=== PATIENT | male | born 1970 | race African-American/Black ===

== ENCOUNTER 2017-10-05 22:05 | Emergency (ER) | payer BC ==
[2017-10-05 22:22] VITALS: BP 115/67; PULSE 60; TEMP 98.6; BMI 24.0
--- NOTE | 2017-10-05 23:03 | PDOC ---
History of Present Illness - General History Source: Patient Exam Limitations: No Limitations - History of Present Illness Initial Comments: 10/05/17 23:23 The patient is a 47 year old male with a significant past medical history of hypertension who presents to the ED with 3 days of diarrhea. The patient reports 3 days of constant diarrhea and states everything he eats runs through him. Patient reports 3 episodes of loose stool today. He also reports generalized abdominal aching associated with diarrhea. Patient works at a [employer] and notes some of his coworkers are sick with a stomach flu. Denies fever or chills. Denies nausea or vomiting. Denies cough or rhinorrhea. Denies chest pain or shortness of breath. Denies any other symptoms. <Asael Rodriguez - Last Filed: 10/05/17 23:23> <Loyda Santoro - Last Filed: 10/06/17 05:04> - General Chief Complaint: Weakness Stated Complaint: FATIGUE Time Seen by Provider: 10/05/17 22:35 Past History <Asael Rodriguez - Last Filed: 10/05/17 23:23> - Past Medical History HTN: Yes (non compliant with medications) - Suicide/Smoking/Psychosocial Hx Smoking History: Never smoked Have you smoked in the past 12 months: No Hx Alcohol Use: No Drug/Substance Use Hx: Yes (weed years ago) <Loyda Santoro - Last Filed: 10/06/17 05:04> - Past Medical History Allergies/Adverse Reactions: Allergies Allergy/AdvReac Type Severity Reaction Status Date / Time shellfish derived Allergy Verified 09/18/16 10:42 Home Medications: Ambulatory Orders Ibuprofen [Motrin -] 800 mg PO TID PRN #30 tablet 11/18/14 Losartan/Hydrochlorothiazide [Hyzaar 100-25 Tablet] 1 each PO DAILY #14 tablet 11/18/14 Metoprolol Succinate [Toprol XL -] 100 mg PO DAILY #14 tab.sr.24h 11/18/14 Carvedilol [Coreg -] 12.5 mg PO BID #28 tablet 09/18/16 Losartan/Hydrochlorothiazide [Hyzaar 50-12.5 Tablet] 1 each PO ONCE #14 tablet 09/18/16 Review of Systems - Review of Systems Able to Perform ROS?: Yes Comments:: 10/05/17 23:24 CONSTITUTIONAL: Absent: fever, chills, diaphoresis, generalized weakness, malaise, loss of appetite HEENT: Absent: rhinorrhea, nasal congestion, throat pain, throat swelling, difficulty swallowing, mouth swelling, ear pain, eye pain, visual Changes CARDIOVASCULAR: Absent: chest pain, syncope, palpitations, irregular heart rate, lightheadedness , peripheral edema RESPIRATORY: Absent: cough, shortness of breath, dyspnea with exertion, orthopnea, wheezing, stridor, hemoptysis GASTROINTESTINAL: + diarrhea, abdominal cramping Absent: abdominal distension, nausea, vomiting, constipation, melena, hematochezia GENITOURINARY: Absent: dysuria, frequency, urgency, hesitancy, hematuria, flank pain, genital pain MUSCULOSKELETAL: Absent: myalgia, arthralgia, joint swelling SKIN: Absent: rash, itching, pallor HEMATOLOGIC/IMMUNOLOGIC: Absent: easy bleeding, easy bruising, lymphadenopathy, frequent infections ENDOCRINE: Absent: unexplained weight gain, unexplained weight loss, heat intolerance, cold intolerance NEUROLOGIC: Absent: headache, focal weakness or paresthesias, dizziness, unsteady gait, seizure, mental status changes, bladder or bowel incontinence PSYCHIATRIC: Absent: anxiety, depression, suicidal or homicidal ideation, hallucinations. All Other Systems: Reviewed and Negative <Asael Rodriguez - Last Filed: 10/05/17 23:23> *Physical Exam - Vital Signs Last Vital Signs Temp Pulse Resp BP Pulse Ox 98.6 F 60 20 115/67 100 10/05/17 22:16 10/05/17 22:16 10/05/17 22:16 10/05/17 22:16 10/05/17 22:16 - Physical Exam Comments: 10/05/17 23:24 GENERAL: + febrile Awake and alert. No acute distress. HEENT: Normocephalic, atraumatic. PERRLA, EOMI. No conjunctival pallor. Sclera are non- icteric. Moist mucous membranes. Oropharynx is clear. NECK: Supple. Full ROM. No JVD. Carotid pulses 2+ and symmetric, without bruits. No thyromegaly. NCo lymphadenopathy. CARDIOVASCULAR: + tachycardic, Regular rhythm. No murmurs, rubs, or gallops. Distal pulses are 2 + and symmetric. PULMONARY: No evidence of respiratory distress. Lungs clear to auscultation bilaterally. No wheezing, rales or rhonchi. ABDOMINAL: Soft. Non-tender. Non-distended. No rebound or guarding. No organomegaly. Normoactive bowel sounds. MUSCULOSKELETAL Normal range of motion at all joints. No bony deformities or tenderness. No CVA tenderness. EXTREMITIES: No cyanosis. No clubbing. No edema. No calf tenderness. SKIN: Warm and dry. Normal capillary refill. No rashes. No jaundice. NEUROLOGICAL: Alert, awake, appropriate. Cranial nerves 2-12 intact. No deficits to light touch and temperature in face, upper extremities and lower extremities. No motor deficits in the in face, upper extremities and lower extremities. Normoreflexic in the upper and lower extremities. Normal speech. Toes are down- going bilaterally. Gait is normal without ataxia. PSYCHIATRIC: Cooperative. Good eye contact. Appropriate mood and affect. <Asael Rodriguez - Last Filed: 10/05/17 23:23> - Vital Signs Last Vital Signs Temp Pulse Resp BP Pulse Ox 98.6 F 60 20 115/67 100 10/05/17 22:16 10/05/17 22:16 10/05/17 22:16 10/05/17 22:16 10/05/17 22:16 <Loyda Santoro - Last Filed: 10/06/17 05:04> ED Treatment Course - LABORATORY CBC & Chemistry Diagram: 10/05/17 23:20 10/05/17 23:20 <Asael Rodriguez - Last Filed: 10/05/17 23:23> - LABORATORY CBC & Chemistry Diagram: 10/05/17 23:20 10/05/17 23:20 <Loyda Santoro - Last Filed: 10/06/17 05:04> Medical Decision Making - Medical Decision Making 10/05/17 23:12 Pt comes with fever and chills and he has diarrhea x 3 days. He has PMHX of HTN ; works at the [employer]. Some ill contacts at work. No history of food poisoning. Pt has chills. HEENT normal. No cough. Pt will have labs and flu culture and he will get 1 L IVF. 10/06/17 00:33 Pt has an elevated WBC count; his BUN/cr elevated; he has low postassium He will receive K+ and Mag+ and he will get a cxr, as his flu culture is negative. 10/06/17 05:04 Flu negative; CXR appears normal. Pt was hydrated with a 2nd liter NSS and sent home. <Loyda Santoro - Last Filed: 10/06/17 05:04> *DC/Admit/Observation/Transfer - Attestations Scribe Attestion: 10/05/17 23:24 Documentation prepared by Asael Rodriguez, acting as certified medical assistant for Loyda Santoro MD <Asael Rodriguez - Last Filed: 10/05/17 23:23> - Discharge Dispostion Admit: No <Loyda Santoro - Last Filed: 10/06/17 05:04> Diagnosis at time of Disposition: Viral gastroenteritis - Discharge Dispostion Disposition: HOME Condition at time of disposition: Stable - Referrals Referrals: Hallie Nice MD [Primary Care Provider] - - Patient Instructions Printed Discharge Instructions: DI for Viral Gastroenteritis -- Adult - Post Discharge Activity Forms/Work/School Notes: Back to Work
[2017-10-05] MEDS ORDERED: SODIUM CHLORIDE 0.9% 500 ML INFUS.BAG IV ONE (23:07)
[2017-10-05] MEDS ORDERED: KETOROLAC TROMETHAMINE 30 MG/1 ML VIAL IVPUSH ONE (23:07)
[2017-10-05 23:31] LABS: HEMOGLOBIN 12.5 GM/dL (11.7-16.9); MCH 27.2 pg (25.7-33.7); MCHC 33.8 g/dl (32.0-35.9); MEAN CELL VOLUME 80.4 fl (80-96); MEAN PLT VOLUME 7.6 fl (7.5-11.1); PLATELET COUNT 271 K/MM3 (134-434); RDW 15.1 % (11.9-15.9); WHITE BLOOD COUNT 14.1 K/mm3 (4.0-10.0)
[2017-10-05] MEDS ORDERED: KETOROLAC TROMETHAMINE 30 MG/1 ML VIAL ONE (23:31)
[2017-10-06 00:03] LABS: ALBUMIN 2.8 g/dl (3.4-5.0); ANION GAP 12 (8-16); BILIRUBIN,TOTAL 1.1 mg/dL (0.2-1.0); BLOOD UREA NITROGEN 12 mg/dL (7-18); CALCIUM 7.7 mg/dL (8.5-10.1); CHLORIDE 98 mmol/L (98-107); CO2 25 mmol/L (21-32); CREATININE 1.4 mg/dL (0.7-1.3); GLUCOSE,RANDOM 91 mg/dL (74-106); POTASSIUM 3.4 mmol/L (3.5-5.1); SGOT/AST 83 U/L (15-37); SGPT/ALT 44 U/L (12-78); SODIUM 135 mmol/L (136-145); TOT PROT 6.1 g/dl (6.4-8.2)
[2017-10-06 00:04] LABS: ALK PHOS 219 U/L (45-117)
[2017-10-06] MEDS ORDERED: POTASSIUM CHLORIDE TABS 20 MEQ TABLET.ER (FP) PO ONE (00:14)
[2017-10-06] MEDS ORDERED: MAGNESIUM SULF 50% (8.12 MEQ/2 ML-1 GM VIAL) IVPB ONE (00:14)
[2017-10-06] MEDS ORDERED: POTASSIUM CHLORIDE TABS 10 MEQ TABLET.ER (FP) ONE (00:19)
[2017-10-06] MEDS ORDERED: MAGNESIUM SULF 50% (8.12 MEQ/2 ML-1 GM VIAL) ONE (00:19)
[2017-10-06] MEDS ORDERED: SODIUM CHLORIDE 0.9% 500 ML INFUS.BAG IV ONE (01:06)
== END 2017-10-06 02:37 | disposition home or self-care (01) ==
LOC: JER 22:05
PROC: 3E033GC Introduction of Other Therapeutic Substance into Peripheral Vein, Percutaneous Approach (ICD-10-PCS; principal; 2017-10-05)
PROC: 3E0333Z Introduction of Anti-inflammatory into Peripheral Vein, Percutaneous Approach (ICD-10-PCS; 2017-10-05)
DX: A08.4 Viral intestinal infection, unspecified (principal); B97.89 Other viral agents as the cause of diseases classified elsewhere; I10 Essential (primary) hypertension; Z91.14 Patient's other noncompliance with medication regimen; E87.6 Hypokalemia
CPT/HCPCS: 36415; 71046-TC; 80053; 85025; 87804; 99282-25

== ENCOUNTER 2017-10-07 20:13 | Inpatient (IN) | payer BC ==
--- NOTE | 2017-10-07 20:29 | PDOC ---
Rapid Medical Evaluation Time Seen by Provider: 10/07/17 20:27 Medical Evaluation: Allergies Allergy/AdvReac Type Severity Reaction Status Date / Time shellfish derived Allergy Verified 09/18/16 10:42 10/07/17 20:27 Pt presents to the ED: diarrhea x 4 days, no fever, poor appetite, Pt on brief exam: vss Pt ordered for: cbc, comp, lipase, lactic, ivf Pt to proceed to the ED Discharge Disposition - Diagnosis Diarrhea - Referrals - Patient Instructions - Post Discharge Activity
[2017-10-07] MEDS ORDERED: SODIUM CHLORIDE 1,000 ML IV STA (20:30)
[2017-10-07 20:32] VITALS: BMI 21.9
[2017-10-07 20:57] LABS: BASO % 0.1 % (0-2.0); EOS % 0.1 % (0-4.5); HEMATOCRIT 36.9 % (35.4-49); HEMOGLOBIN 12.3 GM/dL (11.7-16.9); MCH 26.8 pg (25.7-33.7); MCHC 33.3 g/dl (32.0-35.9); MEAN CELL VOLUME 80.5 fl (80-96); MEAN PLT VOLUME 8.3 fl (7.5-11.1); MONO % 6.3 % (3.8-10.2); NEUT % 89.5 % (42.8-82.8); PLATELET COUNT 259 K/MM3 (134-434); RBC 4.58 M/mm3 (4.00-5.60); RDW 15.4 % (11.9-15.9); WHITE BLOOD COUNT 19.7 K/mm3 (4.0-10.0)
[2017-10-07 21:40] LABS: ALBUMIN 2.6 g/dl (3.4-5.0); ANION GAP 10 (8-16); BLOOD UREA NITROGEN 15 mg/dL (7-18); CALCIUM 7.8 mg/dL (8.5-10.1); CHLORIDE 105 mmol/L (98-107); CO2 21 mmol/L (21-32); GLUCOSE,RANDOM 140 mg/dL (74-106); POTASSIUM 3.3 mmol/L (3.5-5.1); SODIUM 136 mmol/L (136-145)
[2017-10-07 21:44] LABS: ALK PHOS 202 U/L (45-117); BILIRUBIN,TOTAL 1.1 mg/dL (0.2-1.0); LIPASE 85 U/L (73-393); SGOT/AST 21 U/L (15-37); SGPT/ALT 30 U/L (12-78)
--- NOTE | 2017-10-07 21:49 | PDOC ---
Attending Attestation - HPI HPI: 10/07/17 22:49 The patient is a 47year old male, with a sigificant past medical history of HTN , who presents to the ED with 4 days of diarrhea and abdominal "achiness." The patient states that he has had multiple episodes of watery diarrhea for 4 days. He does not recall eating any abnormal foods. He denies recent travels. He reports not having eaten in at least one day because he has the loose bowel movements after eating. He denies any nausea, vomiting.He denies any fever, chills, chest pain, SOB. dizziness. He denies any history of drinking. No surgical History reported. - Physicial Exam PE: 10/07/17 22:53 Constitutional: Awake, alert, oriented. No acute distress. Head: Normocephalic. Atraumatic Eyes: PERRL. EOMI. Conjunctivae are not pale. ENT: Mucous membranes are moist and intact. Posterior pharynx without exudates or erythema. Uvula midline. Neck: Supple. Full ROM. No lymphadenopathy. Cardiovascular: (+) tachycardic rate. Regular rhythm. S1, S2 regular. Distal pulses are 2+ and symmetric. Pulmonary/Chest: No evidence of respiratory distress. Clear to auscultation bilaterally No wheezing, rales or rhonchi. Abdominal: Soft and non-distended. There is no tenderness. No rebound, guarding or rigidity. No organomegaly. No palpable masses. Good bowel sounds. Back: No CVA tenderness. Musculoskeletal: No edema. No cyanosis. No clubbing. Full range of motion in all extremities. Nocalf tenderness. Radial/pedal pulses are intact and 2+ bilaterally Skin: Skin is warm and dry. No petechiae. No purpura. Neurological: Alert and oriented to person, place, and time. Cranial nerves II -XII are grossly intact. Normal speech. Strength is grossly symmetric. No sensory deficits. Psychiatric: Good eye contact. Normal interaction, affect and behavior. __ Documentation prepared by Shara Farias, acting as medical affairs director for Mayelin London DO, <Shara Farias - Last Filed: 10/07/17 22:53> - Resident Resident Name: Sanju Nolasco - ED Attending Attestation I have performed the following: I have examined & evaluated the patient, The case was reviewed & discussed with the resident, I agree w/resident's findings & plan, Exceptions are as noted - Medical Decision Making 10/07/17 21:49 I, Dr. Mayelin London DO, attest that this document has been prepared under my direction and personally reviewed by me in its entirety. I further attest, that it accurately reflects all work, treatment, procedures and medical decision -making performed by me. 10/07/17 22:54 a/p: 47yo male with diarrhea x 3 days -elevated WBC -concern for intraabd infection -no recent abx or travel -nonbloody diarrhea -will obtain ct abd/pelvis -labs -will check cxr -will need obs vs admit pending lab/imaging results 10/08/17 00:02 ct shows colitis with perirectal abscess case discussed with Dr. Stapleton who will take the patient to the OR tomorrow NPO will send blood cultures, PT/PTT, Type and screen now IV abx ordered. call placed to PMD - Dr. Nice 10/08/17 00:34 Dr. Nice being covered by Dr. Oconnell - who is covered by the hospitalist service after 5p discussed with Dr. Aguilar who accepts pt to service <Mayelin Lodnon - Last Filed: 10/08/17 00:34> Discharge Disposition <Shara Farias - Last Filed: 10/07/17 22:53> - Discharge Dispostion Admit: Yes <Mayelin London - Last Filed: 10/08/17 00:34> - Diagnosis Diarrhea, Acute colitis, Perirectal abscess - Discharge Dispostion Condition at time of disposition: Guarded - Referrals Referrals: Hallie Nice MD [Primary Care Provider] - - Patient Instructions - Post Discharge Activity
[2017-10-07] MEDS ORDERED: SODIUM CHLORIDE 0.9% 1000 ML INFUS.BAG IV ONE ×2 (22:28→23:57)
--- NOTE | 2017-10-07 22:35 | PDOC ---
History of Present Illness - General Chief Complaint: Pain, Acute Stated Complaint: NAUSEA/VOMITING Time Seen by Provider: 10/07/17 20:27 History Source: Patient Exam Limitations: No Limitations - History of Present Illness Initial Comments: 10/07/17 22:29 The patient is a 47M with a PMH of HTN who presents to the ED with 4 days of diarrhea and abdominal achiness. The patient states that he has had diffuse, watery diarrhea for 4 days. He does not recall eating any abnormal foods. He denies any nausea, vomiting, but admits to anorexia x 1 day and the inability to hold on to any fluids. He denies any abdominal pain, but describes an achy sensation diffusely in his abdomen. He denies any fever, chills, CP, SOB. He denies any history of drinking. He has not had any prior abdominal surgeries. Past History - Past Medical History Allergies/Adverse Reactions: Allergies Allergy/AdvReac Type Severity Reaction Status Date / Time shellfish derived Allergy Verified 10/07/17 20:27 Home Medications: Ambulatory Orders Ibuprofen [Motrin -] 800 mg PO TID PRN #30 tablet 11/18/14 Losartan/Hydrochlorothiazide [Hyzaar 100-25 Tablet] 1 each PO DAILY #14 tablet 11/18/14 Metoprolol Succinate [Toprol XL -] 100 mg PO DAILY #14 tab.sr.24h 11/18/14 Carvedilol [Coreg -] 12.5 mg PO BID #28 tablet 09/18/16 COPD: No HTN: Yes (non compliant with medications) - Suicide/Smoking/Psychosocial Hx Smoking History: Unknown if ever smoked Have you smoked in the past 12 months: No Hx Alcohol Use: No Drug/Substance Use Hx: Yes (weed years ago) Review of Systems - Review of Systems Able to Perform ROS?: Yes Comments:: 10/07/17 22:45 GENERAL/CONSTITUTIONAL: No fever or chills. No weakness. HEAD, EYES, EARS, NOSE AND THROAT: No change in vision. No ear pain or discharge. No sore throat. GASTROINTESTINAL: Positive for diarrhea and abdominal aches. No nausea, vomiting , constipation, or abdominal pain. GENITOURINARY: No dysuria, frequency, hematuria, or change in urination. CARDIOVASCULAR: No chest pain, palpitations, or lightheadedness. RESPIRATORY: No cough, wheezing, shortness of breath, or hemoptysis. MUSCULOSKELETAL: No joint or muscle swelling or pain. No neck or back pain. SKIN: No rash or lesions. NEUROLOGIC: No headache, numbness, tingling, weakness, loss of consciousness, or change in strength/sensation. ENDOCRINE: No increased thirst. No abnormal weight change. HEMATOLOGIC/LYMPHATIC: No anemia, easy bleeding, or history of blood clots. ALLERGIC/IMMUNOLOGIC: No hives or skin allergy. Is the patient limited Malagasy proficient: No *Physical Exam - Vital Signs Last Vital Signs Temp Pulse Resp BP Pulse Ox 98.6 F 112 H 22 120/81 99 10/07/17 20:29 10/07/17 20:29 10/07/17 20:29 10/07/17 20:29 10/07/17 20:29 - Physical Exam Comments: 10/07/17 22:45 GENERAL: Well developed, well nourished. Awake and alert. No acute distress. HEENT: Normocephalic, atraumatic. Hearing grossly normal. Dry mucous membranes. PERRLA, EOMI. No conjunctival pallor. Sclera are non-icteric. Oropharynx is clear. NECK: Supple. Full ROM. No JVD. CARDIOVASCULAR: Regular rate and rhythm. No murmurs, rubs, or gallops. PULMONARY: No evidence of respiratory distress. Lungs clear to auscultation bilaterally. No wheezing, rales or rhonchi. ABDOMINAL: Soft. Non-tender. Non-distended. No rebound or guarding. GENITOURINARY: No CVA tenderness bilaterally. MUSCULOSKELETAL: Normal range of motion at all joints. No bony deformities or tenderness. EXTREMITIES: No cyanosis. No clubbing. No edema. No calf tenderness. SKIN: Warm and dry. Normal capillary refill. No rashes. No jaundice. NEUROLOGICAL: Alert, awake, appropriate. Cranial nerves 2-12 intact. Normal speech. Gait is normal without ataxia. PSYCHIATRIC: Cooperative. Good eye contact. Appropriate mood and affect. Heart Score/ECG Review #1 ECG reviewed & interpreted by me at: 00:26 General ECG Interpretation: Sinus Rhythm, Normal Rate, Normal Intervals, No acute ischemic changes Compared to previous ECG there are: No significant change ED Treatment Course - LABORATORY CBC & Chemistry Diagram: 10/07/17 20:35 10/07/17 20:35 - ADDITIONAL ORDERS Additional order review: Laboratory Results 10/07/17 10/07/17 20:35 20:35 Sodium 136 Potassium 3.3 L Chloride 105 Carbon Dioxide 21 Anion Gap 10 BUN 15 D Creatinine 1.0 D Creat Clearance w eGFR > 60 Random Glucose 140 H D Lactic Acid 1.4 Calcium 7.8 L Total Bilirubin 1.1 H AST 21 D ALT 30 D Alkaline Phosphatase 202 H Total Protein 6.0 L Albumin 2.6 L Lipase 85 10/07/17 20:35 RBC 4.58 MCV 80.5 MCHC 33.3 RDW 15.4 MPV 8.3 Neutrophils % 89.5 H Lymphocytes % 4.0 L Monocytes % 6.3 Eosinophils % 0.1 Basophils % 0.1 - RADIOLOGY Radiology Studies Ordered: Category Date Time Status ABDOMEN & PELVIS CT WITH CONTR [CT] Stat CT Scan 10/07/17 22:28 Ordered Medical Decision Making - Medical Decision Making 10/07/17 23:01 The patient is a 47M with a PMH of HTN who presents to the ED with complaints of diarrhea x 4 days with no acute abdominal pain. His labs are significant for a white count of 18+. Due to the nonspecific complaints of his abdomen and recurrent presentation, I will CT scan his abdomen. Lactic WNL. Pending imaging. 10/08/17 00:22 CTAP shows perirectal abscess. Surgeon decorator consultant aware and will operate tomorrow. Will admit to hospitalist. *DC/Admit/Observation/Transfer Diagnosis at time of Disposition: Diarrhea, Acute colitis, Perirectal abscess - Discharge Dispostion Condition at time of disposition: Guarded - Referrals - Patient Instructions - Post Discharge Activity
[2017-10-07] MEDS ORDERED: PIPERACILLIN/TAZOB 4.5 GM 4.5 GM in DEXTROSE 5%-WATER - 100 ML IVPB ONE (23:45)
[2017-10-07] MEDS ORDERED: PIPERACILLIN/TAZOB 4.5 GM/100 ML PREMIX BAG IVPB ONE (23:56)
[2017-10-07] MEDS ORDERED: POTASSIUM CHLORIDE 20 MEQ PREMIX IVPB 100 ML IVPB ONE (23:59)
[2017-10-08] MEDS ORDERED: PIPERACILLIN/TAZOB 4.5 GM 4.5 GM/100 ML BAG IVPB ONE (00:38)
--- NOTE | 2017-10-08 00:48 | HP ---
CHIEF COMPLAINT: Perirectal abscess PCP: Dr. Nice HISTORY OF PRESENT ILLNESS: 47 yo man w/ pmh of HTN who presents with four days of persistent non-bloody diarrhea and abdominal discomfort. Pt states he has had watery, nonbloody diarrhea for the past four days and was recently seen and discharged in ED at [facility] on 10/05 for the same symptoms. Pt denies any changes to diet, new medications, recent abx use and has no chronic GI conditions. He denies VERAS/ dizziness, fever, cough, SOB, CP, N/V, dysuria, constipation, new rashes, myalgias or new neuro symptoms. Pt endorses subjective chills two days ago and decreased appetite since onset of diarrhea, as well as no PO intake for last 24 hours. Pt endorses multiple sick coworkers w/ stomach flu. No recent travel. Pt has no history of adverse reactions to anesthesia and has unlimited exercise tolerance. No prior admissions for GI infections. ER course was notable for: (1)WBC 19.7 (2)K 3.3, Cr 1.4 (3)Tachy 112, afebrile Recent Travel: None PAST MEDICAL HISTORY: HTN PAST SURGICAL HISTORY: Shoulder surgery - no complications, adverse reactions to anesthesia Social History: Smoking: No Alcohol: No Drugs: No Family History: Noncontributory Allergies shellfish derived Allergy (Verified 10/07/17 20:27) HOME MEDICATIONS: Home Medications Medication Instructions Recorded Ibuprofen [Motrin -] 800 mg PO TID PRN #30 tablet 11/18/14 Losartan/Hydrochlorothiazide 1 each PO DAILY #14 tablet 11/18/14 [Hyzaar 100-25 Tablet] Metoprolol Succinate [Toprol XL -] 100 mg PO DAILY #14 tab.sr.24h 11/18/14 Carvedilol [Coreg -] 12.5 mg PO BID #28 tablet 09/18/16 REVIEW OF SYSTEMS CONSTITUTIONAL: Absent: fever, chills, diaphoresis, generalized weakness, malaise, loss of appetite, weight change HEENT: Absent: rhinorrhea, nasal congestion, throat pain, throat swelling, difficulty swallowing, mouth swelling, ear pain, eye pain, visual changes CARDIOVASCULAR: Absent: chest pain, syncope, palpitations, irregular heart rate, lightheadedness , peripheral edema RESPIRATORY: Absent: cough, shortness of breath, dyspnea with exertion, orthopnea, wheezing, stridor, hemoptysis GASTROINTESTINAL: diarrhea, abdominal pain, Absent: abdominal distension, nausea, vomiting, constipation, melena, hematochezia GENITOURINARY: Absent: dysuria, frequency, urgency, hesitancy, hematuria, flank pain, genital pain MUSCULOSKELETAL: Absent: myalgia, arthralgia, joint swelling, back pain, neck pain SKIN: Absent: rash, itching, pallor HEMATOLOGIC/IMMUNOLOGIC: Absent: easy bleeding, easy bruising, lymphadenopathy, frequent infections ENDOCRINE: Absent: unexplained weight gain, unexplained weight loss, heat intolerance, cold intolerance NEUROLOGIC: Absent: headache, focal weakness or paresthesias, dizziness, unsteady gait, seizure, mental status changes, bladder or bowel incontinence PSYCHIATRIC: Absent: anxiety, depression, suicidal or homicidal ideation, hallucinations. PHYSICAL EXAMINATION Vital Signs - 24 hr 10/07/17 20:29 Temperature 98.6 F Pulse Rate 112 H Respiratory 22 Rate Blood Pressure 120/81 O2 Sat by Pulse 99 Oximetry (%) GENERAL: Awake, alert, and fully oriented, in no acute distress. HEAD: Normal with no signs of trauma. EYES: Pupils equal, round and reactive to light, extraocular movements intact, sclera anicteric, conjunctiva clear. No lid lag. EARS, NOSE, THROAT: Ears normal, nares patent, oropharynx clear without exudates. Moist mucous membranes. NECK: Normal range of motion, supple without lymphadenopathy, JVD, or masses. LUNGS: Breath sounds equal, clear to auscultation bilaterally. No wheezes, and no crackles. No accessory muscle use. HEART: Tachy, Regular rate and rhythm, normal S1 and S2 without murmur, rub or gallop. ABDOMEN: Soft, nontender, not distended, normoactive bowel sounds, no guarding, no rebound, no masses. No hepatomegaly or splenomegaly. MUSCULOSKELETAL: Normal range of motion at all joints. No bony deformities or tenderness. No CVA tenderness. UPPER EXTREMITIES: 2+ pulses, warm, well-perfused. No cyanosis. No clubbing. No peripheral edema. LOWER EXTREMITIES: 2+ pulses, warm, well-perfused. No calf tenderness. No peripheral edema. NEUROLOGICAL: Cranial nerves II-XII intact. Normal speech. Normal gait. PSYCHIATRIC: Cooperative. Good eye contact. Appropriate mood and affect. SKIN: Warm, dry, normal turgor, no rashes or lesions noted, normal capillary refill. Laboratory Results - last 24 hr CBC, BMP 10/07/17 20:35 10/07/17 20:35 10/07/17 10/07/17 10/07/17 20:35 20:35 20:35 WBC 19.7 H D RBC 4.58 Hgb 12.3 Hct 36.9 MCV 80.5 MCH 26.8 MCHC 33.3 RDW 15.4 Plt Count 259 MPV 8.3 Neutrophils % 89.5 H Lymphocytes % 4.0 L Monocytes % 6.3 Eosinophils % 0.1 Basophils % 0.1 Sodium 136 Potassium 3.3 L Chloride 105 Carbon Dioxide 21 Anion Gap 10 BUN 15 D Creatinine 1.0 D Creat Clearance w eGFR > 60 Random Glucose 140 H D Lactic Acid 1.4 Calcium 7.8 L Total Bilirubin 1.1 H AST 21 D ALT 30 D Alkaline Phosphatase 202 H Total Protein 6.0 L Albumin 2.6 L Lipase 85 No micro EKG - pending CXR - Hyperinflation. No acute pathology. Degenerative changes Abdominal CT - Acute colitis is seen involving the rectosigmoid region. There is also identification of a 6 x 3.5 x 2.3 cm perirectal abscess which principally contains air/gas as discussed above. A small amount of this abscess extends along the left lateral and posterior borders of the mid rectum. There is apparent mild diffuse nonspecific urinary bladder wall thickening. ASSESSMENT/PLAN: 47 yo man w/ pmh of HTN who presents with four days of persistent non-bloody diarrhea and abdominal discomfort. CT abdomen notable for rectosigmoid colitis and perirectal abscess. Pt to be seen by surgical team (Dr. Stapleton) in AM for surgical intervention for abscess. ID consulted. #Sepsis secondary to rectosigmoid colitis/perirectal abscess - CT confirmed RS colitis/perirectal abscess; WBC 19.7; nrml lactate; no fever - ID consulted - Cardenas culture - Stool culture, O+P, c diff ag - Trend fever, WBC - Normal lactate - IVFs - General surgery consulted, Dr. Stapleton to see pt in AM - NPO after midnight - Type and screen, Coags - F/u EKG for pre-op clearance - Zosyn 3.375mg q6h, Flagyl 500mg q8h for abx; will defer to ID for further abx regimen #Elevated Alk Phos - Trend CMP - Consider RUQ if does not resolve #HTN - Cont home HTN meds PPX Heparin SubQ FEN NS 125cc/hr Daily BMPs, monitor hypoK NPO Plan discussed with attending, Dr. Jeff Nelson, PGY1 Visit type - Emergency Visit Emergency Visit: Yes ED Registration Date: 10/08/17 Care time: The patient presented to the Emergency Department on the above date and was hospitalized for further evaluation of their emergent condition. - New Patient This patient is new to me today: Yes Date on this admission: 10/08/17 - Critical Care Critical Care patient: No
[2017-10-08 01:01] LABS: INR 1.17 (0.82-1.09); PROTHROMBIN TIME (PATIENT) 13.2 SEC (9.98-11.88)
[2017-10-08 01:04] LABS: ACTIVATED PTT 36.9 SECONDS (26.9-34.4)
--- NOTE | 2017-10-08 01:20 | PN ---
Teaching Attending Note Name of Resident: Hebert Nelson ATTENDING PHYSICIAN STATEMENT I saw and evaluated the patient. I reviewed the resident's note and discussed the case with the resident. I agree with the resident's findings and plan as documented. SUBJECTIVE: 47 M with pmhx of HTN who presents with 4 day hx. of diarrhea and decreased Po Intake. Notes diarrhea is non-bloody and with decreased appetite. States he is continuing to have diarrhea. No chest pain, pressure, no shortness of breath. OBJECTIVE: Physical: VS: Vital Signs Period Temp Pulse Resp BP Sys/Bal Pulse Ox Last 24 Hr 98.6 F 112 22 120/81 99 GEN: NAD, Resting in bed HEENT: NCAT, PERRL, throat without CARD: RRR S1, S2 RESP: CTAB ABD: BSx4, NTD to palpation EXT:- C/C/E RECTAL: Deferred CBCD WBC 19.7 K/mm3 (4.0-10.0) H D 10/07/17 20:35 RBC 4.58 M/mm3 (4.00-5.60) 10/07/17 20:35 Hgb 12.3 GM/dL (11.7-16.9) 10/07/17 20:35 Hct 36.9 % (35.4-49) 10/07/17 20:35 MCV 80.5 fl (80-96) 10/07/17 20:35 MCHC 33.3 g/dl (32.0-35.9) 10/07/17 20:35 RDW 15.4 % (11.9-15.9) 10/07/17 20:35 Plt Count 259 K/MM3 (134-434) 10/07/17 20:35 MPV 8.3 fl (7.5-11.1) 10/07/17 20:35 CMP Sodium 136 mmol/L (136-145) 10/07/17 20:35 Potassium 3.3 mmol/L (3.5-5.1) L 10/07/17 20:35 Chloride 105 mmol/L (98-107) 10/07/17 20:35 Carbon Dioxide 21 mmol/L (21-32) 10/07/17 20:35 Anion Gap 10 (8-16) 10/07/17 20:35 BUN 15 mg/dL (7-18) D 10/07/17 20:35 Creatinine 1.0 mg/dL (0.7-1.3) D 10/07/17 20:35 Creat Clearance w eGFR > 60 (>60) 10/07/17 20:35 Random Glucose 140 mg/dL (74-106) H D 10/07/17 20:35 Calcium 7.8 mg/dL (8.5-10.1) L 10/07/17 20:35 Total Bilirubin 1.1 mg/dL (0.2-1.0) H 10/07/17 20:35 AST 21 U/L (15-37) D 10/07/17 20:35 ALT 30 U/L (12-78) D 10/07/17 20:35 Alkaline Phosphatase 202 U/L (45-117) H 10/07/17 20:35 Total Protein 6.0 g/dl (6.4-8.2) L 10/07/17 20:35 Albumin 2.6 g/dl (3.4-5.0) L 10/07/17 20:35 CT ABD: Concetric wall edema, involving rectum and mid-lower thirds of sigmoid colon, 6X3.5X2.3 cm collection of air/gas abutting left ventrolateral aspect of rectum suggestive of abscess, acute colitis EKG- PENDING ASSESSMENT AND PLAN: 47 M with pmhx of HTN who presents with 4 day hx. of diarrhea and decreased Po Intake, being admitted for Colitis and Rectal abcess 1.) Diarrhea/Colitis - Stool Studies - C. Diff - Flagyl 2.) Guerda-Rectal Abscess - NPO -Sx consult - Type & Screen - Coags - Zosyn - ID consult - Cx - IVF 3.) UTI - U Cx - Zosyn 4.)) Hypokalemia - Replete 5.) DVT Ppx - SCDS Place in Med-Sx
[2017-10-08] MEDS ORDERED: morphine CARPU-JECT 10 MG/1 ML DISP.SYRIN IVPUSH PRN (01:54)
[2017-10-08] MEDS ORDERED: KCL 10 MEQ IVPB 10 MEQ/100 ML INFUS.BAG IVPB SCH (02:00)
[2017-10-08] MEDS ORDERED: METRONIDAZOLE 500 MG PREMIXED 500 MG/100 ML MG IVPB ONE (03:53)
[2017-10-08] MEDS: METRONIDAZOLE 500 MG PREMIXED 500 MG/100 ML MG IVPB SCH ×3 (04:02→18:28)
[2017-10-08 04:57] LABS: URINE APPEARANCE CLOUDY; URINE BILIRUBIN NEGATIVE (NEGATIVE); URINE BLOOD 1+ (NEGATIVE); URINE COLOR DKYELLOW; URINE GLUCOSE (UA) NEGATIVE (NEGATIVE); URINE KETONE TRACE (NEGATIVE); URINE NITRITE NEGATIVE (NEGATIVE); URINE UROBILINOGEN 4.0 E.U/dl mg/dL (0.2-1.0)
[2017-10-08 05:18] LABS: URINE LEUK ESTERASE 3+ (NEGATIVE); URINE PROTEIN 2+ (NEGATIVE)
[2017-10-08] MEDS: POTASSIUM CHLORIDE 10 MEQ in SODIUM CHLORIDE 100 ML IVPB SCH ×3 (05:32→08:50)
[2017-10-08] MEDS ORDERED: PIPERACILLIN/TAZOB 3.375 GM/50 ML PRE-DOCKED IVPB ONE (06:00)
[2017-10-08] MEDS ORDERED: PIPERACILLIN/TAZOB 3.375 GM 3.375 GM in DEXTROSE 5%-WATER - 100 ML IVPB ONE (06:15)
[2017-10-08] MEDS ORDERED: HEPARIN NA (PORCINE) 5,000 UNITS/ML 1ML VIAL ONE (06:25)
[2017-10-08] MEDS: HEPARIN NA (PORCINE) 5,000 UNITS/ML 1ML VIAL SQ SCH ×3 (06:30→22:05)
[2017-10-08 06:53] LABS: BASO % 0.2 % (0-2.0); EOS % 0.1 % (0-4.5); HEMATOCRIT 30.7 % (35.4-49); HEMOGLOBIN 10.1 GM/dL (11.7-16.9); LYMPH % 4.4 % (8-40); MCH 26.9 pg (25.7-33.7); MCHC 33.1 g/dl (32.0-35.9); MEAN CELL VOLUME 81.2 fl (80-96); MEAN PLT VOLUME 8.5 fl (7.5-11.1); MONO % 7.3 % (3.8-10.2); PLATELET COUNT 225 K/MM3 (134-434); RBC 3.78 M/mm3 (4.00-5.60); RDW 15.6 % (11.9-15.9); WHITE BLOOD COUNT 14.1 K/mm3 (4.0-10.0)
[2017-10-08 07:19] LABS: ANION GAP 11 (8-16); BILIRUBIN,TOTAL 0.8 mg/dL (0.2-1.0); BLOOD UREA NITROGEN 14 mg/dL (7-18); CALCIUM 7.1 mg/dL (8.5-10.1); CHLORIDE 110 mmol/L (98-107); CO2 21 mmol/L (21-32); CREATININE 0.9 mg/dL (0.7-1.3); GLUCOSE,RANDOM 69 mg/dL (74-106); POTASSIUM 3.6 mmol/L (3.5-5.1); SGOT/AST 15 U/L (15-37); SGPT/ALT 21 U/L (12-78); SODIUM 142 mmol/L (136-145)
[2017-10-08 07:20] LABS: ALK PHOS 160 U/L (45-117)
[2017-10-08] MEDS: SODIUM CHLORIDE 1,000 ML IV SCH (07:40)
[2017-10-08 07:53] LABS: INR 1.19 (0.82-1.09); PROTHROMBIN TIME (PATIENT) 13.5 SEC (9.98-11.88)
--- NOTE | 2017-10-08 11:35 | PN ---
Progress Note (short form) - Note Progress Note: ID Consult dictated Rectosigmoid colitis Perirectal abscess Leukocytosis, possible sepsis secondary to colitis Wt loss Await blood c/s, stool studies For OR this am Empiric zosyn/ flagyl HIV test ( pt consents )
[2017-10-08] MEDS ORDERED: PROPOFOL 20 ML ONE ×2 (11:56)
[2017-10-08] MEDS ORDERED: KETOROLAC TROMETHAMINE 30 MG/1 ML VIAL ONE (11:57)
[2017-10-08] MEDS ORDERED: MIDAZOLAM HCL 2 MG/2 ML SINGLE DOSE VIAL ONE (12:00)
--- NOTE | 2017-10-08 12:15 | CONSULT ---
Consult Consult Specialty:: Surgery Referred by:: Anish Bledsoe. - History of Present Illness Chief Complaint: Rectal pain , and diarrhea for 4 days. History of Present Illness: C/O diarrhea for 4 days. Denies h/o colitis, or inflammatory bowel disease. H/O hypertension. 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 Medical History Cardio/Vascular: Yes: HTN - Alcohol/Substance Use Hx Alcohol Use: No - Smoking History Smoking history: Unknown if ever smoked Have you smoked in the past 12 months: No Home Medications - Allergies Allergies/Adverse Reactions: Allergies Allergy/AdvReac Type Severity Reaction Status Date / Time shellfish derived Allergy Verified 10/07/17 20:27 - Home Medications Home Medications: Ambulatory Orders Ibuprofen [Motrin -] 800 mg PO TID PRN #30 tablet 11/18/14 Losartan/Hydrochlorothiazide [Hyzaar 100-25 Tablet] 1 each PO DAILY #14 tablet 11/18/14 Metoprolol Succinate [Toprol XL -] 100 mg PO DAILY #14 tab.sr.24h 11/18/14 Carvedilol [Coreg -] 12.5 mg PO BID #28 tablet 09/18/16 Physical Exam Vital Signs: Vital Signs Temperature 97.9 F 10/08/17 11:00 Pulse Rate 77 10/08/17 11:00 Respiratory Rate 20 10/08/17 11:00 Blood Pressure 126/88 10/08/17 11:00 O2 Sat by Pulse Oximetry (%) 98 10/08/17 07:05 Labs: CBC, BMP 10/08/17 06:34 10/08/17 06:33 Imaging - Results Cat Scan: Report Reviewed, Image Reviewed Problem List - Problems (1) Perirectal abscess Code(s): K61.1 - RECTAL ABSCESS (2) Diarrhea Code(s): R19.7 - DIARRHEA, UNSPECIFIED Qualifiers: Diarrhea type: unspecified type Qualified Code(s): R19.7 - Diarrhea, unspecified (3) Hypertension Code(s): I10 - ESSENTIAL (PRIMARY) HYPERTENSION Assessment/Plan Impression : large perirectal absecc. Will plan , examination under anesthesia, and drainage of abscess,. Consent obtained. Antibiotics given.
--- NOTE | 2017-10-08 12:46 | OP ---
Operative Note - Note: Operative Date: 10/08/17 Pre-Operative Diagnosis: Perirectal abscess., and diarrhea. Operation: Examination under anesthesia, proctosigmoidoscopy with rectal biopsy. 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 Post-Operative Diagnosis: Same as Pre-op (Rectosigmoid mass.) Surgeon: Khloe Stapleton Anesthesia: General Specimens Removed: Rectosigmoid biopsy. Estimated Blood Loss (mls): 10 Operative Report Dictated: Yes
[2017-10-08] MEDS ORDERED: ONDANSETRON 4 MG/2 ML VIAL IVPUSH PRN (12:52)
[2017-10-08] MEDS ORDERED: PROMETHAZINE HCL 25 MG/1 ML VIAL IVPB PRN (12:52)
[2017-10-08] MEDS ORDERED: LACTATED RINGERS SOLUTION 1,000 ML IV SCH (13:00)
--- NOTE | 2017-10-08 13:38 | CONS ---
DATE OF CONSULTATION: 10/08/2017 HISTORY OF PRESENT ILLNESS: The patient is a 47-year-old male with history of hypertension evaluated for perirectal abscess. The patient has not been feeling well for the past 3-4 days. He has had perfuse nonbloody diarrhea associated with anorexia, weight loss, and some crampy abdominal pain. He was seen in the emergency room on October 05 and was treated symptomatically. He returns now with persistent nonbloody diarrhea and continued anorexia. In the emergency room, he was noted to have an elevated white blood cell count. CT scan of the abdomen and pelvis was performed and showed edema of the rectosigmoid wall consistent with rectosigmoid colitis as well as a perirectal abscess. He was seen by Surgery and is scheduled to have an incision and drainage in the OR this morning. The patient denies any blood diarrhea. No associated fever or chills. He reports that one coworker has had similar gastrointestinal symptoms. He lives at home with his significant other and children, who are well without any GI symptoms. He denies any recent antibiotic therapy. No recent travel. No recent consumption of pietro lettuce. He denies risk factors for HIV. He states he tested HIV negative in the recent past. He lives at home with his significant female other. He denies receptive anal intercourse. PAST MEDICAL HISTORY: Positive for hypertension. MEDICATIONS: Include Motrin, Hyzaar, Toprol, Coreg. ALLERGIES: To SHELLFISH. SOCIAL HISTORY: He works in the [employer]. He is a nonsmoker, nondrinker. SYSTEMS REVIEW: General: Positive for weight loss unquantified. Cardiac: Negative for chest pain or palpitations. Respiratory: Negative for cough or sputum production. Gastrointestinal: As per HPI. Genitourinary: Negative for urinary tract infection. LABORATORY DATA: White count on admission 19.7, presently 14.1, 88 neutrophils, 4 lymphocytes, 7 monocytes, hematocrit 30.7, platelet count 225. BUN 14, creatinine 0.9. Liver enzymes total bilirubin 0.8, alkaline phosphatase 160, AST 15, lipase 85. Urinalysis 286 white cells. C. difficult negative. Blood cultures and stool cultures pending as are stool for ova and parasites. Chest x-ray negative for acute infiltrates. PHYSICAL EXAMINATION: General: He is awake and alert. She is in no acute distress. He is thin. Vital signs: Temperature 97.9, blood pressure 126/88, pulse 77 and regular, respirations 20 per minute. HEENT: Sclerae anicteric. Dry mucous membranes. Neck: Supple. No palpable nodes. Heart: Heart sounds S1, S2. Lungs: Clear. Abdomen: Soft. Mild diffuse tenderness to palpation. No perirectal tenderness. Extremities: Negative for edema. IMPRESSION: 1. Rectosigmoid colitis. 2. Perirectal abscess. 3. Leukocytosis, possible sepsis secondary to colitis. 4. Weight loss. Await blood culture, stool for culture and sensitivity, ova and parasite, and C. difficile, for OR this morning for incision and drainage, empiric antibiotic coverage with Zosyn and Flagyl, HIV testing (patient consents). Thank you for the kind referral. JOSE F SEVERINO M.D. [id number]
--- NOTE | 2017-10-08 14:45 | EKG ---
Test Reason : Blood Pressure : / mmHG Vent. Rate : 089 BPM Atrial Rate : 089 BPM P-R Int : 152 ms QRS Dur : 090 ms QT Int : 388 ms P-R-T Axes : 022 031 030 degrees QTc Int : 472 ms NORMAL SINUS RHYTHM NORMAL ECG WHEN COMPARED WITH ECG OF 18-SEP-2016 12:14, T WAVE INVERSION NO LONGER EVIDENT IN LATERAL LEADS Confirmed by Trip Cartagena MD ([id number]) on 10/08/2017 2:45:06 PM Referred By: Confirmed By:Trip Cartagena MD
--- NOTE | 2017-10-08 18:00 | CON.GU ---
Consult Consult Specialty:: Referred by:: medicine Reason for Consultation:: bladder wall thickening - History of Present Illness Chief Complaint: bladder wall thickening History of Present Illness: 47 year old male with a perirectal abscess/process on CT scan. The abscess extends to near the seminal vesicle. He denies any history of urinary complaints including UTIs or pneumaturia. Patient underwent rigig sig today - History Source History Provided By: Patient, Medical Record Limitations to Obtaining History: No Limitations - Past Medical History Cardio/Vascular: Yes: HTN Renal/: No: Renal Failure, Renal Inusuff, BPH, Cancer, Hematuria, Hemodialysis , Neurogenic Bladder, Renal Calculi, UTI, Other - Alcohol/Substance Use Hx Alcohol Use: No - Smoking History Smoking history: Never smoked Have you smoked in the past 12 months: No Home Medications - Allergies Allergies/Adverse Reactions: Allergies Allergy/AdvReac Type Severity Reaction Status Date / Time shellfish derived Allergy Verified 10/07/17 20:27 - Home Medications Home Medications: Ambulatory Orders Ibuprofen [Motrin -] 800 mg PO TID PRN #30 tablet 11/18/14 Losartan/Hydrochlorothiazide [Hyzaar 100-25 Tablet] 1 each PO DAILY #14 tablet 11/18/14 Metoprolol Succinate [Toprol XL -] 100 mg PO DAILY #14 tab.sr.24h 11/18/14 Carvedilol [Coreg -] 12.5 mg PO BID #28 tablet 09/18/16 Review of Systems - Review of Systems Genitourinary: reports: No Symptoms Physical Exam- Vital Signs: Vital Signs Temperature 97.4 F L 10/08/17 15:30 Pulse Rate 70 10/08/17 15:30 Respiratory Rate 18 10/08/17 16:22 Blood Pressure 113/73 10/08/17 15:30 O2 Sat by Pulse Oximetry (%) 100 10/08/17 16:22 Renal/: No: Bladder Distention, CVA Tenderness - Left, CVA Tenderness - Right Labs: CBC, BMP 10/08/17 06:34 10/08/17 06:33 Imaging - Results Cat Scan: Report Reviewed Problem List - Problems (1) Bladder wall thickening Assessment/Plan: this appears to either be chronic or secondary to acute perirectal process. Lack of history of urinary complaints implies that there is no acute process. Code(s): N32.89 - OTHER SPECIFIED DISORDERS OF BLADDER
--- NOTE | 2017-10-08 19:09 | OP ---
DATE OF OPERATION: 10/08/2017 PREOPERATIVE DIAGNOSIS: Possible high perirectal abscess and diarrhea. 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 OPERATIVE PROCEDURE: Examination under anesthesia and proctosigmoidoscopy with rigid sigmoidoscope. SURGEON: Edith Stapleton MD ANESTHESIA: General anesthesia. ANESTHESIOLOGIST: Lj Tamayo MD OPERATIVE DESCRIPTION: This 47-year-old man was admitted last night with history of 5-10 days of diarrhea and liquid bowel movement. He was examined in the emergency room. A CAT scan was performed which suggested perirectal abscess containing air and gas high up in the rectal area. There was significant induration on the posterior aspect, and the left lateral aspect of the rectosigmoid region with a hard palpable mass. There was no sign of any inflammatory reaction and no sign of any free air on rectal examination. It was, therefore, decided to do a proctosigmoidoscopy with a rigid scope. At about 10 cm, there was some narrowing of the rectosigmoid wall, mainly at its posterior and left lateral aspect. It was possible to pass the sigmoidoscope above this indurated area. A punch biopsy was obtained with the rigid sigmoidoscope from this area. There was no bleeding at this site after the biopsy. The scope was then removed. IMPRESSION: Rectosigmoid mass on the posterior and left lateral portion of the wall of the bowel. Patient will need a formal colonoscopy and GI consultation as well as possible evaluation of the bladder and a cystoscopy. John [id number] MTDD
[2017-10-08] MEDS: PIPERACILLIN/TAZOB 3.375 GM 3.375 GM in DEXTROSE 5%-WATER - 100 ML IVPB SCH (21:05)
--- NOTE | 2017-10-08 21:22 | CON.GI ---
Consult Consult Specialty:: Gastroenterology Referred by:: Dr. Cyn Oconnell Reason for Consultation:: Rectal mass - History of Present Illness Chief Complaint: Diarrhea and weight loss History of Present Illness: 47M gives h/o weight loss from 170 to 140 lbs with loss of appetite. For the past 3 weeks he has been having 4-6 loose bowel movements daily. This was preceded by a period of constipation and narrowed stools since 08/16. No rectal bleeding. NO FH of colon cancer but his father had colon polyps removed. His sister of ovarian cancer in her 30s and an uncle had thyroid cancer. CT suggested a perirectal abscess but Dr. 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 He is followed by Dr Hallie Nice. 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: Yes: CVA (with dizziness and LLE paresis about 1 year ago which resolved at [facility]) Cardio/Vascular: Yes: HTN, Hyperlipdemia Gastrointestinal: Yes: Constipation - Past Surgical History Additional Surgical History: Right rotator cuff repair - Alcohol/Substance Use Hx Alcohol Use: No History of Substance Use: reports: None - Smoking History Smoking history: Never smoked Have you smoked in the past 12 months: No - Social History Usual Living Arrangement: With Spouse ADL: Independent 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 Place of : [facility] History of Recent Travel: No Home Medications - Allergies Allergies/Adverse Reactions: Allergies Allergy/AdvReac Type Severity Reaction Status Date / Time shellfish derived Allergy Verified 10/07/17 20:27 - Home Medications Home Medications: Ambulatory Orders Ibuprofen [Motrin -] 800 mg PO TID PRN #30 tablet 11/18/14 Losartan/Hydrochlorothiazide [Hyzaar 100-25 Tablet] 1 each PO DAILY #14 tablet 11/18/14 Metoprolol Succinate [Toprol XL -] 100 mg PO DAILY #14 tab.sr.24h 11/18/14 Carvedilol [Coreg -] 12.5 mg PO BID #28 tablet 09/18/16 Family Disease History - Family Disease History Family Disease History: CA: Sister ( ovarian cancer in her 30s), Other: Father (CVA, HTN, colon polyps ), Mother (HTN, no polyps on colonoscopy) Other Family History: Uncle with thyroid cancer Review of Systems - Review of Systems Constitutional: reports: Loss of Appetite, Unintentional Wgt. Loss, Weakness Eyes: reports: No Symptoms HENT: reports: No Symptoms Neck: reports: No Symptoms Cardiovascular: reports: No Symptoms Respiratory: reports: No Symptoms Gastrointestinal: reports: Abdominal Pain, Constipation, Diarrhea Genitourinary: reports: No Symptoms Musculoskeletal: reports: No Symptoms Integumentary: reports: No Symptoms Neurological: reports: No Symptoms Endocrine: reports: No Symptoms Hematology/Lymphatic: reports: No Symptoms Psychiatric: reports: No Symptoms Physical Exam-GI Vital Signs: Vital Signs Temperature 98.3 F 10/08/17 18:00 Pulse Rate 68 10/08/17 18:00 Respiratory Rate 20 10/08/17 18:00 Blood Pressure 118/69 10/08/17 18:00 O2 Sat by Pulse Oximetry (%) 100 10/08/17 16:22 Laboratory Tests 10/07/17 10/08/17 10/08/17 20:35 06:33 06:34 WBC 14.1 H Hgb 10.1 L D Hct 30.7 L D Plt Count 225 BUN 14 Creatinine 0.9 Total Bilirubin 0.8 D Albumin 2.0 L D Lipase 85 Constitutional: Yes: Anxious Eyes: Yes: Conjunctiva Clear HENT: Yes: Normocephalic Neck: Yes: Supple Cardiovascular: Yes: Regular Rate and Rhythm Respiratory: Yes: CTA Bilaterally ...Auscultate: Yes: Normoactive Bowel Sounds ...Palpate: Yes: Soft, Other (nontender) ...Rectal Exam: Yes: Guaiac Positive, Mass (palpable upper rectal mass), Sphincter Tone Normal Genitourinary: Yes: Other (normal testicles, no hernias) Extremities: Yes: WNL Edema: No Peripheral Pulses WNL: Yes Integumentary: Yes: WNL Neurological: Yes: Alert, Oriented ...Motor Strength: WNL Labs: CBC, BMP 10/08/17 06:34 10/08/17 06:33 INR, PTT INR 1.19 (0.82-1.09) H 10/08/17 06:34 Imaging - Results Cat Scan: Report Reviewed (Jarred Urbina Name: CAROLYNN FRANZ DEPARTMENT OF RADIOLOGY Phys: Raffi Conley DO : 1970 Age: 47 Sex: M [facility] Acct: [id number] Loc: [facility] [address] [facility] Exam Date: 10/07/17 Status: BEATRIZ Calixto Unit Number: [id number] EXAM#: TYPE/EXAM: RESULT: [id number] CT/ABDOMEN PELVIS CT W/O CONTR Abdomen and pelvis CT (without contrast) Clinical information: diarrhea Multiplanar imaging was performed. As requested no intravenous or oral contrast was administered. No prior imaging studies are available at this facility for direct comparison. Concentric wall edema is seen involving the length of the rectum as well as the mid and lower thirds of the sigmoid colon. Perirectal soft tissue edema is noted. An approximately 6 x 3.5 x 2.3 cm collection of air/gas is noted abutting the left ventrolateral aspect of the rectum suggestive of abscess formation. A small amount of fluid is also seen within this collection. A trace amount of air/gas is seen abutting the left lateral and left posterolateral aspects of the rectum which appears to communicate with a small locule of extraluminal air/gas abutting the posterior border of the mid rectum. The remainder of the colon demonstrates diffuse fecal retention which is at least moderate. There is mild diffuse urinary bladder wall thickening which may be on the basis of acute or chronic cystitis, chronic outlet obstruction or possibly being artifactual due to limited distention. Clinical/laboratory correlation is suggested. The previously described 6 x 3.5 x 2.3 cm abscess abuts and mildly deforms the left seminal vesicle. No evidence of pneumoperitoneum, or bowel obstruction. The liver, spleen, pancreas, adrenal glands and kidneys demonstrate no discrete noncontrast pathology. There is no aortic aneurysm. No gross lymphadenopathy is identified. Moderate to marked L5-S1 degenerative disc changes are noted. No gross small bowel pathology is seen. IMPRESSION: Acute colitis is seen involving the rectosigmoid region. There is also identification of a 6 x 3.5 x 2.3 cm perirectal abscess which principally contains air/gas as discussed above. A small amount of this abscess extends along the left lateral and posterior borders of the mid rectum. There is apparent mild diffuse nonspecific urinary bladder wall thickening. Reported By: Hubert Ames MD 10/07/17 2660 [address] Technologist: Wiafe,Richard Transcribed Date/Time: 10/07/17 [id number] Vegetable Buncher: Hubert Ames Printed Date/Time: By: Signed by: Hubert Ames Signed on: 23:51) Problem List - Problems (1) Rectal mass Assessment/Plan: Digital exam confirms the upper rectal mass found by Dr. Stapleton. I have informed Carolynn of the suspicion of cancer and likely need for a combination of chemotherapy and RT and surgery. I have proposed that he undergo a colonoscopy to assess the tumor length, to tattoo and biopsy it and to examine the remainder of the colon to exclude other neoplastic sites. I have informed him of the risk for perforation and hemorrhage. He has granted an informed consent. Will give bowel prep over the next two days to allow for a colonoscopy on 10/11. Will consult oncology in the interim. Code(s): K62.9 - DISEASE OF ANUS AND RECTUM, UNSPECIFIED (2) Weight loss, non-intentional Assessment/Plan: Due to rectal cancer Code(s): R63.4 - ABNORMAL WEIGHT LOSS (3) Narrowing of stools Assessment/Plan: due to obstructing rectal cancer Code(s): R19.5 - OTHER FECAL ABNORMALITIES (4) CVA (cerebral vascular accident) Code(s): I63.9 - CEREBRAL INFARCTION, UNSPECIFIED (5) Large bowel obstruction Code(s): K56.609 - UNSP INTESTNL OBST, UNSP TO PARTIAL VERSUS COMPLETE OBST (6) Anemia due to blood loss, chronic Assessment/Plan: due to obstructing rectal cancer Code(s): D50.0 - IRON DEFICIENCY ANEMIA SECONDARY TO BLOOD LOSS (CHRONIC) Assessment/Plan Golytely 2 liters 10/09 and again on 10/10 Colonoscopy on 10/01 Oncology consultation Await path
[2017-10-09] MEDS: METRONIDAZOLE 500 MG PREMIXED 500 MG/100 ML MG IVPB SCH ×3 (01:00→18:44)
[2017-10-09] MEDS: PIPERACILLIN/TAZOB 3.375 GM 3.375 GM in DEXTROSE 5%-WATER - 100 ML IVPB SCH ×3 (01:18→18:41)
[2017-10-09] MEDS: HEPARIN NA (PORCINE) 5,000 UNITS/ML 1ML VIAL SQ SCH ×3 (06:25→21:52)
[2017-10-09 07:42] LABS: BASO % 0.3 % (0-2.0); EOS % 0.6 % (0-4.5); HEMATOCRIT 33.1 % (35.4-49); HEMOGLOBIN 10.6 GM/dL (11.7-16.9); LYMPH % 10.1 % (8-40); MCH 26.3 pg (25.7-33.7); MCHC 31.9 g/dl (32.0-35.9); MEAN CELL VOLUME 82.3 fl (80-96); MEAN PLT VOLUME 8.1 fl (7.5-11.1); MONO % 6.4 % (3.8-10.2); NEUT % 82.6 % (42.8-82.8); PLATELET COUNT 221 K/MM3 (134-434); RBC 4.01 M/mm3 (4.00-5.60); RDW 16.1 % (11.9-15.9); RETICULOCYTES 0.33 % (0.5-1.5); WHITE BLOOD COUNT 10.3 K/mm3 (4.0-10.0)
[2017-10-09 07:53] LABS: INR 1.17 (0.82-1.09); PROTHROMBIN TIME (PATIENT) 13.2 SEC (9.98-11.88)
[2017-10-09 08:22] LABS: ANION GAP 10 (8-16); BLOOD UREA NITROGEN 12 mg/dL (7-18); CALCIUM 7.5 mg/dL (8.5-10.1); CHLORIDE 110 mmol/L (98-107); CO2 22 mmol/L (21-32); CREATININE 0.9 mg/dL (0.7-1.3); GLUCOSE,RANDOM 76 mg/dL (74-106); POTASSIUM 3.7 mmol/L (3.5-5.1); SODIUM 142 mmol/L (136-145)
[2017-10-09] MEDS: SODIUM CHLORIDE 1,000 ML IV SCH (08:45)
[2017-10-09] MEDS ORDERED: PEG3350/SOD SULF,BICARB,CL/KCL 4,000 ML SOLN.RECON PO ONE (09:00)
--- NOTE | 2017-10-09 09:25 | PN ---
Progress Note (short form) - Note Progress Note: patient seen and examined Comfortable Chart reviewed All consults noted and appreciated I had discussed case with Dr. Stapleton yesterday I also discussed with oncologist today Patient denies pain Vital Signs Temp 98.0 F 10/09/17 06:00 Pulse 60 10/09/17 06:00 Resp 18 10/09/17 06:00 BP 125/83 10/09/17 06:00 Pulse Ox 99 10/08/17 21:00 Intake & Output 10/08/17 10/08/17 10/09/17 11:59 23:59 11:59 Intake Total 1250 2200 2000 Balance 1250 2200 2000 Weight 140 lb Intake: IV 850 1700 1250 Normal Saline - 1,000 ml 850 1250 @ 125 mls/hr IV ASDIR [facility] Rx#:[id number] IVPB 400 300 Oral 500 450 Other: Voiding Method Toilet # Unmeasured Voids Void 3 Bowel Movement Yes # Bowel Movements 6 Height 5 ft 7 in Body Mass Index (BMI) 21.9 Weight Measurement Method Stated by Patient Active Medications Bisacodyl (Dulcolax -) 20 mg PO ONCE ONE Stop: 10/10/17 20:01 Fentanyl (Sublimaze Injection -) 50 mcg IVPUSH [id number] PRN PRN Reason: PAIN Heparin Sodium (Porcine) (Heparin -) 5,000 unit SQ TID AJ Stop: 10/10/17 12:00 Last Admin: 10/09/17 06:25 Dose: 5,000 unit Metronidazole (Flagyl 500mg Premixed Ivpb -) 500 mg in 100 mls @ 100 mls/hr IVPB Q8H-IV AJ Last Admin: 10/09/17 01:00 Dose: 100 mls/hr Sodium Chloride (Normal Saline -) 1,000 mls @ 125 mls/hr IV ASDIR AJ Last Admin: 10/09/17 08:45 Dose: 125 mls/hr Piperacillin Sod/Tazobactam (Sod 3.375 gm/ Dextrose) 100 mls @ 200 mls/hr IVPB Q8H-IV AJ PRN Reason: Protocol Last Admin: 10/09/17 01:18 Dose: 200 mls/hr Morphine Sulfate (Morphine Injection -) 2 mg IVPUSH Q4H PRN PRN Reason: PAIN Last Admin: 10/09/17 08:46 Dose: 2 mg Ondansetron HCl (Zofran Injection) 4 mg IVPUSH Q6H PRN PRN Reason: NAUSEA AND/OR VOMITING Promethazine HCl (Phenergan Injection -) 12.5 mg IVPB Q6H PRN PRN Reason: NAUSEA-FOR RESCUE AFTER 15 MIN CBC, BMP 10/09/17 07:00 10/09/17 07:00 Microbiology 10/08/17 00:24 Blood Culture - Preliminary Blood - Peripheral Venous NO GROWTH OBTAINED AFTER 24 HOURS, INCUBATION TO CONTINUE FOR 4 DAYS. 10/08/17 00:24 Blood Culture - Preliminary Blood - Peripheral Venous NO GROWTH OBTAINED AFTER 24 HOURS, INCUBATION TO CONTINUE FOR 4 DAYS. 10/08/17 07:18 Clostridium difficile Antigen (JOSÉ MIGUEL) - Final Stool Clostridium difficile Toxin Assay - Final Physical Exam Constitutional: Yes: Well Nourished, No Distress, Calm/ Comfortable Eyes: Yes: WNL, Conjunctiva Clear, EOM Intact HENT: Yes: Atraumatic, Normocephalic Neck: Yes: Supple, Trachea Midline/ no lymphadenopathy Cardiovascular: Yes: Regular Rate and Rhythm Respiratory: Yes: clear to auscultation Gastrointestinal: Yes: Soft, Abdomen, Obese Extremities: Yes: WNL Edema: No Neurological: Yes: Alert, Oriented Psychiatric: Yes: Alert, Oriented Assessment/Plan rectal sigmoidal mass Highly suspicious for malignancy. Status post biopsy MRI and CT chest pending colonoscopy has been scheduled for October 11 consult noted and appreciated continue present care for now Will follow. Will discuss this patient's private PMD Dr. Nice also. Problem List - Problems (1) Anemia due to blood loss, chronic Code(s): D50.0 - IRON DEFICIENCY ANEMIA SECONDARY TO BLOOD LOSS (CHRONIC) (2) Bladder wall thickening Code(s): N32.89 - OTHER SPECIFIED DISORDERS OF BLADDER (3) Hypertension Code(s): I10 - ESSENTIAL (PRIMARY) HYPERTENSION (4) Large bowel obstruction Code(s): K56.609 - UNSP INTESTNL OBST, UNSP TO PARTIAL VERSUS COMPLETE OBST (5) Rectal mass Code(s): K62.9 - DISEASE OF ANUS AND RECTUM, UNSPECIFIED (6) Weight loss, non-intentional Code(s): R63.4 - ABNORMAL WEIGHT LOSS
--- NOTE | 2017-10-09 10:02 | CONSULT ---
Consult Consult Specialty:: Oncology Reason for Consultation:: possible rectal ca - History of Present Illness History of Present Illness: is a 47 year old male admitted by for concern for liss-rectal abscess. His ROS is positive for h/o weight loss and loss of appetite. Family Hx reviewed. he is s/p a rigid sigmoidoscopy , which showed an obstructing rectal mass and was biopsied. 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: CVA (with dizziness and LLE paresis about 1 year ago which resolved at [facility]) Cardio/Vascular: Yes: HTN, Hyperlipdemia Gastrointestinal: Yes: Constipation Renal/: No: Renal Failure, Renal Inusuff, BPH, Cancer, Hematuria, Hemodialysis , Neurogenic Bladder, Renal Calculi, UTI, Other - Past Surgical History Additional Surgical History: Right rotator cuff repair - Alcohol/Substance Use Hx Alcohol Use: No History of Substance Use: reports: None - Smoking History Smoking history: Never smoked Have you smoked in the past 12 months: No - Social History Usual Living Arrangement: With Spouse ADL: Independent Occupation: [employer] History of Recent Travel: No Home Medications - Allergies Allergies/Adverse Reactions: Allergies Allergy/AdvReac Type Severity Reaction Status Date / Time shellfish derived Allergy Verified 10/07/17 20:27 - Home Medications Home Medications: Ambulatory Orders Ibuprofen [Motrin -] 800 mg PO TID PRN #30 tablet 11/18/14 Losartan/Hydrochlorothiazide [Hyzaar 100-25 Tablet] 1 each PO DAILY #14 tablet 11/18/14 Metoprolol Succinate [Toprol XL -] 100 mg PO DAILY #14 tab.sr.24h 11/18/14 Carvedilol [Coreg -] 12.5 mg PO BID #28 tablet 09/18/16 Family Disease History - Family Disease History Family Disease History: CA: Sister ( ovarian cancer in her 30s), Other: Father (CVA, HTN, colon polyps ), Mother (HTN, no polyps on colonoscopy) Other Family History: Uncle with thyroid cancer Review of Systems - Review of Systems Constitutional: reports: Loss of Appetite, Night Sweats, Unintentional Wgt. Loss Neck: reports: No Symptoms Cardiovascular: reports: No Symptoms Respiratory: reports: No Symptoms Gastrointestinal: reports: Abdominal Pain, Constipation, Diarrhea, Nausea. denies: Rectal Bleeding, Vomiting Genitourinary: denies: Burning, Frequency Integumentary: reports: No Symptoms Neurological: reports: No Symptoms Hematology/Lymphatic: reports: No Symptoms Physical Exam Vital Signs: Vital Signs Temperature 98.0 F 10/09/17 06:00 Pulse Rate 60 10/09/17 06:00 Respiratory Rate 18 10/09/17 06:00 Blood Pressure 125/83 10/09/17 06:00 O2 Sat by Pulse Oximetry (%) 99 10/08/17 21:00 Constitutional: Yes: Well Nourished, No Distress, Calm Eyes: Yes: WNL, Conjunctiva Clear, EOM Intact HENT: Yes: Atraumatic, Normocephalic Neck: Yes: Supple, Trachea Midline Cardiovascular: Yes: Regular Rate and Rhythm Respiratory: Yes: Regular Gastrointestinal: Yes: Soft, Abdomen, Obese Extremities: Yes: WNL Edema: No Neurological: Yes: Alert, Oriented Psychiatric: Yes: Alert, Oriented Labs: CBC, BMP 10/09/17 07:00 10/09/17 07:00 Problem List - Problems (1) Anemia due to blood loss, chronic Code(s): D50.0 - IRON DEFICIENCY ANEMIA SECONDARY TO BLOOD LOSS (CHRONIC) (2) Rectal mass Code(s): K62.9 - DISEASE OF ANUS AND RECTUM, UNSPECIFIED (3) Perirectal abscess Code(s): K61.1 - RECTAL ABSCESS (4) Large bowel obstruction Code(s): K56.609 - UNSP INTESTNL OBST, UNSP TO PARTIAL VERSUS COMPLETE OBST (5) Weight loss, non-intentional Code(s): R63.4 - ABNORMAL WEIGHT LOSS Assessment/Plan Highly suspicious for locally advanced Rectal Ca. await pathology /CEA await MRI/COlonoscopy/CT chest for accurate TNM staging discussed with pt in general ( if this is proven to be malignancy), the usual logistics involved with concurrent chemo[facility] consult Genetics referral as an OP. Pt has good social support system will d/w Lianna Stapleton and Matthew d/w .
--- NOTE | 2017-10-09 11:19 | PN ---
Progress Note, Physician - Current Medication List Current Medications: Active Medications Bisacodyl (Dulcolax -) 20 mg PO ONCE ONE Stop: 10/10/17 20:01 Fentanyl (Sublimaze Injection -) 50 mcg IVPUSH [id number] PRN PRN Reason: PAIN Heparin Sodium (Porcine) (Heparin -) 5,000 unit SQ TID AJ Stop: 10/10/17 12:00 Last Admin: 10/09/17 06:25 Dose: 5,000 unit Metronidazole (Flagyl 500mg Premixed Ivpb -) 500 mg in 100 mls @ 100 mls/hr IVPB Q8H-IV AJ Last Admin: 10/09/17 09:39 Dose: 100 mls/hr Sodium Chloride (Normal Saline -) 1,000 mls @ 125 mls/hr IV ASDIR AJ Last Admin: 10/09/17 08:45 Dose: 125 mls/hr Piperacillin Sod/Tazobactam (Sod 3.375 gm/ Dextrose) 100 mls @ 200 mls/hr IVPB Q8H-IV AJ PRN Reason: Protocol Last Admin: 10/09/17 10:55 Dose: 200 mls/hr Morphine Sulfate (Morphine Injection -) 2 mg IVPUSH Q4H PRN PRN Reason: PAIN Last Admin: 10/09/17 08:46 Dose: 2 mg Ondansetron HCl (Zofran Injection) 4 mg IVPUSH Q6H PRN PRN Reason: NAUSEA AND/OR VOMITING Promethazine HCl (Phenergan Injection -) 12.5 mg IVPB Q6H PRN PRN Reason: NAUSEA-FOR RESCUE AFTER 15 MIN - Objective Vital Signs: Vital Signs Temperature 98.0 F 10/09/17 06:00 Pulse Rate 60 10/09/17 06:00 Respiratory Rate 18 10/09/17 06:00 Blood Pressure 125/83 10/09/17 06:00 O2 Sat by Pulse Oximetry (%) 99 10/08/17 21:00 Labs: CBC, BMP 10/09/17 07:00 10/09/17 07:00 INR, PTT INR 1.17 (0.82-1.09) H 10/09/17 07:00 Problem List - Problems (1) Perirectal abscess Code(s): K61.1 - RECTAL ABSCESS (2) Diarrhea Code(s): R19.7 - DIARRHEA, UNSPECIFIED Qualifiers: Qualified Code(s): R19.7 - Diarrhea, unspecified (3) Hypertension Code(s): I10 - ESSENTIAL (PRIMARY) HYPERTENSION Assessment/Plan Surgery: Patient is comfortable. He is informed of the sigmoidiscopy findings , and need to plan definitive treatment after establishing the diagnosis and work up. Abdomen is not distended , soft. A did not have prior to the printrabdominal mass is palapted in left lower abdomen. Patient says he has been having regular bowel movement with solid stools, after the sigmoidoscopy, which he did not have prior to the procedure. He denies having any rectal bleeding. He is scheduled to have colonoscopy tioday , and abdominal CT scan with contrast. discussed with DIANE junior, oncology note noted. Patient appears to be a candidate for primary resection, if positive for suspected malignancy.
--- NOTE | 2017-10-09 12:49 | PN ---
Progress Note, Physician History of Present Illness: Events noted Colonic mass found on exam Diarrhea improved 3 loose BMs earlier today No c/o abdominal pain No fever/ chills Stool studies pending - Current Medication List Current Medications: Active Medications Bisacodyl (Dulcolax -) 20 mg PO ONCE ONE Stop: 10/10/17 20:01 Fentanyl (Sublimaze Injection -) 50 mcg IVPUSH [id number] PRN PRN Reason: PAIN Heparin Sodium (Porcine) (Heparin -) 5,000 unit SQ TID AJ Stop: 10/10/17 12:00 Last Admin: 10/09/17 06:25 Dose: 5,000 unit Metronidazole (Flagyl 500mg Premixed Ivpb -) 500 mg in 100 mls @ 100 mls/hr IVPB Q8H-IV AJ Last Admin: 10/09/17 09:39 Dose: 100 mls/hr Sodium Chloride (Normal Saline -) 1,000 mls @ 125 mls/hr IV ASDIR AJ Last Admin: 10/09/17 08:45 Dose: 125 mls/hr Piperacillin Sod/Tazobactam (Sod 3.375 gm/ Dextrose) 100 mls @ 200 mls/hr IVPB Q8H-IV AJ PRN Reason: Protocol Last Admin: 10/09/17 10:55 Dose: 200 mls/hr Morphine Sulfate (Morphine Injection -) 2 mg IVPUSH Q4H PRN PRN Reason: PAIN Last Admin: 10/09/17 08:46 Dose: 2 mg Ondansetron HCl (Zofran Injection) 4 mg IVPUSH Q6H PRN PRN Reason: NAUSEA AND/OR VOMITING Promethazine HCl (Phenergan Injection -) 12.5 mg IVPB Q6H PRN PRN Reason: NAUSEA-FOR RESCUE AFTER 15 MIN - Objective Vital Signs: Vital Signs Temperature 98.1 F 10/09/17 10:00 Pulse Rate 70 10/09/17 10:00 Respiratory Rate 20 10/09/17 10:00 Blood Pressure 150/78 10/09/17 10:00 O2 Sat by Pulse Oximetry (%) 99 10/08/17 21:00 Constitutional: Yes: No Distress, Thin Cardiovascular: Yes: Regular Rate and Rhythm, S1, S2 Respiratory: Yes: CTA Bilaterally Gastrointestinal: Yes: Normal Bowel Sounds, Soft. No: Tenderness Edema: No Labs: CBC, BMP 10/09/17 07:00 10/09/17 07:00 INR, PTT INR 1.17 (0.82-1.09) H 10/09/17 07:00 Assessment/Plan Probable colonic neoplasm Diarrhea Await stool studies Continue empiric zosyn/flagyl
--- NOTE | 2017-10-09 13:07 | PATH ---
Surgical Pathology Report Patient Name: CAROLYNN FRANZ [facility]. Rec. #: [id number] /Age/Gender: 1970 (Age: 47) / M Account: [id number] Location: [address] [place] [address] Taken: 10/08/2017 Received: 10/08/2017 Reported: 10/09/2017 Physicians: Edith Stapleton M.D. Specimen(s) Received RECTAL MASS Clinical History Preoperative diagnosis: Diarrhea, acute colitis, perianal abscess Postoperative diagnosis: Rectal mass Final Diagnosis RECTUM, MASS, BIOPSY: INVASIVE ADENOCARCINOMA, WELL TO MODERATELY DIFFERENTIATED. Comment: Findings discussed with Dr. Stapleton. Additional studies for Mismatched repair proteins (MMR) are pending and will reported separately as an addendum. Electronically Signed Virginie Borja M.D. Addendum Reported: 10/10/2017 Addendum Diagnosis Immunohistochemical stains for MisMatch Repair Protein Analysis performed at [facility] in [place], [place] ([id number]) and interpreted at [facility] show the following: RESULTS: HMLH-1 INTACT NUCLEAR EXPRESSION HMSH-2 INTACT NUCLEAR EXPRESSION HMSH-6 INTACT NUCLEAR EXPRESSION PMS2 INTACT NUCLEAR EXPRESSION INTERPRETATION: No loss of nuclear expression of MMR proteins: low probability of microsatellite instability-high (MSI-H) Virginie Borja M.D. Gross Description Received in formalin labeled "rectal mass biopsy," is a 1.3 x 1.1 x 0.2 cm aggregate of louis pink soft tissue fragments. The formalin is filtered and the specimen is entirely submitted in one cassette. /10/08/201710/08/2017
[2017-10-10] MEDS: SODIUM CHLORIDE 1,000 ML IV SCH (02:33)
[2017-10-10] MEDS: METRONIDAZOLE 500 MG PREMIXED 500 MG/100 ML MG IVPB SCH ×3 (02:33→18:09)
[2017-10-10] MEDS: PIPERACILLIN/TAZOB 3.375 GM 3.375 GM in DEXTROSE 5%-WATER - 100 ML IVPB SCH ×3 (02:34→18:09)
[2017-10-10] MEDS: HEPARIN NA (PORCINE) 5,000 UNITS/ML 1ML VIAL SQ SCH (05:53)
[2017-10-10 06:06] LABS: CARCINOEMBRYONIC ANTIGEN 98.9 ng/mL (0.0-4.7)
[2017-10-10] MEDS ORDERED: PEG3350/SOD SULF,BICARB,CL/KCL 4,000 ML SOLN.RECON PO ONE (09:00)
--- NOTE | 2017-10-10 09:54 | PN ---
Progress Note (short form) - Note Progress Note: Patient seen and examined. all follow-ups noted Schedule for colonoscopy tomorrow I had discussed case with Dr. Stapleton yesterday again--biopsy shows adenocarcinoma Patient tentatively scheduled for surgery on Saturday Discussed with patient patient aware and In agreement Denies pain Denies chest pain or shortness breath or abdominal pain Being prepped for colonoscopy Vital Signs Temp 99.3 F 10/10/17 06:00 Pulse 63 10/10/17 06:00 Resp 18 10/10/17 06:00 BP 137/81 10/10/17 06:00 Pulse Ox 99 10/09/17 21:00 Intake & Output 10/09/17 10/09/17 10/10/17 11:59 23:59 11:59 Intake Total 1999 2600 1650 Balance 1999 2600 1650 Intake: IV 1250 1000 1250 Normal Saline - 1,000 ml 1250 1000 1250 @ 125 mls/hr IV ASDIR [facility] Rx#:[id number] IVPB 300 200 200 Oral 450 1400 200 Other: Voiding Method Toilet # Unmeasured Voids Void 3 2 2 Bowel Movement Yes Yes # Bowel Movements 6 2 Active Medications Bisacodyl (Dulcolax -) 20 mg PO ONCE ONE Stop: 10/10/17 20:01 Fentanyl (Sublimaze Injection -) 50 mcg IVPUSH [id number] PRN PRN Reason: PAIN Heparin Sodium (Porcine) (Heparin -) 5,000 unit SQ TID [facility] Stop: 10/10/17 12:00 Last Admin: 10/10/17 05:53 Dose: 5,000 unit Metronidazole (Flagyl 500mg Premixed Ivpb -) 500 mg in 100 mls @ 100 mls/hr IVPB Q8H-IV [facility] Last Admin: 10/10/17 02:33 Dose: 100 mls/hr Sodium Chloride (Normal Saline -) 1,000 mls @ 125 mls/hr IV ASDIR [facility] Last Admin: 10/10/17 02:33 Dose: 125 mls/hr Piperacillin Sod/Tazobactam (Sod 3.375 gm/ Dextrose) 100 mls @ 200 mls/hr IVPB Q8H-IV AJ PRN Reason: Protocol Last Admin: 10/10/17 02:34 Dose: 200 mls/hr Morphine Sulfate (Morphine Injection -) 2 mg IVPUSH Q4H PRN PRN Reason: PAIN Last Admin: 10/09/17 08:46 Dose: 2 mg Ondansetron HCl (Zofran Injection) 4 mg IVPUSH Q6H PRN PRN Reason: NAUSEA AND/OR VOMITING Promethazine HCl (Phenergan Injection -) 12.5 mg IVPB Q6H PRN PRN Reason: NAUSEA-FOR RESCUE AFTER 15 MIN CBC, BMP 10/09/17 07:00 10/09/17 07:00 CT chest--- metastases ?. Physical Exam Constitutional: Yes: Well Nourished, No Distress, Calm/ Comfortable Eyes: Yes: WNL, Conjunctiva Clear, EOM Intact HENT: Yes: Atraumatic, Normocephalic Neck: Yes: Supple, Trachea Midline/ no lymphadenopathy Cardiovascular: Yes: Regular Rate and Rhythm Respiratory: Yes: clear to auscultation Gastrointestinal: Yes: Soft, Abdomen, Extremities: Yes: WNL Edema: No Neurological: Yes: Alert, Oriented Psychiatric: Yes: Alert, Oriented Assessment/Plan rectal sigmoidal mass--adenocarcinoma metastases to lungs ? colonoscopy has been scheduled for October 11 continue present care Will follow. Problem List - Problems (1) Anemia due to blood loss, chronic Code(s): D50.0 - IRON DEFICIENCY ANEMIA SECONDARY TO BLOOD LOSS (CHRONIC) (2) Bladder wall thickening Code(s): N32.89 - OTHER SPECIFIED DISORDERS OF BLADDER (3) Hypertension Code(s): I10 - ESSENTIAL (PRIMARY) HYPERTENSION (4) Large bowel obstruction Code(s): K56.609 - UNSP INTESTNL OBST, UNSP TO PARTIAL VERSUS COMPLETE OBST (5) Rectal mass Code(s): K62.9 - DISEASE OF ANUS AND RECTUM, UNSPECIFIED (6) Weight loss, non-intentional Code(s): R63.4 - ABNORMAL WEIGHT LOSS
[2017-10-10] MEDS ORDERED: PT OWN MED DRAWER 7, Y5N ONE ×2 (11:56→18:05)
[2017-10-10] MEDS: CARVEDILOL 12.5 MG TABLET (FP) PO SCH ×2 (12:54→22:43)
--- NOTE | 2017-10-10 13:11 | CON.PULM ---
Consult Consult Specialty:: PULMONARY Referred by:: Dr. Iraheta Reason for Consultation:: lung nodules - History of Present Illness Chief Complaint: abdominal pain History of Present Illness: 47yo male with h/o HTN who was admitted with diarrhea and abdominal pain. Initially thought to be a liss-rectal abscess on CT A/P but found to have a rectal mass during sigmoidoscopy s/p biopsy showing preliminary adenoca. During staging work up, found to have a few subcentimeter lung nodules. Scheduled for colonoscopy tomorrow. Denies shortness of breath, reports occasional nonproductive cough. No fevers but with subjective chills and unintentional weight loss with loss of appetite. Sister passed from ovarian cancer. No history of lung cancers. He is a non cigarette smoker. Works in [employer]. 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: CVA (with dizziness and LLE paresis about 1 year ago which resolved at [facility]) Cardio/Vascular: Yes: HTN, Hyperlipdemia Gastrointestinal: Yes: Constipation - Past Surgical History Additional Surgical History: Right rotator cuff repair - Alcohol/Substance Use Hx Alcohol Use: No History of Substance Use: reports: None - Smoking History Smoking history: Never smoked Have you smoked in the past 12 months: No - Social History Usual Living Arrangement: With Spouse ADL: Independent 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 History of Recent Travel: No Home Medications - Allergies Allergies/Adverse Reactions: Allergies Allergy/AdvReac Type Severity Reaction Status Date / Time shellfish derived Allergy Verified 10/07/17 20:27 - Home Medications Home Medications: Ambulatory Orders Ibuprofen [Motrin -] 800 mg PO TID PRN #30 tablet 11/18/14 Losartan/Hydrochlorothiazide [Hyzaar 100-25 Tablet] 1 each PO DAILY #14 tablet 11/18/14 Metoprolol Succinate [Toprol XL -] 100 mg PO DAILY #14 tab.sr.24h 11/18/14 Carvedilol [Coreg -] 12.5 mg PO BID #28 tablet 09/18/16 Family Disease History - Family Disease History Family Disease History: CA: Sister ( ovarian cancer in her 30s), Other: Father (CVA, HTN, colon polyps ), Mother (HTN, no polyps on colonoscopy) Other Family History: Uncle with thyroid cancer Review of Systems - Review of Systems Constitutional: reports: Chills, Unintentional Wgt. Loss. denies: Fever Eyes: denies: Recent Change in Vision HENT: denies: Nasal Congestion, Throat Pain Neck: denies: Stiffness, Tenderness Cardiovascular: denies: Chest Pain, Palpitations, Shortness of Breath Respiratory: reports: Cough. denies: Hemoptysis, SOB on Exertion, Wheezing Gastrointestinal: reports: Abdominal Pain, Diarrhea. denies: Nausea, Vomiting Genitourinary: denies: Dysuria, Hematuria Neurological: denies: Dizziness, Headache Endocrine: reports: Unexplained Weight Loss. denies: Unexplained Weight Gain Physical Exam Vital Sings: Vital Signs Temperature 99.3 F 10/10/17 06:00 Pulse Rate 63 10/10/17 06:00 Respiratory Rate 10/10/17 06:00 Blood Pressure 137/81 10/10/17 06:00 O2 Sat by Pulse Oximetry (%) 99 10/09/17 21:00 Constitutional: Yes: Calm Eyes: Yes: Conjunctiva Clear, EOM Intact HENT: Yes: Atraumatic, Normocephalic Neck: Yes: Supple, Trachea Midline Cardiovascular: Yes: Regular Rate and Rhythm Respiratory: Yes: Regular, CTA Bilaterally ...Clubbing: No Gastrointestinal: Yes: Normal Bowel Sounds, Soft. No: Tenderness Edema: No Neurological: Yes: Alert, Oriented Labs: CBC, BMP 10/09/17 07:00 10/09/17 07:00 Imaging - Results Cat Scan: Report Reviewed, Image Reviewed (multiple lung nodules, largest RUL 8x6mm) Problem List - Problems (1) Rectal mass Code(s): K62.9 - DISEASE OF ANUS AND RECTUM, UNSPECIFIED (2) Hypertension Code(s): I10 - ESSENTIAL (PRIMARY) HYPERTENSION (3) Lung nodules Code(s): R91.8 - OTHER NONSPECIFIC ABNORMAL FINDING OF LUNG FIELD Assessment/Plan Newly Diagnosed Rectal Ca Lung Nodules suspicious for metastatic disease HTN - will need tissue biopsy of lung nodule to determine stage of rectal ca - will discuss with IR if nodule is accessible via needle biopsy - if not attainable via needle biopsy, will need VATS/wedge for tissue diagnosis - for colonoscopy and subsequent surgery - DVT prophylaxis Thank you for this consult Attila Lara MD
--- NOTE | 2017-10-10 13:13 | PN ---
Progress Note (short form) - Note Progress Note: Seen and examined being prepped for colonoscopy. Reviewed the results of CT c/a/p. d/w and Constitutional: Yes: Well Nourished, No Distress, Calm Eyes: Yes: WNL, Conjunctiva Clear, EOM Intact HENT: Yes: Atraumatic, Normocephalic Neck: Yes: Supple, Trachea Midline Cardiovascular: Yes: Regular Rate and Rhythm Respiratory: Yes: Regular Gastrointestinal: Yes: Soft, Abdomen, Obese Extremities: Yes: WNL Edema: No Neurological: Yes: Alert, Oriented Psychiatric: Yes: Alert, Oriented Temp Pulse Resp BP Pulse Ox 99.3 F 63 18 137/81 99 10/10/17 06:00 10/10/17 06:00 10/10/17 06:00 10/10/17 06:00 10/09/17 21:00 CBC, BMP 10/09/17 07:00 10/09/17 07:00 Current Medications Generic Name Dose Route Start Last Admin Trade Name Freq PRN Reason Stop Dose Admin Bisacodyl 20 mg 10/10/17 20:00 Dulcolax - PO 10/10/17 20:01 ONCE ONE Carvedilol 12.5 mg 10/10/17 13:00 10/10/17 12:54 Coreg - PO 12.5 mg BID AJ Administration Fentanyl 50 mcg 10/08/17 12:52 Sublimaze Injection - IVPUSH [id number] PRN PAIN HCTZ/Losartan Potassium 2 tab 10/10/17 13:00 Hyzaar - PO DAILY AJ Metronidazole 500 mg in 100 mls @ 100 mls/hr 10/08/17 02:00 10/10/17 12:16 Flagyl 500mg Premixed Ivpb - IVPB 100 mls/hr Q8H-IV AJ Administration Piperacillin Sod/Tazobactam 100 mls @ 200 mls/hr 10/08/17 18:00 10/10/17 02: 34 Sod 3.375 gm/ Dextrose IVPB 200 mls/hr Q8H-IV AJ Administration Protocol Morphine Sulfate 2 mg 10/08/17 01:54 10/09/17 08:46 Morphine Injection - IVPUSH 2 mg Q4H PRN Administration PAIN Ondansetron HCl 4 mg 10/08/17 12:52 Zofran Injection IVPUSH Q6H PRN NAUSEA AND/OR VOMITING Promethazine HCl 12.5 mg 10/08/17 12:52 Phenergan Injection - IVPB Q6H PRN NAUSEA-FOR RESCUE AFTER 15 MIN Suspicious for metastatic CRC. possible liver/lung appreciate Pulm input, for US liver, most likely will need liver biopsy will d/ w IR too CT noted for obstructive mass Await colonoscopy , 's note appreciated, treatment priority pending scope. Problem List - Problems (1) Anemia due to blood loss, chronic Code(s): D50.0 - IRON DEFICIENCY ANEMIA SECONDARY TO BLOOD LOSS (CHRONIC) (2) Rectal mass Code(s): K62.9 - DISEASE OF ANUS AND RECTUM, UNSPECIFIED (3) Perirectal abscess Code(s): K61.1 - RECTAL ABSCESS (4) Large bowel obstruction Code(s): K56.609 - UNSP INTESTNL OBST, UNSP TO PARTIAL VERSUS COMPLETE OBST (5) Weight loss, non-intentional Code(s): R63.4 - ABNORMAL WEIGHT LOSS
[2017-10-10] MEDS: LOSARTAN 50MG/HCTZ 12.5MG 1 TAB (FP) PO SCH (14:17)
--- NOTE | 2017-10-10 16:12 | PN ---
Progress Note, Physician Chief Complaint: Patient is comfortable. Preperation for colonoscopy in progress. Ct abdomen and chest report noted. Bilateral pulmonary , and bilobar liver lesions noted. Ct also suggests, obstructing lesion in the colon. Patient is made aware. CEA is 98.9. Will plan treatment priority after colonoscopy tomorrow. - Current Medication List Current Medications: Active Medications Bisacodyl (Dulcolax -) 20 mg PO ONCE ONE Stop: 10/10/17 20:01 Carvedilol (Coreg -) 12.5 mg PO BID [facility] Last Admin: 10/10/17 12:54 Dose: 12.5 mg Fentanyl (Sublimaze Injection -) 50 mcg IVPUSH [id number] PRN PRN Reason: PAIN HCTZ/Losartan Potassium (Hyzaar -) 2 tab PO DAILY [facility] Last Admin: 10/10/17 14:17 Dose: 2 tab Metronidazole (Flagyl 500mg Premixed Ivpb -) 500 mg in 100 mls @ 100 mls/hr IVPB Q8H-IV [facility] Last Admin: 10/10/17 12:16 Dose: 100 mls/hr Piperacillin Sod/Tazobactam (Sod 3.375 gm/ Dextrose) 100 mls @ 200 mls/hr IVPB Q8H-IV AJ PRN Reason: Protocol Last Admin: 10/10/17 14:17 Dose: 200 mls/hr Morphine Sulfate (Morphine Injection -) 2 mg IVPUSH Q4H PRN PRN Reason: PAIN Last Admin: 10/09/17 08:46 Dose: 2 mg Ondansetron HCl (Zofran Injection) 4 mg IVPUSH Q6H PRN PRN Reason: NAUSEA AND/OR VOMITING Promethazine HCl (Phenergan Injection -) 12.5 mg IVPB Q6H PRN PRN Reason: NAUSEA-FOR RESCUE AFTER 15 MIN - Objective Vital Signs: Vital Signs Temperature 99.3 F 10/10/17 15:30 Pulse Rate 83 10/10/17 15:30 Respiratory Rate 19 10/10/17 15:30 Blood Pressure 137/103 10/10/17 15:30 O2 Sat by Pulse Oximetry (%) 99 10/09/17 21:00 Labs: CBC, BMP 10/09/17 07:00 10/09/17 07:00 INR, PTT INR 1.17 (0.82-1.09) H 10/09/17 07:00 Problem List - Problems (1) Perirectal abscess Code(s): K61.1 - RECTAL ABSCESS (2) Diarrhea Code(s): R19.7 - DIARRHEA, UNSPECIFIED Qualifiers: Diarrhea type: unspecified type Qualified Code(s): R19.7 - Diarrhea, unspecified (3) Hypertension Code(s): I10 - ESSENTIAL (PRIMARY) HYPERTENSION
[2017-10-10] MEDS ORDERED: BISACODYL 5 MG TABLET.DR (FP) PO ONE ×2 (20:00→22:30)
[2017-10-11] MEDS: PIPERACILLIN/TAZOB 3.375 GM 3.375 GM in DEXTROSE 5%-WATER - 100 ML IVPB SCH ×2 (02:54→09:27)
[2017-10-11] MEDS: METRONIDAZOLE 500 MG PREMIXED 500 MG/100 ML MG IVPB SCH ×2 (02:54→09:27)
[2017-10-11] MEDS ORDERED: PT OWN MED DRAWER 7, Y5N ONE (09:35)
[2017-10-11] MEDS: CARVEDILOL 12.5 MG TABLET (FP) PO SCH (09:39)
[2017-10-11] MEDS: LOSARTAN 50MG/HCTZ 12.5MG 1 TAB (FP) PO SCH (09:39)
--- NOTE | 2017-10-11 10:33 | PN ---
Progress Note (short form) - Note Progress Note: comfortable no complains for colonoscopy today Vital Signs Temp 98.3 F 10/11/17 06:00 Pulse 67 10/11/17 06:00 Resp 18 10/11/17 06:00 BP 134/94 10/11/17 06:00 Pulse Ox 99 10/10/17 21:00 Intake & Output 10/10/17 10/10/17 10/11/17 11:59 23:59 11:59 Intake Total 1650 800 200 Balance 1650 800 200 Intake: IV 1250 Normal Saline - 1,000 ml 1250 @ 125 mls/hr IV ASDIR ON LICENSE OF [facility] Rx#:[id number] IVPB 200 200 Oral 200 800 Other: Voiding Method Toilet Toilet # Unmeasured Voids Void 2 2 3 Active Medications Carvedilol (Coreg -) 12.5 mg PO BID ON [facility] OF [facility] Last Admin: 10/11/17 09:39 Dose: 12.5 mg Fentanyl (Sublimaze Injection -) 50 mcg IVPUSH [id number] PRN PRN Reason: PAIN HCTZ/Losartan Potassium (Hyzaar -) 2 tab PO DAILY [facility] OF [facility] Last Admin: 10/11/17 09:39 Dose: 2 tab Metronidazole (Flagyl 500mg Premixed Ivpb -) 500 mg in 100 mls @ 100 mls/hr IVPB Q8H-IV [facility] OF [facility] Last Admin: 10/11/17 09:27 Dose: 100 mls/hr Piperacillin Sod/Tazobactam (Sod 3.375 gm/ Dextrose) 100 mls @ 200 mls/hr IVPB Q8H-IV ON LICENSE OF [facility] PRN Reason: Protocol Last Admin: 10/11/17 09:27 Dose: 200 mls/hr Ondansetron HCl (Zofran Injection) 4 mg IVPUSH Q6H PRN PRN Reason: NAUSEA AND/OR VOMITING Promethazine HCl (Phenergan Injection -) 12.5 mg IVPB Q6H PRN PRN Reason: NAUSEA-FOR RESCUE AFTER 15 MIN CBC, BMP 10/09/17 07:00 10/09/17 07:00 Physical Exam Constitutional: Yes: Well Nourished, No Distress, Calm/ Comfortable Eyes: Yes: WNL, Conjunctiva Clear, EOM Intact HENT: Yes: Atraumatic, Normocephalic Neck: Yes: Supple, Trachea Midline/ no lymphadenopathy Cardiovascular: Yes: Regular Rate and Rhythm Respiratory: Yes: clear to auscultation Gastrointestinal: Yes: Soft, Abdomen, Extremities: Yes: WNL Edema: No Neurological: Yes: Alert, Oriented Psychiatric: Yes: Alert, Oriented Assessment/Plan 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 liver biopsy ? colonoscopy continue present care discussed with pt monitor bp Will follow. Problem List - Problems (1) Anemia due to blood loss, chronic Code(s): D50.0 - IRON DEFICIENCY ANEMIA SECONDARY TO BLOOD LOSS (CHRONIC) (2) Bladder wall thickening Code(s): N32.89 - OTHER SPECIFIED DISORDERS OF BLADDER (3) Hypertension Code(s): I10 - ESSENTIAL (PRIMARY) HYPERTENSION (4) Large bowel obstruction Code(s): K56.609 - UNSP INTESTNL OBST, UNSP TO PARTIAL VERSUS COMPLETE OBST (5) Rectal mass Code(s): K62.9 - DISEASE OF ANUS AND RECTUM, UNSPECIFIED (6) Weight loss, non-intentional Code(s): R63.4 - ABNORMAL WEIGHT LOSS
--- NOTE | 2017-10-11 11:58 | PN ---
Progress Note (short form) - Note Progress Note: Seen and examined awaiting to go to colonoscopy. Constitutional: Yes: Well Nourished, No Distress, Calm Eyes: Yes: WNL, Conjunctiva Clear, EOM Intact HENT: Yes: Atraumatic, Normocephalic Neck: Yes: Supple, Trachea Midline Cardiovascular: Yes: Regular Rate and Rhythm Respiratory: Yes: Regular Gastrointestinal: Yes: Soft, Abdomen, Obese Extremities: Yes: WNL Edema: No Neurological: Yes: Alert, Oriented Psychiatric: Yes: Alert, Oriented Last Vital Signs Temp Pulse Resp BP Pulse Ox 98.3 F 67 18 134/94 99 10/11/17 06:00 10/11/17 06:00 10/11/17 06:00 10/11/17 06:00 10/10/17 21:00 CBC, BMP 10/09/17 07:00 10/09/17 07:00 Current Medications Generic Name Dose Route Start Last Admin Trade Name Freq PRN Reason Stop Dose Admin Carvedilol 12.5 mg 10/10/17 13:00 10/11/17 09:39 Coreg - PO 12.5 mg BID AJ Administration Fentanyl 50 mcg 10/08/17 12:52 Sublimaze Injection - IVPUSH [id number] PRN PAIN HCTZ/Losartan Potassium 2 tab 10/10/17 13:00 10/11/17 09:39 Hyzaar - PO 2 tab DAILY AJ Administration Metronidazole 500 mg in 100 mls @ 100 mls/hr 10/08/17 02:00 10/11/17 09:27 Flagyl 500mg Premixed Ivpb - IVPB 100 mls/hr Q8H-IV AJ Administration Piperacillin Sod/Tazobactam 100 mls @ 200 mls/hr 10/08/17 18:00 10/11/17 09: 27 Sod 3.375 gm/ Dextrose IVPB 200 mls/hr Q8H-IV AJ Administration Protocol Ondansetron HCl 4 mg 10/08/17 12:52 Zofran Injection IVPUSH Q6H PRN NAUSEA AND/OR VOMITING Promethazine HCl 12.5 mg 10/08/17 12:52 Phenergan Injection - IVPB Q6H PRN NAUSEA-FOR RESCUE AFTER 15 MIN suspicious for mCRC -treatment priority depending on the obstructive nature of the mass. Await colonoscopy -would eventually need Liver biopsy. -d/w pt. Problem List - Problems (1) Anemia due to blood loss, chronic Code(s): D50.0 - IRON DEFICIENCY ANEMIA SECONDARY TO BLOOD LOSS (CHRONIC) (2) Rectal mass Code(s): K62.9 - DISEASE OF ANUS AND RECTUM, UNSPECIFIED (3) Perirectal abscess Code(s): K61.1 - RECTAL ABSCESS (4) Large bowel obstruction Code(s): K56.609 - UNSP INTESTNL OBST, UNSP TO PARTIAL VERSUS COMPLETE OBST (5) Weight loss, non-intentional Code(s): R63.4 - ABNORMAL WEIGHT LOSS
--- NOTE | 2017-10-11 14:20 | PN ---
Progress Note (short form) - Note Progress Note: GI Procedure NOte: Please see scanned colonoscopy report. A 5cm length near totally obstructing rectal cancer was found with stercoral ulcerations proximal to the tumor. The ulcers and the tumor were biopsied. The distal margins of the tumor were tattooed. Two polyps were removed from the cecum and distal right colon. The findings were discussed with [place]. I also informed him that it appears that he has liver metastases which will likely need to be biopsied for confirmation. Problem List - Problems (1) Rectal mass Code(s): K62.9 - DISEASE OF ANUS AND RECTUM, UNSPECIFIED (2) Weight loss, non-intentional Code(s): R63.4 - ABNORMAL WEIGHT LOSS (3) Narrowing of stools Code(s): R19.5 - OTHER FECAL ABNORMALITIES (4) CVA (cerebral vascular accident) Code(s): I63.9 - CEREBRAL INFARCTION, UNSPECIFIED (5) Large bowel obstruction Code(s): K56.609 - UNSP INTESTNL OBST, UNSP TO PARTIAL VERSUS COMPLETE OBST (6) Anemia due to blood loss, chronic Code(s): D50.0 - IRON DEFICIENCY ANEMIA SECONDARY TO BLOOD LOSS (CHRONIC)
--- NOTE | 2017-10-11 14:23 | PN ---
Progress Note, Physician History of Present Illness: Colonoscopy performed today Obstructing colon lesion found No fever/ chills WBC down Stool c/s Pseudomonas (likely colonizer/ contaminant) - Current Medication List Current Medications: Active Medications Carvedilol (Coreg -) 12.5 mg PO BID [facility] Last Admin: 10/11/17 09:39 Dose: 12.5 mg Fentanyl (Sublimaze Injection -) 50 mcg IVPUSH [id number] PRN PRN Reason: PAIN HCTZ/Losartan Potassium (Hyzaar -) 2 tab PO DAILY [facility] Last Admin: 10/11/17 09:39 Dose: 2 tab Metronidazole (Flagyl 500mg Premixed Ivpb -) 500 mg in 100 mls @ 100 mls/hr IVPB Q8H-IV [facility] Last Admin: 10/11/17 09:27 Dose: 100 mls/hr Piperacillin Sod/Tazobactam (Sod 3.375 gm/ Dextrose) 100 mls @ 200 mls/hr IVPB Q8H-IV [facility] PRN Reason: Protocol Last Admin: 10/11/17 09:27 Dose: 200 mls/hr Ondansetron HCl (Zofran Injection) 4 mg IVPUSH Q6H PRN PRN Reason: NAUSEA AND/OR VOMITING Promethazine HCl (Phenergan Injection -) 12.5 mg IVPB Q6H PRN PRN Reason: NAUSEA-FOR RESCUE AFTER 15 MIN - Objective Vital Signs: Vital Signs Temperature 98.1 F 10/11/17 13:31 Pulse Rate 60 10/11/17 14:00 Respiratory Rate 20 10/11/17 14:00 Blood Pressure 141/94 10/11/17 14:00 O2 Sat by Pulse Oximetry (%) 98 10/11/17 14:00 Constitutional: Yes: No Distress Eyes: Yes: Conjunctiva Clear Cardiovascular: Yes: Regular Rate and Rhythm, S1, S2 Respiratory: Yes: CTA Bilaterally Gastrointestinal: Yes: Normal Bowel Sounds, Soft. No: Tenderness Edema: No Labs: CBC, BMP 10/09/17 07:00 10/09/17 07:00 INR, PTT INR 1.17 (0.82-1.09) H 10/09/17 07:00 Assessment/Plan colonic neoplasm S/P diarrheal illness D/C antibiotics,observe off
--- NOTE | 2017-10-11 15:54 | PN ---
Progress Note (short form) - Note Progress Note: PULMONARY APPEARS STABLE OFFERS NO RESPIRATORY COMPLAINTS RECTAL MASS BIOPSIED PATH PENDING LIVER METS MULTIPLE BILATERAL SUBCENTIMETER LUNG NODULES WHICH MAY OR MAY NOT BE METASTATIC IN NATURE DUE TO SMALL SIZE NEEDLE BIOPSY WOULD BE CHALLENGING WILL FOLLOW Adonay SEGUNDO MD
--- NOTE | 2017-10-11 17:50 | PN ---
Progress Note, Physician - Current Medication List Current Medications: Active Medications Carvedilol (Coreg -) 12.5 mg PO BID [facility] Last Admin: 10/11/17 09:39 Dose: 12.5 mg Fentanyl (Sublimaze Injection -) 50 mcg IVPUSH [id number] PRN PRN Reason: PAIN HCTZ/Losartan Potassium (Hyzaar -) 2 tab PO DAILY [facility] Last Admin: 10/11/17 09:39 Dose: 2 tab Ondansetron HCl (Zofran Injection) 4 mg IVPUSH Q6H PRN PRN Reason: NAUSEA AND/OR VOMITING Promethazine HCl (Phenergan Injection -) 12.5 mg IVPB Q6H PRN PRN Reason: NAUSEA-FOR RESCUE AFTER 15 MIN - Objective Vital Signs: Vital Signs Temperature 97.9 F 10/11/17 15:26 Pulse Rate 58 L 10/11/17 14:21 Respiratory Rate 20 10/11/17 14:21 Blood Pressure 151/89 10/11/17 14:21 O2 Sat by Pulse Oximetry (%) 99 10/11/17 14:21 Labs: CBC, BMP 10/09/17 07:00 10/09/17 07:00 INR, PTT INR 1.17 (0.82-1.09) H 10/09/17 07:00 Problem List - Problems (1) Perirectal abscess Code(s): K61.1 - RECTAL ABSCESS (2) Diarrhea Code(s): R19.7 - DIARRHEA, UNSPECIFIED Qualifiers: Diarrhea type: unspecified type Qualified Code(s): R19.7 - Diarrhea, unspecified (3) Hypertension Code(s): I10 - ESSENTIAL (PRIMARY) HYPERTENSION Assessment/Plan Surgery : Patient with obstructing tumor of rectosigmoid colon, wit ? liver metastasis, and ? lung nodules. In view of obstructing lesion will resect the primary and do a low anterior resection of the rectal tumor, with postoperative chemotherapy . Patient will have cystoscopy prior to laparotomy.. Patient and his family have been informed, discussed with Dr. unger.
[2017-10-12] MEDS: CARVEDILOL 12.5 MG TABLET (FP) PO SCH ×3 (00:22→21:56)
[2017-10-12 07:28] LABS: BASO % 0.6 % (0-2.0); EOS % 1.2 % (0-4.5); LYMPH % 15.4 % (8-40); MCH 26.8 pg (25.7-33.7); MCHC 33.3 g/dl (32.0-35.9); MEAN CELL VOLUME 80.5 fl (80-96); MEAN PLT VOLUME 8.3 fl (7.5-11.1); MONO % 7.8 % (3.8-10.2); PLATELET COUNT 339 K/MM3 (134-434); RBC 4.47 M/mm3 (4.00-5.60); RDW 15.7 % (11.9-15.9); WHITE BLOOD COUNT 9.5 K/mm3 (4.0-10.0)
[2017-10-12 07:49] LABS: ALBUMIN 2.1 g/dl (3.4-5.0); ANION GAP 11 (8-16); BLOOD UREA NITROGEN 8 mg/dL (7-18); CALCIUM 7.5 mg/dL (8.5-10.1); CHLORIDE 99 mmol/L (98-107); CO2 25 mmol/L (21-32); GLUCOSE,RANDOM 64 mg/dL (74-106); POTASSIUM 3.5 mmol/L (3.5-5.1); SGPT/ALT 33 U/L (12-78); SODIUM 135 mmol/L (136-145)
[2017-10-12 07:52] LABS: ALK PHOS 170 U/L (45-117); BILIRUBIN,TOTAL 0.8 mg/dL (0.2-1.0); CREATININE 0.7 mg/dL (0.7-1.3); SGOT/AST 41 U/L (15-37); TOT PROT 5.3 g/dl (6.4-8.2)
[2017-10-12] MEDS ORDERED: PT OWN MED DRAWER 7, Y5N ONE (10:39)
[2017-10-12] MEDS: LOSARTAN 50MG/HCTZ 12.5MG 1 TAB (FP) PO SCH (10:46)
--- NOTE | 2017-10-12 13:04 | PN ---
Progress Note (short form) - Note Progress Note: Seen and examined s/p colonoscopy with obstructing lesion Hence surgery before chemotherapy Vital Signs Period Temp Pulse Resp BP Sys/Bal Pulse Ox Last 24 Hr 97.5 F-99.0 F 58-80 16-20 122-151/85-96 98-100 Vital Signs Period Temp Pulse Resp BP Sys/Bal Pulse Ox Last 24 Hr 97.5 F-99.0 F 58-80 16-20 122-151/85-96 98-100 Active Medications Generic Name Dose Route Start Last Admin Trade Name Freq PRN Reason Stop Dose Admin Carvedilol 12.5 mg 10/10/17 13:00 10/12/17 10:46 Coreg - PO 12.5 mg BID AJ Administration Fentanyl 50 mcg 10/08/17 12:52 Sublimaze Injection - IVPUSH [id number] PRN PAIN HCTZ/Losartan Potassium 2 tab 10/10/17 13:00 10/12/17 10:46 Hyzaar - PO 2 tab DAILY AJ Administration Ondansetron HCl 4 mg 10/08/17 12:52 Zofran Injection IVPUSH Q6H PRN NAUSEA AND/OR VOMITING Promethazine HCl 12.5 mg 10/08/17 12:52 Phenergan Injection - IVPB Q6H PRN NAUSEA-FOR RESCUE AFTER 15 MIN CBC, BMP 10/12/17 07:00 10/12/17 07:00 suspicious for mCRC -surgery to releive obstructive lesion -would eventually need Liver biopsy. -d/w pt. Problem List - Problems (1) Anemia due to blood loss, chronic Code(s): D50.0 - IRON DEFICIENCY ANEMIA SECONDARY TO BLOOD LOSS (CHRONIC) (2) Rectal mass Code(s): K62.9 - DISEASE OF ANUS AND RECTUM, UNSPECIFIED (3) Perirectal abscess Code(s): K61.1 - RECTAL ABSCESS (4) Large bowel obstruction Code(s): K56.609 - UNSP INTESTNL OBST, UNSP TO PARTIAL VERSUS COMPLETE OBST (5) Weight loss, non-intentional Code(s): R63.4 - ABNORMAL WEIGHT LOSS
--- NOTE | 2017-10-12 14:35 | PN ---
Progress Note (short form) - Note Progress Note: pt seen/ examined. comfortable at bedside no complains Vital Signs Temp 98.6 F 10/12/17 11:00 Pulse 69 10/12/17 11:00 Resp 18 10/12/17 11:00 BP 130/85 10/12/17 11:00 Pulse Ox 99 10/11/17 14:21 Intake & Output 10/11/17 10/12/17 10/12/17 23:59 11:59 23:59 Intake Total 1000 Balance 1000 Intake: IV 800 IVPB 200 Other: Voiding Method Toilet Toilet # Unmeasured Voids Void 2 1 Active Medications Carvedilol (Coreg -) 12.5 mg PO BID [facility] Last Admin: 10/12/17 10:46 Dose: 12.5 mg Fentanyl (Sublimaze Injection -) 50 mcg IVPUSH [id number] PRN PRN Reason: PAIN HCTZ/Losartan Potassium (Hyzaar -) 2 tab PO DAILY [facility] Last Admin: 10/12/17 10:46 Dose: 2 tab Ondansetron HCl (Zofran Injection) 4 mg IVPUSH Q6H PRN PRN Reason: NAUSEA AND/OR VOMITING Promethazine HCl (Phenergan Injection -) 12.5 mg IVPB Q6H PRN PRN Reason: NAUSEA-FOR RESCUE AFTER 15 MIN CBC, BMP 10/12/17 07:00 10/12/17 07:00 Physical Exam Constitutional: Yes: Well Nourished, No Distress, Calm/ Comfortable Eyes: Yes: WNL, Conjunctiva Clear, EOM Intact HENT: Yes: Atraumatic, Normocephalic Neck: Yes: Supple, Trachea Midline/ no lymphadenopathy Cardiovascular: Yes: Regular Rate and Rhythm Respiratory: Yes: clear to auscultation Gastrointestinal: Yes: Soft, Abdomen, Extremities: Yes: WNL Edema: No Neurological: Yes: Alert, Oriented Psychiatric: Yes: Alert, Oriented Assessment/Plan 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 colonoscopy findings noted discussed with Dr. Stapleton again today for or on moday - cysto/ surgery and possible liver biopsy discussed with pt/ . will follow. Problem List - Problems (1) Anemia due to blood loss, chronic Code(s): D50.0 - IRON DEFICIENCY ANEMIA SECONDARY TO BLOOD LOSS (CHRONIC) (2) Bladder wall thickening Code(s): N32.89 - OTHER SPECIFIED DISORDERS OF BLADDER (3) Hypertension Code(s): I10 - ESSENTIAL (PRIMARY) HYPERTENSION (4) Large bowel obstruction Code(s): K56.609 - UNSP INTESTNL OBST, UNSP TO PARTIAL VERSUS COMPLETE OBST (5) Rectal mass Code(s): K62.9 - DISEASE OF ANUS AND RECTUM, UNSPECIFIED (6) Weight loss, non-intentional Code(s): R63.4 - ABNORMAL WEIGHT LOSS
--- NOTE | 2017-10-12 14:48 | PN ---
Progress Note, Physician - Current Medication List Current Medications: Active Medications Carvedilol (Coreg -) 12.5 mg PO BID [facility] Last Admin: 10/12/17 10:46 Dose: 12.5 mg Fentanyl (Sublimaze Injection -) 50 mcg IVPUSH [id number] PRN PRN Reason: PAIN HCTZ/Losartan Potassium (Hyzaar -) 2 tab PO DAILY [facility] Last Admin: 10/12/17 10:46 Dose: 2 tab Ondansetron HCl (Zofran Injection) 4 mg IVPUSH Q6H PRN PRN Reason: NAUSEA AND/OR VOMITING Promethazine HCl (Phenergan Injection -) 12.5 mg IVPB Q6H PRN PRN Reason: NAUSEA-FOR RESCUE AFTER 15 MIN - Objective Vital Signs: Vital Signs Temperature 98.6 F 10/12/17 11:00 Pulse Rate 69 10/12/17 11:00 Respiratory Rate 18 10/12/17 11:00 Blood Pressure 130/85 10/12/17 11:00 O2 Sat by Pulse Oximetry (%) 99 10/11/17 14:21 Labs: CBC, BMP 10/12/17 07:00 10/12/17 07:00 INR, PTT INR 1.17 (0.82-1.09) H 10/09/17 07:00 Problem List - Problems (1) Perirectal abscess Code(s): K61.1 - RECTAL ABSCESS (2) Diarrhea Code(s): R19.7 - DIARRHEA, UNSPECIFIED Qualifiers: Diarrhea type: unspecified type Qualified Code(s): R19.7 - Diarrhea, unspecified (3) Hypertension Code(s): I10 - ESSENTIAL (PRIMARY) HYPERTENSION Assessment/Plan Surgery: Patient is scheduled for cystoscopy , to assess the urinary bladder, for any invasion , and possible ureteral stenting by Gabe Navas. 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 Surgical plan : Resection of rectosigmoid tumor with low rectal anastamossi. if tumor is extensive and inoperable, will do diverting colostomy. If gross tumor is identified in the liver , will do liver biopsy as well. Patient and his mother were explained , with risks, benefits and complications , including , wound infection , dehiscence of the anastamosis, and bleeding. He is on clear liquids, by mouth. Surgery is planned for 10/14/2017.
--- NOTE | 2017-10-12 15:17 | PN ---
Progress Note (short form) - Note Progress Note: PULMONARY Denies shortness of breath or chest pain. No cough or wheezing. Last Vital Signs Temp Pulse Resp BP Pulse Ox 98.6 F 69 18 130/85 99 10/12/17 11:00 10/12/17 11:00 10/12/17 11:00 10/12/17 11:00 10/11/17 14:21 Gen: NAD at rest Heart: RRR Lung: decreased breath sounds at the bases Abd: soft, nontender Ext: no edema CBC, BMP 10/12/17 07:00 10/12/17 07:00 Active Medications Bisacodyl (Dulcolax -) 10 mg PO BID [facility] Carvedilol (Coreg -) 12.5 mg PO BID [facility] Last Admin: 10/12/17 10:46 Dose: 12.5 mg Fentanyl (Sublimaze Injection -) 50 mcg IVPUSH [id number] PRN PRN Reason: PAIN HCTZ/Losartan Potassium (Hyzaar -) 2 tab PO DAILY [facility] Last Admin: 10/12/17 10:46 Dose: 2 tab Ondansetron HCl (Zofran Injection) 4 mg IVPUSH Q6H PRN PRN Reason: NAUSEA AND/OR VOMITING Promethazine HCl (Phenergan Injection -) 12.5 mg IVPB Q6H PRN PRN Reason: NAUSEA-FOR RESCUE AFTER 15 MIN A/P Newly Diagnosed Rectal Ca Lung Nodules suspicious for metastatic disease HTN - for LAR on 10/14, will get liver biopsy then as well - if liver biopsy nondiagnostic, will need VATS/wedge for tissue diagnosis - DVT prophylaxis Problem List - Problems (1) Rectal mass Code(s): K62.9 - DISEASE OF ANUS AND RECTUM, UNSPECIFIED (2) Hypertension Code(s): I10 - ESSENTIAL (PRIMARY) HYPERTENSION (3) Lung nodules Code(s): R91.8 - OTHER NONSPECIFIC ABNORMAL FINDING OF LUNG FIELD
[2017-10-12] MEDS ORDERED: WITCH HAZEL 50% (TUCKS) 40 PAD/JAR PAD TP PRN (18:00)
[2017-10-13 07:16] LABS: BASO % 0.3 % (0-2.0); EOS % 0.9 % (0-4.5); HEMATOCRIT 35.5 % (35.4-49); HEMOGLOBIN 11.7 GM/dL (11.7-16.9); LYMPH % 17.2 % (8-40); MCH 26.4 pg (25.7-33.7); MCHC 32.9 g/dl (32.0-35.9); MEAN CELL VOLUME 80.2 fl (80-96); MEAN PLT VOLUME 8.1 fl (7.5-11.1); MONO % 10.8 % (3.8-10.2); NEUT % 70.8 % (42.8-82.8); PLATELET COUNT 370 K/MM3 (134-434); RBC 4.42 M/mm3 (4.00-5.60); RDW 15.7 % (11.9-15.9); WHITE BLOOD COUNT 9.6 K/mm3 (4.0-10.0)
[2017-10-13 07:37] LABS: ANION GAP 7 (8-16); BLOOD UREA NITROGEN 8 mg/dL (7-18); CALCIUM 7.9 mg/dL (8.5-10.1); CHLORIDE 100 mmol/L (98-107); CO2 31 mmol/L (21-32); CREATININE 0.9 mg/dL (0.7-1.3); GLUCOSE,RANDOM 80 mg/dL (74-106); POTASSIUM 3.7 mmol/L (3.5-5.1); SODIUM 138 mmol/L (136-145)
[2017-10-13] MEDS: BISACODYL 5 MG TABLET.DR (FP) PO SCH ×3 (08:46→21:10)
[2017-10-13] MEDS ORDERED: PT OWN MED DRAWER 7, Y5N ONE (09:17)
[2017-10-13] MEDS: CARVEDILOL 12.5 MG TABLET (FP) PO SCH ×2 (10:16→21:10)
[2017-10-13] MEDS: LOSARTAN 50MG/HCTZ 12.5MG 1 TAB (FP) PO SCH (10:16)
--- NOTE | 2017-10-13 12:41 | PN ---
Progress Note (short form) - Note Progress Note: Seen and examined s/p colonoscopy with obstructing lesion Scheduled for LAR tomorrow and with ? liver biopsy Vital Signs Period Temp Pulse Resp BP Sys/Bal Pulse Ox Last 24 Hr 98 F-98.5 F 65-81 18-20 108-133/70-98 99 CBC, BMP 10/13/17 06:55 10/13/17 06:55 Active Medications Generic Name Dose Route Start Last Admin Trade Name Zacq PRN Reason Stop Dose Admin Bisacodyl 10 mg 10/13/17 08:00 10/13/17 11:32 Dulcolax - PO 10 mg BID AJ Administration Carvedilol 12.5 mg 10/10/17 13:00 10/13/17 10:16 Coreg - PO 12.5 mg BID AJ Administration Fentanyl 50 mcg 10/08/17 12:52 Sublimaze Injection - IVPUSH [id number] PRN PAIN HCTZ/Losartan Potassium 2 tab 10/10/17 13:00 10/13/17 10:16 Hyzaar - PO 2 tab DAILY AJ Administration Ondansetron HCl 4 mg 10/08/17 12:52 Zofran Injection IVPUSH Q6H PRN NAUSEA AND/OR VOMITING Promethazine HCl 12.5 mg 10/08/17 12:52 Phenergan Injection - IVPB Q6H PRN NAUSEA-FOR RESCUE AFTER 15 MIN Witch Adela/Glycerin 1 pad 10/12/17 18:00 Tucks Pads - TP Q4H PRN suspicious for mCRC -LAR scheduled for tomorrow -can give vitamin K po *1 if needed by surgery -overall coping ok with the diagnosis Problem List - Problems (1) Anemia due to blood loss, chronic Code(s): D50.0 - IRON DEFICIENCY ANEMIA SECONDARY TO BLOOD LOSS (CHRONIC) (2) Rectal mass Code(s): K62.9 - DISEASE OF ANUS AND RECTUM, UNSPECIFIED (3) Perirectal abscess Code(s): K61.1 - RECTAL ABSCESS (4) Large bowel obstruction Code(s): K56.609 - UNSP INTESTNL OBST, UNSP TO PARTIAL VERSUS COMPLETE OBST (5) Weight loss, non-intentional Code(s): R63.4 - ABNORMAL WEIGHT LOSS
--- NOTE | 2017-10-13 13:18 | PN ---
Progress Note (short form) - Note Progress Note: pt seen/ examined. comfortable Daughter at bedside no complains. scheduled for or tomorrow I also discussed with pts private pmd Dr. Nice-- Updated him He also tells me pt has h/o cva on past-- no deficits Discussed with pt-- pt acknowledges - also says - he takes asa - baby sometimes Vital Signs Temp 98 F 10/13/17 10:00 Pulse 68 10/13/17 10:00 Resp 20 10/13/17 10:00 BP 125/80 10/13/17 10:00 Pulse Ox 99 10/12/17 21:00 Intake & Output 10/12/17 10/13/17 10/13/17 23:59 11:59 23:59 Intake Total 900 100 Balance 900 100 Intake: Oral 900 100 Other: Voiding Method Toilet Toilet # Unmeasured Voids Void 2 2 Bowel Movement No Active Medications Bisacodyl (Dulcolax -) 10 mg PO BID [facility] Last Admin: 10/13/17 11:32 Dose: 10 mg Carvedilol (Coreg -) 12.5 mg PO BID [facility] Last Admin: 10/13/17 10:16 Dose: 12.5 mg Fentanyl (Sublimaze Injection -) 50 mcg IVPUSH [id number] PRN PRN Reason: PAIN HCTZ/Losartan Potassium (Hyzaar -) 2 tab PO DAILY [facility] Last Admin: 10/13/17 10:16 Dose: 2 tab Ondansetron HCl (Zofran Injection) 4 mg IVPUSH Q6H PRN PRN Reason: NAUSEA AND/OR VOMITING Promethazine HCl (Phenergan Injection -) 12.5 mg IVPB Q6H PRN PRN Reason: NAUSEA-FOR RESCUE AFTER 15 MIN Witch Adela/Glycerin (Tucks Pads -) 1 pad TP Q4H PRN CBC, BMP 10/12/17 07:00 10/12/17 07:00 Physical Exam Constitutional: Yes: Well Nourished, No Distress, Calm/ Comfortable. Eyes: Yes: WNL, Conjunctiva Clear, EOM Intact HENT: Yes: Atraumatic, Normocephalic Neck: Yes: Supple, Trachea Midline/ no lymphadenopathy.. 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 colonoscopy findings noted for or on moday - cysto/ surgery and possible liver biopsy discussed with pt/ daughter today. bp under control will follow. Problem List - Problems (1) Anemia due to blood loss, chronic Code(s): D50.0 - IRON DEFICIENCY ANEMIA SECONDARY TO BLOOD LOSS (CHRONIC) (2) Bladder wall thickening Code(s): N32.89 - OTHER SPECIFIED DISORDERS OF BLADDER (3) Hypertension Code(s): I10 - ESSENTIAL (PRIMARY) HYPERTENSION (4) Large bowel obstruction Code(s): K56.609 - UNSP INTESTNL OBST, UNSP TO PARTIAL VERSUS COMPLETE OBST (5) Rectal mass Code(s): K62.9 - DISEASE OF ANUS AND RECTUM, UNSPECIFIED (6) Weight loss, non-intentional Code(s): R63.4 - ABNORMAL WEIGHT LOSS (7) Old cerebrovascular accident (CVA) without late effect Code(s): Z86.73 - PRSNL HX OF TIA (TIA), AND CEREB INFRC W/O RESID DEFICITS
--- NOTE | 2017-10-13 14:13 | PN ---
Progress Note (short form) - Note Progress Note: PULMONARY Denies shortness of breath or chest pain. No cough or wheezing. Last Vital Signs Temp Pulse Resp BP Pulse Ox 98 F 68 20 125/80 99 10/13/17 10:00 10/13/17 10:00 10/13/17 10:00 10/13/17 10:00 10/12/17 21:00 Gen: NAD at rest Heart: RRR Lung: decreased breath sounds at the bases Abd: soft, nontender Ext: no edema CBC, BMP 10/13/17 06:55 10/13/17 06:55 Active Medications Bisacodyl (Dulcolax -) 10 mg PO BID [facility] Last Admin: 10/13/17 11:32 Dose: 10 mg Carvedilol (Coreg -) 12.5 mg PO BID [facility] Last Admin: 10/13/17 10:16 Dose: 12.5 mg Fentanyl (Sublimaze Injection -) 50 mcg IVPUSH [id number] PRN PRN Reason: PAIN HCTZ/Losartan Potassium (Hyzaar -) 2 tab PO DAILY [facility] Last Admin: 10/13/17 10:16 Dose: 2 tab Ondansetron HCl (Zofran Injection) 4 mg IVPUSH Q6H PRN PRN Reason: NAUSEA AND/OR VOMITING Promethazine HCl (Phenergan Injection -) 12.5 mg IVPB Q6H PRN PRN Reason: NAUSEA-FOR RESCUE AFTER 15 MIN Witch Adela/Glycerin (Tucks Pads -) 1 pad TP Q4H PRN A/P Newly Diagnosed Rectal Ca Lung Nodules suspicious for metastatic disease HTN - for LAR on 10/14, will get liver biopsy then as well - if liver biopsy nondiagnostic, will need VATS/wedge for tissue diagnosis - DVT prophylaxis Problem List - Problems (1) Rectal mass Code(s): K62.9 - DISEASE OF ANUS AND RECTUM, UNSPECIFIED (2) Hypertension Code(s): I10 - ESSENTIAL (PRIMARY) HYPERTENSION (3) Lung nodules Code(s): R91.8 - OTHER NONSPECIFIC ABNORMAL FINDING OF LUNG FIELD
[2017-10-14] MEDS ORDERED: PROPOFOL 20 ML ONE ×2 (07:59)
[2017-10-14] MEDS ORDERED: fentaNYL CITRATE 250 MCG/5 ML VIAL ONE (07:59)
[2017-10-14] MEDS ORDERED: MIDAZOLAM HCL 2 MG/2 ML SINGLE DOSE VIAL ONE (07:59)
[2017-10-14] MEDS ORDERED: SUCCINYLCHOLINE CHLORIDE 200 MG/10 ML VIAL ONE (07:59)
[2017-10-14] MEDS ORDERED: ROCURONIUM BROMIDE 50 MG/5 ML VIAL ONE ×2 (08:00→08:51)
[2017-10-14] MEDS ORDERED: DEXAMETHASONE SOD PHOSPHATE 4 MG/1 ML VIAL ONE (08:02)
[2017-10-14] MEDS ORDERED: ceFAZolin SODIUM 1 GM VIAL ONE (08:02)
[2017-10-14 08:08] LABS: INR 1.19 (0.82-1.09); PROTHROMBIN TIME (PATIENT) 13.5 SEC (9.98-11.88)
[2017-10-14 08:10] LABS: ACTIVATED PTT 30.2 SECONDS (26.9-34.4)
[2017-10-14] MEDS ORDERED: ERTAPENEM SODIUM 1 GM VIAL ONE (08:20)
[2017-10-14] MEDS ORDERED: MEROPENEM 1 GM VIAL (RESTRICTED TO ID) IVPB ONE ×3 (08:33→08:38)
[2017-10-14] MEDS ORDERED: ePHEDrine SULFATE 50 MG/1 ML AMPULE ONE (08:43)
[2017-10-14] MEDS ORDERED: PHENYLEPHRINE HCL 10 MG/1 ML SINGLE DOSE VIAL ONE (08:45)
[2017-10-14] MEDS ORDERED: ONDANSETRON 4 MG/2 ML VIAL IVPUSH PRN ×3 (09:46→11:18)
[2017-10-14] MEDS ORDERED: DEXAMETHASONE SOD PHOSPHATE 4 MG/1 ML VIAL IVPUSH ONE ×2 (09:46→11:29)
[2017-10-14] MEDS ORDERED: PROMETHAZINE HCL 25 MG/1 ML VIAL IVPB PRN ×3 (09:46→11:18)
[2017-10-14] MEDS ORDERED: HYDROmorphone *PCA* 10MG/50ML DISP.SYRIN PCA SCH (10:00)
[2017-10-14] MEDS ORDERED: GLYCOPYRROLATE 0.2 MG/1 ML VIAL ONE (10:08)
[2017-10-14] MEDS ORDERED: NEOSTIGMINE METHYLSULFATE 0.5 MG/ML - 10 ML MDV ONE (10:08)
--- NOTE | 2017-10-14 10:46 | OP ---
Operative Note - Note: Operative Date: 10/14/17 Pre-Operative Diagnosis: Carcinoma of rectosigmoid colon, with metastasis, to liver and lung. Operation: 1)Exploratory laparotomy,. 2) peritoneal biopsy. 3)wedge biopsy of liver,. 4)Tranverse colostomy. Findings: Large tumor in rectosigmoid , extending to both lateral wall of the pelvis and anteriorly to the bladder and pubis, the tumor involving the pelvic peritoneum , a small segment sent for biopsy. Multiple metastatic nodules in the right lobe of the liver, a wedge biopsy was done . from a nodule on the inferior surface of the right lobe of the liver. A transverse loop colostomy was done in the distal transverse colon , in the left upper quadrant of abdomen. Post-Operative Diagnosis: Other (Localiy advanced rectosgmoid carcinoma, invading the lateral pelvic wall and pelvic peritoneum , and liver.) Surgeon: Khloe Stapleton Machine Filler: Ag Hernández Specimens Removed: 1) Peritoneal implant in the pelvis,. 2) Wedge biopsy of the liver. Estimated Blood Loss (mls): 25 Operative Report Dictated: Yes
[2017-10-14] MEDS ORDERED: HYDROmorphone *PCA* 10MG/50ML DISP.SYRIN PCA ONE (10:59)
[2017-10-14] MEDS ORDERED: WITCH HAZEL 50% (TUCKS) 40 PAD/JAR PAD TP PRN (11:18)
[2017-10-14] MEDS ORDERED: morphine SULFATE/PF 30 MG/30 ML *PCA* DISP.SYRIN PCA SCH (11:18)
[2017-10-14] MEDS: HYDROmorphone HCL CARPU-JECT 2 MG/1 ML DISP.SYRIN IVPUSH PRN ×4 (11:43→12:27)
[2017-10-14] MEDS ORDERED: HYDROmorphone HCL CARPU-JECT 2 MG/1 ML DISP.SYRIN ONE ×2 (11:43→12:17)
--- NOTE | 2017-10-14 13:03 | PN ---
Progress Note (short form) - Note Progress Note: Patient seen and examined Seen in recovery room. Slightly delirious Last Vital Signs Temp Pulse Resp BP Pulse Ox 99 F 72 18 121/86 99 10/14/17 10:46 10/14/17 12:45 10/14/17 12:45 10/14/17 12:45 10/14/17 12:45 Cor: RSR, No murmurs, No gallops Lungs: Clear to P&A Abd: Soft,laparotomy dressing +, ostomy+ Ext:No significant edema Abnormal Lab Results 10/14/17 06:00 PT with INR 13.50 H INR 1.19 H Active Medications Generic Name Dose Route Start Last Admin Trade Name Freq PRN Reason Stop Dose Admin Hydromorphone HCl 10 mg 10/14/17 11:18 Dilaudid Psychiatric Lpn - FITTER ARMAMENT 10/21/17 09:46 FITTER ARMAMENT AJ Protocol Potassium Chloride/Sodium Chloride 20 meq in 1,000 mls @ 100 mls/hr 10/14/17 11:18 1/2ns+20meq Kcl IV ASDIR AJ Ondansetron HCl 4 mg 10/14/17 11:18 Zofran Injection IVPUSH Q6H PRN NAUSEA AND/OR VOMITING Ondansetron HCl 4 mg 10/14/17 11:18 Zofran Injection IVPUSH Q4H PRN NAUSEA AND/OR VOMITING Witch Adela/Glycerin 1 pad 10/14/17 11:18 Tucks Pads - TP Q4H PRN A/P 47 y/o patient with Carcinoma of rectosigmoid colon, with metastasis, to liver and lung. 1)Exploratory laparotomy,. 2) peritoneal biopsy. 3)wedge biopsy of liver,. 4 )Tranverse colostomy. Large tumor in rectosigmoid , extending to both lateral wall of the pelvis and anteriorly to the bladder and pubis, the tumor involving the pelvic peritoneum , a small segment sent for biopsy. Multiple metastatic nodules in the right lobe of the liver, a wedge biopsy was done . from a nodule on the inferior surface of the right lobe of the liver. A transverse loop colostomy was done in the distal transverse colon , in the left upper quadrant of abdomen. Post op. will follow
[2017-10-14] MEDS: SODIUM CHLORIDE 0.45%/POT 20 MEQ/1,000 ML INFUS.BAG IV SCH (17:30)
--- NOTE | 2017-10-14 17:35 | PN ---
Progress Note (short form) - Note Progress Note: pt seen in recovery room. comfortable. drowsy- arousable denies pain. Vital Signs Temp 10/14/17 13:15 Pulse 72 10/14/17 17:15 Resp 18 10/14/17 17:15 BP 119/82 10/14/17 17:15 Pulse Ox 100 10/14/17 17:15 Intake & Output 10/13/17 10/14/17 10/14/17 23:59 11:59 23:59 Intake Total 900 2000 0 Output Total 1660 Balance 900 340 0 Intake: IV 2000 0 IVPB 0 Oral 900 Output: Urine 50 Estimated Blood Loss 10 Other 1600 Other: Voiding Method Toilet Toilet # Unmeasured Voids Void 2 2 Bowel Movement No Active Medications Hydromorphone HCl (Dilaudid Cleat Maker -) 10 mg NEW CLIENT BANKING SERVICES CLERK NEW CLIENT BANKING SERVICES CLERK AJ PRN Reason: Protocol Stop: 10/21/17 09:46 Potassium Chloride/Sodium Chloride (1/2ns+20meq Kcl) 20 meq in 1,000 mls @ 100 mls/hr IV ASDIR AJ Ondansetron HCl (Zofran Injection) 4 mg IVPUSH Q6H PRN PRN Reason: NAUSEA AND/OR VOMITING Ondansetron HCl (Zofran Injection) 4 mg IVPUSH Q4H PRN PRN Reason: NAUSEA AND/OR VOMITING Witch Adela/Glycerin (Tucks Pads -) 1 pad TP Q4H PRN CBC, BMP 10/13/17 06:55 10/13/17 06:55 Physical Exam Constitutional: comfortable Neck: Yes: Supple, Cardiovascular: Yes: Regular Rate and Rhythm Respiratory: Yes: clear to auscultation Gastrointestinal: Yes: Soft Edema: No Neurological: Yes: Drowsy/ Arousable. Assessment/Plan 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 In summary Large tumor in rectosigmoid , extending to both lateral wall of the pelvis and anteriorly to the bladder and pubis, the tumor involving the pelvic peritoneum , a small segment sent for biopsy. Multiple metastatic nodules in the right lobe of the liver, a wedge biopsy was done . from a nodule on the inferior surface of the right lobe of the liver. A transverse loop colostomy was done in the distal transverse colon , in the left upper quadrant of abdomen. Discussed with also. will follow Problem List - Problems (1) Anemia due to blood loss, chronic Code(s): D50.0 - IRON DEFICIENCY ANEMIA SECONDARY TO BLOOD LOSS (CHRONIC) (2) Bladder wall thickening Code(s): N32.89 - OTHER SPECIFIED DISORDERS OF BLADDER (3) Hypertension Code(s): I10 - ESSENTIAL (PRIMARY) HYPERTENSION (4) Large bowel obstruction Code(s): K56.609 - UNSP INTESTNL OBST, UNSP TO PARTIAL VERSUS COMPLETE OBST (5) Rectal mass Code(s): K62.9 - DISEASE OF ANUS AND RECTUM, UNSPECIFIED (6) Weight loss, non-intentional Code(s): R63.4 - ABNORMAL WEIGHT LOSS (7) Old cerebrovascular accident (CVA) without late effect Code(s): Z86.73 - PRSNL HX OF TIA (TIA), AND CEREB INFRC W/O RESID DEFICITS
--- NOTE | 2017-10-14 20:13 | OP ---
DATE OF OPERATION: 10/14/2017 PREOPERATIVE DIAGNOSIS: Colon cancer. POSTOPERATIVE DIAGNOSIS: Colon cancer. PROCEDURE: Cystoscopy, bilateral ureteral stent placement. ANESTHESIA: General. SURGEON: Victoriano Mills MD PREOPERATIVE INDICATIONS: The patient is a 47-year-old male with a large rectal mass. He is set to have either a diversion or resection of the diseased bowel. On CT scan, the tumor appears to be abutting the urinary bladder and the prostate. Stents are placed to aid with the procedure as well as cystoscopy to evaluate the bladder and any evidence of tumor invasion. OPERATION: Patient brought to the OR, placed on the table in the supine position, given general anesthesia and IV antibiotics, and placed in a modified lithotomy position. The groin was prepped and draped sterilely. Cystoscopy was performed. The distal urethra appeared to be normal. The prostate itself was normal as well. The bladder itself: No tumors or stones were seen. No evidence of any perforation or fistula or any invasion of any external mass was seen. Bilateral ureteral stents were placed. Open-ended catheters were placed on both sides. The bladder was emptied. They were then connected to the Mancia catheter for drainage. VICTORIANO MILLS M.D. [id number]
--- NOTE | 2017-10-14 21:50 | OP ---
DATE OF OPERATION: DATE OF DICTATION: 10/14/2017 PREOPERATIVE DIAGNOSIS: Carcinoma of the rectosigmoid colon with metastasis to liver and lung and intestinal obstruction. POSTOPERATIVE DIAGNOSIS: Large tumor in the rectosigmoid extending to both lateral simmons of the pelvis and anteriorly to the urinary bladder, and pubis. The tumor also involves the pelvic peritoneum. There are also multiple metastatic nodules in the right lobe of the liver. OPERATIVE PROCEDURE: 1. Exploratory laparotomy. 2. Peritoneal biopsy. 3. Wedge biopsy of the liver. 4. Transverse colostomy. SURGEON: Edith Stapleton MD HEATER MECHANIC: Ag Hernández MD ANESTHESIA: General anesthesia. OPERATIVE DESCRIPTION: This 47-year-old man was evaluated a week ago for what then appeared to be a pelvic abscess and found to have a rectosigmoid tumor with liver metastasis and possible lung metastasis. He was brought in for possible resection of the tumor or a diverting colostomy. Consent was obtained. Risks, benefits, and complications had been discussed with the patient. Patient was placed in lithotomy position. Prior to the surgery, Dr. Mills did a cystoscopy and bilateral ureteral catheterization. There was no gross evidence of involvement of the lining of the bladder. The abdomen was painted and draped. Timeout was called. The perineum was also painted and draped. The abdomen was then opened through a vertical midline incision from the pubic symphysis to just above the umbilicus. This was deepened through the skin and subcutaneous tissue and the linea alba. The abdominal wall was retracted with retractors. Prior to this, a rectal examination was done, wherein the tumor appeared much lower than what was assessed a week ago. After laparotomy, the tumor was effaced. There was lateral cicatrization in the pelvis in the rectosigmoid area. A hard mass from the rectosigmoid area extending to both lateral pelvic simmons, but predominantly the left side, also involving anteriorly towards the pubice and the bladder. The tumor had broken open into the peritoneum, and there was involvement of the pelvic peritoneum. A small piece was obtained for biopsy. The tumor was then deemed not resectable. It was then decided to do a transverse loop colostomy in the distal transverse colon. The liver was examined. There were multiple nodules in the right lobe of the liver on the anterolateral surface, on the superior surface, as well as the inferior surface of the right lobe of the liver. A wedge biopsy was obtained of the nodule on the inferior surface of the liver using a number-11 blade. After excision, the liver itself was cauterized with electrocautery. Hemostasis was satisfactory. A left transverse colostomy was then performed by making small incision in vertical fashion in the left upper quadrant of the abdomen. The subcutaneous fat was then incised. The anterior rectus sheath was incised vertically. The rectus muscle was divided, and the posterior rectus sheath and peritoneum were incised. A loop of transverse colon in the distal third was then brought out through the abdominal wall with a number 1 Edmore drain. The colostomy was then anchored to the anterior rectus sheath with interrupted 3-0 silk sutures. Colostomy was also anchored to the dermis with interrupted 3-0 silk sutures, going through the seromuscular layer of the colon. The colostomy was adequately brought out through the abdominal wall. The Edmore drain was anchored to the skin with 2-0 silk sutures. The abdominal wall was irrigated with normal saline. The abdomen was closed with No. 1 loop PDS sutures in a continuous fashion. The skin was reapproximated with mishel, again after irrigating the skin and subcutaneous tissue. Estimated blood loss was 25 mL. The colostomy was matured by electrocautery on the antimesenteric side of the loop. This was exteriorized. A colostomy bag was then placed over the stoma, anf adhesed to the abdominal wall. Patient tolerated the procedure well, was extubated, and transferred to the recovery room in satisfactory and stable condition. The Mancia catheter and stent was removed at the completion of the procedure. John [id number] MTDD
[2017-10-15] MEDS: SODIUM CHLORIDE 0.45%/POT 20 MEQ/1,000 ML INFUS.BAG IV SCH ×3 (04:00→23:30)
--- NOTE | 2017-10-15 09:14 | PN ---
Progress Note (short form) - Note Progress Note: comfortable pain under control with brickmason apprentice pump. Vital Signs Temp 98.1 F 10/15/17 06:00 Pulse 57 L 10/15/17 06:00 Resp 18 10/15/17 06:00 BP 109/74 10/15/17 06:00 Pulse Ox 100 10/14/17 21:00 Intake & Output 10/14/17 10/14/17 10/15/17 11:59 23:59 11:59 Intake Total 1999 575 1100 Output Total 1660 500 380 Balance 340 75 720 Intake: IV 2000 550 1100 1/2NS+20MEQ KCL 20 meq In 1100 1,000 ml @ 100 mls/hr IV ASDIR AJ Rx#: [id number] Oral 25 Output: Urine 50 500 380 Void 380 Estimated Blood Loss 10 Other 1600 Other: Voiding Method Toilet Toilet # Unmeasured Voids Void 2 2 Bowel Movement No Active Medications Hydromorphone HCl (Dilaudid Hand Coper -) 10 mg GRIEF COUNSELLOR GRIEF COUNSELLOR AJ PRN Reason: Protocol Stop: 10/21/17 09:46 Potassium Chloride/Sodium Chloride (1/2ns+20meq Kcl) 20 meq in 1,000 mls @ 100 mls/hr IV ASDIR AJ Last Admin: 10/15/17 04:00 Dose: 100 mls/hr Ondansetron HCl (Zofran Injection) 4 mg IVPUSH Q6H PRN PRN Reason: NAUSEA AND/OR VOMITING Ondansetron HCl (Zofran Injection) 4 mg IVPUSH Q4H PRN PRN Reason: NAUSEA AND/OR VOMITING Witch Adela/Glycerin (Tucks Pads -) 1 pad TP Q4H PRN CBC, BMP 10/13/17 06:55 10/13/17 06:55 Physical Exam Constitutional: comfortable Neck: Yes: Supple, Cardiovascular: Yes: Regular Rate and Rhythm Respiratory: Yes: clear to auscultation Gastrointestinal: Yes: Soft. Edema: No Neurological: Yes: Drowsy/ Arousable. Assessment/Plan pod # 1 s/p colostomy metastatic adenocarcinoma htn h/o cva continue present care will follow npo for now. Problem List - Problems (1) Anemia due to blood loss, chronic Code(s): D50.0 - IRON DEFICIENCY ANEMIA SECONDARY TO BLOOD LOSS (CHRONIC) (2) Bladder wall thickening Code(s): N32.89 - OTHER SPECIFIED DISORDERS OF BLADDER (3) Hypertension Code(s): I10 - ESSENTIAL (PRIMARY) HYPERTENSION (4) Large bowel obstruction Code(s): K56.609 - UNSP INTESTNL OBST, UNSP TO PARTIAL VERSUS COMPLETE OBST (5) Rectal mass Code(s): K62.9 - DISEASE OF ANUS AND RECTUM, UNSPECIFIED (6) Weight loss, non-intentional Code(s): R63.4 - ABNORMAL WEIGHT LOSS (7) Old cerebrovascular accident (CVA) without late effect Code(s): Z86.73 - PRSNL HX OF TIA (TIA), AND CEREB INFRC W/O RESID DEFICITS
--- NOTE | 2017-10-15 10:48 | PN ---
Progress Note, Physician - Current Medication List Current Medications: Active Medications Hydromorphone HCl (Dilaudid Passenger Relations Representative -) 10 mg DRAFTER MARINE DRAFTER MARINE AJ PRN Reason: Protocol Stop: 10/21/17 09:46 Potassium Chloride/Sodium Chloride (1/2ns+20meq Kcl) 20 meq in 1,000 mls @ 100 mls/hr IV ASDIR AJ Last Admin: 10/15/17 04:00 Dose: 100 mls/hr Ondansetron HCl (Zofran Injection) 4 mg IVPUSH Q6H PRN PRN Reason: NAUSEA AND/OR VOMITING Ondansetron HCl (Zofran Injection) 4 mg IVPUSH Q4H PRN PRN Reason: NAUSEA AND/OR VOMITING Witch Adela/Glycerin (Tucks Pads -) 1 pad TP Q4H PRN - Objective Vital Signs: Vital Signs Temperature 98.1 F 10/15/17 09:00 Pulse Rate 56 L 10/15/17 09:00 Respiratory Rate 18 10/15/17 09:00 Blood Pressure 114/68 10/15/17 09:00 O2 Sat by Pulse Oximetry (%) 100 10/15/17 09:00 Labs: CBC, BMP 10/13/17 06:55 10/13/17 06:55 INR, PTT INR 1.19 (0.82-1.09) H 10/14/17 06:00 Problem List - Problems (1) Perirectal abscess Code(s): K61.1 - RECTAL ABSCESS (2) Diarrhea Code(s): R19.7 - DIARRHEA, UNSPECIFIED Qualifiers: Diarrhea type: unspecified type Qualified Code(s): R19.7 - Diarrhea, unspecified (3) Hypertension Code(s): I10 - ESSENTIAL (PRIMARY) HYPERTENSION Assessment/Plan Surgery: Patient is alert and oriented. Colostomy is pink. He is informed of the operative findings and procedure performed. Wound is clean, ambulate, DVT prophylaxis. Sips of water and clearv liquids by mouth.
--- NOTE | 2017-10-15 11:23 | PN ---
Progress Note (short form) - Note Progress Note: Anesthesia postop note and pain management follow up 47 y/o M s/p GA for laparotomy, colostomy, cysto/ stent, dilaudid product test engineer for postop pain management. POD#1, vss, aaox3, pain well controlled, no complaints, will continue product test engineer today. NO anesthesia complications.
--- NOTE | 2017-10-15 12:56 | PN ---
Progress Note (short form) - Note Progress Note: Seen and examined s/p surgery, events noted pt says he is recovering well. Started diet Constitutional: Yes: Well Nourished, No Distress, Calm Eyes: Yes: WNL, Conjunctiva Clear, EOM Intact HENT: Yes: Atraumatic, Normocephalic Neck: Yes: Supple, Trachea Midline Cardiovascular: Yes: Regular Rate and Rhythm Respiratory: Yes: Regular Gastrointestinal: Yes: Soft, Abdomen, Obese Extremities: Yes: WNL Edema: No Neurological: Yes: Alert, Oriented Psychiatric: Yes: Alert, Oriented Last Vital Signs Temp Pulse Resp BP Pulse Ox 98.1 F 56 L 18 114/68 100 10/15/17 09:00 10/15/17 09:00 10/15/17 09:00 10/15/17 09:00 10/15/17 09:00 CBC, BMP 10/13/17 06:55 10/13/17 06:55 Current Medications Generic Name Dose Route Start Last Admin Trade Name Freq PRN Reason Stop Dose Admin Heparin Sodium (Porcine) 5,000 unit 10/15/17 11:00 Heparin - SQ BID AJ Hydromorphone HCl 10 mg 10/14/17 11:18 Dilaudid Computer Graphics Illustrator - PARASITOLOGIST 10/21/17 09:46 PARASITOLOGIST AJ Protocol Potassium Chloride/Sodium Chloride 20 meq in 1,000 mls @ 100 mls/hr 10/14/17 11:18 10/15/17 04:00 1/2ns+20meq Kcl IV 100 mls/hr ASDIR AJ Administration Ondansetron HCl 4 mg 10/14/17 11:18 Zofran Injection IVPUSH Q6H PRN NAUSEA AND/OR VOMITING Ondansetron HCl 4 mg 10/14/17 11:18 Zofran Injection IVPUSH Q4H PRN NAUSEA AND/OR VOMITING Witch Adela/Glycerin 1 pad 10/14/17 11:18 Tucks Pads - TP Q4H PRN 47 y/o patient with Carcinoma of rectosigmoid colon, with metastasis, to liver and lung. 1)Exploratory laparotomy,. 2) peritoneal biopsy. 3)wedge biopsy of liver,. 4 )Transverse colostomy. Per Op Note :" Large tumor in rectosigmoid , extending to both lateral wall of the pelvis and anteriorly to the bladder and pubis, the tumor involving the pelvic peritoneum , a small segment sent for biopsy. Multiple metastatic nodules in the right lobe of the liver, a wedge biopsy was done . from a nodule on the inferior surface of the right lobe of the liver. A transverse loop colostomy was done in the distal transverse colon , in the left upper quadrant of abdomen" will f.u on final path, including liver, f/u on MS status. will need systemic chemo therapy post-op ( ideally 2-3weeks pending recovery) . would need P-A-C, d/w , will likely do prior to d/c. DVT ppx post surgery per Surgery d.w pt and pt's mother (with his permission) extensively the plan. Problem List - Problems (1) Anemia due to blood loss, chronic Code(s): D50.0 - IRON DEFICIENCY ANEMIA SECONDARY TO BLOOD LOSS (CHRONIC) (2) Rectal mass Code(s): K62.9 - DISEASE OF ANUS AND RECTUM, UNSPECIFIED (3) Perirectal abscess Code(s): K61.1 - RECTAL ABSCESS (4) Large bowel obstruction Code(s): K56.609 - UNSP INTESTNL OBST, UNSP TO PARTIAL VERSUS COMPLETE OBST (5) Weight loss, non-intentional Code(s): R63.4 - ABNORMAL WEIGHT LOSS
--- NOTE | 2017-10-15 13:31 | PATH ---
Surgical Pathology Report Patient Name: CAROLYNN FRANZ [facility]. Rec. #: [id number] /Age/Gender: 1970 (Age: 47) / M Account: [id number] Location: [address] [place] [address] Taken: 10/11/2017 Received: 10/14/2017 Reported: 10/15/2017 Physicians: John Hernandez M.D. Pushpinder Singh, M.D. Specimen(s) Received A: CECAL POLYP B: RIGHT COLON POLYP C: BX SIGMOID ULCERS AT 20CM. D: BX RECTAL MASS Clinical History Preoperative diagnosis: Rectal mass, diarrhea Postoperative diagnosis: Polyps, sigmoid ulcers, rectal mass Final Diagnosis A. CECUM, POLYP, POLYPECTOMY: HYPERPLASTIC POLYP. B. COLON, RIGHT, POLYP, POLYPECTOMY: HYPERPLASTIC POLYP. C. SIGMOID, ULCER AT 20 CM, BIOPSY: COLONIC MUCOSA WITH REACTIVE CHANGES AND FIBRINOPURULENT EXUDATE CONSISTENT WITH ULCER BASE. D. RECTUM, MASS, BIOPSY: INVASIVE ADENOCARCINOMA, MODERATELY DIFFERENTIATED. Comment: See prior and concurrent material (S15-064 and S14-665). Electronically Signed Virginie Borja M.D. Addendum Reported: 10/15/2017 Addendum Diagnosis Findings discussed with Dr. Castro. Virginie Borja M.D. Gross Description A. Received in formalin, labeled "cecal polyp" is a louis, polypoid portion of soft tissue measuring 0.7 cm. in greatest dimension. The specimen is submitted in toto in one cassette. B. Received in formalin, labeled "right colon polyp" is a louis, polypoid portion of soft tissue measuring 0.6 cm. in greatest dimension. The specimen is submitted in toto in one cassette. C. Received in formalin, labeled "biopsy sigmoid ulcers at 20 cm" are 2 louis, irregular portions of soft tissue averaging 0.3 cm. in greatest dimension. The specimens are submitted in toto in one cassette. D. Received in formalin, labeled "biopsy rectal mass" are 6 louis, irregular portions of soft tissue ranging from 0.1-0.4 cm. in greatest dimension. The specimens are submitted in toto in one cassette. DL/10/14/2017 saudi/10/14/2017
[2017-10-15] MEDS: HEPARIN NA (PORCINE) 5,000 UNITS/ML 1ML VIAL SQ SCH ×2 (13:45→22:33)
--- NOTE | 2017-10-15 16:19 | PATH ---
Surgical Pathology Report Patient Name: CAROLYNN FRANZ [facility]. Rec. #: [id number] /Age/Gender: 1970 (Age: 47) / M Account: [id number] Location: [address] [place] [address] Taken: 10/14/2017 Received: 10/14/2017 Reported: 10/15/2017 Physicians: John Mena M.D. Pushpinder Singh, M.D. Specimen(s) Received A: PERITONEAL IMPLANT PELVIS B: LIVER BIOPSY Clinical History Colon cancer Final Diagnosis A. PERITONEUM, PELVIS, IMPLANT, BIOPSY: ADENOCARCINOMA, SCANT EVIDENCE. SEE COMMENT. B. LIVER, BIOPSY: INVASIVE ADENOCARCINOMA, MODERATELY DIFFERENTIATED. SEE COMMENT. Comment: Immunohistochemical stains performed and interpreted at [facility] show yhe tumor is positive for CK20, while negative for CK7 (part B). The tumor in both parts show morphologic similarities. Overall findings are consistent with patient's known history of rectal adenocarcinoma. See prior and concurrent materials (S18-416 and S15-630). Findings discussed with Drs. Stapleton and Matthew. Electronically Signed Virginie Borja M.D. Gross Description A. Received in formalin labeled "peritoneal implant pelvis," is a 0.5 x 0.4 x 0.2 cm louis soft tissue fragment. The specimen is submitted in toto in one cassette. B. Received in formalin labeled "liver biopsy," is a 0.5 x 0.5 x 0.2 cm pink-louis soft tissue fragment. The specimen is submitted in toto in one cassette. /10/14/2017 saudi10/14/2017
[2017-10-16] MEDS: LOSARTAN 50MG/HCTZ 12.5MG 1 TAB (FP) PO SCH (07:43)
[2017-10-16] MEDS: CARVEDILOL 12.5 MG TABLET (FP) PO SCH ×3 (07:43→21:35)
[2017-10-16] MEDS: BISACODYL 5 MG TABLET.DR (FP) PO SCH (07:43)
--- NOTE | 2017-10-16 10:13 | PN ---
Progress Note, Physician - Current Medication List Current Medications: Active Medications Heparin Sodium (Porcine) (Heparin -) 5,000 unit SQ BID [facility] Last Admin: 10/15/17 22:33 Dose: 5,000 unit Hydromorphone HCl (Dilaudid Program Support Assistant -) 10 mg CHECKING DEPARTMENT SUPERVISOR CHECKING DEPARTMENT SUPERVISOR [facility] PRN Reason: Protocol Stop: 10/21/17 09:46 Potassium Chloride/Sodium Chloride (1/2ns+20meq Kcl) 20 meq in 1,000 mls @ 100 mls/hr IV ASDIR [facility] Last Admin: 10/15/17 23:30 Dose: 100 mls/hr Ondansetron HCl (Zofran Injection) 4 mg IVPUSH Q6H PRN PRN Reason: NAUSEA AND/OR VOMITING Ondansetron HCl (Zofran Injection) 4 mg IVPUSH Q4H PRN PRN Reason: NAUSEA AND/OR VOMITING Witch Adela/Glycerin (Tucks Pads -) 1 pad TP Q4H PRN - Objective Vital Signs: Vital Signs Temperature 98.3 F 10/16/17 06:00 Pulse Rate 85 10/16/17 06:00 Respiratory Rate 18 10/16/17 06:00 Blood Pressure 130/96 10/16/17 06:00 O2 Sat by Pulse Oximetry (%) 96 10/15/17 21:00 Labs: CBC, BMP 10/13/17 06:55 10/13/17 06:55 INR, PTT INR 1.19 (0.82-1.09) H 10/14/17 06:00 Problem List - Problems (1) Perirectal abscess Code(s): K61.1 - RECTAL ABSCESS (2) Diarrhea Code(s): R19.7 - DIARRHEA, UNSPECIFIED Qualifiers: Diarrhea type: unspecified type Qualified Code(s): R19.7 - Diarrhea, unspecified (3) Hypertension Code(s): I10 - ESSENTIAL (PRIMARY) HYPERTENSION Assessment/Plan Surhery: Post operative day 2. Alert and orinted. Colostomy is pinl. Wound is clean, he has tolerated clear liquids. Will progress to diet as tolerated. Pathology: Liver biopsy is positive for adenocarcinoma. Biopsy from the pouch of Eduar , between the bladder and rectum is positive for adenocarcinoma, T4 lesion, Patient to start with chemotherapy. Patient is informed and aware of the extent of hisdisease and tratment modality. Plan to place portacath on Saturday. Patient has been explained of the procedure.
[2017-10-16] MEDS: HEPARIN NA (PORCINE) 5,000 UNITS/ML 1ML VIAL SQ SCH ×2 (10:14→21:35)
--- NOTE | 2017-10-16 10:31 | PN ---
Progress Note (short form) - Note Progress Note: pod #2 comfortable denies pain Vital Signs Temp 98.3 F 10/16/17 06:00 Pulse 85 10/16/17 06:00 Resp 18 10/16/17 06:00 BP 130/96 10/16/17 06:00 Pulse Ox 96 10/15/17 21:00 Intake & Output 10/15/17 10/15/17 10/16/17 11:59 23:59 11:59 Intake Total 1100 1550 1000 Output Total 380 200 Balance 720 1350 1000 Intake: IV 1100 1200 1000 1/2NS+20MEQ KCL 20 meq In 1100 1200 1000 1,000 ml @ 100 mls/hr IV ASDIR [facility] Rx#: [id number] Oral 350 Output: Urine 380 200 Void 380 200 Other: Voiding Method Toilet Urinal # Unmeasured Voids Void 1 Bowel Movement No Active Medications Carvedilol (Coreg -) 12.5 mg PO BID AJ Heparin Sodium (Porcine) (Heparin -) 5,000 unit SQ BID [facility] Last Admin: 10/16/17 10:14 Dose: 5,000 unit Hydromorphone HCl (Dilaudid Digital Tech -) 10 mg DOCUMENT IMAGING SPECIALIST DOCUMENT IMAGING SPECIALIST AJ PRN Reason: Protocol Stop: 10/21/17 09:46 Potassium Chloride/Sodium Chloride (1/2ns+20meq Kcl) 20 meq in 1,000 mls @ 100 mls/hr IV ASDIR [facility] Last Admin: 10/15/17 23:30 Dose: 100 mls/hr Ondansetron HCl (Zofran Injection) 4 mg IVPUSH Q6H PRN PRN Reason: NAUSEA AND/OR VOMITING Ondansetron HCl (Zofran Injection) 4 mg IVPUSH Q4H PRN PRN Reason: NAUSEA AND/OR VOMITING Witch Adela/Glycerin (Tucks Pads -) 1 pad TP Q4H PRN CBC, BMP 10/13/17 06:55 10/13/17 06:55 Physical Exam Constitutional: comfortable Neck: Yes: Supple, Cardiovascular: Yes: Regular Rate and Rhythm Respiratory: Yes: clear to auscultation Gastrointestinal: Yes: Soft. Edema: No Neurological: Yes: Drowsy/ Arousable. Assessment/Plan pod # 2 s/p colostomy metastatic adenocarcinoma- advanced htn h/o cva continue present care will follow pathology noted discussed with also. Problem List - Problems (1) Anemia due to blood loss, chronic Code(s): D50.0 - IRON DEFICIENCY ANEMIA SECONDARY TO BLOOD LOSS (CHRONIC) (2) Bladder wall thickening Code(s): N32.89 - OTHER SPECIFIED DISORDERS OF BLADDER (3) Hypertension Code(s): I10 - ESSENTIAL (PRIMARY) HYPERTENSION (4) Large bowel obstruction Code(s): K56.609 - UNSP INTESTNL OBST, UNSP TO PARTIAL VERSUS COMPLETE OBST (5) Rectal mass Code(s): K62.9 - DISEASE OF ANUS AND RECTUM, UNSPECIFIED (6) Weight loss, non-intentional Code(s): R63.4 - ABNORMAL WEIGHT LOSS (7) Old cerebrovascular accident (CVA) without late effect Code(s): Z86.73 - PRSNL HX OF TIA (TIA), AND CEREB INFRC W/O RESID DEFICITS
--- NOTE | 2017-10-16 14:17 | PN ---
Progress Note (short form) - Note Progress Note: Patient seen. Doing well on POD#2 after laprotomy + colostomy + cysto/stent under GETA. Dilaudid PLASTICS HEAT WELDER helping. Starting clears. Today pt is c/o intermittent pain being succefully rxd PLASTICS HEAT WELDER No sig pruritis/sedation. Plan: cont present managment. Likely d/c electronic warfare technical tomorrow if diet progressing without problems.
[2017-10-16] MEDS: SODIUM CHLORIDE 0.45%/POT 20 MEQ/1,000 ML INFUS.BAG IV SCH (16:35)
--- NOTE | 2017-10-16 17:45 | PN ---
Progress Note (short form) - Note Progress Note: Seen and examined chart reviewed tolerating diet, pain controlled Constitutional: Yes: Well Nourished, No Distress, Calm Eyes: Yes: WNL, Conjunctiva Clear, EOM Intact HENT: Yes: Atraumatic, Normocephalic Neck: Yes: Supple, Trachea Midline Cardiovascular: Yes: Regular Rate and Rhythm Respiratory: Yes: Regular Gastrointestinal: incision+ ostomy bag+ Extremities: Yes: WNL Edema: No Neurological: Yes: Alert, Oriented Psychiatric: Yes: Alert, Oriented Last Vital Signs Temp Pulse Resp BP Pulse Ox 98.2 F 94 H 20 127/84 96 10/16/17 14:17 10/16/17 14:17 10/16/17 14:17 10/16/17 14:17 10/16/17 09:00 CBC, BMP 10/13/17 06:55 10/13/17 06:55 Current Medications Generic Name Dose Route Start Last Admin Trade Name Freq PRN Reason Stop Dose Admin Carvedilol 12.5 mg 10/16/17 11:00 10/16/17 11:43 Coreg - PO 12.5 mg BID AJ Administration Heparin Sodium (Porcine) 5,000 unit 10/15/17 11:00 10/16/17 10:14 Heparin - SQ 5,000 unit BID AJ Administration Hydromorphone HCl 10 mg 10/14/17 11:18 Dilaudid Land Classifier - RN ACLS 10/21/17 09:46 RN ACLS AJ Protocol Potassium Chloride/Sodium Chloride 20 meq in 1,000 mls @ 100 mls/hr 10/14/17 11:18 10/16/17 16:35 1/2ns+20meq Kcl IV Not Given ASDIR AJ Ondansetron HCl 4 mg 10/14/17 11:18 Zofran Injection IVPUSH Q6H PRN NAUSEA AND/OR VOMITING Ondansetron HCl 4 mg 10/14/17 11:18 Zofran Injection IVPUSH Q4H PRN NAUSEA AND/OR VOMITING Witch Adela/Glycerin 1 pad 10/14/17 11:18 Tucks Pads - TP Q4H PRN 47 y/o patient with Carcinoma of rectosigmoid colon, with metastasis, to liver and lung. 1)Exploratory laparotomy,. 2) peritoneal biopsy. 3)wedge biopsy of liver,. 4 )Transverse colostomy. for port on saturday Path noted. Requested further tests pain control, dvt ppx will follow Problem List - Problems (1) Anemia due to blood loss, chronic Code(s): D50.0 - IRON DEFICIENCY ANEMIA SECONDARY TO BLOOD LOSS (CHRONIC) (2) Rectal mass Code(s): K62.9 - DISEASE OF ANUS AND RECTUM, UNSPECIFIED (3) Perirectal abscess Code(s): K61.1 - RECTAL ABSCESS (4) Large bowel obstruction Code(s): K56.609 - UNSP INTESTNL OBST, UNSP TO PARTIAL VERSUS COMPLETE OBST (5) Weight loss, non-intentional Code(s): R63.4 - ABNORMAL WEIGHT LOSS
[2017-10-17] MEDS: HYDROmorphone *PCA* 10MG/50ML DISP.SYRIN PCA SCH ×2 (07:13→16:39)
[2017-10-17] MEDS ORDERED: PT OWN MED DRAWER 7, Y5N ONE (09:27)
--- NOTE | 2017-10-17 09:28 | PN ---
Progress Note (short form) - Note Progress Note: Seen and examined chart reviewed tolerating diet, pain controlled Constitutional: Yes: Well Nourished, No Distress, Calm Eyes: Yes: WNL, Conjunctiva Clear, EOM Intact HENT: Yes: Atraumatic, Normocephalic Neck: Yes: Supple, Trachea Midline Cardiovascular: Yes: Regular Rate and Rhythm Respiratory: Yes: Regular Gastrointestinal: incision+ ostomy bag+ Extremities: Yes: WNL Edema: No Neurological: Yes: Alert, Oriented Psychiatric: Yes: Alert, Oriented Last Vital Signs Temp Pulse Resp BP Pulse Ox 98.0 F 93 H 18 144/70 98 10/17/17 06:00 10/17/17 07:13 10/17/17 07:13 10/17/17 07:13 10/16/17 21:00 CBC, BMP 10/13/17 06:55 10/13/17 06:55 Current Medications Generic Name Dose Route Start Last Admin Trade Name Freq PRN Reason Stop Dose Admin Carvedilol 12.5 mg 10/16/17 11:00 10/16/17 21:35 Coreg - PO 12.5 mg BID AJ Administration Heparin Sodium (Porcine) 5,000 unit 10/15/17 11:00 10/16/17 21:35 Heparin - SQ 5,000 unit BID AJ Administration Hydromorphone HCl 10 mg 10/14/17 11:18 10/17/17 07:13 Dilaudid Billboard Poster - METAL FLOORING INSTALLER 10/21/17 09:46 10 mg METAL FLOORING INSTALLER AJ Administration Protocol Potassium Chloride/Sodium Chloride 20 meq in 1,000 mls @ 100 mls/hr 10/14/17 11:18 10/16/17 16:35 1/2ns+20meq Kcl IV Not Given ASDIR AJ Ondansetron HCl 4 mg 10/14/17 11:18 Zofran Injection IVPUSH Q6H PRN NAUSEA AND/OR VOMITING Ondansetron HCl 4 mg 10/14/17 11:18 Zofran Injection IVPUSH Q4H PRN NAUSEA AND/OR VOMITING Witch Adela/Glycerin 1 pad 10/14/17 11:18 Tucks Pads - TP Q4H PRN 47 y/o patient with Carcinoma of rectosigmoid colon, with metastasis, to liver and lung. 1)Exploratory laparotomy,. 2) peritoneal biopsy. 3)wedge biopsy of liver,. 4 )Transverse colostomy. for port tomorrow Path noted. Requested further tests pain control, dvt ppx will follow Problem List - Problems (1) Anemia due to blood loss, chronic Code(s): D50.0 - IRON DEFICIENCY ANEMIA SECONDARY TO BLOOD LOSS (CHRONIC) (2) Rectal mass Code(s): K62.9 - DISEASE OF ANUS AND RECTUM, UNSPECIFIED (3) Perirectal abscess Code(s): K61.1 - RECTAL ABSCESS (4) Large bowel obstruction Code(s): K56.609 - UNSP INTESTNL OBST, UNSP TO PARTIAL VERSUS COMPLETE OBST (5) Weight loss, non-intentional Code(s): R63.4 - ABNORMAL WEIGHT LOSS
[2017-10-17] MEDS: CARVEDILOL 12.5 MG TABLET (FP) PO SCH ×2 (09:36→21:28)
[2017-10-17] MEDS: HEPARIN NA (PORCINE) 5,000 UNITS/ML 1ML VIAL SQ SCH ×2 (09:36→21:42)
--- NOTE | 2017-10-17 09:52 | PN ---
Progress Note (short form) - Note Progress Note: pod # 3 no complains having fever 101 now denies pain. on certified optician pump Vital Signs Temp 98.0 F 10/17/17 06:00 Pulse 98 H 10/17/17 09:13 Resp 16 10/17/17 09:13 BP 145/100 10/17/17 09:13 Pulse Ox 98 10/16/17 21:00 Intake & Output 10/16/17 10/16/17 10/17/17 11:59 23:59 11:59 Intake Total 3539 718 9495 Output Total 600 Balance 1062 107 6859 Intake: IV 1000 1000 1/2NS+20MEQ KCL 20 meq In 1000 1000 1,000 ml @ 100 mls/hr IV ASDIR [facility] Rx#: [id number] Oral 200 860 300 Output: Urine 600 Void 600 Other: Voiding Method Toilet Urinal Urinal # Unmeasured Voids Void 1 Bowel Movement No No # Bowel Movements 1 Active Medications Carvedilol (Coreg -) 12.5 mg PO BID [facility] Last Admin: 10/17/17 09:36 Dose: 12.5 mg Heparin Sodium (Porcine) (Heparin -) 5,000 unit SQ BID [facility] Last Admin: 10/17/17 09:36 Dose: 5,000 unit Hydromorphone HCl (Dilaudid Reinforced Steel Placing Supervisor -) 10 mg ARNP ARNP [facility] PRN Reason: Protocol Stop: 10/21/17 09:46 Last Admin: 10/17/17 07:13 Dose: 10 mg Potassium Chloride/Sodium Chloride (1/2ns+20meq Kcl) 20 meq in 1,000 mls @ 100 mls/hr IV ASDIR [facility] Last Admin: 10/16/17 16:35 Dose: Not Given Ondansetron HCl (Zofran Injection) 4 mg IVPUSH Q6H PRN PRN Reason: NAUSEA AND/OR VOMITING Ondansetron HCl (Zofran Injection) 4 mg IVPUSH Q4H PRN PRN Reason: NAUSEA AND/OR VOMITING Witch Adela/Glycerin (Tucks Pads -) 1 pad TP Q4H PRN CBC, BMP 10/13/17 06:55 10/13/17 06:55 Physical Exam Constitutional: comfortable/ no distress Neck: Yes: Supple, Cardiovascular: Yes: Regular Rate and Rhythm Respiratory: Yes: clear to auscultation Gastrointestinal: Yes: Soft. Edema: No Neurological: Yes: alert/ awake Assessment/Plan pod # 3 s/p colostomy metastatic adenocarcinoma- advanced htn h/o cva post op fever tumour fever ? star labs/ cultures/cxr ordered i/d consult will follow discussed with Dr. Stapleton- Have to postpone port placement Problem List - Problems (1) Anemia due to blood loss, chronic Code(s): D50.0 - IRON DEFICIENCY ANEMIA SECONDARY TO BLOOD LOSS (CHRONIC) (2) Bladder wall thickening Code(s): N32.89 - OTHER SPECIFIED DISORDERS OF BLADDER (3) Hypertension Code(s): I10 - ESSENTIAL (PRIMARY) HYPERTENSION (4) Large bowel obstruction Code(s): K56.609 - UNSP INTESTNL OBST, UNSP TO PARTIAL VERSUS COMPLETE OBST (5) Rectal mass Code(s): K62.9 - DISEASE OF ANUS AND RECTUM, UNSPECIFIED (6) Weight loss, non-intentional Code(s): R63.4 - ABNORMAL WEIGHT LOSS (7) Old cerebrovascular accident (CVA) without late effect Code(s): Z86.73 - PRSNL HX OF TIA (TIA), AND CEREB INFRC W/O RESID DEFICITS
--- NOTE | 2017-10-17 10:00 | PN ---
Progress Note, Physician - Current Medication List Current Medications: Active Medications Carvedilol (Coreg -) 12.5 mg PO BID [facility] Last Admin: 10/17/17 09:36 Dose: 12.5 mg Heparin Sodium (Porcine) (Heparin -) 5,000 unit SQ BID [facility] Last Admin: 10/17/17 09:36 Dose: 5,000 unit Hydromorphone HCl (Dilaudid Hearing Therapist -) 10 mg CHURN OPERATOR CHURN OPERATOR [facility] PRN Reason: Protocol Stop: 10/21/17 09:46 Last Admin: 10/17/17 07:13 Dose: 10 mg Potassium Chloride/Sodium Chloride (1/2ns+20meq Kcl) 20 meq in 1,000 mls @ 100 mls/hr IV ASDIR [facility] Last Admin: 10/16/17 16:35 Dose: Not Given Ondansetron HCl (Zofran Injection) 4 mg IVPUSH Q6H PRN PRN Reason: NAUSEA AND/OR VOMITING Ondansetron HCl (Zofran Injection) 4 mg IVPUSH Q4H PRN PRN Reason: NAUSEA AND/OR VOMITING Witch Adela/Glycerin (Tucks Pads -) 1 pad TP Q4H PRN - Objective Vital Signs: Vital Signs Temperature 98.0 F 10/17/17 06:00 Pulse Rate 98 H 10/17/17 09:13 Respiratory Rate 16 10/17/17 09:13 Blood Pressure 145/100 10/17/17 09:13 O2 Sat by Pulse Oximetry (%) 98 10/16/17 21:00 Labs: CBC, BMP 10/13/17 06:55 10/13/17 06:55 INR, PTT INR 1.19 (0.82-1.09) H 10/14/17 06:00 Problem List - Problems (1) Perirectal abscess Code(s): K61.1 - RECTAL ABSCESS (2) Diarrhea Code(s): R19.7 - DIARRHEA, UNSPECIFIED Qualifiers: Diarrhea type: unspecified type Qualified Code(s): R19.7 - Diarrhea, unspecified (3) Hypertension Code(s): I10 - ESSENTIAL (PRIMARY) HYPERTENSION Assessment/Plan Abdominal wound is clean, colostomy bad with stools. G.I. with normal function. Progress to regular diet. Plan : To place portacath tomorrow. Patient is aware. Carcinoma of the rectum, circumferential, with involvement of the anterior bladder neck and pelvis, , Eduar pouch , (positive biopsy), and metastasis to liver. Patient to receive chemotherapy. Locally advanced with systemic metastasis, liver and ? lung. Prognosis is poor.
[2017-10-17] MEDS: SODIUM CHLORIDE 0.45%/POT 20 MEQ/1,000 ML INFUS.BAG IV SCH (10:54)
[2017-10-17 11:37] LABS: BASO % 0.2 % (0-2.0); EOS % 0.2 % (0-4.5); HEMATOCRIT 32.9 % (35.4-49); HEMOGLOBIN 10.7 GM/dL (11.7-16.9); LYMPH % 6.2 % (8-40); MCH 26.4 pg (25.7-33.7); MCHC 32.4 g/dl (32.0-35.9); MEAN CELL VOLUME 81.4 fl (80-96); MEAN PLT VOLUME 7.5 fl (7.5-11.1); NEUT % 86.4 % (42.8-82.8); PLATELET COUNT 293 K/MM3 (134-434); RBC 4.04 M/mm3 (4.00-5.60); RDW 15.8 % (11.9-15.9); WHITE BLOOD COUNT 15.9 K/mm3 (4.0-10.0)
[2017-10-17 12:02] LABS: ALBUMIN 2.2 g/dl (3.4-5.0); ANION GAP 7 (8-16); BLOOD UREA NITROGEN 7 mg/dL (7-18); CALCIUM 7.4 mg/dL (8.5-10.1); CHLORIDE 101 mmol/L (98-107); CO2 27 mmol/L (21-32); CREATININE 0.7 mg/dL (0.7-1.3); GLUCOSE,RANDOM 92 mg/dL (74-106); POTASSIUM 4.3 mmol/L (3.5-5.1); SGOT/AST 13 U/L (15-37); SGPT/ALT 18 U/L (12-78); SODIUM 135 mmol/L (136-145)
[2017-10-17 12:04] LABS: ALK PHOS 127 U/L (45-117); BILIRUBIN,TOTAL 1.1 mg/dL (0.2-1.0); TOT PROT 5.5 g/dl (6.4-8.2)
--- NOTE | 2017-10-17 12:27 | PN ---
Progress Note (short form) - Note Progress Note: Denies shortness of breath or chest pain. No cough or wheezing. Intake & Output 10/14/17 10/15/17 10/16/17 10/17/17 23:59 23:59 23:59 23:59 Intake Total 2575 2650 2060 1300 Output Total 2160 580 600 Balance 415 2070 1460 1300 Last Vital Signs Temp Pulse Resp BP Pulse Ox 98.0 F 98 H 16 145/100 98 10/17/17 06:00 10/17/17 09:13 10/17/17 09:13 10/17/17 09:13 10/16/17 21:00 Active Medications Carvedilol (Coreg -) 12.5 mg PO BID [facility] Last Admin: 10/17/17 09:36 Dose: 12.5 mg HCTZ/Losartan Potassium (Hyzaar -) 1 tab PO DAILY [facility] Heparin Sodium (Porcine) (Heparin -) 5,000 unit SQ BID [facility] Last Admin: 10/17/17 09:36 Dose: 5,000 unit Potassium Chloride/Sodium Chloride (1/2ns+20meq Kcl) 20 meq in 1,000 mls @ 100 mls/hr IV ASDIR [facility] Last Admin: 10/17/17 10:54 Dose: 100 mls/hr Ondansetron HCl (Zofran Injection) 4 mg IVPUSH Q6H PRN PRN Reason: NAUSEA AND/OR VOMITING Ondansetron HCl (Zofran Injection) 4 mg IVPUSH Q4H PRN PRN Reason: NAUSEA AND/OR VOMITING Witch Adela/Glycerin (Tucks Pads -) 1 pad TP Q4H PRN Gen: NAD at rest Heart: RRR Lung: decreased breath sounds at the bases Abd: soft, nontender Ext: no edema Laboratory Results - last 24 hr 10/17/17 10/17/17 11:17 11:17 WBC 15.9 H D RBC 4.04 Hgb 10.7 L Hct 32.9 L MCV 81.4 MCH 26.4 MCHC 32.4 RDW 15.8 Plt Count 293 D MPV 7.5 Neutrophils % 86.4 H D Lymphocytes % 6.2 L D Monocytes % 7.0 Eosinophils % 0.2 Basophils % 0.2 Sodium 135 L Potassium 4.3 Chloride 101 Carbon Dioxide 27 Anion Gap 7 L BUN 7 Creatinine 0.7 D Creat Clearance w eGFR > 60 Random Glucose 92 Calcium 7.4 L Total Bilirubin 1.1 H D AST 13 L D ALT 18 D Alkaline Phosphatase 127 H D Total Protein 5.5 L Albumin 2.2 L Problem List - Problems (1) Rectal mass Code(s): K62.9 - DISEASE OF ANUS AND RECTUM, UNSPECIFIED (2) Hypertension Code(s): I10 - ESSENTIAL (PRIMARY) HYPERTENSION (3) Lung nodules Code(s): R91.8 - OTHER NONSPECIFIC ABNORMAL FINDING OF LUNG FIELD IMP: Metastatic Invasive Adenocarcinoma Rectal Cancer Liver metastatis Probable Lung metastatis HTN PLAN: IVF For port placement VTE prophylaxis O2 as needed Dr Whitaker
[2017-10-17] MEDS: LOSARTAN 50MG/HCTZ 12.5MG 1 TAB (FP) PO SCH (12:56)
--- NOTE | 2017-10-17 13:26 | PN ---
Progress Note (short form) - Note Progress Note: Anesthesia DIGITAL COORDINATOR follow up, POD#4 S/P laparotmy with colostomy, for metastatic rectal cancer. Started po diet today, doing fine. VSS. Ambulating. Will D/C DIGITAL COORDINATOR. Should start OP analgetics. Signed off.
--- NOTE | 2017-10-17 16:16 | PN ---
Progress Note, Physician History of Present Illness: POD #4 exploratory laparotomy/ colostomy Temp 101 now 100 No focal complaint No c/o fever/ chills No abdominal pain No chest pain/ dyspnea/ cough No dysuria - Current Medication List Current Medications: Active Medications Carvedilol (Coreg -) 12.5 mg PO BID [facility] Last Admin: 10/17/17 09:36 Dose: 12.5 mg HCTZ/Losartan Potassium (Hyzaar -) 1 tab PO DAILY [facility] Last Admin: 10/17/17 12:56 Dose: 1 tab Heparin Sodium (Porcine) (Heparin -) 5,000 unit SQ BID [facility] Last Admin: 10/17/17 09:36 Dose: 5,000 unit Potassium Chloride/Sodium Chloride (1/2ns+20meq Kcl) 20 meq in 1,000 mls @ 100 mls/hr IV ASDIR [facility] Last Admin: 10/17/17 10:54 Dose: 100 mls/hr Ondansetron HCl (Zofran Injection) 4 mg IVPUSH Q6H PRN PRN Reason: NAUSEA AND/OR VOMITING Ondansetron HCl (Zofran Injection) 4 mg IVPUSH Q4H PRN PRN Reason: NAUSEA AND/OR VOMITING Oxycodone HCl (Roxicodone -) 5 mg PO Q4H PRN Witch Adela/Glycerin (Tucks Pads -) 1 pad TP Q4H PRN - Objective Vital Signs: Vital Signs Temperature 100.0 F H 10/17/17 14:34 Pulse Rate 94 H 10/17/17 14:34 Respiratory Rate 20 10/17/17 14:34 Blood Pressure 129/88 10/17/17 14:34 O2 Sat by Pulse Oximetry (%) 98 10/17/17 09:00 Constitutional: Yes: No Distress Eyes: Yes: Conjunctiva Clear Cardiovascular: Yes: Regular Rate and Rhythm, S1, S2 Respiratory: Yes: Diminished Gastrointestinal: Yes: Normal Bowel Sounds, Soft, Other (mishel in place, abdominal wound No erythema/ drainage). No: Tenderness Extremities: No: Calf Tenderness Labs: CBC, BMP 10/17/17 11:17 10/17/17 11:17 INR, PTT INR 1.19 (0.82-1.09) H 10/14/17 06:00 Assessment/Plan Post op fever ? source Post op day #4 laparotomy, colostomy Await c/s OOB in chair/ incentive spirometry
[2017-10-17] MEDS ORDERED: PIPERACILLIN/TAZOB 3.375 GM 50 ML IVPB SCH (18:00)
[2017-10-17] MEDS: PIPERACILLIN/TAZOB 3.375 GM 3.375 GM in DEXTROSE 5%-WATER - 100 ML IVPB SCH (18:11)
[2017-10-17] MEDS: METRONIDAZOLE PREMIXED IVPB 250 MG/50 ML MG IVPB SCH (18:11)
[2017-10-17] MEDS: ACETAMINOPHEN 325 MG TABLET (FP) PO PRN (19:29)
[2017-10-17] MEDS: oxyCODONE HCL 5 MG TABLET PO PRN (21:27)
[2017-10-18] MEDS: SODIUM CHLORIDE 0.45%/POT 20 MEQ/1,000 ML INFUS.BAG IV SCH (00:49)
[2017-10-18] MEDS: PIPERACILLIN/TAZOB 3.375 GM 3.375 GM in DEXTROSE 5%-WATER - 100 ML IVPB SCH ×3 (02:21→18:00)
[2017-10-18] MEDS: METRONIDAZOLE PREMIXED IVPB 250 MG/50 ML MG IVPB SCH ×3 (02:22→18:01)
[2017-10-18] MEDS: LOSARTAN 50MG/HCTZ 12.5MG 1 TAB (FP) PO SCH (09:07)
[2017-10-18] MEDS ORDERED: PT OWN MED DRAWER 7, Y5N ONE ×2 (09:07→16:29)
[2017-10-18] MEDS: oxyCODONE HCL 5 MG TABLET PO PRN ×2 (09:07→17:47)
[2017-10-18] MEDS: CARVEDILOL 12.5 MG TABLET (FP) PO SCH ×2 (09:07→22:15)
--- NOTE | 2017-10-18 10:19 | PN ---
Progress Note, Physician - Current Medication List Current Medications: Active Medications Acetaminophen (Tylenol -) 650 mg PO Q4H PRN PRN Reason: FEVER Last Admin: 10/17/17 19:29 Dose: 650 mg Carvedilol (Coreg -) 12.5 mg PO BID [facility] Last Admin: 10/18/17 09:07 Dose: 12.5 mg HCTZ/Losartan Potassium (Hyzaar -) 1 tab PO DAILY [facility] Last Admin: 10/18/17 09:07 Dose: 1 tab Heparin Sodium (Porcine) (Heparin -) 5,000 unit SQ BID [facility] Last Admin: 10/17/17 21:42 Dose: Not Given Potassium Chloride/Sodium Chloride (1/2ns+20meq Kcl) 20 meq in 1,000 mls @ 100 mls/hr IV ASDIR [facility] Last Admin: 10/18/17 00:49 Dose: 100 mls/hr Metronidazole (Flagyl 250mg Premixed Ivpb -) 250 mg in 50 mls @ 50 mls/hr IVPB Q8H-IV [facility] Last Admin: 10/18/17 02:22 Dose: 50 mls/hr Piperacillin Sod/Tazobactam (Sod 3.375 gm/ Dextrose) 100 mls @ 200 mls/hr IVPB Q8H-IV [facility] Last Admin: 10/18/17 02:21 Dose: 200 mls/hr Ondansetron HCl (Zofran Injection) 4 mg IVPUSH Q6H PRN PRN Reason: NAUSEA AND/OR VOMITING Ondansetron HCl (Zofran Injection) 4 mg IVPUSH Q4H PRN PRN Reason: NAUSEA AND/OR VOMITING Oxycodone HCl (Roxicodone -) 5 mg PO Q4H PRN Last Admin: 10/18/17 09:07 Dose: 5 mg Witch Adela/Glycerin (Tucks Pads -) 1 pad TP Q4H PRN - Objective Vital Signs: Vital Signs Temperature 98.6 F 10/18/17 09:00 Pulse Rate 91 H 10/18/17 09:00 Respiratory Rate 18 10/18/17 09:00 Blood Pressure 143/95 10/18/17 09:00 O2 Sat by Pulse Oximetry (%) 97 10/17/17 21:00 Labs: CBC, BMP 10/17/17 11:17 10/17/17 11:17 INR, PTT INR 1.19 (0.82-1.09) H 10/14/17 06:00 Problem List - Problems (1) Perirectal abscess Code(s): K61.1 - RECTAL ABSCESS (2) Diarrhea Code(s): R19.7 - DIARRHEA, UNSPECIFIED Qualifiers: Diarrhea type: unspecified type Qualified Code(s): R19.7 - Diarrhea, unspecified (3) Hypertension Code(s): I10 - ESSENTIAL (PRIMARY) HYPERTENSION Assessment/Plan Patient has elevated WBC. Will hold placement of portacath, to rule out infection / sepsis , in the presence of leucocytosis.. Continue oncolgy assessment and treatment. Radiation oncology consult.
--- NOTE | 2017-10-18 10:23 | PN ---
Progress Note (short form) - Note Progress Note: comfortable ID consult is noted and appreciated On broad-spectrum antibiotics Positive culture today Patient denies pain Vital Signs Temp 98.6 F 10/18/17 09:00 Pulse 91 H 10/18/17 09:00 Resp 18 10/18/17 09:00 BP 143/95 10/18/17 09:00 Pulse Ox 97 10/17/17 21:00 Intake & Output 10/17/17 10/17/17 10/18/17 11:59 23:59 11:59 Intake Total 1480 2250 1350 Output Total 1750 Balance 5615 445 4082 Intake: IV 1000 1200 1200 1/2NS+20MEQ KCL 20 meq In 1000 1200 1200 1,000 ml @ 100 mls/hr IV ASDIR [facility] Rx#: [id number] IVPB 150 150 Oral 480 900 Output: Urine 1750 Void 1750 Other: Voiding Method Toilet Urinal Bowel Movement No No No # Bowel Movements 1 Active Medications Acetaminophen (Tylenol -) 650 mg PO Q4H PRN PRN Reason: FEVER Last Admin: 10/17/17 19:29 Dose: 650 mg Carvedilol (Coreg -) 12.5 mg PO BID [facility] Last Admin: 10/18/17 09:07 Dose: 12.5 mg HCTZ/Losartan Potassium (Hyzaar -) 1 tab PO DAILY [facility] Last Admin: 10/18/17 09:07 Dose: 1 tab Heparin Sodium (Porcine) (Heparin -) 5,000 unit SQ BID [facility] Last Admin: 10/17/17 21:42 Dose: Not Given Potassium Chloride/Sodium Chloride (1/2ns+20meq Kcl) 20 meq in 1,000 mls @ 100 mls/hr IV ASDIR [facility] Last Admin: 10/18/17 00:49 Dose: 100 mls/hr Metronidazole (Flagyl 250mg Premixed Ivpb -) 250 mg in 50 mls @ 50 mls/hr IVPB Q8H-IV [facility] Last Admin: 10/18/17 02:22 Dose: 50 mls/hr Piperacillin Sod/Tazobactam (Sod 3.375 gm/ Dextrose) 100 mls @ 200 mls/hr IVPB Q8H-IV [facility] Last Admin: 10/18/17 02:21 Dose: 200 mls/hr Ondansetron HCl (Zofran Injection) 4 mg IVPUSH Q6H PRN PRN Reason: NAUSEA AND/OR VOMITING Ondansetron HCl (Zofran Injection) 4 mg IVPUSH Q4H PRN PRN Reason: NAUSEA AND/OR VOMITING Oxycodone HCl (Roxicodone -) 5 mg PO Q4H PRN Last Admin: 10/18/17 09:07 Dose: 5 mg Witch Adela/Glycerin (Tucks Pads -) 1 pad TP Q4H PRN CBC, BMP 10/17/17 11:17 10/17/17 11:17 Microbiology 10/17/17 11:25 Blood Culture - Preliminary Blood - Peripheral Venous Pending Organism Physical Exam Constitutional: comfortable/ no distress Neck: Yes: Supple, Cardiovascular: Yes: Regular Rate and Rhythm Respiratory: Yes: clear to auscultation Gastrointestinal: Yes: Soft. Edema: No Neurological: Yes: alert/ awake Assessment/Plan pod # 5 s/p colostomy metastatic adenocarcinoma- advanced htn h/o cva post op fever tumour fever ? antibiotics follow-up cultures Monitor blood pressure Continue present care Port placement has been postponed--due to fever Discussed with nursing staff Will follow Problem List - Problems (1) Anemia due to blood loss, chronic Code(s): D50.0 - IRON DEFICIENCY ANEMIA SECONDARY TO BLOOD LOSS (CHRONIC) (2) Bladder wall thickening Code(s): N32.89 - OTHER SPECIFIED DISORDERS OF BLADDER (3) Hypertension Code(s): I10 - ESSENTIAL (PRIMARY) HYPERTENSION (4) Large bowel obstruction Code(s): K56.609 - UNSP INTESTNL OBST, UNSP TO PARTIAL VERSUS COMPLETE OBST (5) Rectal mass Code(s): K62.9 - DISEASE OF ANUS AND RECTUM, UNSPECIFIED (6) Weight loss, non-intentional Code(s): R63.4 - ABNORMAL WEIGHT LOSS (7) Old cerebrovascular accident (CVA) without late effect Code(s): Z86.73 - PRSNL HX OF TIA (TIA), AND CEREB INFRC W/O RESID DEFICITS
[2017-10-18] MEDS: POTASSIUM CHLORIDE 20 MEQ in SODIUM CHLORIDE 0.45% 1,000 ML IVPB SCH ×2 (12:44→22:15)
[2017-10-18 13:09] LABS: ALBUMIN 2.3 g/dl (3.4-5.0); ANION GAP 10 (8-16); BLOOD UREA NITROGEN 11 mg/dL (7-18); CALCIUM 7.7 mg/dL (8.5-10.1); CHLORIDE 100 mmol/L (98-107); CO2 25 mmol/L (21-32); GLUCOSE,RANDOM 118 mg/dL (74-106); POTASSIUM 4.4 mmol/L (3.5-5.1); SGOT/AST 13 U/L (15-37); SGPT/ALT 19 U/L (12-78); SODIUM 135 mmol/L (136-145)
[2017-10-18 13:12] LABS: ALK PHOS 145 U/L (45-117); BILIRUBIN,TOTAL 1.3 mg/dL (0.2-1.0); TOT PROT 5.9 g/dl (6.4-8.2)
--- NOTE | 2017-10-18 17:00 | PN ---
Progress Note, Physician History of Present Illness: Blood c/s [facility]CC x 1 bottle Temps down Afebrile No c/o abdominal pain No c/o fever/chills - Current Medication List Current Medications: Active Medications Acetaminophen (Tylenol -) 650 mg PO Q4H PRN PRN Reason: FEVER Last Admin: 10/17/17 19:29 Dose: 650 mg Carvedilol (Coreg -) 12.5 mg PO BID [facility] Last Admin: 10/18/17 09:07 Dose: 12.5 mg HCTZ/Losartan Potassium (Hyzaar -) 1 tab PO DAILY [facility] Last Admin: 10/18/17 09:07 Dose: 1 tab Heparin Sodium (Porcine) (Heparin -) 5,000 unit SQ BID [facility] Last Admin: 10/17/17 21:42 Dose: Not Given Metronidazole (Flagyl 250mg Premixed Ivpb -) 250 mg in 50 mls @ 50 mls/hr IVPB Q8H-IV [facility] Last Admin: 10/18/17 11:36 Dose: 50 mls/hr Piperacillin Sod/Tazobactam (Sod 3.375 gm/ Dextrose) 100 mls @ 200 mls/hr IVPB Q8H-IV [facility] Last Admin: 10/18/17 11:36 Dose: 200 mls/hr Potassium Chloride 20 meq/ (Sodium Chloride) 1,010 mls @ 100 mls/hr IVPB Q10H [facility] Last Admin: 10/18/17 12:44 Dose: 100 mls/hr Ondansetron HCl (Zofran Injection) 4 mg IVPUSH Q6H PRN PRN Reason: NAUSEA AND/OR VOMITING Ondansetron HCl (Zofran Injection) 4 mg IVPUSH Q4H PRN PRN Reason: NAUSEA AND/OR VOMITING Oxycodone HCl (Roxicodone -) 5 mg PO Q4H PRN Last Admin: 10/18/17 09:07 Dose: 5 mg Witch Adela/Glycerin (Tucks Pads -) 1 pad TP Q4H PRN - Objective Vital Signs: Vital Signs Temperature 98.1 F 10/18/17 14:34 Pulse Rate 88 10/18/17 14:34 Respiratory Rate 18 10/18/17 14:34 Blood Pressure 127/84 10/18/17 14:34 O2 Sat by Pulse Oximetry (%) 98 10/18/17 09:00 Constitutional: Yes: No Distress, Cachectic Eyes: Yes: Conjunctiva Clear Cardiovascular: Yes: Regular Rate and Rhythm, S1, S2 Respiratory: Yes: CTA Bilaterally Gastrointestinal: Yes: Normal Bowel Sounds, Soft, Other (Surgical wound with mishel in place. No wound erythema/ drainage. + ostomy with soft stool). No: Tenderness Edema: No Labs: CBC, BMP 10/17/17 11:17 10/18/17 12:40 INR, PTT INR 1.19 (0.82-1.09) H 10/14/17 06:00 Assessment/Plan Post op fever + BC GPCC ? intrabaominal source Post op day #5 laparotomy, colostomy Await blood c/s Continue empiric zosyn/ flagyl
--- NOTE | 2017-10-18 20:24 | PN ---
Progress Note (short form) - Note Progress Note: Radiation Oncology (full consult to follow) Pt seen, chart and films reviewed. 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 Path confirms liver and peritoneal involvement and CT suggests lung mets. As he has been diverted, agree that he needs systemic tx now. Will reserve RT for palliation of bleeding or pain, or consolidation of residual disease if he has a remarkable response to systemic therapy. Plan for port placement when stable. Discussed with patient.
[2017-10-19] MEDS ORDERED: PT OWN MED DRAWER 7, Y5N ONE ×3 (00:52→18:05)
[2017-10-19] MEDS: PIPERACILLIN/TAZOB 3.375 GM 3.375 GM in DEXTROSE 5%-WATER - 100 ML IVPB SCH ×3 (01:10→18:32)
[2017-10-19] MEDS: METRONIDAZOLE PREMIXED IVPB 250 MG/50 ML MG IVPB SCH ×3 (01:10→18:32)
[2017-10-19] MEDS: POTASSIUM CHLORIDE 20 MEQ in SODIUM CHLORIDE 0.45% 1,000 ML IVPB SCH ×3 (01:11→18:56)
[2017-10-19] MEDS: oxyCODONE HCL 5 MG TABLET PO PRN ×2 (03:50→17:55)
[2017-10-19 08:13] LABS: BASO % 0.7 % (0-2.0); EOS % 0.6 % (0-4.5); HEMATOCRIT 30.4 % (35.4-49); LYMPH % 12.4 % (8-40); MCH 26.5 pg (25.7-33.7); MCHC 32.9 g/dl (32.0-35.9); MEAN CELL VOLUME 80.6 fl (80-96); MEAN PLT VOLUME 7.8 fl (7.5-11.1); MONO % 9.9 % (3.8-10.2); NEUT % 76.4 % (42.8-82.8); PLATELET COUNT 272 K/MM3 (134-434); RBC 3.77 M/mm3 (4.00-5.60); RDW 15.7 % (11.9-15.9); WHITE BLOOD COUNT 9.6 K/mm3 (4.0-10.0)
[2017-10-19] MEDS: SODIUM CHLORIDE 0.45%/POT 20 MEQ/1,000 ML INFUS.BAG IV SCH (08:56)
[2017-10-19] MEDS: CARVEDILOL 12.5 MG TABLET (FP) PO SCH ×2 (10:08→23:09)
[2017-10-19] MEDS: LOSARTAN 50MG/HCTZ 12.5MG 1 TAB (FP) PO SCH (10:09)
[2017-10-19] MEDS: HEPARIN NA (PORCINE) 5,000 UNITS/ML 1ML VIAL SQ SCH ×2 (10:09→23:09)
--- NOTE | 2017-10-19 10:49 | PN ---
Progress Note (short form) - Note Progress Note: comfortable denies pain afebrle wbc decreasing on broad spectrum abx Vital Signs Temp 98.6 F 10/19/17 10:00 Pulse 82 10/19/17 10:00 Resp 18 10/19/17 10:00 BP 114/73 10/19/17 10:00 Pulse Ox 98 10/18/17 21:00 Intake & Output 10/18/17 10/18/17 10/19/17 11:59 23:59 11:59 Intake Total 1350 2040 Output Total 850 1400 Balance 1350 1190 -1400 Intake: IV 1200 1200 1/2NS+20MEQ KCL 20 meq In 1200 1200 1,000 ml @ 100 mls/hr IV ASDIR [facility] Rx#: [id number] IVPB 150 300 Oral 540 Output: Urine 850 1400 Void 850 1400 Other: Voiding Method Urinal Urinal Bowel Movement No Yes: colostomy Yes: colostomy Active Medications Acetaminophen (Tylenol -) 650 mg PO Q4H PRN PRN Reason: FEVER Last Admin: 10/17/17 19:29 Dose: 650 mg Carvedilol (Coreg -) 12.5 mg PO BID [facility] Last Admin: 10/19/17 10:08 Dose: 12.5 mg HCTZ/Losartan Potassium (Hyzaar -) 1 tab PO DAILY [facility] Last Admin: 10/19/17 10:09 Dose: 1 tab Heparin Sodium (Porcine) (Heparin -) 5,000 unit SQ BID [facility] Last Admin: 10/19/17 10:09 Dose: 5,000 unit Metronidazole (Flagyl 250mg Premixed Ivpb -) 250 mg in 50 mls @ 50 mls/hr IVPB Q8H-IV [facility] Last Admin: 10/19/17 10:09 Dose: 50 mls/hr Piperacillin Sod/Tazobactam (Sod 3.375 gm/ Dextrose) 100 mls @ 200 mls/hr IVPB Q8H-IV [facility] Last Admin: 10/19/17 10:09 Dose: 200 mls/hr Potassium Chloride 20 meq/ (Sodium Chloride) 1,010 mls @ 100 mls/hr IVPB Q10H [facility] Last Admin: 10/19/17 01:11 Dose: 100 mls/hr Ondansetron HCl (Zofran Injection) 4 mg IVPUSH Q6H PRN PRN Reason: NAUSEA AND/OR VOMITING Ondansetron HCl (Zofran Injection) 4 mg IVPUSH Q4H PRN PRN Reason: NAUSEA AND/OR VOMITING Oxycodone HCl (Roxicodone -) 5 mg PO Q4H PRN Last Admin: 10/19/17 03:50 Dose: 5 mg Witch Adela/Glycerin (Tucks Pads -) 1 pad TP Q4H PRN CBC, BMP 10/19/17 07:00 10/18/17 12:40 Microbiology 10/17/17 11:25 Blood Culture - Preliminary Blood - Peripheral Venous Beta Hem Streptococcus Group C 10/17/17 11:17 Blood Culture - Preliminary Blood - Peripheral Venous NO GROWTH OBTAINED AFTER 24 HOURS, INCUBATION TO CONTINUE FOR 4 DAYS. Physical Exam Constitutional: comfortable/ no distress Neck: Yes: Supple, Cardiovascular: Yes: Regular Rate and Rhythm Respiratory: Yes: clear to auscultation Gastrointestinal: Yes: Soft. colostomy bag in place Edema: No Neurological: Yes: alert/ awake Assessment/Plan pod # 6 s/p colostomy metastatic adenocarcinoma- advanced htn h/o cva post op fever tumour fever ? antibiotics follow-up cultures--strep Monitor blood pressure Continue present care Port placement has been postponed-- Discussed with nursing staff/ today also Will follow Problem List - Problems (1) Anemia due to blood loss, chronic Code(s): D50.0 - IRON DEFICIENCY ANEMIA SECONDARY TO BLOOD LOSS (CHRONIC) (2) Bladder wall thickening Code(s): N32.89 - OTHER SPECIFIED DISORDERS OF BLADDER (3) Hypertension Code(s): I10 - ESSENTIAL (PRIMARY) HYPERTENSION (4) Large bowel obstruction Code(s): K56.609 - UNSP INTESTNL OBST, UNSP TO PARTIAL VERSUS COMPLETE OBST (5) Rectal mass Code(s): K62.9 - DISEASE OF ANUS AND RECTUM, UNSPECIFIED (6) Weight loss, non-intentional Code(s): R63.4 - ABNORMAL WEIGHT LOSS (7) Old cerebrovascular accident (CVA) without late effect Code(s): Z86.73 - PRSNL HX OF TIA (TIA), AND CEREB INFRC W/O RESID DEFICITS
--- NOTE | 2017-10-19 12:30 | PN ---
Progress Note, Physician - Current Medication List Current Medications: Active Medications Acetaminophen (Tylenol -) 650 mg PO Q4H PRN PRN Reason: FEVER Last Admin: 10/17/17 19:29 Dose: 650 mg Carvedilol (Coreg -) 12.5 mg PO BID [facility] Last Admin: 10/19/17 10:08 Dose: 12.5 mg HCTZ/Losartan Potassium (Hyzaar -) 1 tab PO DAILY [facility] Last Admin: 10/19/17 10:09 Dose: 1 tab Heparin Sodium (Porcine) (Heparin -) 5,000 unit SQ BID [facility] Last Admin: 10/19/17 10:09 Dose: 5,000 unit Metronidazole (Flagyl 250mg Premixed Ivpb -) 250 mg in 50 mls @ 50 mls/hr IVPB Q8H-IV [facility] Last Admin: 10/19/17 10:09 Dose: 50 mls/hr Piperacillin Sod/Tazobactam (Sod 3.375 gm/ Dextrose) 100 mls @ 200 mls/hr IVPB Q8H-IV [facility] Last Admin: 10/19/17 10:09 Dose: 200 mls/hr Potassium Chloride 20 meq/ (Sodium Chloride) 1,010 mls @ 100 mls/hr IVPB Q10H [facility] Last Admin: 10/19/17 11:41 Dose: Not Given Ondansetron HCl (Zofran Injection) 4 mg IVPUSH Q6H PRN PRN Reason: NAUSEA AND/OR VOMITING Ondansetron HCl (Zofran Injection) 4 mg IVPUSH Q4H PRN PRN Reason: NAUSEA AND/OR VOMITING Oxycodone HCl (Roxicodone -) 5 mg PO Q4H PRN Last Admin: 10/19/17 03:50 Dose: 5 mg Witch Adela/Glycerin (Tucks Pads -) 1 pad TP Q4H PRN - Objective Vital Signs: Vital Signs Temperature 98.6 F 10/19/17 10:00 Pulse Rate 82 10/19/17 10:00 Respiratory Rate 18 10/19/17 10:00 Blood Pressure 114/73 10/19/17 10:00 O2 Sat by Pulse Oximetry (%) 98 10/18/17 21:00 Labs: CBC, BMP 10/19/17 07:00 10/18/17 12:40 INR, PTT INR 1.19 (0.82-1.09) H 10/14/17 06:00 Problem List - Problems (1) Perirectal abscess Code(s): K61.1 - RECTAL ABSCESS (2) Diarrhea Code(s): R19.7 - DIARRHEA, UNSPECIFIED Qualifiers: Diarrhea type: unspecified type Qualified Code(s): R19.7 - Diarrhea, unspecified (3) Hypertension Code(s): I10 - ESSENTIAL (PRIMARY) HYPERTENSION Assessment/Plan Surgery: Abdominal wound is clean. Colostomy is functioning, Positive blood culture [facility] b strep. WBC is normal. Continue antibiotics,
--- NOTE | 2017-10-19 13:08 | PN ---
Progress Note (short form) - Note Progress Note: Denies shortness of breath or chest pain. No cough or wheezing. Intake & Output 10/16/17 10/17/17 10/18/17 10/19/17 23:59 23:59 23:59 23:59 Intake Total 2060 3730 3390 215 Output Total 600 2300 850 1400 Balance 1460 1430 2540 -1185 Last Vital Signs Temp Pulse Resp BP Pulse Ox 98.6 F 82 18 114/73 98 10/19/17 10:00 10/19/17 10:00 10/19/17 10:00 10/19/17 10:00 10/18/17 21:00 Active Medications Acetaminophen (Tylenol -) 650 mg PO Q4H PRN PRN Reason: FEVER Last Admin: 10/17/17 19:29 Dose: 650 mg Carvedilol (Coreg -) 12.5 mg PO BID [facility] Last Admin: 10/19/17 10:08 Dose: 12.5 mg HCTZ/Losartan Potassium (Hyzaar -) 1 tab PO DAILY [facility] Last Admin: 10/19/17 10:09 Dose: 1 tab Heparin Sodium (Porcine) (Heparin -) 5,000 unit SQ BID [facility] Last Admin: 10/19/17 10:09 Dose: 5,000 unit Metronidazole (Flagyl 250mg Premixed Ivpb -) 250 mg in 50 mls @ 50 mls/hr IVPB Q8H-IV [facility] Last Admin: 10/19/17 10:09 Dose: 50 mls/hr Piperacillin Sod/Tazobactam (Sod 3.375 gm/ Dextrose) 100 mls @ 200 mls/hr IVPB Q8H-IV [facility] Last Admin: 10/19/17 10:09 Dose: 200 mls/hr Potassium Chloride 20 meq/ (Sodium Chloride) 1,010 mls @ 100 mls/hr IVPB Q10H [facility] Last Admin: 10/19/17 11:41 Dose: Not Given Ondansetron HCl (Zofran Injection) 4 mg IVPUSH Q6H PRN PRN Reason: NAUSEA AND/OR VOMITING Ondansetron HCl (Zofran Injection) 4 mg IVPUSH Q4H PRN PRN Reason: NAUSEA AND/OR VOMITING Oxycodone HCl (Roxicodone -) 5 mg PO Q4H PRN Last Admin: 10/19/17 03:50 Dose: 5 mg Witch Adela/Glycerin (Tucks Pads -) 1 pad TP Q4H PRN Gen: NAD at rest Heart: RRR Lung: decreased breath sounds at the bases Abd: soft, nontender Ext: no edema Laboratory Results - last 24 hr 10/17/17 10/18/17 10/19/17 11:17 12:40 07:00 WBC 9.6 D RBC 3.77 L Hgb 10.0 L Hct 30.4 L MCV 80.6 MCH 26.5 MCHC 32.9 RDW 15.7 Plt Count 272 MPV 7.8 Neutrophils % 76.4 Lymphocytes % 12.4 D Monocytes % 9.9 Eosinophils % 0.6 D Basophils % 0.7 D Sodium 135 L Potassium 4.4 Chloride 100 Carbon Dioxide 25 Anion Gap 10 BUN 11 D Creatinine 1.0 D Creat Clearance w eGFR > 60 Random Glucose 118 H D Calcium 7.7 L Total Bilirubin 1.3 H AST 13 L ALT 19 Alkaline Phosphatase 145 H Total Protein 5.9 L Albumin 2.3 L VZV IgG Antibody 326 Problem List - Problems (1) Rectal mass Code(s): K62.9 - DISEASE OF ANUS AND RECTUM, UNSPECIFIED (2) Hypertension Code(s): I10 - ESSENTIAL (PRIMARY) HYPERTENSION (3) Lung nodules Code(s): R91.8 - OTHER NONSPECIFIC ABNORMAL FINDING OF LUNG FIELD IMP: Metastatic Invasive Adenocarcinoma Rectal Cancer Liver metastatis Probable Lung metastatis HTN PLAN: ABX Per ID Local wound care VTE prophylaxis O2 as needed Dr Whitaker
--- NOTE | 2017-10-19 18:36 | PN ---
Progress Note (short form) - Note Progress Note: POD #6 ambulating eating no complaints Vital Signs Period Temp Pulse Resp BP Sys/Bal Pulse Ox Last 24 Hr 98.3 F-99.1 F 67-82 18-20 114-133/73-93 98 cor-rrr lungs decreased bs at basesa abd soft, mishel intact, ostomy functioning ext no edema CBC, BMP 10/19/17 07:00 10/18/17 12:40 Microbiology 10/17/17 15:20 Urine - Urine Clean Catch Urine Culture - Preliminary Lactose Fermenting Neg Bacilli 10/17/17 11:17 Blood - Peripheral Venous Blood Culture - Preliminary NO GROWTH OBTAINED AFTER 48 HOURS, INCUBATION TO CONTINUE FOR 3 DAYS. 10/17/17 11:25 Blood - Peripheral Venous Blood Culture - Preliminary Beta Hem Streptococcus Group C 10/08/17 00:24 Blood - Peripheral Venous Blood Culture - Final NO GROWTH AFTER 5 DAYS INCUBATION 10/08/17 00:24 Blood - Peripheral Venous Blood Culture - Final NO GROWTH AFTER 5 DAYS INCUBATION 10/08/17 10:21 Stool Salmonella/Shigella Culture - Final Pseudomonas Species 10/08/17 10:21 Stool Campylobacter Culture - Final NO GROWTH OF CAMPYLOBACTER SPECIES OBTAINED 10/08/17 10:21 Stool Yersinia Culture - Final NO GROWTH OF YERSINIA SPECIES OBTAINED 10/08/17 10:21 Stool Vibrio Culture - Final NO GROWTH OF VIBRIO SPECIES OBTAINED 10/08/17 10:21 Stool Escherichia coli 0157 Culture - Final NO GROWTH OF E COLI 0157 OBTAINED 10/08/17 10:30 Urine - Urine Clean Catch Urine Culture - Final NO GROWTH OBTAINED 10/08/17 07:18 Stool Clostridium difficile Antigen (JOSÉ MIGUEL) - Final 10/08/17 07:18 Stool Clostridium difficile Toxin Assay - Final Current Medications Acetaminophen (Tylenol -) 650 mg PO Q4H PRN PRN Reason: FEVER Last Admin: 10/17/17 19:29 Dose: 650 mg Carvedilol (Coreg -) 12.5 mg PO BID [facility] Last Admin: 10/19/17 10:08 Dose: 12.5 mg HCTZ/Losartan Potassium (Hyzaar -) 1 tab PO DAILY [facility] Last Admin: 10/19/17 10:09 Dose: 1 tab Heparin Sodium (Porcine) (Heparin -) 5,000 unit SQ BID [facility] Last Admin: 10/19/17 10:09 Dose: 5,000 unit Metronidazole (Flagyl 250mg Premixed Ivpb -) 250 mg in 50 mls @ 50 mls/hr IVPB Q8H-IV [facility] Last Admin: 10/19/17 18:32 Dose: 50 mls/hr Piperacillin Sod/Tazobactam (Sod 3.375 gm/ Dextrose) 100 mls @ 200 mls/hr IVPB Q8H-IV [facility] Last Admin: 10/19/17 18:32 Dose: 200 mls/hr Potassium Chloride 20 meq/ (Sodium Chloride) 1,010 mls @ 100 mls/hr IVPB Q10H [facility] Last Admin: 10/19/17 11:41 Dose: Not Given Ondansetron HCl (Zofran Injection) 4 mg IVPUSH Q6H PRN PRN Reason: NAUSEA AND/OR VOMITING Ondansetron HCl (Zofran Injection) 4 mg IVPUSH Q4H PRN PRN Reason: NAUSEA AND/OR VOMITING Oxycodone HCl (Roxicodone -) 5 mg PO Q4H PRN Last Admin: 10/19/17 17:55 Dose: 5 mg Witch Adela/Glycerin (Tucks Pads -) 1 pad TP Q4H PRN a/p strep bacteremia uti repeat blood cultutes consider ct scan abd pelvis continue zosyn/flagyl repeat blood cultures
--- NOTE | 2017-10-19 19:50 | PN ---
Progress Note (short form) - Note Progress Note: Patient seen and examined Doing well. Denies any complaints Last Vital Signs Temp Pulse Resp BP Pulse Ox 98.5 F 80 20 124/91 98 10/19/17 18:31 10/19/17 18:31 10/19/17 18:31 10/19/17 18:31 10/19/17 09:00 Cor: RSR, No murmurs, No gallops Lungs: Clear to P&A Abd: Soft,laparotomy dressing +, ostomy+ Ext:No significant edema Abnormal Lab Results 10/19/17 07:00 RBC 3.77 L Hgb 10.0 L Hct 30.4 L Active Medications Generic Name Dose Route Start Last Admin Trade Name Freq PRN Reason Stop Dose Admin Acetaminophen 650 mg 10/17/17 19:14 10/17/17 19:29 Tylenol - PO 650 mg Q4H PRN Administration FEVER Carvedilol 12.5 mg 10/16/17 11:00 10/19/17 10:08 Coreg - PO 12.5 mg BID [facility] Administration HCTZ/Losartan Potassium 1 tab 10/17/17 10:15 10/19/17 10:09 Hyzaar - PO 1 tab DAILY [facility] Administration Heparin Sodium (Porcine) 5,000 unit 10/15/17 11:00 10/19/17 10:09 Heparin - SQ 5,000 unit BID [facility] Administration Metronidazole 250 mg in 50 mls @ 50 mls/hr 10/17/17 18:00 10/19/17 18:32 Flagyl 250mg Premixed Ivpb - IVPB 50 mls/hr Q8H-IV [facility] Administration Piperacillin Sod/Tazobactam 100 mls @ 200 mls/hr 10/17/17 18:00 10/19/17 18: 32 Sod 3.375 gm/ Dextrose IVPB 200 mls/hr Q8H-IV [facility] Administration Potassium Chloride 20 meq/ 1,010 mls @ 100 mls/hr 10/18/17 11:45 10/19/17 18: 56 Sodium Chloride IVPB Not Given Q10H [facility] Ondansetron HCl 4 mg 10/14/17 11:18 Zofran Injection IVPUSH Q6H PRN NAUSEA AND/OR VOMITING Ondansetron HCl 4 mg 10/14/17 11:18 Zofran Injection IVPUSH Q4H PRN NAUSEA AND/OR VOMITING Oxycodone HCl 5 mg 10/17/17 15:36 10/19/17 17:55 Roxicodone - PO 5 mg Q4H PRN Administration Witch Adela/Glycerin 1 pad 10/14/17 11:18 Tucks Pads - TP Q4H PRN A/P 47 y/o patient with Carcinoma of rectosigmoid colon, with metastasis, to liver and lung. 1)Exploratory laparotomy,. 2) peritoneal biopsy. 3)wedge biopsy of liver,. 4 )Tranverse colostomy. Large tumor in rectosigmoid , extending to both lateral wall of the pelvis and anteriorly to the bladder and pubis, the tumor involving the pelvic peritoneum , a small segment sent for biopsy. Multiple metastatic nodules in the right lobe of the liver, a wedge biopsy was done . from a nodule on the inferior surface of the right lobe of the liver. A transverse loop colostomy was done in the distal transverse colon , in the left upper quadrant of abdomen. healing well post operatively for FOLFOX
[2017-10-20] MEDS: oxyCODONE HCL 5 MG TABLET PO PRN ×3 (00:06→19:31)
[2017-10-20 00:09] LABS: VARICELLA-ZOSTER IGM < 0.91 index (0.00-0.90)
[2017-10-20] MEDS: METRONIDAZOLE PREMIXED IVPB 250 MG/50 ML MG IVPB SCH ×3 (01:47→18:33)
[2017-10-20] MEDS: PIPERACILLIN/TAZOB 3.375 GM 3.375 GM in DEXTROSE 5%-WATER - 100 ML IVPB SCH ×3 (01:47→19:28)
[2017-10-20] MEDS: POTASSIUM CHLORIDE 20 MEQ in SODIUM CHLORIDE 0.45% 1,000 ML IVPB SCH ×3 (06:24→19:28)
[2017-10-20] MEDS ORDERED: PT OWN MED DRAWER 7, Y5N ONE ×2 (09:43→18:28)
[2017-10-20] MEDS: HEPARIN NA (PORCINE) 5,000 UNITS/ML 1ML VIAL SQ SCH ×2 (11:30→21:25)
[2017-10-20] MEDS: LOSARTAN 50MG/HCTZ 12.5MG 1 TAB (FP) PO SCH (11:30)
[2017-10-20] MEDS: CARVEDILOL 12.5 MG TABLET (FP) PO SCH ×2 (11:30→21:25)
--- NOTE | 2017-10-20 12:16 | PN ---
Progress Note (short form) - Note Progress Note: Denies shortness of breath or chest pain. No cough or wheezing. Intake & Output 10/17/17 10/18/17 10/19/17 10/20/17 23:59 23:59 23:59 23:59 Intake Total 3730 3390 2425 1550 Output Total 2300 850 2750 900 Balance 1430 2540 -325 650 Last Vital Signs Temp Pulse Resp BP Pulse Ox 98.3 F 75 18 123/86 98 10/20/17 06:00 10/20/17 06:00 10/20/17 06:00 10/20/17 06:00 10/19/17 21:00 Active Medications Acetaminophen (Tylenol -) 650 mg PO Q4H PRN PRN Reason: FEVER Last Admin: 10/17/17 19:29 Dose: 650 mg Carvedilol (Coreg -) 12.5 mg PO BID [facility] Last Admin: 10/20/17 11:30 Dose: 12.5 mg HCTZ/Losartan Potassium (Hyzaar -) 1 tab PO DAILY [facility] Last Admin: 10/20/17 11:30 Dose: 1 tab Heparin Sodium (Porcine) (Heparin -) 5,000 unit SQ BID [facility] Last Admin: 10/20/17 11:30 Dose: 5,000 unit Metronidazole (Flagyl 250mg Premixed Ivpb -) 250 mg in 50 mls @ 50 mls/hr IVPB Q8H-IV [facility] Last Admin: 10/20/17 11:30 Dose: 50 mls/hr Piperacillin Sod/Tazobactam (Sod 3.375 gm/ Dextrose) 100 mls @ 200 mls/hr IVPB Q8H-IV [facility] Last Admin: 10/20/17 11:30 Dose: 200 mls/hr Potassium Chloride 20 meq/ (Sodium Chloride) 1,010 mls @ 100 mls/hr IVPB Q10H [facility] Last Admin: 10/20/17 06:24 Dose: 100 mls/hr Ondansetron HCl (Zofran Injection) 4 mg IVPUSH Q6H PRN PRN Reason: NAUSEA AND/OR VOMITING Ondansetron HCl (Zofran Injection) 4 mg IVPUSH Q4H PRN PRN Reason: NAUSEA AND/OR VOMITING Oxycodone HCl (Roxicodone -) 5 mg PO Q4H PRN Last Admin: 10/20/17 00:06 Dose: 5 mg Witch Adela/Glycerin (Tucks Pads -) 1 pad TP Q4H PRN Gen: NAD at rest Heart: RRR Lung: decreased breath sounds at the bases Abd: soft, nontender Ext: no edema Laboratory Results - last 24 hr 10/17/17 11:17 VZV IgM Antibody < 0.91 Problem List - Problems (1) Rectal mass Code(s): K62.9 - DISEASE OF ANUS AND RECTUM, UNSPECIFIED (2) Hypertension Code(s): I10 - ESSENTIAL (PRIMARY) HYPERTENSION (3) Lung nodules Code(s): R91.8 - OTHER NONSPECIFIC ABNORMAL FINDING OF LUNG FIELD IMP: Metastatic Invasive Adenocarcinoma Rectal Cancer Liver metastatis Probable Lung metastatis HTN PLAN: ABX Per ID Local wound care VTE prophylaxis O2 as needed Dr Whitaker
--- NOTE | 2017-10-20 12:58 | PN ---
Progress Note (short form) - Note Progress Note: comfortable feels ok denies pain. mood is stable tolerating orally + stool in colostomy bag. Vital Signs Temp 98.3 F 10/20/17 06:00 Pulse 75 10/20/17 06:00 Resp 18 10/20/17 06:00 BP 123/86 10/20/17 06:00 Pulse Ox 98 10/19/17 21:00 Intake & Output 10/19/17 10/20/17 10/20/17 23:59 11:59 23:59 Intake Total 860 1550 Output Total 1350 900 Balance -490 650 Intake: IVPB 1250 Oral 860 300 Output: Urine 1350 900 Void 1350 900 Other: Voiding Method Urinal Toilet Bowel Movement Yes: colostomy Yes: colostomy # Bowel Movements 1 Active Medications Acetaminophen (Tylenol -) 650 mg PO Q4H PRN PRN Reason: FEVER Last Admin: 10/17/17 19:29 Dose: 650 mg Carvedilol (Coreg -) 12.5 mg PO BID [facility] Last Admin: 10/20/17 11:30 Dose: 12.5 mg HCTZ/Losartan Potassium (Hyzaar -) 1 tab PO DAILY [facility] Last Admin: 10/20/17 11:30 Dose: 1 tab Heparin Sodium (Porcine) (Heparin -) 5,000 unit SQ BID [facility] Last Admin: 10/20/17 11:30 Dose: 5,000 unit Metronidazole (Flagyl 250mg Premixed Ivpb -) 250 mg in 50 mls @ 50 mls/hr IVPB Q8H-IV [facility] Last Admin: 10/20/17 11:30 Dose: 50 mls/hr Piperacillin Sod/Tazobactam (Sod 3.375 gm/ Dextrose) 100 mls @ 200 mls/hr IVPB Q8H-IV [facility] Last Admin: 10/20/17 11:30 Dose: 200 mls/hr Potassium Chloride 20 meq/ (Sodium Chloride) 1,010 mls @ 100 mls/hr IVPB Q10H [facility] Last Admin: 10/20/17 06:24 Dose: 100 mls/hr Ondansetron HCl (Zofran Injection) 4 mg IVPUSH Q6H PRN PRN Reason: NAUSEA AND/OR VOMITING Ondansetron HCl (Zofran Injection) 4 mg IVPUSH Q4H PRN PRN Reason: NAUSEA AND/OR VOMITING Oxycodone HCl (Roxicodone -) 5 mg PO Q4H PRN Last Admin: 10/20/17 00:06 Dose: 5 mg Witch Adela/Glycerin (Tucks Pads -) 1 pad TP Q4H PRN CBC, BMP 10/19/17 07:00 10/18/17 12:40 Microbiology 10/17/17 11:25 Blood Culture - Preliminary Blood - Peripheral Venous Beta Hem Streptococcus Group C 10/17/17 15:20 Urine Culture - Final Urine - Urine Clean Catch Escherichia Coli 10/17/17 11:17 Blood Culture - Preliminary Blood - Peripheral Venous NO GROWTH OBTAINED AFTER 72 HOURS, INCUBATION TO CONTINUE FOR 2 DAYS. Physical Constitutional: Yes: No Distress,comfortable. Eyes: Yes: Conjunctiva Clear Neck: Yes: Supple Cardiovascular: Yes: Regular Rate and Rhythm Respiratory: Yes: CTA Bilaterally Gastrointestinal: Yes: Soft, colostomy bag + Edema: No Neurological: Yes: Alert Psychiatric: Yes: Alert Assessment/Plan pod #6 pain ok bp ok pt ambulating in room antibiotics per i/d continue present care will follow Problem List - Problems (1) Anemia due to blood loss, chronic Code(s): D50.0 - IRON DEFICIENCY ANEMIA SECONDARY TO BLOOD LOSS (CHRONIC) (2) Bladder wall thickening Code(s): N32.89 - OTHER SPECIFIED DISORDERS OF BLADDER (3) Hypertension Code(s): I10 - ESSENTIAL (PRIMARY) HYPERTENSION (4) Large bowel obstruction Code(s): K56.609 - UNSP INTESTNL OBST, UNSP TO PARTIAL VERSUS COMPLETE OBST (5) Rectal mass Code(s): K62.9 - DISEASE OF ANUS AND RECTUM, UNSPECIFIED (6) Weight loss, non-intentional Code(s): R63.4 - ABNORMAL WEIGHT LOSS (7) Old cerebrovascular accident (CVA) without late effect Code(s): Z86.73 - PRSNL HX OF TIA (TIA), AND CEREB INFRC W/O RESID DEFICITS
[2017-10-20] MEDS ORDERED: PIPERACILLIN/TAZOB 3.375 GM/50 ML PRE-DOCKED IVPB SCH (18:15)
[2017-10-20] MEDS ORDERED: oxyCODONE HCL 5 MG TABLET ONE (19:31)
[2017-10-21] MEDS ORDERED: PT OWN MED DRAWER 7, Y5N ONE ×2 (01:30→09:33)
[2017-10-21] MEDS: METRONIDAZOLE PREMIXED IVPB 250 MG/50 ML MG IVPB SCH ×3 (02:22→18:03)
[2017-10-21] MEDS: PIPERACILLIN/TAZOB 3.375 GM 3.375 GM in DEXTROSE 5%-WATER - 100 ML IVPB SCH ×2 (02:22→09:40)
[2017-10-21] MEDS: POTASSIUM CHLORIDE 20 MEQ in SODIUM CHLORIDE 0.45% 1,000 ML IVPB SCH ×4 (02:26→23:27)
[2017-10-21] MEDS: ACETAMINOPHEN 325 MG TABLET (FP) PO PRN ×2 (06:36→21:00)
[2017-10-21] MEDS: CARVEDILOL 12.5 MG TABLET (FP) PO SCH ×2 (09:38→21:00)
[2017-10-21] MEDS: LOSARTAN 50MG/HCTZ 12.5MG 1 TAB (FP) PO SCH (09:39)
[2017-10-21] MEDS: HEPARIN NA (PORCINE) 5,000 UNITS/ML 1ML VIAL SQ SCH ×2 (09:39→21:00)
--- NOTE | 2017-10-21 09:44 | PN ---
Progress Note (short form) - Note Progress Note: patient seen and examined. Comfortable Afebrile Denies pain Colostomy site clean--stoma viable Vital Signs Temp 98.7 F 10/21/17 06:00 Pulse 70 10/21/17 06:00 Resp 18 10/21/17 06:00 BP 118/83 10/21/17 06:00 Pulse Ox 98 10/20/17 21:00 Intake & Output 10/20/17 10/20/17 10/21/17 11:59 23:59 11:59 Intake Total 1550 460 100 Output Total 283 799 6604 Balance 650 -240 -1100 Intake: IVPB 1250 200 100 Oral 300 260 0 Output: Urine 550 727 4252 Void 016 129 3305 Other: Voiding Method Toilet Toilet Bowel Movement Yes: colostomy Yes No # Bowel Movements 1 Active Medications Acetaminophen (Tylenol -) 650 mg PO Q4H PRN PRN Reason: FEVER Last Admin: 10/21/17 06:36 Dose: 650 mg Carvedilol (Coreg -) 12.5 mg PO BID [facility] Last Admin: 10/20/17 21:25 Dose: 12.5 mg HCTZ/Losartan Potassium (Hyzaar -) 1 tab PO DAILY [facility] Last Admin: 10/20/17 11:30 Dose: 1 tab Heparin Sodium (Porcine) (Heparin -) 5,000 unit SQ BID [facility] Last Admin: 10/20/17 21:25 Dose: 5,000 unit Metronidazole (Flagyl 250mg Premixed Ivpb -) 250 mg in 50 mls @ 50 mls/hr IVPB Q8H-IV [facility] Last Admin: 10/21/17 02:22 Dose: 50 mls/hr Potassium Chloride 20 meq/ (Sodium Chloride) 1,010 mls @ 100 mls/hr IVPB Q10H [facility] [place] Last Admin: 10/21/17 02:26 Dose: Not Given Piperacillin Sod/Tazobactam (Sod 3.375 gm/ Dextrose) 100 mls @ 200 mls/hr IVPB Q8H-IV [facility] [place] Last Admin: 10/21/17 02:22 Dose: 200 mls/hr Ondansetron HCl (Zofran Injection) 4 mg IVPUSH Q6H PRN PRN Reason: NAUSEA AND/OR VOMITING Ondansetron HCl (Zofran Injection) 4 mg IVPUSH Q4H PRN PRN Reason: NAUSEA AND/OR VOMITING Witch Adela/Glycerin (Tucks Pads -) 1 pad TP Q4H PRN CBC, BMP 10/19/17 07:00 10/18/17 12:40 Microbiology 10/17/17 11:25 Blood Culture - Final Blood - Peripheral Venous Beta Hem Streptococcus Group C 10/17/17 11:17 Blood Culture - Preliminary Blood - Peripheral Venous NO GROWTH OBTAINED AFTER 96 HOURS, INCUBATION TO CONTINUE FOR 1 DAYS. Physical Constitutional: Yes: No Distress,comfortable. Eyes: Yes: Conjunctiva Clear Neck: Yes: Supple Cardiovascular: Yes: Regular Rate and Rhythm Respiratory: Yes: CTA Bilaterally Gastrointestinal: Yes: Soft, colostomy bag + Edema: No Neurological: Yes: Alert Psychiatric: Yes: Alert Assessment/Plan pod #7 pain ok bp ok pt ambulating in room strep bacteremia Continue antibiotics Follow-up blood cultures sent continue present care will follow port to be placed once infection is cleared Problem List - Problems (1) Anemia due to blood loss, chronic Code(s): D50.0 - IRON DEFICIENCY ANEMIA SECONDARY TO BLOOD LOSS (CHRONIC) (2) Bladder wall thickening Code(s): N32.89 - OTHER SPECIFIED DISORDERS OF BLADDER (3) Hypertension Code(s): I10 - ESSENTIAL (PRIMARY) HYPERTENSION (4) Large bowel obstruction Code(s): K56.609 - UNSP INTESTNL OBST, UNSP TO PARTIAL VERSUS COMPLETE OBST (5) Rectal mass Code(s): K62.9 - DISEASE OF ANUS AND RECTUM, UNSPECIFIED (6) Weight loss, non-intentional Code(s): R63.4 - ABNORMAL WEIGHT LOSS (7) Old cerebrovascular accident (CVA) without late effect Code(s): Z86.73 - PRSNL HX OF TIA (TIA), AND CEREB INFRC W/O RESID DEFICITS
--- NOTE | 2017-10-21 10:40 | CONS ---
DATE OF CONSULTATION: 10/18/2017 REFERRING PHYSICIAN: Edith Stapleton MD REASON FOR CONSULTATION: Rectal cancer with metastases to the lung and liver. HISTORY OF PRESENT ILLNESS: The patient is a 47-year-old gentleman who presented with acute onset of diarrhea and abdominal pain associated with 30-pound weight loss over 6 months and diminished appetite. CT of the abdomen and pelvis showed what appeared to be a rectal abscess. A proctosigmoidoscopy revealed a large rectal mass at 10 cm from the anal verge with near obstruction. Biopsy of this mass demonstrated an invasive adenocarcinoma, MSI low. Staging workup with CT of the chest, abdomen, and pelvis demonstrated multiple bilateral sub centimeter pulmonary nodules, multiple hepatic metastases up to 2 cm. On October 14, 2017, he underwent an exploratory laparotomy, diverting transverse colostomy, cystoscopy, and bilateral ureteral stent placement. The operative findings reported a large rectal mass extending through the peritoneum to the lateral pelvic wall and anteriorly to the bladder and pubis. There were metastatic nodules on the right lobe of the liver , which were biopsied and confirmed adenocarcinoma. The peritoneal biopsy also showed adenocarcinoma. He is now recovering from recent surgery with minimal incisional pain, nausea, vomiting, abdominal pain. Tolerating liquid diet. His colostomy is functioning. He denies shortness of breath, cough, or difficulty urinating. He has no history of radiation therapy, inflammatory bowel disease, or connective tissue disease. PAST MEDICAL HISTORY: CVA one year ago, hypertension, hyperlipidemia, right rotator cuff repair. PAST SURGICAL HISTORY: As noted above. ALLERGIES: No known drug allergies. CURRENT MEDICATIONS: Hyzaar, Flagyl, heparin subcutaneous, carvedilol, Unasyn, oxycodone p.r.n., Tylenol p.r.n. SOCIAL HISTORY: He lives with his . He has 5 children and 1 grandchild. 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 He never smoked and consumes alcohol on social occasions. FAMILY HISTORY: His sister had a [employer] malignancy. His father may have had colon cancer. REVIEW OF SYSTEMS: As noted above. PHYSICAL EXAMINATION: General: A well-appearing male appearing his stated age in no acute distress lying in the hospital bed. Vital Signs: Stable. Afebrile. HEENT: Normocephalic and atraumatic. Moist mucous membranes. Anicteric sclerae. Clear oral cavity without lesions. Neck: No thyromegaly or cervical/supraclavicular adenopathy. Chest: Clear bilaterally. Cardiovascular: Regular. Abdomen: Surgical mishel are in place. Midline incision is healing without drainage, bleeding, or sign of infection. The abdomen is soft without tenderness. The colostomy is functioning. Extremities: No peripheral edema. Musculoskeletal: No spine or CVA tenderness. Neurologic: Nonfocal. PATHOLOGIC DATA: See HPI. LABORATORY DATA: WBC 15.9, hemoglobin 10.7, platelets 293,000. Electrolytes within normal limits. BUN 7, creatinine 0.7, calcium 7.4, alkaline phosphatase 127, albumin 2.2. RADIOLOGIC DATA: See HPI. IMPRESSION: A 47-year-old gentleman with stage IV rectal adenocarcinoma with obstruction status post diverting colostomy with biopsy-confirmed liver and peritoneal involvement and probable lung metastases. Since he has been diverted for the obstruction, I agree that systemic therapy is indicated at this time. We will reserve radiation therapy for palliation of progressive bleeding, pain, or obstruction and could consider consolidation radiation therapy of any residual disease should he have a remarkable response to systemic therapy. Agree with proceeding with port placement for chemotherapy when he is stable. The plan was discussed with the patient. PLAN: Proceed with systemic therapy. Palliative RT on standby. Thank you for asking me to see this dianna patient. RADHA LEE M.D. [id number] MTDD
--- NOTE | 2017-10-21 14:14 | PN ---
Progress Note, Physician History of Present Illness: No c/o abdominal pain No c/o fever/chills Tolerating diet Afebrile WBC improved 9.6 - Current Medication List Current Medications: Active Medications Acetaminophen (Tylenol -) 650 mg PO Q4H PRN PRN Reason: FEVER Last Admin: 10/21/17 06:36 Dose: 650 mg Carvedilol (Coreg -) 12.5 mg PO BID [facility] Last Admin: 10/21/17 09:38 Dose: 12.5 mg HCTZ/Losartan Potassium (Hyzaar -) 1 tab PO DAILY [facility] Last Admin: 10/21/17 09:39 Dose: 1 tab Heparin Sodium (Porcine) (Heparin -) 5,000 unit SQ BID [facility] Last Admin: 10/21/17 09:39 Dose: 5,000 unit Metronidazole (Flagyl 250mg Premixed Ivpb -) 250 mg in 50 mls @ 50 mls/hr IVPB Q8H-IV [facility] Last Admin: 10/21/17 09:39 Dose: 50 mls/hr Potassium Chloride 20 meq/ (Sodium Chloride) 1,010 mls @ 100 mls/hr IVPB Q10H [facility] Last Admin: 10/21/17 09:36 Dose: 100 mls/hr Piperacillin Sod/Tazobactam (Sod 3.375 gm/ Dextrose) 100 mls @ 200 mls/hr IVPB Q8H-IV [facility] Last Admin: 10/21/17 09:40 Dose: 200 mls/hr Ondansetron HCl (Zofran Injection) 4 mg IVPUSH Q6H PRN PRN Reason: NAUSEA AND/OR VOMITING Ondansetron HCl (Zofran Injection) 4 mg IVPUSH Q4H PRN PRN Reason: NAUSEA AND/OR VOMITING Witch Adela/Glycerin (Tucks Pads -) 1 pad TP Q4H PRN - Objective Vital Signs: Vital Signs Temperature 97.8 F 10/21/17 09:00 Pulse Rate 61 10/21/17 09:00 Respiratory Rate 18 10/21/17 09:00 Blood Pressure 110/76 10/21/17 09:00 O2 Sat by Pulse Oximetry (%) 98 10/20/17 21:00 Constitutional: Yes: No Distress Eyes: Yes: Conjunctiva Clear Cardiovascular: Yes: Regular Rate and Rhythm, S1, S2 Respiratory: Yes: CTA Bilaterally Gastrointestinal: Yes: Normal Bowel Sounds, Soft, Other (+ surgical wound with mishel in place. +ostomy). No: Tenderness Edema: No Labs: CBC, BMP 10/19/17 07:00 10/18/17 12:40 INR, PTT INR 1.19 (0.82-1.09) H 10/14/17 06:00 Assessment/Plan Group C strep bacteremia Day # 5 antibiotics Post op day #8 laparotomy, colostomy Repeat BC pending Substitute ceftriaxone for zosyn Continue flagyl
[2017-10-21] MEDS: CEFTRIAXONE IN IS-OSM DEXTROSE 2 GM/50 ML BAG IVPB SCH (15:21)
[2017-10-21] MEDS ORDERED: PIPERACILLIN/TAZOB 3.375 GM 3.375 GM in DEXTROSE 5%-WATER - 100 ML IVPB SCH (18:45)
[2017-10-22] MEDS ORDERED: PT OWN MED DRAWER 7, Y5N ONE ×2 (00:49→11:14)
[2017-10-22] MEDS: METRONIDAZOLE PREMIXED IVPB 250 MG/50 ML MG IVPB SCH ×3 (02:05→18:00)
[2017-10-22] MEDS: ACETAMINOPHEN 325 MG TABLET (FP) PO PRN ×2 (03:26→19:03)
[2017-10-22] MEDS: POTASSIUM CHLORIDE 20 MEQ in SODIUM CHLORIDE 0.45% 1,000 ML IVPB SCH ×2 (05:49→18:00)
[2017-10-22 08:05] LABS: BASO % 1.9 % (0-2.0); EOS % 0.9 % (0-4.5); HEMATOCRIT 31.8 % (35.4-49); HEMOGLOBIN 10.5 GM/dL (11.7-16.9); LYMPH % 20.8 % (8-40); MCH 26.6 pg (25.7-33.7); MCHC 32.9 g/dl (32.0-35.9); MEAN PLT VOLUME 7.8 fl (7.5-11.1); MONO % 13.7 % (3.8-10.2); NEUT % 62.7 % (42.8-82.8); PLATELET COUNT 325 K/MM3 (134-434); RBC 3.93 M/mm3 (4.00-5.60); RDW 15.4 % (11.9-15.9); WHITE BLOOD COUNT 6.1 K/mm3 (4.0-10.0)
[2017-10-22 08:23] LABS: CHLORIDE 104 mmol/L (98-107); POTASSIUM 4.5 mmol/L (3.5-5.1); SODIUM 137 mmol/L (136-145)
[2017-10-22 08:40] LABS: ALBUMIN 2.3 g/dl (3.4-5.0); ALK PHOS 130 U/L (45-117); ANION GAP 6 (8-16); BILIRUBIN,TOTAL 0.5 mg/dL (0.2-1.0); BLOOD UREA NITROGEN 7 mg/dL (7-18); CALCIUM 8.5 mg/dL (8.5-10.1); CO2 27 mmol/L (21-32); CREATININE 0.8 mg/dL (0.7-1.3); GLUCOSE,RANDOM 81 mg/dL (74-106); SGOT/AST 13 U/L (15-37); SGPT/ALT 14 U/L (12-78)
--- NOTE | 2017-10-22 09:43 | PN ---
Progress Note (short form) - Note Progress Note: patient seen and examined. Comfortable No complaints offered Denies chest pain or shortness of breath or abdominal pain afebrile Vital Signs Temp 98.1 F 10/22/17 09:35 Pulse 62 10/22/17 09:35 Resp 18 10/22/17 09:35 BP 125/93 10/22/17 09:35 Pulse Ox 97 10/21/17 21:00 Intake & Output 10/21/17 10/21/17 10/22/17 11:59 23:59 11:59 Intake Total 560 720 Output Total 2600 950 800 Balance -2040 -230 -800 Weight 134 lb 11.2 oz Intake: IVPB 100 300 Oral 460 420 Output: Urine 2600 950 800 Void 2600 950 800 Other: Voiding Method Urinal Urinal Bowel Movement Yes Yes Weight Measurement Method Standing Scale Active Medications Acetaminophen (Tylenol -) 650 mg PO Q4H PRN PRN Reason: FEVER Last Admin: 10/22/17 03:26 Dose: 650 mg Carvedilol (Coreg -) 12.5 mg PO BID [facility] Last Admin: 10/21/17 21:00 Dose: 12.5 mg HCTZ/Losartan Potassium (Hyzaar -) 1 tab PO DAILY [facility] Last Admin: 10/21/17 09:39 Dose: 1 tab Heparin Sodium (Porcine) (Heparin -) 5,000 unit SQ BID [facility] Last Admin: 10/21/17 21:00 Dose: 5,000 unit Metronidazole (Flagyl 250mg Premixed Ivpb -) 250 mg in 50 mls @ 50 mls/hr IVPB Q8H-IV [facility] Last Admin: 10/22/17 02:05 Dose: 50 mls/hr Potassium Chloride 20 meq/ (Sodium Chloride) 1,010 mls @ 100 mls/hr IVPB Q10H [facility] Last Admin: 10/22/17 05:49 Dose: Not Given CEFTRIAXONE IN IS-OSM DEXTROSE (Ceftriaxone 2 Gm-D5w Bag) 2 gm in 50 mls @ 100 mls/hr IVPB DAILY [facility] Last Admin: 10/21/17 15:21 Dose: 100 mls/hr Ondansetron HCl (Zofran Injection) 4 mg IVPUSH Q6H PRN PRN Reason: NAUSEA AND/OR VOMITING Ondansetron HCl (Zofran Injection) 4 mg IVPUSH Q4H PRN PRN Reason: NAUSEA AND/OR VOMITING Witch Adela/Glycerin (Tucks Pads -) 1 pad TP Q4H PRN CBC, BMP 10/22/17 06:40 10/22/17 06:40 Microbiology 10/20/17 18:50 Blood Culture - Preliminary Blood - Peripheral Venous NO GROWTH OBTAINED AFTER 24 HOURS, INCUBATION TO CONTINUE FOR 4 DAYS. 10/20/17 18:50 Blood Culture - Preliminary Blood - Peripheral Venous NO GROWTH OBTAINED AFTER 24 HOURS, INCUBATION TO CONTINUE FOR 4 DAYS. 10/17/17 11:25 Blood Culture - Final Blood - Peripheral Venous Beta Hem Streptococcus Group C 10/17/17 11:17 Blood Culture - Preliminary Blood - Peripheral Venous NO GROWTH OBTAINED AFTER 96 HOURS, INCUBATION TO CONTINUE FOR 1 DAYS. Physical Constitutional: Yes: No Distress,comfortable. Eyes: Yes: Conjunctiva Clear Neck: Yes: Supple Cardiovascular: Yes: Regular Rate and Rhythm Respiratory: Yes: CTA Bilaterally Gastrointestinal: Yes: Soft, colostomy bag + Edema: No Neurological: Yes: Alert Psychiatric: Yes: Alert Assessment/Plan pod #8 pain ok bp ok pt ambulating in room strep bacteremia Continue antibiotics Follow-up blood cultures sent-- negative so far continue present care will follow port to be placed once infection is cleared Problem List - Problems (1) Anemia due to blood loss, chronic Code(s): D50.0 - IRON DEFICIENCY ANEMIA SECONDARY TO BLOOD LOSS (CHRONIC) (2) Bladder wall thickening Code(s): N32.89 - OTHER SPECIFIED DISORDERS OF BLADDER (3) Hypertension Code(s): I10 - ESSENTIAL (PRIMARY) HYPERTENSION (4) Large bowel obstruction Code(s): K56.609 - UNSP INTESTNL OBST, UNSP TO PARTIAL VERSUS COMPLETE OBST (5) Rectal mass Code(s): K62.9 - DISEASE OF ANUS AND RECTUM, UNSPECIFIED (6) Weight loss, non-intentional Code(s): R63.4 - ABNORMAL WEIGHT LOSS (7) Old cerebrovascular accident (CVA) without late effect Code(s): Z86.73 - PRSNL HX OF TIA (TIA), AND CEREB INFRC W/O RESID DEFICITS
[2017-10-22] MEDS: LOSARTAN 50MG/HCTZ 12.5MG 1 TAB (FP) PO SCH (11:17)
[2017-10-22] MEDS: CEFTRIAXONE IN IS-OSM DEXTROSE 2 GM/50 ML BAG IVPB SCH (11:17)
[2017-10-22] MEDS: HEPARIN NA (PORCINE) 5,000 UNITS/ML 1ML VIAL SQ SCH ×2 (11:17→21:16)
[2017-10-22] MEDS: CARVEDILOL 12.5 MG TABLET (FP) PO SCH ×2 (11:17→21:16)
--- NOTE | 2017-10-22 13:38 | PN ---
Progress Note (short form) - Note Progress Note: Seen and examined chart reviewed tolerating diet, pain controlled events noted Constitutional: Yes: Well Nourished, No Distress, Calm Eyes: Yes: WNL, Conjunctiva Clear, EOM Intact HENT: Yes: Atraumatic, Normocephalic Neck: Yes: Supple, Trachea Midline Cardiovascular: Yes: Regular Rate and Rhythm Respiratory: Yes: Regular Gastrointestinal: incision+ ostomy bag+ Extremities: Yes: WNL Edema: No Neurological: Yes: Alert, Oriented Psychiatric: Yes: Alert, Oriented Last Vital Signs Temp Pulse Resp BP Pulse Ox 98.1 F 62 18 125/93 97 10/22/17 09:35 10/22/17 09:35 10/22/17 09:35 10/22/17 09:35 10/21/17 21:00 CBC, BMP 10/22/17 06:40 10/22/17 06:40 Current Medications Generic Name Dose Route Start Last Admin Trade Name Freq PRN Reason Stop Dose Admin Acetaminophen 650 mg 10/17/17 19:14 10/22/17 03:26 Tylenol - PO 650 mg Q4H PRN Administration FEVER Carvedilol 12.5 mg 10/16/17 11:00 10/22/17 11:17 Coreg - PO 12.5 mg BID AJ Administration HCTZ/Losartan Potassium 1 tab 10/17/17 10:15 10/22/17 11:17 Hyzaar - PO 1 tab DAILY AJ Administration Heparin Sodium (Porcine) 5,000 unit 10/15/17 11:00 10/22/17 11:17 Heparin - SQ 5,000 unit BID AJ Administration Metronidazole 250 mg in 50 mls @ 50 mls/hr 10/17/17 18:00 10/22/17 11:17 Flagyl 250mg Premixed Ivpb - IVPB 50 mls/hr Q8H-IV AJ Administration Potassium Chloride 20 meq/ 1,010 mls @ 100 mls/hr 10/18/17 11:45 10/22/17 05: 49 Sodium Chloride IVPB Not Given Q10H AJ CEFTRIAXONE IN IS-OSM DEXTROSE 2 gm in 50 mls @ 100 mls/hr 10/21/17 14:15 11:17 Ceftriaxone 2 Gm-D5w Bag IVPB 100 mls/hr DAILY [facility] Administration Ondansetron HCl 4 mg 10/14/17 11:18 Zofran Injection IVPUSH Q6H PRN NAUSEA AND/OR VOMITING Ondansetron HCl 4 mg 10/14/17 11:18 Zofran Injection IVPUSH Q4H PRN NAUSEA AND/OR VOMITING Witch Adela/Glycerin 1 pad 10/14/17 11:18 Tucks Pads - TP Q4H PRN 47 y/o patient with Carcinoma of rectosigmoid colon, with metastasis, to liver and lung. 1)Exploratory laparotomy,. 2) peritoneal biopsy. 3)wedge biopsy of liver,. 4 )Transverse colostomy. MISAEL now bactermic port once infection resolves for OP FOLFOX Problem List - Problems (1) Anemia due to blood loss, chronic Code(s): D50.0 - IRON DEFICIENCY ANEMIA SECONDARY TO BLOOD LOSS (CHRONIC) (2) Rectal mass Code(s): K62.9 - DISEASE OF ANUS AND RECTUM, UNSPECIFIED (3) Perirectal abscess Code(s): K61.1 - RECTAL ABSCESS (4) Large bowel obstruction Code(s): K56.609 - UNSP INTESTNL OBST, UNSP TO PARTIAL VERSUS COMPLETE OBST (5) Weight loss, non-intentional Code(s): R63.4 - ABNORMAL WEIGHT LOSS
--- NOTE | 2017-10-22 18:04 | PN ---
GI Progress Note Subjective: GI NOte: Surgical efforts appreciated. Colostomy functioning and tolerating solids. Observing colostomy management. Discussed the need for chemotherapy once his current infection resolves and his surgical wounds heal. I had discussed the case with Dr. Iraheta earlier - Objective Vital Signs: Vital Signs Temperature 98.4 F 10/22/17 13:50 Pulse Rate 70 10/22/17 13:50 Respiratory Rate 18 10/22/17 13:50 Blood Pressure 120/82 10/22/17 13:50 O2 Sat by Pulse Oximetry (%) 97 10/21/17 21:00 Constitutional: No Distress Gastrointestinal Inspection: Yes: Other (functional colostomy) ...Auscultate: Yes: Normoactive Bowel Sounds Labs: CBC, BMP 10/22/17 06:40 10/22/17 06:40 INR, PTT INR 1.19 (0.82-1.09) H 10/14/17 06:00 Problem List - Problems (1) Rectal mass Assessment/Plan: Malignant obstructing rectal carcinoma with distant metastases and in need for chemotherapy when appropriate Code(s): K62.9 - DISEASE OF ANUS AND RECTUM, UNSPECIFIED (2) Weight loss, non-intentional Code(s): R63.4 - ABNORMAL WEIGHT LOSS (3) Narrowing of stools Code(s): R19.5 - OTHER FECAL ABNORMALITIES (4) CVA (cerebral vascular accident) Code(s): I63.9 - CEREBRAL INFARCTION, UNSPECIFIED (5) Large bowel obstruction Assessment/Plan: Relieved by colostomy Code(s): K56.609 - UNSP INTESTNL OBST, UNSP TO PARTIAL VERSUS COMPLETE OBST (6) Anemia due to blood loss, chronic Code(s): D50.0 - IRON DEFICIENCY ANEMIA SECONDARY TO BLOOD LOSS (CHRONIC)
[2017-10-23] MEDS: POTASSIUM CHLORIDE 20 MEQ in SODIUM CHLORIDE 0.45% 1,000 ML IVPB SCH ×2 (01:30→13:53)
[2017-10-23] MEDS: METRONIDAZOLE PREMIXED IVPB 250 MG/50 ML MG IVPB SCH ×3 (01:31→18:35)
[2017-10-23 08:36] LABS: BASO % 2.3 % (0-2.0); EOS % 1.1 % (0-4.5); HEMATOCRIT 34.4 % (35.4-49); HEMOGLOBIN 11.2 GM/dL (11.7-16.9); MCH 26.6 pg (25.7-33.7); MCHC 32.5 g/dl (32.0-35.9); MEAN CELL VOLUME 81.9 fl (80-96); MONO % 12.4 % (3.8-10.2); NEUT % 60.2 % (42.8-82.8); PLATELET COUNT 342 K/MM3 (134-434); RDW 15.3 % (11.9-15.9); WHITE BLOOD COUNT 5.6 K/mm3 (4.0-10.0)
--- NOTE | 2017-10-23 09:39 | PN ---
Progress Note, Physician History of Present Illness: comfortable no new issues denies pain afebrile repeat cultures -ve so far colostomy functioning. walks in room with walker. - Current Medication List Current Medications: Active Medications Acetaminophen (Tylenol -) 650 mg PO Q4H PRN PRN Reason: FEVER Last Admin: 10/22/17 19:03 Dose: 650 mg Carvedilol (Coreg -) 12.5 mg PO BID [facility] Last Admin: 10/22/17 21:16 Dose: 12.5 mg HCTZ/Losartan Potassium (Hyzaar -) 1 tab PO DAILY [facility] Last Admin: 10/22/17 11:17 Dose: 1 tab Heparin Sodium (Porcine) (Heparin -) 5,000 unit SQ BID [facility] Last Admin: 10/22/17 21:16 Dose: 5,000 unit Metronidazole (Flagyl 250mg Premixed Ivpb -) 250 mg in 50 mls @ 50 mls/hr IVPB Q8H-IV [facility] Last Admin: 10/23/17 01:31 Dose: 50 mls/hr Potassium Chloride 20 meq/ (Sodium Chloride) 1,010 mls @ 100 mls/hr IVPB Q10H [facility] Last Admin: 10/23/17 01:30 Dose: Not Given CEFTRIAXONE IN IS-OSM DEXTROSE (Ceftriaxone 2 Gm-D5w Bag) 2 gm in 50 mls @ 100 mls/hr IVPB DAILY [facility] Last Admin: 10/22/17 11:17 Dose: 100 mls/hr Ondansetron HCl (Zofran Injection) 4 mg IVPUSH Q6H PRN PRN Reason: NAUSEA AND/OR VOMITING Ondansetron HCl (Zofran Injection) 4 mg IVPUSH Q4H PRN PRN Reason: NAUSEA AND/OR VOMITING Witch Adela/Glycerin (Tucks Pads -) 1 pad TP Q4H PRN - Objective Vital Signs: Vital Signs Temperature 98.1 F 10/23/17 06:00 Pulse Rate 72 10/23/17 06:00 Respiratory Rate 18 10/23/17 06:00 Blood Pressure 122/86 10/23/17 06:00 O2 Sat by Pulse Oximetry (%) 97 10/21/17 21:00 Constitutional: Yes: No Distress, Calm Eyes: Yes: Conjunctiva Clear Neck: Yes: Supple Cardiovascular: Yes: Regular Rate and Rhythm Respiratory: Yes: CTA Bilaterally Gastrointestinal: Yes: Soft, Other (colostomy bag in place) Edema: No Neurological: Yes: Alert Labs: CBC, BMP 10/23/17 07:30 10/22/17 06:40 INR, PTT INR 1.19 (0.82-1.09) H 10/14/17 06:00 Problem List - Problems (1) Anemia due to blood loss, chronic Code(s): D50.0 - IRON DEFICIENCY ANEMIA SECONDARY TO BLOOD LOSS (CHRONIC) (2) Bladder wall thickening Code(s): N32.89 - OTHER SPECIFIED DISORDERS OF BLADDER (3) Hypertension Code(s): I10 - ESSENTIAL (PRIMARY) HYPERTENSION (4) Large bowel obstruction Code(s): K56.609 - UNSP INTESTNL OBST, UNSP TO PARTIAL VERSUS COMPLETE OBST (5) Rectal mass Code(s): K62.9 - DISEASE OF ANUS AND RECTUM, UNSPECIFIED (6) Weight loss, non-intentional Code(s): R63.4 - ABNORMAL WEIGHT LOSS (7) Old cerebrovascular accident (CVA) without late effect Code(s): Z86.73 - PRSNL HX OF TIA (TIA), AND CEREB INFRC W/O RESID DEFICITS Assessment/Plan stable pod #9 pain ok bp ok pt ambulating in room strep bacteremia Continue antibiotics Follow-up blood cultures sent-- negative so far continue present care will follow port to be placed once infection is cleared.
[2017-10-23] MEDS ORDERED: PT OWN MED DRAWER 7, Y5N ONE ×2 (09:49→17:18)
[2017-10-23] MEDS: CARVEDILOL 12.5 MG TABLET (FP) PO SCH ×2 (10:11→23:12)
[2017-10-23] MEDS: LOSARTAN 50MG/HCTZ 12.5MG 1 TAB (FP) PO SCH (10:12)
[2017-10-23] MEDS: CEFTRIAXONE IN IS-OSM DEXTROSE 2 GM/50 ML BAG IVPB SCH (10:13)
[2017-10-23] MEDS: HEPARIN NA (PORCINE) 5,000 UNITS/ML 1ML VIAL SQ SCH ×2 (10:16→23:12)
--- NOTE | 2017-10-23 11:19 | PN ---
Progress Note, Physician - Current Medication List Current Medications: Active Medications Acetaminophen (Tylenol -) 650 mg PO Q4H PRN PRN Reason: FEVER Last Admin: 10/22/17 19:03 Dose: 650 mg Carvedilol (Coreg -) 12.5 mg PO BID [facility] Last Admin: 10/23/17 10:11 Dose: 12.5 mg HCTZ/Losartan Potassium (Hyzaar -) 1 tab PO DAILY [facility] Last Admin: 10/23/17 10:12 Dose: 1 tab Heparin Sodium (Porcine) (Heparin -) 5,000 unit SQ BID [facility] Last Admin: 10/23/17 10:16 Dose: 5,000 unit Metronidazole (Flagyl 250mg Premixed Ivpb -) 250 mg in 50 mls @ 50 mls/hr IVPB Q8H-IV [facility] Last Admin: 10/23/17 10:12 Dose: 50 mls/hr Potassium Chloride 20 meq/ (Sodium Chloride) 1,010 mls @ 100 mls/hr IVPB Q10H [facility] Last Admin: 10/23/17 01:30 Dose: Not Given CEFTRIAXONE IN IS-OSM DEXTROSE (Ceftriaxone 2 Gm-D5w Bag) 2 gm in 50 mls @ 100 mls/hr IVPB DAILY [facility] Last Admin: 10/23/17 10:13 Dose: 100 mls/hr Ondansetron HCl (Zofran Injection) 4 mg IVPUSH Q6H PRN PRN Reason: NAUSEA AND/OR VOMITING Ondansetron HCl (Zofran Injection) 4 mg IVPUSH Q4H PRN PRN Reason: NAUSEA AND/OR VOMITING Witch Adela/Glycerin (Tucks Pads -) 1 pad TP Q4H PRN - Objective Vital Signs: Vital Signs Temperature 98.1 F 10/23/17 06:00 Pulse Rate 72 10/23/17 06:00 Respiratory Rate 18 10/23/17 06:00 Blood Pressure 122/86 10/23/17 06:00 O2 Sat by Pulse Oximetry (%) 97 10/21/17 21:00 Labs: CBC, BMP 10/23/17 07:30 10/22/17 06:40 INR, PTT INR 1.19 (0.82-1.09) H 10/14/17 06:00 Problem List - Problems (1) Perirectal abscess Code(s): K61.1 - RECTAL ABSCESS (2) Diarrhea Code(s): R19.7 - DIARRHEA, UNSPECIFIED Qualifiers: Diarrhea type: unspecified type Qualified Code(s): R19.7 - Diarrhea, unspecified (3) Hypertension Code(s): I10 - ESSENTIAL (PRIMARY) HYPERTENSION Assessment/Plan Surgery: Colostomy is functioning well. Skin mishel are removed. Wound is healing well. Colostomy nis functioning, Discharge planning. He is to receive chemotherapy.
--- NOTE | 2017-10-23 17:34 | PN ---
Progress Note, Physician History of Present Illness: No c/o abdominal pain No c/o fever/chills Tolerating diet Afebrile Continues on IV antibiotics for streptococcal bacteremia - Current Medication List Current Medications: Active Medications Acetaminophen (Tylenol -) 650 mg PO Q4H PRN PRN Reason: FEVER Last Admin: 10/22/17 19:03 Dose: 650 mg Carvedilol (Coreg -) 12.5 mg PO BID [facility] Last Admin: 10/23/17 10:11 Dose: 12.5 mg HCTZ/Losartan Potassium (Hyzaar -) 1 tab PO DAILY [facility] Last Admin: 10/23/17 10:12 Dose: 1 tab Heparin Sodium (Porcine) (Heparin -) 5,000 unit SQ BID [facility] Last Admin: 10/23/17 10:16 Dose: 5,000 unit Metronidazole (Flagyl 250mg Premixed Ivpb -) 250 mg in 50 mls @ 50 mls/hr IVPB Q8H-IV [facility] Last Admin: 10/23/17 10:12 Dose: 50 mls/hr Potassium Chloride 20 meq/ (Sodium Chloride) 1,010 mls @ 100 mls/hr IVPB Q10H [facility] Last Admin: 10/23/17 13:53 Dose: Not Given CEFTRIAXONE IN IS-OSM DEXTROSE (Ceftriaxone 2 Gm-D5w Bag) 2 gm in 50 mls @ 100 mls/hr IVPB DAILY [facility] Last Admin: 10/23/17 10:13 Dose: 100 mls/hr Ondansetron HCl (Zofran Injection) 4 mg IVPUSH Q6H PRN PRN Reason: NAUSEA AND/OR VOMITING Ondansetron HCl (Zofran Injection) 4 mg IVPUSH Q4H PRN PRN Reason: NAUSEA AND/OR VOMITING Witch Adela/Glycerin (Tucks Pads -) 1 pad TP Q4H PRN - Objective Vital Signs: Vital Signs Temperature 97.8 F 10/23/17 14:44 Pulse Rate 85 10/23/17 14:44 Respiratory Rate 18 10/23/17 14:44 Blood Pressure 125/73 10/23/17 14:44 O2 Sat by Pulse Oximetry (%) 100 10/23/17 09:00 Constitutional: Yes: No Distress, Cachectic Cardiovascular: Yes: Regular Rate and Rhythm, S1, S2 Respiratory: Yes: CTA Bilaterally Gastrointestinal: Yes: Normal Bowel Sounds, Soft, Other (+ surgical wound, ostomy) Edema: No Labs: CBC, BMP 10/23/17 07:30 10/22/17 06:40 INR, PTT INR 1.19 (0.82-1.09) H 10/14/17 06:00 Assessment/Plan Group C strep bacteremia Post op laparotomy, colostomy Metastatic carcinoma Repeat BC no growth Continue ceftriaxone / flagyl Echocardiogram R/O vegetations
[2017-10-23] MEDS: ACETAMINOPHEN 325 MG TABLET (FP) PO PRN (17:49)
[2017-10-24] MEDS ORDERED: PT OWN MED DRAWER 7, Y5N ONE ×3 (01:44→16:33)
[2017-10-24] MEDS: POTASSIUM CHLORIDE 20 MEQ in SODIUM CHLORIDE 0.45% 1,000 ML IVPB SCH ×4 (01:45→17:55)
[2017-10-24] MEDS: METRONIDAZOLE PREMIXED IVPB 250 MG/50 ML MG IVPB SCH ×3 (01:46→17:24)
[2017-10-24 06:06] LABS: SERUM IRON SATURATION 34 % (15-55); TOTAL IRON BINDING CAPACITY 137 ug/dL (250-450); UIBC 91 ug/dL (111-343)
--- NOTE | 2017-10-24 09:18 | PN ---
Progress Note, Physician History of Present Illness: comfortable no new issues denies pain afebrile repeat cultures -ve so far colostomy functioning. walks in room with walker. all f/u noted - Current Medication List Current Medications: Active Medications Acetaminophen (Tylenol -) 650 mg PO Q4H PRN PRN Reason: FEVER Last Admin: 10/23/17 17:49 Dose: 650 mg Carvedilol (Coreg -) 12.5 mg PO BID [facility] Last Admin: 10/23/17 23:12 Dose: 12.5 mg HCTZ/Losartan Potassium (Hyzaar -) 1 tab PO DAILY [facility] Last Admin: 10/23/17 10:12 Dose: 1 tab Heparin Sodium (Porcine) (Heparin -) 5,000 unit SQ BID [facility] Last Admin: 10/23/17 23:12 Dose: 5,000 unit Metronidazole (Flagyl 250mg Premixed Ivpb -) 250 mg in 50 mls @ 50 mls/hr IVPB Q8H-IV [facility] Last Admin: 10/24/17 01:46 Dose: 50 mls/hr Potassium Chloride 20 meq/ (Sodium Chloride) 1,010 mls @ 100 mls/hr IVPB Q10H [facility] Last Admin: 10/24/17 08:00 Dose: Not Given CEFTRIAXONE IN IS-OSM DEXTROSE (Ceftriaxone 2 Gm-D5w Bag) 2 gm in 50 mls @ 100 mls/hr IVPB DAILY [facility] Last Admin: 10/23/17 10:13 Dose: 100 mls/hr Ondansetron HCl (Zofran Injection) 4 mg IVPUSH Q6H PRN PRN Reason: NAUSEA AND/OR VOMITING Ondansetron HCl (Zofran Injection) 4 mg IVPUSH Q4H PRN PRN Reason: NAUSEA AND/OR VOMITING Witch Adela/Glycerin (Tucks Pads -) 1 pad TP Q4H PRN - Objective Vital Signs: Vital Signs Temperature 98.2 F 10/24/17 06:00 Pulse Rate 70 10/24/17 06:00 Respiratory Rate 18 10/24/17 06:00 Blood Pressure 135/92 10/24/17 06:00 O2 Sat by Pulse Oximetry (%) 100 10/23/17 21:00 Constitutional: Yes: No Distress, Calm Eyes: Yes: Conjunctiva Clear Neck: Yes: Supple Cardiovascular: Yes: Regular Rate and Rhythm Respiratory: Yes: CTA Bilaterally Gastrointestinal: Yes: Soft, Other (colostomy +) Edema: No Neurological: Yes: Alert Labs: CBC, BMP 10/23/17 07:30 10/22/17 06:40 INR, PTT INR 1.19 (0.82-1.09) H 10/14/17 06:00 - ....Imaging Other: Other (echo - no evidence of vegetations) Problem List - Problems (1) Anemia due to blood loss, chronic Code(s): D50.0 - IRON DEFICIENCY ANEMIA SECONDARY TO BLOOD LOSS (CHRONIC) (2) Bladder wall thickening Code(s): N32.89 - OTHER SPECIFIED DISORDERS OF BLADDER (3) Hypertension Code(s): I10 - ESSENTIAL (PRIMARY) HYPERTENSION (4) Large bowel obstruction Code(s): K56.609 - UNSP INTESTNL OBST, UNSP TO PARTIAL VERSUS COMPLETE OBST (5) Rectal mass Code(s): K62.9 - DISEASE OF ANUS AND RECTUM, UNSPECIFIED (6) Weight loss, non-intentional Code(s): R63.4 - ABNORMAL WEIGHT LOSS (7) Old cerebrovascular accident (CVA) without late effect Code(s): Z86.73 - PRSNL HX OF TIA (TIA), AND CEREB INFRC W/O RESID DEFICITS Assessment/Plan stable pod #10 pain ok bp ok pt ambulating in room strep bacteremia Continue antibiotics Follow-up blood cultures sent-- negative so far. echo - -ve for vegetations continue present care will follow port to be placed once infection is cleared./ cleared by i/d .
[2017-10-24] MEDS: CEFTRIAXONE IN IS-OSM DEXTROSE 2 GM/50 ML BAG IVPB SCH (09:46)
[2017-10-24] MEDS: CARVEDILOL 12.5 MG TABLET (FP) PO SCH ×2 (09:47→22:15)
[2017-10-24] MEDS: HEPARIN NA (PORCINE) 5,000 UNITS/ML 1ML VIAL SQ SCH ×2 (09:47→22:15)
[2017-10-24] MEDS: LOSARTAN 50MG/HCTZ 12.5MG 1 TAB (FP) PO SCH (09:47)
--- NOTE | 2017-10-24 16:40 | PN ---
Progress Note (short form) - Note Progress Note: Seen and examined chart reviewed events noted Constitutional: Yes: Well Nourished, No Distress, Calm Eyes: Yes: WNL, Conjunctiva Clear, EOM Intact HENT: Yes: Atraumatic, Normocephalic Neck: Yes: Supple, Trachea Midline Cardiovascular: Yes: Regular Rate and Rhythm Respiratory: Yes: Regular Gastrointestinal: incision+ ostomy bag+ Extremities: Yes: WNL Edema: No Neurological: Yes: Alert, Oriented Psychiatric: Yes: Alert, Oriented Last Vital Signs Temp Pulse Resp BP Pulse Ox 98.1 F 62 18 125/93 97 10/22/17 09:35 10/22/17 09:35 10/22/17 09:35 10/22/17 09:35 10/21/17 21:00 CBC, BMP 10/22/17 06:40 10/22/17 06:40 Current Medications Generic Name Dose Route Start Last Admin Trade Name Freq PRN Reason Stop Dose Admin Acetaminophen 650 mg 10/17/17 19:14 10/22/17 03:26 Tylenol - PO 650 mg Q4H PRN Administration FEVER Carvedilol 12.5 mg 10/16/17 11:00 10/22/17 11:17 Coreg - PO 12.5 mg BID AJ Administration HCTZ/Losartan Potassium 1 tab 10/17/17 10:15 10/22/17 11:17 Hyzaar - PO 1 tab DAILY AJ Administration Heparin Sodium (Porcine) 5,000 unit 10/15/17 11:00 10/22/17 11:17 Heparin - SQ 5,000 unit BID AJ Administration Metronidazole 250 mg in 50 mls @ 50 mls/hr 10/17/17 18:00 10/22/17 11:17 Flagyl 250mg Premixed Ivpb - IVPB 50 mls/hr Q8H-IV AJ Administration Potassium Chloride 20 meq/ 1,010 mls @ 100 mls/hr 10/18/17 11:45 10/22/17 05: 49 Sodium Chloride IVPB Not Given Q10H AJ CEFTRIAXONE IN IS-OSM DEXTROSE 2 gm in 50 mls @ 100 mls/hr 10/21/17 14:15 11:17 Ceftriaxone 2 Gm-D5w Bag IVPB 100 mls/hr DAILY [facility] Administration Ondansetron HCl 4 mg 10/14/17 11:18 Zofran Injection IVPUSH Q6H PRN NAUSEA AND/OR VOMITING Ondansetron HCl 4 mg 10/14/17 11:18 Zofran Injection IVPUSH Q4H PRN NAUSEA AND/OR VOMITING Witch Adela/Glycerin 1 pad 10/14/17 11:18 Tucks Pads - TP Q4H PRN 47 y/o patient with Carcinoma of rectosigmoid colon, with metastasis, to liver and lung. 1)Exploratory laparotomy,. 2) peritoneal biopsy. 3)wedge biopsy of liver,. 4 )Transverse colostomy. port as an out patient abx per ID for chemo once port is placed. pt aware. Problem List - Problems (1) Anemia due to blood loss, chronic Code(s): D50.0 - IRON DEFICIENCY ANEMIA SECONDARY TO BLOOD LOSS (CHRONIC) (2) Rectal mass Code(s): K62.9 - DISEASE OF ANUS AND RECTUM, UNSPECIFIED (3) Perirectal abscess Code(s): K61.1 - RECTAL ABSCESS (4) Large bowel obstruction Code(s): K56.609 - UNSP INTESTNL OBST, UNSP TO PARTIAL VERSUS COMPLETE OBST (5) Weight loss, non-intentional Code(s): R63.4 - ABNORMAL WEIGHT LOSS
[2017-10-24] MEDS: ACETAMINOPHEN 325 MG TABLET (FP) PO PRN (21:30)
[2017-10-25] MEDS ORDERED: PT OWN MED DRAWER 7, Y5N ONE ×2 (01:24→09:50)
[2017-10-25] MEDS: METRONIDAZOLE PREMIXED IVPB 250 MG/50 ML MG IVPB SCH ×3 (02:54→18:28)
[2017-10-25] MEDS: POTASSIUM CHLORIDE 20 MEQ in SODIUM CHLORIDE 0.45% 1,000 ML IVPB SCH (03:00)
[2017-10-25] MEDS: LOSARTAN 50MG/HCTZ 12.5MG 1 TAB (FP) PO SCH (09:57)
[2017-10-25] MEDS: CARVEDILOL 12.5 MG TABLET (FP) PO SCH ×2 (09:57→23:04)
[2017-10-25] MEDS: CEFTRIAXONE IN IS-OSM DEXTROSE 2 GM/50 ML BAG IVPB SCH (09:58)
[2017-10-25] MEDS: HEPARIN NA (PORCINE) 5,000 UNITS/ML 1ML VIAL SQ SCH ×2 (09:59→23:05)
--- NOTE | 2017-10-25 10:03 | PN ---
Progress Note (short form) - Note Progress Note: patient seen and examined No complaints Doing well Afebrile Vital Signs Temp 98.2 F 10/25/17 06:00 Pulse 64 10/25/17 06:00 Resp 18 10/25/17 06:00 BP 130/92 10/25/17 06:00 Pulse Ox 99 10/24/17 21:00 Intake & Output 10/24/17 10/24/17 10/25/17 11:59 23:59 11:59 Intake Total 1250 1150 1150 Balance 1250 1150 1150 Intake: IV 1100 1100 1100 1/2NS+20MEQ KCL 20 meq In 1100 1100 1,000 ml @ 100 mls/hr IV ASDIR AJ Rx#: [id number] SAILINE LOCK 1100 IVPB 150 50 50 Other: Voiding Method Toilet Toilet # Unmeasured Voids Void 3 3 2 Bowel Movement Yes: EARLY A.M. COLSOTOMY FUNCTIONED Active Medications Acetaminophen (Tylenol -) 650 mg PO Q4H PRN PRN Reason: FEVER Last Admin: 10/24/17 21:30 Dose: 650 mg Carvedilol (Coreg -) 12.5 mg PO BID [facility] Last Admin: 10/25/17 09:57 Dose: 12.5 mg HCTZ/Losartan Potassium (Hyzaar -) 1 tab PO DAILY [facility] Last Admin: 10/25/17 09:57 Dose: 1 tab Heparin Sodium (Porcine) (Heparin -) 5,000 unit SQ BID [facility] Last Admin: 10/25/17 09:59 Dose: 5,000 unit Metronidazole (Flagyl 250mg Premixed Ivpb -) 250 mg in 50 mls @ 50 mls/hr IVPB Q8H-IV [facility] Last Admin: 10/25/17 09:58 Dose: 50 mls/hr Potassium Chloride 20 meq/ (Sodium Chloride) 1,010 mls @ 100 mls/hr IVPB Q10H [facility] Last Admin: 10/25/17 03:00 Dose: 100 mls/hr CEFTRIAXONE IN IS-OSM DEXTROSE (Ceftriaxone 2 Gm-D5w Bag) 2 gm in 50 mls @ 100 mls/hr IVPB DAILY [facility] Last Admin: 10/25/17 09:58 Dose: 100 mls/hr Ondansetron HCl (Zofran Injection) 4 mg IVPUSH Q6H PRN PRN Reason: NAUSEA AND/OR VOMITING Ondansetron HCl (Zofran Injection) 4 mg IVPUSH Q4H PRN PRN Reason: NAUSEA AND/OR VOMITING Witch Adela/Glycerin (Tucks Pads -) 1 pad TP Q4H PRN CBC, BMP 10/23/17 07:30 10/22/17 06:40 Microbiology 10/20/17 18:50 Blood Culture - Preliminary Blood - Peripheral Venous NO GROWTH OBTAINED AFTER 96 HOURS, INCUBATION TO CONTINUE FOR 1 DAYS. 10/20/17 18:50 Blood Culture - Preliminary Blood - Peripheral Venous NO GROWTH OBTAINED AFTER 96 HOURS, INCUBATION TO CONTINUE FOR 1 DAYS. Physical Constitutional: Yes: No Distress,comfortable. Eyes: Yes: Conjunctiva Clear Neck: Yes: Supple Cardiovascular: Yes: Regular Rate and Rhythm Respiratory: Yes: CTA Bilaterally Gastrointestinal: Yes: Soft, colostomy bag + Edema: No Neurological: Yes: Alert Psychiatric: Yes: Alert Assessment/Plan pod #11 pain ok bp ok pt ambulating in room strep bacteremia Continue antibiotics Discussed with ID today--- Dr. Guerrero--- need at least 2 more days of antibiotics. Follow-up blood cultures sent-- negative so far continue present care will follow port to be placed once infection is cleared Dr Stapleton is away-- we will consult Dr. Scarlett Nice--- likely port on Saturday. Problem List - Problems (1) Anemia due to blood loss, chronic Code(s): D50.0 - IRON DEFICIENCY ANEMIA SECONDARY TO BLOOD LOSS (CHRONIC) (2) Bladder wall thickening Code(s): N32.89 - OTHER SPECIFIED DISORDERS OF BLADDER (3) Hypertension Code(s): I10 - ESSENTIAL (PRIMARY) HYPERTENSION (4) Large bowel obstruction Code(s): K56.609 - UNSP INTESTNL OBST, UNSP TO PARTIAL VERSUS COMPLETE OBST (5) Rectal mass Code(s): K62.9 - DISEASE OF ANUS AND RECTUM, UNSPECIFIED (6) Weight loss, non-intentional Code(s): R63.4 - ABNORMAL WEIGHT LOSS (7) Old cerebrovascular accident (CVA) without late effect Code(s): Z86.73 - PRSNL HX OF TIA (TIA), AND CEREB INFRC W/O RESID DEFICITS
--- NOTE | 2017-10-25 12:40 | PN ---
Progress Note (short form) - Note Progress Note: Seen and examined chart reviewed events noted Constitutional: Yes: Well Nourished, No Distress, Calm Eyes: Yes: WNL, Conjunctiva Clear, EOM Intact HENT: Yes: Atraumatic, Normocephalic Neck: Yes: Supple, Trachea Midline Cardiovascular: Yes: Regular Rate and Rhythm Respiratory: Yes: Regular Gastrointestinal: incision+ ostomy bag+ Extremities: Yes: WNL Edema: No Neurological: Yes: Alert, Oriented Psychiatric: Yes: Alert, Oriented Last Vital Signs Temp Pulse Resp BP Pulse Ox 98.1 F 62 18 125/93 97 10/22/17 09:35 10/22/17 09:35 10/22/17 09:35 10/22/17 09:35 10/21/17 21:00 CBC, BMP 10/22/17 06:40 10/22/17 06:40 Current Medications Generic Name Dose Route Start Last Admin Trade Name Freq PRN Reason Stop Dose Admin Acetaminophen 650 mg 10/17/17 19:14 10/22/17 03:26 Tylenol - PO 650 mg Q4H PRN Administration FEVER Carvedilol 12.5 mg 10/16/17 11:00 10/22/17 11:17 Coreg - PO 12.5 mg BID AJ Administration HCTZ/Losartan Potassium 1 tab 10/17/17 10:15 10/22/17 11:17 Hyzaar - PO 1 tab DAILY AJ Administration Heparin Sodium (Porcine) 5,000 unit 10/15/17 11:00 10/22/17 11:17 Heparin - SQ 5,000 unit BID AJ Administration Metronidazole 250 mg in 50 mls @ 50 mls/hr 10/17/17 18:00 10/22/17 11:17 Flagyl 250mg Premixed Ivpb - IVPB 50 mls/hr Q8H-IV AJ Administration Potassium Chloride 20 meq/ 1,010 mls @ 100 mls/hr 10/18/17 11:45 10/22/17 05: 49 Sodium Chloride IVPB Not Given Q10H AJ CEFTRIAXONE IN IS-OSM DEXTROSE 2 gm in 50 mls @ 100 mls/hr 10/21/17 14:15 11:17 Ceftriaxone 2 Gm-D5w Bag IVPB 100 mls/hr DAILY [facility] Administration Ondansetron HCl 4 mg 10/14/17 11:18 Zofran Injection IVPUSH Q6H PRN NAUSEA AND/OR VOMITING Ondansetron HCl 4 mg 10/14/17 11:18 Zofran Injection IVPUSH Q4H PRN NAUSEA AND/OR VOMITING Witch Adela/Glycerin 1 pad 10/14/17 11:18 Tucks Pads - TP Q4H PRN 47 y/o patient with Carcinoma of rectosigmoid colon, with metastasis, to liver and lung. 1)Exploratory laparotomy,. 2) peritoneal biopsy. 3)wedge biopsy of liver,. 4 )Transverse colostomy. for FOLOFX once finishes abx. as an OP. Aiming for early oct. Problem List - Problems (1) Anemia due to blood loss, chronic Code(s): D50.0 - IRON DEFICIENCY ANEMIA SECONDARY TO BLOOD LOSS (CHRONIC) (2) Rectal mass Code(s): K62.9 - DISEASE OF ANUS AND RECTUM, UNSPECIFIED (3) Perirectal abscess Code(s): K61.1 - RECTAL ABSCESS (4) Large bowel obstruction Code(s): K56.609 - UNSP INTESTNL OBST, UNSP TO PARTIAL VERSUS COMPLETE OBST (5) Weight loss, non-intentional Code(s): R63.4 - ABNORMAL WEIGHT LOSS
--- NOTE | 2017-10-25 16:14 | PN ---
Progress Note (short form) - Note Progress Note: VAscular Surgery Adenoca of rectosigmoid colon. Will be on stand by for port placement. Once cleared from ID standpoint, cory proceed. Maynor Nice DO
--- NOTE | 2017-10-25 16:14 | PN ---
Progress Note, Physician History of Present Illness: No c/o abdominal pain No c/o fever/chills Tolerating diet Afebrile Continues on IV antibiotics for streptococcal bacteremia, day#8 - Current Medication List Current Medications: Active Medications Acetaminophen (Tylenol -) 650 mg PO Q4H PRN PRN Reason: FEVER Last Admin: 10/24/17 21:30 Dose: 650 mg Carvedilol (Coreg -) 12.5 mg PO BID [facility] Last Admin: 10/25/17 09:57 Dose: 12.5 mg HCTZ/Losartan Potassium (Hyzaar -) 1 tab PO DAILY [facility] Last Admin: 10/25/17 09:57 Dose: 1 tab Heparin Sodium (Porcine) (Heparin -) 5,000 unit SQ BID [facility] Last Admin: 10/25/17 09:59 Dose: 5,000 unit Metronidazole (Flagyl 250mg Premixed Ivpb -) 250 mg in 50 mls @ 50 mls/hr IVPB Q8H-IV [facility] Last Admin: 10/25/17 09:58 Dose: 50 mls/hr CEFTRIAXONE IN IS-OSM DEXTROSE (Ceftriaxone 2 Gm-D5w Bag) 2 gm in 50 mls @ 100 mls/hr IVPB DAILY [facility] Last Admin: 10/25/17 09:58 Dose: 100 mls/hr Ondansetron HCl (Zofran Injection) 4 mg IVPUSH Q6H PRN PRN Reason: NAUSEA AND/OR VOMITING Ondansetron HCl (Zofran Injection) 4 mg IVPUSH Q4H PRN PRN Reason: NAUSEA AND/OR VOMITING Witch Adela/Glycerin (Tucks Pads -) 1 pad TP Q4H PRN - Objective Vital Signs: Vital Signs Temperature 98.6 F 10/25/17 14:54 Pulse Rate 82 10/25/17 14:54 Respiratory Rate 18 10/25/17 14:54 Blood Pressure 122/84 10/25/17 14:54 O2 Sat by Pulse Oximetry (%) 99 10/24/17 21:00 Constitutional: Yes: No Distress Eyes: Yes: Conjunctiva Clear Cardiovascular: Yes: Regular Rate and Rhythm, S1, S2 Respiratory: Yes: CTA Bilaterally Gastrointestinal: Yes: Normal Bowel Sounds, Soft, Other (+ surgical wound, ostomy). No: Tenderness Edema: No Labs: CBC, BMP 10/23/17 07:30 10/22/17 06:40 INR, PTT INR 1.19 (0.82-1.09) H 10/14/17 06:00 Assessment/Plan Group C strep bacteremia Post op laparotomy, colostomy Metastatic carcinoma Repeat BC no growth Continue ceftriaxone / flagyl additional 48hr
[2017-10-25] MEDS: ACETAMINOPHEN 325 MG TABLET (FP) PO PRN (23:04)
[2017-10-26] MEDS: METRONIDAZOLE PREMIXED IVPB 250 MG/50 ML MG IVPB SCH ×3 (02:52→17:40)
[2017-10-26] MEDS: CARVEDILOL 12.5 MG TABLET (FP) PO SCH ×2 (10:24→22:23)
[2017-10-26] MEDS: CEFTRIAXONE IN IS-OSM DEXTROSE 2 GM/50 ML BAG IVPB SCH (10:25)
[2017-10-26] MEDS: LOSARTAN 50MG/HCTZ 12.5MG 1 TAB (FP) PO SCH (10:25)
--- NOTE | 2017-10-26 14:35 | PN ---
Progress Note, Physician History of Present Illness: comfortable no new issues denies pain afebrile repeat cultures -ve so far colostomy functioning. walks in room . - Current Medication List Current Medications: Active Medications Acetaminophen (Tylenol -) 650 mg PO Q4H PRN PRN Reason: FEVER Last Admin: 10/25/17 23:04 Dose: 650 mg Carvedilol (Coreg -) 12.5 mg PO BID [facility] Last Admin: 10/26/17 10:24 Dose: 12.5 mg HCTZ/Losartan Potassium (Hyzaar -) 1 tab PO DAILY [facility] Last Admin: 10/26/17 10:25 Dose: 1 tab Metronidazole (Flagyl 250mg Premixed Ivpb -) 250 mg in 50 mls @ 50 mls/hr IVPB Q8H-IV [facility] Last Admin: 10/26/17 10:25 Dose: 50 mls/hr CEFTRIAXONE IN IS-OSM DEXTROSE (Ceftriaxone 2 Gm-D5w Bag) 2 gm in 50 mls @ 100 mls/hr IVPB DAILY [facility] Last Admin: 10/26/17 10:25 Dose: 100 mls/hr Ondansetron HCl (Zofran Injection) 4 mg IVPUSH Q6H PRN PRN Reason: NAUSEA AND/OR VOMITING Ondansetron HCl (Zofran Injection) 4 mg IVPUSH Q4H PRN PRN Reason: NAUSEA AND/OR VOMITING Witch Adela/Glycerin (Tucks Pads -) 1 pad TP Q4H PRN - Objective Vital Signs: Vital Signs Temperature 98.2 F 10/26/17 09:00 Pulse Rate 73 10/26/17 09:00 Respiratory Rate 18 10/26/17 09:00 Blood Pressure 133/83 10/26/17 09:00 O2 Sat by Pulse Oximetry (%) 100 10/25/17 21:00 Constitutional: Yes: No Distress Eyes: Yes: Conjunctiva Clear Neck: Yes: Supple Cardiovascular: Yes: Regular Rate and Rhythm Respiratory: Yes: CTA Bilaterally Gastrointestinal: Yes: Normal Bowel Sounds, Soft, Other (colostomy bag +) Edema: No Neurological: Yes: Alert Labs: CBC, BMP 10/23/17 07:30 10/22/17 06:40 INR, PTT INR 1.19 (0.82-1.09) H 10/14/17 06:00 Problem List - Problems (1) Anemia due to blood loss, chronic Code(s): D50.0 - IRON DEFICIENCY ANEMIA SECONDARY TO BLOOD LOSS (CHRONIC) (2) Bladder wall thickening Code(s): N32.89 - OTHER SPECIFIED DISORDERS OF BLADDER (3) Hypertension Code(s): I10 - ESSENTIAL (PRIMARY) HYPERTENSION (4) Large bowel obstruction Code(s): K56.609 - UNSP INTESTNL OBST, UNSP TO PARTIAL VERSUS COMPLETE OBST (5) Rectal mass Code(s): K62.9 - DISEASE OF ANUS AND RECTUM, UNSPECIFIED (6) Weight loss, non-intentional Code(s): R63.4 - ABNORMAL WEIGHT LOSS (7) Old cerebrovascular accident (CVA) without late effect Code(s): Z86.73 - PRSNL HX OF TIA (TIA), AND CEREB INFRC W/O RESID DEFICITS Assessment/Plan stable pod #11 pain ok bp ok pt ambulating in room strep bacteremia Continue antibiotics-x 24 hours Follow-up blood cultures sent-- negative echo - -ve for vegetations continue present care port likely on saturday Discussed with Dr. Iraheta yesterday Discussed with Dr. Cassie scott also today.
[2017-10-27] MEDS: METRONIDAZOLE PREMIXED IVPB 250 MG/50 ML MG IVPB SCH ×3 (02:52→17:04)
[2017-10-27] MEDS ORDERED: PT OWN MED DRAWER 7, Y5N ONE (09:32)
[2017-10-27] MEDS: LOSARTAN 50MG/HCTZ 12.5MG 1 TAB (FP) PO SCH (09:33)
[2017-10-27] MEDS: CARVEDILOL 12.5 MG TABLET (FP) PO SCH ×2 (09:33→22:11)
[2017-10-27] MEDS: CEFTRIAXONE IN IS-OSM DEXTROSE 2 GM/50 ML BAG IVPB SCH (09:34)
--- NOTE | 2017-10-27 12:06 | PN ---
Progress Note, Physician History of Present Illness: comfortable no new issues denies pain afebrile repeat cultures -ve colostomy functioning. - Current Medication List Current Medications: Active Medications Acetaminophen (Tylenol -) 650 mg PO Q4H PRN PRN Reason: FEVER Last Admin: 10/25/17 23:04 Dose: 650 mg Carvedilol (Coreg -) 12.5 mg PO BID [facility] Last Admin: 10/27/17 09:33 Dose: 12.5 mg HCTZ/Losartan Potassium (Hyzaar -) 1 tab PO DAILY [facility] Last Admin: 10/27/17 09:33 Dose: 1 tab Metronidazole (Flagyl 250mg Premixed Ivpb -) 250 mg in 50 mls @ 50 mls/hr IVPB Q8H-IV [facility] Last Admin: 10/27/17 09:33 Dose: 50 mls/hr CEFTRIAXONE IN IS-OSM DEXTROSE (Ceftriaxone 2 Gm-D5w Bag) 2 gm in 50 mls @ 100 mls/hr IVPB DAILY [facility] Last Admin: 10/27/17 09:34 Dose: 100 mls/hr Ondansetron HCl (Zofran Injection) 4 mg IVPUSH Q6H PRN PRN Reason: NAUSEA AND/OR VOMITING Ondansetron HCl (Zofran Injection) 4 mg IVPUSH Q4H PRN PRN Reason: NAUSEA AND/OR VOMITING Witch Adela/Glycerin (Tucks Pads -) 1 pad TP Q4H PRN - Objective Vital Signs: Vital Signs Temperature 97.3 F L 10/27/17 06:20 Pulse Rate 68 10/27/17 06:20 Respiratory Rate 18 10/27/17 06:20 Blood Pressure 117/91 10/27/17 06:20 O2 Sat by Pulse Oximetry (%) 100 10/26/17 21:00 Constitutional: Yes: No Distress, Calm Cardiovascular: Yes: Regular Rate and Rhythm Respiratory: Yes: CTA Bilaterally Gastrointestinal: Yes: Normal Bowel Sounds, Soft, Other (colostomy +) Edema: No Neurological: Yes: Alert Labs: CBC, BMP 10/23/17 07:30 10/22/17 06:40 INR, PTT INR 1.19 (0.82-1.09) H 10/14/17 06:00 Problem List - Problems (1) Anemia due to blood loss, chronic Code(s): D50.0 - IRON DEFICIENCY ANEMIA SECONDARY TO BLOOD LOSS (CHRONIC) (2) Bladder wall thickening Code(s): N32.89 - OTHER SPECIFIED DISORDERS OF BLADDER (3) Hypertension Code(s): I10 - ESSENTIAL (PRIMARY) HYPERTENSION (4) Large bowel obstruction Code(s): K56.609 - UNSP INTESTNL OBST, UNSP TO PARTIAL VERSUS COMPLETE OBST (5) Rectal mass Code(s): K62.9 - DISEASE OF ANUS AND RECTUM, UNSPECIFIED (6) Weight loss, non-intentional Code(s): R63.4 - ABNORMAL WEIGHT LOSS (7) Old cerebrovascular accident (CVA) without late effect Code(s): Z86.73 - PRSNL HX OF TIA (TIA), AND CEREB INFRC W/O RESID DEFICITS Assessment/Plan stable pod #11 pain ok bp ok pt ambulating in room strep bacteremia Continue antibiotics-today Follow-up blood cultures sent-- negative echo - -ve for vegetations continue present care port tomorrow. Had discussed with Dr. Guerrero also Pt in agreement will follow npo after midnight
[2017-10-27 13:00] LABS: BASO % 2.6 % (0-2.0); HEMATOCRIT 34.6 % (35.4-49); HEMOGLOBIN 11.3 GM/dL (11.7-16.9); LYMPH % 27.5 % (8-40); MCH 26.6 pg (25.7-33.7); MCHC 32.6 g/dl (32.0-35.9); MEAN CELL VOLUME 81.7 fl (80-96); MEAN PLT VOLUME 7.5 fl (7.5-11.1); MONO % 11.5 % (3.8-10.2); NEUT % 56.4 % (42.8-82.8); PLATELET COUNT 388 K/MM3 (134-434); RBC 4.23 M/mm3 (4.00-5.60); RDW 16.4 % (11.9-15.9); WHITE BLOOD COUNT 6.1 K/mm3 (4.0-10.0)
[2017-10-27 13:15] LABS: ALBUMIN 2.6 g/dl (3.4-5.0); ALK PHOS 155 U/L (45-117); ANION GAP 8 (8-16); BILIRUBIN,TOTAL 0.3 mg/dL (0.2-1.0); BLOOD UREA NITROGEN 11 mg/dL (7-18); CALCIUM 7.9 mg/dL (8.5-10.1); CHLORIDE 104 mmol/L (98-107); CO2 27 mmol/L (21-32); CREATININE 0.9 mg/dL (0.7-1.3); GLUCOSE,RANDOM 122 mg/dL (74-106); POTASSIUM 3.9 mmol/L (3.5-5.1); SGOT/AST 13 U/L (15-37); SGPT/ALT 18 U/L (12-78); SODIUM 139 mmol/L (136-145); TOT PROT 6.2 g/dl (6.4-8.2)
[2017-10-27] MEDS: ACETAMINOPHEN 325 MG TABLET (FP) PO PRN (20:19)
[2017-10-28] MEDS: METRONIDAZOLE PREMIXED IVPB 250 MG/50 ML MG IVPB SCH ×3 (01:48→18:05)
[2017-10-28] MEDS ORDERED: PT OWN MED DRAWER 7, Y5N ONE ×2 (08:50→15:40)
--- NOTE | 2017-10-28 09:18 | PN ---
Progress Note, Physician History of Present Illness: comfortable no complains denies pain afebrile repeat cultures -ve colostomy functioning. for port today. - Current Medication List Current Medications: Active Medications Acetaminophen (Tylenol -) 650 mg PO Q4H PRN PRN Reason: FEVER Last Admin: 10/27/17 20:19 Dose: 650 mg Carvedilol (Coreg -) 12.5 mg PO BID [facility] Last Admin: 10/27/17 22:11 Dose: 12.5 mg HCTZ/Losartan Potassium (Hyzaar -) 1 tab PO DAILY [facility] Last Admin: 10/27/17 09:33 Dose: 1 tab Metronidazole (Flagyl 250mg Premixed Ivpb -) 250 mg in 50 mls @ 50 mls/hr IVPB Q8H-IV [facility] Last Admin: 10/28/17 01:48 Dose: 50 mls/hr CEFTRIAXONE IN IS-OSM DEXTROSE (Ceftriaxone 2 Gm-D5w Bag) 2 gm in 50 mls @ 100 mls/hr IVPB DAILY [facility] Last Admin: 10/27/17 09:34 Dose: 100 mls/hr Ondansetron HCl (Zofran Injection) 4 mg IVPUSH Q6H PRN PRN Reason: NAUSEA AND/OR VOMITING Ondansetron HCl (Zofran Injection) 4 mg IVPUSH Q4H PRN PRN Reason: NAUSEA AND/OR VOMITING Witch Adela/Glycerin (Tucks Pads -) 1 pad TP Q4H PRN - Objective Vital Signs: Vital Signs Temperature 98.4 F 10/28/17 06:00 Pulse Rate 70 10/28/17 06:00 Respiratory Rate 18 10/28/17 06:00 Blood Pressure 117/84 10/28/17 06:00 O2 Sat by Pulse Oximetry (%) 100 10/27/17 21:00 Constitutional: Yes: No Distress, Calm Neck: Yes: Supple Cardiovascular: Yes: Regular Rate and Rhythm Respiratory: Yes: CTA Bilaterally Gastrointestinal: Yes: Soft, Other (s/p colostomy) ...Rectal Exam: No: Other Edema: No Neurological: Yes: Alert Labs: CBC, BMP 10/27/17 12:45 10/27/17 12:45 INR, PTT INR 1.19 (0.82-1.09) H 10/14/17 06:00 Problem List - Problems (1) Anemia due to blood loss, chronic Code(s): D50.0 - IRON DEFICIENCY ANEMIA SECONDARY TO BLOOD LOSS (CHRONIC) (2) Bladder wall thickening Code(s): N32.89 - OTHER SPECIFIED DISORDERS OF BLADDER (3) Hypertension Code(s): I10 - ESSENTIAL (PRIMARY) HYPERTENSION (4) Large bowel obstruction Code(s): K56.609 - UNSP INTESTNL OBST, UNSP TO PARTIAL VERSUS COMPLETE OBST (5) Rectal mass Code(s): K62.9 - DISEASE OF ANUS AND RECTUM, UNSPECIFIED (6) Weight loss, non-intentional Code(s): R63.4 - ABNORMAL WEIGHT LOSS (7) Old cerebrovascular accident (CVA) without late effect Code(s): Z86.73 - PRSNL HX OF TIA (TIA), AND CEREB INFRC W/O RESID DEFICITS Assessment/Plan stable continue present care for port today will follow
[2017-10-28] MEDS ORDERED: SUCCINYLCHOLINE CHLORIDE 200 MG/10 ML VIAL ONE (09:21)
[2017-10-28] MEDS ORDERED: PROPOFOL 20 ML ONE ×4 (09:21→09:22)
[2017-10-28] MEDS ORDERED: ePHEDrine SULFATE 50 MG/1 ML AMPULE ONE (09:21)
[2017-10-28] MEDS ORDERED: MIDAZOLAM HCL 2 MG/2 ML SINGLE DOSE VIAL ONE (09:21)
[2017-10-28] MEDS: LOSARTAN 50MG/HCTZ 12.5MG 1 TAB (FP) PO SCH (09:24)
[2017-10-28] MEDS: CEFTRIAXONE IN IS-OSM DEXTROSE 2 GM/50 ML BAG IVPB SCH (09:24)
[2017-10-28] MEDS: CARVEDILOL 12.5 MG TABLET (FP) PO SCH ×2 (09:24→22:16)
[2017-10-28] MEDS ORDERED: LIDOCAINE HCL 1%, 10 MG/ML (20ML VIAL) ONE (09:30)
[2017-10-28] MEDS ORDERED: LACTATED RINGERS SOLUTION 1,000 ML IV SCH (10:00)
--- NOTE | 2017-10-28 11:00 | OP ---
Operative Note - Note: Operative Date: 10/28/17 Pre-Operative Diagnosis: colon cancer Operation: insertion of port Post-Operative Diagnosis: Same as Pre-op Surgeon: Maynor Nice Anesthesia: Fractional Estimated Blood Loss (mls): 10 Operative Report Dictated: Yes
[2017-10-28] MEDS ORDERED: ACETAMINOPHEN 325 MG TABLET (FP) PO PRN (12:46)
[2017-10-28] MEDS ORDERED: WITCH HAZEL 50% (TUCKS) 40 PAD/JAR PAD TP PRN (12:46)
[2017-10-28] MEDS ORDERED: ONDANSETRON 4 MG/2 ML VIAL IVPUSH PRN ×2 (12:46)
[2017-10-28] MEDS: LACTATED RINGERS SOLUTION 1,000 ML IV SCH (15:41)
--- NOTE | 2017-10-28 16:19 | PN ---
Progress Note, Physician History of Present Illness: S/P port placement No c/o pain No fever/ chills - Current Medication List Current Medications: Active Medications Acetaminophen (Tylenol -) 650 mg PO Q4H PRN PRN Reason: FEVER Carvedilol (Coreg -) 12.5 mg PO BID AJ Fentanyl (Sublimaze Injection -) 50 mcg IVPUSH [id number] PRN PRN Reason: PAIN-PACU ORDER X 4 DOSES ONLY HCTZ/Losartan Potassium (Hyzaar -) 1 tab PO DAILY [facility] CEFTRIAXONE IN IS-OSM DEXTROSE (Ceftriaxone 2 Gm-D5w Bag) 2 gm in 50 mls @ 100 mls/hr IVPB DAILY AJ Metronidazole (Flagyl 250mg Premixed Ivpb -) 250 mg in 50 mls @ 50 mls/hr IVPB Q8H-IV [facility] Lactated Ringer's (Lactated Ringers Solution) 1,000 mls @ 75 mls/hr IV ASDIR AJ Last Admin: 10/28/17 15:41 Dose: 75 mls/hr Ondansetron HCl (Zofran Injection) 4 mg IVPUSH Q6H PRN PRN Reason: NAUSEA AND/OR VOMITING Ondansetron HCl (Zofran Injection) 4 mg IVPUSH Q4H PRN PRN Reason: NAUSEA AND/OR VOMITING Witch Adela/Glycerin (Tucks Pads -) 1 pad TP Q4H PRN - Objective Vital Signs: Vital Signs Temperature 97.7 F 10/28/17 12:15 Pulse Rate 62 10/28/17 12:15 Respiratory Rate 16 10/28/17 12:15 Blood Pressure 120/80 10/28/17 12:15 O2 Sat by Pulse Oximetry (%) 99 10/28/17 12:00 Constitutional: Yes: No Distress, Cachectic Cardiovascular: Yes: Regular Rate and Rhythm, S1, S2 Respiratory: Yes: CTA Bilaterally Gastrointestinal: Yes: Normal Bowel Sounds, Soft. No: Tenderness Edema: No Labs: CBC, BMP 10/27/17 12:45 10/27/17 12:45 INR, PTT INR 1.19 (0.82-1.09) H 10/14/17 06:00 Assessment/Plan Group C strep bacteremia Post op laparotomy, colostomy Metastatic carcinoma S/P port placement Continue ceftriaxone / flagyl additional 24hr
[2017-10-29] MEDS: LACTATED RINGERS SOLUTION 1,000 ML IV SCH (01:32)
[2017-10-29] MEDS: METRONIDAZOLE PREMIXED IVPB 250 MG/50 ML MG IVPB SCH ×2 (01:33→10:26)
--- NOTE | 2017-10-29 08:06 | PN ---
Progress Note (short form) - Note Progress Note: POD #1 Alert. Doing well. Resting comfortably without complaint. AVSS. Afebrile. Gen: nad Chest: dressing c/d/i. No hematoma Problem List - Problems (1) Adenocarcinoma Assessment/Plan: POD #1 s/p Portocath insertion No further surgical intervention Cont medical management Re-consult prn On behalf of Dr. Nice, thank you for the opportunity to participate in your patient's care. Code(s): C80.1 - MALIGNANT (PRIMARY) NEOPLASM, UNSPECIFIED
--- NOTE | 2017-10-29 08:58 | PN ---
Progress Note, Physician History of Present Illness: pod # 1- port placement comfortable no complains denies pain afebrile wants to go home colostomy functioning. - Current Medication List Current Medications: Active Medications Acetaminophen (Tylenol -) 650 mg PO Q4H PRN PRN Reason: FEVER Carvedilol (Coreg -) 12.5 mg PO BID [facility] Last Admin: 10/28/17 22:16 Dose: 12.5 mg Fentanyl (Sublimaze Injection -) 50 mcg IVPUSH [id number] PRN PRN Reason: PAIN-PACU ORDER X 4 DOSES ONLY HCTZ/Losartan Potassium (Hyzaar -) 1 tab PO DAILY [facility] CEFTRIAXONE IN IS-OSM DEXTROSE (Ceftriaxone 2 Gm-D5w Bag) 2 gm in 50 mls @ 100 mls/hr IVPB DAILY AJ Metronidazole (Flagyl 250mg Premixed Ivpb -) 250 mg in 50 mls @ 50 mls/hr IVPB Q8H-IV [facility] Last Admin: 10/29/17 01:33 Dose: 50 mls/hr Lactated Ringer's (Lactated Ringers Solution) 1,000 mls @ 75 mls/hr IV ASDIR [facility] Last Admin: 10/29/17 01:32 Dose: 75 mls/hr Ondansetron HCl (Zofran Injection) 4 mg IVPUSH Q6H PRN PRN Reason: NAUSEA AND/OR VOMITING Ondansetron HCl (Zofran Injection) 4 mg IVPUSH Q4H PRN PRN Reason: NAUSEA AND/OR VOMITING Witch Adela/Glycerin (Tucks Pads -) 1 pad TP Q4H PRN - Objective Vital Signs: Vital Signs Temperature 98.6 F 10/29/17 06:00 Pulse Rate 74 10/29/17 06:00 Respiratory Rate 18 10/29/17 06:00 Blood Pressure 132/91 10/29/17 06:00 O2 Sat by Pulse Oximetry (%) 99 10/28/17 21:00 Constitutional: Yes: No Distress, Anxious (wants to go home) Eyes: Yes: Conjunctiva Clear Neck: Yes: Supple Cardiovascular: Yes: Regular Rate and Rhythm Respiratory: Yes: CTA Bilaterally Gastrointestinal: Yes: Soft Edema: No Neurological: Yes: Alert Labs: CBC, BMP 10/27/17 12:45 10/27/17 12:45 INR, PTT INR 1.19 (0.82-1.09) H 10/14/17 06:00 Problem List - Problems (1) Anemia due to blood loss, chronic Code(s): D50.0 - IRON DEFICIENCY ANEMIA SECONDARY TO BLOOD LOSS (CHRONIC) (2) Bladder wall thickening Code(s): N32.89 - OTHER SPECIFIED DISORDERS OF BLADDER (3) Hypertension Code(s): I10 - ESSENTIAL (PRIMARY) HYPERTENSION (4) Large bowel obstruction Code(s): K56.609 - UNSP INTESTNL OBST, UNSP TO PARTIAL VERSUS COMPLETE OBST (5) Rectal mass Code(s): K62.9 - DISEASE OF ANUS AND RECTUM, UNSPECIFIED (6) Weight loss, non-intentional Code(s): R63.4 - ABNORMAL WEIGHT LOSS (7) Old cerebrovascular accident (CVA) without late effect Code(s): Z86.73 - PRSNL HX OF TIA (TIA), AND CEREB INFRC W/O RESID DEFICITS Assessment/Plan stable s/p port placement i/d f/u noted abx today dc planning anticipate d/c later today or tomorrow. will discuss with i/d continue present care teaching for colostomy care. will follow
--- NOTE | 2017-10-29 09:09 | DS ---
Physical Examination Vital Signs: Vital Signs Temperature 98.6 F 10/29/17 06:00 Pulse Rate 74 10/29/17 06:00 Respiratory Rate 18 10/29/17 06:00 Blood Pressure 132/91 10/29/17 06:00 O2 Sat by Pulse Oximetry (%) 99 10/28/17 21:00 Findings/Remarks: see today's progress note. Labs: CBC, BMP 10/27/17 12:45 10/27/17 12:45 Discharge Summary Reason For Visit: DIARRHEA ACUTE COLITIS PERIRECTAL ABSCESS Current Active Problems Acute colitis (Acute) Adenocarcinoma (Acute) Anemia due to blood loss, chronic (Acute) Bladder wall thickening (Acute) CVA (cerebral vascular accident) (Acute) Diarrhea (Acute) Hypertension (Acute) Large bowel obstruction (Acute) Lung nodules (Acute) Narrowing of stools (Acute) Old cerebrovascular accident (CVA) without late effect (Acute) Perirectal abscess (Acute) Rectal mass (Acute) Weight loss, non-intentional (Acute) Hospital Course: patient admitted for diarrhea Workup showed metastatic adenocarcinoma in summary 47 y/o patient with Carcinoma of rectosigmoid colon, with metastasis, to liver and lung. patient underwent 1)Exploratory laparotomy,. 2) peritoneal biopsy. 3)wedge biopsy of liver,. 4 )Transverse colostomy. 5--port placement Patient also Developed fever during the stay Found to have strep bacteremia Treated with antibiotics Echo was done--- and no evidence of vegetation Infectious disease also followed Finishing antibiotics today Discharge home today--and cleared by ID Patient to follow with his PMD as well as oncology team--anticipated to start on chemotherapy first week of October All above discussed by me in detail with patient. Patient is in agreement Medications reconciled. Discussed with nursing staff also. Discharge time--35 minute--in documenting examining as well as coordinating care. Condition: Stable - Instructions Referrals: Hallie Nice MD [Primary Care Provider] - Disposition: HOME - Home Medications Comprehensive Discharge Medication List: Ambulatory Orders Losartan/Hydrochlorothiazide [Hyzaar 100-25 Tablet] 1 each PO DAILY #14 tablet 11/18/14 Carvedilol [Coreg -] 12.5 mg PO BID #28 tablet 09/18/16 Acetaminophen [Tylenol .Regular Strength -] 650 mg PO Q4H PRN tablet 10/29/17
--- NOTE | 2017-10-29 09:37 | PN ---
Progress Note, Physician Chief Complaint: Pt. doing well, has no anesthesia complaints. - Current Medication List Current Medications: Active Medications Acetaminophen (Tylenol -) 650 mg PO Q4H PRN PRN Reason: FEVER Carvedilol (Coreg -) 12.5 mg PO BID [facility] Last Admin: 10/28/17 22:16 Dose: 12.5 mg Fentanyl (Sublimaze Injection -) 50 mcg IVPUSH [id number] PRN PRN Reason: PAIN-PACU ORDER X 4 DOSES ONLY HCTZ/Losartan Potassium (Hyzaar -) 1 tab PO DAILY [facility] CEFTRIAXONE IN IS-OSM DEXTROSE (Ceftriaxone 2 Gm-D5w Bag) 2 gm in 50 mls @ 100 mls/hr IVPB DAILY [facility] Metronidazole (Flagyl 250mg Premixed Ivpb -) 250 mg in 50 mls @ 50 mls/hr IVPB Q8H-IV [facility] Last Admin: 10/29/17 01:33 Dose: 50 mls/hr Lactated Ringer's (Lactated Ringers Solution) 1,000 mls @ 75 mls/hr IV ASDIR [facility] Last Admin: 10/29/17 01:32 Dose: 75 mls/hr Ondansetron HCl (Zofran Injection) 4 mg IVPUSH Q6H PRN PRN Reason: NAUSEA AND/OR VOMITING Ondansetron HCl (Zofran Injection) 4 mg IVPUSH Q4H PRN PRN Reason: NAUSEA AND/OR VOMITING Witch Adela/Glycerin (Tucks Pads -) 1 pad TP Q4H PRN - Objective Vital Signs: Vital Signs Temperature 98.6 F 10/29/17 06:00 Pulse Rate 74 10/29/17 06:00 Respiratory Rate 18 10/29/17 06:00 Blood Pressure 132/91 10/29/17 06:00 O2 Sat by Pulse Oximetry (%) 99 10/28/17 21:00 Constitutional: Yes: Well Nourished, No Distress, Calm Musculoskeletal: Yes: WNL Neurological: Yes: WNL, Alert, Oriented Labs: CBC, BMP 10/27/17 12:45 10/27/17 12:45 INR, PTT INR 1.19 (0.82-1.09) H 10/14/17 06:00 Assessment/Plan POD#1 s/p port-a-cath placement under MAC, doing well. D/C from anesthesia care.
[2017-10-29] MEDS ORDERED: LOSARTAN 50MG/HCTZ 12.5MG 1 TAB (FP) PO SCH (10:00)
[2017-10-29] MEDS ORDERED: CEFTRIAXONE IN IS-OSM DEXTROSE 2 GM/50 ML BAG IVPB SCH (10:00)
[2017-10-29] MEDS: CARVEDILOL 12.5 MG TABLET (FP) PO SCH (10:25)
[2017-10-29 15:33] VITALS: BP 128/86; PULSE 77; TEMP 98.4
--- NOTE | 2017-10-29 15:48 | PN ---
Progress Note (short form) - Note Progress Note: Seen and examined chart reviewed events noted s/o port Constitutional: Yes: Well Nourished, No Distress, Calm Eyes: Yes: WNL, Conjunctiva Clear, EOM Intact HENT: Yes: Atraumatic, Normocephalic Neck: Yes: Supple, Trachea Midline Cardiovascular: Yes: Regular Rate and Rhythm Respiratory: Yes: Regular Gastrointestinal: incision+ ostomy bag+ Extremities: Yes: WNL Edema: No Neurological: Yes: Alert, Oriented Psychiatric: Yes: Alert, Oriented Last Vital Signs Temp Pulse Resp BP Pulse Ox 98.4 F 77 18 128/86 99 10/29/17 15:31 10/29/17 15:31 10/29/17 15:31 10/29/17 15:31 10/29/17 09:00 CBC, BMP 10/27/17 12:45 10/27/17 12:45 Current Medications Generic Name Dose Route Start Last Admin Trade Name Freq PRN Reason Stop Dose Admin Acetaminophen 650 mg 10/28/17 12:46 Tylenol - PO Q4H PRN FEVER Carvedilol 12.5 mg 10/28/17 22:00 10/29/17 10:25 Coreg - PO 12.5 mg BID AJ Administration Fentanyl 50 mcg 10/28/17 12:46 Sublimaze Injection - IVPUSH [id number] PRN PAIN-PACU ORDER X 4 DOSES ONLY HCTZ/Losartan Potassium 1 tab 10/29/17 10:00 10/29/17 10:24 Hyzaar - PO 1 tab DAILY AJ Administration CEFTRIAXONE IN IS-OSM DEXTROSE 2 gm in 50 mls @ 100 mls/hr 10/29/17 10:00 10:25 Ceftriaxone 2 Gm-D5w Bag IVPB 100 mls/hr DAILY AJ Administration Metronidazole 250 mg in 50 mls @ 50 mls/hr 10/28/17 18:00 10/29/17 10:26 Flagyl 250mg Premixed Ivpb - IVPB 50 mls/hr Q8H-IV AJ Administration Lactated Ringer's 1,000 mls @ 75 mls/hr 10/28/17 12:46 10/29/17 01:32 Lactated Ringers Solution IV 75 mls/hr ASDIR AJ Administration Ondansetron HCl 4 mg 10/28/17 12:46 Zofran Injection IVPUSH Q6H PRN NAUSEA AND/OR VOMITING Ondansetron HCl 4 mg 10/28/17 12:46 Zofran Injection IVPUSH Q4H PRN NAUSEA AND/OR VOMITING Witch Adela/Glycerin 1 pad 10/28/17 12:46 Tucks Pads - TP Q4H PRN 47 y/o patient with Carcinoma of rectosigmoid colon, with metastasis, to liver and lung. 1)Exploratory laparotomy,. 2) peritoneal biopsy. 3)wedge biopsy of liver,. 4 )Transverse colostomy. for FOLOFX in the OP setting d/w pt Problem List - Problems (1) Anemia due to blood loss, chronic Code(s): D50.0 - IRON DEFICIENCY ANEMIA SECONDARY TO BLOOD LOSS (CHRONIC) (2) Rectal mass Code(s): K62.9 - DISEASE OF ANUS AND RECTUM, UNSPECIFIED (3) Perirectal abscess Code(s): K61.1 - RECTAL ABSCESS (4) Large bowel obstruction Code(s): K56.609 - UNSP INTESTNL OBST, UNSP TO PARTIAL VERSUS COMPLETE OBST (5) Weight loss, non-intentional Code(s): R63.4 - ABNORMAL WEIGHT LOSS
--- NOTE | 2017-10-31 07:47 | OP ---
DATE OF OPERATION: 10/28/2017 PREOPERATIVE DIAGNOSIS: Colon cancer with metastasis. POSTOPERATIVE DIAGNOSIS: Colon cancer with metastasis. PROCEDURE: Insertion of Port-A-Cath. SURGEON: Maynor Encinas DO ANESTHESIA: Fractional. BLOOD LOSS: 10 mL. INDICATION FOR PROCEDURE: The patient is a 47-year-old male who has recently had abdominal surgery for rectosigmoid cancer with metastasis to the liver and lung. He now needs a Port-A-Cath insertion for chemotherapy infusion. Patient was consented for the procedure, understanding all risks, benefits, and alternatives, then taken to the operating room. DESCRIPTION OF PROCEDURE: Once in the operating room, he was laid on the operating table in supine manner. The area of the right neck and chest was prepped and draped in a sterile surgical manner. We then under ultrasound guidance visualized the right internal jugular vein and 10 mL of lidocaine 1% was injected there. We then took our Micropuncture needle and punctured the right internal jugular vein, and a Micropuncture wire was inserted. Micropuncture sheath was inserted, and a 0.035 floppy guidewire was inserted under fluoroscopy. We then went below the clavicle and onto the chest wall, and 10 mL of lidocaine 1% was injected there. We then made a 5-cm incision using a 15-blade. Bovie electrocautery was used to control hemostasis, and using a vein retractor we were able to create a pocket for our Port-A-Cath. We then went ahead and took an 11-blade and made a 1-cm incision at the puncture site. We then went ahead and tunneled the Port-A-Cath up to the puncture site, and the port fit nicely in our pocket. We then cut the catheter to size. We then placed our breakaway sheath over the guidewire into the vein under fluoroscopy and the cannula and guidewire were removed. Catheter was placed inside the sheath. Sheath was broken away as the catheter was placed inside the vein. outside the right atrium. We then took a Gonzalez needle and dawna back on the port, and there was good flow. Heparinized saline was injected and units of IV heparin was injected to the port. We then took 3-0 silk, and 2 simple stitches were used to anchor our port to subcutaneous tissue. Vicryl 3-0 was used and the subcutaneous tissue was approximated in an interrupted manner, and the skin was closed with 4-0 Biosyn in a subcuticular running fashion. Biosyn 4-0 in 2 simple stitches was placed at the puncture site. Steri-Strips were placed at the puncture site. Steri-Strips were placed on our incision, 4 x 4's, Tegaderms were placed. The patient tolerated the procedure with no complications. Patient transferred to PACU in stable condition where chest x-ray will be ordered. MAYNOR ENCINAS DO [id number]
--- NOTE | 2017-10-31 10:01 | OP ---
DATE OF OPERATION: 10/28/2017 PREOPERATIVE DIAGNOSIS: Colon cancer with metastases to liver and lung. POSTOPERATIVE DIAGNOSIS: Colon cancer with metastases to liver and lung. PROCEDURE: Insertion of Port-A-Cath. SURGEON: Maynor Encinas D.O. ANESTHESIA: Fractional. BLOOD LOSS: 20 mL. INDICATION: The patient is a 47-year-old male with adenocarcinoma of the colon with metastases to the lung and to the liver. It is felt that he needed initiation of chemotherapy. Vascular surgery was consulted for port placement. Patient was consented for procedure understanding all risks, benefits, and alternatives and then taken to the operating room. DESCRIPTION OF PROCEDURE: Once in the operating room, patient was laid on the operating table in a supine manner, and the area of the right neck and chest prepped and draped in a sterile surgical manner. Then under ultrasound guidance, we visualized the right internal jugular vein and 10 mL of lidocaine 1% was injected the area. We then took our Micropuncture needle and punctured the right internal jugular vein. A Micropuncture wire was inserted. Then a micropuncture sheath was inserted. We then went below the clavicle and 10 mL of lidocaine 1% was injected below the clavicle. We then went ahead and made a 5-cm incision using a 15 blade. Bovie electrocautery was used to control hemostasis. retractor and created a pocket for our Port-A-Cath. We then took an 11 blade and made a 1-cm incision at the puncture site. We then tunneled our Port-A-Cath catheter up to the puncture site and placed the port inside our pocket. We then cut our catheter to size under fluoroscopy. We then went ahead and placed our break-away sheath over the guidewire into the vein. Inner cannula and guidewire were removed. Catheter was placed inside the sheath. The sheath was broken away as the catheter was placed inside the vein. Neck of the catheter was atrium. We then took a Gonzalez needle and dawna back on the Port-A-Cath and there was good flow. Heparinized saline was injected and 2000 units of IV heparin were injected into the port. A 3-0 silk was used, and then catheter was anchored to the subcutaneous tissue. We then took 3-0 Vicryl and subcutaneous tissue was closed in an interrupted manner. Skin was then closed in a subcuticular running fashion using 4-0 Biosyn. We then closed the puncture site with 4-0 Biosyn with 2 simple stitches. We then placed Steri-Strips there and Steri-Strips on the incision, 4x4s, Tegaderm were placed. Patient tolerated the procedure without complications. Patient was transferred to PACU in stable condition where chest x-ray will be obtained. MAYNOR ENCINAS DO [id number]
== END 2017-10-29 16:47 | disposition home or self-care (01) | DRG 329 ==
LOC: JER 20:13 → JERBED 10-08 00:34 → UNDOADMIN 10-08 01:24 → JERBED 10-08 01:24 → J5S 10-08 14:55
PROVIDERS: ADMIT Internal Medicine; ATTEND Internal Medicine
PROC: 0DBN8ZX Excision of Sigmoid Colon, Via Natural or Artificial Opening Endoscopic, Diagnostic (ICD-10-PCS; principal; 2017-10-08 11:00)
PROC: 0DBH8ZX Excision of Cecum, Via Natural or Artificial Opening Endoscopic, Diagnostic (ICD-10-PCS; 2017-10-11)
PROC: 0DBF8ZX Excision of Right Large Intestine, Via Natural or Artificial Opening Endoscopic, Diagnostic (ICD-10-PCS; 2017-10-11)
PROC: 0W3P8ZZ Control Bleeding in Gastrointestinal Tract, Via Natural or Artificial Opening Endoscopic (ICD-10-PCS; 2017-10-11)
PROC: 0DBN8ZX Excision of Sigmoid Colon, Via Natural or Artificial Opening Endoscopic, Diagnostic (ICD-10-PCS; 2017-10-11)
PROC: 0DBP8ZX Excision of Rectum, Via Natural or Artificial Opening Endoscopic, Diagnostic (ICD-10-PCS; 2017-10-11)
PROC: 0FB10ZX Excision of Right Lobe Liver, Open Approach, Diagnostic (ICD-10-PCS; 2017-10-14)
PROC: 0T788DZ Dilation of Bilateral Ureters with Intraluminal Device, Via Natural or Artificial Opening Endoscopic (ICD-10-PCS; 2017-10-14)
PROC: 0D1L0Z4 Bypass Transverse Colon to Cutaneous, Open Approach (ICD-10-PCS; 2017-10-14 08:00)
PROC: 0DBW0ZX Excision of Peritoneum, Open Approach, Diagnostic (ICD-10-PCS; 2017-10-14 08:00)
PROC: 02HV33Z Insertion of Infusion Device into Superior Vena Cava, Percutaneous Approach (ICD-10-PCS; 2017-10-28)
PROC: B518ZZA Fluoroscopy of Superior Vena Cava, Guidance (ICD-10-PCS; 2017-10-28)
DX: C19 Malignant neoplasm of rectosigmoid junction (principal); A40.8 Other streptococcal sepsis; K61.1 Rectal abscess; N39.0 Urinary tract infection, site not specified; A04.72 Enterocolitis due to Clostridium difficile, not specified as recurrent; C78.7 Secondary malignant neoplasm of liver and intrahepatic bile duct; C78.00 Secondary malignant neoplasm of unspecified lung; C78.6 Secondary malignant neoplasm of retroperitoneum and peritoneum; R19.7 Diarrhea, unspecified; I10 Essential (primary) hypertension; B96.20 Unspecified Escherichia coli [E. coli] as the cause of diseases classified elsewhere; E87.6 Hypokalemia; N32.89 Other specified disorders of bladder; E78.5 Hyperlipidemia, unspecified; Z86.73 Personal history of transient ischemic attack (TIA), and cerebral infarction without residual deficits; R91.8 Other nonspecific abnormal finding of lung field; D50.0 Iron deficiency anemia secondary to blood loss (chronic)
CPT/HCPCS: 36415; 71045-TC; 71046-TC; 71250-TC; 74176-TC; 74178-TC; 76705-TC; 80048; 80053; 81003; 81015; 82378; 82728; 83540; 83550; 83605; 83615; 83690; 83735; 85025; 85044; 85610; 85730; 86140; 86787; 86850; 86900; 86901; 87040; 87045; 87046; 87086; 87177; 87186; 87209; 87324; 87389; 87449; 88300-TC; 88305-TC; 88341-TC; 93005; 93010; 93306-TC; 94760; 99284-25; J1644; J3480

== ENCOUNTER 2017-11-05 07:37 | Day surgery (SDC) | payer BC ==
[2017-11-05] MEDS ORDERED: PALONOSETRON HCL 0.25 MG/5 ML VIAL IVPUSH ONE (08:00)
[2017-11-05] MEDS ORDERED: DEXAMETHASONE SOD PHOSPHATE 10 MG/1 ML VIAL IVPUSH ONE (08:00)
[2017-11-05] MEDS ORDERED: WATER IVPB ONE (08:30)
[2017-11-05] MEDS ORDERED: OXALIPLATIN 100 MG, OXALIPLATIN 45 MG in DEXTROSE 5%-WATER - 500 ML IV ONE (08:30)
[2017-11-05] MEDS ORDERED: DEXTROSE 5% IVPB ONE (08:30)
[2017-11-05] MEDS ORDERED: LEUCOVORIN IVPB ONE (08:30)
[2017-11-05 10:13] VITALS: TEMP 98.3
[2017-11-05] MEDS ORDERED: FLUOROURACIL 4,075 MG in SODIUM CHLORIDE 10.5 ML CP ONE (10:30)
[2017-11-05 10:34] LABS: BASO % 2.4 % (0-2.0); EOS % 3.1 % (0-4.5); HEMATOCRIT 35.5 % (35.4-49); HEMOGLOBIN 11.7 GM/dL (11.7-16.9); LYMPH % 21.5 % (8-40); MCHC 32.9 g/dl (32.0-35.9); MEAN CELL VOLUME 82.2 fl (80-96); MEAN PLT VOLUME 7.3 fl (7.5-11.1); MONO % 8.8 % (3.8-10.2); NEUT % 64.2 % (42.8-82.8); PLATELET COUNT 331 K/MM3 (134-434); RBC 4.32 M/mm3 (4.00-5.60); RDW 17.4 % (11.9-15.9); WHITE BLOOD COUNT 6.3 K/mm3 (4.0-10.0)
[2017-11-05 10:56] LABS: ALBUMIN 3.2 g/dl (3.4-5.0); ANION GAP 10 (8-16); BILIRUBIN,DIRECT 0.2 mg/dL (0.0-0.2); BLOOD UREA NITROGEN 14 mg/dL (7-18); CALCIUM 8.7 mg/dL (8.5-10.1); CHLORIDE 105 mmol/L (98-107); CO2 26 mmol/L (21-32); GLUCOSE,RANDOM 89 mg/dL (74-106); MAGNESIUM 1.8 mg/dL (1.8-2.4); POTASSIUM 3.5 mmol/L (3.5-5.1); SGOT/AST 17 U/L (15-37); SODIUM 141 mmol/L (136-145)
[2017-11-05 10:58] LABS: ALK PHOS 182 U/L (45-117); BILIRUBIN,TOTAL 0.9 mg/dL (0.2-1.0); CREATININE 0.9 mg/dL (0.7-1.3); SGPT/ALT 34 U/L (12-78); TOT PROT 6.8 g/dl (6.4-8.2)
[2017-11-05] MEDS ORDERED: PORTA CATH FLUSH 10 ML IVPUSH ONE (14:10)
[2017-11-05 17:10] VITALS: BP 104/74; PULSE 76
== END 2017-11-05 16:10 | disposition home or self-care (01) ==
LOC: JONCCHEMO 07:37 → J7W 12:14 → JONCCHEMO 16:10
PROVIDERS: ATTEND Internal Medicine Hematology & Oncology
DX: Z51.11 Encounter for antineoplastic chemotherapy (principal); C20 Malignant neoplasm of rectum; C78.7 Secondary malignant neoplasm of liver and intrahepatic bile duct; C78.00 Secondary malignant neoplasm of unspecified lung
CPT/HCPCS: 36415; 80053; 80076; 83735; 85025; 96366; 96367; 96375; 96413; 96415; 96417; G0498; J1100; J2469; J9263

== ENCOUNTER 2017-11-07 07:25 | Day surgery (SDC) | payer BC ==
[2017-11-07 14:53] VITALS: BP 104/73; PULSE 81; TEMP 98
[2017-11-07] MEDS ORDERED: PORTA CATH FLUSH 10 ML IVPUSH ONE (15:04)
== END 2017-11-07 13:00 | disposition home or self-care (01) ==
LOC: JONCCHEMO 07:25 → J7W 12:25 → JONCCHEMO 13:00
PROVIDERS: ATTEND Internal Medicine Hematology & Oncology
PROC: 0JPVXVZ Removal of Infusion Pump from Upper Extremity Subcutaneous Tissue and Fascia, External Approach (ICD-10-PCS; principal; 2017-11-07)
DX: Z53.8 Procedure and treatment not carried out for other reasons (principal)

== ENCOUNTER 2017-11-19 07:28 | Day surgery (SDC) | payer BC ==
[2017-11-19] MEDS ORDERED: BEVACIZUMAB IV ONE (10:00)
[2017-11-19] MEDS ORDERED: PALONOSETRON HCL 0.25 MG/5 ML VIAL IVPUSH ONE (10:00)
[2017-11-19] MEDS ORDERED: SODIUM CHLORIDE IV ONE (10:00)
[2017-11-19] MEDS ORDERED: DEXAMETHASONE SOD PHOSPHATE 10 MG/1 ML VIAL IVPUSH ONE (10:00)
[2017-11-19] MEDS ORDERED: OXALIPLATIN 145 MG in DEXTROSE 5%-WATER - 500 ML IV ONE (10:30)
[2017-11-19] MEDS ORDERED: WATER IVPB ONE (10:30)
[2017-11-19] MEDS ORDERED: LEUCOVORIN IVPB ONE (10:30)
[2017-11-19] MEDS ORDERED: DEXTROSE 5% IVPB ONE (10:30)
[2017-11-19 11:26] LABS: BASO % 1.1 % (0-2.0); EOS % 1.2 % (0-4.5); HEMATOCRIT 31.8 % (35.4-49); HEMOGLOBIN 10.5 GM/dL (11.7-16.9); LYMPH % 23.1 % (8-40); MEAN CELL VOLUME 81.8 fl (80-96); MEAN PLT VOLUME 7.4 fl (7.5-11.1); NEUT % 61.6 % (42.8-82.8); PLATELET COUNT 250 K/MM3 (134-434); RBC 3.89 M/mm3 (4.00-5.60); RDW 16.6 % (11.9-15.9)
[2017-11-19 11:50] LABS: ALK PHOS 148 U/L (45-117); ANION GAP 8 (8-16); BILIRUBIN,DIRECT < 0.2 mg/dL (0.0-0.2); BILIRUBIN,TOTAL 0.5 mg/dL (0.2-1.0); BLOOD UREA NITROGEN 10 mg/dL (7-18); CHLORIDE 103 mmol/L (98-107); CO2 26 mmol/L (21-32); GLUCOSE,RANDOM 76 mg/dL (74-106); MAGNESIUM 1.9 mg/dL (1.8-2.4); SGOT/AST 12 U/L (15-37); SGPT/ALT 19 U/L (12-78); SODIUM 137 mmol/L (136-145); TOT PROT 6.4 g/dl (6.4-8.2)
[2017-11-19] MEDS ORDERED: FLUOROURACIL 4,075 MG in SODIUM CHLORIDE 10.5 ML CP ONE (12:30)
[2017-11-19] MEDS ORDERED: PORTA CATH FLUSH 10 ML IVPUSH ONE ×2 (16:30→18:22)
[2017-11-19 18:22] VITALS: BP 104/67; PULSE 75; TEMP 98.6
== END 2017-11-19 16:40 | disposition home or self-care (01) ==
LOC: JONCCHEMO 07:28 → J7W 11:53 → JONCCHEMO 16:40
PROVIDERS: ATTEND Internal Medicine Hematology & Oncology
DX: Z51.11 Encounter for antineoplastic chemotherapy (principal); C20 Malignant neoplasm of rectum; C78.7 Secondary malignant neoplasm of liver and intrahepatic bile duct; C78.00 Secondary malignant neoplasm of unspecified lung
CPT/HCPCS: 36415; 80053; 80076; 82378; 83735; 85025; 96367; 96375; 96413; 96415; 96417; G0498; J1100; J2469; J9035; J9263

== ENCOUNTER 2017-11-21 07:37 | Day surgery (SDC) | payer BC ==
[2017-11-21 15:12] VITALS: BP 101/71; PULSE 83; TEMP 97.1
== END 2017-11-21 14:45 | disposition home or self-care (01) ==
LOC: JONCCHEMO 07:37 → J7W 12:43 → JONCCHEMO 14:45
PROVIDERS: ATTEND Internal Medicine Hematology & Oncology
PROC: 0JPVXVZ Removal of Infusion Pump from Upper Extremity Subcutaneous Tissue and Fascia, External Approach (ICD-10-PCS; principal; 2017-11-21)
DX: Z53.8 Procedure and treatment not carried out for other reasons (principal)

== ENCOUNTER 2017-12-03 07:25 | Day surgery (SDC) | payer BC ==
[2017-12-03] MEDS ORDERED: DEXAMETHASONE SOD PHOSPHATE 10 MG/1 ML VIAL IVPUSH ONE (10:00)
[2017-12-03] MEDS ORDERED: PALONOSETRON HCL 0.25 MG/5 ML VIAL IVPUSH ONE (10:00)
[2017-12-03 10:28] LABS: BASO % 1.4 % (0-2.0); EOS % 1.6 % (0-4.5); HEMATOCRIT 31.5 % (35.4-49); HEMOGLOBIN 10.7 GM/dL (11.7-16.9); LYMPH % 24.5 % (8-40); MCH 28.2 pg (25.7-33.7); MEAN CELL VOLUME 82.9 fl (80-96); MEAN PLT VOLUME 7.2 fl (7.5-11.1); MONO % 11.1 % (3.8-10.2); NEUT % 61.4 % (42.8-82.8); PLATELET COUNT 245 K/MM3 (134-434); RBC 3.81 M/mm3 (4.00-5.60); RDW 18.3 % (11.9-15.9); WHITE BLOOD COUNT 5.6 K/mm3 (4.0-10.0)
[2017-12-03 10:52] LABS: CHLORIDE 104 mmol/L (98-107); POTASSIUM 3.9 mmol/L (3.5-5.1); SODIUM 139 mmol/L (136-145)
[2017-12-03] MEDS ORDERED: LEUCOVORIN INJECTION - 676 MG in DEXTROSE 5%-WATER - 250 ML IVPB ONE (11:00)
[2017-12-03] MEDS ORDERED: OXALIPLATIN 145 MG in DEXTROSE 5%-WATER - 500 ML IV ONE (11:00)
[2017-12-03 11:11] LABS: ALBUMIN 3.3 g/dl (3.4-5.0); ALK PHOS 109 U/L (45-117); ANION GAP 9 (8-16); BILIRUBIN,TOTAL 0.9 mg/dL (0.2-1.0); BLOOD UREA NITROGEN 17 mg/dL (7-18); CALCIUM 8.3 mg/dL (8.5-10.1); CO2 26 mmol/L (21-32); CREATININE 0.8 mg/dL (0.7-1.3); GLUCOSE,RANDOM 77 mg/dL (74-106); MAGNESIUM 2.1 mg/dL (1.8-2.4); SGOT/AST 14 U/L (15-37); SGPT/ALT 24 U/L (12-78); TOT PROT 6.5 g/dl (6.4-8.2)
[2017-12-03] MEDS: SODIUM CHLORIDE IV ONE ×2 (11:16→13:00)
[2017-12-03] MEDS: BEVACIZUMAB IV ONE ×2 (11:16→13:00)
[2017-12-03] MEDS ORDERED: LOSARTAN 50MG/HCTZ 12.5MG 1 TAB (FP) PO ONE (12:15)
[2017-12-03] MEDS ORDERED: FLUOROURACIL 4,050 MG in SODIUM CHLORIDE 11 ML CP ONE (13:00)
[2017-12-03 17:32] VITALS: BP 123/91; PULSE 68; TEMP 98.6
[2017-12-03] MEDS ORDERED: PORTA CATH FLUSH 10 ML IVPUSH ONE (17:32)
== END 2017-12-03 22:51 | disposition home or self-care (01) ==
LOC: JONCCHEMO 07:25 → J7W 10:59 → JONCCHEMO 22:51
PROVIDERS: ATTEND Internal Medicine Hematology & Oncology
DX: Z51.11 Encounter for antineoplastic chemotherapy (principal); C20 Malignant neoplasm of rectum; C78.7 Secondary malignant neoplasm of liver and intrahepatic bile duct; C78.00 Secondary malignant neoplasm of unspecified lung
CPT/HCPCS: 36415; 80053; 82378; 83735; 85025; 96367; 96375; 96413; 96415; 96417; G0498; J1100; J2469; J9035; J9263

== ENCOUNTER 2017-12-05 07:04 | Day surgery (SDC) | payer BC ==
[2017-12-05 14:07] VITALS: BP 106/76; PULSE 95; TEMP 97.8
== END 2017-12-05 13:30 | disposition home or self-care (01) ==
LOC: JONCNONCHE 07:04 → J7W 13:25 → JONCNONCHE 13:30
PROVIDERS: ATTEND Internal Medicine Hematology & Oncology

== ENCOUNTER 2017-12-17 07:27 | Day surgery (SDC) | payer BC ==
[2017-12-17] MEDS ORDERED: PALONOSETRON HCL 0.25 MG/5 ML VIAL IVPUSH ONE (08:00)
[2017-12-17] MEDS ORDERED: DEXAMETHASONE SOD PHOSPHATE 10 MG/1 ML VIAL IVPUSH ONE (08:00)
[2017-12-17] MEDS ORDERED: BEVACIZUMAB IV ONE (08:30)
[2017-12-17] MEDS ORDERED: SODIUM CHLORIDE IV ONE (08:30)
[2017-12-17] MEDS ORDERED: LEUCOVORIN INJECTION - 676 MG in DEXTROSE 5%-WATER - 250 ML IVPB ONE (09:00)
[2017-12-17] MEDS ORDERED: OXALIPLATIN 145 MG in DEXTROSE 5%-WATER - 500 ML IV ONE (09:00)
[2017-12-17 10:48] LABS: BASO % 0.9 % (0-2.0); HEMATOCRIT 33.3 % (35.4-49); HEMOGLOBIN 11.2 GM/dL (11.7-16.9); LYMPH % 18.6 % (8-40); MCH 28.6 pg (25.7-33.7); MCHC 33.8 g/dl (32.0-35.9); MEAN CELL VOLUME 84.7 fl (80-96); MEAN PLT VOLUME 7.3 fl (7.5-11.1); MONO % 11.1 % (3.8-10.2); NEUT % 68.4 % (42.8-82.8); PLATELET COUNT 208 K/MM3 (134-434); RBC 3.93 M/mm3 (4.00-5.60); WHITE BLOOD COUNT 5.8 K/mm3 (4.0-10.0)
[2017-12-17] MEDS ORDERED: FLUOROURACIL 4,050 MG in SODIUM CHLORIDE 11 ML CP ONE (11:00)
[2017-12-17 11:01] LABS: ALBUMIN 3.6 g/dl (3.4-5.0); BILIRUBIN,DIRECT 0.2 mg/dL (0.0-0.2)
[2017-12-17 11:02] LABS: ALBUMIN 3.6 g/dl (3.4-5.0); ANION GAP 7 (8-16); BLOOD UREA NITROGEN 11 mg/dL (7-18); CALCIUM 8.3 mg/dL (8.5-10.1); CHLORIDE 106 mmol/L (98-107); CO2 27 mmol/L (21-32); CREATININE 0.8 mg/dL (0.7-1.3); GLUCOSE,RANDOM 85 mg/dL (74-106); POTASSIUM 3.5 mmol/L (3.5-5.1); SGOT/AST 12 U/L (15-37); SGPT/ALT 21 U/L (12-78); SODIUM 140 mmol/L (136-145)
[2017-12-17 11:03] LABS: BILIRUBIN,TOTAL 0.8 mg/dL (0.2-1.0); TOT PROT 6.8 g/dl (6.4-8.2)
[2017-12-17 11:04] LABS: ALK PHOS 115 U/L (45-117); BILIRUBIN,TOTAL 0.7 mg/dL (0.2-1.0); TOT PROT 6.7 g/dl (6.4-8.2)
[2017-12-17 17:56] VITALS: BP 120/89; PULSE 75
[2017-12-17 18:00] VITALS: TEMP 98.6
== END 2017-12-17 15:15 | disposition home or self-care (01) ==
LOC: JONCCHEMO 07:27 → J7W 11:11 → JONCCHEMO 15:15
PROVIDERS: ATTEND Internal Medicine Hematology & Oncology
DX: Z51.11 Encounter for antineoplastic chemotherapy (principal); C20 Malignant neoplasm of rectum; C78.7 Secondary malignant neoplasm of liver and intrahepatic bile duct; C78.00 Secondary malignant neoplasm of unspecified lung
CPT/HCPCS: 36415; 80053; 80076; 82378; 83735; 85025; 96366; 96367; 96375; 96413; 96415; 96417; G0498; J1100; J2469; J9035; J9263

== ENCOUNTER 2018-01-01 07:37 | Day surgery (SDC) | payer BC ==
[2018-01-01] MEDS ORDERED: PALONOSETRON HCL 0.25 MG/5 ML VIAL IVPUSH ONE (08:00)
[2018-01-01] MEDS ORDERED: DEXAMETHASONE SOD PHOSPHATE 10 MG/1 ML VIAL IVPUSH ONE (08:00)
[2018-01-01] MEDS ORDERED: BEVACIZUMAB IV ONE (08:30)
[2018-01-01] MEDS ORDERED: SODIUM CHLORIDE IV ONE (08:30)
[2018-01-01] MEDS ORDERED: OXALIPLATIN 100 MG, OXALIPLATIN 45 MG in DEXTROSE 5%-WATER - 500 ML IV ONE (09:00)
[2018-01-01] MEDS ORDERED: LEUCOVORIN INJECTION - 676 MG in DEXTROSE 5%-WATER - 250 ML IVPB ONE (09:00)
[2018-01-01 09:19] LABS: EOS % 1.4 % (0-4.5); HEMATOCRIT 35.2 % (35.4-49); HEMOGLOBIN 11.9 GM/dL (11.7-16.9); MCHC 33.9 g/dl (32.0-35.9); MEAN CELL VOLUME 85.6 fl (80-96); MEAN PLT VOLUME 7.2 fl (7.5-11.1); MONO % 10.7 % (3.8-10.2); NEUT % 67.9 % (42.8-82.8); PLATELET COUNT 205 K/MM3 (134-434); RBC 4.11 M/mm3 (4.00-5.60); RDW 18.7 % (11.9-15.9)
[2018-01-01 09:49] LABS: ALBUMIN 3.6 g/dl (3.4-5.0); ANION GAP 6 (8-16); BILIRUBIN,TOTAL 0.9 mg/dL (0.2-1.0); BLOOD UREA NITROGEN 17 mg/dL (7-18); CALCIUM 8.6 mg/dL (8.5-10.1); CHLORIDE 105 mmol/L (98-107); CO2 28 mmol/L (21-32); CREATININE 1.2 mg/dL (0.7-1.3); GLUCOSE,RANDOM 98 mg/dL (74-106); POTASSIUM 4.2 mmol/L (3.5-5.1); SGOT/AST 19 U/L (15-37); SGPT/ALT 24 U/L (12-78); SODIUM 139 mmol/L (136-145); TOT PROT 6.7 g/dl (6.4-8.2)
[2018-01-01 09:50] LABS: ALK PHOS 93 U/L (45-117)
[2018-01-01 09:54] LABS: BILIRUBIN,DIRECT 0.2 mg/dL (0.0-0.2)
[2018-01-01] MEDS ORDERED: FLUOROURACIL 4,050 MG in SODIUM CHLORIDE 11 ML IV ONE (11:00)
[2018-01-01 14:00] VITALS: TEMP 98
[2018-01-01 14:04] LABS: URINE APPEARANCE CLEAR; URINE BILIRUBIN NEGATIVE (<2.0 mg/dL); URINE BLOOD NEGATIVE (NEGATIVE); URINE COLOR STRAW; URINE GLUCOSE (UA) NEGATIVE (NEGATIVE); URINE KETONE NEGATIVE (NEGATIVE); URINE LEUK ESTERASE NEGATIVE (NEGATIVE); URINE NITRITE NEGATIVE (NEGATIVE); URINE UROBILINOGEN NEGATIVE mg/dL (0.2-1.0)
[2018-01-01 14:05] LABS: URINE PROTEIN 1+ (NEGATIVE)
[2018-01-01 14:26] VITALS: BP 116/80; PULSE 75
== END 2018-01-01 14:32 | disposition home or self-care (01) ==
LOC: JONCCHEMO 07:37 → J7W 09:41 → JONCCHEMO 14:32
PROVIDERS: ATTEND Internal Medicine Hematology & Oncology
DX: Z51.11 Encounter for antineoplastic chemotherapy (principal); C20 Malignant neoplasm of rectum; C78.7 Secondary malignant neoplasm of liver and intrahepatic bile duct; C78.00 Secondary malignant neoplasm of unspecified lung
CPT/HCPCS: 36415; 80053; 80076; 81003; 81015; 83735; 85025; 96413; 96415; G0498; J1100; J2469; J9035; J9263

== ENCOUNTER 2018-01-14 07:18 | Day surgery (SDC) | payer BC ==
[2018-01-14] MEDS ORDERED: PALONOSETRON HCL 0.25 MG/5 ML VIAL IVPUSH ONE (10:00)
[2018-01-14] MEDS ORDERED: DEXAMETHASONE SOD PHOSPHATE 10 MG/1 ML VIAL IVPUSH ONE (10:00)
[2018-01-14] MEDS ORDERED: SODIUM CHLORIDE IV ONE (10:30)
[2018-01-14] MEDS ORDERED: BEVACIZUMAB IV ONE (10:30)
[2018-01-14] MEDS ORDERED: LEUCOVORIN INJECTION - 676 MG in DEXTROSE 5%-WATER - 250 ML IVPB ONE (11:00)
[2018-01-14] MEDS ORDERED: OXALIPLATIN 145 MG in DEXTROSE 5%-WATER - 500 ML IV ONE (11:00)
[2018-01-14 11:05] LABS: BASO % 0.9 % (0-2.0); EOS % 2.2 % (0-4.5); HEMATOCRIT 36.9 % (35.4-49); HEMOGLOBIN 12.4 GM/dL (11.7-16.9); LYMPH % 21.7 % (8-40); MCH 29.1 pg (25.7-33.7); MCHC 33.6 g/dl (32.0-35.9); MEAN CELL VOLUME 86.7 fl (80-96); MEAN PLT VOLUME 7.4 fl (7.5-11.1); MONO % 11.1 % (3.8-10.2); NEUT % 64.1 % (42.8-82.8); PLATELET COUNT 223 K/MM3 (134-434); RBC 4.25 M/mm3 (4.00-5.60); RDW 18.1 % (11.9-15.9); WHITE BLOOD COUNT 6.4 K/mm3 (4.0-10.0)
[2018-01-14 11:28] LABS: ALBUMIN 3.9 g/dl (3.4-5.0); ANION GAP 10 (8-16); BLOOD UREA NITROGEN 14 mg/dL (7-18); CALCIUM 9.1 mg/dL (8.5-10.1); CHLORIDE 103 mmol/L (98-107); CO2 28 mmol/L (21-32); GLUCOSE,RANDOM 62 mg/dL (74-106); POTASSIUM 4.2 mmol/L (3.5-5.1); SGOT/AST 28 U/L (15-37); SGPT/ALT 36 U/L (12-78); SODIUM 141 mmol/L (136-145)
[2018-01-14 11:30] LABS: ALK PHOS 90 U/L (45-117); CREATININE 1.3 mg/dL (0.7-1.3); TOT PROT 7.3 g/dl (6.4-8.2)
[2018-01-14 11:38] LABS: BILIRUBIN,DIRECT 0.3 mg/dL (0.0-0.2); MAGNESIUM 2.3 mg/dL (1.8-2.4)
[2018-01-14 11:44] VITALS: TEMP 97.6
[2018-01-14] MEDS ORDERED: PORTA CATH FLUSH 10 ML IVPUSH ONE ×2 (11:44→12:31)
[2018-01-14] MEDS ORDERED: FLUOROURACIL 4,050 MG in SODIUM CHLORIDE 11 ML CP ONE (13:00)
[2018-01-14 14:14] LABS: URINE APPEARANCE CLEAR; URINE BILIRUBIN NEGATIVE (<2.0 mg/dL); URINE BLOOD NEGATIVE (NEGATIVE); URINE COLOR LTYELLOW; URINE GLUCOSE (UA) NEGATIVE (NEGATIVE); URINE KETONE NEGATIVE (NEGATIVE); URINE LEUK ESTERASE NEGATIVE (NEGATIVE); URINE NITRITE NEGATIVE (NEGATIVE); URINE UROBILINOGEN NEGATIVE mg/dL (0.2-1.0)
[2018-01-14 14:19] LABS: URINE PROTEIN 1+ (NEGATIVE)
[2018-01-14 15:38] VITALS: BP 124/87; PULSE 73
== END 2018-01-14 15:45 | disposition home or self-care (01) ==
LOC: JONCCHEMO 07:18 → J7W 11:32 → JONCCHEMO 15:45
PROVIDERS: ATTEND Internal Medicine Hematology & Oncology
DX: Z51.11 Encounter for antineoplastic chemotherapy (principal); C20 Malignant neoplasm of rectum; C78.7 Secondary malignant neoplasm of liver and intrahepatic bile duct; C78.00 Secondary malignant neoplasm of unspecified lung
CPT/HCPCS: 36415; 80053; 80076; 81003; 81015; 82378; 83735; 85025; 96367; 96375; 96413; 96415; 96417; G0498; J1100; J2469; J9035; J9263

== ENCOUNTER 2018-01-16 07:30 | Day surgery (SDC) | payer BC ==
[2018-01-16 16:01] VITALS: BP 112/77; PULSE 68; TEMP 98.1
== END 2018-01-16 13:45 | disposition home or self-care (01) ==
LOC: JONCNONCHE 07:30 → J7W 13:25 → JONCNONCHE 13:45
PROVIDERS: ATTEND Internal Medicine Hematology & Oncology
PROC: 0JPVXVZ Removal of Infusion Pump from Upper Extremity Subcutaneous Tissue and Fascia, External Approach (ICD-10-PCS; principal; 2018-01-16)
DX: Z53.8 Procedure and treatment not carried out for other reasons (principal)

== ENCOUNTER 2018-01-28 07:21 | Day surgery (SDC) | payer BC ==
[2018-01-28] MEDS ORDERED: PALONOSETRON HCL 0.25 MG/5 ML VIAL IVPUSH ONE (10:00)
[2018-01-28] MEDS ORDERED: DEXAMETHASONE INJECTION 10 MG in SODIUM CHLORIDE 50 ML IVPB ONE (10:00)
[2018-01-28] MEDS ORDERED: SODIUM CHLORIDE IV ONE (10:30)
[2018-01-28] MEDS ORDERED: BEVACIZUMAB IV ONE (10:30)
[2018-01-28 10:31] VITALS: TEMP 97.8
[2018-01-28 10:47] LABS: BASO % 0.6 % (0-2.0); EOS % 1.5 % (0-4.5); HEMATOCRIT 35.7 % (35.4-49); HEMOGLOBIN 12.3 GM/dL (11.7-16.9); LYMPH % 22.1 % (8-40); MCH 29.7 pg (25.7-33.7); MCHC 34.4 g/dl (32.0-35.9); MEAN CELL VOLUME 86.3 fl (80-96); MEAN PLT VOLUME 7.3 fl (7.5-11.1); MONO % 10.3 % (3.8-10.2); NEUT % 65.5 % (42.8-82.8); PLATELET COUNT 178 K/MM3 (134-434); RBC 4.14 M/mm3 (4.00-5.60); RDW 17.3 % (11.9-15.9); WHITE BLOOD COUNT 6.6 K/mm3 (4.0-10.0)
[2018-01-28] MEDS ORDERED: DEXTROSE 5% IVPB ONE (11:00)
[2018-01-28] MEDS ORDERED: WATER IVPB ONE (11:00)
[2018-01-28] MEDS ORDERED: OXALIPLATIN IV ONE (11:00)
[2018-01-28] MEDS ORDERED: WATER IV ONE (11:00)
[2018-01-28] MEDS ORDERED: LEUCOVORIN IVPB ONE (11:00)
[2018-01-28] MEDS ORDERED: DEXTROSE 5% IV ONE (11:00)
[2018-01-28 11:24] LABS: ALBUMIN 3.8 g/dl (3.4-5.0); ANION GAP 4 (8-16); BLOOD UREA NITROGEN 13 mg/dL (7-18); CALCIUM 8.4 mg/dL (8.5-10.1); CHLORIDE 104 mmol/L (98-107); CO2 31 mmol/L (21-32); CREATININE 1.1 mg/dL (0.7-1.3); GLUCOSE,RANDOM 83 mg/dL (74-106); POTASSIUM 3.5 mmol/L (3.5-5.1); SGOT/AST 21 U/L (15-37); SGPT/ALT 23 U/L (12-78); SODIUM 139 mmol/L (136-145)
[2018-01-28 11:25] LABS: ALK PHOS 90 U/L (45-117)
[2018-01-28] MEDS ORDERED: LOSARTAN 50MG/HCTZ 12.5MG 1 TAB (FP) PO ONE (11:37)
[2018-01-28 12:09] LABS: ALBUMIN 3.9 g/dl (3.4-5.0); BILIRUBIN,DIRECT 0.2 mg/dL (0.0-0.2); MAGNESIUM 2.1 mg/dL (1.8-2.4)
[2018-01-28 12:11] LABS: TOT PROT 7.2 g/dl (6.4-8.2)
[2018-01-28 12:59] LABS: URINE APPEARANCE CLEAR; URINE BILIRUBIN NEGATIVE (<2.0 mg/dL); URINE COLOR STRAW; URINE GLUCOSE (UA) NEGATIVE (NEGATIVE); URINE KETONE NEGATIVE (NEGATIVE); URINE LEUK ESTERASE NEGATIVE (NEGATIVE); URINE NITRITE NEGATIVE (NEGATIVE); URINE PROTEIN 1+ (NEGATIVE); URINE UROBILINOGEN NEGATIVE mg/dL (0.2-1.0)
[2018-01-28] MEDS ORDERED: FLUOROURACIL 4,350 MG in SODIUM CHLORIDE 5 ML CP ONE (13:00)
[2018-01-28 16:13] VITALS: BP 142/104; PULSE 92
[2018-01-28] MEDS ORDERED: PORTA CATH FLUSH 10 ML IVPUSH ONE (16:15)
[2018-01-28] MEDS ORDERED: metoPROLOL SUCCINATE 25 MG TAB.SR.24H (FP) PO ONE (16:45)
== END 2018-01-28 20:37 | disposition home or self-care (01) ==
LOC: JONCCHEMO 07:21 → J7W 11:10 → JONCCHEMO 20:37
PROVIDERS: ATTEND Internal Medicine Hematology & Oncology
PROC: 3E04305 Introduction of Other Antineoplastic into Central Vein, Percutaneous Approach (ICD-10-PCS; principal; 2018-01-28)
PROC: 3E04305 Introduction of Other Antineoplastic into Central Vein, Percutaneous Approach (ICD-10-PCS; 2018-01-28)
PROC: 3E033GC Introduction of Other Therapeutic Substance into Peripheral Vein, Percutaneous Approach (ICD-10-PCS; 2018-01-28)
DX: Z51.11 Encounter for antineoplastic chemotherapy (principal); C18.9 Malignant neoplasm of colon, unspecified; C78.7 Secondary malignant neoplasm of liver and intrahepatic bile duct; I10 Essential (primary) hypertension
CPT/HCPCS: 36415; 80053; 80076; 81003; 81015; 83735; 85025; 96366; 96367; 96375; 96413; 96415; 96417; G0498; J1100; J2469; J9263

== ENCOUNTER 2018-01-30 07:42 | Day surgery (SDC) | payer BC ==
[2018-01-30 18:54] VITALS: BP 130/99; PULSE 68; TEMP 97.7
[2018-01-30] MEDS ORDERED: PORTA CATH FLUSH 10 ML IVPUSH ONE (18:54)
== END 2018-01-30 15:00 | disposition home or self-care (01) ==
LOC: JONCNONCHE 07:42 → J7W 14:08 → JONCNONCHE 15:00
PROVIDERS: ATTEND Internal Medicine Hematology & Oncology
PROC: 0JPVXVZ Removal of Infusion Pump from Upper Extremity Subcutaneous Tissue and Fascia, External Approach (ICD-10-PCS; principal; 2018-01-30)
DX: Z53.8 Procedure and treatment not carried out for other reasons (principal)

== ENCOUNTER 2018-02-11 07:32 | Day surgery (SDC) | payer BC ==
[2018-02-11] MEDS ORDERED: PALONOSETRON HCL 0.25 MG/5 ML VIAL IVPUSH ONE (08:00)
[2018-02-11] MEDS ORDERED: DEXAMETHASONE INJECTION 10 MG in SODIUM CHLORIDE 50 ML IVPB ONE (08:00)
[2018-02-11] MEDS ORDERED: SODIUM CHLORIDE IV ONE (08:30)
[2018-02-11] MEDS ORDERED: BEVACIZUMAB IV ONE (08:30)
[2018-02-11] MEDS ORDERED: LEUCOVORIN IVPB ONE (09:00)
[2018-02-11] MEDS ORDERED: DEXTROSE 5% IVPB ONE (09:00)
[2018-02-11] MEDS ORDERED: DEXTROSE 5% IV ONE (09:00)
[2018-02-11] MEDS ORDERED: WATER IVPB ONE (09:00)
[2018-02-11] MEDS ORDERED: OXALIPLATIN IV ONE (09:00)
[2018-02-11] MEDS ORDERED: WATER IV ONE (09:00)
[2018-02-11 09:33] LABS: BASO % 0.7 % (0-2.0); HEMATOCRIT 36.1 % (35.4-49); LYMPH % 19.5 % (8-40); MCHC 33.1 g/dl (32.0-35.9); MEAN CELL VOLUME 87.5 fl (80-96); MEAN PLT VOLUME 7.4 fl (7.5-11.1); NEUT % 68.8 % (42.8-82.8); PLATELET COUNT 179 K/MM3 (134-434); RBC 4.12 M/mm3 (4.00-5.60); RDW 17.1 % (11.9-15.9); WHITE BLOOD COUNT 6.1 K/mm3 (4.0-10.0)
[2018-02-11 10:04] LABS: ALBUMIN 3.5 g/dl (3.4-5.0); ALK PHOS 97 U/L (45-117); ANION GAP 8 (8-16); BILIRUBIN,DIRECT 0.2 mg/dL (0.0-0.2); BILIRUBIN,TOTAL 0.6 mg/dL (0.2-1.0); BLOOD UREA NITROGEN 16 mg/dL (7-18); CALCIUM 8.3 mg/dL (8.5-10.1); CHLORIDE 107 mmol/L (98-107); CO2 28 mmol/L (21-32); CREATININE 1.5 mg/dL (0.7-1.3); GLUCOSE,RANDOM 103 mg/dL (74-106); MAGNESIUM 2.1 mg/dL (1.8-2.4); SGOT/AST 14 U/L (15-37); SGPT/ALT 23 U/L (12-78); SODIUM 143 mmol/L (136-145); TOT PROT 6.9 g/dl (6.4-8.2)
[2018-02-11 10:13] VITALS: PULSE 90; TEMP 98.3
[2018-02-11 10:15] VITALS: BP 121/90
[2018-02-11 10:55] LABS: URINE APPEARANCE CLEAR; URINE BILIRUBIN NEGATIVE (<2.0 mg/dL); URINE COLOR LTYELLOW; URINE GLUCOSE (UA) NEGATIVE (NEGATIVE); URINE KETONE NEGATIVE (NEGATIVE); URINE LEUK ESTERASE NEGATIVE (NEGATIVE); URINE NITRITE NEGATIVE (NEGATIVE); URINE UROBILINOGEN NEGATIVE mg/dL (0.2-1.0)
[2018-02-11 10:59] LABS: URINE PROTEIN 1+ (NEGATIVE)
[2018-02-11] MEDS ORDERED: SODIUM CHLORIDE 1,000 ML IV STA (10:59)
[2018-02-11] MEDS ORDERED: FLUOROURACIL 4,350 MG in SODIUM CHLORIDE 5 ML CP ONE (11:00)
[2018-02-11 12:12] LABS: URINE MUCUS RARE
== END 2018-02-11 14:48 | disposition home or self-care (01) ==
LOC: JONCCHEMO 07:32 → J7W 09:53 → JONCCHEMO 14:48
PROVIDERS: ATTEND Internal Medicine Hematology & Oncology
DX: Z51.11 Encounter for antineoplastic chemotherapy (principal); C18.9 Malignant neoplasm of colon, unspecified; C78.7 Secondary malignant neoplasm of liver and intrahepatic bile duct; I10 Essential (primary) hypertension
CPT/HCPCS: 36415; 80053; 80076; 81003; 81015; 82378; 83735; 85025; 96361; 96366; 96367; 96375; 96413; 96415; 96417; G0498; J1100; J2469; J7030; J9035; J9263

== ENCOUNTER 2018-02-13 07:28 | Day surgery (SDC) | payer BC ==
[2018-02-13] MEDS ORDERED: SODIUM CHLORIDE 1,000 ML IV STA (13:46)
[2018-02-13 14:54] LABS: ANION GAP 9 (8-16); BLOOD UREA NITROGEN 18 mg/dL (7-18); CHLORIDE 104 mmol/L (98-107); CO2 29 mmol/L (21-32); CREATININE 1.4 mg/dL (0.7-1.3); GLUCOSE,RANDOM 91 mg/dL (74-106); POTASSIUM 3.6 mmol/L (3.5-5.1); SODIUM 142 mmol/L (136-145)
[2018-02-13 17:17] VITALS: TEMP 98.2
[2018-02-13 17:19] VITALS: BP 138/86; PULSE 84
[2018-02-13] MEDS ORDERED: PORTA CATH FLUSH 10 ML IVPUSH ONE (17:30)
== END 2018-02-13 15:00 | disposition home or self-care (01) ==
LOC: JONCNONCHE 07:28 → J7W 13:26 → JONCNONCHE 15:00
PROVIDERS: ATTEND Internal Medicine Hematology & Oncology
PROC: 3E0437Z Introduction of Electrolytic and Water Balance Substance into Central Vein, Percutaneous Approach (ICD-10-PCS; principal; 2018-02-13)
DX: C18.9 Malignant neoplasm of colon, unspecified (principal); Z53.8 Procedure and treatment not carried out for other reasons; C78.7 Secondary malignant neoplasm of liver and intrahepatic bile duct
CPT/HCPCS: 36415; 80048; 96360; 96361; 96374; J7030

== ENCOUNTER 2018-02-21 07:32 | Day surgery (SDC) | payer BC ==
[2018-02-21] MEDS ORDERED: SODIUM CHLORIDE 2,000 ML IV ONE (10:00)
[2018-02-21 16:52] VITALS: BP 135/76; PULSE 73; TEMP 98.2
[2018-02-21] MEDS ORDERED: PORTA CATH FLUSH 10 ML IVPUSH ONE (16:52)
== END 2018-02-21 14:15 | disposition home or self-care (01) ==
LOC: JONCNONCHE 07:32 → J7W 09:33 → JONCNONCHE 14:15
PROVIDERS: ATTEND Internal Medicine Hematology & Oncology
PROC: 3E0437Z Introduction of Electrolytic and Water Balance Substance into Central Vein, Percutaneous Approach (ICD-10-PCS; principal; 2018-02-21)
DX: C18.9 Malignant neoplasm of colon, unspecified (principal); C78.7 Secondary malignant neoplasm of liver and intrahepatic bile duct
CPT/HCPCS: 96360; 96361; J7030

== ENCOUNTER 2018-02-25 07:52 | Day surgery (SDC) | payer BC ==
[2018-02-25] MEDS ORDERED: DEXAMETHASONE INJECTION 10 MG in SODIUM CHLORIDE 100 ML IVPB ONE (08:00)
[2018-02-25] MEDS ORDERED: PALONOSETRON HCL 0.25 MG/5 ML VIAL IVPUSH ONE (08:00)
[2018-02-25] MEDS ORDERED: SODIUM CHLORIDE IV ONE (08:30)
[2018-02-25] MEDS ORDERED: BEVACIZUMAB IV ONE (08:30)
[2018-02-25] MEDS ORDERED: DEXTROSE 5% IV ONE (09:00)
[2018-02-25] MEDS ORDERED: OXALIPLATIN IV ONE (09:00)
[2018-02-25] MEDS ORDERED: WATER IV ONE (09:00)
[2018-02-25] MEDS ORDERED: DEXTROSE 5% IVPB ONE (09:00)
[2018-02-25] MEDS ORDERED: LEUCOVORIN IVPB ONE (09:00)
[2018-02-25] MEDS ORDERED: WATER IVPB ONE (09:00)
[2018-02-25] MEDS ORDERED: FLUOROURACIL 4,350 MG in SODIUM CHLORIDE 5 ML CP ONE (11:00)
[2018-02-25 11:39] LABS: BASO % 0.6 % (0-2.0); EOS % 0.9 % (0-4.5); HEMATOCRIT 37.4 % (35.4-49); HEMOGLOBIN 12.7 GM/dL (11.7-16.9); LYMPH % 20.7 % (8-40); MCH 29.2 pg (25.7-33.7); MEAN PLT VOLUME 7.4 fl (7.5-11.1); MONO % 9.8 % (3.8-10.2); PLATELET COUNT 147 K/MM3 (134-434); RBC 4.35 M/mm3 (4.00-5.60); RDW 16.5 % (11.9-15.9); WHITE BLOOD COUNT 6.2 K/mm3 (4.0-10.0)
[2018-02-25 12:15] LABS: ALBUMIN 3.8 g/dl (3.4-5.0); ALK PHOS 96 U/L (45-117); ANION GAP 7 (8-16); BILIRUBIN,DIRECT 0.2 mg/dL (0.0-0.2); BILIRUBIN,TOTAL 0.8 mg/dL (0.2-1.0); BLOOD UREA NITROGEN 24 mg/dL (7-18); CALCIUM 8.7 mg/dL (8.5-10.1); CHLORIDE 104 mmol/L (98-107); CO2 27 mmol/L (21-32); CREATININE 1.4 mg/dL (0.7-1.3); GLUCOSE,RANDOM 68 mg/dL (74-106); MAGNESIUM 2.2 mg/dL (1.8-2.4); SGOT/AST 17 U/L (15-37); SGPT/ALT 22 U/L (12-78); SODIUM 138 mmol/L (136-145); TOT PROT 7.3 g/dl (6.4-8.2)
[2018-02-25 17:47] LABS: URINE APPEARANCE CLEAR; URINE BILIRUBIN NEGATIVE (<2.0 mg/dL); URINE COLOR STRAW; URINE GLUCOSE (UA) NEGATIVE (NEGATIVE); URINE KETONE NEGATIVE (NEGATIVE); URINE LEUK ESTERASE NEGATIVE (NEGATIVE); URINE NITRITE NEGATIVE (NEGATIVE); URINE PROTEIN NEGATIVE (NEGATIVE); URINE UROBILINOGEN NEGATIVE mg/dL (0.2-1.0)
[2018-02-25 18:40] VITALS: TEMP 98.1
[2018-02-25] MEDS ORDERED: PORTA CATH FLUSH 10 ML IVPUSH ONE (18:40)
[2018-02-25 18:43] VITALS: BP 123/93; PULSE 69
== END 2018-02-25 16:40 | disposition home or self-care (01) ==
LOC: JONCCHEMO 07:52 → J7W 12:09 → JONCCHEMO 16:40
PROVIDERS: ATTEND Internal Medicine Hematology & Oncology
DX: Z51.11 Encounter for antineoplastic chemotherapy (principal); C18.9 Malignant neoplasm of colon, unspecified; C78.7 Secondary malignant neoplasm of liver and intrahepatic bile duct
CPT/HCPCS: 36415; 80053; 80076; 81003; 82378; 83735; 85025; 96366; 96367; 96375; 96413; 96415; 96417; G0498; J1100; J2469; J9035; J9263

== ENCOUNTER 2018-02-27 07:20 | Day surgery (SDC) | payer BC ==
[2018-02-27 12:08] VITALS: BP 115/75; PULSE 86; TEMP 97.8
== END 2018-02-27 14:00 | disposition home or self-care (01) ==
LOC: JONCCHEMO 07:20 → J7W 11:47 → JONCCHEMO 14:00
PROVIDERS: ATTEND Internal Medicine Hematology & Oncology
PROC: 0JPVXVZ Removal of Infusion Pump from Upper Extremity Subcutaneous Tissue and Fascia, External Approach (ICD-10-PCS; principal; 2018-02-27)
DX: Z53.8 Procedure and treatment not carried out for other reasons (principal)

== ENCOUNTER 2018-03-11 07:34 | Day surgery (SDC) | payer BC ==
[2018-03-11] MEDS ORDERED: PALONOSETRON HCL 0.25 MG/5 ML VIAL IVPUSH ONE (10:00)
[2018-03-11] MEDS ORDERED: DEXAMETHASONE INJECTION 10 MG in SODIUM CHLORIDE 50 ML IVPB ONE (10:00)
[2018-03-11 10:07] LABS: BASO % 0.6 % (0-2.0); EOS % 1.2 % (0-4.5); HEMOGLOBIN 12.3 GM/dL (11.7-16.9); LYMPH % 22.6 % (8-40); MCH 29.2 pg (25.7-33.7); MCHC 34.1 g/dl (32.0-35.9); MEAN CELL VOLUME 85.7 fl (80-96); MEAN PLT VOLUME 7.4 fl (7.5-11.1); MONO % 13.4 % (3.8-10.2); NEUT % 62.2 % (42.8-82.8); PLATELET COUNT 152 K/MM3 (134-434); RDW 16.3 % (11.9-15.9); WHITE BLOOD COUNT 5.3 K/mm3 (4.0-10.0)
[2018-03-11] MEDS ORDERED: SODIUM CHLORIDE IV ONE (10:30)
[2018-03-11] MEDS ORDERED: BEVACIZUMAB IV ONE (10:30)
[2018-03-11] MEDS ORDERED: OXALIPLATIN IV ONE (11:00)
[2018-03-11] MEDS ORDERED: LEUCOVORIN IVPB ONE (11:00)
[2018-03-11] MEDS ORDERED: DEXTROSE 5% IVPB ONE (11:00)
[2018-03-11] MEDS ORDERED: WATER IV ONE (11:00)
[2018-03-11] MEDS ORDERED: WATER IVPB ONE (11:00)
[2018-03-11] MEDS ORDERED: DEXTROSE 5% IV ONE (11:00)
[2018-03-11 11:46] VITALS: TEMP 98.2
[2018-03-11 12:41] LABS: ALBUMIN 3.8 g/dl (3.4-5.0); ANION GAP 11 (8-16); BLOOD UREA NITROGEN 15 mg/dL (7-18); CALCIUM 8.8 mg/dL (8.5-10.1); CHLORIDE 104 mmol/L (98-107); CO2 25 mmol/L (21-32); GLUCOSE,RANDOM 87 mg/dL (74-106); POTASSIUM 3.5 mmol/L (3.5-5.1); SODIUM 140 mmol/L (136-145)
[2018-03-11] MEDS ORDERED: FLUOROURACIL 4,350 MG in SODIUM CHLORIDE 5 ML CP ONE (13:00)
[2018-03-11 13:13] LABS: ALK PHOS 89 U/L (45-117); BILIRUBIN,DIRECT 0.3 mg/dL (0.0-0.2); BILIRUBIN,TOTAL 1.2 mg/dL (0.2-1.0); CREATININE 1.2 mg/dL (0.7-1.3); SGOT/AST 20 U/L (15-37); SGPT/ALT 28 U/L (12-78); TOT PROT 7.2 g/dl (6.4-8.2)
[2018-03-11 17:01] VITALS: BP 117/89; PULSE 76
--- NOTE | 2018-03-11 17:01 | PN ---
Progress Note (short form) - Note Progress Note: chem reviewed likely non-specific rise in bili will repeat on 6.14
== END 2018-03-11 15:15 | disposition home or self-care (01) ==
LOC: JONCCHEMO 07:34 → J7W 11:11 → JONCCHEMO 15:15
PROVIDERS: ATTEND Internal Medicine Hematology & Oncology
DX: Z51.11 Encounter for antineoplastic chemotherapy (principal); C18.9 Malignant neoplasm of colon, unspecified; C78.7 Secondary malignant neoplasm of liver and intrahepatic bile duct
CPT/HCPCS: 36415; 80048; 80076; 83735; 85025; 96366; 96367; 96375; 96413; 96415; 96417; G0498; J1100; J2469; J9035; J9263

== ENCOUNTER 2018-03-13 09:32 | Day surgery (SDC) | payer BC ==
[2018-03-13] MEDS ORDERED: SODIUM CHLORIDE 1,000 ML IV SCH (14:15)
[2018-03-13 16:09] LABS: ALBUMIN 3.8 g/dl (3.4-5.0); ANION GAP 7 (8-16); BILIRUBIN,TOTAL 1.3 mg/dL (0.2-1.0); BLOOD UREA NITROGEN 24 mg/dL (7-18); CALCIUM 8.6 mg/dL (8.5-10.1); CHLORIDE 105 mmol/L (98-107); CO2 29 mmol/L (21-32); GLUCOSE,RANDOM 78 mg/dL (74-106); POTASSIUM 3.7 mmol/L (3.5-5.1); SGOT/AST 21 U/L (15-37); SGPT/ALT 29 U/L (12-78); SODIUM 141 mmol/L (136-145); TOT PROT 7.3 g/dl (6.4-8.2)
[2018-03-13 16:10] LABS: ALK PHOS 87 U/L (45-117); CREATININE 1.3 mg/dL (0.7-1.3)
[2018-03-13 18:05] VITALS: TEMP 98.4
[2018-03-13 18:09] VITALS: BP 117/86; PULSE 67
[2018-03-13] MEDS ORDERED: PORTA CATH FLUSH 10 ML IVPUSH ONE (18:09)
--- NOTE | 2018-03-14 09:49 | PN ---
Progress Note (short form) - Note Progress Note: received 1L of fluids on 03/13 will assess bili with next blood draw the rest of the LFTs remains stable
== END 2018-03-13 15:45 | disposition home or self-care (01) ==
LOC: JONCCHEMO 09:32 → J7W 14:13 → JONCCHEMO 15:45
PROVIDERS: ATTEND Internal Medicine Hematology & Oncology
PROC: 3E0437Z Introduction of Electrolytic and Water Balance Substance into Central Vein, Percutaneous Approach (ICD-10-PCS; principal; 2018-03-13)
DX: C18.9 Malignant neoplasm of colon, unspecified (principal); C78.7 Secondary malignant neoplasm of liver and intrahepatic bile duct; Z76.89 Persons encountering health services in other specified circumstances
CPT/HCPCS: 36415; 80053; 96361; J7030

== ENCOUNTER 2018-03-27 07:17 | Day surgery (SDC) | payer BC ==
[2018-03-27] MEDS ORDERED: SODIUM CHLORIDE 1,000 ML IV SCH (10:00)
[2018-03-27] MEDS ORDERED: SODIUM CHLORIDE 1,000 ML IV STA (10:00)
[2018-03-27 11:29] LABS: ALBUMIN 3.9 g/dl (3.4-5.0); ANION GAP 8 (8-16); BILIRUBIN,TOTAL 1.3 mg/dL (0.2-1.0); BLOOD UREA NITROGEN 22 mg/dL (7-18); CALCIUM 8.8 mg/dL (8.5-10.1); CHLORIDE 110 mmol/L (98-107); CO2 27 mmol/L (21-32); CREATININE 1.5 mg/dL (0.7-1.3); GLUCOSE,RANDOM 107 mg/dL (74-106); POTASSIUM 3.4 mmol/L (3.5-5.1); SGOT/AST 26 U/L (15-37); SGPT/ALT 34 U/L (12-78); SODIUM 145 mmol/L (136-145); TOT PROT 7.5 g/dl (6.4-8.2)
[2018-03-27 11:30] LABS: ALK PHOS 83 U/L (45-117)
[2018-03-27 17:06] VITALS: BP 101/76; PULSE 95; TEMP 98.9
== END 2018-03-27 13:30 | disposition home or self-care (01) ==
LOC: JONCNONCHE 07:17 → J7W 09:56 → JONCNONCHE 13:30
PROVIDERS: ATTEND Internal Medicine Hematology & Oncology
PROC: 3E043GC Introduction of Other Therapeutic Substance into Central Vein, Percutaneous Approach (ICD-10-PCS; principal; 2018-03-27)
DX: C18.9 Malignant neoplasm of colon, unspecified (principal); C78.7 Secondary malignant neoplasm of liver and intrahepatic bile duct; Z76.89 Persons encountering health services in other specified circumstances
CPT/HCPCS: 36415; 80053; 96361; J7030

== ENCOUNTER 2018-04-08 07:33 | Day surgery (SDC) | payer BC ==
[2018-04-08] MEDS ORDERED: PALONOSETRON HCL 0.25 MG/5 ML VIAL IVPUSH ONE (08:00)
[2018-04-08] MEDS ORDERED: DEXAMETHASONE INJECTION 10 MG in SODIUM CHLORIDE 50 ML IVPB ONE (08:00)
[2018-04-08] MEDS ORDERED: SODIUM CHLORIDE IV ONE (08:30)
[2018-04-08] MEDS ORDERED: BEVACIZUMAB IV ONE (08:30)
[2018-04-08] MEDS ORDERED: WATER IVPB ONE (09:00)
[2018-04-08] MEDS ORDERED: DEXTROSE 5% IV ONE (09:00)
[2018-04-08] MEDS ORDERED: LEUCOVORIN IVPB ONE (09:00)
[2018-04-08] MEDS ORDERED: DEXTROSE 5% IVPB ONE (09:00)
[2018-04-08] MEDS ORDERED: WATER IV ONE (09:00)
[2018-04-08] MEDS ORDERED: OXALIPLATIN IV ONE (09:00)
[2018-04-08 10:38] LABS: EOS % 1.4 % (0-4.5); HEMATOCRIT 34.6 % (35.4-49); HEMOGLOBIN 11.6 GM/dL (11.7-16.9); MCH 29.3 pg (25.7-33.7); MCHC 33.5 g/dl (32.0-35.9); MEAN CELL VOLUME 87.3 fl (80-96); MEAN PLT VOLUME 7.5 fl (7.5-11.1); MONO % 14.3 % (3.8-10.2); NEUT % 57.3 % (42.8-82.8); PLATELET COUNT 142 K/MM3 (134-434); RBC 3.97 M/mm3 (4.00-5.60); RDW 16.6 % (11.9-15.9); WHITE BLOOD COUNT 4.6 K/mm3 (4.0-10.0)
[2018-04-08] MEDS ORDERED: FLUOROURACIL 4,350 MG in SODIUM CHLORIDE 5 ML CP ONE (11:00)
[2018-04-08 11:03] LABS: ALBUMIN 3.5 g/dl (3.4-5.0); ANION GAP 7 (8-16); BILIRUBIN,TOTAL 0.8 mg/dL (0.2-1.0); BLOOD UREA NITROGEN 19 mg/dL (7-18); CALCIUM 8.4 mg/dL (8.5-10.1); CHLORIDE 109 mmol/L (98-107); CO2 26 mmol/L (21-32); CREATININE 1.2 mg/dL (0.7-1.3); GLUCOSE,RANDOM 85 mg/dL (74-106); POTASSIUM 4.1 mmol/L (3.5-5.1); SGOT/AST 21 U/L (15-37); SGPT/ALT 30 U/L (12-78); SODIUM 142 mmol/L (136-145); TOT PROT 6.8 g/dl (6.4-8.2)
[2018-04-08 11:04] LABS: ALK PHOS 77 U/L (45-117)
[2018-04-08 11:23] LABS: URINE APPEARANCE CLEAR; URINE BILIRUBIN NEGATIVE (<2.0 mg/dL); URINE COLOR COLORLESS; URINE GLUCOSE (UA) NEGATIVE (NEGATIVE); URINE KETONE NEGATIVE (NEGATIVE); URINE LEUK ESTERASE NEGATIVE (NEGATIVE); URINE NITRITE NEGATIVE (NEGATIVE); URINE PROTEIN NEGATIVE (NEGATIVE); URINE UROBILINOGEN NEGATIVE mg/dL (0.2-1.0)
[2018-04-08 11:23] LABS: BILIRUBIN,DIRECT < 0.2 mg/dL (0.0-0.2); MAGNESIUM 1.9 mg/dL (1.8-2.4)
[2018-04-08 11:51] VITALS: TEMP 97.8
[2018-04-08 16:20] VITALS: BP 135/96; PULSE 69
[2018-04-08 22:15] LABS: ALBUMIN 3.7 g/dl (3.4-5.0); BILIRUBIN,DIRECT 0.2 mg/dL (0.0-0.2); BILIRUBIN,TOTAL 0.7 mg/dL (0.2-1.0); MAGNESIUM 1.8 mg/dL (1.8-2.4); TOT PROT 6.7 g/dl (6.4-8.2)
== END 2018-04-08 14:40 | disposition home or self-care (01) ==
LOC: JONCCHEMO 07:33 → J7W 11:17 → JONCCHEMO 14:40
PROVIDERS: ATTEND Internal Medicine Hematology & Oncology
DX: Z51.11 Encounter for antineoplastic chemotherapy (principal); C18.9 Malignant neoplasm of colon, unspecified; C78.7 Secondary malignant neoplasm of liver and intrahepatic bile duct
CPT/HCPCS: 36415; 80053; 80076; 81003; 82570; 83735; 84156; 85025; 96366; 96367; 96375; 96413; 96415; 96417; G0498; J1100; J2469; J9035; J9263

== ENCOUNTER 2018-05-27 07:43 | Day surgery (SDC) | payer BC ==
[2018-05-27] MEDS ORDERED: PALONOSETRON HCL 0.25 MG/5 ML VIAL IVPUSH ONE (10:00)
[2018-05-27] MEDS ORDERED: DEXAMETHASONE INJECTION 10 MG in SODIUM CHLORIDE 50 ML IVPB ONE (10:00)
[2018-05-27 10:23] LABS: EOS % 1.6 % (0-4.5); HEMOGLOBIN 12.7 GM/dL (11.7-16.9); MCH 30.5 pg (25.7-33.7); MCHC 34.3 g/dl (32.0-35.9); MEAN CELL VOLUME 88.8 fl (80-96); MEAN PLT VOLUME 7.9 fl (7.5-11.1); MONO % 11.1 % (3.8-10.2); NEUT % 58.3 % (42.8-82.8); PLATELET COUNT 162 K/MM3 (134-434); RBC 4.16 M/mm3 (4.00-5.60); WHITE BLOOD COUNT 4.8 K/mm3 (4.0-10.0)
[2018-05-27] MEDS ORDERED: SODIUM CHLORIDE IV ONE (10:30)
[2018-05-27] MEDS ORDERED: BEVACIZUMAB IV ONE (10:30)
[2018-05-27 10:50] LABS: ALBUMIN 3.8 g/dl (3.4-5.0); ALK PHOS 95 U/L (45-117); ANION GAP 8 MMOL/L (8-16); BILIRUBIN,TOTAL 0.7 mg/dL (0.2-1.0); BLOOD UREA NITROGEN 22 mg/dL (7-18); CALCIUM 8.6 mg/dL (8.5-10.1); CHLORIDE 106 mmol/L (98-107); CO2 26 mmol/L (21-32); CREATININE 1.4 mg/dL (0.7-1.3); GLUCOSE,RANDOM 114 mg/dL (74-106); POTASSIUM 3.8 mmol/L (3.5-5.1); SGOT/AST 18 U/L (15-37); SGPT/ALT 24 U/L (12-78); SODIUM 140 mmol/L (136-145); TOT PROT 7.2 g/dl (6.4-8.2)
[2018-05-27 10:51] LABS: ALBUMIN 3.8 g/dl (3.4-5.0); BILIRUBIN,DIRECT 0.2 mg/dL (0.0-0.2); MAGNESIUM 2.2 mg/dL (1.8-2.4)
[2018-05-27 10:52] LABS: BILIRUBIN,TOTAL 0.8 mg/dL (0.2-1.0); TOT PROT 7.2 g/dl (6.4-8.2)
[2018-05-27] MEDS ORDERED: LEUCOVORIN IVPB ONE (11:00)
[2018-05-27] MEDS ORDERED: WATER IV ONE ×2 (11:00→12:00)
[2018-05-27] MEDS ORDERED: WATER IVPB ONE (11:00)
[2018-05-27] MEDS ORDERED: OXALIPLATIN IV ONE ×2 (11:00→12:00)
[2018-05-27] MEDS ORDERED: DEXTROSE 5% IV ONE ×2 (11:00→12:00)
[2018-05-27] MEDS ORDERED: DEXTROSE 5% IVPB ONE (11:00)
[2018-05-27] MEDS ORDERED: FLUOROURACIL 4,350 MG in SODIUM CHLORIDE 5 ML CP ONE (13:00)
[2018-05-27 14:43] VITALS: TEMP 97.7
[2018-05-27 16:09] VITALS: BP 141/81; PULSE 63
== END 2018-05-27 16:10 | disposition home or self-care (01) ==
LOC: JONCCHEMO 07:43 → J7W 11:42 → JONCCHEMO 16:10
PROVIDERS: ATTEND Internal Medicine Hematology & Oncology
DX: Z51.11 Encounter for antineoplastic chemotherapy (principal); C18.9 Malignant neoplasm of colon, unspecified; C78.7 Secondary malignant neoplasm of liver and intrahepatic bile duct
CPT/HCPCS: 36415; 80053; 80076; 83735; 85025; 96375; 96413; 96415; 96417; J1100; J2469; J9035; J9263

== ENCOUNTER 2018-06-11 07:39 | Day surgery (SDC) | payer BC ==
[2018-06-11] MEDS ORDERED: DEXAMETHASONE INJECTION 10 MG in SODIUM CHLORIDE 50 ML IVPB ONE (08:00)
[2018-06-11] MEDS ORDERED: PALONOSETRON HCL 0.25 MG/5 ML VIAL IVPUSH ONE (08:00)
[2018-06-11] MEDS ORDERED: BEVACIZUMAB IV ONE (08:30)
[2018-06-11] MEDS ORDERED: SODIUM CHLORIDE IV ONE (08:30)
[2018-06-11] MEDS ORDERED: WATER IV ONE (09:00)
[2018-06-11] MEDS ORDERED: LEUCOVORIN IVPB ONE (09:00)
[2018-06-11] MEDS ORDERED: DEXTROSE 5% IV ONE (09:00)
[2018-06-11] MEDS ORDERED: OXALIPLATIN IV ONE (09:00)
[2018-06-11] MEDS ORDERED: DEXTROSE 5% IVPB ONE (09:00)
[2018-06-11] MEDS ORDERED: WATER IVPB ONE (09:00)
[2018-06-11 10:33] LABS: BASO % 0.9 % (0-2.0); EOS % 1.2 % (0-4.5); HEMATOCRIT 39.4 % (35.4-49); HEMOGLOBIN 13.3 GM/dL (11.7-16.9); LYMPH % 21.8 % (8-40); MCH 29.8 pg (25.7-33.7); MCHC 33.7 g/dl (32.0-35.9); MEAN CELL VOLUME 88.4 fl (80-96); MEAN PLT VOLUME 8.1 fl (7.5-11.1); MONO % 12.1 % (3.8-10.2); PLATELET COUNT 144 K/MM3 (134-434); RBC 4.46 M/mm3 (4.00-5.60); RDW 15.8 % (11.9-15.9); WHITE BLOOD COUNT 5.5 K/mm3 (4.0-10.0)
[2018-06-11] MEDS ORDERED: SODIUM CHLORIDE CP ONE (11:00)
[2018-06-11] MEDS ORDERED: FLUOROURACIL CP ONE (11:00)
[2018-06-11 11:07] LABS: ALBUMIN 3.8 g/dl (3.4-5.0); ANION GAP 10 MMOL/L (8-16); BILIRUBIN,DIRECT 0.2 mg/dL (0.0-0.2); BLOOD UREA NITROGEN 15 mg/dL (7-18); CALCIUM 8.6 mg/dL (8.5-10.1); CHLORIDE 105 mmol/L (98-107); CO2 25 mmol/L (21-32); CREATININE 1.2 mg/dL (0.7-1.3); GLUCOSE,RANDOM 96 mg/dL (74-106); MAGNESIUM 2.5 mg/dL (1.8-2.4); SGOT/AST 21 U/L (15-37); SGPT/ALT 22 U/L (12-78); SODIUM 140 mmol/L (136-145)
[2018-06-11 11:08] LABS: ALK PHOS 92 U/L (45-117); TOT PROT 7.4 g/dl (6.4-8.2)
[2018-06-11 11:10] LABS: TOT PROT 7.4 g/dl (6.4-8.2)
[2018-06-11 17:31] VITALS: TEMP 97.9
[2018-06-11 17:42] VITALS: BP 137/97; PULSE 65
== END 2018-06-11 16:25 | disposition home or self-care (01) ==
LOC: JONCCHEMO 07:39 → J7W 12:40 → JONCCHEMO 16:25
PROVIDERS: ATTEND Internal Medicine Hematology & Oncology
DX: Z51.11 Encounter for antineoplastic chemotherapy (principal); C18.9 Malignant neoplasm of colon, unspecified; C78.7 Secondary malignant neoplasm of liver and intrahepatic bile duct
CPT/HCPCS: 36415; 80053; 80076; 83735; 85025; 96366; 96367; 96375; 96413; 96415; 96417; G0498; J1100; J2469; J9035

== ENCOUNTER 2018-06-25 07:43 | Day surgery (SDC) | payer BC ==
[2018-06-25] MEDS ORDERED: DEXAMETHASONE INJECTION 10 MG in SODIUM CHLORIDE 50 ML IVPB ONE (08:00)
[2018-06-25] MEDS ORDERED: PALONOSETRON HCL 0.25 MG/5 ML VIAL IVPUSH ONE (08:00)
[2018-06-25] MEDS ORDERED: BEVACIZUMAB IV ONE (08:30)
[2018-06-25] MEDS ORDERED: SODIUM CHLORIDE IV ONE (08:30)
[2018-06-25] MEDS ORDERED: WATER IVPB ONE (09:00)
[2018-06-25] MEDS ORDERED: LEUCOVORIN IVPB ONE (09:00)
[2018-06-25] MEDS ORDERED: DEXTROSE 5% IVPB ONE (09:00)
[2018-06-25 10:57] LABS: BASO % 0.9 % (0-2.0); HEMATOCRIT 39.9 % (35.4-49); HEMOGLOBIN 13.2 GM/dL (11.7-16.9); LYMPH % 28.5 % (8-40); MCH 29.4 pg (25.7-33.7); MCHC 33.1 g/dl (32.0-35.9); MEAN CELL VOLUME 88.7 fl (80-96); MEAN PLT VOLUME 7.7 fl (7.5-11.1); MONO % 9.3 % (3.8-10.2); NEUT % 60.3 % (42.8-82.8); PLATELET COUNT 196 K/MM3 (134-434); RDW 15.4 % (11.9-15.9); WHITE BLOOD COUNT 5.5 K/mm3 (4.0-10.0)
[2018-06-25] MEDS ORDERED: SODIUM CHLORIDE CP ONE (11:00)
[2018-06-25] MEDS ORDERED: FLUOROURACIL CP ONE (11:00)
[2018-06-25 11:31] LABS: ALBUMIN 3.8 g/dl (3.4-5.0); BILIRUBIN,DIRECT 0.2 mg/dL (0.0-0.2); BILIRUBIN,TOTAL 0.7 mg/dL (0.2-1); MAGNESIUM 2.1 mg/dL (1.8-2.4); TOT PROT 7.5 g/dl (6.4-8.2)
[2018-06-25 11:57] LABS: ALBUMIN 3.8 g/dl (3.4-5.0); ALK PHOS 98 U/L (45-117); ANION GAP 9 MMOL/L (8-16); BILIRUBIN,TOTAL 0.7 mg/dL (0.2-1); BLOOD UREA NITROGEN 16 mg/dL (7-18); CHLORIDE 107 mmol/L (98-107); CO2 26 mmol/L (21-32); CREATININE 1.2 mg/dL (0.55-1.3); GLUCOSE,RANDOM 77 mg/dL (74-106); POTASSIUM 3.9 mmol/L (3.5-5.1); SGOT/AST 18 U/L (15-37); SGPT/ALT 19 U/L (13-61); SODIUM 141 mmol/L (136-145); TOT PROT 7.4 g/dl (6.4-8.2)
[2018-06-25 14:35] LABS: URINE APPEARANCE CLEAR; URINE BILIRUBIN NEGATIVE (<2.0 mg/dL); URINE COLOR LTYELLOW; URINE GLUCOSE (UA) NEGATIVE (NEGATIVE); URINE KETONE NEGATIVE (NEGATIVE); URINE LEUK ESTERASE NEGATIVE (NEGATIVE); URINE NITRITE NEGATIVE (NEGATIVE); URINE PROTEIN NEGATIVE (NEGATIVE)
[2018-06-25 15:52] VITALS: TEMP 97.7
[2018-06-25 16:35] VITALS: BP 157/94; PULSE 77
== END 2018-06-25 15:30 | disposition home or self-care (01) ==
LOC: JONCCHEMO 07:43 → J7W 11:33 → JONCCHEMO 15:30
PROVIDERS: ATTEND Internal Medicine Hematology & Oncology
DX: Z51.11 Encounter for antineoplastic chemotherapy (principal); C18.9 Malignant neoplasm of colon, unspecified; C78.7 Secondary malignant neoplasm of liver and intrahepatic bile duct
CPT/HCPCS: 36415; 80053; 80076; 81003; 82378; 82607; 83735; 84439; 84443; 85025; 96366; 96367; 96375; 96413; 96415; 96417; G0498; J1100; J2469; J9035

== ENCOUNTER 2018-06-27 07:38 | Day surgery (SDC) | payer BC ==
[2018-06-27 17:55] VITALS: BP 130/88; PULSE 74; TEMP 98.5
[2018-06-27] MEDS ORDERED: PORTA CATH FLUSH 10 ML IVPUSH ONE (17:59)
== END 2018-06-27 14:30 | disposition home or self-care (01) ==
LOC: JONCCHEMO 07:38 → J7W 14:30
PROVIDERS: ATTEND Internal Medicine Hematology & Oncology
PROC: 0JPVXVZ Removal of Infusion Pump from Upper Extremity Subcutaneous Tissue and Fascia, External Approach (ICD-10-PCS; principal; 2018-06-27)
DX: Z53.8 Procedure and treatment not carried out for other reasons (principal)

== ENCOUNTER 2018-07-09 07:37 | Day surgery (SDC) | payer BC ==
[2018-07-09] MEDS ORDERED: PALONOSETRON HCL 0.25 MG/5 ML VIAL IVPUSH ONE (10:00)
[2018-07-09] MEDS ORDERED: DEXAMETHASONE INJECTION 10 MG in SODIUM CHLORIDE 50 ML IVPB ONE (10:00)
[2018-07-09] MEDS ORDERED: BEVACIZUMAB IV ONE (10:30)
[2018-07-09] MEDS ORDERED: SODIUM CHLORIDE IV ONE (10:30)
[2018-07-09 10:53] LABS: BASO % 0.6 % (0-2.0); EOS % 0.4 % (0-4.5); HEMATOCRIT 39.5 % (35.4-49); HEMOGLOBIN 13.1 GM/dL (11.7-16.9); MCH 28.8 pg (25.7-33.7); MEAN CELL VOLUME 87.3 fl (80-96); MEAN PLT VOLUME 7.5 fl (7.5-11.1); MONO % 13.4 % (3.8-10.2); NEUT % 65.6 % (42.8-82.8); PLATELET COUNT 176 K/MM3 (134-434); RBC 4.53 M/mm3 (4.00-5.60); RDW 15.5 % (11.9-15.9); WHITE BLOOD COUNT 7.6 K/mm3 (4.0-10.0)
[2018-07-09] MEDS ORDERED: LEUCOVORIN IVPB ONE (11:00)
[2018-07-09] MEDS ORDERED: WATER IVPB ONE (11:00)
[2018-07-09] MEDS ORDERED: DEXTROSE 5% IVPB ONE (11:00)
[2018-07-09 11:33] LABS: ALBUMIN 3.7 g/dl (3.4-5.0); BILIRUBIN,DIRECT 0.4 mg/dL (0.0-0.2); BILIRUBIN,TOTAL 2.4 mg/dL (0.2-1); MAGNESIUM 2.2 mg/dL (1.8-2.4); TOT PROT 7.3 g/dl (6.4-8.2)
[2018-07-09 11:36] LABS: ALBUMIN 3.7 g/dl (3.4-5.0); ALK PHOS 111 U/L (45-117); ANION GAP 8 MMOL/L (8-16); BILIRUBIN,TOTAL 2.3 mg/dL (0.2-1); BLOOD UREA NITROGEN 15 mg/dL (7-18); CALCIUM 9.1 mg/dL (8.5-10.1); CHLORIDE 103 mmol/L (98-107); CO2 27 mmol/L (21-32); CREATININE 1.2 mg/dL (0.55-1.3); GLUCOSE,RANDOM 72 mg/dL (74-106); POTASSIUM 3.9 mmol/L (3.5-5.1); SGOT/AST 20 U/L (15-37); SGPT/ALT 25 U/L (13-61); SODIUM 139 mmol/L (136-145); TOT PROT 7.4 g/dl (6.4-8.2)
[2018-07-09] MEDS ORDERED: SODIUM CHLORIDE 500 ML IV STA (11:43)
[2018-07-09] MEDS ORDERED: SODIUM CHLORIDE CP ONE (13:00)
[2018-07-09] MEDS ORDERED: FLUOROURACIL CP ONE (13:00)
[2018-07-09 17:20] VITALS: TEMP 97.4
[2018-07-09 17:32] VITALS: BP 122/76; PULSE 85
[2018-07-09] MEDS ORDERED: PORTA CATH FLUSH 10 ML IVPUSH ONE (17:32)
== END 2018-07-09 15:10 | disposition home or self-care (01) ==
LOC: JONCCHEMO 07:37 → J7W 12:17 → JONCCHEMO 15:10
PROVIDERS: ATTEND Internal Medicine Hematology & Oncology
DX: Z51.11 Encounter for antineoplastic chemotherapy (principal); C18.9 Malignant neoplasm of colon, unspecified; C78.7 Secondary malignant neoplasm of liver and intrahepatic bile duct
CPT/HCPCS: 36415; 80053; 80076; 83735; 85025; 96361; 96375; 96413; J1100; J9035

== ENCOUNTER 2018-07-30 13:01 | Day surgery (SDC) | payer BC ==
[2018-07-30] MEDS ORDERED: SODIUM CHLORIDE 500 ML IV ONE (14:30)
[2018-07-30] MEDS ORDERED: DIPHENHYDRAMINE 25 MG in SODIUM CHLORIDE 50 ML IVPB ONE (14:30)
[2018-07-30] MEDS ORDERED: ACETAMINOPHEN 325 MG TABLET (FP) PO ONE (14:30)
[2018-07-30] MEDS ORDERED: SODIUM CHLORIDE IV ONE (15:00)
[2018-07-30] MEDS ORDERED: BEVACIZUMAB IV ONE (15:00)
[2018-07-30 15:12] LABS: MCH 27.8 pg (25.7-33.7); MCHC 32.4 g/dl (32.0-35.9); MEAN CELL VOLUME 85.8 fl (80-96); PLATELET COUNT 321 K/MM3 (134-434); RBC 4.31 M/mm3 (4.00-5.60); RDW 15.9 % (11.9-15.9); WHITE BLOOD COUNT 11.4 K/mm3 (4.0-10.0)
[2018-07-30 15:48] LABS: ALBUMIN 3.4 g/dl (3.4-5.0); ALK PHOS 366 U/L (45-117); ANION GAP 11 MMOL/L (8-16); BLOOD UREA NITROGEN 19 mg/dL (7-18); CALCIUM 8.9 mg/dL (8.5-10.1); CHLORIDE 97 mmol/L (98-107); CO2 27 mmol/L (21-32); CREATININE 1.2 mg/dL (0.55-1.3); GLUCOSE,RANDOM 75 mg/dL (74-106); POTASSIUM 3.7 mmol/L (3.5-5.1); SGOT/AST 39 U/L (15-37); SGPT/ALT 45 U/L (13-61); SODIUM 134 mmol/L (136-145); TOT PROT 7.9 g/dl (6.4-8.2)
[2018-07-30 16:32] VITALS: TEMP 97.9
[2018-07-30] MEDS ORDERED: PORTA CATH FLUSH 10 ML IVPUSH ONE ×2 (16:32→16:36)
[2018-07-30 16:36] VITALS: BP 137/71; PULSE 76
== END 2018-07-30 16:49 | disposition home or self-care (01) ==
LOC: JONCCHEMO 13:01 → J7W 13:26 → JONCCHEMO 16:49
PROVIDERS: ATTEND Internal Medicine Hematology & Oncology
DX: Z51.11 Encounter for antineoplastic chemotherapy (principal); C18.9 Malignant neoplasm of colon, unspecified; C78.7 Secondary malignant neoplasm of liver and intrahepatic bile duct
CPT/HCPCS: 36415; 80053; 85027; 96361; 96375; 96413; J9035

== ENCOUNTER 2018-08-16 04:58 | Inpatient (IN) | payer BC ==
--- NOTE | 2018-08-16 05:05 | PDOC ---
History of Present Illness - General Chief Complaint: Back Pain Stated Complaint: L FLANK PAIN Time Seen by Provider: 08/16/18 05:04 - History of Present Illness Initial Comments: 08/16/18 07:17 Pt comes with back pain and body aches and decreased appetite; 15th round of chemo. Dr. Buckner is his oncologist. Past History - Travel Traveled outside of the country in the last 30 days: No Close contact w/someone who was outside of country & ill: No - Past Medical History Allergies/Adverse Reactions: Allergies Allergy/AdvReac Type Severity Reaction Status Date / Time shellfish derived Allergy Verified 08/16/18 05:16 Home Medications: Ambulatory Orders Losartan/Hydrochlorothiazide [Hyzaar 100-25 Tablet] 1 each PO DAILY #14 tablet 11/18/14 Carvedilol [Coreg -] 12.5 mg PO BID #28 tablet 09/18/16 Acetaminophen [Tylenol .Regular Strength -] 650 mg PO Q4H PRN tablet 10/29/17 Anemia: No Asthma: No Cancer: No Cardiac Disorders: No CVA: No COPD: No CHF: No Dementia: No Diabetes: No GI Disorders: No Disorders: No HTN: Yes Hypercholesterolemia: No Liver Disease: No Seizures: No Thyroid Disease: No - Surgical History Abdominal Surgery: No Appendectomy: No Cardiac Surgery: No Cholecystectomy: No Lung Surgery: No Neurologic Surgery: No Orthopedic Surgery: Yes (rotater cuff 2016) - Suicide/Smoking/Psychosocial Hx Smoking History: Never smoked Have you smoked in the past 12 months: No Hx Alcohol Use: No Drug/Substance Use Hx: Yes (Stopped smoking marijuanna about a year ago) Substance Use Type: Marijuana Hx Substance Use Treatment: No Review of Systems - Review of Systems Able to Perform ROS?: Yes Is the patient limited Lao proficient: No Constitutional: Yes: Loss of Appetite, Malaise, Weakness, Unintentional Wgt. Loss. No: Symptoms Reported, See HPI, Chills, Diaphoresis, Fever, Night Sweats , Weight Stable, Unexplained wgt Loss, Other HEENTM: No: Symptoms Reported, See HPI, Eye Pain, Blurred Vision, Tearing, Recent change in vision, Double Vision, Cataracts, Ear Pain, Ocular Prothesis, Ear Discharge, Nose Pain, Nose Congestion, Tinnitus, Nose Bleeding, Hearing Loss , Throat Pain, Throat Swelling, Mouth Pain, Dental Problems, Difficulty Swallowing, Mouth Swelling, Other Respiratory: No: Symptoms reported, See HPI, Cough, Orthopnea, Shortness of Breath, SOB with Exertion, SOB at Rest, Stridor, Wheezing, Productive cough, Hemoptysis, Other Cardiac (ROS): Yes: Lightheadedness. No: Symptoms Reported, See HPI, Chest Pain , Edema, Irregular Heart Rate, Palpitations, Syncope, Chest Tightness, Other ABD/GI: Yes: Poor Appetite, Poor Fluid Intake. No: Symptoms Reported, See HPI, Abdominal Distended, Abd. Pain w/ defecation, Blood Streaked Bowels, Constipated , Diarrhea, Difficulty Swallowing, Nausea, Rectal Bleeding, Vomiting, Indigestion, Abdominal cramping, Tarry Stools, Other : No: Symptoms Reported, See HPI, Burning, Dysuria, Discharge, Frequency, Flank Pain, Hematuria, Incontinence, Pain, Urgency, Testicular Mass, Testicular Swelling, Lesions, Testicular Pain, Other Musculoskeletal: Yes: Back Pain, Muscle Weakness, Joint Stiffness. No: Symptoms Reported, See HPI, Gout, Joint Pain, Joint Swelling, Muscle Pain, Neck Pain, Other Integumentary: No: Symptoms Reported, See HPI, Bruising, Change in Color, Change in Hair/Nails, Dryness, Erythema, Flushing, Lesions, Lumps, Pallor, Pruritus, Rash, Sweating, Other Neurological: No: Symptoms reported, See HPI, Headache, Numbness, Paresthesia, Pre-Existing Deficit, Seizure, Tingling, Tremors, Weakness, Unsteady Gait, Ataxia, Dizziness, Other Psychiatric: No: Anxiety, Depression, Frequent Crying, Stressors, Sleep Pattern Change, Emotional Problems, Mood Swings, Change in Appetite, Other Endocrine: No: Symptoms Reported, See HPI, Excessive Sweating, Flushing, Intolerance to Cold, Intolerance to Heat, Increased Hunger, Increased Thirst, Increased Urine, Unexplained Weight Gain, Unexplained Weight Loss, Change in Weight, Other Hematologic/Lymphatic: No: Symptoms Reported, See HPI, Anemia, Blood Clots, Easy Bleeding, Easy Bruising, Bleeding Diathesis, Lymph Node Abnormalities, Swollen Glands, Other *Physical Exam - Physical Exam General Appearance: Yes: Nourished, Appropriately Dressed, Mild Distress HEENT: positive: EOMI, FAVIO, Normal ENT Inspection, Normal Voice, TMs Normal Neck: positive: Trachea midline, Supple Respiratory/Chest: positive: Lungs Clear, Normal Breath Sounds Cardiovascular: positive: Regular Rhythm, Regular Rate, S1, S2 Gastrointestinal/Abdominal: positive: Normal Bowel Sounds, Flat, Soft Musculoskeletal: positive: Normal Inspection, CVA Tenderness Extremity: positive: Normal Capillary Refill, Normal Inspection, Normal Range of Motion Integumentary: positive: Normal Color, Dry, Warm Neurologic: positive: faucet polisher II-XII NML intact, Fully Oriented, Alert, Normal Mood/ Affect, Normal Response, Motor Strength 02/01 ED Treatment Course - LABORATORY CBC & Chemistry Diagram: 08/16/18 05:52 08/16/18 05:52 Medical Decision Making - Medical Decision Making 08/16/18 07:18 Pt signed out to the AM ER doc. *DC/Admit/Observation/Transfer Diagnosis at time of Disposition: Musculoskeletal pain - Discharge Dispostion Condition at time of disposition: Improved Decision to Admit order: No - Referrals - Patient Instructions Printed Discharge Instructions: Vegan Diet (Alternative Therapy) - Post Discharge Activity
[2018-08-16] MEDS ORDERED: morphine CARPU-JECT 2 MG/1 ML DISP.SYRIN IVPUSH ONE ×2 (05:41→08:58)
[2018-08-16] MEDS ORDERED: SODIUM CHLORIDE 0.9% 500 ML INFUS.BAG IV ONE (05:41)
[2018-08-16] MEDS ORDERED: MORPHINE SULFATE 2 MG/ML VIAL ONE ×2 (05:55→09:41)
[2018-08-16 06:10] LABS: BASO % 0.1 % (0-2.0); EOS % 0.1 % (0-4.5); HEMATOCRIT 32.6 % (35.4-49); HEMOGLOBIN 10.5 GM/dL (11.7-16.9); MCH 26.7 pg (25.7-33.7); MCHC 32.2 g/dl (32.0-35.9); MEAN CELL VOLUME 82.8 fl (80-96); MEAN PLT VOLUME 8.3 fl (7.5-11.1); NEUT % 90.8 % (42.8-82.8); PLATELET COUNT 229 K/MM3 (134-434); RBC 3.94 M/mm3 (4.00-5.60); RDW 17.6 % (11.9-15.9)
[2018-08-16] MEDS ORDERED: HEMOQUE TEST 1 EACH EACH ONE (06:22)
[2018-08-16 06:24] LABS: ALK PHOS 396 U/L (45-117); ANION GAP 13 MMOL/L (8-16); BILIRUBIN,TOTAL 1.9 mg/dL (0.2-1); BLOOD UREA NITROGEN 45 mg/dL (7-18); CALCIUM 7.7 mg/dL (8.5-10.1); CHLORIDE 99 mmol/L (98-107); CO2 22 mmol/L (21-32); CREATININE 1.5 mg/dL (0.55-1.3); GLUCOSE,RANDOM 88 mg/dL (74-106); POTASSIUM 3.6 mmol/L (3.5-5.1); SGOT/AST 222 U/L (15-37); SGPT/ALT 84 U/L (13-61); SODIUM 134 mmol/L (136-145); TOT PROT 6.1 g/dl (6.4-8.2)
--- NOTE | 2018-08-16 07:30 | PDOC ---
*Physical Exam - Vital Signs Last Vital Signs Temp Pulse Resp BP Pulse Ox 97.8 F 88 18 110/70 96 08/16/18 05:00 08/16/18 07:20 08/16/18 07:20 08/16/18 07:20 08/16/18 07:20 - Physical Exam Comments: GENERAL: Awake, alert, and fully oriented, in no acute distress HEAD: No signs of trauma EYES: PERRLA, EOMI, sclera anicteric, conjunctiva clear ENT: Auricles normal inspection, hearing grossly normal, nares patent, oropharynx clear without exudates. Moist mucosa NECK: Normal ROM, supple, no lymphadenopathy, JVD, or masses LUNGS: Breath sounds equal, clear to auscultation bilaterally. No wheezes, and no crackles HEART: Regular rate and rhythm, normal S1 and S2, no murmurs, rubs or gallops ABDOMEN: Soft, nontender, normoactive bowel sounds. No guarding, no rebound. No masses EXTREMITIES: Normal range of motion, no edema. No clubbing or cyanosis. No cords, erythema, or tenderness NEUROLOGICAL: Cranial nerves II through XII grossly intact. Normal speech. Motor and sensation intact. SKIN: Warm, Dry, normal turgor, no rashes or lesions noted. SPINE: +Midline tenderness L4-L5 region. No stepoffs. L SLR positive (patient barely able to raise leg off the bed, elicits pain immediately). ED Treatment Course - LABORATORY CBC & Chemistry Diagram: 08/16/18 05:52 08/16/18 05:52 - ADDITIONAL ORDERS Additional order review: Laboratory Results 08/16/18 05:52 Sodium 134 L Potassium 3.6 Chloride 99 Carbon Dioxide 22 Anion Gap 13 BUN 45 H Creatinine 1.5 H Creat Clearance w eGFR 49.74 Random Glucose 88 Calcium 7.7 L Total Bilirubin 1.9 H AST 222 H ALT 84 H Alkaline Phosphatase 396 H Total Protein 6.1 L Albumin 2.0 L 08/16/18 05:52 RBC 3.94 L MCV 82.8 MCHC 32.2 RDW 17.6 H MPV 8.3 Neutrophils % 90.8 H Lymphocytes % 4.0 L D Monocytes % 5.0 Eosinophils % 0.1 D Basophils % 0.1 - Medications Given in the ED: ED Medications Discontinued Medications Generic Name Dose Route Start Last Admin Trade Name Freq PRN Reason Stop Dose Admin Morphine Sulfate 2 mg 08/16/18 05:41 08/16/18 06:04 Morphine Injection - IVPUSH 08/16/18 05:42 2 mg ONCE ONE Administration Sodium Chloride 1,000 ml 08/16/18 05:41 08/16/18 06:05 Normal Saline - IV 08/16/18 05:42 1,000 ml ONCE ONE Administration Medical Decision Making - Medical Decision Making 08/16/18 08:52 Assumed care at 7am shift change. Patient c/o back pain, history of colon CA on chemo with Dr. Presley. He reports improvement in symptoms with morphine given prior to my arrival. Noted to have positive SLR on L with midline back tenderness. Will obtain CT to r/o a spinal lesion vs vertebral compression fracture causing sciatica. 08/16/18 13:37 CT results d/w patient. He is reporting improvement with pain medication, however, if he moves his leg or attempts to stand, he has severe sharp pain. He is unable to walk and high risk for falls. Lives alone. D/w Dr. Harris, recommended admission and MRI. *DC/Admit/Observation/Transfer Diagnosis at time of Disposition: Sciatica of left side - Discharge Dispostion Condition at time of disposition: Stable Decision to Admit order: Yes - Referrals - Patient Instructions - Post Discharge Activity
[2018-08-16 12:22] LABS: ANISOCYTOSIS 1+; MACROCYTOSIS 0; PLATELET ESTIMATE NORMAL
[2018-08-16] MEDS: oxyCODONE HCL 5 MG TABLET PO PRN (16:49)
[2018-08-16] MEDS: ACETAMINOPHEN 325 MG TABLET (FP) PO PRN (16:50)
[2018-08-16] MEDS ORDERED: oxyCODONE HCL 5 MG TABLET ONE (16:52)
[2018-08-16] MEDS: CARVEDILOL 12.5 MG TABLET (FP) PO SCH (21:13)
[2018-08-16] MEDS: DOCUSATE SODIUM 100 MG CAPSULE (FP) PO SCH (21:13)
[2018-08-16] MEDS: GABAPENTIN 300 MG CAPSULE (FP) PO SCH (21:14)
--- NOTE | 2018-08-16 22:58 | CONSULT ---
Consult Consult Specialty:: Hematology/Oncology Referred by:: Dr. Cecile Solo Reason for Consultation:: colon cancer - History of Present Illness Chief Complaint: left leg pain History of Present Illness: 48 year old man with metastatic colon cancer on 5FU/avastin (oxaliplatin on hold due to neuropathy) admitted with severe left leg pain. Pt was seen by Dr. Elias on 07/30 and had complained of left leg weakness for more than a month. Was planned for MRI L/S spine. About 2 days ago, pt was getting out of a shower and felt severe pain in the area of left buttock and shooting down the entire leg. He has had the same pain since, exacerbated by walking and almost any movement. States that this is completely different from symptoms he reported on 07/30. Denies back pain, loss of bowel function or urinary incontinence/hesitancy. 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 History of Recent Travel: No Home Medications - Allergies Allergies/Adverse Reactions: Allergies Allergy/AdvReac Type Severity Reaction Status Date / Time shellfish derived Allergy Verified 08/16/18 05:16 - Home Medications Home Medications: Ambulatory Orders Losartan/Hydrochlorothiazide [Hyzaar 100-25 Tablet] 1 each PO DAILY #14 tablet 11/18/14 Carvedilol [Coreg -] 12.5 mg PO BID #28 tablet 09/18/16 Acetaminophen [Tylenol .Regular Strength -] 650 mg PO Q4H PRN tablet 10/29/17 Family Disease History - Family Disease History Family Disease History: CA: Sister ( ovarian cancer in her 30s), Other: Father (CVA, HTN, colon polyps ), Mother (HTN, no polyps on colonoscopy) Review of Systems - Review of Systems Constitutional: reports: No Symptoms Neck: reports: No Symptoms Cardiovascular: reports: No Symptoms Respiratory: reports: No Symptoms Gastrointestinal: reports: No Symptoms Physical Exam Vital Signs: Vital Signs Temperature 97.5 F L 08/16/18 17:23 Pulse Rate 107 H 08/16/18 17:23 Respiratory Rate 18 08/16/18 17:23 Blood Pressure 99/56 L 08/16/18 17:23 O2 Sat by Pulse Oximetry (%) 98 08/16/18 17:23 Constitutional: Yes: Calm, Mild Distress Eyes: Yes: WNL Cardiovascular: Yes: Regular Rate and Rhythm Respiratory: Yes: Regular, CTA Bilaterally Gastrointestinal: Yes: WNL, Soft Extremities: Yes: WNL Edema: No Neurological: Yes: Alert, Oriented, Other (Full strenth in RLE, exam of LLE limited by pain, pt declined to sit up for spine palpation due to leg pain, no saddle anesthesia) Labs: CBC, BMP 08/16/18 05:52 08/16/18 05:52 Imaging - Results Cat Scan: Report Reviewed Problem List - Problems (1) Sciatica of left side Assessment/Plan: CT without contrast of L spine with degenerative changes, no lesions. Cannot fully evaluate for neurologic deficits on exam as patient is in significant pain. Appears to have sciatica but please obtain MRI of T/L/S spine to rule out mass lesion given metastatic colon cancer Optimize pain control. Will follow. Code(s): M54.32 - SCIATICA, LEFT SIDE
[2018-08-17] MEDS: DEXAMETHASONE SOD PHOSPHATE 4 MG/1 ML VIAL IVPB SCH ×2 (03:35→08:17)
[2018-08-17] MEDS: GABAPENTIN 300 MG CAPSULE (FP) PO SCH ×3 (05:43→15:47)
[2018-08-17] MEDS: DOCUSATE SODIUM 100 MG CAPSULE (FP) PO SCH ×4 (05:44→22:05)
[2018-08-17] MEDS: ACETAMINOPHEN 325 MG TABLET (FP) PO PRN (08:17)
[2018-08-17] MEDS: oxyCODONE HCL 5 MG TABLET PO PRN ×2 (08:18→17:27)
[2018-08-17] MEDS ORDERED: LORazepam 2 MG/ML SDV VIAL IVPUSH ONE (08:47)
[2018-08-17] MEDS ORDERED: LORazepam 2 MG/ML SDV VIAL ONE (08:47)
--- NOTE | 2018-08-17 08:48 | HP ---
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 History of Recent Travel: No Home Medications - Allergies Allergies/Adverse Reactions: Allergies Allergy/AdvReac Type Severity Reaction Status Date / Time shellfish derived Allergy Verified 08/16/18 05:16 - Home Medications Home Medications: Ambulatory Orders Losartan/Hydrochlorothiazide [Hyzaar 100-25 Tablet] 1 each PO DAILY #14 tablet 11/18/14 Carvedilol [Coreg -] 12.5 mg PO BID #28 tablet 09/18/16 Acetaminophen [Tylenol .Regular Strength -] 650 mg PO Q4H PRN tablet 10/29/17 Family Disease History - Family Disease History Family Disease History: CA: Sister ( ovarian cancer in her 30s), Other: Father (CVA, HTN, colon polyps ), Mother (HTN, no polyps on colonoscopy) Review of Systems - Review of Systems Constitutional: reports: Unintentional Wgt. Loss, Weakness. denies: Chills Musculoskeletal: reports: Back Pain, Decreased ROM, Extremity Pain, Muscle Weakness Physical Examination Vital Signs: Vital Signs Temperature 99.2 F 08/17/18 06:00 Pulse Rate 99 H 08/17/18 06:00 Respiratory Rate 18 08/17/18 06:00 Blood Pressure 85/61 L 08/17/18 06:00 O2 Sat by Pulse Oximetry (%) 98 08/16/18 17:23 Constitutional: Yes: No Distress, Anxious Cardiovascular: Yes: Regular Rate and Rhythm Respiratory: Yes: CTA Bilaterally Gastrointestinal: Yes: Normal Bowel Sounds, Soft, Other (colostomy). No: Tenderness Extremities: Yes: Other (positive SLR left) Edema: No Neurological: Yes: Alert, Oriented Labs: CBC, BMP 08/16/18 05:52 08/16/18 05:52 Imaging - Results Cat Scan: Report Reviewed (lumbar spine CT) Problem List - Problems (1) Intractable back pain Code(s): M54.9 - DORSALGIA, UNSPECIFIED (2) Metastatic colon cancer to liver Code(s): C18.9 - MALIGNANT NEOPLASM OF COLON, UNSPECIFIED; C78.7 - SECONDARY MALIG NEOPLASM OF LIVER AND INTRAHEPATIC BILE DUCT (3) Neuropathy Code(s): G62.9 - POLYNEUROPATHY, UNSPECIFIED (4) Sciatica of left side Code(s): M54.32 - SCIATICA, LEFT SIDE (5) Hypertension Code(s): I10 - ESSENTIAL (PRIMARY) HYPERTENSION Assessment/Plan PLAN High risk of fall as pt unable to move due to pain check MRI T/LS spine Oncology eval pain meds physical therapy Neurology consulted ?need for steroids
[2018-08-17] MEDS: SODIUM CHLORIDE 1,000 ML IV SCH (11:00)
[2018-08-17] MEDS: CARVEDILOL 12.5 MG TABLET (FP) PO SCH ×2 (15:43→22:05)
[2018-08-17] MEDS: LOSARTAN 50MG/HCTZ 12.5MG 1 TAB (FP) PO SCH (15:43)
[2018-08-17] MEDS: PANTOPRAZOLE 40 MG TABLET (FP) PO SCH (15:47)
--- NOTE | 2018-08-17 15:59 | CON.NEURO ---
Consult Consult Specialty:: [facility] Neurology Referred by:: Dr Presley - History of Present Illness History of Present Illness: this is a 48-year-old very nice -Nepalese man with history of unfortunately advanced adenocarcinoma of the colon status post resection currently on chemotherapy patient of mine from the office well known to me with chief complaint of difficulty with his legs and numbness and tingling came into the hospital with severe unrelenting leg weakness and pain. Patient was admitted with questionable spinal cord compression MRI of the thoracic spine and lumbosacral spine were obtained. According to the patient this pain started 3 days ago no history of trauma patient with chronic low back soreness no symptoms on the right leg no symptoms on the left arm. I reviewed the images of the thoracic and the lumbar sacral MRI patient was initially on steroids for questionable spinal cord compression. Patient was on severe unrelenting pain that he received Ativan and oxycodone on route to the MRI machine this morning. Patient's family was at the bedside he was not noticing them. Patient claims no difficulty with urinary incontinence. No recent travel no rash. Patient unfortunately still on the colostomy tube. Patient had a nerve conduction testing electromyography in my office which confirmed the presence of neuropathy patient was supposed to go for an MRI of the lumbosacral spine as an outpatient. Patient describes the pain as sharp mostly from the left knee down difficulty standing for prolonged period of time difficulty walking difficulty with neck turning patient denies any hyperesthes ia. 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 History of Recent Travel: No Home Medications - Allergies Allergies/Adverse Reactions: Allergies Allergy/AdvReac Type Severity Reaction Status Date / Time shellfish derived Allergy Verified 08/16/18 05:16 - Home Medications Home Medications: Ambulatory Orders Losartan/Hydrochlorothiazide [Hyzaar 100-25 Tablet] 1 each PO DAILY #14 tablet 11/18/14 Carvedilol [Coreg -] 12.5 mg PO BID #28 tablet 09/18/16 Acetaminophen [Tylenol .Regular Strength -] 650 mg PO Q4H PRN tablet 10/29/17 Family Disease History - Family Disease History Family Disease History: CA: Sister ( ovarian cancer in her 30s), Other: Father (CVA, HTN, colon polyps ), Mother (HTN, no polyps on colonoscopy) Review of Systems - Review of Systems Constitutional: reports: No Symptoms Eyes: reports: No Symptoms Musculoskeletal: reports: Joint Pain, Joint Swelling Neurological: reports: Incoordination, Numbness, Parasthesia Physical Exam-Neuro Vital Signs: Vital Signs Temperature 98.1 F 08/17/18 10:05 Pulse Rate 96 H 08/17/18 10:05 Respiratory Rate 18 08/17/18 10:05 Blood Pressure 104/69 08/17/18 10:05 O2 Sat by Pulse Oximetry (%) 98 08/16/18 17:23 Constitutional: Yes: Well Nourished Neck: Yes: WNL Labs: CBC, BMP 08/16/18 05:52 08/16/18 05:52 - Neuro Exam Level Of Consciousness: Yes: Oriented to Person, Oriented to Place, Oriented to Time Eyes: Yes: PERRLA Speech: WNL Dominant Hand: Right Cranial Nerves II-XII Intact: Yes Gag: Present DTR's: 1+ Left Bicep, 1+ Right Bicep, 1+ Left Achilles, 1+ Right Achilles Response to light touch: Abnormal Response to pain prick: Abnormal Response to temperature: Abnormal Motor Strength: 1/5: Left Leg (fadumo sign is positive most of the pain is in the left gastrocnemius muscle), 3/5: Left Arm, Right Arm, Right Leg Imaging - Results MRI: Image Reviewed Problem List - Problems (1) Neuropathy Assessment/Plan: Neurological differential diagnoses #1 Rule out DVT. #2 Neuropathy most probably associated with chemotherapy reversible. #3 lumbar radiculopathy L5 left more than right. plan 1. No need for steroids. 2. Physical therapy. 3. DVT prophylaxis, heparin subcutaneous unless contraindicated. 4. Venous Doppler left leg to rule out DVT today. 5. Tramadol when necessary pain. 6. Neurontin 400 mg twice daily. 7. Fall precautions. 8. Blood work for the neuropathy. 9. We'll review the images again with the neuroradiologist regarding the questionable L5 compression Code(s): G62.9 - POLYNEUROPATHY, UNSPECIFIED
[2018-08-17] MEDS ORDERED: traMADol HCL 50 MG TABLET PO PRN (16:06)
--- NOTE | 2018-08-17 18:01 | PN ---
Progress Note, Physician Chief Complaint: Sciatica History of Present Illness: Feels a little better today. Was able to tolerate MRI - Current Medication List Current Medications: Active Medications Acetaminophen (Tylenol -) 650 mg PO Q4H PRN PRN Reason: FEVER Last Admin: 08/17/18 08:17 Dose: 650 mg Carvedilol (Coreg -) 12.5 mg PO BID [facility] Last Admin: 08/17/18 15:43 Dose: Not Given Docusate Sodium (Colace -) 100 mg PO TID [facility] Last Admin: 08/17/18 15:47 Dose: 100 mg Gabapentin (Neurontin -) 300 mg PO BID [facility] HCTZ/Losartan Potassium (Hyzaar -) 2 tab PO DAILY [facility] Last Admin: 08/17/18 15:43 Dose: Not Given Sodium Chloride (Normal Saline -) 1,000 mls @ 75 mls/hr IV ASDIR [facility] Last Admin: 08/17/18 11:00 Dose: 75 mls/hr Oxycodone HCl (Roxicodone -) 10 mg PO Q4H PRN PRN Reason: PAIN LEVEL 6-10 Last Admin: 08/17/18 17:27 Dose: 10 mg Pantoprazole Sodium (Protonix -) 40 mg PO DAILY [facility] Last Admin: 08/17/18 15:47 Dose: 40 mg Tramadol HCl (Ultram -) 50 mg PO Q8H PRN PRN Reason: PAIN 1-5 - Objective Vital Signs: Vital Signs Temperature 97.8 F 08/17/18 16:30 Pulse Rate 90 08/17/18 16:30 Respiratory Rate 18 08/17/18 16:30 Blood Pressure 103/67 08/17/18 16:30 O2 Sat by Pulse Oximetry (%) 98 08/17/18 10:00 Constitutional: Yes: Well Nourished, Calm Eyes: No: Sclera Icterus Cardiovascular: Yes: Regular Rate and Rhythm Respiratory: Yes: Regular, CTA Bilaterally Gastrointestinal: Yes: WNL, Soft Extremities: Yes: Other (still with significant pain in LLE with any movement limiting exam) Labs: CBC, BMP 08/16/18 05:52 08/16/18 05:52 Problem List - Problems (1) Sciatica of left side Assessment/Plan: MRI T/L spine without evidence of metastatic disease in the spine. Shows evidence of degenerative changes with foraminal stenosis. Also with fluid collection within presacral fat that appears to extend to left sciatic foramen. ?cause of pain. Neurology plans to discuss with radiology. Appreciate input Code(s): M54.32 - SCIATICA, LEFT SIDE
[2018-08-17] MEDS: GABAPENTIN 100 MG CAPSULE (FP) PO SCH (22:06)
[2018-08-18] MEDS: SODIUM CHLORIDE 1,000 ML IV SCH ×3 (06:33→20:53)
[2018-08-18] MEDS: DOCUSATE SODIUM 100 MG CAPSULE (FP) PO SCH ×3 (06:33→22:35)
[2018-08-18 07:47] LABS: BASO % 0.2 % (0-2.0); HEMATOCRIT 28.9 % (35.4-49); HEMOGLOBIN 9.2 GM/dL (11.7-16.9); LYMPH % 9.8 % (8-40); MCH 26.4 pg (25.7-33.7); MCHC 31.7 g/dl (32.0-35.9); MEAN CELL VOLUME 83.2 fl (80-96); MEAN PLT VOLUME 8.4 fl (7.5-11.1); MONO % 5.5 % (3.8-10.2); NEUT % 84.5 % (42.8-82.8); PLATELET COUNT 202 K/MM3 (134-434); RBC 3.48 M/mm3 (4.00-5.60); RDW 17.8 % (11.9-15.9); WHITE BLOOD COUNT 13.8 K/mm3 (4.0-10.0)
[2018-08-18] MEDS: oxyCODONE HCL 5 MG TABLET PO PRN ×3 (07:49→19:45)
[2018-08-18] MEDS: ACETAMINOPHEN 325 MG TABLET (FP) PO PRN ×3 (07:50→19:44)
[2018-08-18 09:01] LABS: ALBUMIN 1.5 g/dl (3.4-5.0); ALK PHOS 311 U/L (45-117); ANION GAP 10 MMOL/L (8-16); BILIRUBIN,TOTAL 1.8 mg/dL (0.2-1); BLOOD UREA NITROGEN 62 mg/dL (7-18); CALCIUM 8.1 mg/dL (8.5-10.1); CHLORIDE 107 mmol/L (98-107); CO2 23 mmol/L (21-32); CREATININE 1.3 mg/dL (0.55-1.3); GLUCOSE,RANDOM 133 mg/dL (74-106); POTASSIUM 4.2 mmol/L (3.5-5.1); SGOT/AST 63 U/L (15-37); SGPT/ALT 54 U/L (13-61); SODIUM 139 mmol/L (136-145); TOT PROT 5.4 g/dl (6.4-8.2)
[2018-08-18] MEDS: CARVEDILOL 12.5 MG TABLET (FP) PO SCH ×2 (09:27→22:35)
[2018-08-18] MEDS: GABAPENTIN 100 MG CAPSULE (FP) PO SCH (09:27)
[2018-08-18] MEDS: LOSARTAN 50MG/HCTZ 12.5MG 1 TAB (FP) PO SCH (09:27)
[2018-08-18] MEDS: PANTOPRAZOLE 40 MG TABLET (FP) PO SCH (09:28)
--- NOTE | 2018-08-18 10:43 | PN ---
Progress Note, Physician History of Present Illness: pt seen/ examined chart reviewed awake. complains of pain-- left leg. - Current Medication List Current Medications: Active Medications Acetaminophen (Tylenol -) 650 mg PO Q4H PRN PRN Reason: FEVER Last Admin: 08/18/18 07:50 Dose: 650 mg Carvedilol (Coreg -) 12.5 mg PO BID [facility] Last Admin: 08/18/18 09:27 Dose: Not Given Docusate Sodium (Colace -) 100 mg PO TID [facility] Last Admin: 08/18/18 06:33 Dose: 100 mg Gabapentin (Neurontin -) 300 mg PO BID [facility] Last Admin: 08/18/18 09:27 Dose: 300 mg HCTZ/Losartan Potassium (Hyzaar -) 2 tab PO DAILY [facility] Last Admin: 08/18/18 09:27 Dose: Not Given Sodium Chloride (Normal Saline -) 1,000 mls @ 75 mls/hr IV ASDIR [facility] Last Admin: 08/18/18 06:33 Dose: 75 mls/hr Oxycodone HCl (Roxicodone -) 10 mg PO Q4H PRN PRN Reason: PAIN LEVEL 6-10 Last Admin: 08/18/18 07:49 Dose: 10 mg Pantoprazole Sodium (Protonix -) 40 mg PO DAILY [facility] Last Admin: 08/18/18 09:28 Dose: 40 mg Tramadol HCl (Ultram -) 50 mg PO Q8H PRN PRN Reason: PAIN 1-5 - Objective Vital Signs: Vital Signs Temperature 98.5 F 08/18/18 02:33 Pulse Rate 92 H 08/18/18 02:33 Respiratory Rate 20 08/18/18 02:33 Blood Pressure 106/68 08/18/18 02:33 O2 Sat by Pulse Oximetry (%) 98 08/17/18 10:00 Constitutional: Yes: Anxious Eyes: Yes: Conjunctiva Clear Neck: Yes: Supple Cardiovascular: Yes: Regular Rate and Rhythm Respiratory: Yes: Diminished Gastrointestinal: Yes: Soft Edema: No Neurological: Yes: Alert, Other (left leg weakness-- See neurology detailed note.) Psychiatric: Yes: Alert Labs: CBC, BMP 08/18/18 06:30 08/18/18 06:30 Problem List - Problems (1) Neuropathy Code(s): G62.9 - POLYNEUROPATHY, UNSPECIFIED (2) Sciatica of left side Code(s): M54.32 - SCIATICA, LEFT SIDE (3) Adenocarcinoma Code(s): C80.1 - MALIGNANT (PRIMARY) NEOPLASM, UNSPECIFIED (4) Hypertension Code(s): I10 - ESSENTIAL (PRIMARY) HYPERTENSION (5) Old cerebrovascular accident (CVA) without late effect Code(s): Z86.73 - PRSNL HX OF TIA (TIA), AND CEREB INFRC W/O RESID DEFICITS Assessment/Plan Pain control Physical therapy dvt ruled out dvt prophylaxis will follow.
--- NOTE | 2018-08-18 14:50 | PN ---
Progress Note (short form) - Note Progress Note: Radiation Oncology Pt seen and evaluated, chart/films reviewed, consult dictated. 48 yo with hx of stage IV colon cancer s/p colostomy and FOLFOX/Avastin (Oxali on hold recently 2/2 neuropathy) with acute LLE radiculopathy from presacral mass encroaching the sacral foramen. MRI T/L spine neg for mets, has severe discogenic disease. Prior CT CAP shows progressive lung mets, liver mets, a large (6-cm) poorly defined perirectal mass extending through sciatic notch and into piriformis muscle as well as thickened rectum. Proceed with chemotx. He is a candidate for palliative RT to relieve/reduce further neurologic impingement. Would recommend MRI pelvis to evaluate full extent of pelvic disease so that RT field can be limited to reduce toxicity. Cont pain mgt. Discussed with Dr. Presley.
--- NOTE | 2018-08-18 16:41 | CONS ---
DATE OF CONSULTATION: 08/18/2018 REFERRING PHYSICIAN: Sakina Elias MD REASON FOR CONSULTATION: Left leg pain in the setting of metastatic colon cancer. HISTORY OF PRESENT ILLNESS: The patient is a 48-year-old gentleman with a history of stage IV colon cancer with metastases to the liver and lung. He is a poor historian and relates that he had initially discussed radiation therapy when he was diagnosed 2 years ago, although he is not sure of the exact date of his diagnosis. The workup at that time eventually disclosed advanced disease and he proceeded with chemotherapy. He had colostomy as well. He is followed with Dr. Elias for FOLFOX with the oxaliplatin on hold recently secondary to neuropathy. He has been evaluated by Neurology. He has had a history of chronic low back pain but presented with new onset of pain and numbness in the left thigh radiating to the left calf region. He denies shortness of breath, chest pain or leg swelling. The pain was so severe that he was unable to ambulate and needed a cane to get out of the shower. He denies bowel or bladder changes, including incontinence. He has no weakness or numbness in the upper extremities or right leg. CT and MRI scans of the thoracic and lumbar spine disclosed severe discogenic disease with impingement but no metastatic disease. Lower extremity duplex ultrasound ruled out DVT. Of note, a prior CT of the chest, abdomen and pelvis earlier this month disclosed progressive lung nodules consistent with metastatic disease and multiple hypodense liver masses consistent with metastatic disease with the largest mass measuring 4 x 4 cm. There is a poorly defined soft tissue mass in the left perirectal space posterolateral to the rectum extending through the sciatic notch involving the left piriformis muscle consistent with recurrent malignancy. The rectum is somewhat thickened. There are no definite pelvic or retroperitoneal lymphadenopathy. We are asked to evaluate for radiation therapy. PAST MEDICAL HISTORY: The patient denies a history of radiation therapy as his disease was found to be metastatic. He had a TIA/CVA in the past. He also has a history of hypertension and hyperlipidemia. He had a colostomy as mentioned. ALLERGIES: No known drug allergies. CURRENT MEDICATIONS: Hyzaar, Neurontin, Colace, Ultram p.r.n. and oxycodone p.r.n., Protonix. FAMILY HISTORY: His sister had ovarian cancer and in her 30s. SOCIAL HISTORY: He his . He has 5 children. 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 He denies tobacco or alcohol use. REVIEW OF SYSTEMS: No headaches, dizziness, blurry vision, fevers, chills, weight loss or change in appetite. PHYSICAL EXAMINATION: General: Well-appearing male appearing his chronological age in no acute distress, lying in the hospital bed. Vital Signs: Temperature 98.1, blood pressure 96/68, pulse 90, respiratory rate 20, SaO2 is 98% on room air. HEENT: Normocephalic, atraumatic. Moist mucous membranes. Clear oral cavity without thrush or mucositis. Neck: No cervical adenopathy. Chest: Lungs are clear bilaterally without wheezes, rales or rhonchi. No axillary adenopathy. Right chest wall Mediport in place. Cardiovascular: Regular.Abdomen: Well-healed surgical incision. Functioning colostomy with brown liquid fecal matter in the bag. Nontender, nondistended. No palpable abdominal or pelvic mass. Extremities: No peripheral edema. Mild tenderness elicited on palpation of the left calf. No cords appreciated. Musculoskeletal: No spine or paraspinal tenderness or mass. Neurologic: Alert and oriented x3. Cranial nerves 2-12 are grossly intact. Sensation to light touch is mildly decreased in the left thigh and calf region. Intact in the right lower extremity. Toes are mute bilaterally. Motor exam shows no pronator drift, 4/5 in the upper extremities bilaterally and right lower extremity, 1/5 in the left hip flexion and extension and 3-4/5 dorsiflexion and plantarflexion. RADIOLOGIC DATA: CT of the lumbar spine, MRI of the thoracolumbar spine, CT of the chest, abdomen and pelvis: See HPI. LABORATORY DATA: WBC 13.8, hemoglobin 9.2, platelet count 202,000. Electrolytes within normal limits. BUN 62, creatinine 1.3. Calcium 8.1. AST 63, normal ALT 64, elevated alkaline phosphatase 311. Albumin 1.5. PATHOLOGIC DATA: October 14, 2017: Peritoneum pelvic implant biopsy positive for adenocarcinoma. Liver biopsy positive for moderately differentiated invasive adenocarcinoma. IMPRESSION: Stage IV rectal adenocarcinoma with biopsy-proven liver metastases and lung metastases as well as pelvic recurrence that is causing left lower extremity radiculopathy associated with impingement of the sacral plexus by a large perirectal mass. I reviewed the radiologic studies. There is a large (approximately 6 cm) poorly defined perirectal mass extending through the sciatic notch and involving the piriformis muscle. He is a candidate for palliative radiation therapy to relieve and reduce further neurologic impingement by the mass. I would recommend an MRI of the pelvis to fully evaluate the extent of disease so that the radiation field can be limited to reduce toxicity. He will proceed with chemotherapy as per Dr. Elias, with whom I discussed the plan for radiation to follow his 1st dose. He will need continued pain management until he can be safely discharged. We will proceed with hospital approval for transportation. PLAN: I will plan at least 3000 cGy due to the size of the mass, but we shall use conformal techniques to limit exposure and toxicity of the bowel and normal tissues. Thank you for asking me to participate in the care of this patient. RADHA LEE M.D. [id number] MTDD
--- NOTE | 2018-08-18 19:48 | PN ---
Progress Note (short form) - Note Progress Note: PAtient seen and examined Left leg severe pain AFVSS Cor: RSR, No murmurs, No gallops Lungs: Clear to P&A Abd: Soft, Normal bowel sounds, No organomegaly Ext:No significant edema LAbs/Meds reviewed A/P 48 y/o with metastatic rectal cancer BRAF mutated/KRAS wild type with liver/ lung mets, s/p surgery, ON FOLFOX/avastin, recent oxaliplatin neuropathy and had been on 5-FU/leucovorin/avastin, recent scans on 08/07 showing progressive disease, comes in with left leg severe pain of 1 week duration. MRI T/L spine show no cord compression Recurrent 6 cm pelvic mass encroaching sciatic foramen Discussed with rad-onc will plan on switching to irinotecan based regimen will consider palliative RT to presacral mass check cultures d/c neurontin discussed in detail with patient and his mother, neurology and rad-onc teams
[2018-08-18] MEDS ORDERED: oxyCODONE HCL 5 MG TABLET PO PRN (19:51)
[2018-08-18] MEDS: PORTA CATH FLUSH 10 ML IVPUSH PRN (22:48)
[2018-08-19 06:00] LABS: URINE APPEARANCE CLEAR; URINE BILIRUBIN NEGATIVE (<2.0 mg/dL); URINE COLOR DKYELLOW; URINE GLUCOSE (UA) NEGATIVE (NEGATIVE); URINE KETONE NEGATIVE (NEGATIVE); URINE LEUK ESTERASE NEGATIVE (NEGATIVE); URINE NITRITE NEGATIVE (NEGATIVE); URINE PROTEIN 1+ (NEGATIVE); URINE UROBILINOGEN 4.0 E.U/dl mg/dL (0.2-1.0)
[2018-08-19] MEDS: DOCUSATE SODIUM 100 MG CAPSULE (FP) PO SCH ×3 (06:17→21:56)
[2018-08-19] MEDS: PORTA CATH FLUSH 10 ML IVPUSH PRN (06:18)
[2018-08-19 07:06] LABS: BASO % 0.1 % (0-2.0); EOS % 0.1 % (0-4.5); HEMATOCRIT 27.9 % (35.4-49); HEMOGLOBIN 8.8 GM/dL (11.7-16.9); MCH 26.5 pg (25.7-33.7); MCHC 31.6 g/dl (32.0-35.9); MEAN PLT VOLUME 8.2 fl (7.5-11.1); MONO % 5.4 % (3.8-10.2); NEUT % 82.4 % (42.8-82.8); PLATELET COUNT 180 K/MM3 (134-434); RBC 3.33 M/mm3 (4.00-5.60); RDW 18.3 % (11.9-15.9); WHITE BLOOD COUNT 13.4 K/mm3 (4.0-10.0)
[2018-08-19 07:27] LABS: ALBUMIN 1.4 g/dl (3.4-5.0); ALK PHOS 317 U/L (45-117); ANION GAP 12 MMOL/L (8-16); BILIRUBIN,TOTAL 1.8 mg/dL (0.2-1); BLOOD UREA NITROGEN 52 mg/dL (7-18); CALCIUM 7.9 mg/dL (8.5-10.1); CHLORIDE 112 mmol/L (98-107); CO2 23 mmol/L (21-32); CREATININE 1.4 mg/dL (0.55-1.3); GLUCOSE,RANDOM 95 mg/dL (74-106); POTASSIUM 4.2 mmol/L (3.5-5.1); SGOT/AST 57 U/L (15-37); SGPT/ALT 51 U/L (13-61); SODIUM 147 mmol/L (136-145); TOT PROT 5.1 g/dl (6.4-8.2)
[2018-08-19] MEDS: MORPHINE SULFATE 2 MG/ML VIAL IVPUSH PRN ×3 (08:22→19:50)
[2018-08-19] MEDS: PANTOPRAZOLE 40 MG TABLET (FP) PO SCH (09:08)
[2018-08-19] MEDS: HEPARIN NA (PORCINE) 5,000 UNITS/ML 1ML VIAL SQ SCH ×2 (09:08→21:56)
[2018-08-19] MEDS: CARVEDILOL 12.5 MG TABLET (FP) PO SCH ×2 (09:08→21:56)
[2018-08-19] MEDS: LOSARTAN 50MG/HCTZ 12.5MG 1 TAB (FP) PO SCH (09:10)
[2018-08-19] MEDS ORDERED: PT OWN MED DRAWER 7, Y5N ONE (09:10)
[2018-08-19] MEDS: POLYETHYLENE GLYCOL 3350 119 GM BTL PO SCH (09:12)
[2018-08-19] MEDS ORDERED: ACETAMINOPHEN 1000 MG/100 ML VIAL (NON FORMULARY) IVPB ONE (12:30)
[2018-08-19] MEDS ORDERED: VANCOMYCIN 1 GRAM (PRE-DOCKED) 1,000 MG/250 ML BAG IVPB ONE ×2 (12:30→23:46)
[2018-08-19] MEDS: SODIUM CHLORIDE 1,000 ML IV SCH ×2 (12:32→15:41)
--- NOTE | 2018-08-19 12:44 | PN ---
Progress Note (short form) - Note Progress Note: confused today has high temp chills+ shivering No sob at bedside she tells me that pt did not tell the family about his disease, he goes to outpt chemo alone- she does not know the extent of the disease Vital Signs - 24 hr 08/18/18 08/18/18 08/18/18 14:22 17:14 19:41 Temperature 98.4 F 98.8 F 99.7 F H Pulse Rate 83 93 H 96 H Respiratory 18 20 20 Rate Blood Pressure 106/65 111/82 112/74 O2 Sat by Pulse Oximetry (%) 08/18/18 08/18/18 08/19/18 21:00 22:00 01:18 Temperature 98.5 F 98.8 F Pulse Rate 97 H 95 H Respiratory 18 18 Rate Blood Pressure 107/65 102/66 O2 Sat by Pulse 93 L Oximetry (%) 08/19/18 08/19/18 08/19/18 06:06 09:00 09:31 Temperature 98.2 F 98 F Pulse Rate 95 H 105 H Respiratory 18 18 18 Rate Blood Pressure 109/73 124/80 O2 Sat by Pulse 93 L Oximetry (%) 08/19/18 12:15 Temperature 102.8 F H Pulse Rate 102 H Respiratory 18 Rate Blood Pressure 121/86 O2 Sat by Pulse Oximetry (%) Current Medications Generic Name Dose Route Start Last Admin Trade Name Freq PRN Reason Stop Dose Admin Acetaminophen 650 mg 08/16/18 15:27 08/18/18 19:44 Tylenol - PO 650 mg Q4H PRN Administration FEVER Carvedilol 12.5 mg 08/16/18 22:00 08/19/18 09:08 Coreg - PO 12.5 mg BID AJ Administration Docusate Sodium 100 mg 08/16/18 22:00 08/19/18 06:17 Colace - PO 100 mg TID AJ Administration HCTZ/Losartan Potassium 2 tab 08/17/18 10:00 08/19/18 09:10 Hyzaar - PO 2 tab DAILY AJ Administration Heparin Sodium (Porcine) 5,000 unit 08/19/18 10:00 08/19/18 09:08 Heparin - SQ 5,000 unit BID AJ Administration IV Flush 10 ml 08/18/18 22:39 08/19/18 06:18 Vu-Cath Flush IVPUSH 10 ml PRN PRN Administration protocol, patency maintenance Sodium Chloride 1,000 mls @ 75 mls/hr 08/17/18 10:15 08/19/18 12:32 Normal Saline - IV 75 mls/hr ASDIR AJ Administration Vancomycin HCl 1,000 mg in 250 mls @ 166.667 mls/hr 08/19/18 12:30 Vancomycin (Pre-Docked) IVPB 08/19/18 13:59 ONCE ONE Protocol Morphine Sulfate 2 mg 08/19/18 08:09 08/19/18 08:22 Morphine Sulfate IVPUSH 2 mg Q4H PRN Administration PAIN LEVEL 6-10 Pantoprazole Sodium 40 mg 08/17/18 10:00 08/19/18 09:08 Protonix - PO 40 mg DAILY AJ Administration Polyethylene Glycol 17 gm 08/19/18 10:00 08/19/18 09:12 Miralax (For Daily Use) - PO 17 grams DAILY AJ Administration Laboratory Results - last 24 hr 08/19/18 08/19/18 08/19/18 05:00 06:22 06:22 WBC 13.4 H RBC 3.33 L Hgb 8.8 L Hct 27.9 L MCV 84.0 MCH 26.5 MCHC 31.6 L RDW 18.3 H Plt Count 180 MPV 8.2 Absolute Neuts (auto) 11.0 H Neutrophils % 82.4 Lymphocytes % 12.0 D Monocytes % 5.4 Eosinophils % 0.1 D Basophils % 0.1 Nucleated RBC % 0 Sodium 147 H Potassium 4.2 Chloride 112 H Carbon Dioxide 23 Anion Gap 12 BUN 52 H Creatinine 1.4 H Creat Clearance w eGFR 53.86 Random Glucose 95 Calcium 7.9 L Total Bilirubin 1.8 H AST 57 H ALT 51 Alkaline Phosphatase 317 H Total Protein 5.1 L Albumin 1.4 L Urine Color Dkyellow Urine Appearance Clear Urine pH 5.0 Ur Specific [place] 1.012 Urine Protein 1+ H Urine Glucose (UA) Negative Urine Ketones Negative Urine Blood 1+ H Urine Nitrite Negative Urine Bilirubin Negative Urine Urobilinogen 4.0 e.u/dl Ur Leukocyte Esterase Negative Urine WBC (Auto) 1 Urine RBC (Auto) 1 S1 S2 RRR Anorexic Lungs decreased Abd - soft, NT, Colostomy functioning Ext- no edema PLAN Sepsis vs tumor fever check blood cultures urine cultures Give one dose of vanco ID eval iv fluids pain control ct head ordered pelvic MRI pending Problem List - Problems (1) Adenocarcinoma Code(s): C80.1 - MALIGNANT (PRIMARY) NEOPLASM, UNSPECIFIED (2) Anemia due to blood loss, chronic Code(s): D50.0 - IRON DEFICIENCY ANEMIA SECONDARY TO BLOOD LOSS (CHRONIC) (3) Metastatic colon cancer to liver Code(s): C18.9 - MALIGNANT NEOPLASM OF COLON, UNSPECIFIED; C78.7 - SECONDARY MALIG NEOPLASM OF LIVER AND INTRAHEPATIC BILE DUCT (4) Fever Code(s): R50.9 - FEVER, UNSPECIFIED Qualifiers: Encounter type: initial encounter
[2018-08-19 12:45] LABS: ACANTHOCYTES 0; ANISOCYTOSIS 0; HELMET CELLS 0; HOWELL-JOLLY BODIES 0; MACROCYTOSIS 0; OVALOCYTE 0; PLATELET ESTIMATE NORMAL; ROULEAU 0; SICKELED CELLS 0; TARGET CELLS 0; TEAR DROP CELLS 0; TOXIC GRANULATION 0
[2018-08-19 15:36] LABS: URINE APPEARANCE CLEAR; URINE BILIRUBIN NEGATIVE (<2.0 mg/dL); URINE COLOR DKYELLOW; URINE GLUCOSE (UA) NEGATIVE (NEGATIVE); URINE KETONE NEGATIVE (NEGATIVE); URINE LEUK ESTERASE NEGATIVE (NEGATIVE); URINE NITRITE NEGATIVE (NEGATIVE); URINE PROTEIN 2+ (NEGATIVE); URINE UROBILINOGEN 4.0 E.U/dl mg/dL (0.2-1.0)
[2018-08-19 15:44] LABS: URINE MUCUS RARE
--- NOTE | 2018-08-19 16:15 | PN ---
Progress Note (short form) - Note Progress Note: Patient seen and examined by me at bedside. Patient with fever and chills in the last 24 hours. More confused, as per staff. Pelvic MRI pending. Vital Signs Temperature 102.8 F H 08/19/18 12:15 Pulse Rate 102 H 08/19/18 12:15 Respiratory Rate 18 08/19/18 12:15 Blood Pressure 121/86 08/19/18 12:15 O2 Sat by Pulse Oximetry (%) 93 L 08/19/18 09:00 GENERAL: Awake, confused and drowsy, Anorexic, no acute distress MOUTH: Dry mucous membranes LUNGS: Diminished breath sounds bilaterally CARDIO: RRR, Normal S1 and S2 ABDOMEN: Soft, Nontender, nondistended, colostomy bag in place EXTREMITIES: Peripheral pitting edema bilaterally CBC, BMP 08/19/18 06:22 08/19/18 06:22 Laboratory Tests 08/19/18 06:22 Calcium 7.9 L Total Bilirubin 1.8 H AST 57 H ALT 51 Alkaline Phosphatase 317 H Total Protein 5.1 L Albumin 1.4 L Patient is a 48 year old male with metastatic rectal cancer with mets to the liver and lungs on 5-FU/Leucovorin who presented with severe left leg pain for > 1 weeks. Patient found to have sepsis and admitted for further monitoring and management. Problem List: Metastatic Rectal Cancer with perirectal mass extending through sciatic notch and into piriformis muscle. HTN PLAN: -MRI of T/L revealed no cord compression -Plans to twitch to irinotecan based regimen -Seen by radiation oncology and is a candidate for palliative radiation therapy to relieve and reduce further neurological impingement. -Continue Chemo therapy treatment with 5-FU/Leucovorin -Pelvic MRI pending to evaluate extent of pelvic disease for RT -Continue main management -Cultures pending
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
--- NOTE | 2018-08-19 18:00 | PN ---
Progress Note (short form) - Note Progress Note: ID Consult dictated Fever/ chills R/O sepsis Metastatic rectal ca Await c/s Empiric zosyn
[2018-08-19] MEDS ORDERED: DEXTROSE 5%-WATER - 50 ML IVPB ONE (19:33)
[2018-08-19] MEDS ORDERED: PIPERACILLIN/TAZOBACTAM 3.375 GM VIAL IVPB ONE (19:33)
[2018-08-19] MEDS: PIPERACILLIN/TAZOB 3.375 GM 3.375 GM in DEXTROSE 5%-WATER - 50 ML IVPB SCH (19:35)
--- NOTE | 2018-08-19 19:52 | PN ---
Progress Note (short form) - Note Progress Note: Patient seen and examined Confused , agitated, febrile Seen by neurology To follow recommendations - d/c neurontin Last Vital Signs Temp Pulse Resp BP Pulse Ox 99.8 F H 99 H 18 108/70 93 L 08/19/18 18:00 08/19/18 18:00 08/19/18 18:00 08/19/18 18:00 08/19/18 09:00 HEENT: EZEQUIEL, EOM Intact Oropharynx: No thrush, No mucositis Cor: RSR, No murmurs, No gallops Lungs: Clear to P&A Abd: Soft, Normal bowel sounds, No organomegaly, colostomy Ext:No significant edema Skin: No rashes, Integument intact CBC, BMP 08/19/18 06:22 08/19/18 06:22 Abnormal Lab Results 08/19/18 08/19/18 08/19/18 05:00 06:22 06:22 WBC 13.4 H RBC 3.33 L Hgb 8.8 L Hct 27.9 L MCHC 31.6 L RDW 18.3 H Absolute Neuts (auto) 11.0 H Sodium 147 H Chloride 112 H BUN 52 H Creatinine 1.4 H Calcium 7.9 L Total Bilirubin 1.8 H AST 57 H Alkaline Phosphatase 317 H Total Protein 5.1 L Albumin 1.4 L Urine Protein 1+ H Urine Blood 1+ H 08/19/18 15:00 WBC RBC Hgb Hct MCHC RDW Absolute Neuts (auto) Sodium Chloride BUN Creatinine Calcium Total Bilirubin AST Alkaline Phosphatase Total Protein Albumin Urine Protein 2+ H Urine Blood 1+ H Current Medications Generic Name Dose Route Start Last Admin Trade Name Freq PRN Reason Stop Dose Admin Acetaminophen 650 mg 08/16/18 15:27 08/18/18 19:44 Tylenol - PO 650 mg Q4H PRN Administration FEVER Atropine Sulfate 0.25 mg 08/20/18 10:00 Atropine Injection - IVPUSH 08/20/18 10:01 ONCE ONE Carvedilol 12.5 mg 08/16/18 22:00 08/19/18 09:08 Coreg - PO 12.5 mg BID AJ Administration Docusate Sodium 100 mg 08/16/18 22:00 08/19/18 15:41 Colace - PO Not Given TID AJ HCTZ/Losartan Potassium 2 tab 08/17/18 10:00 08/19/18 09:10 Hyzaar - PO 2 tab DAILY AJ Administration Heparin Sodium (Porcine) 5,000 unit 08/19/18 10:00 08/19/18 09:08 Heparin - SQ 5,000 unit BID AJ Administration IV Flush 10 ml 08/18/18 22:39 08/19/18 06:18 Vu-Cath Flush IVPUSH 10 ml PRN PRN Administration protocol, patency maintenance Sodium Chloride 1,000 mls @ 100 mls/hr 08/19/18 12:50 08/19/18 15:41 Normal Saline - IV Not Given ASDIR AJ Dexamethasone Sodium Phosphate 105.2 mls @ 210.4 mls/hr 08/20/18 10:00 12 mg/ Ondansetron HCl 8 mg/ IVPB 08/20/18 10:29 Sodium Chloride ONCE ONE Irinotecan HCl 218 mg/ 510.9 mls @ 340.6 mls/hr 08/20/18 10:30 Dextrose IVPB 08/20/18 11:59 ONCE ONE Piperacillin Sod/Tazobactam 50 mls @ 100 mls/hr 08/19/18 18:00 08/19/18 19:35 Sod 3.375 gm/ Dextrose IVPB 100 mls/hr Q8H-IV AJ Administration Protocol Morphine Sulfate 2 mg 08/19/18 08:09 08/19/18 14:44 Morphine Sulfate IVPUSH 2 mg Q4H PRN Administration PAIN LEVEL 6-10 Pantoprazole Sodium 40 mg 08/17/18 10:00 08/19/18 09:08 Protonix - PO 40 mg DAILY AJ Administration Polyethylene Glycol 17 gm 08/19/18 10:00 08/19/18 09:12 Miralax (For Daily Use) - PO 17 grams DAILY AJ Administration Impression: Metastatic rectal ca - progressive in nature To change to irinotecan Pelvic Mass- for RT Confusion, agitation Pain control- morphine 2 mg q 4 h prn Plan : holding on chemotherapy for tomorrow.
[2018-08-19] MEDS: ACETAMINOPHEN 325 MG TABLET (FP) PO PRN (21:56)
[2018-08-20] MEDS: MORPHINE SULFATE 2 MG/ML VIAL IVPUSH PRN ×5 (00:35→22:32)
[2018-08-20] MEDS ORDERED: DEXTROSE 5%-WATER - 50 ML IVPB ONE ×3 (03:00→17:43)
[2018-08-20] MEDS ORDERED: PIPERACILLIN/TAZOBACTAM 3.375 GM VIAL IVPB ONE ×3 (03:00→17:42)
[2018-08-20] MEDS: SODIUM CHLORIDE 1,000 ML IV SCH ×2 (03:01→15:38)
[2018-08-20] MEDS: PIPERACILLIN/TAZOB 3.375 GM 3.375 GM in DEXTROSE 5%-WATER - 50 ML IVPB SCH ×3 (03:01→17:49)
[2018-08-20] MEDS: DOCUSATE SODIUM 100 MG CAPSULE (FP) PO SCH ×3 (06:38→22:31)
[2018-08-20] MEDS: PANTOPRAZOLE 40 MG TABLET (FP) PO SCH (09:23)
[2018-08-20] MEDS: CARVEDILOL 12.5 MG TABLET (FP) PO SCH ×2 (09:23→22:31)
[2018-08-20] MEDS: HEPARIN NA (PORCINE) 5,000 UNITS/ML 1ML VIAL SQ SCH ×2 (09:24→22:31)
[2018-08-20] MEDS ORDERED: PT OWN MED DRAWER 7, Y5N ONE (09:25)
[2018-08-20] MEDS: LOSARTAN 50MG/HCTZ 12.5MG 1 TAB (FP) PO SCH (09:26)
[2018-08-20] MEDS: POLYETHYLENE GLYCOL 3350 119 GM BTL PO SCH (09:26)
[2018-08-20] MEDS ORDERED: ATROPINE SO4 0.4 MG/1 ML VIAL IVPUSH ONE (10:00)
[2018-08-20] MEDS ORDERED: DEXAMETHASONE INJECTION 12 MG, ONDANSETRON INJECTION 8 MG in SODIUM CHLORIDE 100 ML IVPB ONE (10:00)
[2018-08-20] MEDS ORDERED: DEXTROSE 5% IVPB ONE (10:30)
[2018-08-20] MEDS ORDERED: WATER IVPB ONE (10:30)
[2018-08-20] MEDS ORDERED: IRINOTECAN HCL IVPB ONE (10:30)
[2018-08-20 11:24] LABS: BASO % 0.1 % (0-2.0); HEMATOCRIT 29.2 % (35.4-49); HEMOGLOBIN 9.3 GM/dL (11.7-16.9); LYMPH % 14.2 % (8-40); MCH 26.2 pg (25.7-33.7); MCHC 31.9 g/dl (32.0-35.9); MEAN CELL VOLUME 82.3 fl (80-96); MEAN PLT VOLUME 7.9 fl (7.5-11.1); MONO % 3.4 % (3.8-10.2); NEUT % 82.3 % (42.8-82.8); PLATELET COUNT 148 K/MM3 (134-434); RBC 3.55 M/mm3 (4.00-5.60); RDW 18.7 % (11.9-15.9); WHITE BLOOD COUNT 13.1 K/mm3 (4.0-10.0)
[2018-08-20] MEDS ORDERED: FENTANYL PATCH WASTE TD PRN (12:08)
[2018-08-20] MEDS ORDERED: fentaNYL 12mcg/hr PATCH.TD72 TD SCH (12:15)
[2018-08-20 12:28] LABS: ALBUMIN 1.2 g/dl (3.4-5.0); ALK PHOS 273 U/L (45-117); ANION GAP 11 MMOL/L (8-16); BILIRUBIN,TOTAL 2.4 mg/dL (0.2-1); BLOOD UREA NITROGEN 45 mg/dL (7-18); CALCIUM 7.5 mg/dL (8.5-10.1); CHLORIDE 112 mmol/L (98-107); CO2 21 mmol/L (21-32); CREATININE 1.4 mg/dL (0.55-1.3); GLUCOSE,RANDOM 160 mg/dL (74-106); POTASSIUM 3.9 mmol/L (3.5-5.1); SGOT/AST 37 U/L (15-37); SGPT/ALT 37 U/L (13-61); SODIUM 144 mmol/L (136-145); TOT PROT 4.7 g/dl (6.4-8.2)
[2018-08-20] MEDS ORDERED: MORPHINE SULFATE 2 MG/ML VIAL IVPUSH ONE (13:57)
--- NOTE | 2018-08-20 16:05 | PN ---
Progress Note (short form) - Note Progress Note: confused low grade temp Vital Signs - 24 hr 08/19/18 08/19/18 08/19/18 18:00 21:00 22:00 Temperature 99.8 F H 100 F H Pulse Rate 99 H 111 H Respiratory 18 18 20 Rate Blood Pressure 108/70 130/76 O2 Sat by Pulse 95 Oximetry (%) 08/20/18 08/20/18 08/20/18 02:08 06:03 10:00 Temperature 97.3 F L 98.1 F 98.3 F Pulse Rate 101 H 99 H 108 H Respiratory 18 18 18 Rate Blood Pressure 100/71 123/76 118/86 O2 Sat by Pulse Oximetry (%) Current Medications Generic Name Dose Route Start Last Admin Trade Name Freq PRN Reason Stop Dose Admin Acetaminophen 650 mg 08/16/18 15:27 08/19/18 21:56 Tylenol - PO 650 mg Q4H PRN Administration FEVER Carvedilol 12.5 mg 08/16/18 22:00 08/20/18 09:23 Coreg - PO 12.5 mg BID AJ Administration Docusate Sodium 100 mg 08/16/18 22:00 08/20/18 13:58 Colace - PO Not Given TID AJ Fentanyl 1 patch 08/20/18 12:15 08/20/18 13:35 Duragesic 12mcg Patch - TD 08/27/18 12:09 1 patch Q72H AJ Administration HCTZ/Losartan Potassium 2 tab 08/17/18 10:00 08/20/18 09:26 Hyzaar - PO 2 tab DAILY AJ Administration Heparin Sodium (Porcine) 5,000 unit 08/19/18 10:00 08/20/18 09:24 Heparin - SQ 5,000 unit BID AJ Administration IV Flush 10 ml 08/18/18 22:39 08/19/18 06:18 Vu-Cath Flush IVPUSH 10 ml PRN PRN Administration protocol, patency maintenance Sodium Chloride 1,000 mls @ 100 mls/hr 08/19/18 12:50 08/20/18 15:38 Normal Saline - IV 100 mls/hr ASDIR AJ Administration Piperacillin Sod/Tazobactam 50 mls @ 100 mls/hr 08/19/18 18:00 08/20/18 09:23 Sod 3.375 gm/ Dextrose IVPB 100 mls/hr Q8H-IV AJ Administration Protocol Miscellaneous 1 each 08/20/18 12:08 Duragesic Patch Waste TD PRN PRN PAIN Morphine Sulfate 2 mg 08/19/18 08:09 08/20/18 11:43 Morphine Sulfate IVPUSH 2 mg Q4H PRN Administration PAIN LEVEL 6-10 Pantoprazole Sodium 40 mg 08/17/18 10:00 08/20/18 09:23 Protonix - PO 40 mg DAILY AJ Administration Polyethylene Glycol 17 gm 08/19/18 10:00 08/20/18 09:26 Miralax (For Daily Use) - PO 17 grams DAILY AJ Administration Laboratory Results - last 24 hr 08/20/18 08/20/18 08/20/18 10:53 10:53 11:50 WBC 13.1 H RBC 3.55 L Hgb 9.3 L Hct 29.2 L MCV 82.3 MCH 26.2 MCHC 31.9 L RDW 18.7 H Plt Count 148 MPV 7.9 Absolute Neuts (auto) 10.7 H Total Counted 100 Neutrophils % 82.3 Neutrophils % (Manual) 74.0 Band Neutrophils % 20.0 Lymphocytes % 14.2 Lymphocytes % (Manual) 5.0 L D Monocytes % 3.4 L Monocytes % (Manual) 1 L D Eosinophils % 0.0 D Basophils % 0.1 Nucleated RBC % 0 Sodium 144 Potassium 3.9 Chloride 112 H Carbon Dioxide 21 Anion Gap 11 BUN 45 H Creatinine 1.4 H Creat Clearance w eGFR 53.86 Random Glucose 160 H Calcium 7.5 L Total Bilirubin 2.4 H AST 37 ALT 37 Alkaline Phosphatase 273 H Ammonia < 10.00 L Total Protein 4.7 L Albumin 1.2 L S1 S2 RRR Anorexic Lungs decreased Abd - soft, NT, Colostomy functioning Ext- no edema PLAN Sepsis vs tumor fever- blood cultures negative iv antibiotics empiric ID eval noted Ammonia level low iv fluids pain control possibly tumor related undergoing RT Problem List - Problems (1) Intractable back pain Code(s): M54.9 - DORSALGIA, UNSPECIFIED (2) Metastatic colon cancer to liver Code(s): C18.9 - MALIGNANT NEOPLASM OF COLON, UNSPECIFIED; C78.7 - SECONDARY MALIG NEOPLASM OF LIVER AND INTRAHEPATIC BILE DUCT (3) Neuropathy Code(s): G62.9 - POLYNEUROPATHY, UNSPECIFIED (4) Sciatica of left side Code(s): M54.32 - SCIATICA, LEFT SIDE (5) Hypertension Code(s): I10 - ESSENTIAL (PRIMARY) HYPERTENSION
--- NOTE | 2018-08-20 16:39 | PN ---
Progress Note (short form) - Note Progress Note: Radiation Oncology Pt was CT simulated for RT - planning in progress. Currently confused, sepsis work up ongoing. Cont pain mgt and neurologic monitoring. Will plan to proceed with palliative RT possibly next week pending medical status.
--- NOTE | 2018-08-20 17:01 | PN ---
Progress Note (short form) - Note Progress Note: Patient seen and examined Complains of pain Last Vital Signs Temp Pulse Resp BP Pulse Ox 98.3 F 108 H 18 118/86 96 08/20/18 10:00 08/20/18 10:00 08/20/18 10:00 08/20/18 10:00 08/20/18 09:00 Remains somewhat confused and lethargic Cor: RSR, No murmurs, No gallops Lungs: diminished breath sounds bilaterally Abd: Soft, Normal bowel sounds, No organomegaly Ext:No significant edema Skin: No rashes, Integument intact CBC, BMP 08/20/18 10:53 08/20/18 10:53 Current Medications Generic Name Dose Route Start Last Admin Trade Name Freq PRN Reason Stop Dose Admin Acetaminophen 650 mg 08/16/18 15:27 08/19/18 21:56 Tylenol - PO 650 mg Q4H PRN Administration FEVER Carvedilol 12.5 mg 08/16/18 22:00 08/20/18 09:23 Coreg - PO 12.5 mg BID AJ Administration Docusate Sodium 100 mg 08/16/18 22:00 08/20/18 13:58 Colace - PO Not Given TID AJ Fentanyl 1 patch 08/20/18 12:15 08/20/18 13:35 Duragesic 12mcg Patch - TD 08/27/18 12:09 1 patch Q72H AJ Administration HCTZ/Losartan Potassium 2 tab 08/17/18 10:00 08/20/18 09:26 Hyzaar - PO 2 tab DAILY AJ Administration Heparin Sodium (Porcine) 5,000 unit 08/19/18 10:00 08/20/18 09:24 Heparin - SQ 5,000 unit BID AJ Administration IV Flush 10 ml 08/18/18 22:39 08/19/18 06:18 Vu-Cath Flush IVPUSH 10 ml PRN PRN Administration protocol, patency maintenance Sodium Chloride 1,000 mls @ 100 mls/hr 08/19/18 12:50 08/20/18 15:38 Normal Saline - IV 100 mls/hr ASDIR AJ Administration Piperacillin Sod/Tazobactam 50 mls @ 100 mls/hr 08/19/18 18:00 08/20/18 09:23 Sod 3.375 gm/ Dextrose IVPB 100 mls/hr Q8H-IV AJ Administration Protocol Miscellaneous 1 each 08/20/18 12:08 Duragesic Patch Waste TD PRN PRN PAIN Morphine Sulfate 2 mg 08/19/18 08:09 08/20/18 11:43 Morphine Sulfate IVPUSH 2 mg Q4H PRN Administration PAIN LEVEL 6-10 Impression: Recurrent colon Impression: I Pantoprazole Sodium 40 mg 08/17/18 10:00 08/20/18 09:23 Protonix - PO 40 mg DAILY AJ Administration Polyethylene Glycol 17 gm 08/19/18 10:00 08/20/18 09:26 Miralax (For Daily Use) - PO 17 grams DAILY AJ Administration Impression Colon ca - liver mets/sacral mass Pain management Sepsis Patient not a candidate for chemotherapy . Will continue antibiotics Increase morphine to q3h RT hopefully next week Continue antibiotic therapy
[2018-08-21] MEDS ORDERED: DEXTROSE 5%-WATER - 50 ML IVPB ONE ×3 (01:04→17:33)
[2018-08-21] MEDS ORDERED: PIPERACILLIN/TAZOBACTAM 3.375 GM VIAL IVPB ONE ×3 (01:04→17:33)
[2018-08-21] MEDS: PIPERACILLIN/TAZOB 3.375 GM 3.375 GM in DEXTROSE 5%-WATER - 50 ML IVPB SCH ×3 (01:11→17:47)
[2018-08-21] MEDS: SODIUM CHLORIDE 1,000 ML IV SCH ×2 (01:14→14:00)
[2018-08-21] MEDS: DOCUSATE SODIUM 100 MG CAPSULE (FP) PO SCH ×3 (05:36→22:18)
[2018-08-21] MEDS: MORPHINE SULFATE 2 MG/ML VIAL IVPUSH PRN ×4 (05:36→22:16)
[2018-08-21 06:47] LABS: BASO % 0.1 % (0-2.0); EOS % 0.3 % (0-4.5); HEMATOCRIT 25.1 % (35.4-49); LYMPH % 3.8 % (8-40); MCH 26.5 pg (25.7-33.7); MCHC 31.9 g/dl (32.0-35.9); MEAN CELL VOLUME 83.1 fl (80-96); MEAN PLT VOLUME 8.3 fl (7.5-11.1); MONO % 6.9 % (3.8-10.2); NEUT % 88.9 % (42.8-82.8); PLATELET COUNT 133 K/MM3 (134-434); RBC 3.02 M/mm3 (4.00-5.60); RDW 18.1 % (11.9-15.9); WHITE BLOOD COUNT 13.7 K/mm3 (4.0-10.0)
[2018-08-21 07:14] LABS: ALK PHOS 250 U/L (45-117); ANION GAP 9 MMOL/L (8-16); BILIRUBIN,TOTAL 1.5 mg/dL (0.2-1); BLOOD UREA NITROGEN 52 mg/dL (7-18); CHLORIDE 110 mmol/L (98-107); CO2 22 mmol/L (21-32); CREATININE 1.8 mg/dL (0.55-1.3); GLUCOSE,RANDOM 88 mg/dL (74-106); MAGNESIUM 2.8 mg/dL (1.8-2.4); POTASSIUM 3.7 mmol/L (3.5-5.1); SGOT/AST 33 U/L (15-37); SGPT/ALT 29 U/L (13-61); SODIUM 142 mmol/L (136-145); TOT PROT 4.3 g/dl (6.4-8.2)
[2018-08-21] MEDS: CARVEDILOL 12.5 MG TABLET (FP) PO SCH ×2 (09:27→22:18)
[2018-08-21] MEDS: PANTOPRAZOLE 40 MG TABLET (FP) PO SCH (09:27)
[2018-08-21] MEDS: HEPARIN NA (PORCINE) 5,000 UNITS/ML 1ML VIAL SQ SCH ×2 (09:28→22:05)
[2018-08-21] MEDS: POLYETHYLENE GLYCOL 3350 119 GM BTL PO SCH (09:36)
[2018-08-21] MEDS: LOSARTAN 50MG/HCTZ 12.5MG 1 TAB (FP) PO SCH (09:36)
--- NOTE | 2018-08-21 10:36 | PN ---
Progress Note, Physician History of Present Illness: C/O generalized pain No c/o fever/ chills Temps down afebrile Lab reports one BC bottle+ GPCCL Repeat BC pending - Current Medication List Current Medications: Active Medications Acetaminophen (Tylenol -) 650 mg PO Q4H PRN PRN Reason: FEVER Last Admin: 08/19/18 21:56 Dose: 650 mg Carvedilol (Coreg -) 12.5 mg PO BID [facility] Last Admin: 08/21/18 09:27 Dose: 12.5 mg Docusate Sodium (Colace -) 100 mg PO TID [facility] Last Admin: 08/21/18 05:36 Dose: 100 mg Fentanyl (Duragesic 12mcg Patch -) 1 patch TD Q72H [facility] Stop: 08/27/18 12:09 Last Admin: 08/20/18 13:35 Dose: 1 patch HCTZ/Losartan Potassium (Hyzaar -) 2 tab PO DAILY [facility] Last Admin: 08/21/18 09:36 Dose: 2 tab Heparin Sodium (Porcine) (Heparin -) 5,000 unit SQ BID [facility] Last Admin: 08/21/18 09:28 Dose: 5,000 unit IV Flush (Vu-Cath Flush) 10 ml IVPUSH PRN PRN PRN Reason: protocol, patency maintenance Last Admin: 08/19/18 06:18 Dose: 10 ml Sodium Chloride (Normal Saline -) 1,000 mls @ 100 mls/hr IV ASDIR [facility] Last Admin: 08/21/18 01:14 Dose: 100 mls/hr Piperacillin Sod/Tazobactam (Sod 3.375 gm/ Dextrose) 50 mls @ 100 mls/hr IVPB Q8H-IV AJ; Protocol Last Admin: 08/21/18 09:37 Dose: 100 mls/hr Miscellaneous (Duragesic Patch Waste) 1 each TD PRN PRN PRN Reason: PAIN Morphine Sulfate (Morphine Sulfate) 2 mg IVPUSH Q3H PRN PRN Reason: PAIN LEVEL 6-10 Last Admin: 08/21/18 09:27 Dose: 2 mg Pantoprazole Sodium (Protonix -) 40 mg PO DAILY [facility] Last Admin: 08/21/18 09:27 Dose: 40 mg Polyethylene Glycol (Miralax (For Daily Use) -) 17 gm PO DAILY [facility] Last Admin: 08/21/18 09:36 Dose: 17 grams - Objective Vital Signs: Vital Signs Temperature 97.7 F 08/21/18 06:02 Pulse Rate 82 08/21/18 06:02 Respiratory Rate 18 08/21/18 06:02 Blood Pressure 112/76 08/21/18 06:02 O2 Sat by Pulse Oximetry (%) 96 08/20/18 21:00 Constitutional: Yes: No Distress, Thin Cardiovascular: Yes: Regular Rate and Rhythm, S1, S2 Respiratory: Yes: Diminished Gastrointestinal: Yes: Normal Bowel Sounds, Soft. No: Tenderness Edema: LLE: 1+, RLE: 1+ Integumentary: Yes: Other (port site no erythema) Labs: CBC, BMP 08/21/18 05:31 08/21/18 05:31 Assessment/Plan Fever +BC GPCCL x 1 bottle unclear significance Metastatic ca Azotemia Await c/s Vancomycin x 1 dose Continue zosyn
--- NOTE | 2018-08-21 11:51 | PN ---
Progress Note (short form) - Note Progress Note: Patient seen and examined by me at bedside. Still complains of Pain, especially of the left leg Patient remains Afebrile for about 48 hours Vital Signs Temperature 97.7 F 08/21/18 06:02 Pulse Rate 82 08/21/18 06:02 Respiratory Rate 18 08/21/18 06:02 Blood Pressure 112/76 08/21/18 06:02 O2 Sat by Pulse Oximetry (%) 96 08/20/18 21:00 PHYSICAL EXAM: GENERAL: Awake, CONFUSED Anorexic, no acute distress MOUTH: Dry mucous membranes LUNGS: Diminished breath sounds bilaterally CARDIO: RRR, Normal S1 and S2 ABDOMEN: Soft, Nontender, nondistended, colostomy bag in place EXTREMITIES: Peripheral pitting edema bilaterally Laboratory Tests 08/21/18 05:31 08/21/18 05:31 08/20/18 08/21/18 11:50 05:31 Calcium 7.0 L Magnesium 2.8 H Total Bilirubin 1.5 H Alkaline Phosphatase 250 H Ammonia < 10.00 L Total Protein 4.3 L Albumin 1.0 L Patient is a 48 year old male with metastatic rectal cancer with mets to the liver and lungs on 5-FU/Leucovorin who presented with severe left leg pain for > 1 weeks. Patient found to have sepsis and admitted for further monitoring and management. Problem List: Metastatic Rectal Cancer with perirectal mass extending through sciatic notch and into piriformis muscle. HTN ISMAEL PLAN: Pt was CT simulated for RT - planning in progress. -Seen by radiation oncology and had CT stimulation for RT with plans for possible next week -Pelvic MRI pending to evaluate extent of pelvic disease for RT. However, GFR < 45. Will increase the fluids from 100cc/hr to 125cc/hr -Continue main management with Morphine 2mg Q3H but without adequate control. Will increase his pain management and if no improvement, will need pain management to reassess. -Cultures NGTD -IV Abx, as per ID
--- NOTE | 2018-08-21 12:17 | PN ---
Teaching Attending Note Name of Resident: Mary Mendoza ATTENDING PHYSICIAN STATEMENT I saw and evaluated the patient. I reviewed the resident's note and discussed the case with the resident. I agree with the resident's findings and plan as documented. SUBJECTIVE: Patient seen and examined Discussed with nursing To increase fentanyl Have decrease MS interval to q 3h. Getting it almost round the clock. Would like to do MRI with contrast- to increase hydration. Last Vital Signs Temp Pulse Resp BP Pulse Ox 97.7 F 82 18 112/76 96 08/21/18 06:02 08/21/18 06:02 08/21/18 06:02 08/21/18 06:02 08/20/18 21:00 Cor: RSR, No murmurs, No gallops Lungs: Clear to P&A Abd: Soft, Normal bowel sounds, No organomegaly Ext:No significant edema Skin: No rashes, Integument intact CBC, BMP 08/21/18 05:31 08/21/18 05:31 Current Medications Generic Name Dose Route Start Last Admin Trade Name Freq PRN Reason Stop Dose Admin Acetaminophen 650 mg 08/16/18 15:27 08/19/18 21:56 Tylenol - PO 650 mg Q4H PRN Administration FEVER Carvedilol 12.5 mg 08/16/18 22:00 08/21/18 09:27 Coreg - PO 12.5 mg BID AJ Administration Docusate Sodium 100 mg 08/16/18 22:00 08/21/18 05:36 Colace - PO 100 mg TID AJ Administration Fentanyl 1 patch 08/20/18 12:15 08/20/18 13:35 Duragesic 12mcg Patch - TD 08/27/18 12:09 1 patch Q72H AJ Administration HCTZ/Losartan Potassium 2 tab 08/17/18 10:00 08/21/18 09:36 Hyzaar - PO 2 tab DAILY AJ Administration Heparin Sodium (Porcine) 5,000 unit 08/19/18 10:00 08/21/18 09:28 Heparin - SQ 5,000 unit BID AJ Administration IV Flush 10 ml 08/18/18 22:39 08/19/18 06:18 Vu-Cath Flush IVPUSH 10 ml PRN PRN Administration protocol, patency maintenance Piperacillin Sod/Tazobactam 50 mls @ 100 mls/hr 08/19/18 18:00 08/21/18 09:37 Sod 3.375 gm/ Dextrose IVPB 100 mls/hr Q8H-IV AJ Administration Protocol Sodium Chloride 1,000 mls @ 125 mls/hr 08/21/18 12:09 Normal Saline - IV ASDIR AJ Miscellaneous 1 each 08/20/18 12:08 Duragesic Patch Waste TD PRN PRN PAIN Morphine Sulfate 2 mg 08/20/18 17:02 08/21/18 09:27 Morphine Sulfate IVPUSH 2 mg Q3H PRN Administration PAIN LEVEL 6-10 Pantoprazole Sodium 40 mg 08/17/18 10:00 08/21/18 09:27 Protonix - PO 40 mg DAILY AJ Administration Polyethylene Glycol 17 gm 08/19/18 10:00 08/21/18 09:36 Miralax (For Daily Use) - PO 17 grams DAILY AJ Administration Impression: Metastatic colon ca Sacral mass -for RT and MRI with maddy. Anemia-to monitor. Pain management - to increase fentanyl OBJECTIVE: ASSESSMENT AND PLAN:
[2018-08-21] MEDS: fentaNYL 25mcg/hr PATCH.TD72 TD SCH (14:43)
[2018-08-21] MEDS: FENTANYL PATCH WASTE MC PRN (14:44)
[2018-08-22] MEDS ORDERED: DEXTROSE 5%-WATER - 50 ML IVPB ONE ×3 (02:12→17:30)
[2018-08-22] MEDS ORDERED: PIPERACILLIN/TAZOBACTAM 3.375 GM VIAL IVPB ONE ×4 (02:12→20:42)
[2018-08-22] MEDS: PIPERACILLIN/TAZOB 3.375 GM 3.375 GM in DEXTROSE 5%-WATER - 50 ML IVPB SCH ×3 (02:50→17:52)
[2018-08-22] MEDS: DOCUSATE SODIUM 100 MG CAPSULE (FP) PO SCH ×3 (05:29→21:43)
[2018-08-22] MEDS: MORPHINE SULFATE 2 MG/ML VIAL IVPUSH PRN ×2 (06:30→18:19)
--- NOTE | 2018-08-22 09:53 | PN ---
Progress Note (short form) - Note Progress Note: Patient seen and examined More alert , communicative Pain better controlled on morphine and increased fentanyl patch Last Vital Signs Temp Pulse Resp BP Pulse Ox 98.2 F 91 H 20 116/82 96 08/22/18 06:00 08/22/18 06:00 08/22/18 06:00 08/22/18 06:00 08/21/18 21:00 HEENT: EZEQUIEL, EOM Intact Cor: RSR, No murmurs, No gallops Lungs: diminished breath sounds bilaterally Abd: Soft, Normal bowel sounds, No organomegaly, mild distension colostomy filled with air Ext:No significant edema Skin: No rashes, Integument intact CBC, BMP 08/21/18 05:31 08/21/18 05:31 Current Medications Generic Name Dose Route Start Last Admin Trade Name Freq PRN Reason Stop Dose Admin Acetaminophen 650 mg 08/16/18 15:27 08/19/18 21:56 Tylenol - PO 650 mg Q4H PRN Administration FEVER Carvedilol 12.5 mg 08/16/18 22:00 08/21/18 22:18 Coreg - PO 12.5 mg BID AJ Administration Docusate Sodium 100 mg 08/16/18 22:00 08/22/18 05:29 Colace - PO 100 mg TID AJ Administration Fentanyl 1 patch 08/21/18 13:00 08/21/18 14:43 Duragesic 25mcg Patch - TD 08/28/18 12:50 1 patch Q72H AJ Administration HCTZ/Losartan Potassium 2 tab 08/17/18 10:00 08/21/18 09:36 Hyzaar - PO 2 tab DAILY AJ Administration Heparin Sodium (Porcine) 5,000 unit 08/19/18 10:00 08/21/18 22:05 Heparin - SQ 5,000 unit BID AJ Administration IV Flush 10 ml 08/18/18 22:39 08/19/18 06:18 Vu-Cath Flush IVPUSH 10 ml PRN PRN Administration protocol, patency maintenance Piperacillin Sod/Tazobactam 50 mls @ 100 mls/hr 08/19/18 18:00 08/22/18 02:50 Sod 3.375 gm/ Dextrose IVPB 100 mls/hr Q8H-IV AJ Administration Protocol Sodium Chloride 1,000 mls @ 125 mls/hr 08/21/18 12:09 08/21/18 14:00 Normal Saline - IV 125 mls/hr ASDIR AJ Administration Miscellaneous 1 each 08/21/18 12:50 08/21/18 14:44 Duragesic Patch Waste MC 1 each PRN PRN Administration PAIN Morphine Sulfate 2 mg 08/20/18 17:02 08/22/18 06:30 Morphine Sulfate IVPUSH 2 mg Q3H PRN Administration PAIN LEVEL 6-10 Pantoprazole Sodium 40 mg 08/17/18 10:00 08/21/18 09:27 Protonix - PO 40 mg DAILY AJ Administration Polyethylene Glycol 17 gm 08/19/18 10:00 08/21/18 09:36 Miralax (For Daily Use) - PO 17 grams DAILY AJ Administration Impression: Metastatic colon ca Liver mets Sacral mass Sepsis Anemia Pain management ISMAEL Plan: Check and monitor labs- to order LE duplex MRI with Zay pending kidney function Current pain management RT-- 08/25
[2018-08-22] MEDS: PANTOPRAZOLE 40 MG TABLET (FP) PO SCH (10:55)
[2018-08-22] MEDS: CARVEDILOL 12.5 MG TABLET (FP) PO SCH ×2 (10:55→21:43)
[2018-08-22] MEDS: HEPARIN NA (PORCINE) 5,000 UNITS/ML 1ML VIAL SQ SCH ×2 (10:56→21:43)
[2018-08-22] MEDS: SODIUM CHLORIDE 1,000 ML IV SCH ×2 (10:56→15:11)
[2018-08-22] MEDS: LOSARTAN 50MG/HCTZ 12.5MG 1 TAB (FP) PO SCH (10:59)
[2018-08-22] MEDS: POLYETHYLENE GLYCOL 3350 119 GM BTL PO SCH (10:59)
--- NOTE | 2018-08-22 11:01 | PN ---
Progress Note, Physician History of Present Illness: events noted Chart reviewed Seen on the floor Less confused In severe pain mostly in the left leg Patient also on a combination of morphine sulfate and Duragesic patch low dosage Normal attention span Unfortunately loss the movement in the left leg proximal muscles - Current Medication List Current Medications: Active Medications Acetaminophen (Tylenol -) 650 mg PO Q4H PRN PRN Reason: FEVER Last Admin: 08/19/18 21:56 Dose: 650 mg Carvedilol (Coreg -) 12.5 mg PO BID [facility] Last Admin: 08/22/18 10:55 Dose: 12.5 mg Docusate Sodium (Colace -) 100 mg PO TID [facility] Last Admin: 08/22/18 05:29 Dose: 100 mg Fentanyl (Duragesic 25mcg Patch -) 1 patch TD Q72H [facility] Stop: 08/28/18 12:50 Last Admin: 08/21/18 14:43 Dose: 1 patch HCTZ/Losartan Potassium (Hyzaar -) 2 tab PO DAILY [facility] Last Admin: 08/22/18 10:59 Dose: 2 tab Heparin Sodium (Porcine) (Heparin -) 5,000 unit SQ BID [facility] Last Admin: 08/22/18 10:56 Dose: 5,000 unit IV Flush (Vu-Cath Flush) 10 ml IVPUSH PRN PRN PRN Reason: protocol, patency maintenance Last Admin: 08/19/18 06:18 Dose: 10 ml Piperacillin Sod/Tazobactam (Sod 3.375 gm/ Dextrose) 50 mls @ 100 mls/hr IVPB Q8H-IV AJ; Protocol Last Admin: 08/22/18 10:55 Dose: 100 mls/hr Sodium Chloride (Normal Saline -) 1,000 mls @ 125 mls/hr IV ASDIR [facility] Last Admin: 08/22/18 10:56 Dose: 125 mls/hr Miscellaneous (Duragesic Patch Waste) 1 each MC PRN PRN PRN Reason: PAIN Last Admin: 08/21/18 14:44 Dose: 1 each Morphine Sulfate (Morphine Sulfate) 2 mg IVPUSH Q3H PRN PRN Reason: PAIN LEVEL 6-10 Last Admin: 08/22/18 06:30 Dose: 2 mg Pantoprazole Sodium (Protonix -) 40 mg PO DAILY [facility] Last Admin: 08/22/18 10:55 Dose: 40 mg Polyethylene Glycol (Miralax (For Daily Use) -) 17 gm PO DAILY AJ Last Admin: 08/22/18 10:59 Dose: 17 grams - Objective Vital Signs: Vital Signs Temperature 98.2 F 08/22/18 06:00 Pulse Rate 91 H 08/22/18 06:00 Respiratory Rate 20 08/22/18 06:00 Blood Pressure 116/82 08/22/18 06:00 O2 Sat by Pulse Oximetry (%) 96 08/21/18 21:00 Constitutional: Yes: Well Nourished Eyes: Yes: WNL Neurological: Yes: Alert, Oriented, Babinski negative ...Motor Strength: LLE (2/5 distal) Problem List - Problems (1) Neuropathy Assessment/Plan: 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 Neuro checks 2. Bedside physical therapy 3. Continue combination of the Duragesic patch and morphine 4. Nerve relaxant 5. Follow-up the blood work for sepsis Prognosis is poor for good recovery Code(s): G62.9 - POLYNEUROPATHY, UNSPECIFIED
[2018-08-22 11:02] LABS: BASO % 0.1 % (0-2.0); EOS % 0.2 % (0-4.5); HEMATOCRIT 22.8 % (35.4-49); LYMPH % 4.6 % (8-40); MCH 28.3 pg (25.7-33.7); MCHC 34.9 g/dl (32.0-35.9); MEAN CELL VOLUME 80.9 fl (80-96); MEAN PLT VOLUME 8.2 fl (7.5-11.1); MONO % 3.6 % (3.8-10.2); NEUT % 91.5 % (42.8-82.8); PLATELET COUNT 139 K/MM3 (134-434); RBC 2.82 M/mm3 (4.00-5.60); RDW 18.6 % (11.9-15.9); WHITE BLOOD COUNT 14.7 K/mm3 (4.0-10.0)
[2018-08-22 11:47] LABS: ALK PHOS 284 U/L (45-117); ANION GAP 12 MMOL/L (8-16); BLOOD UREA NITROGEN 60 mg/dL (7-18); CHLORIDE 109 mmol/L (98-107); CO2 19 mmol/L (21-32); CREATININE 2.1 mg/dL (0.55-1.3); GLUCOSE,RANDOM 100 mg/dL (74-106); MAGNESIUM 2.7 mg/dL (1.8-2.4); POTASSIUM 3.8 mmol/L (3.5-5.1); SGOT/AST 39 U/L (15-37); SGPT/ALT 25 U/L (13-61); SODIUM 140 mmol/L (136-145); TOT PROT 4.3 g/dl (6.4-8.2)
--- NOTE | 2018-08-22 12:53 | PN ---
Progress Note (short form) - Note Progress Note: was seen by me yesterday and today-- spoke to RN confused c/io pain in leg Vital Signs - 24 hr 08/21/18 08/21/18 08/21/18 14:14 18:00 21:00 Temperature 98.6 F 98.4 F Pulse Rate 93 H 103 H Respiratory 18 18 18 Rate Blood Pressure 120/77 114/77 O2 Sat by Pulse 96 Oximetry (%) 08/21/18 08/22/18 08/22/18 22:00 06:00 10:00 Temperature 98.2 F 98.2 F 98.7 F Pulse Rate 102 H 91 H 95 H Respiratory 20 20 18 Rate Blood Pressure 115/78 116/82 116/75 O2 Sat by Pulse Oximetry (%) Current Medications Generic Name Dose Route Start Last Admin Trade Name Freq PRN Reason Stop Dose Admin Acetaminophen 650 mg 08/16/18 15:27 08/19/18 21:56 Tylenol - PO 650 mg Q4H PRN Administration FEVER Carvedilol 12.5 mg 08/16/18 22:00 08/22/18 10:55 Coreg - PO 12.5 mg BID AJ Administration Docusate Sodium 100 mg 08/16/18 22:00 08/22/18 05:29 Colace - PO 100 mg TID AJ Administration Fentanyl 1 patch 08/21/18 13:00 08/21/18 14:43 Duragesic 25mcg Patch - TD 08/28/18 12:50 1 patch Q72H AJ Administration HCTZ/Losartan Potassium 2 tab 08/17/18 10:00 08/22/18 10:59 Hyzaar - PO 2 tab DAILY AJ Administration Heparin Sodium (Porcine) 5,000 unit 08/19/18 10:00 08/22/18 10:56 Heparin - SQ 5,000 unit BID AJ Administration IV Flush 10 ml 08/18/18 22:39 08/19/18 06:18 Vu-Cath Flush IVPUSH 10 ml PRN PRN Administration protocol, patency maintenance Piperacillin Sod/Tazobactam 50 mls @ 100 mls/hr 08/19/18 18:00 08/22/18 10:55 Sod 3.375 gm/ Dextrose IVPB 100 mls/hr Q8H-IV AJ Administration Protocol Sodium Chloride 1,000 mls @ 125 mls/hr 08/21/18 12:09 08/22/18 10:56 Normal Saline - IV 125 mls/hr ASDIR AJ Administration Miscellaneous 1 each 08/21/18 12:50 08/21/18 14:44 Duragesic Patch Waste MC 1 each PRN PRN Administration PAIN Morphine Sulfate 2 mg 08/20/18 17:02 08/22/18 06:30 Morphine Sulfate IVPUSH 2 mg Q3H PRN Administration PAIN LEVEL 6-10 Pantoprazole Sodium 40 mg 08/17/18 10:00 08/22/18 10:55 Protonix - PO 40 mg DAILY AJ Administration Polyethylene Glycol 17 gm 08/19/18 10:00 08/22/18 10:59 Miralax (For Daily Use) - PO 17 grams DAILY AJ Administration Pregabalin 50 mg 08/22/18 22:00 Lyrica - PO BID AJ Laboratory Results - last 24 hr 08/21/18 08/22/18 08/22/18 05:31 10:45 10:45 WBC 14.7 H RBC 2.82 L Hgb 8.0 L Hct 22.8 L MCV 80.9 MCH 28.3 MCHC 34.9 RDW 18.6 H Plt Count 139 MPV 8.2 Absolute Neuts (auto) 13.4 H Total Counted 100 Neutrophils % 91.5 H Neutrophils % (Manual) 92.0 H* Band Neutrophils % 5.0 Lymphocytes % 4.6 L D Monocytes % 3.6 L Monocytes % (Manual) 3 L Eosinophils % 0.2 Basophils % 0.1 Nucleated RBC % 0 Sodium 140 Potassium 3.8 Chloride 109 H Carbon Dioxide 19 L Anion Gap 12 BUN 60 H Creatinine 2.1 H Creat Clearance w eGFR 33.74 Random Glucose 100 Calcium 7.0 L Magnesium 2.7 H Total Bilirubin 2.0 H AST 39 H ALT 25 Alkaline Phosphatase 284 H Total Protein 4.3 L Albumin 1.0 L S1 S2 RRR Anorexic Lungs decreased Abd - soft, NT, Colostomy functioning Ext- no edema PLAN Sepsis vs tumor fever- blood cultures - one positive renal function worsening iv fluids iv antibiotics Renal evaluation iv fluids pain control possibly tumor related undergoing RT pending pelvic MRI Problem List - Problems (1) Intractable back pain Code(s): M54.9 - DORSALGIA, UNSPECIFIED (2) Metastatic colon cancer to liver Code(s): C18.9 - MALIGNANT NEOPLASM OF COLON, UNSPECIFIED; C78.7 - SECONDARY MALIG NEOPLASM OF LIVER AND INTRAHEPATIC BILE DUCT (3) Neuropathy Code(s): G62.9 - POLYNEUROPATHY, UNSPECIFIED (4) Sciatica of left side Code(s): M54.32 - SCIATICA, LEFT SIDE (5) Hypertension Code(s): I10 - ESSENTIAL (PRIMARY) HYPERTENSION
[2018-08-22 12:56] VITALS: BMI 26.1
[2018-08-22] MEDS ORDERED: PORTA CATH FLUSH 10 ML IVPUSH PRN (13:46)
[2018-08-22] MEDS ORDERED: LORazepam 2 MG/ML SDV VIAL IVPUSH ONE (14:05)
--- NOTE | 2018-08-22 14:05 | PN ---
Progress Note, Physician History of Present Illness: No focal complaint at present No c/o fever/ chills Temps down afebrile one BC bottle+ GPCCL growing anaerobically Repeat BC no growth - Current Medication List Current Medications: Active Medications Acetaminophen (Tylenol -) 650 mg PO Q4H PRN PRN Reason: FEVER Last Admin: 08/19/18 21:56 Dose: 650 mg Carvedilol (Coreg -) 12.5 mg PO BID [facility] Last Admin: 08/22/18 10:55 Dose: 12.5 mg Docusate Sodium (Colace -) 100 mg PO TID [facility] Last Admin: 08/22/18 05:29 Dose: 100 mg Fentanyl (Duragesic 25mcg Patch -) 1 patch TD Q72H [facility] Stop: 08/28/18 12:50 Last Admin: 08/21/18 14:43 Dose: 1 patch HCTZ/Losartan Potassium (Hyzaar -) 2 tab PO DAILY [facility] Last Admin: 08/22/18 10:59 Dose: 2 tab Heparin Sodium (Porcine) (Heparin -) 5,000 unit SQ BID [facility] Last Admin: 08/22/18 10:56 Dose: 5,000 unit IV Flush (Vu-Cath Flush) 10 ml IVPUSH PRN PRN PRN Reason: protocol, patency maintenance Last Admin: 08/19/18 06:18 Dose: 10 ml IV Flush (Vu-Cath Flush) 10 ml IVPUSH PRN PRN PRN Reason: FLUSH Piperacillin Sod/Tazobactam (Sod 3.375 gm/ Dextrose) 50 mls @ 100 mls/hr IVPB Q8H-IV AJ; Protocol Last Admin: 08/22/18 10:55 Dose: 100 mls/hr Sodium Chloride (Normal Saline -) 1,000 mls @ 125 mls/hr IV ASDIR AJ Last Admin: 08/22/18 10:56 Dose: 125 mls/hr Miscellaneous (Duragesic Patch Waste) 1 each MC PRN PRN PRN Reason: PAIN Last Admin: 08/21/18 14:44 Dose: 1 each Morphine Sulfate (Morphine Sulfate) 2 mg IVPUSH Q3H PRN PRN Reason: PAIN LEVEL 6-10 Last Admin: 08/22/18 06:30 Dose: 2 mg Pantoprazole Sodium (Protonix -) 40 mg PO DAILY [facility] Last Admin: 08/22/18 10:55 Dose: 40 mg Polyethylene Glycol (Miralax (For Daily Use) -) 17 gm PO DAILY [facility] Last Admin: 08/22/18 10:59 Dose: 17 grams Pregabalin (Lyrica -) 50 mg PO BID [facility] - Objective Vital Signs: Vital Signs Temperature 98.6 F 08/22/18 13:46 Pulse Rate 104 H 08/22/18 13:46 Respiratory Rate 18 08/22/18 13:46 Blood Pressure 128/86 08/22/18 13:46 O2 Sat by Pulse Oximetry (%) 96 08/21/18 21:00 Constitutional: Yes: No Distress Eyes: Yes: Conjunctiva Clear Cardiovascular: Yes: Regular Rate and Rhythm, S1, S2 Respiratory: Yes: CTA Bilaterally Gastrointestinal: Yes: Normal Bowel Sounds, Soft, Other (+ ostomy) Integumentary: Yes: Other (port site no erythema) Labs: CBC, BMP 08/22/18 10:45 08/22/18 10:45 Assessment/Plan Fever resolved +BC GPCCL x 1 bottle unclear significance ? anaerobe secondary to GI source Metastatic ca Azotemia Await c/s Continue zosyn
--- NOTE | 2018-08-22 15:14 | CONSULT ---
Consult Consult Specialty:: Nephrology ( Abdulaziz/ Ashok) Referred by:: Cecile Harris MD Reason for Consultation:: Worsening Renal failure - History of Present Illness Chief Complaint: Severe back and LE pain. History of Present Illness: 48 yrs old male - colon ca- mets to liver and lungs-s/p colostomy- now on chemotherapy- H/o Hypertension, Wt loss. 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: CVA (with dizziness and LLE paresis about 1 year ago which resolved at [facility]) Cardio/Vascular: Yes: HTN, Hyperlipdemia Gastrointestinal: Yes: Cancer, Constipation Heme/Onc: Yes: Current Chemotherapy, Current Radiation Therapy - Alcohol/Substance Use Hx Alcohol Use: No History of Substance Use: reports: None - Smoking History Smoking history: Never smoked Have you smoked in the past 12 months: No - Social History Usual Living Arrangement: With Spouse ADL: Independent Occupation: [employer] History of Recent Travel: No Home Medications - Allergies Allergies/Adverse Reactions: Allergies Allergy/AdvReac Type Severity Reaction Status Date / Time shellfish derived Allergy Verified 08/16/18 05:16 - Home Medications Home Medications: Ambulatory Orders Losartan/Hydrochlorothiazide [Hyzaar 100-25 Tablet] 1 each PO DAILY #14 tablet 11/18/14 Carvedilol [Coreg -] 12.5 mg PO BID #28 tablet 09/18/16 Acetaminophen [Tylenol .Regular Strength -] 650 mg PO Q4H PRN tablet 10/29/17 Family Disease History - Family Disease History Family Disease History: CA: Sister ( ovarian cancer in her 30s), Other: Father (CVA, HTN, colon polyps ), Mother (HTN, no polyps on colonoscopy) Review of Systems - Review of Systems Constitutional: reports: Malaise, Unintentional Wgt. Loss, Weakness, Other ( Severe pain) Eyes: denies: Blind Spots, Blurred Vision HENT: denies: Difficult Swallowing Neck: denies: Decreased ROM Cardiovascular: denies: Chest Pain Respiratory: reports: No Symptoms Genitourinary: reports: No Symptoms Musculoskeletal: reports: Back Pain, Decreased ROM, Extremity Pain, Joint Pain, Muscle Pain Neurological: reports: No Symptoms, Parasthesia Physical Exam Vital Signs: Vital Signs Temperature 98.6 F 08/22/18 13:46 Pulse Rate 104 H 08/22/18 13:46 Respiratory Rate 18 08/22/18 13:46 Blood Pressure 128/86 08/22/18 13:46 O2 Sat by Pulse Oximetry (%) 96 08/21/18 21:00 Constitutional: Yes: Moderate Distress HENT: Yes: Atraumatic Neck: Yes: Trachea Midline Cardiovascular: Yes: Regular Rate and Rhythm, S1, S2 Respiratory: Yes: CTA Bilaterally Gastrointestinal: Yes: Soft Musculoskeletal: Yes: Back Pain, Joint Stiffness, Muscle Pain Edema: No Neurological: Yes: Alert, Oriented, Weakness Labs: CBC, BMP 08/22/18 10:45 08/22/18 10:45 Assessment/Plan 48 yrs old male with h/o Ca colon with mets to liver and lungs-s/p colostomy- now on chemotherapy- admitted with intractable back pain radiating to left lower extremity for a couple of days The patient in severe pain. Good urine output reported. ISMAEL...most likely due to reduced Renal perfusion. The Renal functions are progressively worsening. The BP tends to be running low. Will D/C Hyzaar. Detailed w/u only if the azotemia worsens. Thank you. Will follow with you. Arlene Cintron MD
[2018-08-22 16:24] LABS: ANISOCYTOSIS 1+; MACROCYTOSIS 1+; PLATELET ESTIMATE DECREASED
[2018-08-22] MEDS: PREGABALIN 50 MG CAPSULE PO SCH (21:43)
[2018-08-23] MEDS: PIPERACILLIN/TAZOB 3.375 GM 3.375 GM in DEXTROSE 5%-WATER - 50 ML IVPB SCH ×3 (01:28→17:39)
[2018-08-23] MEDS: DOCUSATE SODIUM 100 MG CAPSULE (FP) PO SCH ×3 (05:49→21:48)
[2018-08-23] MEDS ORDERED: LORazepam 2 MG/ML SDV VIAL IVPUSH ONE (07:30)
[2018-08-23 07:35] LABS: BASO % 0.1 % (0-2.0); EOS % 0.2 % (0-4.5); HEMATOCRIT 21.9 % (35.4-49); LYMPH % 8.7 % (8-40); MCH 26.1 pg (25.7-33.7); MCHC 31.8 g/dl (32.0-35.9); MEAN PLT VOLUME 8.6 fl (7.5-11.1); MONO % 4.2 % (3.8-10.2); NEUT % 86.8 % (42.8-82.8); PLATELET COUNT 122 K/MM3 (134-434); RBC 2.68 M/mm3 (4.00-5.60); RDW 18.5 % (11.9-15.9); WHITE BLOOD COUNT 15.3 K/mm3 (4.0-10.0)
[2018-08-23] MEDS: MORPHINE SULFATE 2 MG/ML VIAL IVPUSH PRN (08:06)
--- NOTE | 2018-08-23 08:24 | PN ---
Progress Note (short form) - Note Progress Note: Renal follow up for ISMAEL Pt seen and examined at the bedside awake and alert no acute complaints denies sensation of full bladder no abd pain, sob, cp s/p MRI of pelvis this am Vital Signs Temperature 97.8 F 08/23/18 05:25 Pulse Rate 91 H 08/23/18 05:25 Respiratory Rate 20 08/23/18 05:25 Blood Pressure 117/75 08/23/18 05:25 O2 Sat by Pulse Oximetry (%) 96 08/22/18 21:00 Intake & Output 08/20/18 08/21/18 08/22/18 08/23/18 23:59 23:59 23:59 23:59 Intake Total 2049 1950 2190 1050 Output Total 1850 Balance 2049 3140 957 5657 NAD RRR CTA mild abd distension, ostomy in place trace LE swelling CBC, BMP 08/23/18 06:30 Laboratory Tests 08/19/18 08/22/18 08/23/18 15:00 10:45 06:30 MCV 82.0 Calcium 7.0 L Magnesium 2.7 H Albumin 1.0 L Urine Protein 2+ H Urine Blood 1+ H Urine WBC (Auto) <1 Urine RBC (Auto) <1 Current Medications Acetaminophen (Tylenol -) 650 mg PO Q4H PRN PRN Reason: FEVER Last Admin: 08/19/18 21:56 Dose: 650 mg Carvedilol (Coreg -) 12.5 mg PO BID [facility] Last Admin: 08/22/18 21:43 Dose: 12.5 mg Docusate Sodium (Colace -) 100 mg PO TID [facility] Last Admin: 08/23/18 05:49 Dose: 100 mg Fentanyl (Duragesic 25mcg Patch -) 1 patch TD Q72H [facility] Stop: 08/28/18 12:50 Last Admin: 08/21/18 14:43 Dose: 1 patch Heparin Sodium (Porcine) (Heparin -) 5,000 unit SQ BID [facility] Last Admin: 08/22/18 21:43 Dose: 5,000 unit IV Flush (Vu-Cath Flush) 10 ml IVPUSH PRN PRN PRN Reason: protocol, patency maintenance Last Admin: 08/19/18 06:18 Dose: 10 ml IV Flush (Vu-Cath Flush) 10 ml IVPUSH PRN PRN PRN Reason: FLUSH Piperacillin Sod/Tazobactam (Sod 3.375 gm/ Dextrose) 50 mls @ 100 mls/hr IVPB Q8H-IV AJ; Protocol Last Admin: 08/23/18 01:28 Dose: 100 mls/hr Sodium Chloride (Normal Saline -) 1,000 mls @ 125 mls/hr IV ASDIR AJ Last Admin: 08/22/18 15:11 Dose: Not Given Miscellaneous (Duragesic Patch Waste) 1 each MC PRN PRN PRN Reason: PAIN Last Admin: 08/21/18 14:44 Dose: 1 each Morphine Sulfate (Morphine Sulfate) 2 mg IVPUSH Q3H PRN PRN Reason: PAIN LEVEL 6-10 Last Admin: 08/23/18 08:06 Dose: 2 mg Pantoprazole Sodium (Protonix -) 40 mg PO DAILY [facility] Last Admin: 08/22/18 10:55 Dose: 40 mg Polyethylene Glycol (Miralax (For Daily Use) -) 17 gm PO DAILY [facility] Last Admin: 08/22/18 10:59 Dose: 17 grams Pregabalin (Lyrica -) 50 mg PO BID [facility] Last Admin: 08/22/18 21:43 Dose: 50 mg 48 year old gentleman with hx of Colon Ca on Chemo, Hypertension, CVA who presented with severe back pain and noted to develop ISMAEL during the hospital course. #ISMAEL likely secondary to renal hypoprofuisonin setting of ARB/HCTZ +/- urinary retention Renal function unchanged in the last 24 hours, lost dose of hyzaar was given yesterday imaging studies show no hydro but did not bladder distension requested bladder scan and gilmore placement if PVR > 400cc continue supportive care trend real function and electrolytes avoid nsaids for pain control Sami Pulido DO
[2018-08-23 08:50] LABS: ALBUMIN 0.9 g/dl (3.4-5.0); ALK PHOS 316 U/L (45-117); ANION GAP 12 MMOL/L (8-16); BLOOD UREA NITROGEN 65 mg/dL (7-18); CHLORIDE 112 mmol/L (98-107); CO2 19 mmol/L (21-32); CREATININE 2.1 mg/dL (0.55-1.3); GLUCOSE,RANDOM 78 mg/dL (74-106); POTASSIUM 3.6 mmol/L (3.5-5.1); SGOT/AST 45 U/L (15-37); SGPT/ALT 27 U/L (13-61); SODIUM 142 mmol/L (136-145); TOT PROT 4.1 g/dl (6.4-8.2)
[2018-08-23 09:20] LABS: CALCIUM 6.8 mg/dL (8.5-10.1)
[2018-08-23 10:24] LABS: ANISOCYTOSIS 1+; MACROCYTOSIS 0; PLATELET ESTIMATE DECREASED
[2018-08-23] MEDS ORDERED: PIPERACILLIN/TAZOBACTAM 3.375 GM VIAL IVPB ONE ×2 (11:43→17:22)
[2018-08-23] MEDS ORDERED: DEXTROSE 5%-WATER - 50 ML IVPB ONE ×2 (11:43→17:22)
[2018-08-23] MEDS: HEPARIN NA (PORCINE) 5,000 UNITS/ML 1ML VIAL SQ SCH ×2 (11:50→21:49)
[2018-08-23] MEDS: PREGABALIN 50 MG CAPSULE PO SCH (11:50)
[2018-08-23] MEDS: PANTOPRAZOLE 40 MG TABLET (FP) PO SCH (11:50)
[2018-08-23] MEDS: CARVEDILOL 12.5 MG TABLET (FP) PO SCH ×2 (11:50→21:48)
[2018-08-23] MEDS: SODIUM CHLORIDE 1,000 ML IV SCH (12:28)
--- NOTE | 2018-08-23 12:28 | PN ---
Progress Note, Physician History of Present Illness: Lab now reports GNR in BC from 08/18/18 No focal complaint at present No c/o fever/ chills Temps down afebrile one BC bottle+ GPCCL , GNR growing anaerobically Repeat BC no growth - Current Medication List Current Medications: Active Medications Acetaminophen (Tylenol -) 650 mg PO Q4H PRN PRN Reason: FEVER Last Admin: 08/19/18 21:56 Dose: 650 mg Carvedilol (Coreg -) 12.5 mg PO BID [facility] Last Admin: 08/23/18 11:50 Dose: 12.5 mg Docusate Sodium (Colace -) 100 mg PO TID [facility] Last Admin: 08/23/18 05:49 Dose: 100 mg Fentanyl (Duragesic 25mcg Patch -) 1 patch TD Q72H [facility] Stop: 08/28/18 12:50 Last Admin: 08/21/18 14:43 Dose: 1 patch Heparin Sodium (Porcine) (Heparin -) 5,000 unit SQ BID [facility] Last Admin: 08/23/18 11:50 Dose: 5,000 unit IV Flush (Vu-Cath Flush) 10 ml IVPUSH PRN PRN PRN Reason: protocol, patency maintenance Last Admin: 08/19/18 06:18 Dose: 10 ml IV Flush (Vu-Cath Flush) 10 ml IVPUSH PRN PRN PRN Reason: FLUSH Piperacillin Sod/Tazobactam (Sod 3.375 gm/ Dextrose) 50 mls @ 100 mls/hr IVPB Q8H-IV AJ; Protocol Last Admin: 08/23/18 11:49 Dose: 100 mls/hr Sodium Chloride (Normal Saline -) 1,000 mls @ 125 mls/hr IV ASDIR AJ Last Admin: 08/22/18 15:11 Dose: Not Given Miscellaneous (Duragesic Patch Waste) 1 each MC PRN PRN PRN Reason: PAIN Last Admin: 08/21/18 14:44 Dose: 1 each Morphine Sulfate (Morphine Sulfate) 2 mg IVPUSH Q3H PRN PRN Reason: PAIN LEVEL 6-10 Last Admin: 08/23/18 08:06 Dose: 2 mg Pantoprazole Sodium (Protonix -) 40 mg PO DAILY [facility] Last Admin: 08/23/18 11:50 Dose: 40 mg Polyethylene Glycol (Miralax (For Daily Use) -) 17 gm PO DAILY [facility] Last Admin: 08/22/18 10:59 Dose: 17 grams Pregabalin (Lyrica -) 50 mg PO BID [facility] Last Admin: 08/23/18 11:50 Dose: 50 mg - Objective Vital Signs: Vital Signs Temperature 97.8 F 08/23/18 05:25 Pulse Rate 91 H 08/23/18 05:25 Respiratory Rate 20 08/23/18 05:25 Blood Pressure 117/75 08/23/18 05:25 O2 Sat by Pulse Oximetry (%) 96 08/22/18 21:00 Constitutional: Yes: No Distress Cardiovascular: Yes: Regular Rate and Rhythm, S1, S2 Respiratory: Yes: CTA Bilaterally Gastrointestinal: Yes: Normal Bowel Sounds, Soft, Other (+ ostomy) Edema: Yes Edema: LLE: 2+, RLE: 1+ Labs: CBC, BMP 08/23/18 06:30 08/23/18 06:30 Assessment/Plan Fever resolved +BC GPCCL /GNR Lkely anaerobes secondary to GI source Metastatic ca Azotemia Await c/s Continue zosyn
[2018-08-23] MEDS: POLYETHYLENE GLYCOL 3350 119 GM BTL PO SCH (12:29)
--- NOTE | 2018-08-23 12:41 | PN ---
Progress Note (short form) - Note Progress Note: more alert today pain in leg sleepy -possibly due to pain meds Vital Signs - 24 hr 08/22/18 08/22/18 08/22/18 13:46 19:58 21:00 Temperature 98.6 F 98.7 F Pulse Rate 104 H 103 H Respiratory 18 18 18 Rate Blood Pressure 128/86 129/76 O2 Sat by Pulse 96 Oximetry (%) 08/22/18 08/23/18 22:00 05:25 Temperature 99.2 F 97.8 F Pulse Rate 99 H 91 H Respiratory 20 20 Rate Blood Pressure 121/77 117/75 O2 Sat by Pulse Oximetry (%) Current Medications Generic Name Dose Route Start Last Admin Trade Name Freq PRN Reason Stop Dose Admin Acetaminophen 650 mg 08/16/18 15:27 08/19/18 21:56 Tylenol - PO 650 mg Q4H PRN Administration FEVER Carvedilol 12.5 mg 08/16/18 22:00 08/23/18 11:50 Coreg - PO 12.5 mg BID AJ Administration Docusate Sodium 100 mg 08/16/18 22:00 08/23/18 05:49 Colace - PO 100 mg TID AJ Administration Fentanyl 1 patch 08/21/18 13:00 08/21/18 14:43 Duragesic 25mcg Patch - TD 08/28/18 12:50 1 patch Q72H AJ Administration Heparin Sodium (Porcine) 5,000 unit 08/19/18 10:00 08/23/18 11:50 Heparin - SQ 5,000 unit BID AJ Administration IV Flush 10 ml 08/18/18 22:39 08/19/18 06:18 Vu-Cath Flush IVPUSH 10 ml PRN PRN Administration protocol, patency maintenance IV Flush 10 ml 08/22/18 13:46 Vu-Cath Flush IVPUSH PRN PRN FLUSH Piperacillin Sod/Tazobactam 50 mls @ 100 mls/hr 08/19/18 18:00 08/23/18 11:49 Sod 3.375 gm/ Dextrose IVPB 100 mls/hr Q8H-IV AJ Administration Protocol Sodium Chloride 1,000 mls @ 125 mls/hr 08/21/18 12:09 08/23/18 12:28 Normal Saline - IV 125 mls/hr ASDIR AJ Administration Miscellaneous 1 each 08/21/18 12:50 08/21/18 14:44 Duragesic Patch Waste MC 1 each PRN PRN Administration PAIN Morphine Sulfate 2 mg 08/20/18 17:02 08/23/18 08:06 Morphine Sulfate IVPUSH 2 mg Q3H PRN Administration PAIN LEVEL 6-10 Pantoprazole Sodium 40 mg 08/17/18 10:00 08/23/18 11:50 Protonix - PO 40 mg DAILY AJ Administration Polyethylene Glycol 17 gm 08/19/18 10:00 08/23/18 12:29 Miralax (For Daily Use) - PO 17 grams DAILY AJ Administration Pregabalin 50 mg 08/22/18 22:00 08/23/18 11:50 Lyrica - PO 50 mg BID AJ Administration Laboratory Results - last 24 hr 08/22/18 08/23/18 08/23/18 10:45 06:30 06:30 WBC 15.3 H RBC 2.68 L Hgb 7.0 L Hct 21.9 L MCV 82.0 MCH 26.1 MCHC 31.8 L RDW 18.5 H Plt Count 122 L MPV 8.6 Absolute Neuts (auto) 13.2 H Neutrophils % 86.8 H Neutrophils % (Manual) 88.9 H D 87.9 H Band Neutrophils % 1.0 4.0 Lymphocytes % 8.7 D Lymphocytes % (Manual) 6.1 L D 3.0 L D Monocytes % 4.2 Monocytes % (Manual) 3 L D 4 Eosinophils % 0.2 Eosinophils % (Manual) 1.0 D 0.0 D Basophils % 0.1 Basophils % (Manual) 0.0 0.0 Myelocytes % (Man) 0 D 1 D Promyelocytes % (Man) 0 0 Blast Cells % (Manual) 0 0 Nucleated RBC % 0 0 Metamyelocytes 0 0 Hypochromia 0 0 Platelet Estimate Decreased Decreased Polychromasia 1+ 1+ Poikilocytosis 0 0 Anisocytosis 1+ 1+ Microcytosis 1+ 1+ Macrocytosis 1+ 0 Sodium 142 Potassium 3.6 Chloride 112 H Carbon Dioxide 19 L Anion Gap 12 BUN 65 H Creatinine 2.1 H Creat Clearance w eGFR 33.74 Random Glucose 78 Calcium 6.8 L* Total Bilirubin 2.0 H AST 45 H ALT 27 Alkaline Phosphatase 316 H Total Protein 4.1 L Albumin 0.9 L S1 S2 RRR Anorexic Lungs decreased Abd - soft, NT, Colostomy functioning Ext- no edema PLAN blood cultures - one positive renal function same iv fluids iv antibiotics Renal evaluation appreciated transfuse 1 unit PRBC today dc Lyrica- maybe contributing to confusion on fentanyl patch and Morphine IV PRN undergoing RT pelvic MRI done Problem List - Problems (1) Intractable back pain Code(s): M54.9 - DORSALGIA, UNSPECIFIED (2) Metastatic colon cancer to liver Code(s): C18.9 - MALIGNANT NEOPLASM OF COLON, UNSPECIFIED; C78.7 - SECONDARY MALIG NEOPLASM OF LIVER AND INTRAHEPATIC BILE DUCT (3) Neuropathy Code(s): G62.9 - POLYNEUROPATHY, UNSPECIFIED (4) Sciatica of left side Code(s): M54.32 - SCIATICA, LEFT SIDE (5) Hypertension Code(s): I10 - ESSENTIAL (PRIMARY) HYPERTENSION
[2018-08-23 13:51] LABS: URINE CREATININE 65.8 mg/dL (2-36)
--- NOTE | 2018-08-23 14:33 | PN ---
Progress Note (short form) - Note Progress Note: PAtient seen and examined c/o left lower extremity pain Last Vital Signs Temp Pulse Resp BP Pulse Ox 97.8 F 91 H 20 117/75 96 08/23/18 05:25 08/23/18 05:25 08/23/18 05:25 08/23/18 05:25 08/22/18 21:00 Cor: RSR, No murmurs, No gallops Lungs: Clear to P&A Abd: Soft, Normal bowel sounds, No organomegaly Ext:No significant edema Abnormal Lab Results 08/22/18 08/23/18 08/23/18 10:45 06:30 06:30 WBC 15.3 H RBC 2.68 L Hgb 7.0 L Hct 21.9 L MCHC 31.8 L RDW 18.5 H Plt Count 122 L Absolute Neuts (auto) 13.2 H Neutrophils % 86.8 H Neutrophils % (Manual) 88.9 H D 87.9 H Lymphocytes % (Manual) 6.1 L D 3.0 L D Monocytes % (Manual) 3 L D Chloride 112 H Carbon Dioxide 19 L BUN 65 H Creatinine 2.1 H Calcium 6.8 L* Total Bilirubin 2.0 H AST 45 H Alkaline Phosphatase 316 H Total Protein 4.1 L Albumin 0.9 L Ur Random Sodium Urine Creatinine Crossmatch 08/23/18 08/23/18 08/23/18 12:00 12:00 13:35 WBC RBC Hgb Hct MCHC RDW Plt Count Absolute Neuts (auto) Neutrophils % Neutrophils % (Manual) Lymphocytes % (Manual) Monocytes % (Manual) Chloride Carbon Dioxide BUN Creatinine Calcium Total Bilirubin AST Alkaline Phosphatase Total Protein Albumin Ur Random Sodium < 18 L Urine Creatinine 65.8 H 65.8 H Crossmatch See Detail Active Medications Generic Name Dose Route Start Last Admin Trade Name Freq PRN Reason Stop Dose Admin Acetaminophen 650 mg 08/23/18 14:35 Tylenol - PO Q6H PRN FEVER Carvedilol 12.5 mg 08/16/18 22:00 08/23/18 11:50 Coreg - PO 12.5 mg BID AJ Administration Docusate Sodium 100 mg 08/16/18 22:00 08/23/18 13:24 Colace - PO 100 mg TID AJ Administration Fentanyl 1 patch 08/21/18 13:00 08/21/18 14:43 Duragesic 25mcg Patch - TD 08/28/18 12:50 1 patch Q72H AJ Administration Heparin Sodium (Porcine) 5,000 unit 08/19/18 10:00 08/23/18 11:50 Heparin - SQ 5,000 unit BID AJ Administration IV Flush 10 ml 08/18/18 22:39 08/19/18 06:18 Vu-Cath Flush IVPUSH 10 ml PRN PRN Administration protocol, patency maintenance IV Flush 10 ml 08/22/18 13:46 Vu-Cath Flush IVPUSH PRN PRN FLUSH Piperacillin Sod/Tazobactam 50 mls @ 100 mls/hr 08/19/18 18:00 08/23/18 11:49 Sod 3.375 gm/ Dextrose IVPB 100 mls/hr Q8H-IV AJ Administration Protocol Sodium Chloride 1,000 mls @ 75 mls/hr 08/23/18 14:38 Normal Saline - IV ASDIR AJ Miscellaneous 1 each 08/21/18 12:50 08/21/18 14:44 Duragesic Patch Waste MC 1 each PRN PRN Administration PAIN Morphine Sulfate 2 mg 08/20/18 17:02 08/23/18 08:06 Morphine Sulfate IVPUSH 2 mg Q3H PRN Administration PAIN LEVEL 6-10 Pantoprazole Sodium 40 mg 08/17/18 10:00 08/23/18 11:50 Protonix - PO 40 mg DAILY AJ Administration Polyethylene Glycol 17 gm 08/19/18 10:00 08/23/18 12:29 Miralax (For Daily Use) - PO 17 grams DAILY AJ Administration A/P 48 y/o with metastatic rectal cancer BRAF mutated/KRAS wild type with liver/ lung mets, s/p surgery, ON FOLFOX/avastin, recent oxaliplatin neuropathy and had been on 5-FU/leucovorin/avastin, recent scans on 08/07 showing progressive disease, comes in with left leg severe pain of 1 week duration. MRI T/L spine show no cord compression Recurrent 6 cm pelvic mass encroaching sciatic foramen MRI pelvis reviewed Recurrent sacral mass with sciatic foraminal encroachment For palliative RT Fever/polymicrobial bacteremia --on zosyn renal insufficiency ---stabilized check renal u/s pain control
[2018-08-23] MEDS ORDERED: SODIUM CHLORIDE 1,000 ML IV SCH (14:38)
--- NOTE | 2018-08-23 15:33 | PN ---
Progress Note (short form) - Note Progress Note: Radiation Oncology Pt was CT simulated for RT - planning in progress. Less confused but still in a lot of pain. MRI pelvis reviewed: presacral mass involving sacral foramina and encasing nerve roots S1-4, with possible muscle invasion. BCx+ anaerobic GNR - on Abx Will begin palliative RT on Mon or Tue if medically stable. Cont pain mgt. Chemo per med onc.
[2018-08-23] MEDS: ACETAMINOPHEN 325 MG TABLET (FP) PO PRN (15:53)
[2018-08-24] MEDS ORDERED: PIPERACILLIN/TAZOBACTAM 3.375 GM VIAL IVPB ONE ×3 (01:01→16:40)
[2018-08-24] MEDS ORDERED: DEXTROSE 5%-WATER - 50 ML IVPB ONE ×3 (01:01→16:40)
[2018-08-24] MEDS: PIPERACILLIN/TAZOB 3.375 GM 3.375 GM in DEXTROSE 5%-WATER - 50 ML IVPB SCH ×3 (02:35→17:17)
[2018-08-24] MEDS: DOCUSATE SODIUM 100 MG CAPSULE (FP) PO SCH ×3 (05:29→21:48)
[2018-08-24] MEDS: MORPHINE SULFATE 2 MG/ML VIAL IVPUSH PRN (05:32)
[2018-08-24 07:50] LABS: BASO % 0.1 % (0-2.0); EOS % 0.2 % (0-4.5); HEMATOCRIT 24.3 % (35.4-49); HEMOGLOBIN 8.4 GM/dL (11.7-16.9); LYMPH % 4.4 % (8-40); MCH 28.5 pg (25.7-33.7); MCHC 34.4 g/dl (32.0-35.9); MEAN CELL VOLUME 82.7 fl (80-96); MEAN PLT VOLUME 9.1 fl (7.5-11.1); MONO % 4.8 % (3.8-10.2); NEUT % 90.5 % (42.8-82.8); PLATELET COUNT 169 K/MM3 (134-434); RBC 2.93 M/mm3 (4.00-5.60); RDW 18.6 % (11.9-15.9); WHITE BLOOD COUNT 16.4 K/mm3 (4.0-10.0)
[2018-08-24 07:52] LABS: ALBUMIN 0.9 g/dl (3.4-5.0); ALK PHOS 323 U/L (45-117); ANION GAP 13 MMOL/L (8-16); BILIRUBIN,TOTAL 1.8 mg/dL (0.2-1); BLOOD UREA NITROGEN 68 mg/dL (7-18); CHLORIDE 111 mmol/L (98-107); CO2 18 mmol/L (21-32); CREATININE 2.3 mg/dL (0.55-1.3); GLUCOSE,RANDOM 80 mg/dL (74-106); MAGNESIUM 2.7 mg/dL (1.8-2.4); PHOSPHOROUS 3.7 mg/dL (2.5-4.9); SGOT/AST 39 U/L (15-37); SGPT/ALT 23 U/L (13-61); SODIUM 142 mmol/L (136-145); TOT PROT 4.1 g/dl (6.4-8.2)
[2018-08-24 08:53] LABS: CALCIUM 6.8 mg/dL (8.5-10.1)
--- NOTE | 2018-08-24 08:57 | PN ---
Progress Note (short form) - Note Progress Note: Renal follow up for ISMAEL Pt seen and examined at the bedside no acute complaints denies any sob, cp, abd pain, N/V/D making urine as per pt Vital Signs Temperature 97.8 F 08/24/18 05:59 Pulse Rate 89 08/24/18 05:59 Respiratory Rate 20 08/24/18 05:59 Blood Pressure 116/69 08/24/18 05:59 O2 Sat by Pulse Oximetry (%) 96 08/23/18 21:00 Intake & Output 08/21/18 08/22/18 08/23/18 08/24/18 23:59 23:59 23:59 23:59 Intake Total 1950 2190 1450 1030 Output Total 1850 401 Balance 3745 827 3077 1030 NAD RRR CTA soft, NT/ND left leg edema, no right leg edema CBC, BMP 08/24/18 06:00 08/24/18 06:00 Laboratory Tests 08/24/18 06:00 Calcium 6.8 L* Phosphorus 3.7 Magnesium 2.7 H Albumin 0.9 L Current Medications Acetaminophen (Tylenol -) 650 mg PO Q6H PRN PRN Reason: FEVER Last Admin: 08/23/18 15:53 Dose: 650 mg Carvedilol (Coreg -) 12.5 mg PO BID [facility] Last Admin: 08/23/18 21:48 Dose: 12.5 mg Docusate Sodium (Colace -) 100 mg PO TID [facility] Last Admin: 08/24/18 05:29 Dose: 100 mg Fentanyl (Duragesic 25mcg Patch -) 1 patch TD Q72H [facility] Stop: 08/28/18 12:50 Last Admin: 08/21/18 14:43 Dose: 1 patch Heparin Sodium (Porcine) (Heparin -) 5,000 unit SQ BID [facility] Last Admin: 08/23/18 21:49 Dose: 5,000 unit IV Flush (Vu-Cath Flush) 10 ml IVPUSH PRN PRN PRN Reason: protocol, patency maintenance Last Admin: 08/19/18 06:18 Dose: 10 ml IV Flush (Vu-Cath Flush) 10 ml IVPUSH PRN PRN PRN Reason: FLUSH Piperacillin Sod/Tazobactam (Sod 3.375 gm/ Dextrose) 50 mls @ 100 mls/hr IVPB Q8H-IV AJ; Protocol Last Admin: 08/24/18 02:35 Dose: 100 mls/hr Sodium Chloride (Normal Saline -) 1,000 mls @ 75 mls/hr IV ASDIR JA Last Admin: 08/23/18 15:29 Dose: 75 mls/hr Miscellaneous (Duragesic Patch Waste) 1 each MC PRN PRN PRN Reason: PAIN Last Admin: 08/21/18 14:44 Dose: 1 each Morphine Sulfate (Morphine Sulfate) 2 mg IVPUSH Q3H PRN PRN Reason: PAIN LEVEL 6-10 Last Admin: 08/24/18 05:32 Dose: 2 mg Pantoprazole Sodium (Protonix -) 40 mg PO DAILY AJ Last Admin: 08/23/18 11:50 Dose: 40 mg Polyethylene Glycol (Miralax (For Daily Use) -) 17 gm PO DAILY AJ Last Admin: 08/23/18 12:29 Dose: 17 grams 48 year old gentleman with hx of Colon Ca on Chemo, Hypertension, CVA who presented with severe back pain and noted to develop ISMAEL during the hospital course. #ISMAEL likely secondary to renal hypoprofuisonin setting of ARB/HCTZ +/- urinary retention (urine Na very low indicating preserved tubular function, bladder scan PVR ~200cc, no hydronephrosis seen on US) #Anion gap metabolic acidosis Renal function w/o improvement thus far given low FeNa will intensify fluid resuscitation will insert Mancia for suspected retention and for accurate I and O Trend renal function and electrolytes daily no indication for [employer] check LA in the AM Sami Pulido DO
--- NOTE | 2018-08-24 09:17 | PN ---
Progress Note (short form) - Note Progress Note: more alert today pain in leg left Vital Signs - 24 hr 08/23/18 08/23/18 08/24/18 21:00 21:47 05:59 Temperature 99 F 97.8 F Pulse Rate 90 89 Respiratory 20 20 20 Rate Blood Pressure 113/70 116/69 O2 Sat by Pulse 96 Oximetry (%) 08/24/18 08/24/18 08/24/18 09:00 10:00 13:38 Temperature 97.9 F 99.1 F Pulse Rate 93 H 97 H Respiratory 20 20 20 Rate Blood Pressure 115/74 117/60 O2 Sat by Pulse 96 Oximetry (%) 08/24/18 18:53 Temperature 98.5 F Pulse Rate 51 L Respiratory 18 Rate Blood Pressure 145/83 O2 Sat by Pulse Oximetry (%) Current Medications Generic Name Dose Route Start Last Admin Trade Name Freq PRN Reason Stop Dose Admin Acetaminophen 650 mg 08/23/18 14:35 08/23/18 15:53 Tylenol - PO 650 mg Q6H PRN Administration FEVER Carvedilol 12.5 mg 08/16/18 22:00 08/24/18 09:33 Coreg - PO 12.5 mg BID AJ Administration Docusate Sodium 100 mg 08/16/18 22:00 08/24/18 14:36 Colace - PO Not Given TID AJ Fentanyl 1 patch 08/21/18 13:00 08/24/18 14:36 Duragesic 25mcg Patch - TD 08/28/18 12:50 1 patch Q72H AJ Administration Heparin Sodium (Porcine) 5,000 unit 08/19/18 10:00 08/24/18 09:33 Heparin - SQ 5,000 unit BID AJ Administration IV Flush 10 ml 08/18/18 22:39 08/19/18 06:18 Vu-Cath Flush IVPUSH 10 ml PRN PRN Administration protocol, patency maintenance IV Flush 10 ml 08/22/18 13:46 Vu-Cath Flush IVPUSH PRN PRN FLUSH Piperacillin Sod/Tazobactam 50 mls @ 100 mls/hr 08/19/18 18:00 08/24/18 17:17 Sod 3.375 gm/ Dextrose IVPB 100 mls/hr Q8H-IV AJ Administration Protocol Miscellaneous 1 each 08/21/18 12:50 08/24/18 17:21 Duragesic Patch Waste MC 1 each PRN PRN Administration PAIN Morphine Sulfate 2 mg 08/20/18 17:02 08/24/18 05:32 Morphine Sulfate IVPUSH 2 mg Q3H PRN Administration PAIN LEVEL 6-10 Morphine Sulfate 4 mg 08/25/18 09:30 Morphine Sulfate IVPUSH DAILY@0930 AJ Pantoprazole Sodium 40 mg 08/17/18 10:00 08/24/18 09:33 Protonix - PO 40 mg DAILY AJ Administration Polyethylene Glycol 17 gm 08/19/18 10:00 08/24/18 09:34 Miralax (For Daily Use) - PO 17 grams DAILY AJ Administration Laboratory Results - last 24 hr 08/23/18 08/24/18 08/24/18 13:35 06:00 06:00 WBC 16.4 H RBC 2.93 L Hgb 8.4 L Hct 24.3 L MCV 82.7 MCH 28.5 MCHC 34.4 RDW 18.6 H Plt Count 169 D MPV 9.1 Absolute Neuts (auto) 14.9 H Neutrophils % 90.5 H Lymphocytes % 4.4 L D Monocytes % 4.8 Eosinophils % 0.2 Basophils % 0.1 Nucleated RBC % 0 Sodium 142 Potassium 4.0 Chloride 111 H Carbon Dioxide 18 L Anion Gap 13 BUN 68 H Creatinine 2.3 H Creat Clearance w eGFR 30.37 Random Glucose 80 Calcium 6.8 L* Phosphorus 3.7 Magnesium 2.7 H Total Bilirubin 1.8 H AST 39 H ALT 23 Alkaline Phosphatase 323 H Total Protein 4.1 L Albumin 0.9 L Blood Type O POSITIVE Antibody Screen Negative Crossmatch See Detail S1 S2 RRR Anorexic Lungs decreased Abd - soft, NT, Colostomy functioning Ext- left leg edema PLAN Sono legs negative for DVT Pelvic MRI noted-- increased size of sacral mass For RT tomorrow renal function worsening s/p PRBC- improved HCT iv fluids iv antibiotics on fentanyl patch and Morphine IV PRN palliative care evaluation Problem List - Problems (1) Intractable back pain Code(s): M54.9 - DORSALGIA, UNSPECIFIED (2) Metastatic colon cancer to liver Code(s): C18.9 - MALIGNANT NEOPLASM OF COLON, UNSPECIFIED; C78.7 - SECONDARY MALIG NEOPLASM OF LIVER AND INTRAHEPATIC BILE DUCT (3) Neuropathy Code(s): G62.9 - POLYNEUROPATHY, UNSPECIFIED (4) Sciatica of left side Code(s): M54.32 - SCIATICA, LEFT SIDE (5) Hypertension Code(s): I10 - ESSENTIAL (PRIMARY) HYPERTENSION
[2018-08-24] MEDS: HEPARIN NA (PORCINE) 5,000 UNITS/ML 1ML VIAL SQ SCH ×2 (09:33→21:48)
[2018-08-24] MEDS: CARVEDILOL 12.5 MG TABLET (FP) PO SCH ×2 (09:33→21:48)
[2018-08-24] MEDS: PANTOPRAZOLE 40 MG TABLET (FP) PO SCH (09:33)
[2018-08-24] MEDS: POLYETHYLENE GLYCOL 3350 119 GM BTL PO SCH (09:34)
[2018-08-24] MEDS ORDERED: SODIUM CHLORIDE 1,000 ML IV SCH (11:16)
[2018-08-24] MEDS: fentaNYL 25mcg/hr PATCH.TD72 TD SCH (14:36)
--- NOTE | 2018-08-24 16:49 | PN ---
Progress Note (short form) - Note Progress Note: PAtient seen and examined Left leg severe pain Last Vital Signs Temp Pulse Resp BP Pulse Ox 99.1 F 97 H 20 117/60 96 08/24/18 13:38 08/24/18 13:38 08/24/18 13:38 08/24/18 13:38 08/24/18 09:00 Cor: RSR, No murmurs, No gallops Lungs: Clear to P&A Abd: Soft, Normal bowel sounds, No organomegaly Ext:LLE edema Abnormal Lab Results 08/23/18 08/24/18 08/24/18 13:35 06:00 06:00 WBC 16.4 H RBC 2.93 L Hgb 8.4 L Hct 24.3 L RDW 18.6 H Absolute Neuts (auto) 14.9 H Neutrophils % 90.5 H Lymphocytes % 4.4 L D Chloride 111 H Carbon Dioxide 18 L BUN 68 H Creatinine 2.3 H Calcium 6.8 L* Magnesium 2.7 H Total Bilirubin 1.8 H AST 39 H Alkaline Phosphatase 323 H Total Protein 4.1 L Albumin 0.9 L Crossmatch See Detail Active Medications Generic Name Dose Route Start Last Admin Trade Name Freq PRN Reason Stop Dose Admin Acetaminophen 650 mg 08/23/18 14:35 08/23/18 15:53 Tylenol - PO 650 mg Q6H PRN Administration FEVER Carvedilol 12.5 mg 08/16/18 22:00 08/24/18 09:33 Coreg - PO 12.5 mg BID AJ Administration Docusate Sodium 100 mg 08/16/18 22:00 08/24/18 14:36 Colace - PO Not Given TID AJ Fentanyl 1 patch 08/21/18 13:00 08/24/18 14:36 Duragesic 25mcg Patch - TD 08/28/18 12:50 1 patch Q72H AJ Administration Heparin Sodium (Porcine) 5,000 unit 08/19/18 10:00 08/24/18 09:33 Heparin - SQ 5,000 unit BID AJ Administration IV Flush 10 ml 08/18/18 22:39 08/19/18 06:18 Vu-Cath Flush IVPUSH 10 ml PRN PRN Administration protocol, patency maintenance IV Flush 10 ml 08/22/18 13:46 Vu-Cath Flush IVPUSH PRN PRN FLUSH Piperacillin Sod/Tazobactam 50 mls @ 100 mls/hr 08/19/18 18:00 08/24/18 09:33 Sod 3.375 gm/ Dextrose IVPB 100 mls/hr Q8H-IV AJ Administration Protocol Miscellaneous 1 each 08/21/18 12:50 08/21/18 14:44 Duragesic Patch Waste MC 1 each PRN PRN Administration PAIN Morphine Sulfate 2 mg 08/20/18 17:02 08/24/18 05:32 Morphine Sulfate IVPUSH 2 mg Q3H PRN Administration PAIN LEVEL 6-10 Morphine Sulfate 4 mg 08/25/18 09:30 Morphine Sulfate IVPUSH DAILY@0930 AJ Pantoprazole Sodium 40 mg 08/17/18 10:00 08/24/18 09:33 Protonix - PO 40 mg DAILY AJ Administration Polyethylene Glycol 17 gm 08/19/18 10:00 08/24/18 09:34 Miralax (For Daily Use) - PO 17 grams DAILY AJ Administration A/P 48 y/o with metastatic rectal cancer BRAF mutated/KRAS wild type with liver/ lung mets, s/p surgery, ON FOLFOX/avastin, recent oxaliplatin neuropathy and had been on 5-FU/leucovorin/avastin, recent scans on 08/07 showing progressive disease, comes in with left leg severe pain of 1 week duration. MRI T/L spine show no cord compression Recurrent 6 cm pelvic mass encroaching sciatic foramen Discussed with rad-onc will plan on switching to irinotecan based regimen will consider palliative RT to presacral mass
[2018-08-24] MEDS: FENTANYL PATCH WASTE MC PRN (17:21)
[2018-08-24] MEDS: ACETAMINOPHEN 325 MG TABLET (FP) PO PRN (21:49)
[2018-08-25] MEDS ORDERED: PIPERACILLIN/TAZOBACTAM 3.375 GM VIAL IVPB ONE ×3 (00:51→17:20)
[2018-08-25] MEDS ORDERED: DEXTROSE 5%-WATER - 50 ML IVPB ONE ×3 (00:51→17:20)
[2018-08-25] MEDS: PIPERACILLIN/TAZOB 3.375 GM 3.375 GM in DEXTROSE 5%-WATER - 50 ML IVPB SCH ×3 (01:18→18:28)
[2018-08-25] MEDS: DOCUSATE SODIUM 100 MG CAPSULE (FP) PO SCH ×3 (05:46→22:59)
[2018-08-25 06:41] LABS: BASO % 0.2 % (0-2.0); EOS % 0.2 % (0-4.5); HEMATOCRIT 23.5 % (35.4-49); HEMOGLOBIN 8.1 GM/dL (11.7-16.9); LYMPH % 3.5 % (8-40); MCH 28.3 pg (25.7-33.7); MCHC 34.5 g/dl (32.0-35.9); MONO % 3.9 % (3.8-10.2); NEUT % 92.2 % (42.8-82.8); PLATELET COUNT 194 K/MM3 (134-434); RBC 2.86 M/mm3 (4.00-5.60); RDW 18.3 % (11.9-15.9); WHITE BLOOD COUNT 20.8 K/mm3 (4.0-10.0)
[2018-08-25 07:34] LABS: ALBUMIN 0.9 g/dl (3.4-5.0); ALK PHOS 316 U/L (45-117); ANION GAP 9 MMOL/L (8-16); BILIRUBIN,TOTAL 2.1 mg/dL (0.2-1); BLOOD UREA NITROGEN 68 mg/dL (7-18); CHLORIDE 108 mmol/L (98-107); CO2 20 mmol/L (21-32); CREATININE 2.3 mg/dL (0.55-1.3); GLUCOSE,RANDOM 70 mg/dL (74-106); MAGNESIUM 2.8 mg/dL (1.8-2.4); PHOSPHOROUS 3.7 mg/dL (2.5-4.9); POTASSIUM 4.1 mmol/L (3.5-5.1); SGOT/AST 54 U/L (15-37); SGPT/ALT 23 U/L (13-61); SODIUM 137 mmol/L (136-145); TOT PROT 4.2 g/dl (6.4-8.2)
[2018-08-25 07:38] LABS: CALCIUM 6.8 mg/dL (8.5-10.1)
[2018-08-25] MEDS: PANTOPRAZOLE 40 MG TABLET (FP) PO SCH (10:01)
[2018-08-25] MEDS: CARVEDILOL 12.5 MG TABLET (FP) PO SCH ×2 (10:01→23:03)
[2018-08-25] MEDS: HEPARIN NA (PORCINE) 5,000 UNITS/ML 1ML VIAL SQ SCH ×2 (10:01→23:03)
[2018-08-25] MEDS: morphine SULFATE 4 MG/ML VIAL IVPUSH SCH (10:02)
[2018-08-25] MEDS: POLYETHYLENE GLYCOL 3350 119 GM BTL PO SCH (10:02)
--- NOTE | 2018-08-25 10:10 | PN ---
Progress Note (short form) - Note Progress Note: Radiation Oncology Pain exacerbated with movement. Less confused but perseverates. MRI pelvis reviewed: presacral mass involving sacral foramina and encasing nerve roots S1-4, with possible muscle invasion. BCx+ anaerobic GNR - on Abx. Plan to begin palliative RT today. Will need analgesic premedication utilization review coordinator to RT. Cont pain mgt. Chemo per med onc.
[2018-08-25] MEDS: ACETAMINOPHEN 325 MG TABLET (FP) PO PRN (10:31)
--- NOTE | 2018-08-25 11:09 | PN ---
Progress Note (short form) - Note Progress Note: pt seen/ examined chart reviewed for palliative rt today continue to have pain afebrile Vital Signs Temp 101.2 F H 08/25/18 10:00 Pulse 105 H 08/25/18 10:00 Resp 20 08/25/18 10:00 BP 107/93 08/25/18 10:00 Pulse Ox 96 08/24/18 21:00 Intake & Output 08/24/18 08/24/18 08/25/18 11:59 23:59 11:59 Intake Total 1180 1400 1050 Output Total 1000 Balance 0758 989 5553 Intake: IV 530 950 900 Normal Saline - 1,000 ml 530 @ 75 mls/hr IV ASDIR [facility] Rx#:[id number] saline lock 950 900 IVPB 50 100 50 Oral 250 350 100 Packed Cells 350 Output: Urine 1000 Mancia 1000 Other: Voiding Method Urinal Indwelling Catheter Indwelling Catheter Bowel Movement Yes Active Medications Acetaminophen (Tylenol -) 650 mg PO Q6H PRN PRN Reason: FEVER Last Admin: 08/25/18 10:31 Dose: 650 mg Carvedilol (Coreg -) 12.5 mg PO BID [facility] Last Admin: 08/25/18 10:01 Dose: 12.5 mg Docusate Sodium (Colace -) 100 mg PO TID [facility] Last Admin: 08/25/18 05:46 Dose: 100 mg Fentanyl (Duragesic 25mcg Patch -) 1 patch TD Q72H [facility] Stop: 08/28/18 12:50 Last Admin: 08/24/18 14:36 Dose: 1 patch Heparin Sodium (Porcine) (Heparin -) 5,000 unit SQ BID [facility] Last Admin: 08/25/18 10:01 Dose: 5,000 unit IV Flush (Vu-Cath Flush) 10 ml IVPUSH PRN PRN PRN Reason: protocol, patency maintenance Last Admin: 08/19/18 06:18 Dose: 10 ml IV Flush (Vu-Cath Flush) 10 ml IVPUSH PRN PRN PRN Reason: FLUSH Piperacillin Sod/Tazobactam (Sod 3.375 gm/ Dextrose) 50 mls @ 100 mls/hr IVPB Q8H-IV AJ; Protocol Last Admin: 08/25/18 10:01 Dose: 100 mls/hr Miscellaneous (Duragesic Patch Waste) 1 each MC PRN PRN PRN Reason: PAIN Last Admin: 08/24/18 17:21 Dose: 1 each Morphine Sulfate (Morphine Sulfate) 2 mg IVPUSH Q3H PRN PRN Reason: PAIN LEVEL 6-10 Last Admin: 08/24/18 05:32 Dose: 2 mg Morphine Sulfate (Morphine Sulfate) 4 mg IVPUSH DAILY@0930 [facility] Last Admin: 08/25/18 10:02 Dose: 4 mg Pantoprazole Sodium (Protonix -) 40 mg PO DAILY [facility] Last Admin: 08/25/18 10:01 Dose: 40 mg Polyethylene Glycol (Miralax (For Daily Use) -) 17 gm PO DAILY [facility] Last Admin: 08/25/18 10:02 Dose: 17 grams CBC, BMP 08/25/18 06:00 08/25/18 06:00 Microbiology 08/18/18 21:00 Blood Culture - Preliminary Blood - Vu Cath Anaerobic Gram Neg Bacilli 08/18/18 21:00 Blood Culture - Preliminary Blood - Vu Cath Anaerobic Cocci Anaerobic Gram Neg Bacilli 08/19/18 13:30 Blood Culture - Final Blood - Central Line NO GROWTH AFTER 5 DAYS INCUBATION 08/19/18 12:41 Blood Culture - Final Blood - Peripheral Venous NO GROWTH AFTER 5 DAYS INCUBATION Physical Exam. awake/ no distress. Anorexic Lungs decreased at bases cvs- s1, s2 rrr Abd - soft, NT, Colostomy + Ext- left leg edema. PLAN Pain control Sono legs negative for DVT Pelvic MRI noted-- increased size of sacral mass For RT today iv fluids iv antibiotics on fentanyl patch and Morphine IV PRN monitor labs palliative care evaluation . will follow discussed with nursing staff also Problem List - Problems (1) Intractable back pain Code(s): M54.9 - DORSALGIA, UNSPECIFIED (2) Metastatic colon cancer to liver Code(s): C18.9 - MALIGNANT NEOPLASM OF COLON, UNSPECIFIED; C78.7 - SECONDARY MALIG NEOPLASM OF LIVER AND INTRAHEPATIC BILE DUCT (3) Neuropathy Code(s): G62.9 - POLYNEUROPATHY, UNSPECIFIED (4) Sciatica of left side Code(s): M54.32 - SCIATICA, LEFT SIDE (5) Hypertension Code(s): I10 - ESSENTIAL (PRIMARY) HYPERTENSION Problem List - Problems (1) Neuropathy Code(s): G62.9 - POLYNEUROPATHY, UNSPECIFIED (2) Sciatica of left side Code(s): M54.32 - SCIATICA, LEFT SIDE (3) Adenocarcinoma Code(s): C80.1 - MALIGNANT (PRIMARY) NEOPLASM, UNSPECIFIED (4) Hypertension Code(s): I10 - ESSENTIAL (PRIMARY) HYPERTENSION (5) Old cerebrovascular accident (CVA) without late effect Code(s): Z86.73 - PRSNL HX OF TIA (TIA), AND CEREB INFRC W/O RESID DEFICITS
--- NOTE | 2018-08-25 11:16 | PN ---
Progress Note, Physician History of Present Illness: Awake, alert No focal complaint at present Fever 101 this am No c/o chills WBC increased 20K BC polymicrobial MRI pelvis shows increased perirectal ST mass + fluid collection ? abscesses Repeat BC no growth - Current Medication List Current Medications: Active Medications Acetaminophen (Tylenol -) 650 mg PO Q6H PRN PRN Reason: FEVER Last Admin: 08/25/18 10:31 Dose: 650 mg Carvedilol (Coreg -) 12.5 mg PO BID [facility]CLUDES [facility] Last Admin: 08/25/18 10:01 Dose: 12.5 mg Docusate Sodium (Colace -) 100 mg PO TID [facility]CLUDES [facility] Last Admin: 08/25/18 05:46 Dose: 100 mg Fentanyl (Duragesic 25mcg Patch -) 1 patch TD Q72H [facility]CLUD[facility] Stop: 08/28/18 12:50 Last Admin: 08/24/18 14:36 Dose: 1 patch Heparin Sodium (Porcine) (Heparin -) 5,000 unit SQ BID [facility] Last Admin: 08/25/18 10:01 Dose: 5,000 unit IV Flush (Vu-Cath Flush) 10 ml IVPUSH PRN PRN PRN Reason: protocol, patency maintenance Last Admin: 08/19/18 06:18 Dose: 10 ml IV Flush (Vu-Cath Flush) 10 ml IVPUSH PRN PRN PRN Reason: FLUSH Piperacillin Sod/Tazobactam (Sod 3.375 gm/ Dextrose) 50 mls @ 100 mls/hr IVPB Q8H-IV AJ; Protocol Last Admin: 08/25/18 10:01 Dose: 100 mls/hr Miscellaneous (Duragesic Patch Waste) 1 each MC PRN PRN PRN Reason: PAIN Last Admin: 08/24/18 17:21 Dose: 1 each Morphine Sulfate (Morphine Sulfate) 2 mg IVPUSH Q3H PRN PRN Reason: PAIN LEVEL 6-10 Last Admin: 08/24/18 05:32 Dose: 2 mg Morphine Sulfate (Morphine Sulfate) 4 mg IVPUSH DAILY@0930 [facility] Last Admin: 08/25/18 10:02 Dose: 4 mg Pantoprazole Sodium (Protonix -) 40 mg PO DAILY [facility]CLUD[facility] Last Admin: 08/25/18 10:01 Dose: 40 mg Polyethylene Glycol (Miralax (For Daily Use) -) 17 gm PO DAILY AJ Last Admin: 08/25/18 10:02 Dose: 17 grams - Objective Vital Signs: Vital Signs Temperature 101.2 F H 08/25/18 10:00 Pulse Rate 105 H 08/25/18 10:00 Respiratory Rate 20 08/25/18 10:00 Blood Pressure 107/93 08/25/18 10:00 O2 Sat by Pulse Oximetry (%) 96 08/24/18 21:00 Constitutional: Yes: No Distress Eyes: Yes: Conjunctiva Clear Cardiovascular: Yes: Regular Rate and Rhythm, S1, S2 Respiratory: Yes: CTA Bilaterally Gastrointestinal: Yes: Normal Bowel Sounds, Soft, Other (+ostomy). No: Tenderness Edema: Yes Labs: CBC, BMP 08/25/18 06:00 08/25/18 06:00 Assessment/Plan Polymicrobial bactermia, likely GI source ? pelvic abscesses Metastatic ca Azotemia Continue zosyn Will review MRI with radiologist
[2018-08-25 11:25] LABS: ACANTHOCYTES 1+; ANISOCYTOSIS 2+; MACROCYTOSIS 0; OVALOCYTE 1+; PLATELET ESTIMATE NORMAL; TEAR DROP CELLS 1+
--- NOTE | 2018-08-25 14:12 | PN ---
Progress Note, Physician Chief Complaint: The patient seen and examined in his room. On bed. Denies any chest pains. Somewhat lethargic. Oral food intake poor. Says he wants only the soup. History of Present Illness: 48 yrs old male - colon ca- mets to liver and lungs-s/p colostomy- now on chemotherapy- H/o Hypertension, Wt loss. Admitted with intractable back pain radiating to left lower extremity.Unable to move, sit up or stand due to pain Denies injuries - Current Medication List Current Medications: Active Medications Acetaminophen (Tylenol -) 650 mg PO Q6H PRN PRN Reason: FEVER Last Admin: 08/25/18 10:31 Dose: 650 mg Carvedilol (Coreg -) 12.5 mg PO BID [facility] Last Admin: 08/25/18 10:01 Dose: 12.5 mg Docusate Sodium (Colace -) 100 mg PO TID [facility] Last Admin: 08/25/18 05:46 Dose: 100 mg Fentanyl (Duragesic 25mcg Patch -) 1 patch TD Q72H [facility] Stop: 08/28/18 12:50 Last Admin: 08/24/18 14:36 Dose: 1 patch Heparin Sodium (Porcine) (Heparin -) 5,000 unit SQ BID [facility] Last Admin: 08/25/18 10:01 Dose: 5,000 unit IV Flush (Vu-Cath Flush) 10 ml IVPUSH PRN PRN PRN Reason: protocol, patency maintenance Last Admin: 08/19/18 06:18 Dose: 10 ml IV Flush (Vu-Cath Flush) 10 ml IVPUSH PRN PRN PRN Reason: FLUSH Piperacillin Sod/Tazobactam (Sod 3.375 gm/ Dextrose) 50 mls @ 100 mls/hr IVPB Q8H-IV AJ; Protocol Last Admin: 08/25/18 10:01 Dose: 100 mls/hr Miscellaneous (Duragesic Patch Waste) 1 each MC PRN PRN PRN Reason: PAIN Last Admin: 08/24/18 17:21 Dose: 1 each Morphine Sulfate (Morphine Sulfate) 2 mg IVPUSH Q3H PRN PRN Reason: PAIN LEVEL 6-10 Last Admin: 08/24/18 05:32 Dose: 2 mg Morphine Sulfate (Morphine Sulfate) 4 mg IVPUSH DAILY@0930 [facility] Last Admin: 08/25/18 10:02 Dose: 4 mg Pantoprazole Sodium (Protonix -) 40 mg PO DAILY [facility] Last Admin: 08/25/18 10:01 Dose: 40 mg Polyethylene Glycol (Miralax (For Daily Use) -) 17 gm PO DAILY [facility] Last Admin: 08/25/18 10:02 Dose: 17 grams - Objective Vital Signs: Vital Signs Temperature 101.2 F H 08/25/18 10:00 Pulse Rate 105 H 08/25/18 10:00 Respiratory Rate 20 08/25/18 10:00 Blood Pressure 107/93 08/25/18 10:00 O2 Sat by Pulse Oximetry (%) 100 08/25/18 09:00 Constitutional: Yes: Anxious, Moderate Distress HENT: Yes: Atraumatic Neck: Yes: Trachea Midline Cardiovascular: Yes: Regular Rate and Rhythm Respiratory: Yes: CTA Bilaterally, Diminished Gastrointestinal: Yes: Normal Bowel Sounds, Soft Genitourinary: No: Bladder Distention, CVA Tenderness - Left, CVA Tenderness - Right Musculoskeletal: Yes: Back Pain, Joint Stiffness, Joint Swelling Labs: CBC, BMP 08/25/18 06:00 08/25/18 06:00 Assessment/Plan 48 yrs old male with h/o Ca colon with mets to liver and lungs-s/p colostomy- now on chemotherapy- admitted with intractable back pain radiating to left lower extremity for a couple of days The patient in severe pain. Good urine output reported. ISMAEL...most likely due to reduced Renal perfusion. The Renal functions are progressively worsening. The BP tends to be running low. Off ARB. Renal functions tending to stabilize. But no definite improvement seen yet. Thank you. Will follow with you. Arlene Cintron MD
[2018-08-25] MEDS ORDERED: SODIUM CHLORIDE 0.9% 1000 ML INFUS.BAG IV SCH (14:30)
[2018-08-25] MEDS: SODIUM CHLORIDE 1,000 ML IV SCH (15:43)
--- NOTE | 2018-08-25 16:20 | PN ---
Progress Note (short form) - Note Progress Note: PROGRESS NOTE FOR HEMATOLOGY/ONCOLOGY Patient seen and examined by me at bedside. Patient s/p RT today Reports left leg pain but better after the RT today but is still experiencing some pain Otherwise, denies any fever, chills, nausea, vomiting, abdominal pain, chest pain, palpitations, shortness of breath Vital Signs Temperature 97.9 F 08/25/18 15:22 Pulse Rate 106 H 08/25/18 15:22 Respiratory Rate 20 08/25/18 15:22 Blood Pressure 121/82 08/25/18 15:22 O2 Sat by Pulse Oximetry (%) 100 08/25/18 09:00 PHYSICAL EXAMINATION GENERAL: Awake and more alert today. No acute distress EYES: conjunctiva clear. ENT: Moist mucous membranes LUNGS: Diminished breath sounds bilaterally with no crackles or wheezes HEART: RRR, normal S1 and S2 ABDOMEN: Soft, nontender, not distended, normoactive bowel sounds. Colostomy bag in place EXTREMITIES: 1+ pitting edema bilaterally Laboratory Tests 08/25/18 06:00 08/25/18 06:00 08/25/18 06:00 Calcium 6.8 L* Phosphorus 3.7 Magnesium 2.8 H Total Bilirubin 2.1 H AST 54 H ALT 23 Alkaline Phosphatase 316 H Total Protein 4.2 L Albumin 0.9 L ASSESSMENT AND PLAN: Patient is a 48 year old male with metastatic rectal cancer with mets to the liver and lungs on 5-FU/Leucovorin who presented with severe left leg pain for > 1 weeks. Patient found to have sepsis and admitted for further monitoring and management. Problem List: Metastatic Rectal Cancer with perirectal mass extending through sciatic notch and into piriformis muscle. HTN ISMAEL PLAN: -Patient had RT today with improvement of leg pain -Continue current pain management -IV Abx, as per ID
--- NOTE | 2018-08-25 18:42 | CONSULT ---
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: CVA (with dizziness and LLE paresis about 1 year ago which resolved at [facility] [place] Cardio/Vascular: Yes: HTN, Hyperlipdemia Gastrointestinal: Yes: Cancer, Constipation - Past Surgical History Past Surgical History: Yes: Colostomy - Alcohol/Substance Use Hx Alcohol Use: No History of Substance Use: reports: None - Smoking History Smoking history: Never smoked Have you smoked in the past 12 months: No - Social History Usual Living Arrangement: With Spouse ADL: Independent 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 History of Recent Travel: No Home Medications - Allergies Allergies/Adverse Reactions: Allergies Allergy/AdvReac Type Severity Reaction Status Date / Time shellfish derived Allergy Verified 08/16/18 05:16 - Home Medications Home Medications: Ambulatory Orders Losartan/Hydrochlorothiazide [Hyzaar 100-25 Tablet] 1 each PO DAILY #14 tablet 11/18/14 Carvedilol [Coreg -] 12.5 mg PO BID #28 tablet 09/18/16 Acetaminophen [Tylenol .Regular Strength -] 650 mg PO Q4H PRN tablet 10/29/17 Family Disease History - Family Disease History Family Disease History: CA: Sister ( ovarian cancer in her 30s), Other: Father (CVA, HTN, colon polyps ), Mother (HTN, no polyps on colonoscopy) Review of Systems - Review of Systems Constitutional: reports: Weakness Eyes: reports: No Symptoms HENT: reports: No Symptoms Neck: reports: Pain on Movement Gastrointestinal: reports: Other (colostomy) Genitourinary: reports: Other (Catheter) Musculoskeletal: reports: Extremity Pain (Left leg swelling), Muscle Pain, Other Neurological: reports: No Symptoms Psychiatric: reports: No Symptoms Pain Intensity: 10 Physical Exam Vital Signs: Vital Signs Temperature 97.9 F 08/25/18 15:22 Pulse Rate 106 H 08/25/18 15:22 Respiratory Rate 20 08/25/18 15:22 Blood Pressure 121/82 08/25/18 15:22 O2 Sat by Pulse Oximetry (%) 100 08/25/18 09:00 Constitutional: Yes: Anxious Eyes: Yes: WNL HENT: Yes: WNL Neck: Yes: WNL Gastrointestinal: Yes: Other (colonostomy bag) Edema: Yes Neurological: Yes: WNL Labs: CBC, BMP 08/25/18 06:00 08/25/18 06:00 Current Medications Acetaminophen (Tylenol -) 650 mg PO Q6H PRN PRN Reason: FEVER Last Admin: 08/25/18 10:31 Dose: 650 mg Carvedilol (Coreg -) 12.5 mg PO BID [facility] Last Admin: 08/25/18 10:01 Dose: 12.5 mg Docusate Sodium (Colace -) 100 mg PO TID [facility] Last Admin: 08/25/18 14:27 Dose: Not Given Fentanyl (Duragesic 25mcg Patch -) 1 patch TD Q72H [facility] Stop: 08/28/18 12:50 Last Admin: 08/24/18 14:36 Dose: 1 patch Heparin Sodium (Porcine) (Heparin -) 5,000 unit SQ BID [facility] Last Admin: 08/25/18 10:01 Dose: 5,000 unit IV Flush (Vu-Cath Flush) 10 ml IVPUSH PRN PRN PRN Reason: protocol, patency maintenance Last Admin: 08/19/18 06:18 Dose: 10 ml IV Flush (Vu-Cath Flush) 10 ml IVPUSH PRN PRN PRN Reason: FLUSH Piperacillin Sod/Tazobactam (Sod 3.375 gm/ Dextrose) 50 mls @ 100 mls/hr IVPB Q8H-IV AJ; Protocol Last Admin: 08/25/18 18:28 Dose: 100 mls/hr Sodium Chloride (Normal Saline -) 1,000 mls @ 125 mls/hr IV ASDIR [facility] Last Admin: 08/25/18 15:43 Dose: 125 mls/hr Miscellaneous (Duragesic Patch Waste) 1 each MC PRN PRN PRN Reason: PAIN Last Admin: 08/24/18 17:21 Dose: 1 each Morphine Sulfate (Morphine Sulfate) 2 mg IVPUSH Q3H PRN PRN Reason: PAIN LEVEL 6-10 Last Admin: 08/24/18 05:32 Dose: 2 mg Morphine Sulfate (Morphine Sulfate) 4 mg IVPUSH DAILY@0930 [facility] Last Admin: 08/25/18 10:02 Dose: 4 mg Pantoprazole Sodium (Protonix -) 40 mg PO DAILY [facility] Last Admin: 08/25/18 10:01 Dose: 40 mg Polyethylene Glycol (Miralax (For Daily Use) -) 17 gm PO DAILY [facility] Last Admin: 08/25/18 10:02 Dose: 17 grams Problem List - Problems (1) Neoplasm related pain Code(s): G89.3 - NEOPLASM RELATED PAIN (ACUTE) (CHRONIC) Assessment/Plan Discuss in detail and answered all his questions . 1. Continue current care 2. Lyrica 25 mg PO TID 3. Bed Mobility frequently to avoid bedsore. 4. Please call me if pain is not controlled. Thanks for alloing me to participate in his care .
--- NOTE | 2018-08-25 18:59 | PN ---
Progress Note (short form) - Note Progress Note: PAtient seen and examined Left leg pain AFVSS Cor: RSR, No murmurs, No gallops Lungs: Clear to P&A Abd: Soft, Normal bowel sounds, No organomegaly Ext:LLE edema Labs/Meds reviewed A/P 48 y/o with metastatic rectal cancer BRAF mutated/KRAS wild type with liver/ lung mets, s/p surgery, ON FOLFOX/avastin, recent oxaliplatin neuropathy and had been on 5-FU/leucovorin/avastin, recent scans on 08/07 showing progressive disease, comes in with left leg severe pain of 1 week duration. MRI T/L spine show no cord compression Recurrent 6 cm pelvic mass encroaching sciatic foramen satrted RT Pain medication prior to RT Acute renal failure- f/u renal recommendations
[2018-08-25] MEDS ORDERED: PREGABALIN 25 MG CAPSULE PO SCH (22:00)
[2018-08-26] MEDS ORDERED: DEXTROSE 5%-WATER - 50 ML IVPB ONE ×3 (01:04→17:52)
[2018-08-26] MEDS ORDERED: PIPERACILLIN/TAZOBACTAM 3.375 GM VIAL IVPB ONE ×3 (01:04→17:52)
[2018-08-26] MEDS: PIPERACILLIN/TAZOB 3.375 GM 3.375 GM in DEXTROSE 5%-WATER - 50 ML IVPB SCH ×3 (02:01→17:55)
[2018-08-26] MEDS: DOCUSATE SODIUM 100 MG CAPSULE (FP) PO SCH ×3 (05:11→22:37)
[2018-08-26 07:10] LABS: BASO % 0.2 % (0-2.0); EOS % 0.1 % (0-4.5); HEMATOCRIT 22.4 % (35.4-49); HEMOGLOBIN 7.2 GM/dL (11.7-16.9); LYMPH % 2.2 % (8-40); MCH 26.8 pg (25.7-33.7); MCHC 32.3 g/dl (32.0-35.9); MEAN PLT VOLUME 8.5 fl (7.5-11.1); MONO % 2.5 % (3.8-10.2); PLATELET COUNT 219 K/MM3 (134-434); WHITE BLOOD COUNT 22.9 K/mm3 (4.0-10.0)
[2018-08-26 07:32] LABS: ALBUMIN 0.8 g/dl (3.4-5.0); ALK PHOS 274 U/L (45-117); ANION GAP 11 MMOL/L (8-16); BLOOD UREA NITROGEN 79 mg/dL (7-18); CHLORIDE 108 mmol/L (98-107); CO2 18 mmol/L (21-32); CREATININE 2.9 mg/dL (0.55-1.3); GLUCOSE,RANDOM 82 mg/dL (74-106); POTASSIUM 4.4 mmol/L (3.5-5.1); SGOT/AST 46 U/L (15-37); SGPT/ALT 22 U/L (13-61); SODIUM 137 mmol/L (136-145); TOT PROT 4.1 g/dl (6.4-8.2)
[2018-08-26 07:39] LABS: CALCIUM 6.8 mg/dL (8.5-10.1)
[2018-08-26] MEDS: PANTOPRAZOLE 40 MG TABLET (FP) PO SCH (09:07)
[2018-08-26] MEDS: CARVEDILOL 12.5 MG TABLET (FP) PO SCH ×2 (09:07→22:38)
[2018-08-26] MEDS: morphine SULFATE 4 MG/ML VIAL IVPUSH SCH (10:09)
[2018-08-26] MEDS: POLYETHYLENE GLYCOL 3350 119 GM BTL PO SCH (10:10)
[2018-08-26 10:30] LABS: ACANTHOCYTES 0; ANISOCYTOSIS 0; HELMET CELLS 0; HOWELL-JOLLY BODIES 0; MACROCYTOSIS 0; OVALOCYTE 0; PLATELET ESTIMATE NORMAL; ROULEAU 0; SICKELED CELLS 0; TARGET CELLS 0; TEAR DROP CELLS 0; TOXIC GRANULATION 0
--- NOTE | 2018-08-26 11:02 | PN ---
Progress Note (short form) - Note Progress Note: Renal follow up for ISMAEL Pt seen and examined at the bedside awake and alert no acute complaints no sob, cp, abd pain, N/V/D making urine via gilmore Vital Signs Temperature 98.5 F 08/26/18 06:00 Pulse Rate 100 H 08/26/18 06:00 Respiratory Rate 18 08/26/18 06:00 Blood Pressure 129/75 08/26/18 06:00 O2 Sat by Pulse Oximetry (%) 99 08/25/18 21:00 Intake & Output 08/23/18 08/24/18 08/25/18 08/26/18 23:59 23:59 23:59 23:59 Intake Total 1450 2580 3650 1025 Output Total 401 1000 2401 600 Balance 1049 1580 1249 425 NAD awake and alert CTA soft NT.ND gilmore in place CBC, BMP 08/26/18 06:00 08/26/18 06:00 Laboratory Tests 08/26/18 06:00 Calcium 6.8 L* Albumin 0.8 L Current Medications Acetaminophen (Tylenol -) 650 mg PO Q6H PRN PRN Reason: FEVER Last Admin: 08/25/18 10:31 Dose: 650 mg Carvedilol (Coreg -) 12.5 mg PO BID [facility] Last Admin: 08/26/18 09:07 Dose: 12.5 mg Docusate Sodium (Colace -) 100 mg PO TID [facility] Last Admin: 08/26/18 05:11 Dose: Not Given Fentanyl (Duragesic 25mcg Patch -) 1 patch TD Q72H [facility] Stop: 08/28/18 12:50 Last Admin: 08/24/18 14:36 Dose: 1 patch IV Flush (Vu-Cath Flush) 10 ml IVPUSH PRN PRN PRN Reason: protocol, patency maintenance Last Admin: 08/19/18 06:18 Dose: 10 ml IV Flush (Vu-Cath Flush) 10 ml IVPUSH PRN PRN PRN Reason: FLUSH Piperacillin Sod/Tazobactam (Sod 3.375 gm/ Dextrose) 50 mls @ 100 mls/hr IVPB Q8H-IV AJ; Protocol Last Admin: 08/26/18 09:07 Dose: 100 mls/hr Sodium Chloride (Normal Saline -) 1,000 mls @ 125 mls/hr IV ASDIR [facility] Last Admin: 08/25/18 15:43 Dose: 125 mls/hr Miscellaneous (Duragesic Patch Waste) 1 each MC PRN PRN PRN Reason: PAIN Last Admin: 08/24/18 17:21 Dose: 1 each Morphine Sulfate (Morphine Sulfate) 2 mg IVPUSH Q3H PRN PRN Reason: PAIN LEVEL 6-10 Last Admin: 08/24/18 05:32 Dose: 2 mg Morphine Sulfate (Morphine Sulfate) 4 mg IVPUSH DAILY@0930 [facility] Last Admin: 08/26/18 10:09 Dose: 4 mg Pantoprazole Sodium (Protonix -) 40 mg PO DAILY [facility] Last Admin: 08/26/18 09:07 Dose: 40 mg Polyethylene Glycol (Miralax (For Daily Use) -) 17 gm PO DAILY [facility] Last Admin: 08/26/18 10:10 Dose: 17 grams 48 year old gentleman with hx of Colon Ca on Chemo, Hypertension, CVA who presented with severe back pain and noted to develop ISMAEL during the hospital course. #ISMAEL likely secondary to renal hypoprofuisonin setting of ARB/HCTZ +/- urinary retention (urine Na very low indicating preserved tubular function, bladder scan PVR ~200cc, no hydronephrosis seen on US) #Anion gap metabolic acidosis Renal function with progressive worsening however pt is non-oliguric and electrolytes are WNL repeat urine studies still show bland UA and low urine na indicating preserved tubular function continue isotonic saline PRBC transfusion as per Heme Trend renal function and electrolytes maintain gilmore for now no indication for NIGHT SHIFT Sami Pulido DO
--- NOTE | 2018-08-26 12:04 | PN ---
Progress Note (short form) - Note Progress Note: more alert today pain in leg left Vital Signs - 24 hr 08/25/18 08/25/18 08/25/18 15:22 18:00 21:00 Temperature 97.9 F 98.4 F Temperature [ Prior to transport] Temperature [ Return from therapy] Pulse Rate 106 H 98 H Pulse Rate [ Prior to transport] Pulse Rate [ Return from therapy] Respiratory 20 18 Rate Respiratory Rate [Prior to transport] Respiratory Rate [Return from therapy] Blood Pressure 121/82 118/82 Blood Pressure [Prior to transport] Blood Pressure [Return from therapy] O2 Sat by Pulse 99 Oximetry (%) 08/25/18 08/26/18 08/26/18 22:00 06:00 09:00 Temperature 98.0 F 98.5 F Temperature [ Prior to transport] Temperature [ Return from therapy] Pulse Rate 96 H 100 H Pulse Rate [ Prior to transport] Pulse Rate [ Return from therapy] Respiratory 18 18 18 Rate Respiratory Rate [Prior to transport] Respiratory Rate [Return from therapy] Blood Pressure 120/85 129/75 Blood Pressure [Prior to transport] Blood Pressure [Return from therapy] O2 Sat by Pulse 98 Oximetry (%) 08/26/18 10:00 Temperature Temperature [ 98.5 F Prior to transport] Temperature [ 98.2 F Return from therapy] Pulse Rate 93 H Pulse Rate [ 91 H Prior to transport] Pulse Rate [ 93 H Return from therapy] Respiratory 18 Rate Respiratory 20 Rate [Prior to transport] Respiratory 20 Rate [Return from therapy] Blood Pressure 113/68 Blood Pressure 100/72 [Prior to transport] Blood Pressure 113/68 [Return from therapy] O2 Sat by Pulse Oximetry (%) Current Medications Generic Name Dose Route Start Last Admin Trade Name Freq PRN Reason Stop Dose Admin Acetaminophen 650 mg 08/23/18 14:35 08/25/18 10:31 Tylenol - PO 650 mg Q6H PRN Administration FEVER Carvedilol 12.5 mg 08/16/18 22:00 08/26/18 09:07 Coreg - PO 12.5 mg BID AJ Administration Docusate Sodium 100 mg 08/16/18 22:00 08/26/18 05:11 Colace - PO Not Given TID AJ Fentanyl 1 patch 08/21/18 13:00 08/24/18 14:36 Duragesic 25mcg Patch - TD 08/28/18 12:50 1 patch Q72H AJ Administration IV Flush 10 ml 08/18/18 22:39 08/19/18 06:18 Vu-Cath Flush IVPUSH 10 ml PRN PRN Administration protocol, patency maintenance IV Flush 10 ml 08/22/18 13:46 Vu-Cath Flush IVPUSH PRN PRN FLUSH Piperacillin Sod/Tazobactam 50 mls @ 100 mls/hr 08/19/18 18:00 08/26/18 09:07 Sod 3.375 gm/ Dextrose IVPB 100 mls/hr Q8H-IV AJ Administration Protocol Sodium Chloride 1,000 mls @ 125 mls/hr 08/25/18 14:45 08/25/18 15:43 Normal Saline - IV 125 mls/hr ASDIR AJ Administration Miscellaneous 1 each 08/21/18 12:50 08/24/18 17:21 Duragesic Patch Waste MC 1 each PRN PRN Administration PAIN Morphine Sulfate 2 mg 08/20/18 17:02 08/24/18 05:32 Morphine Sulfate IVPUSH 2 mg Q3H PRN Administration PAIN LEVEL 6-10 Morphine Sulfate 4 mg 08/25/18 09:30 08/26/18 10:09 Morphine Sulfate IVPUSH 4 mg DAILY@0930 AJ Administration Pantoprazole Sodium 40 mg 08/17/18 10:00 08/26/18 09:07 Protonix - PO 40 mg DAILY AJ Administration Polyethylene Glycol 17 gm 08/19/18 10:00 08/26/18 10:10 Miralax (For Daily Use) - PO 17 grams DAILY AJ Administration Laboratory Results - last 24 hr 08/23/18 08/25/18 08/26/18 13:35 06:00 06:00 WBC 22.9 H RBC 2.70 L Hgb 7.2 L Hct 22.4 L MCV 83.0 MCH 26.8 MCHC 32.3 RDW 19.0 H Plt Count 219 MPV 8.5 Absolute Neuts (auto) 21.8 H Neutrophils % 95.0 H Neutrophils % (Manual) 77.3 94.0 H D Band Neutrophils % 14.5 3.0 Lymphocytes % 2.2 L D Lymphocytes % (Manual) 3.1 L 1.0 L D Monocytes % 2.5 L Monocytes % (Manual) 1 L 2 L D Eosinophils % 0.1 Eosinophils % (Manual) 0.0 0.0 Basophils % 0.2 Basophils % (Manual) 0.0 0.0 Myelocytes % (Man) 1 0 D Promyelocytes % (Man) 0 0 Blast Cells % (Manual) 0 0 Nucleated RBC % 0 Metamyelocytes 2 D 0 D Hypochromia 0 0 Toxic Granulation 0 Dohle Bodies 0 Platelet Estimate Normal Normal Platelet Comment Present Polychromasia 1+ 0 Poikilocytosis 0 0 Basophilic Stippling 0 Anisocytosis 2+ 0 Microcytosis 2+ 0 Macrocytosis 0 0 Spherocytes 1+ 0 Sickle Cells 0 Target Cells 0 Tear Drop Cells 1+ 0 Ovalocytes 1+ 0 Stomatocytes 0 Helmet Cells 0 [place] Bodies 0 Essie Rings 0 [place] Cells 1+ 0 Acanthocytes (Spur) 1+ 0 Rouleaux 0 Fragmented RBCs 0 Schistocytes 0 Sodium Potassium Chloride Carbon Dioxide Anion Gap BUN Creatinine Creat Clearance w eGFR Random Glucose Calcium Total Bilirubin AST ALT Alkaline Phosphatase Total Protein Albumin Crossmatch See Detail 08/26/18 06:00 WBC RBC Hgb Hct MCV MCH MCHC RDW Plt Count MPV Absolute Neuts (auto) Neutrophils % Neutrophils % (Manual) Band Neutrophils % Lymphocytes % Lymphocytes % (Manual) Monocytes % Monocytes % (Manual) Eosinophils % Eosinophils % (Manual) Basophils % Basophils % (Manual) Myelocytes % (Man) Promyelocytes % (Man) Blast Cells % (Manual) Nucleated RBC % Metamyelocytes Hypochromia Toxic Granulation Dohle Bodies Platelet Estimate Platelet Comment Polychromasia Poikilocytosis Basophilic Stippling Anisocytosis Microcytosis Macrocytosis Spherocytes Sickle Cells Target Cells Tear Drop Cells Ovalocytes Stomatocytes Helmet Cells [place] Bodies Essie Rings Antonio Cells Acanthocytes (Spur) Rouleaux Fragmented RBCs Schistocytes Sodium 137 Potassium 4.4 Chloride 108 H Carbon Dioxide 18 L Anion Gap 11 BUN 79 H Creatinine 2.9 H Creat Clearance w eGFR 23.24 Random Glucose 82 Calcium 6.8 L* Total Bilirubin 2.0 H AST 46 H ALT 22 Alkaline Phosphatase 274 H Total Protein 4.1 L Albumin 0.8 L Crossmatch S1 S2 RRR Anorexic Lungs decreased Abd - soft, NT, Colostomy functioning Ext- left leg edema PLAN Sono legs negative for DVT Pelvic MRI noted-- increased size of sacral mass For RT renal function worsening transfuse PRBC iv fluids iv antibiotics on fentanyl patch and Morphine IV PRN palliative care evaluation Problem List - Problems (1) Intractable back pain Code(s): M54.9 - DORSALGIA, UNSPECIFIED (2) Metastatic colon cancer to liver Code(s): C18.9 - MALIGNANT NEOPLASM OF COLON, UNSPECIFIED; C78.7 - SECONDARY MALIG NEOPLASM OF LIVER AND INTRAHEPATIC BILE DUCT (3) Neuropathy Code(s): G62.9 - POLYNEUROPATHY, UNSPECIFIED (4) Sciatica of left side Code(s): M54.32 - SCIATICA, LEFT SIDE (5) Hypertension Code(s): I10 - ESSENTIAL (PRIMARY) HYPERTENSION
[2018-08-26 13:43] LABS: URINE APPEARANCE CLOUDY; URINE BILIRUBIN NEGATIVE (<2.0 mg/dL); URINE COLOR AMBER; URINE GLUCOSE (UA) NEGATIVE (NEGATIVE); URINE KETONE NEGATIVE (NEGATIVE); URINE LEUK ESTERASE NEGATIVE (NEGATIVE); URINE NITRITE NEGATIVE (NEGATIVE); URINE PROTEIN 2+ (NEGATIVE); URINE UROBILINOGEN 4.0 E.U/dl mg/dL (0.2-1.0)
[2018-08-26] MEDS ORDERED: PORTA CATH FLUSH 10 ML IVPUSH ONE (13:45)
[2018-08-26 13:56] LABS: EPI CELLS RARE /HPF (FEW); URINE BACTERIA RARE /hpf (NONE SEEN); URINE MUCUS RARE; YEAST FEW
[2018-08-26] MEDS: SODIUM CHLORIDE 1,000 ML IV SCH (16:07)
[2018-08-26] MEDS: FENTANYL PATCH WASTE MC PRN (18:41)
--- NOTE | 2018-08-26 18:50 | PN ---
Progress Note (short form) - Note Progress Note: Patient seen and examined Somewhat dysarthric and with word finding difficulties. ?? meds ?? Narcotics, ?? [employer] mets. Last Vital Signs Temp Pulse Resp BP Pulse Ox 99.5 F 96 H 18 113/70 98 08/26/18 16:58 08/26/18 16:58 08/26/18 16:58 08/26/18 16:58 08/26/18 09:00 HEENT: EZEQUIEL, EOM Intact Oropharynx: No thrush, No mucositis Cor: RSR, No murmurs, No gallops Lungs: Clear to P&A anteriorly Abd: Soft, Normal bowel sounds, No organomegaly, colostomy Ext:LE edema Skin: No rashes, Integument intact CBC, BMP 08/26/18 06:00 08/26/18 06:00 Current Medications Generic Name Dose Route Start Last Admin Trade Name Freq PRN Reason Stop Dose Admin Acetaminophen 650 mg 08/23/18 14:35 08/25/18 10:31 Tylenol - PO 650 mg Q6H PRN Administration FEVER Carvedilol 12.5 mg 08/16/18 22:00 08/26/18 09:07 Coreg - PO 12.5 mg BID AJ Administration Docusate Sodium 100 mg 08/16/18 22:00 08/26/18 13:25 Colace - PO 100 mg TID AJ Administration Fentanyl 1 patch 08/21/18 13:00 08/24/18 14:36 Duragesic 25mcg Patch - TD 08/28/18 12:50 1 patch Q72H JA Administration IV Flush 10 ml 08/18/18 22:39 08/19/18 06:18 Vu-Cath Flush IVPUSH 10 ml PRN PRN Administration protocol, patency maintenance IV Flush 10 ml 08/22/18 13:46 Vu-Cath Flush IVPUSH PRN PRN FLUSH Piperacillin Sod/Tazobactam 50 mls @ 100 mls/hr 08/19/18 18:00 08/26/18 17:55 Sod 3.375 gm/ Dextrose IVPB 100 mls/hr Q8H-IV AJ Administration Protocol Sodium Chloride 1,000 mls @ 125 mls/hr 08/25/18 14:45 08/26/18 16:07 Normal Saline - IV 125 mls/hr ASDIR AJ Administration Miscellaneous 1 each 08/21/18 12:50 08/26/18 18:41 Duragesic Patch Waste MC 1 each PRN PRN Administration PAIN Morphine Sulfate 4 mg 08/25/18 09:30 08/26/18 10:09 Morphine Sulfate IVPUSH 4 mg DAILY@0930 AJ Administration Pantoprazole Sodium 40 mg 08/17/18 10:00 08/26/18 09:07 Protonix - PO 40 mg DAILY AJ Administration Polyethylene Glycol 17 gm 08/19/18 10:00 08/26/18 10:10 Miralax (For Daily Use) - PO 17 grams DAILY AJ Administration Impression: metastatic colon ca Sacral mass Pain Anemia ISMAEL Plan : Decrease fentanyl Continue with RT Transfuse one unit of packed cells.
[2018-08-26] MEDS ORDERED: FENTANYL PATCH WASTE TD PRN (18:51)
[2018-08-26] MEDS ORDERED: fentaNYL 12mcg/hr PATCH.TD72 TD SCH (19:00)
[2018-08-27] MEDS ORDERED: PIPERACILLIN/TAZOBACTAM 3.375 GM VIAL IVPB ONE ×2 (00:55→08:20)
[2018-08-27] MEDS ORDERED: DEXTROSE 5%-WATER - 50 ML IVPB ONE ×2 (00:55→08:20)
[2018-08-27] MEDS: PIPERACILLIN/TAZOB 3.375 GM 3.375 GM in DEXTROSE 5%-WATER - 50 ML IVPB SCH ×2 (01:11→09:40)
[2018-08-27] MEDS: DOCUSATE SODIUM 100 MG CAPSULE (FP) PO SCH ×3 (05:03→22:59)
[2018-08-27 07:19] LABS: BASO % 0.3 % (0-2.0); EOS % 0.3 % (0-4.5); HEMATOCRIT 23.6 % (35.4-49); HEMOGLOBIN 7.7 GM/dL (11.7-16.9); LYMPH % 2.9 % (8-40); MCH 27.3 pg (25.7-33.7); MCHC 32.7 g/dl (32.0-35.9); MEAN CELL VOLUME 83.5 fl (80-96); MEAN PLT VOLUME 8.7 fl (7.5-11.1); NEUT % 93.5 % (42.8-82.8); PLATELET COUNT 236 K/MM3 (134-434); RBC 2.83 M/mm3 (4.00-5.60); WHITE BLOOD COUNT 19.2 K/mm3 (4.0-10.0)
[2018-08-27 08:35] LABS: ANION GAP 9 MMOL/L (8-16); BLOOD UREA NITROGEN 90 mg/dL (7-18); CHLORIDE 106 mmol/L (98-107); CO2 19 mmol/L (21-32); CREATININE 3.3 mg/dL (0.55-1.3); GLUCOSE,RANDOM 78 mg/dL (74-106); MAGNESIUM 2.6 mg/dL (1.8-2.4); PHOSPHOROUS 4.8 mg/dL (2.5-4.9); POTASSIUM 4.8 mmol/L (3.5-5.1); SODIUM 135 mmol/L (136-145)
[2018-08-27] MEDS: PANTOPRAZOLE 40 MG TABLET (FP) PO SCH (09:39)
[2018-08-27] MEDS: morphine SULFATE 4 MG/ML VIAL IVPUSH SCH (09:39)
[2018-08-27] MEDS: CARVEDILOL 12.5 MG TABLET (FP) PO SCH ×2 (09:39→22:59)
[2018-08-27] MEDS: POLYETHYLENE GLYCOL 3350 119 GM BTL PO SCH (09:39)
[2018-08-27] MEDS ORDERED: PORTA CATH FLUSH 10 ML IVPUSH ONE (10:22)
[2018-08-27] MEDS ORDERED: HYDROmorphone HCl 2 MG/ML VIAL IVPB PRN (10:53)
--- NOTE | 2018-08-27 11:01 | PN ---
Progress Note (short form) - Note Progress Note: refusing to go to Radiation therapy c/o pain in leg Genitalia swollen refusing meds refused pain meds last night Vital Signs - 24 hr 08/26/18 08/26/18 08/26/18 13:10 14:42 16:58 Temperature 98.3 F 99.5 F Temperature [ 98.5 F Prior to transport] Temperature [ 98.3 F Return from therapy] Pulse Rate 96 H Pulse Rate [ 91 H Prior to transport] Pulse Rate [ 93 H Return from therapy] Respiratory 18 Rate Respiratory 20 Rate [Prior to transport] Respiratory 20 Rate [Return from therapy] Blood Pressure 113/70 Blood Pressure 100/72 [Prior to transport] Blood Pressure 111/71 [Return from therapy] O2 Sat by Pulse Oximetry (%) 08/26/18 08/26/18 08/27/18 21:00 22:00 06:28 Temperature 98.7 F 98.0 F Temperature [ Prior to transport] Temperature [ Return from therapy] Pulse Rate 95 H 92 H Pulse Rate [ Prior to transport] Pulse Rate [ Return from therapy] Respiratory 18 18 Rate Respiratory Rate [Prior to transport] Respiratory Rate [Return from therapy] Blood Pressure 125/79 106/64 Blood Pressure [Prior to transport] Blood Pressure [Return from therapy] O2 Sat by Pulse 99 Oximetry (%) 08/27/18 08/27/18 09:00 10:00 Temperature 97.8 F Temperature [ Prior to transport] Temperature [ Return from therapy] Pulse Rate 92 H Pulse Rate [ Prior to transport] Pulse Rate [ Return from therapy] Respiratory 18 18 Rate Respiratory Rate [Prior to transport] Respiratory Rate [Return from therapy] Blood Pressure 109/74 Blood Pressure [Prior to transport] Blood Pressure [Return from therapy] O2 Sat by Pulse 98 Oximetry (%) Current Medications Generic Name Dose Route Start Last Admin Trade Name Freq PRN Reason Stop Dose Admin Acetaminophen 650 mg 08/23/18 14:35 08/25/18 10:31 Tylenol - PO 650 mg Q6H PRN Administration FEVER Carvedilol 12.5 mg 08/16/18 22:00 08/27/18 09:39 Coreg - PO 12.5 mg BID AJ Administration Docusate Sodium 100 mg 08/16/18 22:00 08/27/18 05:03 Colace - PO Not Given TID AJ Fentanyl 1 patch 08/26/18 19:00 08/26/18 19:54 Duragesic 12mcg Patch - TD 09/02/18 18:51 1 patch Q72H AJ Administration Heparin Sodium (Porcine) 5,000 unit 08/27/18 22:00 Heparin - SQ BID AJ Hydromorphone HCl 2 mg 08/27/18 10:53 Dilaudid Injection - IVPUSH Q4H PRN PAIN LEVEL 7 - 10 IV Flush 10 ml 08/18/18 22:39 08/19/18 06:18 Vu-Cath Flush IVPUSH 10 ml PRN PRN Administration protocol, patency maintenance IV Flush 10 ml 08/22/18 13:46 Vu-Cath Flush IVPUSH PRN PRN FLUSH Piperacillin Sod/Tazobactam 50 mls @ 100 mls/hr 08/19/18 18:00 08/27/18 09:40 Sod 3.375 gm/ Dextrose IVPB 100 mls/hr Q8H-IV AJ Administration Protocol Sodium Chloride 1,000 mls @ 125 mls/hr 08/25/18 14:45 08/26/18 16:07 Normal Saline - IV 125 mls/hr ASDIR AJ Administration Miscellaneous 1 each 08/26/18 18:51 Duragesic Patch Waste TD PRN PRN PAIN Morphine Sulfate 4 mg 08/25/18 09:30 08/27/18 09:39 Morphine Sulfate IVPUSH 4 mg DAILY@0930 AJ Administration Pantoprazole Sodium 40 mg 08/17/18 10:00 08/27/18 09:39 Protonix - PO 40 mg DAILY AJ Administration Polyethylene Glycol 17 gm 08/19/18 10:00 08/27/18 09:39 Miralax (For Daily Use) - PO 17 grams DAILY AJ Administration Laboratory Results - last 24 hr 08/23/18 08/26/18 08/26/18 13:35 06:00 12:36 WBC RBC Hgb Hct MCV MCH MCHC RDW Plt Count MPV Absolute Neuts (auto) Neutrophils % Neutrophils % (Manual) 94.0 H D Band Neutrophils % 3.0 Lymphocytes % Lymphocytes % (Manual) 1.0 L D Monocytes % Monocytes % (Manual) 2 L D Eosinophils % Eosinophils % (Manual) 0.0 Basophils % Basophils % (Manual) 0.0 Myelocytes % (Man) 0 D Promyelocytes % (Man) 0 Blast Cells % (Manual) 0 Nucleated RBC % Metamyelocytes 0 D Hypochromia 0 Toxic Granulation 0 Dohle Bodies 0 Platelet Estimate Normal Polychromasia 0 Poikilocytosis 0 Basophilic Stippling 0 Anisocytosis 0 Microcytosis 0 Macrocytosis 0 Spherocytes 0 Sickle Cells 0 Target Cells 0 Tear Drop Cells 0 Ovalocytes 0 Stomatocytes 0 Helmet Cells 0 [place] Bodies 0 [place] Rings 0 [place] Cells 0 Acanthocytes (Spur) 0 Rouleaux 0 Fragmented RBCs 0 Schistocytes 0 Sodium Potassium Chloride Carbon Dioxide Anion Gap BUN Creatinine Creat Clearance w eGFR Random Glucose Calcium Phosphorus Magnesium Urine Color Urine Appearance Urine pH Ur Specific [place] Urine Protein Urine Glucose (UA) Urine Ketones Urine Blood Urine Nitrite Urine Bilirubin Urine Urobilinogen Ur Leukocyte Esterase Urine WBC (Auto) Urine RBC (Auto) Ur Epithelial Cells Urine Bacteria Urine Mucus Urine Yeast U Random Total Protein Ur Random Sodium < 18 L Urine Creatinine Blood Type O POSITIVE Antibody Screen Negative Crossmatch See Detail 08/26/18 08/26/18 08/26/18 12:36 12:36 12:36 WBC RBC Hgb Hct MCV MCH MCHC RDW Plt Count MPV Absolute Neuts (auto) Neutrophils % Neutrophils % (Manual) Band Neutrophils % Lymphocytes % Lymphocytes % (Manual) Monocytes % Monocytes % (Manual) Eosinophils % Eosinophils % (Manual) Basophils % Basophils % (Manual) Myelocytes % (Man) Promyelocytes % (Man) Blast Cells % (Manual) Nucleated RBC % Metamyelocytes Hypochromia Toxic Granulation Dohle Bodies Platelet Estimate Polychromasia Poikilocytosis Basophilic Stippling Anisocytosis Microcytosis Macrocytosis Spherocytes Sickle Cells Target Cells Tear Drop Cells Ovalocytes Stomatocytes Helmet Cells [place] Bodies [place] Rings Antonio Cells Acanthocytes (Spur) Rouleaux Fragmented RBCs Schistocytes Sodium Potassium Chloride Carbon Dioxide Anion Gap BUN Creatinine Creat Clearance w eGFR Random Glucose Calcium Phosphorus Magnesium Urine Color [place] Urine Appearance Cloudy Urine pH 5.0 Ur Specific [place] 1.016 Urine Protein 2+ H Urine Glucose (UA) Negative Urine Ketones Negative Urine Blood Negative Urine Nitrite Negative Urine Bilirubin Negative Urine Urobilinogen 4.0 e.u/dl Ur Leukocyte Esterase Negative Urine WBC (Auto) 5 Urine RBC (Auto) 2 Ur Epithelial Cells Rare Urine Bacteria Rare Urine Mucus Rare Urine Yeast Few U Random Total Protein 257 H Ur Random Sodium Urine Creatinine 109.0 H Blood Type Antibody Screen Crossmatch 08/27/18 08/27/18 08/27/18 06:10 06:10 09:12 WBC 19.2 H RBC 2.83 L Hgb 7.7 L Hct 23.6 L MCV 83.5 MCH 27.3 MCHC 32.7 RDW 18.0 H Plt Count 236 MPV 8.7 Absolute Neuts (auto) 17.9 H Neutrophils % 93.5 H Neutrophils % (Manual) Band Neutrophils % Lymphocytes % 2.9 L D Lymphocytes % (Manual) Monocytes % 3.0 L Monocytes % (Manual) Eosinophils % 0.3 D Eosinophils % (Manual) Basophils % 0.3 Basophils % (Manual) Myelocytes % (Man) Promyelocytes % (Man) Blast Cells % (Manual) Nucleated RBC % 0 Metamyelocytes Hypochromia Toxic Granulation Dohle Bodies Platelet Estimate Polychromasia Poikilocytosis Basophilic Stippling Anisocytosis Microcytosis Macrocytosis Spherocytes Sickle Cells Target Cells Tear Drop Cells Ovalocytes Stomatocytes Helmet Cells [place] Bodies [place] Rings [place] Cells Acanthocytes (Spur) Rouleaux Fragmented RBCs Schistocytes Sodium 135 L Potassium 4.8 Chloride 106 Carbon Dioxide 19 L Anion Gap 9 BUN 90 H Creatinine 3.3 H Creat Clearance w eGFR 20.03 Random Glucose 78 Calcium 6.8 L* Phosphorus 4.8 Magnesium 2.6 H Urine Color Urine Appearance Urine pH Ur Specific [place] Urine Protein Urine Glucose (UA) Urine Ketones Urine Blood Urine Nitrite Urine Bilirubin Urine Urobilinogen Ur Leukocyte Esterase Urine WBC (Auto) Urine RBC (Auto) Ur Epithelial Cells Urine Bacteria Urine Mucus Urine Yeast U Random Total Protein Ur Random Sodium Urine Creatinine Blood Type Antibody Screen Crossmatch See Detail S1 S2 RRR Anorexic Lungs decreased Abd - soft, NT, Colostomy functioning Ext- left leg edema PLAN Sono legs negative for DVT Pelvic MRI noted-- increased size of sacral mass For RT renal function worsening s/p PRBC iv fluids iv antibiotics on fentanyl patch and add dilaudid prn palliative care evaluation Problem List - Problems (1) Intractable back pain Code(s): M54.9 - DORSALGIA, UNSPECIFIED (2) Metastatic colon cancer to liver Code(s): C18.9 - MALIGNANT NEOPLASM OF COLON, UNSPECIFIED; C78.7 - SECONDARY MALIG NEOPLASM OF LIVER AND INTRAHEPATIC BILE DUCT (3) Neuropathy Code(s): G62.9 - POLYNEUROPATHY, UNSPECIFIED (4) Sciatica of left side Code(s): M54.32 - SCIATICA, LEFT SIDE (5) Hypertension Code(s): I10 - ESSENTIAL (PRIMARY) HYPERTENSION
--- NOTE | 2018-08-27 11:06 | PN ---
Progress Note (short form) - Note Progress Note: PROGRESS NOTE FOR HEMATOLOGY/ONCOLOGY Patient seen and examined by me at bedside. Patient reports pain is not controlled today, despite RT. Fentanyl was decreased yesterday Otherwise, denies any fever, chills, nausea, vomiting, abdominal pain, chest pain, palpitations, shortness of breath Vital Signs Temperature 97.8 F 08/27/18 10:00 Pulse Rate 92 H 08/27/18 10:00 Respiratory Rate 18 08/27/18 10:00 Blood Pressure 109/74 08/27/18 10:00 O2 Sat by Pulse Oximetry (%) 98 08/27/18 09:00 PHYSICAL EXAMINATION GENERAL: Awake, alert, oriented to person and place. No acute distress EYES: conjunctiva clear. ENT: Moist mucous membranes LUNGS: Diminished breath sounds bilaterally with no crackles or wheezes HEART: RRR, normal S1 and S2 GENITAL: Enlarged, edematous penis with no erythema ABDOMEN: Soft, nontender, not distended, normoactive bowel sounds. Colostomy bag in place EXTREMITIES: 1+ pitting edema bilaterally Laboratory Tests 08/27/18 06:10 08/27/18 06:10 08/27/18 06:10 Calcium 6.8 L* Phosphorus 4.8 Magnesium 2.6 H ASSESSMENT AND PLAN: Patient is a 48 year old male with metastatic rectal cancer with mets to the liver and lungs on 5-FU/Leucovorin who presented with severe left leg pain for > 1 weeks. Patient found to have sepsis and admitted for further monitoring and management. Problem List: Metastatic Rectal Cancer with perirectal mass extending through sciatic notch and into piriformis muscle. HTN ISMAEL Anemia of chronic disease PLAN: -Pain continues to improve with RT. Will continue RT with daily RT for a total of 10 days. However, patient reports pain is more intense than yesterday, likely due to decrease in Fentanyl. Will increase Morphine dose for pain control. -S/P 1 PRBC yesterday. Continue to monitor Hgb -Renal function progressively worsening, despite being on fluids. Patient currently on Zosyn and may be the cause of worsening renal function. Will need to speak to Hand Etcher.
--- NOTE | 2018-08-27 11:38 | PN ---
Progress Note (short form) - Note Progress Note: Renal follow up for ISMAEL Pt seen and examined at the bedside awake and alert no acute complaints making urine Vital Signs Temperature 97.8 F 08/27/18 10:00 Pulse Rate 92 H 08/27/18 10:00 Respiratory Rate 18 08/27/18 10:00 Blood Pressure 109/74 08/27/18 10:00 O2 Sat by Pulse Oximetry (%) 98 08/27/18 09:00 Intake & Output 08/24/18 08/25/18 08/26/18 08/27/18 23:59 23:59 23:59 23:59 Intake Total 2580 3650 2575 1025 Output Total 1000 2401 1000 Balance 1580 1249 1575 1025 NAD awake and alert neck supple, no JVD Dec BS +++ edema in LE CBC, BMP 08/27/18 06:10 08/27/18 06:10 Current Medications Acetaminophen (Tylenol -) 650 mg PO Q6H PRN PRN Reason: FEVER Last Admin: 08/25/18 10:31 Dose: 650 mg Carvedilol (Coreg -) 12.5 mg PO BID [facility] Last Admin: 08/27/18 09:39 Dose: 12.5 mg Docusate Sodium (Colace -) 100 mg PO TID [facility] Last Admin: 08/27/18 05:03 Dose: Not Given Fentanyl (Duragesic 12mcg Patch -) 1 patch TD Q72H [facility] Stop: 09/02/18 18:51 Last Admin: 08/26/18 19:54 Dose: 1 patch Heparin Sodium (Porcine) (Heparin -) 5,000 unit SQ BID [facility] Hydromorphone HCl (Dilaudid Vial -) 2 mg IVPB Q4H PRN PRN Reason: PAIN LEVEL 7 - 10 IV Flush (Vu-Cath Flush) 10 ml IVPUSH PRN PRN PRN Reason: protocol, patency maintenance Last Admin: 08/19/18 06:18 Dose: 10 ml IV Flush (Vu-Cath Flush) 10 ml IVPUSH PRN PRN PRN Reason: FLUSH Piperacillin Sod/Tazobactam (Sod 3.375 gm/ Dextrose) 50 mls @ 100 mls/hr IVPB Q8H-IV AJ; Protocol Last Admin: 08/27/18 09:40 Dose: 100 mls/hr Sodium Chloride (Normal Saline -) 1,000 mls @ 125 mls/hr IV ASDIR [facility] Last Admin: 08/26/18 16:07 Dose: 125 mls/hr Miscellaneous (Duragesic Patch Waste) 1 each TD PRN PRN PRN Reason: PAIN Morphine Sulfate (Morphine Sulfate) 4 mg IVPUSH DAILY@0930 [facility] Last Admin: 08/27/18 09:39 Dose: 4 mg Pantoprazole Sodium (Protonix -) 40 mg PO DAILY [facility] Last Admin: 08/27/18 09:39 Dose: 40 mg Polyethylene Glycol (Miralax (For Daily Use) -) 17 gm PO DAILY [facility] Last Admin: 08/27/18 09:39 Dose: 17 grams 48 year old gentleman with hx of Colon Ca on Chemo, Hypertension, CVA who presented with severe back pain and noted to develop ISMAEL during the hospital course. #ISMAEL likely secondary to renal hypoprofuisonin setting of ARB/HCTZ +/- urinary retention vs. AIN (urine Na very low indicating preserved tubular function, bladder scan PVR ~200cc, no hydronephrosis seen on US) #Anion gap metabolic acidosis Renal function continues to worsen pt now with worsening edema, will discontinue saline check urien eos, consider changing Zosyn Continue gilmore pt with penile swelling, check scrotal penile doppler will check serologic work up for progressive renal failure Sami Pulido DO
[2018-08-27] MEDS ORDERED: morphine SULFATE 4 MG/ML VIAL IVPUSH PRN (12:15)
[2018-08-27 12:58] LABS: ACANTHOCYTES 1+; ANISOCYTOSIS 2+; MACROCYTOSIS 0; OVALOCYTE 1+; PLATELET ESTIMATE NORMAL; TEAR DROP CELLS 1+
[2018-08-27] MEDS ORDERED: HEPARIN NA (PORCINE) 5,000 UNITS/ML 1ML VIAL SQ ONE (13:00)
[2018-08-27 13:23] LABS: CALCIUM 6.8 mg/dL (8.5-10.1)
--- NOTE | 2018-08-27 13:23 | PN ---
Progress Note, Physician History of Present Illness: Awake, alert No focal complaint at present Afebrile BC polymicrobial MRI pelvis shows increased perirectal ST mass + fluid collection ? abscesses Repeat BC no growth - Current Medication List Current Medications: Active Medications Acetaminophen (Tylenol -) 650 mg PO Q6H PRN PRN Reason: FEVER Last Admin: 08/25/18 10:31 Dose: 650 mg Carvedilol (Coreg -) 12.5 mg PO BID [facility] Last Admin: 08/27/18 09:39 Dose: 12.5 mg Docusate Sodium (Colace -) 100 mg PO TID [facility] Last Admin: 08/27/18 05:03 Dose: Not Given Fentanyl (Duragesic 12mcg Patch -) 1 patch TD Q72H [facility] Stop: 09/02/18 18:51 Last Admin: 08/26/18 19:54 Dose: 1 patch Heparin Sodium (Porcine) (Heparin -) 5,000 unit SQ BID [facility] IV Flush (Vu-Cath Flush) 10 ml IVPUSH PRN PRN PRN Reason: protocol, patency maintenance Last Admin: 08/19/18 06:18 Dose: 10 ml IV Flush (Vu-Cath Flush) 10 ml IVPUSH PRN PRN PRN Reason: FLUSH Sodium Chloride (Normal Saline -) 1,000 mls @ 125 mls/hr IV ASDIR [facility] Last Admin: 08/26/18 16:07 Dose: 125 mls/hr Piperacillin Sod/Tazobactam (Sod 2.25 gm/ Dextrose) 50 mls @ 100 mls/hr IVPB Q8H-IV JA; Protocol Miscellaneous (Duragesic Patch Waste) 1 each TD PRN PRN PRN Reason: PAIN Morphine Sulfate (Morphine Sulfate) 4 mg IVPUSH Q3H PRN PRN Reason: PAIN LEVEL 6-10 Pantoprazole Sodium (Protonix -) 40 mg PO DAILY [facility] Last Admin: 08/27/18 09:39 Dose: 40 mg Polyethylene Glycol (Miralax (For Daily Use) -) 17 gm PO DAILY [facility] Last Admin: 08/27/18 09:39 Dose: 17 grams - Objective Vital Signs: Vital Signs Temperature 97.8 F 08/27/18 10:00 Pulse Rate 92 H 08/27/18 10:00 Respiratory Rate 18 08/27/18 10:00 Blood Pressure 109/74 08/27/18 10:00 O2 Sat by Pulse Oximetry (%) 98 08/27/18 09:00 Constitutional: Yes: No Distress Cardiovascular: Yes: Regular Rate and Rhythm, S1, S2 Respiratory: Yes: CTA Bilaterally Gastrointestinal: Yes: Normal Bowel Sounds, Soft. No: Tenderness Edema: Yes Edema: LLE: 2+, RLE: 2+ Labs: CBC, BMP 08/27/18 06:10 08/27/18 06:10 Assessment/Plan Polymicrobial bactermia, likely GI source ? pelvic abscesses Metastatic ca Azotemia Continue zosyn
[2018-08-27] MEDS: ACETAMINOPHEN 325 MG TABLET (FP) PO PRN (13:45)
--- NOTE | 2018-08-27 16:53 | PN ---
Progress Note (short form) - Note Progress Note: PAtient seen and examined Left leg pain confused Last Vital Signs Temp Pulse Resp BP Pulse Ox 100.7 F H 93 H 18 110/73 98 08/27/18 15:07 08/27/18 14:00 08/27/18 14:00 08/27/18 14:00 08/27/18 09:00 Cor: RSR, No murmurs, No gallops Lungs: Clear to P&A Abd: Soft, Normal bowel sounds, No organomegaly Ext:LLE edema scrotal edema Abnormal Lab Results 08/23/18 08/27/18 08/27/18 13:35 06:10 06:10 WBC 19.2 H RBC 2.83 L Hgb 7.7 L Hct 23.6 L RDW 18.0 H Absolute Neuts (auto) 17.9 H Neutrophils % 93.5 H Neutrophils % (Manual) 84.0 H Lymphocytes % 2.9 L D Lymphocytes % (Manual) 2.0 L D Monocytes % 3.0 L Monocytes % (Manual) 1 L Sodium 135 L Carbon Dioxide 19 L BUN 90 H Creatinine 3.3 H Lactic Acid Calcium 6.8 L* Magnesium 2.6 H Crossmatch See Detail 08/27/18 08/27/18 09:12 14:10 WBC RBC Hgb Hct RDW Absolute Neuts (auto) Neutrophils % Neutrophils % (Manual) Lymphocytes % Lymphocytes % (Manual) Monocytes % Monocytes % (Manual) Sodium Carbon Dioxide BUN Creatinine Lactic Acid 2.2 H* Calcium Magnesium Crossmatch See Detail Active Medications Generic Name Dose Route Start Last Admin Trade Name Freq PRN Reason Stop Dose Admin Acetaminophen 650 mg 08/23/18 14:35 08/27/18 13:45 Tylenol - PO 650 mg Q6H PRN Administration FEVER Carvedilol 12.5 mg 08/16/18 22:00 08/27/18 09:39 Coreg - PO 12.5 mg BID AJ Administration Docusate Sodium 100 mg 08/16/18 22:00 08/27/18 13:21 Colace - PO 100 mg TID AJ Administration Fentanyl 1 patch 08/26/18 19:00 08/26/18 19:54 Duragesic 12mcg Patch - TD 09/02/18 18:51 1 patch Q72H AJ Administration Heparin Sodium (Porcine) 5,000 unit 08/27/18 22:00 Heparin - SQ BID AJ IV Flush 10 ml 08/18/18 22:39 08/19/18 06:18 Vu-Cath Flush IVPUSH 10 ml PRN PRN Administration protocol, patency maintenance IV Flush 10 ml 08/22/18 13:46 Vu-Cath Flush IVPUSH PRN PRN FLUSH Sodium Chloride 1,000 mls @ 125 mls/hr 08/25/18 14:45 08/26/18 16:07 Normal Saline - IV 125 mls/hr ASDIR AJ Administration Piperacillin Sod/Tazobactam 50 mls @ 100 mls/hr 08/27/18 18:00 Sod 2.25 gm/ Dextrose IVPB Q8H-IV AJ Protocol Miscellaneous 1 each 08/26/18 18:51 Duragesic Patch Waste TD PRN PRN PAIN Morphine Sulfate 4 mg 08/27/18 12:15 08/27/18 13:21 Morphine Sulfate IVPUSH 4 mg Q3H PRN Administration PAIN LEVEL 6-10 Pantoprazole Sodium 40 mg 08/17/18 10:00 08/27/18 09:39 Protonix - PO 40 mg DAILY AJ Administration Polyethylene Glycol 17 gm 08/19/18 10:00 08/27/18 09:39 Miralax (For Daily Use) - PO 17 grams DAILY AJ Administration A/P 48 y/o with metastatic rectal cancer BRAF mutated/KRAS wild type/ MSI low, with liver/lung mets, s/p surgery, ON FOLFOX/avastin, recent oxaliplatin neuropathy and had been on 5-FU/leucovorin/avastin, recent scans on 08/07 showing progressive disease, comes in with left leg severe pain of 1 week duration. MRI T/L spine show no cord compression Recurrent 6 cm pelvic mass encroaching sciatic foramen satrted RT . did not go today Pain medication prior to RT Acute renal failure- worsening renal function. discussed with renal team decrease iv fluids altered mental status -- ? pain meds ? infection discussed with --will stop fentanyl/add ms contin as needed morphine 4mg q4hrs. prn fevers--discussed with ID will switch to meropenem and flagyl
[2018-08-27] MEDS ORDERED: PIPERACILLIN/TAZOB 2.25 GM 2.25 GM in DEXTROSE 5%-WATER - 50 ML IVPB SCH (18:00)
[2018-08-27] MEDS: SODIUM CHLORIDE 1,000 ML IV SCH (18:27)
[2018-08-27] MEDS: MEROPENEM 500 MG in DEXTROSE 5%-WATER 100 ML IVPB SCH ×2 (18:28→23:01)
[2018-08-27] MEDS ORDERED: PT OWN MED DRAWER 7, Y5N ONE (18:47)
--- NOTE | 2018-08-27 21:13 | PN ---
Progress Note (short form) - Note Progress Note: Radiation Oncology On palliative RT to pelvic mass. Refused RT today. More confused and complaining of pain. MRI pelvis reviewed: presacral mass involving sacral foramina and encasing nerve roots S1-4, with possible muscle invasion. BCx+ anaerobic GNR - on Abx. Completed 2/10 fractions of RT to date. Continue as tolerated. Will need analgesic premedication vision mixer to RT. Will need to optimize pain control with analgesics. Discussed with med onc.
[2018-08-27] MEDS: HEPARIN NA (PORCINE) 5,000 UNITS/ML 1ML VIAL SQ SCH (23:00)
[2018-08-28] MEDS: DOCUSATE SODIUM 100 MG CAPSULE (FP) PO SCH ×3 (06:10→22:40)
[2018-08-28] MEDS: morphine SULFATE 4 MG/ML VIAL IVPUSH PRN ×3 (06:12→16:14)
[2018-08-28 06:33] LABS: URINE APPEARANCE SLCLOUDY; URINE BILIRUBIN NEGATIVE (<2.0 mg/dL); URINE GLUCOSE (UA) NEGATIVE (NEGATIVE); URINE KETONE NEGATIVE (NEGATIVE); URINE LEUK ESTERASE NEGATIVE (NEGATIVE); URINE NITRITE NEGATIVE (NEGATIVE); URINE PROTEIN 2+ (NEGATIVE); URINE UROBILINOGEN 4.0 E.U/dl mg/dL (0.2-1.0)
[2018-08-28 06:36] LABS: URINE COLOR YELLOW
[2018-08-28 06:37] LABS: URINE MUCUS RARE
[2018-08-28] MEDS: SODIUM CHLORIDE 1,000 ML IV SCH (06:49)
[2018-08-28 07:14] LABS: BASO % 0.4 % (0-2.0); EOS % 0.4 % (0-4.5); HEMATOCRIT 22.4 % (35.4-49); HEMOGLOBIN 7.3 GM/dL (11.7-16.9); LYMPH % 5.1 % (8-40); MCH 27.4 pg (25.7-33.7); MCHC 32.5 g/dl (32.0-35.9); MEAN CELL VOLUME 84.4 fl (80-96); MEAN PLT VOLUME 8.5 fl (7.5-11.1); NEUT % 90.1 % (42.8-82.8); PLATELET COUNT 277 K/MM3 (134-434); RBC 2.65 M/mm3 (4.00-5.60); RDW 18.6 % (11.9-15.9); WHITE BLOOD COUNT 13.3 K/mm3 (4.0-10.0)
[2018-08-28 07:48] LABS: ALBUMIN 0.8 g/dl (3.4-5.0); ALK PHOS 297 U/L (45-117); ANION GAP 11 MMOL/L (8-16); BILIRUBIN,TOTAL 1.4 mg/dL (0.2-1); BLOOD UREA NITROGEN 100 mg/dL (7-18); CHLORIDE 106 mmol/L (98-107); CO2 17 mmol/L (21-32); CREATININE 3.8 mg/dL (0.55-1.3); GLUCOSE,RANDOM 96 mg/dL (74-106); POTASSIUM 5.1 mmol/L (3.5-5.1); SGOT/AST 40 U/L (15-37); SGPT/ALT 20 U/L (13-61); SODIUM 134 mmol/L (136-145); TOT PROT 4.1 g/dl (6.4-8.2)
[2018-08-28] MEDS: HEPARIN NA (PORCINE) 5,000 UNITS/ML 1ML VIAL SQ SCH ×2 (09:59→23:07)
[2018-08-28] MEDS: PANTOPRAZOLE 40 MG TABLET (FP) PO SCH (09:59)
[2018-08-28] MEDS: CARVEDILOL 12.5 MG TABLET (FP) PO SCH ×2 (09:59→22:41)
[2018-08-28] MEDS: MEROPENEM 500 MG in DEXTROSE 5%-WATER 100 ML IVPB SCH ×2 (10:00→22:41)
[2018-08-28] MEDS: ACETAMINOPHEN 325 MG TABLET (FP) PO PRN ×2 (11:04→17:52)
--- NOTE | 2018-08-28 11:14 | PN ---
Progress Note (short form) - Note Progress Note: Renal follow up for ISMAEL Pt seen and examined at the bedside says legs feel tight no sob, cp, abd pain making urine via gilmore Vital Signs Temperature 99.6 F 08/28/18 06:00 Pulse Rate 96 H 08/28/18 06:00 Respiratory Rate 18 08/28/18 06:00 Blood Pressure 122/58 L 08/28/18 06:00 O2 Sat by Pulse Oximetry (%) 98 08/27/18 21:00 Intake & Output 08/25/18 08/26/18 08/27/18 08/28/18 23:59 23:59 23:59 23:59 Intake Total 3650 2575 1825 1100 Output Total 2401 1000 200 200 Balance 1249 1575 1625 900 NAD Soft NT/ND Abd, Ostomy in place +++ edema in LE and mild edema in UE CBC, BMP 08/28/18 06:15 08/28/18 06:15 Current Medications Acetaminophen (Tylenol -) 650 mg PO Q6H PRN PRN Reason: FEVER Last Admin: 08/28/18 11:04 Dose: 650 mg Carvedilol (Coreg -) 12.5 mg PO BID [facility] Last Admin: 08/28/18 09:59 Dose: 12.5 mg Docusate Sodium (Colace -) 100 mg PO TID [facility] Last Admin: 08/28/18 06:10 Dose: Not Given Heparin Sodium (Porcine) (Heparin -) 5,000 unit SQ BID [facility] Last Admin: 08/28/18 09:59 Dose: 5,000 unit IV Flush (Vu-Cath Flush) 10 ml IVPUSH PRN PRN PRN Reason: protocol, patency maintenance Last Admin: 08/19/18 06:18 Dose: 10 ml IV Flush (Vu-Cath Flush) 10 ml IVPUSH PRN PRN PRN Reason: FLUSH Meropenem 500 mg/ Dextrose 100 mls @ 200 mls/hr IVPB BID [facility] Last Admin: 08/28/18 10:00 Dose: 200 mls/hr Metronidazole (Flagyl 500mg Premixed Ivpb -) 500 mg in 100 mls @ 100 mls/hr IVPB Q8H-IV AJ Last Admin: 08/28/18 01:29 Dose: 100 mls/hr Sodium Chloride (Normal Saline -) 1,000 mls @ 75 mls/hr IV ASDIR [facility] Last Admin: 08/28/18 06:49 Dose: 75 mls/hr Miscellaneous (Duragesic Patch Waste) 1 each TD PRN PRN PRN Reason: PAIN Morphine Sulfate (Morphine Sulfate) 4 mg IVPUSH Q4H PRN PRN Reason: PAIN LEVEL 6-10 Last Admin: 08/28/18 09:59 Dose: 4 mg Pantoprazole Sodium (Protonix -) 40 mg PO DAILY [facility] Last Admin: 08/28/18 09:59 Dose: 40 mg Polyethylene Glycol (Miralax (For Daily Use) -) 17 gm PO DAILY [facility] Last Admin: 08/27/18 09:39 Dose: 17 grams 48 year old gentleman with hx of Colon Ca on Chemo, Hypertension, CVA who presented with severe back pain and noted to develop ISMAEL during the hospital course. #Progressive worsening of renal function with decreasing urine output(urine Na very low indicating preserved tubular function, Urine Eos pending, no hydronephrosis seen on US) #Anion gap metabolic acidosis Underlying etiology of ISMAEL unclear but differential includes obstruction from pelvic lymphadenopathy vs. AIN vs. 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
[2018-08-28] MEDS: POLYETHYLENE GLYCOL 3350 119 GM BTL PO SCH (11:59)
[2018-08-28] MEDS ORDERED: ALPRAZolam 0.25 MG TABLET PO PRN (12:15)
--- NOTE | 2018-08-28 12:38 | PN ---
Progress Note (short form) - Note Progress Note: Radiation Oncology Pain better controlled today, rec'd 3rd fraction RT. MRI pelvis reviewed: presacral mass involving sacral foramina and encasing nerve roots S1-4, with possible muscle invasion. BCx+ anaerobic GNR - on Abx. Completed 3/10 fractions of RT to date. Continue as tolerated. 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 Will need to optimize pain control with analgesics. Discussed with med onc.
--- NOTE | 2018-08-28 13:07 | PN ---
Progress Note (short form) - Note Progress Note: just came back from Radiation therapy c/o pain in leg Genitalia swollen-- penis- no scrotal edema he is anxious not making much sense currently Vital Signs - 24 hr 08/27/18 08/27/18 08/27/18 14:00 15:07 16:58 Temperature 101.4 F H 100.7 F H 102.9 F H Temperature [ Prior to transport] Temperature [ Return from therapy] Pulse Rate 93 H 99 H Pulse Rate [ Prior to transport] Pulse Rate [ Return from therapy] Respiratory 18 18 Rate Respiratory Rate [Prior to transport] Respiratory Rate [Return from therapy] Blood Pressure 110/73 116/63 Blood Pressure [Prior to transport] Blood Pressure [Return from therapy] O2 Sat by Pulse Oximetry (%) 08/27/18 08/27/18 08/27/18 18:23 21:00 22:00 Temperature 99.8 F H 99.4 F Temperature [ Prior to transport] Temperature [ Return from therapy] Pulse Rate 89 Pulse Rate [ Prior to transport] Pulse Rate [ Return from therapy] Respiratory 18 20 Rate Respiratory Rate [Prior to transport] Respiratory Rate [Return from therapy] Blood Pressure 96/64 Blood Pressure [Prior to transport] Blood Pressure [Return from therapy] O2 Sat by Pulse 98 Oximetry (%) 08/28/18 08/28/18 08/28/18 01:15 06:00 10:00 Temperature 99.2 F 99.6 F 99.6 F Temperature [ 100.1 F H Prior to transport] Temperature [ 98.5 F Return from therapy] Pulse Rate 75 96 H 101 H Pulse Rate [ 102 H Prior to transport] Pulse Rate [ 100 H Return from therapy] Respiratory 18 18 18 Rate Respiratory 20 Rate [Prior to transport] Respiratory 20 Rate [Return from therapy] Blood Pressure 150/69 122/58 L 116/74 Blood Pressure 111/71 [Prior to transport] Blood Pressure 133/81 [Return from therapy] O2 Sat by Pulse Oximetry (%) Current Medications Generic Name Dose Route Start Last Admin Trade Name Freq PRN Reason Stop Dose Admin Acetaminophen 650 mg 08/23/18 14:35 08/28/18 11:04 Tylenol - PO 650 mg Q6H PRN Administration FEVER Alprazolam 0.5 mg 08/28/18 12:15 Xanax - PO Q8H PRN ANXIETY Carvedilol 12.5 mg 08/16/18 22:00 08/28/18 09:59 Coreg - PO 12.5 mg BID AJ Administration Docusate Sodium 100 mg 08/16/18 22:00 08/28/18 06:10 Colace - PO Not Given TID AJ Heparin Sodium (Porcine) 5,000 unit 08/27/18 22:00 08/28/18 09:59 Heparin - SQ 5,000 unit BID AJ Administration IV Flush 10 ml 08/18/18 22:39 08/19/18 06:18 Vu-Cath Flush IVPUSH 10 ml PRN PRN Administration protocol, patency maintenance IV Flush 10 ml 08/22/18 13:46 Vu-Cath Flush IVPUSH PRN PRN FLUSH Meropenem 500 mg/ Dextrose 100 mls @ 200 mls/hr 08/27/18 17:15 08/28/18 10:00 IVPB 200 mls/hr BID AJ Administration Metronidazole 500 mg in 100 mls @ 100 mls/hr 08/27/18 18:00 08/28/18 11:58 Flagyl 500mg Premixed Ivpb - IVPB 100 mls/hr Q8H-IV AJ Administration Sodium Chloride 1,000 mls @ 75 mls/hr 08/28/18 00:07 08/28/18 06:49 Normal Saline - IV 75 mls/hr ASDIR AJ Administration Miscellaneous 1 each 08/26/18 18:51 Duragesic Patch Waste TD PRN PRN PAIN Morphine Sulfate 4 mg 08/27/18 20:35 08/28/18 09:59 Morphine Sulfate IVPUSH 4 mg Q4H PRN Administration PAIN LEVEL 6-10 Pantoprazole Sodium 40 mg 08/17/18 10:00 08/28/18 09:59 Protonix - PO 40 mg DAILY AJ Administration Polyethylene Glycol 17 gm 08/19/18 10:00 08/28/18 11:59 Miralax (For Daily Use) - PO Not Given DAILY AJ Laboratory Results - last 24 hr 08/27/18 08/27/18 08/27/18 06:10 06:10 14:10 WBC RBC Hgb Hct MCV MCH MCHC RDW Plt Count MPV Absolute Neuts (auto) Neutrophils % Neutrophils % (Manual) 84.0 H Band Neutrophils % 13.0 Lymphocytes % Lymphocytes % (Manual) 2.0 L D Monocytes % Monocytes % (Manual) 1 L Eosinophils % Eosinophils % (Manual) 0.0 Basophils % Basophils % (Manual) 0.0 Myelocytes % (Man) 0 Promyelocytes % (Man) 0 Blast Cells % (Manual) 0 Nucleated RBC % Metamyelocytes 0 Hypochromia 0 Platelet Estimate Normal Platelet Comment Present Polychromasia 1+ Poikilocytosis 0 Anisocytosis 2+ Microcytosis 2+ Macrocytosis 0 Spherocytes 1+ Tear Drop Cells 1+ Ovalocytes 1+ [place] Cells 1+ Acanthocytes (Spur) 1+ Sodium Potassium Chloride Carbon Dioxide Anion Gap BUN Creatinine Creat Clearance w eGFR Random Glucose Lactic Acid Calcium 6.8 L* Total Bilirubin AST ALT Alkaline Phosphatase Total Protein Albumin Urine Color Urine Appearance Urine pH Ur Specific [place] Urine Protein Urine Glucose (UA) Urine Ketones Urine Blood Urine Nitrite Urine Bilirubin Urine Urobilinogen Ur Leukocyte Esterase Urine WBC (Auto) Urine RBC (Auto) Urine Mucus RPR Titer Nonreactive 08/27/18 08/28/18 08/28/18 14:10 06:15 06:15 WBC 13.3 H RBC 2.65 L Hgb 7.3 L Hct 22.4 L MCV 84.4 MCH 27.4 MCHC 32.5 RDW 18.6 H Plt Count 277 MPV 8.5 Absolute Neuts (auto) 12.0 H Neutrophils % 90.1 H Neutrophils % (Manual) Band Neutrophils % Lymphocytes % 5.1 L D Lymphocytes % (Manual) Monocytes % 4.0 Monocytes % (Manual) Eosinophils % 0.4 Eosinophils % (Manual) Basophils % 0.4 Basophils % (Manual) Myelocytes % (Man) Promyelocytes % (Man) Blast Cells % (Manual) Nucleated RBC % 0 Metamyelocytes Hypochromia Platelet Estimate Platelet Comment Polychromasia Poikilocytosis Anisocytosis Microcytosis Macrocytosis Spherocytes Tear Drop Cells Ovalocytes [place] Cells Acanthocytes (Spur) Sodium 134 L Potassium 5.1 Chloride 106 Carbon Dioxide 17 L Anion Gap 11 BUN 100 H Creatinine 3.8 H Creat Clearance w eGFR 17.02 Random Glucose 96 Lactic Acid 2.2 H* Calcium 7.0 L Total Bilirubin 1.4 H AST 40 H ALT 20 Alkaline Phosphatase 297 H Total Protein 4.1 L Albumin 0.8 L Urine Color Urine Appearance Urine pH Ur Specific [place] Urine Protein Urine Glucose (UA) Urine Ketones Urine Blood Urine Nitrite Urine Bilirubin Urine Urobilinogen Ur Leukocyte Esterase Urine WBC (Auto) Urine RBC (Auto) Urine Mucus RPR Titer 08/28/18 06:15 WBC RBC Hgb Hct MCV MCH MCHC RDW Plt Count MPV Absolute Neuts (auto) Neutrophils % Neutrophils % (Manual) Band Neutrophils % Lymphocytes % Lymphocytes % (Manual) Monocytes % Monocytes % (Manual) Eosinophils % Eosinophils % (Manual) Basophils % Basophils % (Manual) Myelocytes % (Man) Promyelocytes % (Man) Blast Cells % (Manual) Nucleated RBC % Metamyelocytes Hypochromia Platelet Estimate Platelet Comment Polychromasia Poikilocytosis Anisocytosis Microcytosis Macrocytosis Spherocytes Tear Drop Cells Ovalocytes [place] Cells Acanthocytes (Spur) Sodium Potassium Chloride Carbon Dioxide Anion Gap BUN Creatinine Creat Clearance w eGFR Random Glucose Lactic Acid Calcium Total Bilirubin AST ALT Alkaline Phosphatase Total Protein Albumin Urine Color Yellow Urine Appearance Slcloudy Urine pH 5.0 Ur Specific [place] 1.015 Urine Protein 2+ H Urine Glucose (UA) Negative Urine Ketones Negative Urine Blood Negative Urine Nitrite Negative Urine Bilirubin Negative Urine Urobilinogen 4.0 e.u/dl Ur Leukocyte Esterase Negative Urine WBC (Auto) 2 Urine RBC (Auto) 1 Urine Mucus Rare RPR Titer S1 S2 RRR Anorexic Lungs decreased Abd - soft, NT, Colostomy functioning Ext- B/L leg edema, left arm edema, penile edema PLAN Sono legs negative for DVT Pelvic MRI noted-- increased size of sacral mass For RT check ct abd/pelvis- no contrast worsening renal function s/p PRBC iv fluids iv antibiotics on fentanyl patch palliative care evaluation Problem List - Problems (1) Intractable back pain Code(s): M54.9 - DORSALGIA, UNSPECIFIED (2) Metastatic colon cancer to liver Code(s): C18.9 - MALIGNANT NEOPLASM OF COLON, UNSPECIFIED; C78.7 - SECONDARY MALIG NEOPLASM OF LIVER AND INTRAHEPATIC BILE DUCT (3) Neuropathy Code(s): G62.9 - POLYNEUROPATHY, UNSPECIFIED (4) Sciatica of left side Code(s): M54.32 - SCIATICA, LEFT SIDE (5) Hypertension Code(s): I10 - ESSENTIAL (PRIMARY) HYPERTENSION
--- NOTE | 2018-08-28 13:27 | PN ---
Progress Note (short form) - Note Progress Note: PROGRESS NOTE FOR HEMATOLOGY/ONCOLOGY Patient seen and examined by me at bedside. Patient is more confused and drowsy today but does report his pain is adequately controlled Otherwise, denies any fever, chills, nausea, vomiting, abdominal pain, chest pain, palpitations, shortness of breath Vital Signs Temperature 97.8 F 08/27/18 10:00 Pulse Rate 92 H 08/27/18 10:00 Respiratory Rate 18 08/27/18 10:00 Blood Pressure 109/74 08/27/18 10:00 O2 Sat by Pulse Oximetry (%) 98 08/27/18 09:00 PHYSICAL EXAMINATION GENERAL: Drowsy, oriented to person and place. No acute distress EYES: conjunctiva clear. ENT: Moist mucous membranes LUNGS: Diminished breath sounds bilaterally with no crackles or wheezes HEART: RRR, normal S1 and S2 GENITAL: Enlarged, edematous penis with no erythema ABDOMEN: Soft, nontender, not distended, normoactive bowel sounds. Colostomy bag in place EXTREMITIES: 1+ pitting edema bilaterally with erythema and warmth on lateral aspect of left leg. Laboratory Tests 08/28/18 06:15 08/28/18 06:15 ASSESSMENT AND PLAN: Patient is a 48 year old male with metastatic rectal cancer with mets to the liver and lungs on 5-FU/Leucovorin who presented with severe left leg pain for > 1 weeks. Patient found to have sepsis and admitted for further monitoring and management. Problem List: Metastatic Rectal Cancer with perirectal mass extending through sciatic notch and into piriformis muscle. HTN ISMAEL Anemia of chronic disease PLAN: -Pain continues to improve with RT. Will continue RT with daily RT for a total of 10 days. -Hgb continues to down trend and has low threshold for blood transfusion. Will transfuse if Hgb <7 -Renal function progressively worsening, despite being on fluids. Zosyn discontinued and now patient on Meropenem. Serology work up sent by Nephrology as well as Abdomen/Pelvic CT sent
--- NOTE | 2018-08-28 15:56 | PN ---
Progress Note, Physician History of Present Illness: Awake, alert No focal complaint at present High grade temp past 24h, lactic acidosis Repeat BC obtained, antibiotic coverage broadened Worsening renal function - Current Medication List Current Medications: Active Medications Acetaminophen (Tylenol -) 650 mg PO Q6H PRN PRN Reason: FEVER Last Admin: 08/28/18 11:04 Dose: 650 mg Alprazolam (Xanax -) 0.5 mg PO Q8H PRN PRN Reason: ANXIETY Carvedilol (Coreg -) 12.5 mg PO BID [facility] Last Admin: 08/28/18 09:59 Dose: 12.5 mg Docusate Sodium (Colace -) 100 mg PO TID [facility] Last Admin: 08/28/18 15:32 Dose: 100 mg Heparin Sodium (Porcine) (Heparin -) 5,000 unit SQ BID [facility] Last Admin: 08/28/18 09:59 Dose: 5,000 unit IV Flush (Vu-Cath Flush) 10 ml IVPUSH PRN PRN PRN Reason: protocol, patency maintenance Last Admin: 08/19/18 06:18 Dose: 10 ml IV Flush (Vu-Cath Flush) 10 ml IVPUSH PRN PRN PRN Reason: FLUSH Meropenem 500 mg/ Dextrose 100 mls @ 200 mls/hr IVPB BID [facility] Last Admin: 08/28/18 10:00 Dose: 200 mls/hr Metronidazole (Flagyl 500mg Premixed Ivpb -) 500 mg in 100 mls @ 100 mls/hr IVPB Q8H-IV [facility] Last Admin: 08/28/18 11:58 Dose: 100 mls/hr Sodium Chloride (Normal Saline -) 1,000 mls @ 75 mls/hr IV ASDIR [facility] Last Admin: 08/28/18 06:49 Dose: 75 mls/hr Miscellaneous (Duragesic Patch Waste) 1 each TD PRN PRN PRN Reason: PAIN Morphine Sulfate (Morphine Sulfate) 4 mg IVPUSH Q4H PRN PRN Reason: PAIN LEVEL 6-10 Last Admin: 08/28/18 09:59 Dose: 4 mg Pantoprazole Sodium (Protonix -) 40 mg PO DAILY [facility] Last Admin: 08/28/18 09:59 Dose: 40 mg Polyethylene Glycol (Miralax (For Daily Use) -) 17 gm PO DAILY [facility] Last Admin: 11/29/18 11:59 Dose: Not Given - Objective Vital Signs: Vital Signs Temperature 99.8 F H 08/28/18 14:51 Pulse Rate 108 H 08/28/18 14:51 Respiratory Rate 18 08/28/18 14:51 Blood Pressure 151/72 08/28/18 14:51 O2 Sat by Pulse Oximetry (%) 98 08/28/18 09:00 Constitutional: Yes: No Distress Cardiovascular: Yes: Regular Rate and Rhythm, S1, S2 Respiratory: Yes: CTA Bilaterally Gastrointestinal: Yes: Normal Bowel Sounds, Soft, Other (+ ostomy). No: Tenderness Edema: Yes Labs: CBC, BMP 08/28/18 06:15 08/28/18 06:15 Assessment/Plan Polymicrobial bactermia, likely GI source Recurrent fever Metastatic ca Azotemia Repeat BC obtained Continue empiric meropenem/ flagyl
[2018-08-28] MEDS ORDERED: PT OWN MED DRAWER 7, Y5N ONE ×2 (21:39→22:35)
--- NOTE | 2018-08-29 00:09 | PN ---
Progress Note (short form) - Note Progress Note: PAtient seen and examined Left leg pain confused anasarca Last Vital Signs Temp Pulse Resp BP Pulse Ox 101.1 F H 103 H 18 108/70 98 08/28/18 17:53 08/28/18 17:53 08/28/18 17:53 08/28/18 17:53 08/28/18 09:00 Cor: RSR, No murmurs, No gallops Lungs: Clear to P&A Abd: Soft, Normal bowel sounds, No organomegaly Ext:LLE edema scrotal edema Labs/meds reviewed A/P 48 y/o with metastatic rectal cancer BRAF mutated/KRAS wild type/ MSI low, with liver/lung mets, s/p surgery, ON FOLFOX/avastin, recent oxaliplatin neuropathy and had been on 5-FU/leucovorin/avastin, recent scans on 08/07 showing progressive disease, comes in with left leg severe pain of 1 week duration. MRI T/L spine show no cord compression Recurrent 6 cm pelvic mass encroaching sciatic foramen satrted RT . 12/07 today Pain medication prior to RT Acute renal failure- worsening renal function. discussed with renal team decrease iv fluids altered mental status -- ? pain meds ? infection discussed with --will stop fentanyl/add ms contin as needed morphine 4mg q4hrs. prn fevers--discussed with ID will switch to meropenem and flagyl
[2018-08-29] MEDS: ALBUMIN HUMAN 25% 12.5 GM/50 ML VIAL IVPB SCH ×4 (00:29→18:37)
[2018-08-29] MEDS: SODIUM CHLORIDE 1,000 ML IV SCH (00:40)
[2018-08-29] MEDS: DOCUSATE SODIUM 100 MG CAPSULE (FP) PO SCH ×3 (05:41→22:18)
[2018-08-29 06:07] LABS: HEP.C VIRUS AB <0.1 s/co ratio (0.0-0.9)
--- NOTE | 2018-08-29 08:52 | PN ---
Progress Note (short form) - Note Progress Note: Patient seen and examined ( note patient seen by Dr. Presley on 08/28- note written -08/29) Very confused Stated he went with his mother today to the doctors office Knows he is in [facility], not year Last Vital Signs Temp Pulse Resp BP Pulse Ox 98.3 F 92 H 18 115/68 98 08/29/18 06:15 08/29/18 06:15 08/29/18 06:15 08/29/18 06:15 08/28/18 21:00 Anasarca HEENT: EZEQUIEL, EOM Intact Oropharynx: No thrush, No mucositis Neck: Supple Cor: RSR, No murmurs, No gallops Lungs: diminished breath sounds - anteriorly Abd: Soft, Normal bowel sounds, No organomegaly, functioning colostomy. Ext: edema-4+; Skin: No rashes, Integument intact Mancia catheter , scrotal edema CBC, BMP 08/28/18 06:15 08/28/18 06:15 Current Medications Generic Name Dose Route Start Last Admin Trade Name Freq PRN Reason Stop Dose Admin Acetaminophen 650 mg 08/23/18 14:35 08/28/18 17:52 Tylenol - PO 650 mg Q6H PRN Administration FEVER Albumin Human 25 gm 08/29/18 00:15 08/29/18 05:42 Albumin Human 25% IVPB 08/29/18 18:16 25 gm Q6H AJ Administration Alprazolam 0.5 mg 08/28/18 12:15 Xanax - PO Q8H PRN ANXIETY Carvedilol 12.5 mg 08/16/18 22:00 08/28/18 22:41 Coreg - PO 12.5 mg BID AJ Administration Docusate Sodium 100 mg 08/16/18 22:00 08/29/18 05:41 Colace - PO 100 mg TID AJ Administration Heparin Sodium (Porcine) 5,000 unit 08/27/18 22:00 08/28/18 23:07 Heparin - SQ 5,000 unit BID [facility] Administration IV Flush 10 ml 08/18/18 22:39 08/19/18 06:18 Vu-Cath Flush IVPUSH 10 ml PRN PRN Administration protocol, patency maintenance IV Flush 10 ml 08/22/18 13:46 Vu-Cath Flush IVPUSH PRN PRN FLUSH Meropenem 500 mg/ Dextrose 100 mls @ 200 mls/hr 08/27/18 17:15 08/28/18 22:41 IVPB 200 mls/hr BID [facility] Administration Metronidazole 500 mg in 100 mls @ 100 mls/hr 08/27/18 18:00 08/29/18 02:29 Flagyl 500mg Premixed Ivpb - IVPB 100 mls/hr Q8H-IV [facility] Administration Sodium Chloride 1,000 mls @ 75 mls/hr 08/28/18 00:07 08/29/18 00:40 Normal Saline - IV 75 mls/hr ASDIR AJ Administration Miscellaneous 1 each 08/26/18 18:51 Duragesic Patch Waste TD PRN PRN PAIN Morphine Sulfate 4 mg 08/27/18 20:35 08/28/18 16:14 Morphine Sulfate IVPUSH 4 mg Q4H PRN Administration PAIN LEVEL 6-10 Pantoprazole Sodium 40 mg 08/17/18 10:00 08/28/18 09:59 Protonix - PO 40 mg DAILY AJ Administration Polyethylene Glycol 17 gm 08/19/18 10:00 08/28/18 11:59 Miralax (For Daily Use) - PO Not Given DAILY [facility] Impression: Metastatic colon ca Liver mets Confusion Fevers, lactic acidosis ISMAEL Pain management Anasarca Continue with antibiotics per ID Transfuse packed cells Check NH3 level Morphine prn pain management Non contrast head CT PRN morphine for pain Transfuse packed cells
[2018-08-29] MEDS: MEROPENEM 500 MG in DEXTROSE 5%-WATER 100 ML IVPB SCH ×2 (10:00→22:18)
[2018-08-29] MEDS: POLYETHYLENE GLYCOL 3350 119 GM BTL PO SCH (10:00)
[2018-08-29] MEDS: PANTOPRAZOLE 40 MG TABLET (FP) PO SCH (10:10)
[2018-08-29] MEDS: CARVEDILOL 12.5 MG TABLET (FP) PO SCH ×2 (10:10→22:18)
[2018-08-29] MEDS: morphine SULFATE 4 MG/ML VIAL IVPUSH PRN (10:10)
[2018-08-29] MEDS: HEPARIN NA (PORCINE) 5,000 UNITS/ML 1ML VIAL SQ SCH ×2 (10:11→22:18)
[2018-08-29 10:36] LABS: BASO % 0.2 % (0-2.0); EOS % 0.3 % (0-4.5); HEMATOCRIT 21.8 % (35.4-49); HEMOGLOBIN 7.5 GM/dL (11.7-16.9); LYMPH % 2.4 % (8-40); MCH 28.2 pg (25.7-33.7); MCHC 34.3 g/dl (32.0-35.9); MEAN CELL VOLUME 82.4 fl (80-96); NEUT % 93.1 % (42.8-82.8); PLATELET COUNT 349 K/MM3 (134-434); RBC 2.64 M/mm3 (4.00-5.60); WHITE BLOOD COUNT 11.6 K/mm3 (4.0-10.0)
--- NOTE | 2018-08-29 10:50 | PN ---
Progress Note (short form) - Note Progress Note: pt seen/ examined chart reviewed awake/ confused. Vital Signs Temp 98.3 F 08/29/18 06:15 Pulse 92 H 08/29/18 06:15 Resp 18 08/29/18 06:15 BP 115/68 08/29/18 06:15 Pulse Ox 98 08/28/18 21:00 Intake & Output 08/28/18 08/28/18 08/29/18 11:59 23:59 11:59 Intake Total 1100 825 990 Output Total 200 500 Balance 900 325 990 Intake: IV 900 525 600 saline lock 900 525 600 IVPB 200 300 150 Oral 240 Output: Urine 200 500 Mancia 200 500 Other: Voiding Method Indwelling Catheter Indwelling Catheter Indwelling Catheter Bowel Movement No Body Mass Index (BMI) 26.1 Active Medications Acetaminophen (Tylenol -) 650 mg PO Q6H PRN PRN Reason: FEVER Last Admin: 08/28/18 17:52 Dose: 650 mg Albumin Human (Albumin Human 25%) 25 gm IVPB Q6H [facility] Stop: 08/29/18 18:16 Last Admin: 08/29/18 05:42 Dose: 25 gm Alprazolam (Xanax -) 0.5 mg PO Q8H PRN PRN Reason: ANXIETY Last Admin: 08/29/18 10:10 Dose: 0.5 mg Carvedilol (Coreg -) 12.5 mg PO BID [facility] Last Admin: 08/29/18 10:10 Dose: 12.5 mg Docusate Sodium (Colace -) 100 mg PO TID [facility] Last Admin: 08/29/18 05:41 Dose: 100 mg Heparin Sodium (Porcine) (Heparin -) 5,000 unit SQ BID [facility] Last Admin: 08/29/18 10:11 Dose: 5,000 unit IV Flush (Vu-Cath Flush) 10 ml IVPUSH PRN PRN PRN Reason: protocol, patency maintenance Last Admin: 08/19/18 06:18 Dose: 10 ml IV Flush (Vu-Cath Flush) 10 ml IVPUSH PRN PRN PRN Reason: FLUSH Meropenem 500 mg/ Dextrose 100 mls @ 200 mls/hr IVPB BID [facility] Last Admin: 08/28/18 22:41 Dose: 200 mls/hr Metronidazole (Flagyl 500mg Premixed Ivpb -) 500 mg in 100 mls @ 100 mls/hr IVPB Q8H-IV [facility] Last Admin: 08/29/18 10:10 Dose: 100 mls/hr Sodium Chloride (Normal Saline -) 1,000 mls @ 75 mls/hr IV ASDIR [facility] Last Admin: 08/29/18 00:40 Dose: 75 mls/hr Miscellaneous (Duragesic Patch Waste) 1 each TD PRN PRN PRN Reason: PAIN Morphine Sulfate (Morphine Sulfate) 4 mg IVPUSH Q4H PRN PRN Reason: PAIN LEVEL 6-10 Last Admin: 08/29/18 10:10 Dose: 4 mg Pantoprazole Sodium (Protonix -) 40 mg PO DAILY [facility] Last Admin: 08/29/18 10:10 Dose: 40 mg Polyethylene Glycol (Miralax (For Daily Use) -) 17 gm PO DAILY [facility] Last Admin: 08/28/18 11:59 Dose: Not Given todays - labs including ammonia level - pending ct - head - ordered Physical Exam Awake/ confused S1 S2 RRR Anorexic Lungs decreased at bases Abd - soft, NT, Colostomy functioning Ext- B/L leg edema, left arm edema, penile edema PLAN continue present care ammonia level/ ct head ordered palliative care evaluation will follow Problem List - Problems (1) Intractable back pain Code(s): M54.9 - DORSALGIA, UNSPECIFIED (2) Metastatic colon cancer to liver Code(s): C18.9 - MALIGNANT NEOPLASM OF COLON, UNSPECIFIED; C78.7 - SECONDARY MALIG NEOPLASM OF LIVER AND INTRAHEPATIC BILE DUCT (3) Neuropathy Code(s): G62.9 - POLYNEUROPATHY, UNSPECIFIED (4) Sciatica of left side Code(s): M54.32 - SCIATICA, LEFT SIDE (5) Hypertension Code(s): I10 - ESSENTIAL (PRIMARY) HYPERTENSION Problem List - Problems (1) Neuropathy Code(s): G62.9 - POLYNEUROPATHY, UNSPECIFIED (2) Sciatica of left side Code(s): M54.32 - SCIATICA, LEFT SIDE (3) Adenocarcinoma Code(s): C80.1 - MALIGNANT (PRIMARY) NEOPLASM, UNSPECIFIED (4) Hypertension Code(s): I10 - ESSENTIAL (PRIMARY) HYPERTENSION (5) Old cerebrovascular accident (CVA) without late effect Code(s): Z86.73 - PRSNL HX OF TIA (TIA), AND CEREB INFRC W/O RESID DEFICITS
[2018-08-29 12:20] LABS: ALK PHOS 295 U/L (45-117); ANION GAP 11 MMOL/L (8-16); BILIRUBIN,TOTAL 1.1 mg/dL (0.2-1); CALCIUM 7.2 mg/dL (8.5-10.1); CHLORIDE 108 mmol/L (98-107); CO2 17 mmol/L (21-32); GLUCOSE,RANDOM 101 mg/dL (74-106); POTASSIUM 5.4 mmol/L (3.5-5.1); SGOT/AST 36 U/L (15-37); SGPT/ALT 16 U/L (13-61); SODIUM 136 mmol/L (136-145); TOT PROT 4.2 g/dl (6.4-8.2)
[2018-08-29 12:24] LABS: BLOOD UREA NITROGEN 108 mg/dL (7-18)
[2018-08-29] MEDS ORDERED: PT OWN MED DRAWER 7, Y5N ONE ×4 (13:35→21:48)
[2018-08-29] MEDS: SODIUM BICARBONATE 650 MG TABLET PO SCH ×2 (13:36→22:18)
[2018-08-29] MEDS: MIDODRINE HCL 5 MG TABLET PO SCH ×2 (14:00→18:37)
[2018-08-29] MEDS: ACETAMINOPHEN 325 MG TABLET (FP) PO PRN (14:29)
[2018-08-29] MEDS ORDERED: SODIUM CHLORIDE 250 ML IV PRN ×2 (14:40→20:10)
--- NOTE | 2018-08-29 14:40 | PN ---
Progress Note (short form) - Note Progress Note: Renal follow up for ISMAEL Pt seen and examined at the bedside no acute complaints Vital Signs Temperature 99.6 F 08/28/18 06:00 Pulse Rate 96 H 08/28/18 06:00 Respiratory Rate 18 08/28/18 06:00 Blood Pressure 122/58 L 08/28/18 06:00 O2 Sat by Pulse Oximetry (%) 98 08/27/18 21:00 Intake & Output 08/25/18 08/26/18 08/27/18 08/28/18 23:59 23:59 23:59 23:59 Intake Total 3650 2575 1825 1100 Output Total 2401 1000 200 200 Balance 1249 1575 1625 900 NAD Soft NT/ND Abd, Ostomy in place +++ edema in LE and mild edema in UE CBC, BMP 08/28/18 06:15 08/28/18 06:15 Current Medications Acetaminophen (Tylenol -) 650 mg PO Q6H PRN PRN Reason: FEVER Last Admin: 08/28/18 11:04 Dose: 650 mg Carvedilol (Coreg -) 12.5 mg PO BID [facility] Last Admin: 08/28/18 09:59 Dose: 12.5 mg Docusate Sodium (Colace -) 100 mg PO TID [facility] Last Admin: 08/28/18 06:10 Dose: Not Given Heparin Sodium (Porcine) (Heparin -) 5,000 unit SQ BID [facility] Last Admin: 08/28/18 09:59 Dose: 5,000 unit IV Flush (Vu-Cath Flush) 10 ml IVPUSH PRN PRN PRN Reason: protocol, patency maintenance Last Admin: 08/19/18 06:18 Dose: 10 ml IV Flush (Vu-Cath Flush) 10 ml IVPUSH PRN PRN PRN Reason: FLUSH Meropenem 500 mg/ Dextrose 100 mls @ 200 mls/hr IVPB BID [facility] Last Admin: 08/28/18 10:00 Dose: 200 mls/hr Metronidazole (Flagyl 500mg Premixed Ivpb -) 500 mg in 100 mls @ 100 mls/hr IVPB Q8H-IV [facility] Last Admin: 08/28/18 01:29 Dose: 100 mls/hr Sodium Chloride (Normal Saline -) 1,000 mls @ 75 mls/hr IV ASDIR [facility] Last Admin: 08/28/18 06:49 Dose: 75 mls/hr Miscellaneous (Duragesic Patch Waste) 1 each TD PRN PRN PRN Reason: PAIN Morphine Sulfate (Morphine Sulfate) 4 mg IVPUSH Q4H PRN PRN Reason: PAIN LEVEL 6-10 Last Admin: 08/28/18 09:59 Dose: 4 mg Pantoprazole Sodium (Protonix -) 40 mg PO DAILY [facility] Last Admin: 08/28/18 09:59 Dose: 40 mg Polyethylene Glycol (Miralax (For Daily Use) -) 17 gm PO DAILY [facility] Last Admin: 08/27/18 09:39 Dose: 17 grams 48 year old gentleman with hx of Colon Ca on Chemo, Hypertension, CVA who presented with severe back pain and noted to develop ISMAEL during the hospital course. #Progressive worsening of renal function with decreasing urine output(urine Na very low indicating preserved tubular function, Urine Eos pending, no hydronephrosis seen on US) #Anion gap metabolic acidosis Discussed current status and worsening renal function with family and patient as will as with Dr. Presley and Dr. Fry Pt this time renal function is getting progressively worse will start trial of albumin infusion to help preserved intravascular volume however unlikely to improve renal function As per Onocology pt is a candidate for additional Chemo Therapy that may improve his life expectancy so it would be appropriate to be aggressive with [employer] Risks and benefits of dialysis discussed with patient, patients and mother and they are agreeable to proceed. will request vascular to place dialysis catheter will plan for first tx tomorrow check repeat BMP this afternoon Change diet to renal diet Sami Pulido DO
[2018-08-29 14:55] LABS: ANISOCYTOSIS 3+; MACROCYTOSIS 0; PLATELET ESTIMATE NORMAL; TARGET CELLS 1+
[2018-08-29] MEDS ORDERED: LIDOCAINE HCL 1%, 10 MG/ML (20ML VIAL) ONE (15:01)
--- NOTE | 2018-08-29 15:33 | PN ---
Progress Note, Physician History of Present Illness: Awake, confused C/O generalized pain Febrile overnight Repeat BC pending Worsening renal function Dialysis catheter inserted. For HD - Current Medication List Current Medications: Active Medications Acetaminophen (Tylenol -) 650 mg PO Q6H PRN PRN Reason: FEVER Last Admin: 08/29/18 14:29 Dose: 650 mg Albumin Human (Albumin Human 25%) 25 gm IVPB Q6H [facility] Stop: 08/29/18 18:16 Last Admin: 08/29/18 12:30 Dose: 25 gm Alprazolam (Xanax -) 0.5 mg PO Q8H PRN PRN Reason: ANXIETY Last Admin: 08/29/18 10:10 Dose: 0.5 mg Carvedilol (Coreg -) 12.5 mg PO BID [facility] Last Admin: 08/29/18 10:10 Dose: 12.5 mg Docusate Sodium (Colace -) 100 mg PO TID [facility] Last Admin: 08/29/18 13:37 Dose: 100 mg Heparin Sodium (Porcine) (Heparin -) 5,000 unit SQ BID [facility] Last Admin: 08/29/18 10:11 Dose: 5,000 unit IV Flush (Vu-Cath Flush) 10 ml IVPUSH PRN PRN PRN Reason: protocol, patency maintenance Last Admin: 08/19/18 06:18 Dose: 10 ml IV Flush (Vu-Cath Flush) 10 ml IVPUSH PRN PRN PRN Reason: FLUSH Meropenem 500 mg/ Dextrose 100 mls @ 200 mls/hr IVPB BID [facility] Last Admin: 08/29/18 10:00 Dose: 200 mls/hr Metronidazole (Flagyl 500mg Premixed Ivpb -) 500 mg in 100 mls @ 100 mls/hr IVPB Q8H-IV [facility] Last Admin: 08/29/18 10:10 Dose: 100 mls/hr Sodium Chloride (Normal Saline -) 250 mls @ 3,000 mls/hr IV PRN PRN PRN Reason: Hypotension during Dialysis Stop: 08/30/18 14:40 Midodrine (Proamatine -) 5 mg PO TID-MID [facility] Miscellaneous (Duragesic Patch Waste) 1 each TD PRN PRN PRN Reason: PAIN Morphine Sulfate (Morphine Sulfate) 4 mg IVPUSH Q4H PRN PRN Reason: PAIN LEVEL 6-10 Last Admin: 08/29/18 10:10 Dose: 4 mg Pantoprazole Sodium (Protonix -) 40 mg PO DAILY [facility] Last Admin: 08/29/18 10:10 Dose: 40 mg Polyethylene Glycol (Miralax (For Daily Use) -) 17 gm PO DAILY [facility] Last Admin: 08/28/18 11:59 Dose: Not Given Sodium Bicarbonate (Sodium Bicarbonate -) 650 mg PO BID [facility] Last Admin: 08/29/18 13:36 Dose: 650 mg - Objective Vital Signs: Vital Signs Temperature 99.6 F 08/29/18 14:52 Pulse Rate 101 H 08/29/18 14:52 Respiratory Rate 18 08/29/18 14:52 Blood Pressure 129/61 08/29/18 14:52 O2 Sat by Pulse Oximetry (%) 98 08/28/18 21:00 Constitutional: Yes: No Distress Eyes: Yes: Conjunctiva Clear Cardiovascular: Yes: Regular Rate and Rhythm, S1, S2 Respiratory: Yes: CTA Bilaterally Gastrointestinal: Yes: Normal Bowel Sounds, Soft, Other (+ ostomy). No: Tenderness Edema: Yes Edema: LLE: 2+, RLE: 2+ Integumentary: Yes: Other (port site no erythema) Labs: CBC, BMP 08/29/18 10:15 08/29/18 10:15 Assessment/Plan Polymicrobial bactermia, likely GI source Recurrent fever Metastatic ca Renal failure Repeat BC pending Continue empiric meropenem/ flagyl
[2018-08-29 16:37] LABS: ANION GAP 12 MMOL/L (8-16); CALCIUM 7.2 mg/dL (8.5-10.1); CHLORIDE 110 mmol/L (98-107); CO2 16 mmol/L (21-32); CREATININE 3.9 mg/dL (0.55-1.3); GLUCOSE,RANDOM 85 mg/dL (74-106); POTASSIUM 5.3 mmol/L (3.5-5.1); SODIUM 137 mmol/L (136-145)
[2018-08-29 16:41] LABS: BLOOD UREA NITROGEN 111 mg/dL (7-18)
[2018-08-29 23:13] LABS: COMPLEMENT TOTAL(CH50) 54 U/mL (>41)
[2018-08-30] MEDS: ACETAMINOPHEN 325 MG TABLET (FP) PO PRN ×3 (01:27→22:01)
[2018-08-30] MEDS: PORTA CATH FLUSH 10 ML IVPUSH PRN (05:45)
[2018-08-30] MEDS: DOCUSATE SODIUM 100 MG CAPSULE (FP) PO SCH ×3 (05:46→22:02)
[2018-08-30 07:32] LABS: BASO % 0.5 % (0-2.0); EOS % 0.2 % (0-4.5); HEMATOCRIT 22.9 % (35.4-49); HEMOGLOBIN 7.5 GM/dL (11.7-16.9); LYMPH % 3.5 % (8-40); MCH 27.5 pg (25.7-33.7); MCHC 32.8 g/dl (32.0-35.9); MEAN CELL VOLUME 83.8 fl (80-96); MEAN PLT VOLUME 8.1 fl (7.5-11.1); MONO % 4.4 % (3.8-10.2); NEUT % 91.4 % (42.8-82.8); PLATELET COUNT 290 K/MM3 (134-434); RBC 2.74 M/mm3 (4.00-5.60); WHITE BLOOD COUNT 10.8 K/mm3 (4.0-10.0)
[2018-08-30 08:04] LABS: ALK PHOS 272 U/L (45-117); ANION GAP 9 MMOL/L (8-16); BLOOD UREA NITROGEN 88 mg/dL (7-18); CHLORIDE 106 mmol/L (98-107); CO2 22 mmol/L (21-32); CREATININE 3.3 mg/dL (0.55-1.3); GLUCOSE,RANDOM 83 mg/dL (74-106); MAGNESIUM 2.6 mg/dL (1.8-2.4); PHOSPHOROUS 4.7 mg/dL (2.5-4.9); POTASSIUM 4.9 mmol/L (3.5-5.1); SGOT/AST 38 U/L (15-37); SGPT/ALT 11 U/L (13-61); SODIUM 138 mmol/L (136-145)
[2018-08-30] MEDS ORDERED: PT OWN MED DRAWER 7, Y5N ONE (09:34)
[2018-08-30] MEDS: SODIUM BICARBONATE 650 MG TABLET PO SCH ×2 (09:51→22:02)
[2018-08-30] MEDS: MEROPENEM 500 MG in DEXTROSE 5%-WATER 100 ML IVPB SCH ×2 (09:51→22:02)
[2018-08-30] MEDS: CARVEDILOL 12.5 MG TABLET (FP) PO SCH ×2 (09:51→22:02)
[2018-08-30] MEDS: PANTOPRAZOLE 40 MG TABLET (FP) PO SCH (09:52)
[2018-08-30] MEDS: MIDODRINE HCL 5 MG TABLET PO SCH ×3 (09:52→17:51)
[2018-08-30] MEDS: POLYETHYLENE GLYCOL 3350 119 GM BTL PO SCH (10:05)
[2018-08-30] MEDS: HEPARIN NA (PORCINE) 5,000 UNITS/ML 1ML VIAL SQ SCH ×2 (10:06→22:02)
[2018-08-30 11:31] LABS: ANISOCYTOSIS 1+; MACROCYTOSIS 0; OVALOCYTE 1+; PLATELET ESTIMATE NORMAL
[2018-08-30] MEDS ORDERED: INSULIN (NOVOLOG) ASPART 100 UNITS/ML 10ML VIAL ONE (11:31)
--- NOTE | 2018-08-30 12:44 | PN ---
Progress Note (short form) - Note Progress Note: Pt seen/ examined events noted/ chart reviewed had discussed with Dr. Pulido yesterday and had dialysis yesterday awake/comfortable confused Vital Signs Temp 98.5 F 08/30/18 06:13 Pulse 88 08/30/18 06:13 Resp 18 08/30/18 06:13 BP 105/74 08/30/18 06:13 Pulse Ox 98 08/29/18 21:00 Intake & Output 08/29/18 08/30/18 08/30/18 23:59 11:59 23:59 Intake Total 390 150 Output Total 500 100 Balance -110 50 Intake: IV 100 saline lock 100 Oral 150 Oral Supplement 240 Albumin 50 Output: Urine 500 100 Mancia 500 100 Other: Voiding Method Indwelling Catheter Indwelling Catheter Bowel Movement No Active Medications Acetaminophen (Tylenol -) 650 mg PO Q6H PRN PRN Reason: FEVER Last Admin: 08/30/18 01:27 Dose: 650 mg Alprazolam (Xanax -) 0.5 mg PO Q8H PRN PRN Reason: ANXIETY Last Admin: 08/29/18 10:10 Dose: 0.5 mg Carvedilol (Coreg -) 12.5 mg PO BID [facility] Last Admin: 08/30/18 09:51 Dose: 12.5 mg Docusate Sodium (Colace -) 100 mg PO TID [facility] Last Admin: 08/30/18 05:46 Dose: 100 mg Heparin Sodium (Porcine) (Heparin -) 5,000 unit SQ BID [facility] Last Admin: 08/30/18 10:06 Dose: 5,000 unit IV Flush (Vu-Cath Flush) 10 ml IVPUSH PRN PRN PRN Reason: protocol, patency maintenance Last Admin: 08/30/18 05:45 Dose: 10 ml IV Flush (Vu-Cath Flush) 10 ml IVPUSH PRN PRN PRN Reason: FLUSH Meropenem 500 mg/ Dextrose 100 mls @ 200 mls/hr IVPB BID [facility] Last Admin: 08/30/18 09:51 Dose: 200 mls/hr Metronidazole (Flagyl 500mg Premixed Ivpb -) 500 mg in 100 mls @ 100 mls/hr IVPB Q8H-IV [facility] Last Admin: 08/30/18 10:30 Dose: 100 mls/hr Sodium Chloride (Normal Saline -) 250 mls @ 3,000 mls/hr IV PRN PRN PRN Reason: Hypotension during Dialysis Stop: 08/30/18 14:40 Sodium Chloride (Normal Saline -) 250 mls @ 3,000 mls/hr IV PRN PRN PRN Reason: Hypotension during Dialysis Stop: 08/30/18 20:10 Midodrine (Proamatine -) 5 mg PO TID-MID [facility] Last Admin: 08/30/18 09:52 Dose: 5 mg Miscellaneous (Duragesic Patch Waste) 1 each TD PRN PRN PRN Reason: PAIN Morphine Sulfate (Morphine Sulfate) 4 mg IVPUSH Q4H PRN PRN Reason: PAIN LEVEL 6-10 Last Admin: 08/29/18 10:10 Dose: 4 mg Pantoprazole Sodium (Protonix -) 40 mg PO DAILY [facility] Last Admin: 08/30/18 09:52 Dose: 40 mg Polyethylene Glycol (Miralax (For Daily Use) -) 17 gm PO DAILY [facility] Last Admin: 08/30/18 10:05 Dose: 17 grams Sodium Bicarbonate (Sodium Bicarbonate -) 650 mg PO BID [facility] Last Admin: 08/30/18 09:51 Dose: 650 mg CBC, BMP 08/30/18 06:00 08/30/18 06:00 Microbiology 08/27/18 13:55 Blood Culture - Preliminary Blood - Vu Cath NO GROWTH OBTAINED AFTER 48 HOURS, INCUBATION TO CONTINUE FOR 3 DAYS. 08/27/18 14:10 Blood Culture - Preliminary Blood - Peripheral Venous NO GROWTH OBTAINED AFTER 48 HOURS, INCUBATION TO CONTINUE FOR 3 DAYS. 08/18/18 21:00 Blood Culture - Preliminary Blood - Vu Cath Staphylococcus Saccharolyticus Anaerobic Gram Neg Bacilli 08/18/18 21:00 Blood Culture - Preliminary Blood - Vu Cath Anaerobic Gram Neg Bacilli Physical Exam Awake/ confused S1 S2 RRR Lungs decreased at bases Abd - soft, NT, Colostomy functioning Ext- B/L leg edema, left arm edema, penile edema PLAN continue present care dialysis per renal oncology following will follow Problem List - Problems (1) Intractable back pain Code(s): M54.9 - DORSALGIA, UNSPECIFIED (2) Metastatic colon cancer to liver Code(s): C18.9 - MALIGNANT NEOPLASM OF COLON, UNSPECIFIED; C78.7 - SECONDARY MALIG NEOPLASM OF LIVER AND INTRAHEPATIC BILE DUCT (3) Neuropathy Code(s): G62.9 - POLYNEUROPATHY, UNSPECIFIED (4) Sciatica of left side Code(s): M54.32 - SCIATICA, LEFT SIDE (5) Hypertension Code(s): I10 - ESSENTIAL (PRIMARY) HYPERTENSION Problem List - Problems (1) Neuropathy Code(s): G62.9 - POLYNEUROPATHY, UNSPECIFIED (2) Sciatica of left side Code(s): M54.32 - SCIATICA, LEFT SIDE (3) Adenocarcinoma Code(s): C80.1 - MALIGNANT (PRIMARY) NEOPLASM, UNSPECIFIED (4) Hypertension Code(s): I10 - ESSENTIAL (PRIMARY) HYPERTENSION (5) Old cerebrovascular accident (CVA) without late effect Code(s): Z86.73 - PRSNL HX OF TIA (TIA), AND CEREB INFRC W/O RESID DEFICITS Problem List - Problems (1) Neuropathy Code(s): G62.9 - POLYNEUROPATHY, UNSPECIFIED (2) Sciatica of left side Code(s): M54.32 - SCIATICA, LEFT SIDE (3) Adenocarcinoma Code(s): C80.1 - MALIGNANT (PRIMARY) NEOPLASM, UNSPECIFIED (4) Hypertension Code(s): I10 - ESSENTIAL (PRIMARY) HYPERTENSION (5) Old cerebrovascular accident (CVA) without late effect Code(s): Z86.73 - PRSNL HX OF TIA (TIA), AND CEREB INFRC W/O RESID DEFICITS
[2018-08-30] MEDS: morphine SULFATE 4 MG/ML VIAL IVPUSH PRN (14:17)
--- NOTE | 2018-08-30 14:24 | PN ---
Progress Note (short form) - Note Progress Note: PAtient seen and examined Left leg pain confused anasarca Last Vital Signs Temp Pulse Resp BP Pulse Ox 97 F L 96 H 18 128/80 99 08/30/18 14:45 08/30/18 14:45 08/30/18 14:45 08/30/18 14:45 08/30/18 09:00 Cor: RSR, No murmurs, No gallops Lungs: Clear to P&A Abd: Soft, Normal bowel sounds, No organomegaly Ext:LLE edema scrotal edema Labs/meds reviewed A/P 48 y/o with metastatic rectal cancer BRAF mutated/KRAS wild type/ MSI low, with liver/lung mets, s/p surgery, ON FOLFOX/avastin, recent oxaliplatin neuropathy and had been on 5-FU/leucovorin/avastin, recent scans on 08/07 showing progressive disease, comes in with left leg severe pain of 1 week duration. MRI T/L spine show no cord compression Recurrent 6 cm pelvic mass encroaching sciatic foramen satrted RT . 01/07 Pain medication prior to RT Acute renal failure- worsening renal function. started dialysis altered mental status -- ? pain meds ? infection discussed with --will stop fentanyl/add ms contin as needed morphine 4mg q4hrs. prn fevers--discussed with ID ? tumor fevers will switch to meropenem and flagyl had discussed overall condition with patients and mother earlier in the week
--- NOTE | 2018-08-30 15:27 | PN ---
Progress Note (short form) - Note Progress Note: Colon Ca on Chemo, Hypertension, CVA Severe back pain Hosp acquired ISMAEL Current Medications Acetaminophen (Tylenol -) 650 mg PO Q6H PRN PRN Reason: FEVER Last Admin: 08/30/18 14:24 Dose: 650 mg Alprazolam (Xanax -) 0.5 mg PO Q8H PRN PRN Reason: ANXIETY Last Admin: 08/29/18 10:10 Dose: 0.5 mg Carvedilol (Coreg -) 12.5 mg PO BID [facility] Last Admin: 08/30/18 09:51 Dose: 12.5 mg Docusate Sodium (Colace -) 100 mg PO TID [facility] Last Admin: 08/30/18 14:16 Dose: 100 mg Heparin Sodium (Porcine) (Heparin -) 5,000 unit SQ BID [facility] Last Admin: 08/30/18 10:06 Dose: 5,000 unit IV Flush (Vu-Cath Flush) 10 ml IVPUSH PRN PRN PRN Reason: protocol, patency maintenance Last Admin: 08/30/18 05:45 Dose: 10 ml IV Flush (Vu-Cath Flush) 10 ml IVPUSH PRN PRN PRN Reason: FLUSH Meropenem 500 mg/ Dextrose 100 mls @ 200 mls/hr IVPB BID [facility] Last Admin: 08/30/18 09:51 Dose: 200 mls/hr Metronidazole (Flagyl 500mg Premixed Ivpb -) 500 mg in 100 mls @ 100 mls/hr IVPB Q8H-IV [facility] Last Admin: 08/30/18 10:30 Dose: 100 mls/hr Sodium Chloride (Normal Saline -) 250 mls @ 3,000 mls/hr IV PRN PRN PRN Reason: Hypotension during Dialysis Stop: 08/30/18 14:40 Sodium Chloride (Normal Saline -) 250 mls @ 3,000 mls/hr IV PRN PRN PRN Reason: Hypotension during Dialysis Stop: 08/30/18 20:10 Midodrine (Proamatine -) 5 mg PO TID-MID [facility] Last Admin: 08/30/18 14:16 Dose: 5 mg Miscellaneous (Duragesic Patch Waste) 1 each TD PRN PRN PRN Reason: PAIN Morphine Sulfate (Morphine Sulfate) 4 mg IVPUSH Q4H PRN PRN Reason: PAIN LEVEL 6-10 Last Admin: 08/30/18 14:17 Dose: 4 mg Pantoprazole Sodium (Protonix -) 40 mg PO DAILY [facility] Last Admin: 08/30/18 09:52 Dose: 40 mg Polyethylene Glycol (Miralax (For Daily Use) -) 17 gm PO DAILY [facility] Last Admin: 08/30/18 10:05 Dose: 17 grams Sodium Bicarbonate (Sodium Bicarbonate -) 650 mg PO BID [facility] Last Admin: 08/30/18 09:51 Dose: 650 mg Last Vital Signs Temp Pulse Resp BP Pulse Ox 97 F L 96 H 18 128/80 98 08/30/18 14:45 08/30/18 14:45 08/30/18 14:45 08/30/18 14:45 08/29/18 21:00 O/E alert in nad lungs shawanda heart reg abd soft ext ++edema CBC, BMP 08/30/18 06:00 08/30/18 06:00 IMP- colon ca ESRD stable on dialysis Plan- HD Saturday
[2018-08-31] MEDS: DOCUSATE SODIUM 100 MG CAPSULE (FP) PO SCH ×3 (06:17→22:03)
[2018-08-31] MEDS ORDERED: PT OWN MED DRAWER 7, Y5N ONE ×3 (07:38→20:21)
[2018-08-31] MEDS: CARVEDILOL 12.5 MG TABLET (FP) PO SCH ×2 (09:20→22:03)
[2018-08-31] MEDS: MEROPENEM 500 MG in DEXTROSE 5%-WATER 100 ML IVPB SCH ×2 (09:21→22:04)
[2018-08-31] MEDS: MIDODRINE HCL 5 MG TABLET PO SCH ×3 (09:21→17:39)
[2018-08-31] MEDS: HEPARIN NA (PORCINE) 5,000 UNITS/ML 1ML VIAL SQ SCH ×2 (09:21→22:04)
[2018-08-31] MEDS: POLYETHYLENE GLYCOL 3350 119 GM BTL PO SCH (09:21)
[2018-08-31] MEDS: PANTOPRAZOLE 40 MG TABLET (FP) PO SCH (09:22)
[2018-08-31] MEDS: SODIUM BICARBONATE 650 MG TABLET PO SCH ×2 (09:22→22:04)
--- NOTE | 2018-08-31 11:31 | PN ---
Progress Note (short form) - Note Progress Note: awake/comfortable today all f/u noted Vital Signs Temp 98.3 F 08/31/18 06:36 Pulse 88 08/31/18 06:36 Resp 18 08/31/18 06:36 BP 125/77 08/31/18 06:36 Pulse Ox 99 08/30/18 21:00 Intake & Output 08/30/18 08/30/18 08/31/18 11:59 23:59 11:59 Intake Total 150 250 200 Output Total 100 400 100 Balance 50 -150 100 Intake: Oral 150 250 200 Output: Urine 100 400 100 Mancia 100 400 100 Other: Voiding Method Indwelling Catheter Indwelling Catheter Indwelling Catheter Bowel Movement No No Active Medications Acetaminophen (Tylenol -) 650 mg PO Q6H PRN PRN Reason: FEVER Last Admin: 08/30/18 22:01 Dose: 650 mg Alprazolam (Xanax -) 0.5 mg PO Q8H PRN PRN Reason: ANXIETY Last Admin: 08/29/18 10:10 Dose: 0.5 mg Carvedilol (Coreg -) 12.5 mg PO BID [facility] Last Admin: 08/31/18 09:20 Dose: 12.5 mg Docusate Sodium (Colace -) 100 mg PO TID [facility] Last Admin: 08/31/18 06:17 Dose: 100 mg Heparin Sodium (Porcine) (Heparin -) 5,000 unit SQ BID [facility] Last Admin: 08/31/18 09:21 Dose: 5,000 unit IV Flush (Vu-Cath Flush) 10 ml IVPUSH PRN PRN PRN Reason: protocol, patency maintenance Last Admin: 08/30/18 05:45 Dose: 10 ml IV Flush (Vu-Cath Flush) 10 ml IVPUSH PRN PRN PRN Reason: FLUSH Meropenem 500 mg/ Dextrose 100 mls @ 200 mls/hr IVPB BID [facility] Last Admin: 08/31/18 09:21 Dose: 200 mls/hr Metronidazole (Flagyl 500mg Premixed Ivpb -) 500 mg in 100 mls @ 100 mls/hr IVPB Q8H-IV [facility] Last Admin: 08/31/18 01:58 Dose: 100 mls/hr Sodium Chloride (Normal Saline -) 250 mls @ 3,000 mls/hr IV PRN PRN PRN Reason: Hypotension during Dialysis Stop: 08/30/18 20:10 Midodrine (Proamatine -) 5 mg PO TID-MID [facility] Last Admin: 08/31/18 09:21 Dose: 5 mg Miscellaneous (Duragesic Patch Waste) 1 each TD PRN PRN PRN Reason: PAIN Pantoprazole Sodium (Protonix -) 40 mg PO DAILY [facility] Last Admin: 08/31/18 09:22 Dose: 40 mg Polyethylene Glycol (Miralax (For Daily Use) -) 17 gm PO DAILY [facility] Last Admin: 08/31/18 09:21 Dose: 17 grams Sodium Bicarbonate (Sodium Bicarbonate -) 650 mg PO BID [facility] Last Admin: 08/31/18 09:22 Dose: 650 mg CBC, BMP 08/30/18 06:00 08/30/18 06:00 Microbiology 08/18/18 21:00 Blood Culture - Preliminary Blood - Vu Cath Anaerobic Gram Neg Bacilli 08/27/18 13:55 Blood Culture - Preliminary Blood - Vu Cath NO GROWTH OBTAINED AFTER 72 HOURS, INCUBATION TO CONTINUE FOR 2 DAYS. 08/27/18 14:10 Blood Culture - Preliminary Blood - Peripheral Venous NO GROWTH OBTAINED AFTER 72 HOURS, INCUBATION TO CONTINUE FOR 2 DAYS. Physical Exam Awake/ confused S1 S2 RRR Anorexic Lungs decreased at bases Abd - soft, NT, Colostomy functioning Ext- B/L leg edema, left arm edema, penile edema PLAN continue present care abx dialysis per renal will follow Problem List - Problems (1) Intractable back pain Code(s): M54.9 - DORSALGIA, UNSPECIFIED (2) Metastatic colon cancer to liver Code(s): C18.9 - MALIGNANT NEOPLASM OF COLON, UNSPECIFIED; C78.7 - SECONDARY MALIG NEOPLASM OF LIVER AND INTRAHEPATIC BILE DUCT (3) Neuropathy Code(s): G62.9 - POLYNEUROPATHY, UNSPECIFIED (4) Sciatica of left side Code(s): M54.32 - SCIATICA, LEFT SIDE (5) Hypertension Code(s): I10 - ESSENTIAL (PRIMARY) HYPERTENSION Problem List - Problems (1) Neuropathy Code(s): G62.9 - POLYNEUROPATHY, UNSPECIFIED (2) Sciatica of left side Code(s): M54.32 - SCIATICA, LEFT SIDE (3) Adenocarcinoma Code(s): C80.1 - MALIGNANT (PRIMARY) NEOPLASM, UNSPECIFIED (4) Hypertension Code(s): I10 - ESSENTIAL (PRIMARY) HYPERTENSION (5) Old cerebrovascular accident (CVA) without late effect Code(s): Z86.73 - PRSNL HX OF TIA (TIA), AND CEREB INFRC W/O RESID DEFICITS Problem List - Problems (1) Neuropathy Code(s): G62.9 - POLYNEUROPATHY, UNSPECIFIED (2) Sciatica of left side Code(s): M54.32 - SCIATICA, LEFT SIDE (3) Adenocarcinoma Code(s): C80.1 - MALIGNANT (PRIMARY) NEOPLASM, UNSPECIFIED (4) Hypertension Code(s): I10 - ESSENTIAL (PRIMARY) HYPERTENSION (5) Old cerebrovascular accident (CVA) without late effect Code(s): Z86.73 - PRSNL HX OF TIA (TIA), AND CEREB INFRC W/O RESID DEFICITS
[2018-08-31] MEDS ORDERED: MORPHINE SULFATE 2 MG/ML VIAL IVPB PRN ×2 (12:37→20:47)
[2018-08-31] MEDS ORDERED: SODIUM CHLORIDE 250 ML IV PRN (20:11)
--- NOTE | 2018-08-31 20:21 | PN ---
Progress Note (short form) - Note Progress Note: Colon Ca on Chemo, Hypertension, CVA Severe back pain Hosp acquired ISMAEL Current Medications Acetaminophen (Tylenol -) 650 mg PO Q6H PRN PRN Reason: FEVER Last Admin: 08/30/18 22:01 Dose: 650 mg Carvedilol (Coreg -) 12.5 mg PO BID [facility] Last Admin: 08/31/18 09:20 Dose: 12.5 mg Docusate Sodium (Colace -) 100 mg PO TID [facility] Last Admin: 08/31/18 14:20 Dose: 100 mg Heparin Sodium (Porcine) (Heparin -) 5,000 unit SQ BID [facility] Last Admin: 08/31/18 09:21 Dose: 5,000 unit IV Flush (Vu-Cath Flush) 10 ml IVPUSH PRN PRN PRN Reason: protocol, patency maintenance Last Admin: 08/30/18 05:45 Dose: 10 ml IV Flush (Vu-Cath Flush) 10 ml IVPUSH PRN PRN PRN Reason: FLUSH Meropenem 500 mg/ Dextrose 100 mls @ 200 mls/hr IVPB BID [facility] Last Admin: 08/31/18 09:21 Dose: 200 mls/hr Metronidazole (Flagyl 500mg Premixed Ivpb -) 500 mg in 100 mls @ 100 mls/hr IVPB Q8H-IV [facility] Last Admin: 08/31/18 17:40 Dose: 100 mls/hr Sodium Chloride (Normal Saline -) 250 mls @ 3,000 mls/hr IV PRN PRN PRN Reason: Hypotension during Dialysis Stop: 08/30/18 20:10 Sodium Chloride (Normal Saline -) 250 mls @ 3,000 mls/hr IV PRN PRN PRN Reason: Hypotension during Dialysis Stop: 09/01/18 20:11 Midodrine (Proamatine -) 5 mg PO TID-MID [facility] Last Admin: 08/31/18 17:39 Dose: 5 mg Miscellaneous (Duragesic Patch Waste) 1 each TD PRN PRN PRN Reason: PAIN Morphine Sulfate (Morphine Sulfate) 2 mg IVPB Q6H PRN PRN Reason: PAIN LEVEL 7 - 10 Pantoprazole Sodium (Protonix -) 40 mg PO DAILY [facility] Last Admin: 08/31/18 09:22 Dose: 40 mg Polyethylene Glycol (Miralax (For Daily Use) -) 17 gm PO DAILY [facility] Last Admin: 08/31/18 09:21 Dose: 17 grams Sodium Bicarbonate (Sodium Bicarbonate -) 650 mg PO BID [facility] Last Admin: 08/31/18 09:22 Dose: 650 mg Last Vital Signs Temp Pulse Resp BP Pulse Ox 99.1 F 96 H 18 100/70 98 08/31/18 17:24 08/31/18 17:24 08/31/18 17:24 08/31/18 17:24 08/31/18 09:00 O/E alert somewhat confused Lungs clear Heart reg Abd soft Ext marked edema CBC, BMP 08/30/18 06:00 08/30/18 06:00 IMP- colon ca ESRD stable on dialysis Plan- HD tomorrow MWF
--- NOTE | 2018-08-31 20:42 | PN ---
Progress Note (short form) - Note Progress Note: PAtient seen and examined Left leg pain confused anasarca Last Vital Signs Temp Pulse Resp BP Pulse Ox 99.1 F 96 H 18 100/70 98 08/31/18 17:24 08/31/18 17:24 08/31/18 17:24 08/31/18 17:24 08/31/18 09:00 Cor: RSR, No murmurs, No gallops Lungs: Clear to P&A Abd: Soft, Normal bowel sounds, No organomegaly Ext:LLE edema scrotal edema Labs/meds reviewed A/P 48 y/o with metastatic rectal cancer BRAF mutated/KRAS wild type/ MSIstable, with liver/lung mets, s/p surgery, ON FOLFOX/avastin, recent oxaliplatin neuropathy and had been on 5-FU/leucovorin/avastin, recent scans on 08/07 showing progressive disease, comes in with left leg severe pain of 1 week duration. MRI T/L spine show no cord compression Recurrent 6 cm pelvic mass encroaching sciatic foramen,liver mets, lung mets satrted RT to pelvic mass . 01/07 treatments Pain medication prior to RT Acute renal failure- worsening renal function. started dialysis altered mental status -- ? pain meds ? infection discussed with --will stop fentanyl/add ms contin as needed morphine 3mg q4hrs. prn fevers--discussed with ID ? tumor fevers switch to meropenem and flagyl had discussed overall condition with patients and mother earlier in the week
[2018-08-31] MEDS: ACETAMINOPHEN 325 MG TABLET (FP) PO PRN (22:02)
[2018-08-31] MEDS: MORPHINE SULFATE 2 MG/ML VIAL IVPUSH PRN (22:04)
[2018-09-01] MEDS: MORPHINE SULFATE 2 MG/ML VIAL IVPUSH PRN ×4 (05:56→19:01)
[2018-09-01] MEDS: DOCUSATE SODIUM 100 MG CAPSULE (FP) PO SCH ×3 (05:56→23:08)
[2018-09-01 07:16] LABS: BASO % 0.5 % (0-2.0); EOS % 0.3 % (0-4.5); HEMATOCRIT 23.7 % (35.4-49); HEMOGLOBIN 7.8 GM/dL (11.7-16.9); LYMPH % 2.8 % (8-40); MCH 27.3 pg (25.7-33.7); MCHC 32.7 g/dl (32.0-35.9); MEAN CELL VOLUME 83.4 fl (80-96); MEAN PLT VOLUME 7.9 fl (7.5-11.1); MONO % 4.8 % (3.8-10.2); NEUT % 91.6 % (42.8-82.8); PLATELET COUNT 315 K/MM3 (134-434); RBC 2.84 M/mm3 (4.00-5.60); RDW 18.2 % (11.9-15.9); WHITE BLOOD COUNT 14.3 K/mm3 (4.0-10.0)
[2018-09-01 07:41] LABS: ALBUMIN 0.9 g/dl (3.4-5.0); ALK PHOS 350 U/L (45-117); ANION GAP 7 MMOL/L (8-16); BILIRUBIN,TOTAL 0.8 mg/dL (0.2-1); BLOOD UREA NITROGEN 79 mg/dL (7-18); CHLORIDE 101 mmol/L (98-107); CO2 26 mmol/L (21-32); CREATININE 3.4 mg/dL (0.55-1.3); GLUCOSE,RANDOM 84 mg/dL (74-106); POTASSIUM 4.6 mmol/L (3.5-5.1); SGOT/AST 54 U/L (15-37); SGPT/ALT 14 U/L (13-61); SODIUM 133 mmol/L (136-145); TOT PROT 3.8 g/dl (6.4-8.2)
[2018-09-01] MEDS: CARVEDILOL 12.5 MG TABLET (FP) PO SCH ×2 (09:15→23:08)
[2018-09-01] MEDS: SODIUM BICARBONATE 650 MG TABLET PO SCH ×2 (09:15→23:08)
[2018-09-01] MEDS: ACETAMINOPHEN 325 MG TABLET (FP) PO PRN ×2 (09:15→22:00)
[2018-09-01] MEDS: PANTOPRAZOLE 40 MG TABLET (FP) PO SCH (09:15)
[2018-09-01] MEDS: HEPARIN NA (PORCINE) 5,000 UNITS/ML 1ML VIAL SQ SCH ×2 (09:16→23:08)
[2018-09-01] MEDS: POLYETHYLENE GLYCOL 3350 119 GM BTL PO SCH (09:16)
[2018-09-01] MEDS: MEROPENEM 500 MG in DEXTROSE 5%-WATER 100 ML IVPB SCH ×2 (10:08→23:08)
[2018-09-01] MEDS: MIDODRINE HCL 5 MG TABLET PO SCH ×3 (10:09→18:50)
[2018-09-01 10:46] LABS: ACANTHOCYTES 0; ANISOCYTOSIS 0; HELMET CELLS 0; HOWELL-JOLLY BODIES 0; MACROCYTOSIS 0; OVALOCYTE 0; PLATELET ESTIMATE NORMAL; ROULEAU 0; SICKELED CELLS 0; TARGET CELLS 0; TEAR DROP CELLS 0; TOXIC GRANULATION 0
--- NOTE | 2018-09-01 11:28 | PN ---
Progress Note (short form) - Note Progress Note: Renal follow up for ISMAEL Pt seen and examined at the bedside reported having large loose BM last night had 2 prior HD Tx and tolerated it well no sob, cp, abd pain legs remain swollen Vital Signs Temperature 98.9 F 09/01/18 10:07 Pulse Rate 94 H 09/01/18 10:00 Respiratory Rate 20 09/01/18 10:00 Blood Pressure 129/60 09/01/18 10:00 O2 Sat by Pulse Oximetry (%) 96 09/01/18 09:00 Intake & Output 08/29/18 08/30/18 08/31/18 09/01/18 23:59 23:59 23:59 23:59 Intake Total 0087 655 1056 Output Total 500 500 500 300 Balance 880 -100 740 -300 NAD awake and alert neck supple, no JVD RRR CTA soft NT/ND CBC, BMP 09/01/18 06:50 09/01/18 06:50 Current Medications Acetaminophen (Tylenol -) 650 mg PO Q6H PRN PRN Reason: FEVER Last Admin: 09/01/18 09:15 Dose: 650 mg Carvedilol (Coreg -) 12.5 mg PO BID [facility] Last Admin: 09/01/18 09:15 Dose: 12.5 mg Docusate Sodium (Colace -) 100 mg PO TID [facility] Last Admin: 09/01/18 05:56 Dose: Not Given Heparin Sodium (Porcine) (Heparin -) 5,000 unit SQ BID [facility] Last Admin: 09/01/18 09:16 Dose: 5,000 unit IV Flush (Vu-Cath Flush) 10 ml IVPUSH PRN PRN PRN Reason: protocol, patency maintenance Last Admin: 08/30/18 05:45 Dose: 10 ml IV Flush (Vu-Cath Flush) 10 ml IVPUSH PRN PRN PRN Reason: FLUSH Meropenem 500 mg/ Dextrose 100 mls @ 200 mls/hr IVPB BID [facility] Last Admin: 09/01/18 10:08 Dose: 200 mls/hr Metronidazole (Flagyl 500mg Premixed Ivpb -) 500 mg in 100 mls @ 100 mls/hr IVPB Q8H-IV [facility] Last Admin: 09/01/18 09:16 Dose: 100 mls/hr Sodium Chloride (Normal Saline -) 250 mls @ 3,000 mls/hr IV PRN PRN PRN Reason: Hypotension during Dialysis Stop: 09/01/18 20:11 Midodrine (Proamatine -) 5 mg PO TID-MID [facility] Last Admin: 09/01/18 10:09 Dose: 5 mg Miscellaneous (Duragesic Patch Waste) 1 each TD PRN PRN PRN Reason: PAIN Morphine Sulfate (Morphine Sulfate) 3 mg IVPUSH Q4H PRN PRN Reason: PAIN LEVEL 7 - 10 Last Admin: 09/01/18 10:07 Dose: 3 mg Pantoprazole Sodium (Protonix -) 40 mg PO DAILY [facility] Last Admin: 09/01/18 09:15 Dose: 40 mg Polyethylene Glycol (Miralax (For Daily Use) -) 17 gm PO DAILY [facility] Last Admin: 09/01/18 09:16 Dose: Not Given Sodium Bicarbonate (Sodium Bicarbonate -) 650 mg PO BID [facility] Last Admin: 09/01/18 09:15 Dose: 650 mg 48 year old gentleman with hx of Colon Ca on Chemo, Hypertension, CVA who presented with severe back pain and noted to develop ISMAEL during the hospital course. #Progressive worsening of renal function with decreasing urine output(urine Na very low indicating preserved tubular function, Urine Eos pending, no hydronephrosis seen on US) requiring HD #Anion gap metabolic acidosis plan for dialysis today and tomorrow with aggressive UF as tolerated, then will trend off dialysis and monitor [place] renal function d/c sodium bicarbonate continue Abx as per ID Trend renal function and electrolytes Sami Pulido DO
[2018-09-01] MEDS: PORTA CATH FLUSH 10 ML IVPUSH PRN (12:05)
[2018-09-01] MEDS ORDERED: SODIUM CHLORIDE 250 ML IV PRN ×2 (12:10→17:45)
--- NOTE | 2018-09-01 12:47 | PN ---
Progress Note (short form) - Note Progress Note: Radiation Oncology Pain controlled today, tolerated RT today. MRI pelvis reviewed: presacral mass involving sacral foramina and encasing nerve roots S1-4, with possible muscle invasion. On HD for ISMAEL. Completed 5/10 fractions of RT to date. Continue as tolerated. 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 Pain management.
--- NOTE | 2018-09-01 13:00 | PN ---
Progress Note (short form) - Note Progress Note: pt seen/ examined. more alert/ awake today comfortable pain much better Vital Signs Temp 98.9 F 09/01/18 10:07 Pulse 94 H 09/01/18 10:00 Resp 20 09/01/18 10:00 BP 129/60 09/01/18 10:00 Pulse Ox 96 09/01/18 09:00 Intake & Output 08/31/18 09/01/18 09/01/18 23:59 11:59 23:59 Intake Total 1040 Output Total 400 300 Balance 640 -300 Intake: IVPB 150 Oral 890 Output: Urine 400 300 Mancia 400 300 Other: Voiding Method Indwelling Catheter Indwelling Catheter Bowel Movement Yes Active Medications Acetaminophen (Tylenol -) 650 mg PO Q6H PRN PRN Reason: FEVER Last Admin: 09/01/18 09:15 Dose: 650 mg Carvedilol (Coreg -) 12.5 mg PO BID [facility] Last Admin: 09/01/18 09:15 Dose: 12.5 mg Docusate Sodium (Colace -) 100 mg PO TID [facility] Last Admin: 09/01/18 05:56 Dose: Not Given Heparin Sodium (Porcine) (Heparin -) 5,000 unit SQ BID [facility] Last Admin: 09/01/18 09:16 Dose: 5,000 unit IV Flush (Vu-Cath Flush) 10 ml IVPUSH PRN PRN PRN Reason: protocol, patency maintenance Last Admin: 08/30/18 05:45 Dose: 10 ml IV Flush (Vu-Cath Flush) 10 ml IVPUSH PRN PRN PRN Reason: FLUSH Meropenem 500 mg/ Dextrose 100 mls @ 200 mls/hr IVPB BID [facility] Last Admin: 09/01/18 10:08 Dose: 200 mls/hr Metronidazole (Flagyl 500mg Premixed Ivpb -) 500 mg in 100 mls @ 100 mls/hr IVPB Q8H-IV [facility] Last Admin: 09/01/18 09:16 Dose: 100 mls/hr Sodium Chloride (Normal Saline -) 250 mls @ 3,000 mls/hr IV PRN PRN PRN Reason: Hypotension during Dialysis Stop: 09/02/18 12:10 Midodrine (Proamatine -) 5 mg PO TID-MID [facility] Last Admin: 09/01/18 10:09 Dose: 5 mg Miscellaneous (Duragesic Patch Waste) 1 each TD PRN PRN PRN Reason: PAIN Morphine Sulfate (Morphine Sulfate) 3 mg IVPUSH Q4H PRN PRN Reason: PAIN LEVEL 7 - 10 Last Admin: 09/01/18 10:07 Dose: 3 mg Pantoprazole Sodium (Protonix -) 40 mg PO DAILY [facility] Last Admin: 09/01/18 09:15 Dose: 40 mg Polyethylene Glycol (Miralax (For Daily Use) -) 17 gm PO DAILY [facility] Last Admin: 09/01/18 09:16 Dose: Not Given Sodium Bicarbonate (Sodium Bicarbonate -) 650 mg PO BID [facility] Last Admin: 09/01/18 09:15 Dose: 650 mg CBC, BMP 09/01/18 06:50 09/01/18 06:50 Microbiology 08/27/18 13:55 Blood Culture - Preliminary Blood - Vu Cath NO GROWTH OBTAINED AFTER 96 HOURS, INCUBATION TO CONTINUE FOR 1 DAYS. 08/27/18 14:10 Blood Culture - Preliminary Blood - Peripheral Venous NO GROWTH OBTAINED AFTER 96 HOURS, INCUBATION TO CONTINUE FOR 1 DAYS. 08/18/18 21:00 Blood Culture - Preliminary Blood - Vu Cath Anaerobic Gram Neg Bacilli 08/18/18 21:00 Blood Culture - Preliminary Blood - Vu Cath Staphylococcus Saccharolyticus Anaerobic Gram Neg Bacilli Physical Exam Awake/ comfortable S1 S2 RRR Lungs decreased at bases Abd - soft, NT, Colostomy functioning Ext- B/L leg edema, left arm edema, penile edema PLAN better continue present care abx dialysis per renal RT PT will follow Problem List - Problems (1) Neuropathy Code(s): G62.9 - POLYNEUROPATHY, UNSPECIFIED (2) Sciatica of left side Code(s): M54.32 - SCIATICA, LEFT SIDE (3) Adenocarcinoma Code(s): C80.1 - MALIGNANT (PRIMARY) NEOPLASM, UNSPECIFIED (4) Hypertension Code(s): I10 - ESSENTIAL (PRIMARY) HYPERTENSION (5) Old cerebrovascular accident (CVA) without late effect Code(s): Z86.73 - PRSNL HX OF TIA (TIA), AND CEREB INFRC W/O RESID DEFICITS
--- NOTE | 2018-09-01 13:43 | PN ---
Progress Note (short form) - Note Progress Note: PROGRESS NOTE FOR HEMATOLOGY/ONCOLOGY Patient seen and examined by me at bedside. Patient more awake but remains confused Started on emergency dialysis over the weekend. Will have a session today Completed 02/06 RT Otherwise, denies any fever, chills, nausea, vomiting, abdominal pain, chest pain, palpitations, shortness of breath Vital Signs Temperature 98.9 F 09/01/18 10:07 Pulse Rate 94 H 09/01/18 10:00 Respiratory Rate 20 09/01/18 10:00 Blood Pressure 129/60 09/01/18 10:00 O2 Sat by Pulse Oximetry (%) 96 09/01/18 09:00 PHYSICAL EXAMINATION GENERAL: Awake, slightly confused, anasarca, no acute distress EYES: conjunctiva clear. ENT: Moist mucous membranes LUNGS: Diminished breath sounds bilaterally with no crackles or wheezes HEART: RRR, normal S1 and S2 ABDOMEN: Soft, nontender, not distended, normoactive bowel sounds. Colostomy bag in place EXTREMITIES: 1+ pitting edema bilaterally with erythema and warmth on lateral aspect of left leg. Laboratory Tests 09/01/18 06:50 09/01/18 06:50 09/01/18 06:50 Calcium 7.0 L Total Bilirubin 0.8 AST 54 H Alkaline Phosphatase 350 H Total Protein 3.8 L Albumin 0.9 L ASSESSMENT AND PLAN: Patient is a 48 year old male with metastatic rectal cancer with mets to the liver and lungs on 5-FU/Leucovorin who presented with severe left leg pain for > 1 weeks. Patient found to have sepsis and admitted for further monitoring and management. Problem List: Metastatic Rectal Cancer with perirectal mass extending through sciatic notch and into piriformis muscle. HTN ISMAEL on CKD Anemia of chronic disease Tumor fevers PLAN: -Pain adequately controlled with morphine and ms contin PRN -510 RT treatments completed -Continue Dialysis, as per Nephrology and monitor CMP -Patient had fevers over the weekend, likely tumor fevers and patient was switched to meropenem and flagyl, as per ID -Continue to monitor
[2018-09-01 15:37] LABS: HEMATOCRIT 24.4 % (35.4-49); HEMOGLOBIN 8.4 GM/dL (11.7-16.9); MCH 28.2 pg (25.7-33.7); MCHC 34.5 g/dl (32.0-35.9); MEAN CELL VOLUME 81.6 fl (80-96); MEAN PLT VOLUME 8.2 fl (7.5-11.1); PLATELET COUNT 385 K/MM3 (134-434); RBC 2.99 M/mm3 (4.00-5.60); RDW 18.5 % (11.9-15.9); WHITE BLOOD COUNT 13.4 K/mm3 (4.0-10.0)
[2018-09-01 17:14] LABS: ATYPICAL pANCA <1:20 titer (Neg:<1:20); C-ANCA <1:20 titer (Neg:<1:20); P-ANCA <1:20 titer (Neg:<1:20)
--- NOTE | 2018-09-01 17:56 | PN ---
Teaching Attending Note Name of Resident: Mary Mendoza ATTENDING PHYSICIAN STATEMENT I saw and evaluated the patient. I reviewed the resident's note and discussed the case with the resident. I agree with the resident's findings and plan as documented. SUBJECTIVE: OBJECTIVE: ASSESSMENT AND PLAN: 48 y/o with metastatic rectal cancer BRAF mutated/KRAS wild type/ MSIstable, with liver/lung mets, s/p surgery, ON FOLFOX/avastin, recent oxaliplatin neuropathy and had been on 5-FU/leucovorin/avastin, recent scans on 08/07 showing progressive disease, comes in with left leg severe pain of 1 week duration. MRI T/L spine show no cord compression Recurrent 6 cm pelvic mass encroaching sciatic foramen,liver mets, lung mets started RT to pelvic mass . 02/06 treatments Pain medication prior to RT Acute renal failure- worsening renal function. started dialysis altered mental status -- ? pain meds ? infection morphine 3mg q4hrs. prn fevers--discussed with ID ? tumor fevers switched to meropenem and flagyl had discussed overall condition with patients and mother earlier in the week
[2018-09-01] MEDS ORDERED: PT OWN MED DRAWER 7, Y5N ONE (22:12)
[2018-09-02] MEDS: DOCUSATE SODIUM 100 MG CAPSULE (FP) PO SCH ×3 (05:53→23:11)
[2018-09-02] MEDS: PORTA CATH FLUSH 10 ML IVPUSH PRN (06:16)
[2018-09-02 07:25] LABS: HEMATOCRIT 23.7 % (35.4-49); HEMOGLOBIN 7.7 GM/dL (11.7-16.9); MCH 26.9 pg (25.7-33.7); MCHC 32.6 g/dl (32.0-35.9); MEAN CELL VOLUME 82.7 fl (80-96); PLATELET COUNT 321 K/MM3 (134-434); RBC 2.87 M/mm3 (4.00-5.60); RDW 19.1 % (11.9-15.9); WHITE BLOOD COUNT 14.1 K/mm3 (4.0-10.0)
[2018-09-02 07:50] LABS: ALK PHOS 362 U/L (45-117); ANION GAP 10 MMOL/L (8-16); BILIRUBIN,TOTAL 0.8 mg/dL (0.2-1); BLOOD UREA NITROGEN 62 mg/dL (7-18); CHLORIDE 102 mmol/L (98-107); CO2 27 mmol/L (21-32); CREATININE 2.9 mg/dL (0.55-1.3); GLUCOSE,RANDOM 84 mg/dL (74-106); PHOSPHOROUS 4.8 mg/dL (2.5-4.9); POTASSIUM 4.6 mmol/L (3.5-5.1); SGOT/AST 46 U/L (15-37); SGPT/ALT 13 U/L (13-61); SODIUM 139 mmol/L (136-145)
[2018-09-02] MEDS: ACETAMINOPHEN 325 MG TABLET (FP) PO PRN ×2 (08:40→23:08)
[2018-09-02] MEDS: PANTOPRAZOLE 40 MG TABLET (FP) PO SCH (09:21)
[2018-09-02] MEDS: CARVEDILOL 12.5 MG TABLET (FP) PO SCH ×2 (09:21→23:11)
[2018-09-02] MEDS: HEPARIN NA (PORCINE) 5,000 UNITS/ML 1ML VIAL SQ SCH ×2 (09:21→23:11)
[2018-09-02] MEDS: SODIUM BICARBONATE 650 MG TABLET PO SCH (09:21)
[2018-09-02] MEDS: MIDODRINE HCL 5 MG TABLET PO SCH ×3 (09:25→17:29)
[2018-09-02] MEDS: POLYETHYLENE GLYCOL 3350 119 GM BTL PO SCH (09:25)
[2018-09-02] MEDS: MEROPENEM 500 MG in DEXTROSE 5%-WATER 100 ML IVPB SCH ×2 (09:49→23:11)
[2018-09-02] MEDS: MORPHINE SULFATE 2 MG/ML VIAL IVPUSH PRN (09:50)
--- NOTE | 2018-09-02 12:17 | PN ---
Progress Note (short form) - Note Progress Note: Renal follow up for ISMAEL Pt seen and examined during dialysis Awake and alert reports feeling cold but no sob, cp, abd pain making urine via gilmore Vital Signs Temperature 98.6 F 09/02/18 10:00 Pulse Rate 86 09/02/18 10:00 Respiratory Rate 20 09/02/18 10:00 Blood Pressure 119/79 09/02/18 10:00 O2 Sat by Pulse Oximetry (%) 96 09/01/18 21:00 Intake & Output 08/30/18 08/31/18 09/01/18 09/02/18 23:59 23:59 23:59 23:59 Intake Total 400 1240 150 100 Output Total 500 500 550 150 Balance -100 740 -400 -50 NAD awake and alert left femoral Hd catheter +++ edema in LE CBC, BMP 09/02/18 06:15 09/02/18 06:15 Current Medications Acetaminophen (Tylenol -) 650 mg PO Q6H PRN PRN Reason: FEVER Last Admin: 09/02/18 08:40 Dose: 650 mg Carvedilol (Coreg -) 12.5 mg PO BID [facility] Last Admin: 09/02/18 09:21 Dose: 12.5 mg Docusate Sodium (Colace -) 100 mg PO TID [facility] Last Admin: 09/02/18 05:53 Dose: Not Given Heparin Sodium (Porcine) (Heparin -) 5,000 unit SQ BID [facility] Last Admin: 09/02/18 09:21 Dose: 5,000 unit IV Flush (Vu-Cath Flush) 10 ml IVPUSH PRN PRN PRN Reason: protocol, patency maintenance Last Admin: 09/02/18 06:16 Dose: 10 ml IV Flush (Vu-Cath Flush) 10 ml IVPUSH PRN PRN PRN Reason: FLUSH Meropenem 500 mg/ Dextrose 100 mls @ 200 mls/hr IVPB BID [facility] [place] Last Admin: 09/02/18 09:49 Dose: 200 mls/hr Metronidazole (Flagyl 500mg Premixed Ivpb -) 500 mg in 100 mls @ 100 mls/hr IVPB Q8H-IV [facility] Last Admin: 09/02/18 09:00 Dose: 100 mls/hr Sodium Chloride (Normal Saline -) 250 mls @ 3,000 mls/hr IV PRN PRN PRN Reason: Hypotension during Dialysis Stop: 09/02/18 12:10 Sodium Chloride (Normal Saline -) 250 mls @ 3,000 mls/hr IV PRN PRN PRN Reason: Hypotension during Dialysis Stop: 09/02/18 17:45 Midodrine (Proamatine -) 5 mg PO TID-MID [facility] [place] Last Admin: 09/02/18 09:25 Dose: 5 mg Miscellaneous (Duragesic Patch Waste) 1 each TD PRN PRN PRN Reason: PAIN Morphine Sulfate (Morphine Sulfate) 3 mg IVPUSH Q4H PRN PRN Reason: PAIN LEVEL 7 - 10 Last Admin: 09/02/18 09:50 Dose: 3 mg Pantoprazole Sodium (Protonix -) 40 mg PO DAILY [facility] Last Admin: 09/02/18 09:21 Dose: 40 mg Polyethylene Glycol (Miralax (For Daily Use) -) 17 gm PO DAILY [facility] Last Admin: 09/02/18 09:25 Dose: Not Given Sodium Bicarbonate (Sodium Bicarbonate -) 650 mg PO BID [facility] Last Admin: 09/02/18 09:21 Dose: 650 mg 48 year old gentleman with hx of Colon Ca on Chemo, Hypertension, CVA who presented with severe back pain and noted to develop ISMAEL during the hospital course. #Progressive worsening of renal function with decreasing urine output(urine Na very low indicating preserved tubular function, Urine Eos pending, no hydronephrosis seen on US) requiring HD #Anion gap metabolic acidosis tolerating dialysis well today will request that HD catheter be removed and will trend renal function off dialysis for next 2-3 days continue gilmore for strict I and O and management of retention continue Abx as per ID serologic work up for ISMAEL negative continue supportive care overall prognosis is guarded Oncology following Sami Pulido DO
--- NOTE | 2018-09-02 14:18 | PN ---
Progress Note (short form) - Note Progress Note: Getting dialysed better-- pain is much less\ able to move more he went for radiation also Vital Signs - 24 hr Vital Signs - 24 hr 09/01/18 09/01/18 09/01/18 14:35 14:40 15:10 Temperature 98.8 F Temperature [ Prior to transport] Temperature [ Return from therapy] Pulse Rate 91 H 91 H 90 Pulse Rate [ Prior to transport] Pulse Rate [ Return from therapy] Respiratory 18 18 18 Rate Respiratory Rate [Prior to transport] Respiratory Rate [Return from therapy] Blood Pressure 117/80 121/84 105/87 Blood Pressure [Prior to transport] Blood Pressure [Return from therapy] O2 Sat by Pulse Oximetry (%) 09/01/18 09/01/18 09/01/18 15:19 15:40 16:10 Temperature 98.4 F Temperature [ Prior to transport] Temperature [ Return from therapy] Pulse Rate 91 H 90 93 H Pulse Rate [ Prior to transport] Pulse Rate [ Return from therapy] Respiratory 18 18 18 Rate Respiratory Rate [Prior to transport] Respiratory Rate [Return from therapy] Blood Pressure 108/71 117/80 119/82 Blood Pressure [Prior to transport] Blood Pressure [Return from therapy] O2 Sat by Pulse Oximetry (%) 09/01/18 09/01/18 09/01/18 16:40 17:10 17:40 Temperature Temperature [ Prior to transport] Temperature [ Return from therapy] Pulse Rate 93 H 95 H 80 Pulse Rate [ Prior to transport] Pulse Rate [ Return from therapy] Respiratory 18 18 18 Rate Respiratory Rate [Prior to transport] Respiratory Rate [Return from therapy] Blood Pressure 118/82 118/81 120/79 Blood Pressure [Prior to transport] Blood Pressure [Return from therapy] O2 Sat by Pulse Oximetry (%) 09/01/18 09/01/18 09/01/18 18:10 18:40 18:45 Temperature Temperature [ Prior to transport] Temperature [ Return from therapy] Pulse Rate 91 H 79 82 Pulse Rate [ Prior to transport] Pulse Rate [ Return from therapy] Respiratory 18 18 18 Rate Respiratory Rate [Prior to transport] Respiratory Rate [Return from therapy] Blood Pressure 106/85 116/86 112/83 Blood Pressure [Prior to transport] Blood Pressure [Return from therapy] O2 Sat by Pulse Oximetry (%) 09/01/18 09/01/18 09/02/18 21:00 22:00 01:34 Temperature 99.9 F H 99.1 F Temperature [ Prior to transport] Temperature [ Return from therapy] Pulse Rate 95 H Pulse Rate [ Prior to transport] Pulse Rate [ Return from therapy] Respiratory 18 18 Rate Respiratory Rate [Prior to transport] Respiratory Rate [Return from therapy] Blood Pressure 124/80 Blood Pressure [Prior to transport] Blood Pressure [Return from therapy] O2 Sat by Pulse 96 Oximetry (%) 09/02/18 09/02/18 09/02/18 05:59 08:46 09:00 Temperature 98.9 F 99 F Temperature [ Prior to transport] Temperature [ Return from therapy] Pulse Rate 84 87 Pulse Rate [ Prior to transport] Pulse Rate [ Return from therapy] Respiratory 18 18 18 Rate Respiratory Rate [Prior to transport] Respiratory Rate [Return from therapy] Blood Pressure 117/83 123/69 Blood Pressure [Prior to transport] Blood Pressure [Return from therapy] O2 Sat by Pulse 97 Oximetry (%) 09/02/18 09/02/18 09/02/18 10:00 12:45 12:50 Temperature 99.2 F Temperature [ 98.6 F Prior to transport] Temperature [ 98.4 F Return from therapy] Pulse Rate 87 88 Pulse Rate [ 86 Prior to transport] Pulse Rate [ 92 H Return from therapy] Respiratory 18 18 Rate Respiratory 20 Rate [Prior to transport] Respiratory 20 Rate [Return from therapy] Blood Pressure 120/82 126/89 Blood Pressure 119/79 [Prior to transport] Blood Pressure 124/83 [Return from therapy] O2 Sat by Pulse Oximetry (%) 09/02/18 09/02/18 13:20 13:50 Temperature Temperature [ Prior to transport] Temperature [ Return from therapy] Pulse Rate 89 96 H Pulse Rate [ Prior to transport] Pulse Rate [ Return from therapy] Respiratory 18 18 Rate Respiratory Rate [Prior to transport] Respiratory Rate [Return from therapy] Blood Pressure 130/79 119/81 Blood Pressure [Prior to transport] Blood Pressure [Return from therapy] O2 Sat by Pulse Oximetry (%) Current Medications Generic Name Dose Route Start Last Admin Trade Name Freq PRN Reason Stop Dose Admin Acetaminophen 650 mg 08/23/18 14:35 09/02/18 08:40 Tylenol - PO 650 mg Q6H PRN Administration FEVER Carvedilol 12.5 mg 08/16/18 22:00 09/02/18 09:21 Coreg - PO 12.5 mg BID AJ Administration Docusate Sodium 100 mg 08/16/18 22:00 09/02/18 05:53 Colace - PO Not Given TID AJ Heparin Sodium (Porcine) 5,000 unit 08/27/18 22:00 09/02/18 09:21 Heparin - SQ 5,000 unit BID AJ Administration IV Flush 10 ml 08/18/18 22:39 09/02/18 06:16 Vu-Cath Flush IVPUSH 10 ml PRN PRN Administration protocol, patency maintenance IV Flush 10 ml 08/22/18 13:46 Vu-Cath Flush IVPUSH PRN PRN FLUSH Meropenem 500 mg/ Dextrose 100 mls @ 200 mls/hr 08/27/18 17:15 09/02/18 09:49 IVPB 200 mls/hr BID AJ Administration Metronidazole 500 mg in 100 mls @ 100 mls/hr 08/27/18 18:00 09/02/18 09:00 Flagyl 500mg Premixed Ivpb - IVPB 100 mls/hr Q8H-IV AJ Administration Sodium Chloride 250 mls @ 3,000 mls/hr 09/01/18 12:10 Normal Saline - IV 09/02/18 12:10 PRN PRN Hypotension during Dialysis Sodium Chloride 250 mls @ 3,000 mls/hr 09/01/18 17:45 Normal Saline - IV 09/02/18 17:45 PRN PRN Hypotension during Dialysis Midodrine 5 mg 08/29/18 14:00 09/02/18 09:25 Proamatine - PO 5 mg TID-MID AJ Administration Miscellaneous 1 each 08/26/18 18:51 Duragesic Patch Waste TD PRN PRN PAIN Morphine Sulfate 3 mg 08/31/18 20:54 09/02/18 09:50 Morphine Sulfate IVPUSH 3 mg Q4H PRN Administration PAIN LEVEL 7 - 10 Pantoprazole Sodium 40 mg 08/17/18 10:00 09/02/18 09:21 Protonix - PO 40 mg DAILY AJ Administration Polyethylene Glycol 17 gm 08/19/18 10:00 09/02/18 09:25 Miralax (For Daily Use) - PO Not Given DAILY AJ Laboratory Results - last 24 hr 08/27/18 08/27/18 09/01/18 09:12 14:10 14:50 WBC RBC Hgb Hct MCV MCH MCHC RDW Plt Count MPV Sodium Potassium Chloride Carbon Dioxide Anion Gap BUN Creatinine Creat Clearance w eGFR Random Glucose Calcium Phosphorus Total Bilirubin AST ALT Alkaline Phosphatase Total Protein Total Protein (PEP) 4.2 L Albumin Albumin (PEP) 1.2 L Globulin 3.0 Albumin/Globulin Ratio 0.4 L Beta Globulins 0.8 PAOLA M-Mao Not observed c-ANCA <1:20 Proteinase 3 (PR3) <3.5 p-ANCA <1:20 Atypical p-ANCA <1:20 Myeloperoxidase Ab <9.0 Blood Type O POSITIVE O POSITIVE Antibody Screen Negative Negative Crossmatch See Detail 09/01/18 09/01/18 09/02/18 15:00 15:00 06:15 WBC 13.4 H 14.1 H RBC 2.99 L 2.87 L Hgb 8.4 L 7.7 L Hct 24.4 L 23.7 L MCV 81.6 82.7 MCH 28.2 26.9 MCHC 34.5 32.6 RDW 18.5 H 19.1 H Plt Count 385 D 321 MPV 8.2 8.0 Sodium Potassium Chloride Carbon Dioxide Anion Gap BUN Creatinine Creat Clearance w eGFR Random Glucose Calcium Phosphorus 5.1 H Total Bilirubin AST ALT Alkaline Phosphatase Total Protein Total Protein (PEP) Albumin Albumin (PEP) Globulin Albumin/Globulin Ratio Beta Globulins PAOLA M-Mao c-ANCA Proteinase 3 (PR3) p-ANCA Atypical p-ANCA Myeloperoxidase Ab Blood Type Antibody Screen Crossmatch 09/02/18 06:15 WBC RBC Hgb Hct MCV MCH MCHC RDW Plt Count MPV Sodium 139 Potassium 4.6 Chloride 102 Carbon Dioxide 27 Anion Gap 10 BUN 62 H Creatinine 2.9 H Creat Clearance w eGFR 23.24 Random Glucose 84 Calcium 7.0 L Phosphorus 4.8 Total Bilirubin 0.8 AST 46 H ALT 13 Alkaline Phosphatase 362 H Total Protein 4.0 L Total Protein (PEP) Albumin 1.0 L Albumin (PEP) Globulin Albumin/Globulin Ratio Beta Globulins PAOLA M-Mao c-ANCA Proteinase 3 (PR3) p-ANCA Atypical p-ANCA Myeloperoxidase Ab Blood Type Antibody Screen Crossmatch S1 S2 RRR Anorexic Lungs decreased Abd - soft, NT, Colostomy functioning Ext- B/L leg edema, left arm edema, penile edema decreased- able to move PLAN continue with HD per renal pain control physical therapy transfuse PRBC as needed Problem List - Problems (1) Intractable back pain Code(s): M54.9 - DORSALGIA, UNSPECIFIED (2) Metastatic colon cancer to liver Code(s): C18.9 - MALIGNANT NEOPLASM OF COLON, UNSPECIFIED; C78.7 - SECONDARY MALIG NEOPLASM OF LIVER AND INTRAHEPATIC BILE DUCT (3) Neuropathy Code(s): G62.9 - POLYNEUROPATHY, UNSPECIFIED (4) Sciatica of left side Code(s): M54.32 - SCIATICA, LEFT SIDE (5) Hypertension Code(s): I10 - ESSENTIAL (PRIMARY) HYPERTENSION
--- NOTE | 2018-09-02 15:26 | PN ---
Progress Note (short form) - Note Progress Note: Patient seen in dialysis. Discussed with Dr. Pulido Pain 6- although currently seems comfortable . Received RT 03/09 . On IV morphine for pain. Last Vital Signs Temp Pulse Resp BP Pulse Ox 99.2 F 97 H 18 120/78 97 09/02/18 12:45 09/02/18 14:50 09/02/18 14:50 09/02/18 14:50 09/02/18 09:00 HEENT: EZEQUIEL, EOM Intact Oropharynx: No thrush, No mucositis Cor: RSR, No murmurs, No gallops Lungs: Clear to P&A,poor inspiratory effort Abd: Soft, Normal bowel sounds, No organomegaly, functioning colostomy Ext: edema LE Skin: No rashes, Integument intact CBC, BMP 09/02/18 06:15 09/02/18 06:15 Current Medications Generic Name Dose Route Start Last Admin Trade Name Freq PRN Reason Stop Dose Admin Acetaminophen 650 mg 08/23/18 14:35 09/02/18 08:40 Tylenol - PO 650 mg Q6H PRN Administration FEVER Carvedilol 12.5 mg 08/16/18 22:00 09/02/18 09:21 Coreg - PO 12.5 mg BID AJ Administration Docusate Sodium 100 mg 08/16/18 22:00 09/02/18 05:53 Colace - PO Not Given TID AJ Heparin Sodium (Porcine) 5,000 unit 08/27/18 22:00 09/02/18 09:21 Heparin - SQ 5,000 unit BID AJ Administration IV Flush 10 ml 08/18/18 22:39 09/02/18 06:16 Vu-Cath Flush IVPUSH 10 ml PRN PRN Administration protocol, patency maintenance IV Flush 10 ml 08/22/18 13:46 Vu-Cath Flush IVPUSH PRN PRN FLUSH Meropenem 500 mg/ Dextrose 100 mls @ 200 mls/hr 08/27/18 17:15 09/02/18 09:49 IVPB 200 mls/hr BID AJ Administration Metronidazole 500 mg in 100 mls @ 100 mls/hr 08/27/18 18:00 09/02/18 09:00 Flagyl 500mg Premixed Ivpb - IVPB 100 mls/hr Q8H-IV AJ Administration Sodium Chloride 250 mls @ 3,000 mls/hr 09/01/18 12:10 Normal Saline - IV 09/02/18 12:10 PRN PRN Hypotension during Dialysis Sodium Chloride 250 mls @ 3,000 mls/hr 09/01/18 17:45 Normal Saline - IV 09/02/18 17:45 PRN PRN Hypotension during Dialysis Midodrine 5 mg 08/29/18 14:00 09/02/18 09:25 Proamatine - PO 5 mg TID-MID AJ Administration Miscellaneous 1 each 08/26/18 18:51 Duragesic Patch Waste TD PRN PRN PAIN Morphine Sulfate 3 mg 08/31/18 20:54 09/02/18 09:50 Morphine Sulfate IVPUSH 3 mg Q4H PRN Administration PAIN LEVEL 7 - 10 Pantoprazole Sodium 40 mg 08/17/18 10:00 09/02/18 09:21 Protonix - PO 40 mg DAILY AJ Administration Polyethylene Glycol 17 gm 08/19/18 10:00 09/02/18 09:25 Miralax (For Daily Use) - PO Not Given DAILY AJ Impression Colon ca Liver , lung mets Sacral Mass RT Pain management ISMAEL HD Anemia Plan Continue short course of HD Continue RT Monitor CBC, chems. May need transfusion therapy
[2018-09-03] MEDS: DOCUSATE SODIUM 100 MG CAPSULE (FP) PO SCH ×3 (05:56→23:11)
[2018-09-03] MEDS: MORPHINE SULFATE 2 MG/ML VIAL IVPUSH PRN ×3 (05:57→14:28)
[2018-09-03] MEDS: HEPARIN NA (PORCINE) 5,000 UNITS/ML 1ML VIAL SQ SCH (09:36)
[2018-09-03] MEDS: MEROPENEM 500 MG in DEXTROSE 5%-WATER 100 ML IVPB SCH (09:36)
[2018-09-03] MEDS: CARVEDILOL 12.5 MG TABLET (FP) PO SCH ×2 (09:36→23:12)
[2018-09-03] MEDS: PANTOPRAZOLE 40 MG TABLET (FP) PO SCH (09:36)
[2018-09-03] MEDS: POLYETHYLENE GLYCOL 3350 119 GM BTL PO SCH (09:37)
[2018-09-03] MEDS: MIDODRINE HCL 5 MG TABLET PO SCH ×3 (09:37→17:32)
--- NOTE | 2018-09-03 09:50 | PN ---
Progress Note (short form) - Note Progress Note: 48yo M s/p Left femoral shiley catheter placement. Renal team is requesting that the catheter to be removed as pt no longer requires dialysis right now. Catheter was removed at bedside. Bleeding was minimal, clean dressing was placed. Pt tolerated the procedure well.
[2018-09-03 10:32] LABS: HEMATOCRIT 22.8 % (35.4-49); HEMOGLOBIN 7.7 GM/dL (11.7-16.9); MCH 28.1 pg (25.7-33.7); MCHC 33.7 g/dl (32.0-35.9); MEAN CELL VOLUME 83.3 fl (80-96); MEAN PLT VOLUME 8.2 fl (7.5-11.1); PLATELET COUNT 322 K/MM3 (134-434); RBC 2.74 M/mm3 (4.00-5.60); RDW 19.1 % (11.9-15.9); WHITE BLOOD COUNT 12.9 K/mm3 (4.0-10.0)
--- NOTE | 2018-09-03 11:02 | PN ---
Progress Note (short form) - Note Progress Note: Renal follow up for ISMAEL Pt seen and examined at the bedside s/p dialysis yesterday and had dialysis catheter removed this am no acute complaints no sob, cp, abd pain, N/V/D Vital Signs Temperature 98.9 F 09/03/18 10:00 Pulse Rate 91 H 09/03/18 10:00 Respiratory Rate 20 09/03/18 10:00 Blood Pressure 125/78 09/03/18 10:00 O2 Sat by Pulse Oximetry (%) 99 09/03/18 09:00 Intake & Output 08/31/18 09/01/18 09/02/18 09/03/18 23:59 23:59 23:59 23:59 Intake Total 1240 150 400 350 Output Total 500 550 450 150 Balance 740 -400 -50 200 NAD awake and alert ++ edema in LE g[place] in place CBC, BMP 09/03/18 06:00 09/02/18 06:15 Current Medications Acetaminophen (Tylenol -) 650 mg PO Q6H PRN PRN Reason: FEVER Last Admin: 09/02/18 23:08 Dose: 650 mg Carvedilol (Coreg -) 12.5 mg PO BID [facility] Last Admin: 09/03/18 09:36 Dose: 12.5 mg Docusate Sodium (Colace -) 100 mg PO TID [facility] Last Admin: 09/03/18 05:56 Dose: Not Given Heparin Sodium (Porcine) (Heparin -) 5,000 unit SQ BID [facility] Last Admin: 09/03/18 09:36 Dose: 5,000 unit IV Flush (Vu-Cath Flush) 10 ml IVPUSH PRN PRN PRN Reason: protocol, patency maintenance Last Admin: 09/02/18 06:16 Dose: 10 ml IV Flush (Vu-Cath Flush) 10 ml IVPUSH PRN PRN PRN Reason: FLUSH Last Admin: 09/02/18 18:50 Dose: 10 ml Meropenem 500 mg/ Dextrose 100 mls @ 200 mls/hr IVPB BID [facility] Last Admin: 09/03/18 09:36 Dose: 200 mls/hr Metronidazole (Flagyl 500mg Premixed Ivpb -) 500 mg in 100 mls @ 100 mls/hr IVPB Q8H-IV AJ Last Admin: 09/03/18 10:20 Dose: 100 mls/hr Midodrine (Proamatine -) 5 mg PO TID-MID [facility] Last Admin: 09/03/18 09:37 Dose: 5 mg Miscellaneous (Duragesic Patch Waste) 1 each TD PRN PRN PRN Reason: PAIN Morphine Sulfate (Morphine Sulfate) 3 mg IVPUSH Q4H PRN PRN Reason: PAIN LEVEL 7 - 10 Last Admin: 09/03/18 10:24 Dose: 3 mg Pantoprazole Sodium (Protonix -) 40 mg PO DAILY [facility] Last Admin: 09/03/18 09:36 Dose: 40 mg Polyethylene Glycol (Miralax (For Daily Use) -) 17 gm PO DAILY [facility] Last Admin: 09/03/18 09:37 Dose: Not Given 48 year old gentleman with hx of Colon Ca on Chemo, Hypertension, CVA who presented with severe back pain and noted to develop ISMAEL during the hospital course. #Progressive worsening of renal function with decreasing urine output in setting of gram negative bactermiea/sepsis (urine Na very low indicating preserved tubular function, Urine Eos pending, no hydronephrosis seen on US) requiring HD #Anion gap metabolic acidosis #Gram negative bacteremia #Metastatic colon Ca s/p inpatient dialysis x 4 treatments, catheter is now removed will trend renal function with blood tests the next 2-3 days and monitor for stability Puga all meds for CrCl < 15 avoid nephrotoxins and IV contrast maintain MAP > 65 Sami Pulido DO
--- NOTE | 2018-09-03 11:32 | PN ---
Progress Note (short form) - Note Progress Note: PROGRESS NOTE FOR HEMATOLOGY/ONCOLOGY Patient seen and examined by me at bedside. Patient awake and alert today but remains slightly confused and drowsy Shiley removed today and patient going for 04/08 RT Otherwise, denies any fever, chills, nausea, vomiting, abdominal pain, chest pain, palpitations, shortness of breath Vital Signs Temperature 98.9 F 09/03/18 10:00 Pulse Rate 91 H 09/03/18 10:00 Respiratory Rate 20 09/03/18 10:00 Blood Pressure 125/78 09/03/18 10:00 O2 Sat by Pulse Oximetry (%) 99 09/03/18 09:00 PHYSICAL EXAMINATION GENERAL: Awake, slightly confused, anasarca, no acute distress EYES: conjunctiva clear. ENT: Moist mucous membranes LUNGS: Diminished breath sounds bilaterally with no crackles or wheezes HEART: RRR, normal S1 and S2 ABDOMEN: Soft, nontender, not distended, normoactive bowel sounds. Colostomy bag in place EXTREMITIES: 3+ Edema in UE and LE Laboratory Tests CBC, BMP 09/03/18 06:00 09/02/18 06:15 ASSESSMENT AND PLAN: Patient is a 48 year old male with metastatic rectal cancer with mets to the liver and lungs on 5-FU/Leucovorin who presented with severe left leg pain for > 1 weeks. Patient found to have sepsis and admitted for further monitoring and management. Problem List: Metastatic Rectal Cancer with perirectal mass extending through sciatic notch and into piriformis muscle. HTN ISMAEL on CKD Anemia of chronic disease Tumor fevers PLAN: -Pain adequately controlled with morphine and ms contin PRN -04/08 RT treatments completed today and patient reports adequate pain control -Juan Carlos removed today -Transfuse 1 unit PRBC -Continue to monitor
--- NOTE | 2018-09-03 12:13 | PN ---
Progress Note, Physician History of Present Illness: Much more awake and alert. Conversant. Offers no complaints Afebrile Repeat BC no growth Dialysis catheter removed - Current Medication List Current Medications: Active Medications Acetaminophen (Tylenol -) 650 mg PO Q6H PRN PRN Reason: FEVER Last Admin: 09/02/18 23:08 Dose: 650 mg Carvedilol (Coreg -) 12.5 mg PO BID [facility] Last Admin: 09/03/18 09:36 Dose: 12.5 mg Docusate Sodium (Colace -) 100 mg PO TID [facility] Last Admin: 09/03/18 05:56 Dose: Not Given Heparin Sodium (Porcine) (Heparin -) 5,000 unit SQ BID [facility] Last Admin: 09/03/18 09:36 Dose: 5,000 unit IV Flush (Vu-Cath Flush) 10 ml IVPUSH PRN PRN PRN Reason: protocol, patency maintenance Last Admin: 09/02/18 06:16 Dose: 10 ml IV Flush (Vu-Cath Flush) 10 ml IVPUSH PRN PRN PRN Reason: FLUSH Last Admin: 09/02/18 18:50 Dose: 10 ml Meropenem 500 mg/ Dextrose 100 mls @ 200 mls/hr IVPB BID [facility] Last Admin: 09/03/18 09:36 Dose: 200 mls/hr Metronidazole (Flagyl 500mg Premixed Ivpb -) 500 mg in 100 mls @ 100 mls/hr IVPB Q8H-IV [facility] Last Admin: 09/03/18 10:20 Dose: 100 mls/hr Midodrine (Proamatine -) 5 mg PO TID-MID [facility] Last Admin: 09/03/18 09:37 Dose: 5 mg Miscellaneous (Duragesic Patch Waste) 1 each TD PRN PRN PRN Reason: PAIN Morphine Sulfate (Morphine Sulfate) 3 mg IVPUSH Q4H PRN PRN Reason: PAIN LEVEL 7 - 10 Last Admin: 09/03/18 10:24 Dose: 3 mg Pantoprazole Sodium (Protonix -) 40 mg PO DAILY [facility] Last Admin: 09/03/18 09:36 Dose: 40 mg Polyethylene Glycol (Miralax (For Daily Use) -) 17 gm PO DAILY [facility] Last Admin: 09/03/18 09:37 Dose: Not Given - Objective Vital Signs: Vital Signs Temperature 98.9 F 09/03/18 10:00 Pulse Rate 91 H 09/03/18 10:00 Respiratory Rate 20 09/03/18 10:00 Blood Pressure 125/78 09/03/18 10:00 O2 Sat by Pulse Oximetry (%) 99 09/03/18 09:00 Constitutional: Yes: No Distress Eyes: Yes: Conjunctiva Clear Cardiovascular: Yes: Regular Rate and Rhythm, S1, S2 Respiratory: Yes: CTA Bilaterally Gastrointestinal: Yes: Normal Bowel Sounds, Soft. No: Tenderness Edema: No Integumentary: Yes: Other (port site no erythema) Labs: CBC, BMP 09/03/18 06:00 09/02/18 06:15 Assessment/Plan Anaerobic bactermia, likely GI source Recurrent fever resolved Metastatic ca Renal failure Repeat BC no growth Ceftriaxone / flagyl
--- NOTE | 2018-09-03 15:52 | PN ---
Teaching Attending Note Name of Resident: Mary Mendoza ATTENDING PHYSICIAN STATEMENT I saw and evaluated the patient. I reviewed the resident's note and discussed the case with the resident. I agree with the resident's findings and plan as documented. SUBJECTIVE: OBJECTIVE: ASSESSMENT AND PLAN: Patient seen and examined Seems less confused today RT ongoing Pain still reported as 7/10 Last Vital Signs Temp Pulse Resp BP Pulse Ox 99.2 F 90 20 138/93 99 09/03/18 15:08 09/03/18 15:08 09/03/18 15:08 09/03/18 15:08 09/03/18 09:00 HEENT: EZEQUIEL, EOM Intact Oropharynx: No thrush, No mucositis Cor: RSR, No murmurs, No gallops Lungs: Clear to P&A Abd: Soft, Normal bowel sounds, No organomegaly, functioning colostomy Ext:LE edema Skin: No rashes, Integument intact CBC, BMP 09/03/18 06:00 09/02/18 06:15 Current Medications Generic Name Dose Route Start Last Admin Trade Name Zacq PRN Reason Stop Dose Admin Acetaminophen 650 mg 08/23/18 14:35 09/02/18 23:08 Tylenol - PO 650 mg Q6H PRN Administration FEVER Carvedilol 12.5 mg 08/16/18 22:00 09/03/18 09:36 Coreg - PO 12.5 mg BID AJ Administration Docusate Sodium 100 mg 08/16/18 22:00 09/03/18 14:28 Colace - PO 100 mg TID AJ Administration Heparin Sodium (Porcine) 5,000 unit 08/27/18 22:00 09/03/18 09:36 Heparin - SQ 5,000 unit BID AJ Administration IV Flush 10 ml 08/18/18 22:39 09/02/18 06:16 Vu-Cath Flush IVPUSH 10 ml PRN PRN Administration protocol, patency maintenance IV Flush 10 ml 08/22/18 13:46 09/02/18 18:50 Vu-Cath Flush IVPUSH 10 ml PRN PRN Administration FLUSH Metronidazole 500 mg in 100 mls @ 100 mls/hr 08/27/18 18:00 09/03/18 10:20 Flagyl 500mg Premixed Ivpb - IVPB 100 mls/hr Q8H-IV AJ Administration Ceftriaxone Sodium 1 gm/ 50 mls @ 200 mls/hr 09/04/18 10:00 Dextrose IVPB DAILY AJ Protocol Midodrine 5 mg 08/29/18 14:00 09/03/18 14:28 Proamatine - PO 5 mg TID-MID AJ Administration Miscellaneous 1 each 08/26/18 18:51 Duragesic Patch Waste TD PRN PRN PAIN Morphine Sulfate 3 mg 08/31/18 20:54 09/03/18 14:28 Morphine Sulfate IVPUSH 3 mg Q4H PRN Administration PAIN LEVEL 7 - 10 Pantoprazole Sodium 40 mg 08/17/18 10:00 09/03/18 09:36 Protonix - PO 40 mg DAILY AJ Administration Polyethylene Glycol 17 gm 08/19/18 10:00 09/03/18 09:37 Miralax (For Daily Use) - PO Not Given DAILY AJ Impression: Metastatic colon ca Liver /lung mets Sacral Mets RT Anemia ISMAEL H.D Pain management Plan: Continue with RT Continue with antibiotics Transfuse one unit of packed cells.
--- NOTE | 2018-09-03 18:43 | PN ---
Progress Note (short form) - Note Progress Note: s/p HD yesterday - catheter removed better-- pain is much less\ able to move more he went for radiation also Vital Signs - 24 hr 09/02/18 09/03/18 09/03/18 20:49 01:44 06:59 Temperature 99.5 F 98.8 F Temperature [ Prior to transport] Temperature [ Return from therapy] Pulse Rate 89 87 Pulse Rate [ Prior to transport] Pulse Rate [ Return from therapy] Respiratory 18 18 18 Rate Respiratory Rate [Prior to transport] Respiratory Rate [Return from therapy] Blood Pressure 122/80 130/82 Blood Pressure [Prior to transport] Blood Pressure [Return from therapy] O2 Sat by Pulse 97 Oximetry (%) 09/03/18 09/03/18 09/03/18 09:00 10:00 14:16 Temperature 98.9 F Temperature [ 97.5 F L Prior to transport] Temperature [ 99.2 F Return from therapy] Pulse Rate 91 H Pulse Rate [ 100 H Prior to transport] Pulse Rate [ 88 Return from therapy] Respiratory 20 20 Rate Respiratory 18 Rate [Prior to transport] Respiratory 20 Rate [Return from therapy] Blood Pressure 125/78 Blood Pressure 136/80 [Prior to transport] Blood Pressure 138/94 [Return from therapy] O2 Sat by Pulse 99 Oximetry (%) 09/03/18 09/03/18 15:08 18:04 Temperature 99.2 F 99.2 F Temperature [ Prior to transport] Temperature [ Return from therapy] Pulse Rate 90 95 H Pulse Rate [ Prior to transport] Pulse Rate [ Return from therapy] Respiratory 20 18 Rate Respiratory Rate [Prior to transport] Respiratory Rate [Return from therapy] Blood Pressure 138/93 134/93 Blood Pressure [Prior to transport] Blood Pressure [Return from therapy] O2 Sat by Pulse Oximetry (%) Current Medications Generic Name Dose Route Start Last Admin Trade Name Freq PRN Reason Stop Dose Admin Acetaminophen 650 mg 08/23/18 14:35 09/02/18 23:08 Tylenol - PO 650 mg Q6H PRN Administration FEVER Carvedilol 12.5 mg 08/16/18 22:00 09/03/18 09:36 Coreg - PO 12.5 mg BID AJ Administration Docusate Sodium 100 mg 08/16/18 22:00 09/03/18 14:28 Colace - PO 100 mg TID AJ Administration Heparin Sodium (Porcine) 5,000 unit 08/27/18 22:00 09/03/18 09:36 Heparin - SQ 5,000 unit BID AJ Administration IV Flush 10 ml 08/18/18 22:39 09/02/18 06:16 Vu-Cath Flush IVPUSH 10 ml PRN PRN Administration protocol, patency maintenance IV Flush 10 ml 08/22/18 13:46 09/02/18 18:50 Vu-Cath Flush IVPUSH 10 ml PRN PRN Administration FLUSH Metronidazole 500 mg in 100 mls @ 100 mls/hr 08/27/18 18:00 09/03/18 17:31 Flagyl 500mg Premixed Ivpb - IVPB 100 mls/hr Q8H-IV AJ Administration Ceftriaxone Sodium 1 gm/ 50 mls @ 200 mls/hr 09/04/18 10:00 Dextrose IVPB DAILY AJ Protocol Midodrine 5 mg 08/29/18 14:00 09/03/18 17:32 Proamatine - PO 5 mg TID-MID AJ Administration Miscellaneous 1 each 08/26/18 18:51 Duragesic Patch Waste TD PRN PRN PAIN Morphine Sulfate 3 mg 08/31/18 20:54 09/03/18 14:28 Morphine Sulfate IVPUSH 3 mg Q4H PRN Administration PAIN LEVEL 7 - 10 Pantoprazole Sodium 40 mg 08/17/18 10:00 09/03/18 09:36 Protonix - PO 40 mg DAILY AJ Administration Polyethylene Glycol 17 gm 08/19/18 10:00 09/03/18 09:37 Miralax (For Daily Use) - PO Not Given DAILY [facility] Laboratory Results - last 24 hr 09/03/18 06:00 WBC 12.9 H RBC 2.74 L Hgb 7.7 L Hct 22.8 L MCV 83.3 MCH 28.1 MCHC 33.7 RDW 19.1 H Plt Count 322 MPV 8.2 S1 S2 RRR Anorexic Lungs decreased Abd - soft, NT, Colostomy functioning Ext- B/L leg edema, left arm edema, penile edema decreased- able to move PLAN off dialysis pain control physical therapy transfuse PRBC as needed Problem List - Problems (1) Intractable back pain Code(s): M54.9 - DORSALGIA, UNSPECIFIED (2) Metastatic colon cancer to liver Code(s): C18.9 - MALIGNANT NEOPLASM OF COLON, UNSPECIFIED; C78.7 - SECONDARY MALIG NEOPLASM OF LIVER AND INTRAHEPATIC BILE DUCT (3) Neuropathy Code(s): G62.9 - POLYNEUROPATHY, UNSPECIFIED (4) Sciatica of left side Code(s): M54.32 - SCIATICA, LEFT SIDE (5) Hypertension Code(s): I10 - ESSENTIAL (PRIMARY) HYPERTENSION
--- NOTE | 2018-09-03 20:16 | PN ---
Progress Note (short form) - Note Progress Note: Radiation Oncology Still having pain but a bit improved. Less confused today. MRI pelvis reviewed: presacral mass involving sacral foramina and encasing nerve roots S1-4, with possible muscle invasion. On HD for ISMAEL. Completed 7/10 fractions of RT, will continue as tolerated. 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 Pain management. HD
[2018-09-03] MEDS ORDERED: VANCOMYCIN 1 GRAM (PRE-DOCKED) 1,000 MG/250 ML BAG IVPB ONE (22:10)
--- NOTE | 2018-09-03 22:19 | HOSP ---
Physical Examination Vital Signs: Vital Signs Temperature 99.2 F 09/03/18 18:04 Pulse Rate 95 H 09/03/18 18:04 Respiratory Rate 18 09/03/18 21:00 Blood Pressure 134/93 09/03/18 18:04 O2 Sat by Pulse Oximetry (%) 98 09/03/18 21:00 Labs: CBC, BMP 09/03/18 06:00 09/02/18 06:15 Hospitalist Encounter Assessment: Patient noted to have purulent blister on left calf which burst. Advised nurse to send wound culture, and apply dry gauze. Ordered 1g vancomycin. ID to follow up.
[2018-09-03] MEDS: ACETAMINOPHEN 325 MG TABLET (FP) PO PRN (23:15)
[2018-09-04] MEDS: DOCUSATE SODIUM 100 MG CAPSULE (FP) PO SCH ×3 (05:44→21:40)
[2018-09-04] MEDS ORDERED: MORPHINE SULFATE 2 MG/ML VIAL IVPUSH ONE (05:50)
[2018-09-04] MEDS ORDERED: morphine SULFATE 4 MG/ML VIAL ONE (05:54)
[2018-09-04 07:11] LABS: BASO % 0.6 % (0-2.0); EOS % 0.3 % (0-4.5); HEMATOCRIT 22.7 % (35.4-49); HEMOGLOBIN 7.4 GM/dL (11.7-16.9); MCH 27.3 pg (25.7-33.7); MCHC 32.8 g/dl (32.0-35.9); MEAN CELL VOLUME 83.3 fl (80-96); MEAN PLT VOLUME 7.9 fl (7.5-11.1); MONO % 7.9 % (3.8-10.2); NEUT % 86.2 % (42.8-82.8); PLATELET COUNT 297 K/MM3 (134-434); RBC 2.72 M/mm3 (4.00-5.60); WHITE BLOOD COUNT 11.4 K/mm3 (4.0-10.0)
[2018-09-04 07:39] LABS: ALBUMIN 1.1 g/dl (3.4-5.0); ALK PHOS 473 U/L (45-117); ANION GAP 8 MMOL/L (8-16); BILIRUBIN,TOTAL 0.8 mg/dL (0.2-1); BLOOD UREA NITROGEN 53 mg/dL (7-18); CHLORIDE 102 mmol/L (98-107); CO2 29 mmol/L (21-32); CREATININE 2.7 mg/dL (0.55-1.3); GLUCOSE,RANDOM 80 mg/dL (74-106); MAGNESIUM 2.2 mg/dL (1.8-2.4); PHOSPHOROUS 4.7 mg/dL (2.5-4.9); POTASSIUM 4.4 mmol/L (3.5-5.1); SGOT/AST 47 U/L (15-37); SGPT/ALT 9 U/L (13-61); SODIUM 139 mmol/L (136-145); TOT PROT 4.2 g/dl (6.4-8.2)
[2018-09-04 08:05] LABS: CALCIUM 6.9 mg/dL (8.5-10.1)
[2018-09-04] MEDS ORDERED: DEXTROSE 5%-WATER - 50 ML IVPB ONE (09:35)
[2018-09-04] MEDS ORDERED: cefTRIAXone SODIUM 1 GM VIAL ONE (09:35)
[2018-09-04] MEDS ORDERED: MORPHINE SULFATE 2 MG/ML VIAL IVPB PRN (09:38)
[2018-09-04] MEDS: CEFTRIAXONE 1 GM in DEXTROSE 5%-WATER - 50 ML IVPB SCH (10:05)
[2018-09-04] MEDS: MIDODRINE HCL 5 MG TABLET PO SCH ×2 (10:06→15:55)
[2018-09-04] MEDS: POLYETHYLENE GLYCOL 3350 119 GM BTL PO SCH (10:06)
[2018-09-04] MEDS: CARVEDILOL 12.5 MG TABLET (FP) PO SCH ×2 (10:06→21:40)
[2018-09-04] MEDS: PANTOPRAZOLE 40 MG TABLET (FP) PO SCH (10:06)
[2018-09-04] MEDS ORDERED: morphine CARPU-JECT 2 MG/1 ML DISP.SYRIN IVPUSH ONE (10:44)
--- NOTE | 2018-09-04 10:53 | PN ---
Progress Note (short form) - Note Progress Note: PROGRESS NOTE FOR HEMATOLOGY/ONCOLOGY Patient seen and examined by me at bedside. Patients pain slightly improved overall however, patient has purulent discharge from blister on left calf. Overnight, patient had 1gm Vancomycin. 04/08 RT completed, to have 8th today Otherwise, denies any fever, chills, nausea, vomiting, abdominal pain, chest pain, palpitations, shortness of breath Vital Signs Temperature 98.6 F 09/04/18 05:41 Pulse Rate 77 09/04/18 05:41 Respiratory Rate 18 09/04/18 05:41 Blood Pressure 120/88 09/04/18 05:41 O2 Sat by Pulse Oximetry (%) 98 09/03/18 21:00 PHYSICAL EXAMINATION GENERAL: Awake, slightly confused, anasarca, no acute distress EYES: conjunctiva clear. ENT: Moist mucous membranes LUNGS: Diminished breath sounds bilaterally with no crackles or wheezes HEART: RRR, normal S1 and S2 ABDOMEN: Soft, nontender, not distended, normoactive bowel sounds. Colostomy bag in place EXTREMITIES: 3+ Edema in UE and LE erythema and warmth on lateral aspect of left leg. Purulent discharge from 0.5x0.5cm blister. Laboratory Tests 09/04/18 06:00 09/04/18 06:00 ASSESSMENT AND PLAN: Patient is a 48 year old male with metastatic rectal cancer with mets to the liver and lungs on 5-FU/Leucovorin who presented with severe left leg pain for > 1 weeks. Patient found to have sepsis and admitted for further monitoring and management. Problem List: Metastatic Rectal Cancer with perirectal mass extending through sciatic notch and into piriformis muscle. HTN ISMAEL on CKD Anemia of chronic disease Tumor fevers Left Calf Blister PLAN: -Morphine increased to 3mg Q4H due to new painful blister -U/S of LLE to rule out collection -Vancomycin ordered last night. Will call ID -Continue RT, 04/08 completed. Plans for the today -Wound cultures pending -Kidney function improving. Monitor off dialysis -Transfuse PRBC PRN
[2018-09-04] MEDS ORDERED: MORPHINE SULFATE 2 MG/ML VIAL IVPB ONE (11:00)
[2018-09-04] MEDS ORDERED: VANCOMYCIN 1 GRAM (PRE-DOCKED) 1,000 MG/250 ML BAG IVPB ONE (12:52)
--- NOTE | 2018-09-04 12:52 | PN ---
Progress Note, Physician History of Present Illness: Awake and alert. Conversant. Papa pus noted to be spontaneously draining from L calf sinus Afebrile Wound c/s obtained - Current Medication List Current Medications: Active Medications Acetaminophen (Tylenol -) 650 mg PO Q6H PRN PRN Reason: FEVER Last Admin: 09/03/18 23:15 Dose: 650 mg Carvedilol (Coreg -) 12.5 mg PO BID [facility] Last Admin: 09/04/18 10:06 Dose: 12.5 mg Docusate Sodium (Colace -) 100 mg PO TID [facility] Last Admin: 09/04/18 05:44 Dose: 100 mg IV Flush (Vu-Cath Flush) 10 ml IVPUSH PRN PRN PRN Reason: protocol, patency maintenance Last Admin: 09/02/18 06:16 Dose: 10 ml IV Flush (Vu-Cath Flush) 10 ml IVPUSH PRN PRN PRN Reason: FLUSH Last Admin: 09/02/18 18:50 Dose: 10 ml Metronidazole (Flagyl 500mg Premixed Ivpb -) 500 mg in 100 mls @ 100 mls/hr IVPB Q8H-IV AJ Last Admin: 09/04/18 12:16 Dose: 100 mls/hr Ceftriaxone Sodium 1 gm/ (Dextrose) 50 mls @ 200 mls/hr IVPB DAILY [facility]; Protocol Last Admin: 09/04/18 10:05 Dose: 200 mls/hr Midodrine (Proamatine -) 5 mg PO TID-MID [facility] Last Admin: 09/04/18 10:06 Dose: 5 mg Miscellaneous (Duragesic Patch Waste) 1 each TD PRN PRN PRN Reason: PAIN Morphine Sulfate (Morphine Sulfate) 3 mg IVPB Q4H PRN PRN Reason: PAIN LEVEL 4 - 6 Pantoprazole Sodium (Protonix -) 40 mg PO DAILY [facility] Last Admin: 09/04/18 10:06 Dose: 40 mg Polyethylene Glycol (Miralax (For Daily Use) -) 17 gm PO DAILY [facility] Last Admin: 09/04/18 10:06 Dose: 17 grams - Objective Vital Signs: Vital Signs Temperature 98.1 F 09/04/18 11:02 Pulse Rate 85 09/04/18 11:02 Respiratory Rate 20 09/04/18 11:02 Blood Pressure 127/86 09/04/18 11:02 O2 Sat by Pulse Oximetry (%) 99 09/04/18 09:00 Constitutional: Yes: No Distress Eyes: Yes: Conjunctiva Clear Cardiovascular: Yes: Regular Rate and Rhythm, S1, S2 Respiratory: Yes: CTA Bilaterally Gastrointestinal: Yes: Soft, Other (+ ostomy). No: Tenderness Extremities: Yes: Other (+ induration L calf extendeing to L thigh, expressible pus) Labs: CBC, BMP 09/04/18 06:00 09/04/18 06:00 Assessment/Plan Soft tissue abscess L calf Anaerobic bactermia, likely GI source Recurrent fever resolved Metastatic ca Renal failure Wound c/s sent Surgical evaluation Vancomycin 1gm x1 Ceftriaxone / flagyl
--- NOTE | 2018-09-04 12:53 | PN ---
Progress Note (short form) - Note Progress Note: off dialysis blister on back of left calf burst on its own yesterday and as per RN-- copious amount of purulent fluid still oozing- has pain in left leg better-- pain is much less able to move more he went for radiation today Vital Signs - 24 hr 09/03/18 09/03/18 09/03/18 14:16 15:08 18:04 Temperature 99.2 F 99.2 F Temperature [ 97.5 F L Prior to transport] Temperature [ 99.2 F Return from therapy] Pulse Rate 90 95 H Pulse Rate [ 100 H Prior to transport] Pulse Rate [ 88 Return from therapy] Respiratory 20 18 Rate Respiratory 18 Rate [Prior to transport] Respiratory 20 Rate [Return from therapy] Blood Pressure 138/93 134/93 Blood Pressure 136/80 [Prior to transport] Blood Pressure 138/94 [Return from therapy] O2 Sat by Pulse Oximetry (%) 09/03/18 09/03/18 09/04/18 21:00 22:00 01:34 Temperature 99.4 F 98.9 F Temperature [ Prior to transport] Temperature [ Return from therapy] Pulse Rate 84 80 Pulse Rate [ Prior to transport] Pulse Rate [ Return from therapy] Respiratory 18 20 18 Rate Respiratory Rate [Prior to transport] Respiratory Rate [Return from therapy] Blood Pressure 133/90 129/81 Blood Pressure [Prior to transport] Blood Pressure [Return from therapy] O2 Sat by Pulse 98 Oximetry (%) 09/04/18 09/04/18 09/04/18 05:41 09:00 10:00 Temperature 98.6 F 98.0 F Temperature [ Prior to transport] Temperature [ Return from therapy] Pulse Rate 77 83 Pulse Rate [ Prior to transport] Pulse Rate [ Return from therapy] Respiratory 18 18 18 Rate Respiratory Rate [Prior to transport] Respiratory Rate [Return from therapy] Blood Pressure 120/88 131/83 Blood Pressure [Prior to transport] Blood Pressure [Return from therapy] O2 Sat by Pulse 99 Oximetry (%) 09/04/18 11:02 Temperature Temperature [ 98.1 F Prior to transport] Temperature [ 98.4 F Return from therapy] Pulse Rate Pulse Rate [ 85 Prior to transport] Pulse Rate [ 78 Return from therapy] Respiratory Rate Respiratory 20 Rate [Prior to transport] Respiratory 20 Rate [Return from therapy] Blood Pressure Blood Pressure 127/86 [Prior to transport] Blood Pressure 136/88 [Return from therapy] O2 Sat by Pulse Oximetry (%) Current Medications Generic Name Dose Route Start Last Admin Trade Name Libby PRN Reason Stop Dose Admin Acetaminophen 650 mg 08/23/18 14:35 09/03/18 23:15 Tylenol - PO 650 mg Q6H PRN Administration FEVER Carvedilol 12.5 mg 08/16/18 22:00 09/04/18 10:06 Coreg - PO 12.5 mg BID AJ Administration Docusate Sodium 100 mg 08/16/18 22:00 09/04/18 05:44 Colace - PO 100 mg TID AJ Administration IV Flush 10 ml 08/18/18 22:39 09/02/18 06:16 Vu-Cath Flush IVPUSH 10 ml PRN PRN Administration protocol, patency maintenance IV Flush 10 ml 08/22/18 13:46 09/02/18 18:50 Vu-Cath Flush IVPUSH 10 ml PRN PRN Administration FLUSH Metronidazole 500 mg in 100 mls @ 100 mls/hr 08/27/18 18:00 09/04/18 12:16 Flagyl 500mg Premixed Ivpb - IVPB 100 mls/hr Q8H-IV AJ Administration Ceftriaxone Sodium 1 gm/ 50 mls @ 200 mls/hr 09/04/18 10:00 09/04/18 10:05 Dextrose IVPB 200 mls/hr DAILY AJ Administration Protocol Vancomycin HCl 1,000 mg/ 250 mls @ 166.667 mls/hr 09/04/18 12:52 Dextrose IVPB 09/04/18 14:21 ONCE ONE Protocol Midodrine 5 mg 08/29/18 14:00 09/04/18 10:06 Proamatine - PO 5 mg TID-MID AJ Administration Miscellaneous 1 each 08/26/18 18:51 Duragesic Patch Waste TD PRN PRN PAIN Morphine Sulfate 3 mg 09/04/18 10:44 Morphine Sulfate IVPB Q4H PRN PAIN LEVEL 4 - 6 Pantoprazole Sodium 40 mg 08/17/18 10:00 09/04/18 10:06 Protonix - PO 40 mg DAILY AJ Administration Polyethylene Glycol 17 gm 08/19/18 10:00 09/04/18 10:06 Miralax (For Daily Use) - PO 17 grams DAILY AJ Administration Abnormal Lab Results 09/01/18 09/04/18 09/04/18 14:50 06:00 06:00 WBC 11.4 H RBC 2.72 L Hgb 7.4 L Hct 22.7 L RDW 19.0 H Absolute Neuts (auto) 9.8 H Neutrophils % 86.2 H Lymphocytes % 5.0 L D BUN 53 H Creatinine 2.7 H Calcium 6.9 L* AST 47 H ALT 9 L Alkaline Phosphatase 473 H Total Protein 4.2 L Albumin 1.1 L Crossmatch See Detail S1 S2 RRR Anorexic Lungs decreased Abd - soft, NT, Colostomy functioning Ext- B/L leg edema, left arm edema, penile edema decreased- able to move left calf-- dressing is soaked, removed-- oozing noted from open wound- tender + PLAN will order CT lower extremity for further collection pain control spoke with ID Surgical eval continue with current meds transfuse as needed Problem List - Problems (1) Intractable back pain Code(s): M54.9 - DORSALGIA, UNSPECIFIED (2) Metastatic colon cancer to liver Code(s): C18.9 - MALIGNANT NEOPLASM OF COLON, UNSPECIFIED; C78.7 - SECONDARY MALIG NEOPLASM OF LIVER AND INTRAHEPATIC BILE DUCT (3) Neuropathy Code(s): G62.9 - POLYNEUROPATHY, UNSPECIFIED (4) Sciatica of left side Code(s): M54.32 - SCIATICA, LEFT SIDE (5) Hypertension Code(s): I10 - ESSENTIAL (PRIMARY) HYPERTENSION
--- NOTE | 2018-09-04 15:55 | PN ---
Progress Note (short form) - Note Progress Note: Radiation Oncology Pelvic/hip pain improving, now having pain from left calf wound. MRI pelvis reviewed: presacral mass involving sacral foramina and encasing nerve roots S1-4, with possible muscle invasion. Completed 8/10 fractions of RT, will continue as tolerated. 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 Pain management. Abx and ID f/u.
--- NOTE | 2018-09-04 16:05 | PN ---
Progress Note (short form) - Note Progress Note: Renal follow up for ISMAEL Pt seen and examined at the bedside awake and alert has pus draining behind knee has some pins and needles feeling behind knee no fever, chills making urine via gilmore Vital Signs Temperature 98.1 F 09/04/18 11:02 Pulse Rate 85 09/04/18 11:02 Respiratory Rate 20 09/04/18 11:02 Blood Pressure 127/86 09/04/18 11:02 O2 Sat by Pulse Oximetry (%) 99 09/04/18 09:00 Intake & Output 09/01/18 09/02/18 09/03/18 09/04/18 23:59 23:59 23:59 23:59 Intake Total 150 706 006 4350 Output Total 550 450 650 200 Balance -400 -50 0 850 NAD awake and alert ++ edema in LE gilmore in place CBC, BMP 09/04/18 06:00 09/04/18 06:00 Current Medications Acetaminophen (Tylenol -) 650 mg PO Q6H PRN PRN Reason: FEVER Last Admin: 09/03/18 23:15 Dose: 650 mg Carvedilol (Coreg -) 12.5 mg PO BID AJ Last Admin: 09/04/18 10:06 Dose: 12.5 mg Docusate Sodium (Colace -) 100 mg PO TID [facility] Last Admin: 09/04/18 13:58 Dose: Not Given IV Flush (Vu-Cath Flush) 10 ml IVPUSH PRN PRN PRN Reason: protocol, patency maintenance Last Admin: 09/02/18 06:16 Dose: 10 ml IV Flush (Vu-Cath Flush) 10 ml IVPUSH PRN PRN PRN Reason: FLUSH Last Admin: 09/02/18 18:50 Dose: 10 ml Metronidazole (Flagyl 500mg Premixed Ivpb -) 500 mg in 100 mls @ 100 mls/hr IVPB Q8H-IV AJ Last Admin: 09/04/18 12:16 Dose: 100 mls/hr Ceftriaxone Sodium 1 gm/ (Dextrose) 50 mls @ 200 mls/hr IVPB DAILY [facility]; Protocol Last Admin: 09/04/18 10:05 Dose: 200 mls/hr Miscellaneous (Duragesic Patch Waste) 1 each TD PRN PRN PRN Reason: PAIN Morphine Sulfate (Morphine Sulfate) 3 mg IVPB Q4H PRN PRN Reason: PAIN LEVEL 4 - 6 Pantoprazole Sodium (Protonix -) 40 mg PO DAILY [facility] Last Admin: 09/04/18 10:06 Dose: 40 mg Polyethylene Glycol (Miralax (For Daily Use) -) 17 gm PO DAILY [facility] Last Admin: 09/04/18 10:06 Dose: 17 grams 48 year old gentleman with hx of Colon Ca on Chemo, Hypertension, CVA who presented with severe back pain and noted to develop ISMAEL during the hospital course. #Progressive worsening of renal function with decreasing urine output in setting of gram negative bactermiea/sepsis (urine Na very low indicating preserved tubular function, Urine Eos pending, no hydronephrosis seen on US) requiring HD #Anion gap metabolic acidosis #Gram negative bacteremia #Metastatic colon Ca Cr stable in the last 48 hours which is indicative of improved renal function continue foely for now trend renal function and electrolytes d/c Midodrine s/p Vanco x 2, check level in am before additional done given continue Abx as per DIVINA Pulido DO
[2018-09-04] MEDS: morphine SULFATE 4 MG/ML VIAL IVPB PRN (16:06)
--- NOTE | 2018-09-04 16:20 | CONSULT ---
Consult Consult Specialty:: General surgery Reason for Consultation:: left calf abscess - History of Present Illness Chief Complaint: left calf abscess rupture History of Present Illness: 48yo PMH significant for metastatic rectal cancer BRAF mutated/KRAS wild type/ MSIstable, with liver/lung mets, s/p surgery, ON FOLFOX/avastin, recent oxaliplatin neuropathy and had been on 5-FU/leucovorin/avastin, recent scans on 08/07 showing progressive disease, comes in with left leg severe pain of 1 week duration. MRI T/L spine show no cord compression. Recurrent 6 cm pelvic mass encroaching sciatic foramen,liver mets, lung mets. He was noted to have spontaneous drainge of left calf abscess. We were asked to evaluate. 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: CVA (with dizziness and LLE paresis about 1 year ago which resolved at [facility]) Cardio/Vascular: Yes: HTN, Hyperlipdemia Gastrointestinal: Yes: Cancer, Constipation - Past Surgical History Past Surgical History: Yes: Colostomy - Alcohol/Substance Use Hx Alcohol Use: No History of Substance Use: reports: None - Smoking History Smoking history: Never smoked Have you smoked in the past 12 months: No - Social History Usual Living Arrangement: With Spouse ADL: Independent 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 Place of : [facility] History of Recent Travel: No Home Medications - Allergies Allergies/Adverse Reactions: Allergies Allergy/AdvReac Type Severity Reaction Status Date / Time shellfish derived Allergy Verified 08/16/18 05:16 - Home Medications Home Medications: Ambulatory Orders Losartan/Hydrochlorothiazide [Hyzaar 100-25 Tablet] 1 each PO DAILY #14 tablet 11/18/14 Carvedilol [Coreg -] 12.5 mg PO BID #28 tablet 09/18/16 Acetaminophen [Tylenol .Regular Strength -] 650 mg PO Q4H PRN tablet 10/29/17 Family Disease History - Family Disease History Family Disease History: CA: Sister ( ovarian cancer in her 30s), Other: Father (CVA, HTN, colon polyps ), Mother (HTN, no polyps on colonoscopy) Review of Systems - Review of Systems Constitutional: reports: Unintentional Wgt. Loss. denies: Chills, Fever Eyes: denies: Blind Spots, Recent Change in Vision HENT: denies: Difficult Swallowing, Throat Pain Neck: denies: Decreased ROM, Pain on Movement Cardiovascular: denies: Chest Pain, Palpitations Respiratory: denies: Cough, SOB Gastrointestinal: denies: Abdominal Pain, Constipation Genitourinary: denies: Dysuria, Flank Pain Breasts: reports: No Symptoms Reported. denies: Pain Musculoskeletal: reports: Extremity Pain, Joint Pain, Muscle Weakness Integumentary: denies: Erythema, Lesions, Rash Neurological: denies: Confusion, Dizziness, Syncope Endocrine: denies: Unexplained Weight Gain, Unexplained Weight Loss Hematology/Lymphatic: denies: Easily Bruised, Excessive Bleeding Psychiatric: reports: Depression. denies: Anxiety Physical Exam Vital Signs: Vital Signs Temperature 98.1 F 09/04/18 11:02 Pulse Rate 85 09/04/18 11:02 Respiratory Rate 20 09/04/18 11:02 Blood Pressure 127/86 09/04/18 11:02 O2 Sat by Pulse Oximetry (%) 99 09/04/18 09:00 Constitutional: Yes: Well Nourished, No Distress, Calm Eyes: Yes: Conjunctiva Clear, EOM Intact HENT: Yes: Atraumatic, Normocephalic Neck: Yes: Supple, Trachea Midline Cardiovascular: Yes: Regular Rate and Rhythm, S1, S2 Respiratory: Yes: Regular, CTA Bilaterally Gastrointestinal: Yes: Normal Bowel Sounds, Soft. No: Tenderness ...Rectal Exam: Yes: Deferred Renal/: No: CVA Tenderness - Left, CVA Tenderness - Right Musculoskeletal: Yes: Joint Swelling (left leg below the knee), Muscle Weakness (LE Bilaterally) Extremities: Yes: Erythema. No: Cool, Cyanosis Edema: Yes Edema: LLE: 3+ (left leg below the knee) Peripheral Pulses WNL: Yes Integumentary: No: Jaundice Wound/Incision: Yes: Draining (left calf from posterior punctum) Neurological: Yes: Alert, Oriented Psychiatric: Yes: Alert, Oriented Labs: CBC, BMP 09/04/18 06:00 09/04/18 06:00 Imaging - Results Cat Scan: Report Reviewed, Image Reviewed (posterior calf abscess.) Problem List - Problems (1) Calf abscess Assessment/Plan: 48 yo male MMP with large posterior calf abscess. IV antibiotics Bedside I&D of left calf abscess Discussed with patient risks, benefits and alternatives for aforementioned procedure, including but not limited to bleeding, infection, injury to adjacent structures, need for further procedures, ; alternatives include antibiotics , delayed or no surgery - risks of this include failure of nonoperative therapy , sepsis, recurrence, . Patient desires to proceed with operation - will take to OR for above. Informed consent signed for same. Thank you for the opportunity to participate in the care of this patient. Code(s): L02.419 - CUTANEOUS ABSCESS OF LIMB, UNSPECIFIED (2) Intractable back pain Code(s): M54.9 - DORSALGIA, UNSPECIFIED (3) Metastatic colon cancer to liver Code(s): C18.9 - MALIGNANT NEOPLASM OF COLON, UNSPECIFIED; C78.7 - SECONDARY MALIG NEOPLASM OF LIVER AND INTRAHEPATIC BILE DUCT (4) Sciatica of left side Code(s): M54.32 - SCIATICA, LEFT SIDE (5) CVA (cerebral vascular accident) Code(s): I63.9 - CEREBRAL INFARCTION, UNSPECIFIED (6) Hypertension Code(s): I10 - ESSENTIAL (PRIMARY) HYPERTENSION
--- NOTE | 2018-09-04 19:38 | PN ---
Progress Note (short form) - Note Progress Note: PAtient seen and examined Left leg pain confused anasarca Last Vital Signs Temp Pulse Resp BP Pulse Ox 99.1 F 96 H 18 100/70 98 08/31/18 17:24 08/31/18 17:24 08/31/18 17:24 08/31/18 17:24 08/31/18 09:00 Cor: RSR, No murmurs, No gallops Lungs: Clear to P&A Abd: Soft, Normal bowel sounds, No organomegaly Ext:LLE edema scrotal edema Labs/meds reviewed A/P 48 y/o with metastatic rectal cancer BRAF mutated/KRAS wild type/ MSIstable, with liver/lung mets, s/p surgery, ON FOLFOX/avastin, recent oxaliplatin neuropathy and had been on 5-FU/leucovorin/avastin, recent scans on 08/07 showing progressive disease, comes in with left leg severe pain of 1 week duration. MRI T/L spine show no cord compression Recurrent 6 cm pelvic mass encroaching sciatic foramen,liver mets, lung mets satrted RT to pelvic mass . 05/09 treatments Pain medication prior to RT Acute renal failure- improving off dialysis let leg cellulitis --on vancomycin surgical consult
[2018-09-05] MEDS: morphine SULFATE 4 MG/ML VIAL IVPB PRN ×3 (05:48→17:09)
[2018-09-05] MEDS: DOCUSATE SODIUM 100 MG CAPSULE (FP) PO SCH ×3 (05:49→23:02)
[2018-09-05 07:29] LABS: BASO % 0.8 % (0-2.0); EOS % 0.6 % (0-4.5); HEMATOCRIT 26.4 % (35.4-49); HEMOGLOBIN 8.5 GM/dL (11.7-16.9); LYMPH % 3.4 % (8-40); MCHC 32.3 g/dl (32.0-35.9); MEAN CELL VOLUME 83.6 fl (80-96); MONO % 7.2 % (3.8-10.2); PLATELET COUNT 309 K/MM3 (134-434); RBC 3.15 M/mm3 (4.00-5.60); RDW 18.4 % (11.9-15.9)
[2018-09-05 08:08] LABS: ALBUMIN 1.1 g/dl (3.4-5.0); ALK PHOS 540 U/L (45-117); ANION GAP 8 MMOL/L (8-16); BILIRUBIN,TOTAL 0.8 mg/dL (0.2-1); BLOOD UREA NITROGEN 54 mg/dL (7-18); CALCIUM 7.1 mg/dL (8.5-10.1); CHLORIDE 103 mmol/L (98-107); CO2 28 mmol/L (21-32); CREATININE 2.5 mg/dL (0.55-1.3); GLUCOSE,RANDOM 76 mg/dL (74-106); MAGNESIUM 2.3 mg/dL (1.8-2.4); PHOSPHOROUS 4.8 mg/dL (2.5-4.9); POTASSIUM 4.4 mmol/L (3.5-5.1); SGOT/AST 47 U/L (15-37); SGPT/ALT 10 U/L (13-61); SODIUM 139 mmol/L (136-145); TOT PROT 4.3 g/dl (6.4-8.2)
[2018-09-05] MEDS ORDERED: DEXTROSE 5%-WATER - 50 ML IVPB ONE (09:03)
[2018-09-05] MEDS ORDERED: cefTRIAXone SODIUM 1 GM VIAL ONE (09:03)
[2018-09-05] MEDS: CEFTRIAXONE 1 GM in DEXTROSE 5%-WATER - 50 ML IVPB SCH (09:24)
[2018-09-05] MEDS: POLYETHYLENE GLYCOL 3350 119 GM BTL PO SCH (09:28)
[2018-09-05] MEDS: CARVEDILOL 12.5 MG TABLET (FP) PO SCH ×2 (09:28→23:02)
[2018-09-05] MEDS: PANTOPRAZOLE 40 MG TABLET (FP) PO SCH (09:28)
--- NOTE | 2018-09-05 10:44 | PN ---
Progress Note (short form) - Note Progress Note: pt seen/ examined chart reviewed awake/ comfortable alert / awake now going for RT ct scan noted/ no distress had discussed with Dr. Harris yesterday pain much better Vital Signs Temp 98.6 F 09/05/18 06:07 Pulse 75 09/05/18 06:07 Resp 20 09/05/18 06:07 BP 140/88 09/05/18 06:07 Pulse Ox 97 09/04/18 20:04 Intake & Output 09/04/18 09/04/18 09/05/18 11:59 23:59 11:59 Intake Total 1050 400 550 Output Total 200 600 400 Balance 850 -200 150 Intake: IVPB 350 400 100 Oral 700 100 Packed Cells 350 Output: Urine 200 600 400 Mancia 200 600 400 Other: Voiding Method Indwelling Catheter Indwelling Catheter Indwelling Catheter Active Medications Acetaminophen (Tylenol -) 650 mg PO Q6H PRN PRN Reason: FEVER Last Admin: 09/03/18 23:15 Dose: 650 mg Carvedilol (Coreg -) 12.5 mg PO BID [facility] Last Admin: 09/05/18 09:28 Dose: 12.5 mg Docusate Sodium (Colace -) 100 mg PO TID AJ Last Admin: 09/05/18 05:49 Dose: 100 mg IV Flush (Vu-Cath Flush) 10 ml IVPUSH PRN PRN PRN Reason: protocol, patency maintenance Last Admin: 09/02/18 06:16 Dose: 10 ml IV Flush (Vu-Cath Flush) 10 ml IVPUSH PRN PRN PRN Reason: FLUSH Last Admin: 09/02/18 18:50 Dose: 10 ml Metronidazole (Flagyl 500mg Premixed Ivpb -) 500 mg in 100 mls @ 100 mls/hr IVPB Q8H-IV AJ Last Admin: 09/05/18 09:21 Dose: 100 mls/hr Ceftriaxone Sodium 1 gm/ (Dextrose) 50 mls @ 200 mls/hr IVPB DAILY [facility]; Protocol Last Admin: 09/05/18 09:24 Dose: 200 mls/hr Miscellaneous (Duragesic Patch Waste) 1 each TD PRN PRN PRN Reason: PAIN Morphine Sulfate (Morphine Sulfate) 3 mg IVPB Q4H PRN PRN Reason: PAIN LEVEL 4 - 6 Last Admin: 09/05/18 09:26 Dose: 3 mg Pantoprazole Sodium (Protonix -) 40 mg PO DAILY AJ Last Admin: 09/05/18 09:28 Dose: 40 mg Polyethylene Glycol (Miralax (For Daily Use) -) 17 gm PO DAILY AJ Last Admin: 09/05/18 09:28 Dose: Not Given CBC, BMP 09/05/18 06:00 09/05/18 06:00 ct scan- reviewed Physical Exam Awake/ comfortable S1 S2 RRR Lungs decreased at bases Abd - soft, NT, Colostomy functioning Ext- left lower extremity - dressing + PLAN better continue present care abx dialysis per renal RT PT surgery also on case will follow discussed with nursing staff Problem List - Problems (1) Neuropathy Code(s): G62.9 - POLYNEUROPATHY, UNSPECIFIED (2) Sciatica of left side Code(s): M54.32 - SCIATICA, LEFT SIDE (3) Adenocarcinoma Code(s): C80.1 - MALIGNANT (PRIMARY) NEOPLASM, UNSPECIFIED (4) Hypertension Code(s): I10 - ESSENTIAL (PRIMARY) HYPERTENSION (5) Old cerebrovascular accident (CVA) without late effect Code(s): Z86.73 - PRSNL HX OF TIA (TIA), AND CEREB INFRC W/O RESID DEFICITS
[2018-09-05 10:56] LABS: ANISOCYTOSIS 1+; MACROCYTOSIS 0; PLATELET ESTIMATE NORMAL
--- NOTE | 2018-09-05 12:06 | PN ---
Progress Note (short form) - Note Progress Note: Renal follow up for ISMAEL Pt seen and examined at the bedside Vital Signs Temperature 98 F 09/05/18 11:52 Pulse Rate 81 09/05/18 11:52 Respiratory Rate 20 09/05/18 11:52 Blood Pressure 139/101 H 09/05/18 11:52 O2 Sat by Pulse Oximetry (%) 99 09/05/18 09:00 Intake & Output 09/02/18 09/03/18 09/04/18 09/05/18 23:59 23:59 23:59 23:59 Intake Total 423 408 6603 550 Output Total 450 650 800 400 Balance -50 0 650 150 CBC, BMP 09/05/18 06:00 09/05/18 06:00 Current Medications Acetaminophen (Tylenol -) 650 mg PO Q6H PRN PRN Reason: FEVER Last Admin: 09/03/18 23:15 Dose: 650 mg Carvedilol (Coreg -) 12.5 mg PO BID [facility] Last Admin: 09/05/18 09:28 Dose: 12.5 mg Docusate Sodium (Colace -) 100 mg PO TID [facility] Last Admin: 09/05/18 05:49 Dose: 100 mg Heparin Sodium (Porcine) (Heparin -) 5,000 unit SQ BID [facility] IV Flush (Vu-Cath Flush) 10 ml IVPUSH PRN PRN PRN Reason: protocol, patency maintenance Last Admin: 09/02/18 06:16 Dose: 10 ml IV Flush (Vu-Cath Flush) 10 ml IVPUSH PRN PRN PRN Reason: FLUSH Last Admin: 09/02/18 18:50 Dose: 10 ml Metronidazole (Flagyl 500mg Premixed Ivpb -) 500 mg in 100 mls @ 100 mls/hr IVPB Q8H-IV AJ Last Admin: 09/05/18 09:21 Dose: 100 mls/hr Ceftriaxone Sodium 1 gm/ (Dextrose) 50 mls @ 200 mls/hr IVPB DAILY [facility]; Protocol Last Admin: 09/05/18 09:24 Dose: 200 mls/hr Miscellaneous (Duragesic Patch Waste) 1 each TD PRN PRN PRN Reason: PAIN Morphine Sulfate (Morphine Sulfate) 3 mg IVPB Q4H PRN PRN Reason: PAIN LEVEL 4 - 6 Last Admin: 09/05/18 09:26 Dose: 3 mg Pantoprazole Sodium (Protonix -) 40 mg PO DAILY [facility] Last Admin: 09/05/18 09:28 Dose: 40 mg Polyethylene Glycol (Miralax (For Daily Use) -) 17 gm PO DAILY [facility] Last Admin: 09/05/18 09:28 Dose: Not Given 48 year old gentleman with hx of Colon Ca on Chemo, Hypertension, CVA who presented with severe back pain and noted to develop ISMAEL during the hospital course. #Progressive worsening of renal function with decreasing urine output in setting of gram negative bactermiea/sepsis (urine Na very low indicating preserved tubular function, Urine Eos pending, no hydronephrosis seen on US) requiring HD #Anion gap metabolic acidosis #Gram negative bacteremia #Metastatic colon Ca Renal function improving, pt is non oliguric no further indication for [employer] [employer] trend renal function and electrolytes continue management per Oncology Sami Pulido DO
[2018-09-05] MEDS ORDERED: LIDOCAINE HCL 1%, 10 MG/ML (50 mL VIAL) NR ONE (12:43)
--- NOTE | 2018-09-05 14:39 | PROC ---
Incision and Drainage Indication/Location: incision and drainage of left calf abscess/ left calf adjacent to popliteal fossa Risks and Benefits Explained: Yes Consent on Chart: Yes Betadine cleansed: Yes Anesthesia: 1% Lidocaine Blade Size: 10 Irrigated with Normal Saline: Yes Iodinated Packin in Plain packing: No Sterile Dressing Applied: Yes - Remarks Remarks: inoculated with with local anesthesia. prepred and drapped. 2cm cruciate incision was made at the point of spontaneous perforation
--- NOTE | 2018-09-05 18:20 | PN ---
Teaching Attending Note Name of Resident: Mary Mendoza ATTENDING PHYSICIAN STATEMENT I saw and evaluated the patient. I reviewed the resident's note and discussed the case with the resident. I agree with the resident's findings and plan as documented. ASSESSMENT AND PLAN: 48 y/o with metastatic rectal cancer BRAF mutated/KRAS wild type/ MSIstable, with liver/lung mets, s/p surgery, ON FOLFOX/avastin, recent oxaliplatin neuropathy and had been on 5-FU/leucovorin/avastin, recent scans on 08/07 showing progressive disease, comes in with left leg severe pain of 1 week duration. MRI T/L spine show no cord compression Recurrent 6 cm pelvic mass encroaching sciatic foramen,liver mets, lung mets started RT to pelvic mass . 06/09 treatments Pain medication prior to RT Acute renal failure- s/p several sessions of dialysis. Now off dialysis renal function improving altered mental status -- ? pain meds ? infection morphine 3mg q4hrs. prn Lleg cellulitis--? collection s/p drainage on vancomycin planon ironotecan weekly dose based on clinical course d/c planning to rehab
[2018-09-05] MEDS: HEPARIN NA (PORCINE) 5,000 UNITS/ML 1ML VIAL SQ SCH (23:02)
[2018-09-06] MEDS: morphine SULFATE 4 MG/ML VIAL IVPB PRN ×2 (01:59→10:03)
[2018-09-06] MEDS: DOCUSATE SODIUM 100 MG CAPSULE (FP) PO SCH ×3 (05:00→22:00)
[2018-09-06] MEDS ORDERED: cefTRIAXone SODIUM 1 GM VIAL ONE (08:25)
[2018-09-06] MEDS ORDERED: DEXTROSE 5%-WATER - 50 ML IVPB ONE (08:25)
[2018-09-06] MEDS: PANTOPRAZOLE 40 MG TABLET (FP) PO SCH (09:53)
[2018-09-06] MEDS: HEPARIN NA (PORCINE) 5,000 UNITS/ML 1ML VIAL SQ SCH ×2 (09:54→22:02)
[2018-09-06] MEDS: POLYETHYLENE GLYCOL 3350 119 GM BTL PO SCH (09:54)
[2018-09-06] MEDS: CARVEDILOL 12.5 MG TABLET (FP) PO SCH ×2 (10:03→22:02)
[2018-09-06] MEDS ORDERED: LIDOCAINE HCL 1%, 10 MG/ML (20ML VIAL) ONE (10:48)
[2018-09-06] MEDS: CEFTRIAXONE 1 GM in DEXTROSE 5%-WATER - 50 ML IVPB SCH (11:16)
--- NOTE | 2018-09-06 11:32 | PN ---
Progress Note (short form) - Note Progress Note: off dialysis bedside drainage done for left calf abscess- pus obtained Vital Signs - 24 hr 09/05/18 09/05/18 09/05/18 17:03 21:00 22:00 Temperature 98.4 F 98.0 F Pulse Rate 83 85 Respiratory 18 18 Rate Blood Pressure 144/79 139/80 O2 Sat by Pulse 98 Oximetry (%) 09/06/18 09/06/18 09/06/18 05:54 08:55 09:00 Temperature 98.9 F 97.9 F Pulse Rate 84 84 Respiratory 18 18 18 Rate Blood Pressure 149/93 153/92 O2 Sat by Pulse 95 Oximetry (%) 09/06/18 13:27 Temperature 97.4 F L Pulse Rate 89 Respiratory 18 Rate Blood Pressure 138/95 O2 Sat by Pulse Oximetry (%) Current Medications Generic Name Dose Route Start Last Admin Trade Name Freq PRN Reason Stop Dose Admin Acetaminophen 650 mg 08/23/18 14:35 09/03/18 23:15 Tylenol - PO 650 mg Q6H PRN Administration FEVER Carvedilol 12.5 mg 08/16/18 22:00 09/06/18 10:03 Coreg - PO 12.5 mg BID AJ Administration Docusate Sodium 100 mg 08/16/18 22:00 09/06/18 15:03 Colace - PO Not Given TID AJ Heparin Sodium (Porcine) 5,000 unit 09/05/18 22:00 09/06/18 09:54 Heparin - SQ 5,000 unit BID AJ Administration IV Flush 10 ml 08/18/18 22:39 09/02/18 06:16 Vu-Cath Flush IVPUSH 10 ml PRN PRN Administration protocol, patency maintenance IV Flush 10 ml 08/22/18 13:46 09/02/18 18:50 Vu-Cath Flush IVPUSH 10 ml PRN PRN Administration FLUSH Metronidazole 500 mg in 100 mls @ 100 mls/hr 08/27/18 18:00 09/06/18 09:52 Flagyl 500mg Premixed Ivpb - IVPB 100 mls/hr Q8H-IV AJ Administration Ceftriaxone Sodium 1 gm/ 50 mls @ 200 mls/hr 09/04/18 10:00 09/06/18 11:16 Dextrose IVPB 200 mls/hr DAILY AJ Administration Protocol Miscellaneous 1 each 08/26/18 18:51 Duragesic Patch Waste TD PRN PRN PAIN Morphine Sulfate 3 mg 09/04/18 10:44 09/06/18 10:03 Morphine Sulfate IVPB 3 mg Q4H PRN Administration PAIN LEVEL 4 - 6 Pantoprazole Sodium 40 mg 08/17/18 10:00 09/06/18 09:53 Protonix - PO 40 mg DAILY AJ Administration Polyethylene Glycol 17 gm 08/19/18 10:00 09/06/18 09:54 Miralax (For Daily Use) - PO Not Given DAILY AJ S1 S2 RRR Anorexic Lungs decreased Abd - soft, NT, Colostomy functioning Ext- B/L leg edema, left arm edema, penile edema decreased- able to move left calf-- dressing PLAN pain control Surgical eval noted continue with current meds transfuse as needed Problem List - Problems (1) Intractable back pain Code(s): M54.9 - DORSALGIA, UNSPECIFIED (2) Metastatic colon cancer to liver Code(s): C18.9 - MALIGNANT NEOPLASM OF COLON, UNSPECIFIED; C78.7 - SECONDARY MALIG NEOPLASM OF LIVER AND INTRAHEPATIC BILE DUCT (3) Neuropathy Code(s): G62.9 - POLYNEUROPATHY, UNSPECIFIED (4) Sciatica of left side Code(s): M54.32 - SCIATICA, LEFT SIDE (5) Hypertension Code(s): I10 - ESSENTIAL (PRIMARY) HYPERTENSION
--- NOTE | 2018-09-06 12:37 | PN ---
Progress Note, Physician Chief Complaint: The patient seen and examined in his room. On bed. Denies any chest pains. Back pain comes and goes. Oral intake has improved. friend visiting. History of Present Illness: 48 yrs old male - colon Ca with mets to liver and lungs-s/p colostomy- now on chemotherapy- H/o Hypertension, Wt loss. Admitted with intractable back pain radiating to left lower extremity.Unable to move, sit up or stand due to pain Denies injuries. Maintains far amount of urine output. - Current Medication List Current Medications: Active Medications Acetaminophen (Tylenol -) 650 mg PO Q6H PRN PRN Reason: FEVER Last Admin: 09/03/18 23:15 Dose: 650 mg Carvedilol (Coreg -) 12.5 mg PO BID [facility] Last Admin: 09/06/18 10:03 Dose: 12.5 mg Docusate Sodium (Colace -) 100 mg PO TID [facility] Last Admin: 09/06/18 05:00 Dose: Not Given Heparin Sodium (Porcine) (Heparin -) 5,000 unit SQ BID [facility] Last Admin: 09/06/18 09:54 Dose: 5,000 unit IV Flush (Vu-Cath Flush) 10 ml IVPUSH PRN PRN PRN Reason: protocol, patency maintenance Last Admin: 09/02/18 06:16 Dose: 10 ml IV Flush (Vu-Cath Flush) 10 ml IVPUSH PRN PRN PRN Reason: FLUSH Last Admin: 09/02/18 18:50 Dose: 10 ml Metronidazole (Flagyl 500mg Premixed Ivpb -) 500 mg in 100 mls @ 100 mls/hr IVPB Q8H-IV AJ Last Admin: 09/06/18 09:52 Dose: 100 mls/hr Ceftriaxone Sodium 1 gm/ (Dextrose) 50 mls @ 200 mls/hr IVPB DAILY [facility]; Protocol Last Admin: 09/06/18 11:16 Dose: 200 mls/hr Miscellaneous (Duragesic Patch Waste) 1 each TD PRN PRN PRN Reason: PAIN Morphine Sulfate (Morphine Sulfate) 3 mg IVPB Q4H PRN PRN Reason: PAIN LEVEL 4 - 6 Last Admin: 09/06/18 10:03 Dose: 3 mg Pantoprazole Sodium (Protonix -) 40 mg PO DAILY [facility] Last Admin: 09/06/18 09:53 Dose: 40 mg Polyethylene Glycol (Miralax (For Daily Use) -) 17 gm PO DAILY AJ Last Admin: 09/06/18 09:54 Dose: Not Given - Objective Vital Signs: Vital Signs Temperature 97.9 F 09/06/18 08:55 Pulse Rate 84 09/06/18 08:55 Respiratory Rate 18 09/06/18 09:00 Blood Pressure 153/92 09/06/18 08:55 O2 Sat by Pulse Oximetry (%) 95 09/06/18 09:00 Constitutional: Yes: Anxious, Mild Distress HENT: Yes: Normocephalic Neck: Yes: Trachea Midline Cardiovascular: Yes: Regular Rate and Rhythm, S1, S2 Respiratory: Yes: CTA Bilaterally Gastrointestinal: Yes: Normal Bowel Sounds, Soft Genitourinary: No: Bladder Distention, CVA Tenderness - Left, CVA Tenderness - Right Musculoskeletal: Yes: Back Pain, Joint Stiffness, Muscle Pain, Muscle Weakness Labs: CBC, BMP 09/05/18 06:00 09/05/18 06:00 Assessment/Plan 48 yrs old male with h/o Ca colon with mets to liver and lungs-s/p colostomy- now on chemotherapy- admitted with intractable back pain radiating to left lower extremity for a couple of days The patient in severe pain. ISMAEL...most likely due to reduced Renal perfusion. The Renal functions are slowly improving. Will manintain adequate hydration, while monitoring the kidney functions closely. Thank you. Will follow with you. Arlene Cintron MD
[2018-09-07] MEDS: DOCUSATE SODIUM 100 MG CAPSULE (FP) PO SCH ×3 (05:30→22:09)
[2018-09-07] MEDS: ACETAMINOPHEN 325 MG TABLET (FP) PO PRN (06:03)
[2018-09-07] MEDS: CARVEDILOL 12.5 MG TABLET (FP) PO SCH ×3 (06:53→22:08)
[2018-09-07 07:24] LABS: BASO % 0.3 % (0-2.0); EOS % 0.3 % (0-4.5); HEMATOCRIT 26.3 % (35.4-49); HEMOGLOBIN 8.3 GM/dL (11.7-16.9); MCH 26.7 pg (25.7-33.7); MCHC 31.6 g/dl (32.0-35.9); MEAN CELL VOLUME 84.4 fl (80-96); MEAN PLT VOLUME 7.8 fl (7.5-11.1); MONO % 8.8 % (3.8-10.2); NEUT % 85.6 % (42.8-82.8); PLATELET COUNT 282 K/MM3 (134-434); RBC 3.12 M/mm3 (4.00-5.60); RDW 18.2 % (11.9-15.9)
[2018-09-07] MEDS ORDERED: DEXTROSE 5%-WATER - 50 ML IVPB ONE (08:06)
[2018-09-07] MEDS ORDERED: cefTRIAXone SODIUM 1 GM VIAL ONE (08:06)
[2018-09-07 08:27] LABS: ALBUMIN 1.1 g/dl (3.4-5.0); ALK PHOS 594 U/L (45-117); ANION GAP 9 MMOL/L (8-16); BILIRUBIN,TOTAL 0.8 mg/dL (0.2-1); BLOOD UREA NITROGEN 48 mg/dL (7-18); CALCIUM 7.2 mg/dL (8.5-10.1); CHLORIDE 107 mmol/L (98-107); CO2 26 mmol/L (21-32); CREATININE 2.2 mg/dL (0.55-1.3); GLUCOSE,RANDOM 89 mg/dL (74-106); POTASSIUM 4.5 mmol/L (3.5-5.1); SGOT/AST 53 U/L (15-37); SGPT/ALT 10 U/L (13-61); SODIUM 142 mmol/L (136-145); TOT PROT 4.4 g/dl (6.4-8.2)
--- NOTE | 2018-09-07 08:32 | PN ---
Progress Note (short form) - Note Progress Note: feels well decreased pain did not ask for pain meds since last night per RN Vital Signs - 24 hr 09/06/18 09/06/18 09/06/18 18:00 21:00 22:00 Temperature 99.7 F H 98.7 F Pulse Rate 91 H 88 Respiratory 18 18 Rate Blood Pressure 144/101 H 140/89 O2 Sat by Pulse 96 Oximetry (%) 09/07/18 09/07/18 09/07/18 08:34 09:00 14:59 Temperature 98.4 F 98.8 F Pulse Rate 81 88 Respiratory 18 20 Rate Blood Pressure 131/89 141/97 O2 Sat by Pulse 100 Oximetry (%) Current Medications Generic Name Dose Route Start Last Admin Trade Name Freq PRN Reason Stop Dose Admin Acetaminophen 650 mg 08/23/18 14:35 09/07/18 06:03 Tylenol - PO 650 mg Q6H PRN Administration FEVER Carvedilol 12.5 mg 08/16/18 22:00 09/07/18 09:25 Coreg - PO Not Given BID AJ Docusate Sodium 100 mg 08/16/18 22:00 09/07/18 16:20 Colace - PO Not Given TID AJ Heparin Sodium (Porcine) 5,000 unit 09/05/18 22:00 09/07/18 09:23 Heparin - SQ 5,000 unit BID AJ Administration IV Flush 10 ml 08/18/18 22:39 09/02/18 06:16 Vu-Cath Flush IVPUSH 10 ml PRN PRN Administration protocol, patency maintenance IV Flush 10 ml 08/22/18 13:46 09/02/18 18:50 Vu-Cath Flush IVPUSH 10 ml PRN PRN Administration FLUSH Metronidazole 500 mg in 100 mls @ 100 mls/hr 08/27/18 18:00 09/07/18 09:24 Flagyl 500mg Premixed Ivpb - IVPB 100 mls/hr Q8H-IV AJ Administration Ceftriaxone Sodium 1 gm/ 50 mls @ 200 mls/hr 09/04/18 10:00 09/07/18 10:23 Dextrose IVPB 200 mls/hr DAILY AJ Administration Protocol Miscellaneous 1 each 08/26/18 18:51 Duragesic Patch Waste TD PRN PRN PAIN Morphine Sulfate 3 mg 09/04/18 10:44 09/06/18 10:03 Morphine Sulfate IVPB 3 mg Q4H PRN Administration PAIN LEVEL 4 - 6 Pantoprazole Sodium 40 mg 08/17/18 10:00 09/07/18 09:25 Protonix - PO 40 mg DAILY AJ Administration Polyethylene Glycol 17 gm 08/19/18 10:00 09/07/18 09:25 Miralax (For Daily Use) - PO Not Given DAILY AJ Abnormal Lab Results 09/07/18 09/07/18 06:00 06:00 WBC 13.0 H RBC 3.12 L Hgb 8.3 L Hct 26.3 L MCHC 31.6 L RDW 18.2 H Absolute Neuts (auto) 11.1 H Neutrophils % 85.6 H Neutrophils % (Manual) 88.9 H Lymphocytes % 5.0 L D Lymphocytes % (Manual) 0.0 L BUN 48 H Creatinine 2.2 H Calcium 7.2 L AST 53 H ALT 10 L Alkaline Phosphatase 594 H Total Protein 4.4 L Albumin 1.1 L Laboratory Results - last 24 hr 09/07/18 09/07/18 06:00 06:00 WBC 13.0 H RBC 3.12 L Hgb 8.3 L Hct 26.3 L MCV 84.4 MCH 26.7 MCHC 31.6 L RDW 18.2 H Plt Count 282 MPV 7.8 Absolute Neuts (auto) 11.1 H Neutrophils % 85.6 H Neutrophils % (Manual) 88.9 H Band Neutrophils % 3.0 Lymphocytes % 5.0 L D Lymphocytes % (Manual) 0.0 L Monocytes % 8.8 Monocytes % (Manual) 5 Eosinophils % 0.3 Eosinophils % (Manual) 0.0 Basophils % 0.3 Basophils % (Manual) 1.0 D Myelocytes % (Man) 0 D Promyelocytes % (Man) 0 Blast Cells % (Manual) 0 Nucleated RBC % 0 Metamyelocytes 1 Hypochromia 0 Platelet Estimate Normal Polychromasia 1+ Poikilocytosis 0 Anisocytosis 2+ Microcytosis 1+ Macrocytosis 0 Spherocytes 1+ Tear Drop Cells 1+ [place] Cells 1+ Sodium 142 Potassium 4.5 Chloride 107 Carbon Dioxide 26 Anion Gap 9 BUN 48 H Creatinine 2.2 H Creat Clearance w eGFR 31.97 Random Glucose 89 Calcium 7.2 L Total Bilirubin 0.8 AST 53 H ALT 10 L Alkaline Phosphatase 594 H Total Protein 4.4 L Albumin 1.1 L S1 S2 RRR Anorexic Lungs decreased Abd - soft, NT, Colostomy functioning Ext- B/L leg edema, left arm edema, penile edema decreased- able to move left calf-- dressing PLAN pain control prn PT eval last radiation therapy tomorrow continue with current meds transfuse as needed Problem List - Problems (1) Intractable back pain Code(s): M54.9 - DORSALGIA, UNSPECIFIED (2) Metastatic colon cancer to liver Code(s): C18.9 - MALIGNANT NEOPLASM OF COLON, UNSPECIFIED; C78.7 - SECONDARY MALIG NEOPLASM OF LIVER AND INTRAHEPATIC BILE DUCT (3) Neuropathy Code(s): G62.9 - POLYNEUROPATHY, UNSPECIFIED (4) Sciatica of left side Code(s): M54.32 - SCIATICA, LEFT SIDE (5) Hypertension Code(s): I10 - ESSENTIAL (PRIMARY) HYPERTENSION
[2018-09-07] MEDS: HEPARIN NA (PORCINE) 5,000 UNITS/ML 1ML VIAL SQ SCH ×2 (09:23→22:08)
[2018-09-07] MEDS: POLYETHYLENE GLYCOL 3350 119 GM BTL PO SCH (09:25)
[2018-09-07] MEDS: PANTOPRAZOLE 40 MG TABLET (FP) PO SCH (09:25)
[2018-09-07] MEDS: CEFTRIAXONE 1 GM in DEXTROSE 5%-WATER - 50 ML IVPB SCH (10:23)
--- NOTE | 2018-09-07 12:09 | PN ---
Progress Note, Physician Chief Complaint: The patient seen and examined in his room. On bed. Severe back pain. Denies any chest pains. Maintains good urine output. History of Present Illness: 48 yrs old male - colon Ca with mets to liver and lungs-s/p colostomy- now on chemotherapy- H/o Hypertension, Wt loss. Admitted with intractable back pain radiating to left lower extremity.Unable to move, sit up or stand due to pain Denies injuries. Maintains far amount of urine output. Renal functions fairly stable. - Current Medication List Current Medications: Active Medications Acetaminophen (Tylenol -) 650 mg PO Q6H PRN PRN Reason: FEVER Last Admin: 09/07/18 06:03 Dose: 650 mg Carvedilol (Coreg -) 12.5 mg PO BID [facility] Last Admin: 09/07/18 09:25 Dose: Not Given Docusate Sodium (Colace -) 100 mg PO TID [facility] Last Admin: 09/07/18 05:30 Dose: Not Given Heparin Sodium (Porcine) (Heparin -) 5,000 unit SQ BID [facility] Last Admin: 09/07/18 09:23 Dose: 5,000 unit IV Flush (Vu-Cath Flush) 10 ml IVPUSH PRN PRN PRN Reason: protocol, patency maintenance Last Admin: 09/02/18 06:16 Dose: 10 ml IV Flush (Vu-Cath Flush) 10 ml IVPUSH PRN PRN PRN Reason: FLUSH Last Admin: 09/02/18 18:50 Dose: 10 ml Metronidazole (Flagyl 500mg Premixed Ivpb -) 500 mg in 100 mls @ 100 mls/hr IVPB Q8H-IV AJ Last Admin: 09/07/18 09:24 Dose: 100 mls/hr Ceftriaxone Sodium 1 gm/ (Dextrose) 50 mls @ 200 mls/hr IVPB DAILY [facility]; Protocol Last Admin: 09/07/18 10:23 Dose: 200 mls/hr Miscellaneous (Duragesic Patch Waste) 1 each TD PRN PRN PRN Reason: PAIN Morphine Sulfate (Morphine Sulfate) 3 mg IVPB Q4H PRN PRN Reason: PAIN LEVEL 4 - 6 Last Admin: 09/06/18 10:03 Dose: 3 mg Pantoprazole Sodium (Protonix -) 40 mg PO DAILY [facility] Last Admin: 09/07/18 09:25 Dose: 40 mg Polyethylene Glycol (Miralax (For Daily Use) -) 17 gm PO DAILY AJ Last Admin: 09/07/18 09:25 Dose: Not Given - Objective Vital Signs: Vital Signs Temperature 98.4 F 09/07/18 08:34 Pulse Rate 81 09/07/18 08:34 Respiratory Rate 18 09/07/18 08:34 Blood Pressure 131/89 09/07/18 08:34 O2 Sat by Pulse Oximetry (%) 100 09/07/18 09:00 Constitutional: Yes: Anxious Eyes: Yes: Conjunctiva Clear HENT: Yes: Normocephalic Neck: Yes: Trachea Midline Cardiovascular: Yes: Regular Rate and Rhythm, Tachycardia, S1, S2 Respiratory: Yes: CTA Bilaterally Gastrointestinal: Yes: Normal Bowel Sounds, Soft Musculoskeletal: Yes: Back Pain, Joint Stiffness, Muscle Pain Neurological: Yes: Alert Psychiatric: Yes: Alert, Oriented Labs: CBC, BMP 09/07/18 06:00 09/07/18 06:00 Assessment/Plan 48 yrs old male with h/o Ca colon with mets to liver and lungs-s/p colostomy- now on chemotherapy- admitted with intractable back pain radiating to left lower extremity. The patient in severe pain. ISMAEL...most likely due to reduced Renal perfusion. The Renal functions are slowly improving. Will manintain adequate hydration, while monitoring the kidney functions closely. Thank you. Will follow with you. Arlene Cintron MD
[2018-09-07 12:36] LABS: ANISOCYTOSIS 2+; MACROCYTOSIS 0; PLATELET ESTIMATE NORMAL; TEAR DROP CELLS 1+
--- NOTE | 2018-09-07 21:13 | PN ---
Progress Note, Physician Chief Complaint: left calf abscess History of Present Illness: 48yo PMH significant for metastatic rectal cancer BRAF mutated/KRAS wild type/ MSIstable, with liver/lung mets, noted to have spontaneous drainge of left calf abscess. stable post procedure. - Current Medication List Current Medications: Active Medications Acetaminophen (Tylenol -) 650 mg PO Q6H PRN PRN Reason: FEVER Last Admin: 09/07/18 06:03 Dose: 650 mg Carvedilol (Coreg -) 12.5 mg PO BID [facility] Last Admin: 09/07/18 09:25 Dose: Not Given Docusate Sodium (Colace -) 100 mg PO TID [facility] Last Admin: 09/07/18 16:20 Dose: Not Given Heparin Sodium (Porcine) (Heparin -) 5,000 unit SQ BID [facility] Last Admin: 09/07/18 09:23 Dose: 5,000 unit IV Flush (Vu-Cath Flush) 10 ml IVPUSH PRN PRN PRN Reason: protocol, patency maintenance Last Admin: 09/02/18 06:16 Dose: 10 ml IV Flush (Vu-Cath Flush) 10 ml IVPUSH PRN PRN PRN Reason: FLUSH Last Admin: 09/02/18 18:50 Dose: 10 ml Metronidazole (Flagyl 500mg Premixed Ivpb -) 500 mg in 100 mls @ 100 mls/hr IVPB Q8H-IV AJ Last Admin: 09/07/18 17:06 Dose: 100 mls/hr Ceftriaxone Sodium 1 gm/ (Dextrose) 50 mls @ 200 mls/hr IVPB DAILY [facility]; Protocol Last Admin: 09/07/18 10:23 Dose: 200 mls/hr Miscellaneous (Duragesic Patch Waste) 1 each TD PRN PRN PRN Reason: PAIN Morphine Sulfate (Morphine Sulfate) 3 mg IVPB Q4H PRN PRN Reason: PAIN LEVEL 4 - 6 Last Admin: 09/06/18 10:03 Dose: 3 mg Pantoprazole Sodium (Protonix -) 40 mg PO DAILY [facility] Last Admin: 09/07/18 09:25 Dose: 40 mg Polyethylene Glycol (Miralax (For Daily Use) -) 17 gm PO DAILY [facility] Last Admin: 09/07/18 09:25 Dose: Not Given - Objective Vital Signs: Vital Signs Temperature 99.5 F 09/07/18 19:08 Pulse Rate 89 09/07/18 19:08 Respiratory Rate 20 09/07/18 19:08 Blood Pressure 138/95 09/07/18 19:08 O2 Sat by Pulse Oximetry (%) 100 09/07/18 09:00 Constitutional: Yes: Well Nourished, No Distress, Calm Eyes: Yes: Conjunctiva Clear, EOM Intact HENT: Yes: Atraumatic, Normocephalic Neck: Yes: Supple, Trachea Midline, Tenderness Cardiovascular: Yes: S1, S2 Respiratory: Yes: Regular, CTA Bilaterally Gastrointestinal: Yes: Normal Bowel Sounds, Soft. No: Tenderness ...Rectal Exam: Yes: Deferred Genitourinary: No: CVA Tenderness - Left, CVA Tenderness - Right Musculoskeletal: No: Muscle Pain, Muscle Weakness Extremities: Yes: Calf Tenderness, Erythema. No: Cool, Cyanosis Edema: Yes Edema: LLE: 3+ Peripheral Pulses WNL: Yes Peripheral Pulses: Left Radial: 2+, Right Radial: 2+, Left Doralis Pedis: 2+, Right Dorsalis Pedis: 2+ Integumentary: No: Jaundice, Rash Wound/Incision: Yes: Clean/Dry, Dressing Dry and Intact, Dressing Removed, Draining, Unapproximated Neurological: Yes: Alert, Oriented Psychiatric: Yes: Alert, Oriented Labs: CBC, BMP 09/07/18 06:00 09/07/18 06:00 Problem List - Problems (1) Calf abscess Assessment/Plan: 48 yo male MMP with large posterior calf abscess. s/p I&D of left calf abscess. Microbiology 09/06/18 11:17 Calf - Left Anterior Gram Stain - Final 09/06/18 11:17 Calf - Left Anterior Wound Culture - Final NO GROWTH AFTER 48 HOURS INCUBATION 09/05/18 15:08 Calf - Left Posterior Gram Stain - Final 09/05/18 15:08 Calf - Left Posterior Wound Culture - Final NO GROWTH AFTER 48 HOURS INCUBATION 09/04/18 00:03 Wound Gram Stain - Final 09/04/18 00:03 Wound Wound Culture - Final Escherichia Fergusonii IV antibiotics per ID Leg elevation local wound care f/u culture Will follow Code(s): L02.419 - CUTANEOUS ABSCESS OF LIMB, UNSPECIFIED (2) Intractable back pain Code(s): M54.9 - DORSALGIA, UNSPECIFIED (3) Metastatic colon cancer to liver Code(s): C18.9 - MALIGNANT NEOPLASM OF COLON, UNSPECIFIED; C78.7 - SECONDARY MALIG NEOPLASM OF LIVER AND INTRAHEPATIC BILE DUCT (4) Sciatica of left side Code(s): M54.32 - SCIATICA, LEFT SIDE (5) CVA (cerebral vascular accident) Code(s): I63.9 - CEREBRAL INFARCTION, UNSPECIFIED (6) Hypertension Code(s): I10 - ESSENTIAL (PRIMARY) HYPERTENSION
[2018-09-08] MEDS: DOCUSATE SODIUM 100 MG CAPSULE (FP) PO SCH ×3 (05:07→21:51)
[2018-09-08] MEDS: CARVEDILOL 12.5 MG TABLET (FP) PO SCH ×3 (06:20→21:52)
[2018-09-08 06:29] LABS: HEMATOCRIT 24.5 % (35.4-49); MCH 27.3 pg (25.7-33.7); MCHC 32.5 g/dl (32.0-35.9); MEAN CELL VOLUME 83.9 fl (80-96); MEAN PLT VOLUME 7.8 fl (7.5-11.1); PLATELET COUNT 269 K/MM3 (134-434); RBC 2.92 M/mm3 (4.00-5.60); RDW 18.3 % (11.9-15.9); WHITE BLOOD COUNT 14.9 K/mm3 (4.0-10.0)
[2018-09-08 06:56] LABS: ANION GAP 7 MMOL/L (8-16); BLOOD UREA NITROGEN 41 mg/dL (7-18); CALCIUM 7.1 mg/dL (8.5-10.1); CHLORIDE 107 mmol/L (98-107); CO2 27 mmol/L (21-32); CREATININE 1.9 mg/dL (0.55-1.3); GLUCOSE,RANDOM 87 mg/dL (74-106); SODIUM 141 mmol/L (136-145)
[2018-09-08] MEDS ORDERED: DEXTROSE 5%-WATER - 50 ML IVPB ONE (09:38)
[2018-09-08] MEDS ORDERED: cefTRIAXone SODIUM 1 GM VIAL ONE (09:38)
[2018-09-08] MEDS: CEFTRIAXONE 1 GM in DEXTROSE 5%-WATER - 50 ML IVPB SCH (09:43)
[2018-09-08] MEDS: PANTOPRAZOLE 40 MG TABLET (FP) PO SCH (09:44)
[2018-09-08] MEDS: HEPARIN NA (PORCINE) 5,000 UNITS/ML 1ML VIAL SQ SCH ×2 (09:44→21:52)
[2018-09-08] MEDS: POLYETHYLENE GLYCOL 3350 119 GM BTL PO SCH (09:45)
[2018-09-08] MEDS: morphine SULFATE 4 MG/ML VIAL IVPB PRN (09:50)
[2018-09-08] MEDS ORDERED: MORPHINE SULFATE 2 MG/ML VIAL IVPUSH ONE (11:07)
--- NOTE | 2018-09-08 12:01 | PN ---
Progress Note (short form) - Note Progress Note: Comfortable no complains pain ok all f/u noted Vital Signs Temp 98.9 F 09/08/18 09:58 Pulse 83 09/08/18 09:58 Resp 20 09/08/18 09:58 BP 142/88 09/08/18 09:58 Pulse Ox 99 09/07/18 21:00 Intake & Output 09/07/18 09/08/18 09/08/18 23:59 11:59 23:59 Intake Total 800 300 Output Total 1600 1400 Balance -800 -1100 Intake: IVPB 250 100 Oral 550 200 Output: Urine 1600 1400 Mancia 1600 1400 Other: Voiding Method Indwelling Catheter Indwelling Catheter Bowel Movement Yes Active Medications Acetaminophen (Tylenol -) 650 mg PO Q6H PRN PRN Reason: FEVER Last Admin: 09/07/18 06:03 Dose: 650 mg Carvedilol (Coreg -) 12.5 mg PO BID [facility] Last Admin: 09/08/18 09:45 Dose: Not Given Docusate Sodium (Colace -) 100 mg PO TID [facility] Last Admin: 09/08/18 05:07 Dose: Not Given Heparin Sodium (Porcine) (Heparin -) 5,000 unit SQ BID [facility] Last Admin: 09/08/18 09:44 Dose: 5,000 unit IV Flush (Vu-Cath Flush) 10 ml IVPUSH PRN PRN PRN Reason: protocol, patency maintenance Last Admin: 09/02/18 06:16 Dose: 10 ml IV Flush (Vu-Cath Flush) 10 ml IVPUSH PRN PRN PRN Reason: FLUSH Last Admin: 09/02/18 18:50 Dose: 10 ml Metronidazole (Flagyl 500mg Premixed Ivpb -) 500 mg in 100 mls @ 100 mls/hr IVPB Q8H-IV AJ Last Admin: 09/08/18 09:43 Dose: 100 mls/hr Ceftriaxone Sodium 1 gm/ (Dextrose) 50 mls @ 200 mls/hr IVPB DAILY [facility]; Protocol Last Admin: 09/08/18 09:43 Dose: 200 mls/hr Miscellaneous (Duragesic Patch Waste) 1 each TD PRN PRN PRN Reason: PAIN Pantoprazole Sodium (Protonix -) 40 mg PO DAILY [facility] Last Admin: 09/08/18 09:44 Dose: 40 mg Polyethylene Glycol (Miralax (For Daily Use) -) 17 gm PO DAILY AJ Last Admin: 09/08/18 09:45 Dose: Not Given CBC, BMP 09/08/18 05:30 09/08/18 05:30 Microbiology 09/06/18 11:17 Gram Stain - Final Calf - Left Anterior Wound Culture - Final NO GROWTH AFTER 48 HOURS INCUBATION 09/05/18 15:08 Gram Stain - Final Calf - Left Posterior Wound Culture - Final NO GROWTH AFTER 48 HOURS INCUBATION 09/04/18 00:03 Gram Stain - Final Wound Wound Culture - Final Escherichia Fergusonii Physical Exam Awake/ comfortable S1 S2 RRR Lungs decreased at bases Abd - soft, NT, Colostomy functioning Ext- left lower extremity - dressing + PLAN better continue present care abx dialysis per renal-- off dialysis now RT -- finished today PT surgery on case will follow discussed with nursing staff Problem List - Problems (1) Neuropathy Code(s): G62.9 - POLYNEUROPATHY, UNSPECIFIED (2) Sciatica of left side Code(s): M54.32 - SCIATICA, LEFT SIDE (3) Adenocarcinoma Code(s): C80.1 - MALIGNANT (PRIMARY) NEOPLASM, UNSPECIFIED (4) Hypertension Code(s): I10 - ESSENTIAL (PRIMARY) HYPERTENSION (5) Old cerebrovascular accident (CVA) without late effect Code(s): Z86.73 - PRSNL HX OF TIA (TIA), AND CEREB INFRC W/O RESID DEFICITS
--- NOTE | 2018-09-08 14:24 | PN ---
Progress Note (short form) - Note Progress Note: PROGRESS NOTE FOR HEMATOLOGY/ONCOLOGY Patient seen and examined by me at bedside. Patient much more awake and alert. Reports his leg pain has improved significantly. Patient completed 07/09 RT Otherwise, denies any fever, chills, nausea, vomiting, abdominal pain, chest pain, palpitations, shortness of breath Vital Signs Temperature 98.9 F 09/08/18 09:58 Pulse Rate 83 09/08/18 09:58 Respiratory Rate 20 09/08/18 09:58 Blood Pressure 142/88 09/08/18 09:58 O2 Sat by Pulse Oximetry (%) 99 09/07/18 21:00 PHYSICAL EXAMINATION GENERAL: Awake, alert, oriented, no acute distress EYES: conjunctiva clear. ENT: Moist mucous membranes LUNGS: Diminished breath sounds bilaterally with no crackles or wheezes HEART: RRR, normal S1 and S2 ABDOMEN: Soft, nontender, not distended, normoactive bowel sounds. Colostomy bag in place EXTREMITIES: 3+ Edema in UE and LE . C/D/I dressing of left leg. Laboratory Tests 09/08/18 05:30 09/08/18 05:30 ASSESSMENT AND PLAN: Patient is a 48 year old male with metastatic rectal cancer with mets to the liver and lungs on 5-FU/Leucovorin who presented with severe left leg pain for > 1 weeks. Patient found to have sepsis and admitted for further monitoring and management. Problem List: Metastatic Rectal Cancer with perirectal mass extending through sciatic notch and into piriformis muscle. HTN ISMAEL on CKD Anemia of chronic disease Tumor fevers Left Calf Abscess PLAN: -Patient completed 07/09 RT and reports significant relief of pain. -Continue Pain medications -Patient s/p drainage of left leg cellulitis/abscess -Would cultures revealed E. Fergusonii -Continue antibiotics, as per ID -Kidney function improving. Monitor off dialysis -Transfuse PRBC PRN -Plan for ironotecan weekly dose likely starting Saturday (09/10/18)
--- NOTE | 2018-09-08 17:41 | PN ---
Progress Note, Physician History of Present Illness: Awake and alert. Conversant. S/P I&D LE Afebrile Wound c/s E fergusonii - Current Medication List Current Medications: Active Medications Acetaminophen (Tylenol -) 650 mg PO Q6H PRN PRN Reason: FEVER Last Admin: 09/07/18 06:03 Dose: 650 mg Carvedilol (Coreg -) 12.5 mg PO BID [facility] Last Admin: 09/08/18 09:45 Dose: Not Given Docusate Sodium (Colace -) 100 mg PO TID [facility] Last Admin: 09/08/18 13:17 Dose: Not Given Heparin Sodium (Porcine) (Heparin -) 5,000 unit SQ BID [facility] Last Admin: 09/08/18 09:44 Dose: 5,000 unit IV Flush (Vu-Cath Flush) 10 ml IVPUSH PRN PRN PRN Reason: protocol, patency maintenance Last Admin: 09/02/18 06:16 Dose: 10 ml IV Flush (Vu-Cath Flush) 10 ml IVPUSH PRN PRN PRN Reason: FLUSH Last Admin: 09/02/18 18:50 Dose: 10 ml Metronidazole (Flagyl 500mg Premixed Ivpb -) 500 mg in 100 mls @ 100 mls/hr IVPB Q8H-IV AJ Last Admin: 09/08/18 09:43 Dose: 100 mls/hr Ceftriaxone Sodium 1 gm/ (Dextrose) 50 mls @ 200 mls/hr IVPB DAILY [facility]; Protocol Last Admin: 09/08/18 09:43 Dose: 200 mls/hr Miscellaneous (Duragesic Patch Waste) 1 each TD PRN PRN PRN Reason: PAIN Pantoprazole Sodium (Protonix -) 40 mg PO DAILY [facility] Last Admin: 09/08/18 09:44 Dose: 40 mg Polyethylene Glycol (Miralax (For Daily Use) -) 17 gm PO DAILY [facility] Last Admin: 09/08/18 09:45 Dose: Not Given - Objective Vital Signs: Vital Signs Temperature 98.6 F 09/08/18 17:33 Pulse Rate 84 09/08/18 17:33 Respiratory Rate 20 09/08/18 17:33 Blood Pressure 140/91 09/08/18 17:33 O2 Sat by Pulse Oximetry (%) 100 09/08/18 09:00 Constitutional: Yes: No Distress Eyes: Yes: Conjunctiva Clear Cardiovascular: Yes: Regular Rate and Rhythm, S1, S2 Respiratory: Yes: CTA Bilaterally Gastrointestinal: Yes: Soft Extremities: Yes: Other (dressing in place, LE) Labs: CBC, BMP 09/08/18 05:30 09/08/18 05:30 Assessment/Plan Soft tissue abscess L calf s/p I&D Anaerobic bactermia, likely GI source Recurrent fever resolved Metastatic ca Renal failure Ceftriaxone / flagyl
--- NOTE | 2018-09-08 18:29 | PN ---
Progress Note (short form) - Note Progress Note: Renal follow up for ISMAEL Pt seen and examined at the bedside no acute complaints making urine no sob, cp, abd pain Vital Signs Temperature 98.6 F 09/08/18 17:33 Pulse Rate 84 09/08/18 17:33 Respiratory Rate 20 09/08/18 17:33 Blood Pressure 140/91 09/08/18 17:33 O2 Sat by Pulse Oximetry (%) 100 09/08/18 09:00 Intake & Output 09/05/18 09/06/18 09/07/18 09/08/18 23:59 23:59 23:59 23:59 Intake Total 501 120 4119 900 Output Total 1050 1700 2350 1800 Balance -250 -850 -1250 -900 NAD awake and alert + edema in LE CBC, BMP 09/08/18 05:30 09/08/18 05:30 Current Medications Acetaminophen (Tylenol -) 650 mg PO Q6H PRN PRN Reason: FEVER Last Admin: 09/07/18 06:03 Dose: 650 mg Carvedilol (Coreg -) 12.5 mg PO BID [facility] Last Admin: 09/08/18 09:45 Dose: Not Given Docusate Sodium (Colace -) 100 mg PO TID [facility] Last Admin: 09/08/18 13:17 Dose: Not Given Heparin Sodium (Porcine) (Heparin -) 5,000 unit SQ BID [facility] Last Admin: 09/08/18 09:44 Dose: 5,000 unit IV Flush (Vu-Cath Flush) 10 ml IVPUSH PRN PRN PRN Reason: protocol, patency maintenance Last Admin: 09/02/18 06:16 Dose: 10 ml IV Flush (Vu-Cath Flush) 10 ml IVPUSH PRN PRN PRN Reason: FLUSH Last Admin: 09/02/18 18:50 Dose: 10 ml Metronidazole (Flagyl 500mg Premixed Ivpb -) 500 mg in 100 mls @ 100 mls/hr IVPB Q8H-IV AJ Last Admin: 09/08/18 17:40 Dose: 100 mls/hr Ceftriaxone Sodium 1 gm/ (Dextrose) 50 mls @ 200 mls/hr IVPB DAILY [facility]; Protocol Last Admin: 09/08/18 09:43 Dose: 200 mls/hr Miscellaneous (Duragesic Patch Waste) 1 each TD PRN PRN PRN Reason: PAIN Pantoprazole Sodium (Protonix -) 40 mg PO DAILY [facility] Last Admin: 09/08/18 09:44 Dose: 40 mg Polyethylene Glycol (Miralax (For Daily Use) -) 17 gm PO DAILY [facility] Last Admin: 09/08/18 09:45 Dose: Not Given 48 year old gentleman with hx of Colon Ca on Chemo, Hypertension, CVA who presented with severe back pain and noted to develop ISMAEL during the hospital course. #Progressive worsening of renal function with decreasing urine output in setting of gram negative bactermiea/sepsis (urine Na very low indicating preserved tubular function, Urine Eos pending, no hydronephrosis seen on US) requiring HD #Anion gap metabolic acidosis #Gram negative bacteremia #Metastatic colon Ca Renal function continuing to improve No further indication for CRUISE COUNSELOR Mancia remains in place, can consider removing it in the am Sami Pulido DO
[2018-09-09] MEDS: DOCUSATE SODIUM 100 MG CAPSULE (FP) PO SCH ×3 (06:11→21:23)
--- NOTE | 2018-09-09 08:52 | PN ---
Progress Note (short form) - Note Progress Note: Radiation Oncology Completed palliative RT (30Gy) to pelvic mass. No signficant adverse toxicity. Pain control improved. Palliative care. Supportive care.
--- NOTE | 2018-09-09 09:25 | PN ---
Progress Note (short form) - Note Progress Note: awake/ comfortable denies pain afebrile Vital Signs Temp 98.1 F 09/09/18 06:22 Pulse 76 09/09/18 06:22 Resp 20 09/09/18 06:22 BP 148/96 09/09/18 06:22 Pulse Ox 100 09/08/18 21:00 Intake & Output 09/08/18 09/08/18 09/09/18 11:59 23:59 11:59 Intake Total 300 600 0 Output Total 1600 1050 600 Balance -1300 -450 -600 Intake: IV 0 0 saline lock 0 0 IVPB 100 150 Oral 200 450 Output: Urine 1600 1050 600 Mancia 1600 1050 600 Other: Voiding Method Indwelling Catheter Indwelling Catheter Indwelling Catheter Bowel Movement Yes # Bowel Movements 1 Active Medications Acetaminophen (Tylenol -) 650 mg PO Q6H PRN PRN Reason: FEVER Last Admin: 09/07/18 06:03 Dose: 650 mg Carvedilol (Coreg -) 12.5 mg PO BID [facility] Last Admin: 09/08/18 21:52 Dose: 12.5 mg Docusate Sodium (Colace -) 100 mg PO TID [facility] Last Admin: 09/09/18 06:11 Dose: 100 mg Heparin Sodium (Porcine) (Heparin -) 5,000 unit SQ BID [facility] Last Admin: 09/08/18 21:52 Dose: 5,000 unit IV Flush (Vu-Cath Flush) 10 ml IVPUSH PRN PRN PRN Reason: protocol, patency maintenance Last Admin: 09/02/18 06:16 Dose: 10 ml IV Flush (Vu-Cath Flush) 10 ml IVPUSH PRN PRN PRN Reason: FLUSH Last Admin: 09/02/18 18:50 Dose: 10 ml Metronidazole (Flagyl 500mg Premixed Ivpb -) 500 mg in 100 mls @ 100 mls/hr IVPB Q8H-IV AJ Last Admin: 09/09/18 02:45 Dose: 100 mls/hr Ceftriaxone Sodium 1 gm/ (Dextrose) 50 mls @ 200 mls/hr IVPB DAILY [facility]; Protocol Last Admin: 09/08/18 09:43 Dose: 200 mls/hr Miscellaneous (Duragesic Patch Waste) 1 each TD PRN PRN PRN Reason: PAIN Pantoprazole Sodium (Protonix -) 40 mg PO DAILY [facility] Last Admin: 09/08/18 09:44 Dose: 40 mg Polyethylene Glycol (Miralax (For Daily Use) -) 17 gm PO DAILY [facility] Last Admin: 09/08/18 09:45 Dose: Not Given CBC, BMP 09/08/18 05:30 09/08/18 05:30 Microbiology 09/06/18 11:17 Gram Stain - Final Calf - Left Anterior Wound Culture - Final NO GROWTH AFTER 48 HOURS INCUBATION 09/05/18 15:08 Gram Stain - Final Calf - Left Posterior Wound Culture - Final NO GROWTH AFTER 48 HOURS INCUBATION 09/04/18 00:03 Gram Stain - Final Wound Wound Culture - Final Escherichia Fergusonii Physical Exam Awake/ comfortable S1 S2 RRR Lungs decreased at bases Abd - soft, NT, Colostomy functioning Ext- left lower extremity - dressing + PLAN better continue present care abx per i/d off dialysis now RT finished PT- daily oob - chair surgery also on case will follow discussed with nursing staff also Problem List - Problems (1) Neuropathy Code(s): G62.9 - POLYNEUROPATHY, UNSPECIFIED (2) Sciatica of left side Code(s): M54.32 - SCIATICA, LEFT SIDE (3) Adenocarcinoma Code(s): C80.1 - MALIGNANT (PRIMARY) NEOPLASM, UNSPECIFIED (4) Hypertension Code(s): I10 - ESSENTIAL (PRIMARY) HYPERTENSION (5) Old cerebrovascular accident (CVA) without late effect Code(s): Z86.73 - PRSNL HX OF TIA (TIA), AND CEREB INFRC W/O RESID DEFICITS
[2018-09-09] MEDS ORDERED: cefTRIAXone SODIUM 1 GM VIAL ONE (09:50)
[2018-09-09] MEDS ORDERED: DEXTROSE 5%-WATER - 50 ML IVPB ONE (09:51)
[2018-09-09] MEDS: CEFTRIAXONE 1 GM in DEXTROSE 5%-WATER - 50 ML IVPB SCH (10:14)
[2018-09-09] MEDS: HEPARIN NA (PORCINE) 5,000 UNITS/ML 1ML VIAL SQ SCH ×2 (10:15→21:26)
[2018-09-09] MEDS: PANTOPRAZOLE 40 MG TABLET (FP) PO SCH (10:15)
[2018-09-09] MEDS: CARVEDILOL 12.5 MG TABLET (FP) PO SCH ×2 (10:15→21:26)
[2018-09-09] MEDS: POLYETHYLENE GLYCOL 3350 119 GM BTL PO SCH (10:15)
--- NOTE | 2018-09-09 13:26 | PN ---
Progress Note (short form) - Note Progress Note: Renal follow up for ISMAEL Pt seen and examined at the bedside no acute complaints making urine Vital Signs Temperature 98.2 F 09/09/18 10:00 Pulse Rate 77 09/09/18 10:00 Respiratory Rate 20 09/09/18 10:00 Blood Pressure 147/99 09/09/18 10:00 O2 Sat by Pulse Oximetry (%) 100 09/08/18 21:00 NAD awake and alert + edema in LE CBC, BMP 09/08/18 05:30 09/08/18 05:30 Current Medications Acetaminophen (Tylenol -) 650 mg PO Q6H PRN PRN Reason: FEVER Last Admin: 09/07/18 06:03 Dose: 650 mg Carvedilol (Coreg -) 12.5 mg PO BID [facility] Last Admin: 09/09/18 10:15 Dose: 12.5 mg Docusate Sodium (Colace -) 100 mg PO TID [facility] Last Admin: 09/09/18 06:11 Dose: 100 mg Heparin Sodium (Porcine) (Heparin -) 5,000 unit SQ BID [facility] Last Admin: 09/09/18 10:15 Dose: 5,000 unit IV Flush (Vu-Cath Flush) 10 ml IVPUSH PRN PRN PRN Reason: protocol, patency maintenance Last Admin: 09/02/18 06:16 Dose: 10 ml IV Flush (Vu-Cath Flush) 10 ml IVPUSH PRN PRN PRN Reason: FLUSH Last Admin: 09/02/18 18:50 Dose: 10 ml Metronidazole (Flagyl 500mg Premixed Ivpb -) 500 mg in 100 mls @ 100 mls/hr IVPB Q8H-IV AJ Last Admin: 09/09/18 10:14 Dose: 100 mls/hr Ceftriaxone Sodium 1 gm/ (Dextrose) 50 mls @ 200 mls/hr IVPB DAILY [facility]; Protocol Last Admin: 09/09/18 10:14 Dose: 200 mls/hr Miscellaneous (Duragesic Patch Waste) 1 each TD PRN PRN PRN Reason: PAIN Pantoprazole Sodium (Protonix -) 40 mg PO DAILY [facility] Last Admin: 09/09/18 10:15 Dose: 40 mg Polyethylene Glycol (Miralax (For Daily Use) -) 17 gm PO DAILY [facility] Last Admin: 09/09/18 10:15 Dose: Not Given 48 year old gentleman with hx of Colon Ca on Chemo, Hypertension, CVA who presented with severe back pain and noted to develop ISMAEL during the hospital course. 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
--- NOTE | 2018-09-09 16:09 | PN ---
Progress Note (short form) - Note Progress Note: Patient seen and examined Completed course of RT Pain somewhat improved Engaging in physiotherapy. Last Vital Signs Temp Pulse Resp BP Pulse Ox 98.2 F 83 20 140/96 100 09/09/18 14:10 09/09/18 14:10 09/09/18 14:10 09/09/18 14:10 09/08/18 21:00 HEENT: EZEQUIEL, EOM Intact Oropharynx: No thrush, No mucositis Cor: RSR, No murmurs, No gallops Lungs-diminished breth sounds bilaterally Abd: Soft, Normal bowel sounds, distended, edema of abdominal wall, colostomy Ext:LE edema Skin: No rashes, Integument intact CBC, BMP 09/08/18 05:30 09/08/18 05:30 Current Medications Generic Name Dose Route Start Last Admin Trade Name Freq PRN Reason Stop Dose Admin Acetaminophen 650 mg 08/23/18 14:35 09/07/18 06:03 Tylenol - PO 650 mg Q6H PRN Administration FEVER Carvedilol 12.5 mg 08/16/18 22:00 09/09/18 10:15 Coreg - PO 12.5 mg BID AJ Administration Docusate Sodium 100 mg 08/16/18 22:00 09/09/18 14:15 Colace - PO Not Given TID AJ Heparin Sodium (Porcine) 5,000 unit 09/05/18 22:00 09/09/18 10:15 Heparin - SQ 5,000 unit BID AJ Administration IV Flush 10 ml 08/18/18 22:39 09/02/18 06:16 Vu-Cath Flush IVPUSH 10 ml PRN PRN Administration protocol, patency maintenance IV Flush 10 ml 08/22/18 13:46 09/02/18 18:50 Vu-Cath Flush IVPUSH 10 ml PRN PRN Administration FLUSH Metronidazole 500 mg in 100 mls @ 100 mls/hr 08/27/18 18:00 09/09/18 10:14 Flagyl 500mg Premixed Ivpb - IVPB 100 mls/hr Q8H-IV AJ Administration Ceftriaxone Sodium 1 gm/ 50 mls @ 200 mls/hr 09/04/18 10:00 09/09/18 10:14 Dextrose IVPB 200 mls/hr DAILY AJ Administration Protocol Miscellaneous 1 each 08/26/18 18:51 Duragesic Patch Waste TD PRN PRN PAIN Pantoprazole Sodium 40 mg 08/17/18 10:00 09/09/18 10:15 Protonix - PO 40 mg DAILY AJ Administration Polyethylene Glycol 17 gm 08/19/18 10:00 09/09/18 10:15 Miralax (For Daily Use) - PO Not Given DAILY [facility] Impression: Metastatic colon ca Sacral mass S/P RT P.T. ISMAEL Anemia PLan: Needs rehab ?timing of chemotherapy intervention
--- NOTE | 2018-09-09 17:09 | PN ---
Progress Note, Physician Chief Complaint: left calf abscess History of Present Illness: 48yo PMH significant for metastatic rectal cancer BRAF mutated/KRAS wild type/ MSIstable, with liver/lung mets, noted to have spontaneous drainge of left calf abscess. stable post procedure. - Current Medication List Current Medications: Active Medications Acetaminophen (Tylenol -) 650 mg PO Q6H PRN PRN Reason: FEVER Last Admin: 09/07/18 06:03 Dose: 650 mg Carvedilol (Coreg -) 12.5 mg PO BID [facility] Last Admin: 09/09/18 10:15 Dose: 12.5 mg Docusate Sodium (Colace -) 100 mg PO TID [facility] Last Admin: 09/09/18 14:15 Dose: Not Given Heparin Sodium (Porcine) (Heparin -) 5,000 unit SQ BID [facility] Last Admin: 09/09/18 10:15 Dose: 5,000 unit IV Flush (Vu-Cath Flush) 10 ml IVPUSH PRN PRN PRN Reason: protocol, patency maintenance Last Admin: 09/02/18 06:16 Dose: 10 ml IV Flush (Vu-Cath Flush) 10 ml IVPUSH PRN PRN PRN Reason: FLUSH Last Admin: 09/02/18 18:50 Dose: 10 ml Metronidazole (Flagyl 500mg Premixed Ivpb -) 500 mg in 100 mls @ 100 mls/hr IVPB Q8H-IV [facility] Last Admin: 09/09/18 10:14 Dose: 100 mls/hr Ceftriaxone Sodium 1 gm/ (Dextrose) 50 mls @ 200 mls/hr IVPB DAILY [facility]; Protocol Last Admin: 09/09/18 10:14 Dose: 200 mls/hr Miscellaneous (Duragesic Patch Waste) 1 each TD PRN PRN PRN Reason: PAIN Morphine Sulfate (Morphine Injection -) 2 mg IVPUSH ONCE ONE Stop: 09/09/18 17:08 Pantoprazole Sodium (Protonix -) 40 mg PO DAILY [facility] Last Admin: 09/09/18 10:15 Dose: 40 mg Polyethylene Glycol (Miralax (For Daily Use) -) 17 gm PO DAILY [facility] Last Admin: 09/09/18 10:15 Dose: Not Given - Objective Vital Signs: Vital Signs Temperature 98.2 F 09/09/18 14:10 Pulse Rate 83 09/09/18 14:10 Respiratory Rate 20 09/09/18 14:10 Blood Pressure 140/96 09/09/18 14:10 O2 Sat by Pulse Oximetry (%) 100 09/09/18 09:00 Constitutional: Yes: Well Nourished, No Distress, Calm Eyes: Yes: Conjunctiva Clear, EOM Intact HENT: Yes: Atraumatic, Normocephalic Neck: Yes: Supple, Trachea Midline Cardiovascular: Yes: Regular Rate and Rhythm, S1, S2 Respiratory: Yes: Regular, CTA Bilaterally Gastrointestinal: Yes: Normal Bowel Sounds, Soft ...Rectal Exam: Yes: Deferred Genitourinary: No: CVA Tenderness - Left, CVA Tenderness - Right Musculoskeletal: No: Muscle Pain, Muscle Weakness Extremities: No: Cool, Cyanosis Edema: Yes Edema: LLE: 1+ (improved ) Peripheral Pulses WNL: Yes Peripheral Pulses: Left Radial: 2+, Right Radial: 2+, Left Doralis Pedis: 2+, Right Dorsalis Pedis: 2+, Left Femoral: 2+, Right Femoral: 2+ Wound/Incision: Yes: Clean/Dry, Dressing Dry and Intact, Draining, Unapproximated Neurological: Yes: Alert, Oriented Psychiatric: Yes: Alert, Oriented Labs: CBC, BMP 09/08/18 05:30 09/08/18 05:30 Problem List - Problems (1) Calf abscess Assessment/Plan: 48 yo male MMP with large posterior calf abscess. s/p I&D of left calf abscess. Microbiology 09/06/18 11:17 Calf - Left Anterior Gram Stain - Final 09/06/18 11:17 Calf - Left Anterior Wound Culture - Final NO GROWTH AFTER 48 HOURS INCUBATION 09/05/18 15:08 Calf - Left Posterior Gram Stain - Final 09/05/18 15:08 Calf - Left Posterior Wound Culture - Final NO GROWTH AFTER 48 HOURS INCUBATION 09/04/18 00:03 Wound Gram Stain - Final 09/04/18 00:03 Wound Wound Culture - Final Escherichia Fergusonii IV antibiotics per ID Leg elevation local wound care f/u culture Will follow Code(s): L02.419 - CUTANEOUS ABSCESS OF LIMB, UNSPECIFIED (2) Intractable back pain Code(s): M54.9 - DORSALGIA, UNSPECIFIED (3) Metastatic colon cancer to liver Code(s): C18.9 - MALIGNANT NEOPLASM OF COLON, UNSPECIFIED; C78.7 - SECONDARY MALIG NEOPLASM OF LIVER AND INTRAHEPATIC BILE DUCT (4) Sciatica of left side Code(s): M54.32 - SCIATICA, LEFT SIDE (5) CVA (cerebral vascular accident) Code(s): I63.9 - CEREBRAL INFARCTION, UNSPECIFIED (6) Hypertension Code(s): I10 - ESSENTIAL (PRIMARY) HYPERTENSION
[2018-09-09] MEDS ORDERED: morphine SULFATE 4 MG/ML VIAL ONE (17:10)
[2018-09-09] MEDS ORDERED: MORPHINE SULFATE 2 MG/ML VIAL IVPUSH ONE ×2 (17:15→22:11)
[2018-09-10] MEDS: DOCUSATE SODIUM 100 MG CAPSULE (FP) PO SCH ×3 (05:01→21:48)
[2018-09-10] MEDS: ACETAMINOPHEN 325 MG TABLET (FP) PO PRN ×2 (06:26→18:29)
--- NOTE | 2018-09-10 06:59 | PN ---
Progress Note (short form) - Note Progress Note: Patient seen and examined Last Vital Signs Temp Pulse Resp BP Pulse Ox 99.6 F 86 20 138/94 100 09/10/18 06:00 09/10/18 06:00 09/10/18 06:00 09/10/18 06:00 09/09/18 21:00 Intermittent pains --6-7/10 in LE's Getting rehab . Still unable to ambulate on own HEENT: EZEQUIEL, EOM Intact Oropharynx: No thrush, No mucositis, coated tongue Cor: RSR, No murmurs, No gallops Lungs: Clear to P&A Abd: Soft, Normal bowel sounds, No organomegaly, functioning colostomy penile edema Ext:LE edemaedema Skin: No rashes, Integument intact CBC, BMP 09/08/18 05:30 09/08/18 05:30 Current Medications Generic Name Dose Route Start Last Admin Trade Name Freq PRN Reason Stop Dose Admin Acetaminophen 650 mg 08/23/18 14:35 09/10/18 06:26 Tylenol - PO 650 mg Q6H PRN Administration FEVER Carvedilol 12.5 mg 08/16/18 22:00 09/09/18 21:26 Coreg - PO 12.5 mg BID AJ Administration Docusate Sodium 100 mg 08/16/18 22:00 09/10/18 05:01 Colace - PO Not Given TID AJ Heparin Sodium (Porcine) 5,000 unit 09/05/18 22:00 09/09/18 21:26 Heparin - SQ 5,000 unit BID AJ Administration IV Flush 10 ml 08/18/18 22:39 09/02/18 06:16 Vu-Cath Flush IVPUSH 10 ml PRN PRN Administration protocol, patency maintenance IV Flush 10 ml 08/22/18 13:46 09/02/18 18:50 Vu-Cath Flush IVPUSH 10 ml PRN PRN Administration FLUSH Metronidazole 500 mg in 100 mls @ 100 mls/hr 08/27/18 18:00 09/10/18 01:39 Flagyl 500mg Premixed Ivpb - IVPB 100 mls/hr Q8H-IV AJ Administration Ceftriaxone Sodium 1 gm/ 50 mls @ 200 mls/hr 09/04/18 10:00 09/09/18 10:14 Dextrose IVPB 200 mls/hr DAILY AJ Administration Protocol Miscellaneous 1 each 08/26/18 18:51 Duragesic Patch Waste TD PRN PRN PAIN Pantoprazole Sodium 40 mg 08/17/18 10:00 09/09/18 10:15 Protonix - PO 40 mg DAILY AJ Administration Polyethylene Glycol 17 gm 08/19/18 10:00 09/09/18 10:15 Miralax (For Daily Use) - PO Not Given DAILY AJ Impression Metastatic colon ca Sacral mass Chemotherapy anticipated Rehab Plan : Check labs P.T. Anticipate chemotherapy
[2018-09-10 07:36] LABS: BASO % 0.2 % (0-2.0); EOS % 0.6 % (0-4.5); HEMATOCRIT 23.1 % (35.4-49); HEMOGLOBIN 7.9 GM/dL (11.7-16.9); MCH 28.4 pg (25.7-33.7); MCHC 34.1 g/dl (32.0-35.9); MEAN CELL VOLUME 83.2 fl (80-96); MEAN PLT VOLUME 8.2 fl (7.5-11.1); MONO % 9.3 % (3.8-10.2); NEUT % 85.9 % (42.8-82.8); PLATELET COUNT 277 K/MM3 (134-434); RBC 2.78 M/mm3 (4.00-5.60); RDW 18.8 % (11.9-15.9)
[2018-09-10 09:18] LABS: ACANTHOCYTES 0; ANISOCYTOSIS 0; HELMET CELLS 0; HOWELL-JOLLY BODIES 0; MACROCYTOSIS 0; OVALOCYTE 0; PLATELET ESTIMATE NORMAL; ROULEAU 0; SICKELED CELLS 0; TARGET CELLS 0; TEAR DROP CELLS 0; TOXIC GRANULATION 0
[2018-09-10] MEDS ORDERED: cefTRIAXone SODIUM 1 GM VIAL ONE (10:34)
[2018-09-10] MEDS ORDERED: DEXTROSE 5%-WATER - 50 ML IVPB ONE (10:34)
[2018-09-10] MEDS: CEFTRIAXONE 1 GM in DEXTROSE 5%-WATER - 50 ML IVPB SCH (10:57)
[2018-09-10] MEDS: PANTOPRAZOLE 40 MG TABLET (FP) PO SCH (10:58)
[2018-09-10] MEDS: POLYETHYLENE GLYCOL 3350 119 GM BTL PO SCH (10:58)
[2018-09-10] MEDS: CARVEDILOL 12.5 MG TABLET (FP) PO SCH ×2 (10:58→21:48)
[2018-09-10] MEDS: HEPARIN NA (PORCINE) 5,000 UNITS/ML 1ML VIAL SQ SCH ×2 (10:58→21:48)
--- NOTE | 2018-09-10 11:48 | PN ---
Progress Note (short form) - Note Progress Note: feels well decreased pain did not ask for pain meds since last night per RN has still pus from the left calf Vital Signs - 24 hr 09/09/18 09/09/18 09/09/18 14:10 21:00 22:00 Temperature 98.2 F 98.0 F Pulse Rate 83 79 Respiratory 20 20 Rate Blood Pressure 140/96 141/90 O2 Sat by Pulse 100 Oximetry (%) 09/10/18 06:00 Temperature 99.6 F Pulse Rate 86 Respiratory 20 Rate Blood Pressure 138/94 O2 Sat by Pulse Oximetry (%) Current Medications Generic Name Dose Route Start Last Admin Trade Name Freq PRN Reason Stop Dose Admin Acetaminophen 650 mg 08/23/18 14:35 09/10/18 06:26 Tylenol - PO 650 mg Q6H PRN Administration FEVER Carvedilol 12.5 mg 08/16/18 22:00 09/10/18 10:58 Coreg - PO 12.5 mg BID AJ Administration Docusate Sodium 100 mg 08/16/18 22:00 09/10/18 05:01 Colace - PO Not Given TID AJ Heparin Sodium (Porcine) 5,000 unit 09/05/18 22:00 09/10/18 10:58 Heparin - SQ 5,000 unit BID AJ Administration IV Flush 10 ml 08/18/18 22:39 09/02/18 06:16 Vu-Cath Flush IVPUSH 10 ml PRN PRN Administration protocol, patency maintenance IV Flush 10 ml 08/22/18 13:46 09/02/18 18:50 Vu-Cath Flush IVPUSH 10 ml PRN PRN Administration FLUSH Metronidazole 500 mg in 100 mls @ 100 mls/hr 08/27/18 18:00 09/10/18 10:58 Flagyl 500mg Premixed Ivpb - IVPB 100 mls/hr Q8H-IV AJ Administration Ceftriaxone Sodium 1 gm/ 50 mls @ 200 mls/hr 09/04/18 10:00 09/10/18 10:57 Dextrose IVPB 200 mls/hr DAILY AJ Administration Protocol Miscellaneous 1 each 08/26/18 18:51 Duragesic Patch Waste TD PRN PRN PAIN Pantoprazole Sodium 40 mg 08/17/18 10:00 09/10/18 10:58 Protonix - PO 40 mg DAILY AJ Administration Polyethylene Glycol 17 gm 08/19/18 10:00 09/10/18 10:58 Miralax (For Daily Use) - PO Not Given DAILY AJ Laboratory Results - last 24 hr 09/10/18 06:15 WBC 13.0 H RBC 2.78 L Hgb 7.9 L Hct 23.1 L MCV 83.2 MCH 28.4 MCHC 34.1 RDW 18.8 H Plt Count 277 MPV 8.2 Absolute Neuts (auto) 11.2 H Neutrophils % 85.9 H Lymphocytes % 4.0 L Monocytes % 9.3 Eosinophils % 0.6 D Basophils % 0.2 Nucleated RBC % 0 S1 S2 RRR Anorexic Lungs decreased Abd - soft, NT, Colostomy functioning Ext- B/L leg edema, left arm edema, penile edema decreased- able to move left calf-- dressing PLAN pain control prn PT eval last radiation therapy tomorrow continue with current meds transfuse as needed plan for chemo as per Oncology Problem List - Problems (1) Intractable back pain Code(s): M54.9 - DORSALGIA, UNSPECIFIED (2) Metastatic colon cancer to liver Code(s): C18.9 - MALIGNANT NEOPLASM OF COLON, UNSPECIFIED; C78.7 - SECONDARY MALIG NEOPLASM OF LIVER AND INTRAHEPATIC BILE DUCT (3) Neuropathy Code(s): G62.9 - POLYNEUROPATHY, UNSPECIFIED (4) Sciatica of left side Code(s): M54.32 - SCIATICA, LEFT SIDE (5) Hypertension Code(s): I10 - ESSENTIAL (PRIMARY) HYPERTENSION
[2018-09-10 15:26] LABS: ALBUMIN 1.1 g/dl (3.4-5.0); BILIRUBIN,TOTAL 0.7 mg/dL (0.2-1); BLOOD UREA NITROGEN 33 mg/dL (7-18); CHLORIDE 106 mmol/L (98-107); CREATININE 1.7 mg/dL (0.55-1.3); GLUCOSE,RANDOM 107 mg/dL (74-106); SGOT/AST 74 U/L (15-37); SGPT/ALT 12 U/L (13-61); SODIUM 141 mmol/L (136-145); TOT PROT 4.7 g/dl (6.4-8.2)
[2018-09-10 15:57] LABS: ANION GAP 9 MMOL/L (8-16); CO2 26 mmol/L (21-32)
[2018-09-10 15:58] LABS: ALK PHOS 886 U/L (45-117)
--- NOTE | 2018-09-10 17:26 | PN ---
Progress Note (short form) - Note Progress Note: Renal follow up for ISMAEL Pt seen and examined at the bedside was having dressing on calf changed, in pain denies any sob, cp, abd pain making urine gilmore removed Vital Signs Temperature 98 F 09/10/18 14:41 Pulse Rate 89 09/10/18 14:41 Respiratory Rate 20 09/10/18 14:41 Blood Pressure 148/105 H 09/10/18 14:41 O2 Sat by Pulse Oximetry (%) 100 09/09/18 21:00 Intake & Output 09/07/18 09/08/18 09/09/18 09/10/18 23:59 23:59 23:59 23:59 Intake Total 7260 096 1559 937 Output Total 2350 2650 1950 25 Balance -1250 -1750 -750 912 NAD awake and alert neck supple soft NT/ND no LE edema CBC, BMP 09/10/18 06:15 09/10/18 11:30 Current Medications Acetaminophen (Tylenol -) 650 mg PO Q6H PRN PRN Reason: FEVER Last Admin: 09/10/18 06:26 Dose: 650 mg Carvedilol (Coreg -) 12.5 mg PO BID AJ Last Admin: 09/10/18 10:58 Dose: 12.5 mg Docusate Sodium (Colace -) 100 mg PO TID AJ Last Admin: 09/10/18 14:47 Dose: Not Given Heparin Sodium (Porcine) (Heparin -) 5,000 unit SQ BID AJ Last Admin: 09/10/18 10:58 Dose: 5,000 unit IV Flush (Vu-Cath Flush) 10 ml IVPUSH PRN PRN PRN Reason: protocol, patency maintenance Last Admin: 09/02/18 06:16 Dose: 10 ml IV Flush (Vu-Cath Flush) 10 ml IVPUSH PRN PRN PRN Reason: FLUSH Last Admin: 09/02/18 18:50 Dose: 10 ml Metronidazole (Flagyl 500mg Premixed Ivpb -) 500 mg in 100 mls @ 100 mls/hr IVPB Q8H-IV AJ Last Admin: 09/10/18 10:58 Dose: 100 mls/hr Ceftriaxone Sodium 1 gm/ (Dextrose) 50 mls @ 200 mls/hr IVPB DAILY AJ; Protocol Last Admin: 09/10/18 10:57 Dose: 200 mls/hr Miscellaneous (Duragesic Patch Waste) 1 each TD PRN PRN PRN Reason: PAIN Pantoprazole Sodium (Protonix -) 40 mg PO DAILY [facility] Last Admin: 09/10/18 10:58 Dose: 40 mg Polyethylene Glycol (Miralax (For Daily Use) -) 17 gm PO DAILY [facility] Last Admin: 09/10/18 10:58 Dose: Not Given 48 year old gentleman with hx of Colon Ca on Chemo, Hypertension, CVA who presented with severe back pain and noted to develop ISMAEL during the hospital course. #Progressive worsening of renal function with decreasing urine output in setting of gram negative bactermiea/sepsis (urine Na very low indicating preserved tubular function, Urine Eos pending, no hydronephrosis seen on US) requiring HD #Anion gap metabolic acidosis #Gram negative bacteremia #Metastatic colon Ca Renal function continuing to improve trend urine output w/o glimore avoid nephrotoxisn such as contrast and nsaids dose all meds for CrCl ~30 trend renal function and electrolytes continue supportive care Oncology follow up continue Abx as per DIVINA Pulido DO
[2018-09-10] MEDS ORDERED: MORPHINE SULFATE 2 MG/ML VIAL IVPUSH ONE (19:30)
[2018-09-11] MEDS: DOCUSATE SODIUM 100 MG CAPSULE (FP) PO SCH ×3 (05:18→21:01)
[2018-09-11] MEDS: CARVEDILOL 12.5 MG TABLET (FP) PO SCH ×3 (06:21→21:01)
[2018-09-11 07:35] LABS: BASO % 0.5 % (0-2.0); EOS % 0.5 % (0-4.5); HEMATOCRIT 22.9 % (35.4-49); HEMOGLOBIN 7.3 GM/dL (11.7-16.9); LYMPH % 7.4 % (8-40); MCH 26.7 pg (25.7-33.7); MCHC 31.9 g/dl (32.0-35.9); MEAN CELL VOLUME 83.9 fl (80-96); MEAN PLT VOLUME 8.2 fl (7.5-11.1); MONO % 10.2 % (3.8-10.2); NEUT % 81.4 % (42.8-82.8); PLATELET COUNT 236 K/MM3 (134-434); RBC 2.72 M/mm3 (4.00-5.60); RDW 18.5 % (11.9-15.9); WHITE BLOOD COUNT 13.3 K/mm3 (4.0-10.0)
[2018-09-11 08:40] LABS: ALK PHOS 822 U/L (45-117); ANION GAP 9 MMOL/L (8-16); BILIRUBIN,TOTAL 0.7 mg/dL (0.2-1); BLOOD UREA NITROGEN 29 mg/dL (7-18); CALCIUM 7.1 mg/dL (8.5-10.1); CHLORIDE 106 mmol/L (98-107); CO2 25 mmol/L (21-32); CREATININE 1.4 mg/dL (0.55-1.3); GLUCOSE,RANDOM 81 mg/dL (74-106); MAGNESIUM 1.9 mg/dL (1.8-2.4); POTASSIUM 3.6 mmol/L (3.5-5.1); SGOT/AST 71 U/L (15-37); SGPT/ALT 12 U/L (13-61); SODIUM 140 mmol/L (136-145); TOT PROT 4.4 g/dl (6.4-8.2)
[2018-09-11] MEDS ORDERED: cefTRIAXone SODIUM 1 GM VIAL ONE (09:56)
[2018-09-11] MEDS ORDERED: PT OWN MED DRAWER 7, Y5N ONE (09:56)
[2018-09-11] MEDS: CEFTRIAXONE 1 GM in DEXTROSE 5%-WATER - 50 ML IVPB SCH (10:06)
[2018-09-11] MEDS: PANTOPRAZOLE 40 MG TABLET (FP) PO SCH (10:06)
[2018-09-11] MEDS: HEPARIN NA (PORCINE) 5,000 UNITS/ML 1ML VIAL SQ SCH ×2 (10:07→21:02)
[2018-09-11] MEDS: POLYETHYLENE GLYCOL 3350 119 GM BTL PO SCH (10:08)
--- NOTE | 2018-09-11 11:04 | PN ---
Problem List - Problems (1) Intractable back pain Code(s): M54.9 - DORSALGIA, UNSPECIFIED (2) Metastatic colon cancer to liver Code(s): C18.9 - MALIGNANT NEOPLASM OF COLON, UNSPECIFIED; C78.7 - SECONDARY MALIG NEOPLASM OF LIVER AND INTRAHEPATIC BILE DUCT (3) Neuropathy Code(s): G62.9 - POLYNEUROPATHY, UNSPECIFIED (4) Sciatica of left side Code(s): M54.32 - SCIATICA, LEFT SIDE (5) Hypertension Code(s): I10 - ESSENTIAL (PRIMARY) HYPERTENSION
[2018-09-11 11:36] LABS: ACANTHOCYTES 0; ANISOCYTOSIS 0; HELMET CELLS 0; HOWELL-JOLLY BODIES 0; MACROCYTOSIS 0; OVALOCYTE 0; PLATELET ESTIMATE NORMAL; ROULEAU 0; SICKELED CELLS 0; TARGET CELLS 0; TEAR DROP CELLS 0; TOXIC GRANULATION 0
--- NOTE | 2018-09-11 16:24 | PN ---
Progress Note (short form) - Note Progress Note: PROGRESS NOTE FOR HEMATOLOGY/ONCOLOGY Patient seen and examined by me at bedside. Still complains of leg pain but adequately controlled Otherwise, denies any fever, chills, nausea, vomiting, abdominal pain, chest pain, palpitations, shortness of breath Vital Signs Temperature 98.2 F 09/11/18 14:45 Pulse Rate 93 H 09/11/18 14:45 Respiratory Rate 20 09/11/18 14:45 Blood Pressure 146/101 H 09/11/18 14:45 O2 Sat by Pulse Oximetry (%) 99 09/10/18 21:00 PHYSICAL EXAMINATION GENERAL: Awake, alert, oriented, no acute distress EYES: conjunctiva clear. ENT: Moist mucous membranes LUNGS: Diminished breath sounds bilaterally with no crackles or wheezes HEART: RRR, normal S1 and S2 ABDOMEN: Soft, nontender, not distended, normoactive bowel sounds. Colostomy bag in place EXTREMITIES: 3+ Edema in UE and LE . C/D/I dressing of left leg. Laboratory Tests 09/11/18 06:30 09/11/18 06:30 ASSESSMENT AND PLAN: Patient is a 48 year old male with metastatic rectal cancer with mets to the liver and lungs on 5-FU/Leucovorin who presented with severe left leg pain for > 1 weeks. Patient found to have sepsis and admitted for further monitoring and management. Problem List: Metastatic Rectal Cancer with perirectal mass extending through sciatic notch and into piriformis muscle. HTN ISMAEL on CKD Anemia of chronic disease Tumor fevers Left Calf Abscess PLAN: -Continue Pain medications -Continue antibiotics, as per ID -Kidney function improving. Monitor off dialysis -Transfuse PRBC PRN -Continue PT, patient still unable to walk or bare weight -Plans for ironotecan weekly dose likely
--- NOTE | 2018-09-11 16:57 | PN ---
Progress Note (short form) - Note Progress Note: Renal follow up for ISMAEL Pt seen and examined at the bedside no acute complaints making urine Vital Signs Temperature 98.2 F 09/11/18 14:45 Pulse Rate 93 H 09/11/18 14:45 Respiratory Rate 20 09/11/18 14:45 Blood Pressure 146/101 H 09/11/18 14:45 O2 Sat by Pulse Oximetry (%) 99 09/10/18 21:00 NAD improving LE edema CBC, BMP 09/11/18 06:30 09/11/18 06:30 48 year old gentleman with hx of Colon Ca on Chemo, Hypertension, CVA who presented with severe back pain and noted to develop ISMAEL during the hospital course. #Progressive worsening of renal function with decreasing urine output in setting of gram negative bactermiea/sepsis (urine Na very low indicating preserved tubular function, Urine Eos pending, no hydronephrosis seen on US) requiring HD #Anion gap metabolic acidosis #Gram negative bacteremia #Metastatic colon Ca Renal function continuing to improve oral intake as tolerated voiding w/o catheter trend renal function and electrolytes Sami Pulido DO
--- NOTE | 2018-09-11 17:02 | PN ---
Progress Note, Physician Chief Complaint: left calf abscess History of Present Illness: 48yo PMH significant for metastatic rectal cancer BRAF mutated/KRAS wild type/ MSIstable, with liver/lung mets, noted to have spontaneous drainge of left calf abscess. stable post procedure. - Current Medication List Current Medications: Active Medications Acetaminophen (Tylenol -) 650 mg PO Q6H PRN PRN Reason: FEVER Last Admin: 09/10/18 18:29 Dose: 650 mg Carvedilol (Coreg -) 12.5 mg PO BID AJ Last Admin: 09/11/18 10:07 Dose: Not Given Docusate Sodium (Colace -) 100 mg PO TID AJ Last Admin: 09/11/18 13:46 Dose: Not Given Heparin Sodium (Porcine) (Heparin -) 5,000 unit SQ BID AJ Last Admin: 09/11/18 10:07 Dose: 5,000 unit IV Flush (Vu-Cath Flush) 10 ml IVPUSH PRN PRN PRN Reason: protocol, patency maintenance Last Admin: 09/02/18 06:16 Dose: 10 ml IV Flush (Vu-Cath Flush) 10 ml IVPUSH PRN PRN PRN Reason: FLUSH Last Admin: 09/02/18 18:50 Dose: 10 ml Metronidazole (Flagyl 500mg Premixed Ivpb -) 500 mg in 100 mls @ 100 mls/hr IVPB Q8H-IV AJ Last Admin: 09/11/18 10:07 Dose: 100 mls/hr Ceftriaxone Sodium 1 gm/ (Dextrose) 50 mls @ 200 mls/hr IVPB DAILY AJ; Protocol Last Admin: 09/11/18 10:06 Dose: 200 mls/hr Miscellaneous (Duragesic Patch Waste) 1 each TD PRN PRN PRN Reason: PAIN Pantoprazole Sodium (Protonix -) 40 mg PO DAILY AJ Last Admin: 09/11/18 10:06 Dose: 40 mg Polyethylene Glycol (Miralax (For Daily Use) -) 17 gm PO DAILY AJ Last Admin: 09/11/18 10:08 Dose: Not Given - Objective Vital Signs: Vital Signs Temperature 98.2 F 09/11/18 14:45 Pulse Rate 93 H 09/11/18 14:45 Respiratory Rate 20 09/11/18 14:45 Blood Pressure 146/101 H 09/11/18 14:45 O2 Sat by Pulse Oximetry (%) 99 09/10/18 21:00 Vital Signs Period Temp Pulse Resp BP Sys/Bal Pulse Ox Last 24 Hr 98.2 F-98.9 F 79-93 18-20 135-146/89-102 99 Constitutional: Yes: Well Nourished, No Distress, Calm Eyes: Yes: Conjunctiva Clear, EOM Intact HENT: Yes: Atraumatic, Normocephalic Neck: Yes: Supple, Trachea Midline Cardiovascular: Yes: Regular Rate and Rhythm, S1, S2 Respiratory: Yes: Regular, CTA Bilaterally Gastrointestinal: Yes: Normal Bowel Sounds, Soft. No: Tenderness ...Rectal Exam: Yes: Deferred Genitourinary: No: CVA Tenderness - Left, CVA Tenderness - Right Musculoskeletal: Yes: Back Pain, Muscle Pain, Muscle Weakness Extremities: Yes: Calf Tenderness (left -[place]). No: Cool, Cyanosis Edema: Yes Edema: LLE: Trace Peripheral Pulses WNL: Yes Peripheral Pulses: Left Radial: 2+, Right Radial: 2+, Left Doralis Pedis: 2+, Right Dorsalis Pedis: 2+, Left Femoral: 2+, Right Femoral: 2+ Wound/Incision: Yes: Clean/Dry, Dressing Dry and Intact, Unapproximated, Other ( edema imporved). No: Draining, Reddened Neurological: Yes: Alert, Oriented Psychiatric: Yes: Alert, Oriented Labs: CBC, BMP 09/11/18 06:30 09/11/18 06:30 Problem List - Problems (1) Calf abscess Assessment/Plan: 48 yo male MMP with large posterior calf abscess. s/p I&D of left calf abscess. Antibiotics per ID Leg elevation local wound care by nurse Will follow peripherally discharge per primary f/u in wound care center Code(s): L02.419 - CUTANEOUS ABSCESS OF LIMB, UNSPECIFIED (2) Intractable back pain Code(s): M54.9 - DORSALGIA, UNSPECIFIED (3) Metastatic colon cancer to liver Code(s): C18.9 - MALIGNANT NEOPLASM OF COLON, UNSPECIFIED; C78.7 - SECONDARY MALIG NEOPLASM OF LIVER AND INTRAHEPATIC BILE DUCT (4) Sciatica of left side Code(s): M54.32 - SCIATICA, LEFT SIDE (5) CVA (cerebral vascular accident) Code(s): I63.9 - CEREBRAL INFARCTION, UNSPECIFIED (6) Hypertension Code(s): I10 - ESSENTIAL (PRIMARY) HYPERTENSION
[2018-09-11] MEDS ORDERED: MORPHINE SULFATE 2 MG/ML VIAL IVPUSH ONE (20:18)
--- NOTE | 2018-09-11 20:36 | PN ---
Progress Note (short form) - Note Progress Note: PAtient seen and examined Completed RT Feels Ok Denies any specific complaints AFVSS Cor: RSR, No murmurs, No gallops Lungs: Clear to P&A Abd: Soft, Normal bowel sounds, No organomegaly Ext:LLE edema/dressing scrotal edema Labs/meds reviewed A/P 48 y/o with metastatic rectal cancer BRAF mutated/KRAS wild type/ MSIstable, with liver/lung mets, s/p surgery, ON FOLFOX/avastin, recent oxaliplatin neuropathy and had been on 5-FU/leucovorin/avastin, recent scans on 08/07 showing progressive disease, comes in with left leg severe pain of 1 week duration. MRI T/L spine show no cord compression Recurrent 6 cm pelvic mass encroaching sciatic foramen,liver mets, lung mets s/p RT to pelvic mass will dose [id number] discussed with patient and his mother
[2018-09-12] MEDS: DOCUSATE SODIUM 100 MG CAPSULE (FP) PO SCH ×3 (05:02→21:28)
--- NOTE | 2018-09-12 09:44 | PN ---
Progress Note (short form) - Note Progress Note: Patient seen and examined Patient seems more comfortable -s/p RT For irinotecan Last Vital Signs Temp Pulse Resp BP Pulse Ox 98.8 F 83 20 142/102 H 97 09/12/18 06:17 09/12/18 06:17 09/12/18 06:17 09/12/18 06:17 09/11/18 21:00 HEENT: EZEQUIEL, EOM Intact Oropharynx: No thrush, No mucositis Cor: RSR, No murmurs, No gallops Lungs: Clear to P&A Abd: Soft, Normal bowel sounds, No organomegaly, functioning colostomy Ext:No significant edema Skin: No rashes, Integument intact Current Medications Generic Name Dose Route Start Last Admin Trade Name Freq PRN Reason Stop Dose Admin Acetaminophen 650 mg 08/23/18 14:35 09/10/18 18:29 Tylenol - PO 650 mg Q6H PRN Administration FEVER Atropine Sulfate 0.4 mg 09/12/18 10:00 Atropine Injection - IVPUSH 09/12/18 10:01 ONCE ONE Carvedilol 12.5 mg 08/16/18 22:00 09/11/18 21:01 Coreg - PO 12.5 mg BID AJ Administration Docusate Sodium 100 mg 08/16/18 22:00 09/12/18 05:02 Colace - PO Not Given TID AJ Heparin Sodium (Porcine) 5,000 unit 09/05/18 22:00 09/11/18 21:02 Heparin - SQ 5,000 unit BID AJ Administration IV Flush 10 ml 08/18/18 22:39 09/02/18 06:16 Vu-Cath Flush IVPUSH 10 ml PRN PRN Administration protocol, patency maintenance IV Flush 10 ml 08/22/18 13:46 09/02/18 18:50 Vu-Cath Flush IVPUSH 10 ml PRN PRN Administration FLUSH Metronidazole 500 mg in 100 mls @ 100 mls/hr 08/27/18 18:00 09/12/18 01:28 Flagyl 500mg Premixed Ivpb - IVPB 100 mls/hr Q8H-IV AJ Administration Ceftriaxone Sodium 1 gm/ 50 mls @ 200 mls/hr 09/04/18 10:00 09/11/18 10:06 Dextrose IVPB 200 mls/hr DAILY AJ Administration Protocol Dexamethasone 10 mg/ Sodium 51 mls @ 204 mls/hr 09/12/18 10:00 Chloride IVPB 09/12/18 10:14 ONCE ONE Irinotecan HCl 183 mg/ 509.15 mls @ 339.433 mls/hr 09/12/18 10:30 Dextrose IVPB 09/12/18 11:59 ONCE ONE Sodium Chloride 1,000 mls @ 60 mls/hr 09/12/18 08:45 Normal Saline - IV ASDIR AJ Miscellaneous 1 each 08/26/18 18:51 Duragesic Patch Waste TD PRN PRN PAIN Palonosetron 0.25 mg 09/12/18 10:00 Aloxi - IVPUSH 09/12/18 10:01 ONCE ONE Pantoprazole Sodium 40 mg 08/17/18 10:00 09/11/18 10:06 Protonix - PO 40 mg DAILY AJ Administration Polyethylene Glycol 17 gm 08/19/18 10:00 09/11/18 10:08 Miralax (For Daily Use) - PO Not Given DAILY [facility] 48 y/o with metastatic rectal cancer BRAF mutated/KRAS wild type/ MSI stable, with liver/lung mets, s/p surgery, ON FOLFOX/avastin, recent oxaliplatin neuropathy and had been on 5-FU/leucovorin/avastin, with progression Recurrent 6 cm pelvic mass encroaching sciatic foramen,with severe pain s/p RT to pelvic mass, with improvement in pain To begin irinotecan. Has had slow progressive fall in Hb/ hct. Will need transfusion therapy.
[2018-09-12 09:46] LABS: BASO % 0.3 % (0-2.0); EOS % 0.3 % (0-4.5); HEMATOCRIT 21.8 % (35.4-49); HEMOGLOBIN 7.5 GM/dL (11.7-16.9); LYMPH % 3.8 % (8-40); MCH 28.3 pg (25.7-33.7); MCHC 34.3 g/dl (32.0-35.9); MEAN CELL VOLUME 82.7 fl (80-96); MEAN PLT VOLUME 8.3 fl (7.5-11.1); NEUT % 83.6 % (42.8-82.8); PLATELET COUNT 242 K/MM3 (134-434); RBC 2.64 M/mm3 (4.00-5.60); RDW 18.8 % (11.9-15.9); WHITE BLOOD COUNT 12.7 K/mm3 (4.0-10.0)
[2018-09-12] MEDS ORDERED: ATROPINE SO4 0.4 MG/1 ML VIAL IVPUSH ONE (10:00)
[2018-09-12] MEDS ORDERED: DEXAMETHASONE SODIUM PHOSPHATE 10 MG in SODIUM CHLORIDE 50 ML IVPB ONE (10:00)
[2018-09-12] MEDS ORDERED: PALONOSETRON HCL 0.25 MG/5 ML VIAL IVPUSH ONE (10:00)
[2018-09-12 10:14] LABS: ALK PHOS 874 U/L (45-117); ANION GAP 8 MMOL/L (8-16); BILIRUBIN,TOTAL 0.8 mg/dL (0.2-1); BLOOD UREA NITROGEN 25 mg/dL (7-18); CALCIUM 7.1 mg/dL (8.5-10.1); CHLORIDE 105 mmol/L (98-107); CO2 26 mmol/L (21-32); CREATININE 1.3 mg/dL (0.55-1.3); GLUCOSE,RANDOM 90 mg/dL (74-106); POTASSIUM 3.6 mmol/L (3.5-5.1); SGOT/AST 83 U/L (15-37); SGPT/ALT 15 U/L (13-61); SODIUM 139 mmol/L (136-145); TOT PROT 4.5 g/dl (6.4-8.2)
[2018-09-12] MEDS ORDERED: DEXTROSE 5% IVPB ONE (10:30)
[2018-09-12] MEDS ORDERED: WATER IVPB ONE (10:30)
[2018-09-12] MEDS ORDERED: IRINOTECAN HCL IVPB ONE (10:30)
[2018-09-12] MEDS ORDERED: cefTRIAXone SODIUM 1 GM VIAL ONE (10:44)
[2018-09-12] MEDS ORDERED: DEXTROSE 5%-WATER - 50 ML IVPB ONE (10:45)
[2018-09-12 11:25] LABS: ACANTHOCYTES 0; ANISOCYTOSIS 0; HELMET CELLS 0; HOWELL-JOLLY BODIES 0; MACROCYTOSIS 0; OVALOCYTE 0; PLATELET ESTIMATE NORMAL; ROULEAU 0; SICKELED CELLS 0; TARGET CELLS 0; TEAR DROP CELLS 0; TOXIC GRANULATION 0
[2018-09-12] MEDS: SODIUM CHLORIDE 1,000 ML IV SCH (11:45)
[2018-09-12] MEDS: CEFTRIAXONE 1 GM in DEXTROSE 5%-WATER - 50 ML IVPB SCH (11:45)
[2018-09-12] MEDS: PANTOPRAZOLE 40 MG TABLET (FP) PO SCH (11:46)
[2018-09-12] MEDS: CARVEDILOL 12.5 MG TABLET (FP) PO SCH ×2 (11:46→21:29)
[2018-09-12] MEDS: HEPARIN NA (PORCINE) 5,000 UNITS/ML 1ML VIAL SQ SCH (11:46)
--- NOTE | 2018-09-12 11:52 | PN ---
Progress Note (short form) - Note Progress Note: Renal follow up for ISMAEL Pt seen and examined at the bedside awake and alert no acute complaints has some aching pain in left leg drainage has improved Vital Signs Temperature 98.8 F 09/12/18 06:17 Pulse Rate 83 09/12/18 06:17 Respiratory Rate 20 09/12/18 06:17 Blood Pressure 142/102 H 09/12/18 06:17 O2 Sat by Pulse Oximetry (%) 97 09/11/18 21:00 NAD awake and alert neck supple no JVD trace to 1+ LE edema CBC, BMP 09/12/18 09:05 09/12/18 09:05 Current Medications Acetaminophen (Tylenol -) 650 mg PO Q6H PRN PRN Reason: FEVER Last Admin: 09/10/18 18:29 Dose: 650 mg Carvedilol (Coreg -) 12.5 mg PO BID [facility] Last Admin: 09/11/18 21:01 Dose: 12.5 mg Docusate Sodium (Colace -) 100 mg PO TID [facility] Last Admin: 09/12/18 05:02 Dose: Not Given Heparin Sodium (Porcine) (Heparin -) 5,000 unit SQ BID AJ Last Admin: 09/11/18 21:02 Dose: 5,000 unit IV Flush (Vu-Cath Flush) 10 ml IVPUSH PRN PRN PRN Reason: protocol, patency maintenance Last Admin: 09/02/18 06:16 Dose: 10 ml IV Flush (Vu-Cath Flush) 10 ml IVPUSH PRN PRN PRN Reason: FLUSH Last Admin: 09/02/18 18:50 Dose: 10 ml Metronidazole (Flagyl 500mg Premixed Ivpb -) 500 mg in 100 mls @ 100 mls/hr IVPB Q8H-IV AJ Last Admin: 09/12/18 01:28 Dose: 100 mls/hr Ceftriaxone Sodium 1 gm/ (Dextrose) 50 mls @ 200 mls/hr IVPB DAILY [facility]; Protocol Last Admin: 09/11/18 10:06 Dose: 200 mls/hr Irinotecan HCl 183 mg/ (Dextrose) 509.15 mls @ 339.433 mls/hr IVPB ONCE ONE Stop: 09/12/18 11:59 Sodium Chloride (Normal Saline -) 1,000 mls @ 60 mls/hr IV ASDIR AJ Miscellaneous (Duragesic Patch Waste) 1 each TD PRN PRN PRN Reason: PAIN Pantoprazole Sodium (Protonix -) 40 mg PO DAILY [facility] Last Admin: 09/11/18 10:06 Dose: 40 mg Polyethylene Glycol (Miralax (For Daily Use) -) 17 gm PO DAILY [facility] Last Admin: 09/11/18 10:08 Dose: Not Given 48 year old gentleman with hx of Colon Ca on Chemo, Hypertension, CVA who presented with severe back pain and noted to develop ISMAEL during the hospital course. #Progressive worsening of renal function with decreasing urine output in setting of gram negative bactermiea/sepsis (urine Na very low indicating preserved tubular function, Urine Eos pending, no hydronephrosis seen on US) requiring HD #Anion gap metabolic acidosis #Gram negative bacteremia #Metastatic colon Ca Renal function improving, pt is making urine w/o gilmore on IVF as per Oncology Trend renal function and electrolytes continue supportive care Sami Pulido DO
[2018-09-12] MEDS: POLYETHYLENE GLYCOL 3350 119 GM BTL PO SCH (11:54)
--- NOTE | 2018-09-12 11:55 | PN ---
Progress Note (short form) - Note Progress Note: comfortable all f/u noted chart reviewed denies pain alert/ awake Vital Signs Temp 98.8 F 09/12/18 06:17 Pulse 83 09/12/18 06:17 Resp 20 09/12/18 06:17 BP 142/102 H 09/12/18 06:17 Pulse Ox 97 09/11/18 21:00 Intake & Output 09/11/18 09/11/18 09/12/18 11:59 23:59 11:59 Intake Total 250 900 240 Output Total 200 750 Balance 250 700 -510 Intake: IVPB 100 200 Oral 150 700 240 Output: Urine 200 750 Void 200 750 Other: Voiding Method Urinal Urinal Urinal # Unmeasured Voids Void 4 Active Medications Acetaminophen (Tylenol -) 650 mg PO Q6H PRN PRN Reason: FEVER Last Admin: 09/10/18 18:29 Dose: 650 mg Carvedilol (Coreg -) 12.5 mg PO BID [facility] Last Admin: 09/11/18 21:01 Dose: 12.5 mg Docusate Sodium (Colace -) 100 mg PO TID [facility] Last Admin: 09/12/18 05:02 Dose: Not Given Heparin Sodium (Porcine) (Heparin -) 5,000 unit SQ BID AJ Last Admin: 09/11/18 21:02 Dose: 5,000 unit IV Flush (Vu-Cath Flush) 10 ml IVPUSH PRN PRN PRN Reason: protocol, patency maintenance Last Admin: 09/02/18 06:16 Dose: 10 ml IV Flush (Vu-Cath Flush) 10 ml IVPUSH PRN PRN PRN Reason: FLUSH Last Admin: 09/02/18 18:50 Dose: 10 ml Metronidazole (Flagyl 500mg Premixed Ivpb -) 500 mg in 100 mls @ 100 mls/hr IVPB Q8H-IV AJ Last Admin: 09/12/18 01:28 Dose: 100 mls/hr Ceftriaxone Sodium 1 gm/ (Dextrose) 50 mls @ 200 mls/hr IVPB DAILY [facility]; Protocol Last Admin: 09/11/18 10:06 Dose: 200 mls/hr Irinotecan HCl 183 mg/ (Dextrose) 509.15 mls @ 339.433 mls/hr IVPB ONCE ONE Stop: 09/12/18 11:59 Sodium Chloride (Normal Saline -) 1,000 mls @ 60 mls/hr IV ASDIR AJ Miscellaneous (Duragesic Patch Waste) 1 each TD PRN PRN PRN Reason: PAIN Pantoprazole Sodium (Protonix -) 40 mg PO DAILY [facility] Last Admin: 09/11/18 10:06 Dose: 40 mg Polyethylene Glycol (Miralax (For Daily Use) -) 17 gm PO DAILY [facility] Last Admin: 09/11/18 10:08 Dose: Not Given CBC, BMP 09/12/18 09:05 09/12/18 09:05 Physical Exam Awake/ comfortable S1 S2 RRR Lungs decreased at bases Abd - soft, NT, Colostomy functioning Ext- left lower extremity - dressing + PLAN better continue present care abx per i/d off dialysis now RT finished PT- daily oob - chair surgery also on case chemo today transfuse prn will follow discussed with nursing staff also today Problem List - Problems (1) Neuropathy Code(s): G62.9 - POLYNEUROPATHY, UNSPECIFIED (2) Sciatica of left side Code(s): M54.32 - SCIATICA, LEFT SIDE (3) Adenocarcinoma Code(s): C80.1 - MALIGNANT (PRIMARY) NEOPLASM, UNSPECIFIED (4) Hypertension Code(s): I10 - ESSENTIAL (PRIMARY) HYPERTENSION (5) Old cerebrovascular accident (CVA) without late effect Code(s): Z86.73 - PRSNL HX OF TIA (TIA), AND CEREB INFRC W/O RESID DEFICITS
--- NOTE | 2018-09-12 13:06 | PN ---
Progress Note, Physician History of Present Illness: Awake and alert. Conversant. No complaints Afebrile Wound c/s E fergusonii - Current Medication List Current Medications: Active Medications Acetaminophen (Tylenol -) 650 mg PO Q6H PRN PRN Reason: FEVER Last Admin: 09/10/18 18:29 Dose: 650 mg Carvedilol (Coreg -) 12.5 mg PO BID [facility] Last Admin: 09/12/18 11:46 Dose: 12.5 mg Docusate Sodium (Colace -) 100 mg PO TID [facility] Last Admin: 09/12/18 05:02 Dose: Not Given Heparin Sodium (Porcine) (Heparin -) 5,000 unit SQ BID AJ Last Admin: 09/12/18 11:46 Dose: 5,000 unit IV Flush (Vu-Cath Flush) 10 ml IVPUSH PRN PRN PRN Reason: protocol, patency maintenance Last Admin: 09/02/18 06:16 Dose: 10 ml IV Flush (Vu-Cath Flush) 10 ml IVPUSH PRN PRN PRN Reason: FLUSH Last Admin: 09/02/18 18:50 Dose: 10 ml Metronidazole (Flagyl 500mg Premixed Ivpb -) 500 mg in 100 mls @ 100 mls/hr IVPB Q8H-IV AJ Last Admin: 09/12/18 11:47 Dose: 100 mls/hr Ceftriaxone Sodium 1 gm/ (Dextrose) 50 mls @ 200 mls/hr IVPB DAILY [facility]; Protocol Last Admin: 09/12/18 11:45 Dose: 200 mls/hr Sodium Chloride (Normal Saline -) 1,000 mls @ 60 mls/hr IV ASDIR AJ Last Admin: 09/12/18 11:45 Dose: 60 mls/hr Miscellaneous (Duragesic Patch Waste) 1 each TD PRN PRN PRN Reason: PAIN Pantoprazole Sodium (Protonix -) 40 mg PO DAILY [facility] Last Admin: 09/12/18 11:46 Dose: 40 mg Polyethylene Glycol (Miralax (For Daily Use) -) 17 gm PO DAILY [facility] Last Admin: 09/12/18 11:54 Dose: Not Given - Objective Vital Signs: Vital Signs Temperature 98.8 F 09/12/18 06:17 Pulse Rate 83 09/12/18 06:17 Respiratory Rate 20 09/12/18 06:17 Blood Pressure 142/102 H 09/12/18 06:17 O2 Sat by Pulse Oximetry (%) 97 09/11/18 21:00 Constitutional: Yes: No Distress Eyes: Yes: Conjunctiva Clear Cardiovascular: Yes: Regular Rate and Rhythm, S1, S2 Respiratory: Yes: CTA Bilaterally Gastrointestinal: Yes: Normal Bowel Sounds, Soft, Other (+ ostomy). No: Tenderness Extremities: Yes: Other (dressing in place L LE) Edema: Yes Labs: CBC, BMP 09/12/18 09:05 09/12/18 09:05 Assessment/Plan Soft tissue abscess L calf s/p I&D Anaerobic bactermia, likely GI source Recurrent fever resolved Metastatic ca Renal failure Substitute Augmentin 875mg po bid x 10d
[2018-09-12] MEDS: ACETAMINOPHEN 325 MG TABLET (FP) PO PRN (17:36)
[2018-09-13] MEDS: DOCUSATE SODIUM 100 MG CAPSULE (FP) PO SCH ×3 (05:36→21:17)
[2018-09-13 07:06] LABS: BASO % 0.2 % (0-2.0); HEMATOCRIT 22.1 % (35.4-49); HEMOGLOBIN 7.5 GM/dL (11.7-16.9); LYMPH % 4.1 % (8-40); MCH 28.4 pg (25.7-33.7); MCHC 34.1 g/dl (32.0-35.9); MEAN CELL VOLUME 83.3 fl (80-96); MEAN PLT VOLUME 8.5 fl (7.5-11.1); MONO % 5.1 % (3.8-10.2); NEUT % 90.6 % (42.8-82.8); PLATELET COUNT 237 K/MM3 (134-434); RBC 2.66 M/mm3 (4.00-5.60); RDW 19.3 % (11.9-15.9)
[2018-09-13 08:01] LABS: ALK PHOS 874 U/L (45-117); ANION GAP 7 MMOL/L (8-16); BILIRUBIN,TOTAL 0.6 mg/dL (0.2-1); BLOOD UREA NITROGEN 29 mg/dL (7-18); CALCIUM 7.2 mg/dL (8.5-10.1); CHLORIDE 106 mmol/L (98-107); CO2 25 mmol/L (21-32); CREATININE 1.3 mg/dL (0.55-1.3); GLUCOSE,RANDOM 107 mg/dL (74-106); POTASSIUM 4.2 mmol/L (3.5-5.1); SGOT/AST 70 U/L (15-37); SGPT/ALT 15 U/L (13-61); SODIUM 138 mmol/L (136-145); TOT PROT 4.7 g/dl (6.4-8.2)
[2018-09-13] MEDS ORDERED: PT OWN MED DRAWER 7, Y5N ONE (08:59)
[2018-09-13] MEDS ORDERED: cefTRIAXone SODIUM 1 GM VIAL ONE (08:59)
[2018-09-13] MEDS ORDERED: DEXTROSE 5%-WATER - 50 ML IVPB ONE (08:59)
[2018-09-13] MEDS: CARVEDILOL 12.5 MG TABLET (FP) PO SCH ×2 (09:18→21:17)
[2018-09-13] MEDS: PANTOPRAZOLE 40 MG TABLET (FP) PO SCH (09:18)
[2018-09-13] MEDS: CEFTRIAXONE 1 GM in DEXTROSE 5%-WATER - 50 ML IVPB SCH (09:18)
[2018-09-13] MEDS: SODIUM CHLORIDE 1,000 ML IV SCH (09:19)
[2018-09-13] MEDS: POLYETHYLENE GLYCOL 3350 119 GM BTL PO SCH (09:19)
--- NOTE | 2018-09-13 10:04 | PN ---
Progress Note (short form) - Note Progress Note: Renal follow up for ISMAEL Pt seen and examined at the bedside awake and alert no acute complaints Vital Signs Temperature 98.3 F 09/13/18 09:14 Pulse Rate 84 09/13/18 09:14 Respiratory Rate 20 09/13/18 09:14 Blood Pressure 134/89 09/13/18 09:14 O2 Sat by Pulse Oximetry (%) 98 09/12/18 21:00 NAD awake and alert neck supple no JVD trace to 1+ LE edema CBC, BMP 09/13/18 06:00 09/13/18 06:00 Current Medications Acetaminophen (Tylenol -) 650 mg PO Q6H PRN PRN Reason: FEVER Last Admin: 09/12/18 17:36 Dose: 650 mg Carvedilol (Coreg -) 12.5 mg PO BID AJ Last Admin: 09/13/18 09:18 Dose: 12.5 mg Docusate Sodium (Colace -) 100 mg PO TID AJ Last Admin: 09/13/18 05:36 Dose: 100 mg IV Flush (Vu-Cath Flush) 10 ml IVPUSH PRN PRN PRN Reason: protocol, patency maintenance Last Admin: 09/02/18 06:16 Dose: 10 ml IV Flush (Vu-Cath Flush) 10 ml IVPUSH PRN PRN PRN Reason: FLUSH Last Admin: 09/02/18 18:50 Dose: 10 ml Metronidazole (Flagyl 500mg Premixed Ivpb -) 500 mg in 100 mls @ 100 mls/hr IVPB Q8H-IV AJ Last Admin: 09/13/18 09:19 Dose: 100 mls/hr Ceftriaxone Sodium 1 gm/ (Dextrose) 50 mls @ 200 mls/hr IVPB DAILY AJ; Protocol Last Admin: 09/13/18 09:18 Dose: 200 mls/hr Sodium Chloride (Normal Saline -) 1,000 mls @ 60 mls/hr IV ASDIR AJ Last Admin: 09/13/18 09:19 Dose: 60 mls/hr Miscellaneous (Duragesic Patch Waste) 1 each TD PRN PRN PRN Reason: PAIN Pantoprazole Sodium (Protonix -) 40 mg PO DAILY AJ Last Admin: 09/13/18 09:18 Dose: 40 mg Polyethylene Glycol (Miralax (For Daily Use) -) 17 gm PO DAILY AJ Last Admin: 09/13/18 09:19 Dose: Not Given 48 year old gentleman with hx of Colon Ca on Chemo, Hypertension, CVA who presented with severe back pain and noted to develop ISMAEL during the hospital course. #Progressive worsening of renal function with decreasing urine output in setting of gram negative bactermiea/sepsis (urine Na very low indicating preserved tubular function, Urine Eos pending, no hydronephrosis seen on US) requiring HD #Anion gap metabolic acidosis #Gram negative bacteremia #Metastatic colon Ca Renal function stable continue to trend renal function and electrolytes daily continue supportive care PT Chemo as per Oncology continue abx as per ID Sami Pulido DO
--- NOTE | 2018-09-13 12:14 | PN ---
Progress Note (short form) - Note Progress Note: Pt seen/ examined. comfortable no distress all f/u noted pain ok but need meds especially before dressing change. afebrile Vital Signs Temp 98.3 F 09/13/18 09:14 Pulse 84 09/13/18 09:14 Resp 20 09/13/18 09:14 BP 134/89 09/13/18 09:14 Pulse Ox 98 09/12/18 21:00 Intake & Output 09/12/18 09/13/18 09/13/18 23:59 11:59 23:59 Intake Total 950 830 Output Total 800 Balance 150 830 Intake: IV 480 saline lock 480 IVPB 100 Oral 950 250 Output: Urine 800 Void 800 Other: Voiding Method Urinal Urinal Bowel Movement No No Active Medications Acetaminophen (Tylenol -) 650 mg PO Q6H PRN PRN Reason: FEVER Last Admin: 09/12/18 17:36 Dose: 650 mg Carvedilol (Coreg -) 12.5 mg PO BID [facility] Last Admin: 09/13/18 09:18 Dose: 12.5 mg Docusate Sodium (Colace -) 100 mg PO TID [facility] Last Admin: 09/13/18 05:36 Dose: 100 mg IV Flush (Vu-Cath Flush) 10 ml IVPUSH PRN PRN PRN Reason: protocol, patency maintenance Last Admin: 09/02/18 06:16 Dose: 10 ml IV Flush (Vu-Cath Flush) 10 ml IVPUSH PRN PRN PRN Reason: FLUSH Last Admin: 09/02/18 18:50 Dose: 10 ml Metronidazole (Flagyl 500mg Premixed Ivpb -) 500 mg in 100 mls @ 100 mls/hr IVPB Q8H-IV [facility] Last Admin: 09/13/18 09:19 Dose: 100 mls/hr Ceftriaxone Sodium 1 gm/ (Dextrose) 50 mls @ 200 mls/hr IVPB DAILY [facility]; Protocol Last Admin: 09/13/18 09:18 Dose: 200 mls/hr Sodium Chloride (Normal Saline -) 1,000 mls @ 60 mls/hr IV ASDIR [facility] Last Admin: 09/13/18 09:19 Dose: 60 mls/hr Miscellaneous (Duragesic Patch Waste) 1 each TD PRN PRN PRN Reason: PAIN Morphine Sulfate (Morphine Sulfate) 2 mg IVPUSH Q8H PRN PRN Reason: PAIN LEVEL 7 - 10 Pantoprazole Sodium (Protonix -) 40 mg PO DAILY [facility] Last Admin: 09/13/18 09:18 Dose: 40 mg Polyethylene Glycol (Miralax (For Daily Use) -) 17 gm PO DAILY [facility] Last Admin: 09/13/18 09:19 Dose: Not Given CBC, BMP 09/13/18 06:00 09/13/18 06:00 Physical Exam Awake/ comfortable S1 S2 RRR Lungs decreased at bases Abd - soft, NT, Colostomy functioning Ext- left lower extremity - dressing + PLAN stable continue present care abx per i/d off dialysis now RT finished PT- daily oob - chair transfuse prn will follow discussed with nursing staff also today. will discuss with oncology Problem List - Problems (1) Neuropathy Code(s): G62.9 - POLYNEUROPATHY, UNSPECIFIED (2) Sciatica of left side Code(s): M54.32 - SCIATICA, LEFT SIDE (3) Adenocarcinoma Code(s): C80.1 - MALIGNANT (PRIMARY) NEOPLASM, UNSPECIFIED (4) Hypertension Code(s): I10 - ESSENTIAL (PRIMARY) HYPERTENSION (5) Old cerebrovascular accident (CVA) without late effect Code(s): Z86.73 - PRSNL HX OF TIA (TIA), AND CEREB INFRC W/O RESID DEFICITS
[2018-09-13 12:21] LABS: ANISOCYTOSIS 3+; MACROCYTOSIS 0; PLATELET ESTIMATE NORMAL
[2018-09-13] MEDS: MORPHINE SULFATE 2 MG/ML VIAL IVPUSH PRN ×2 (13:45→21:17)
[2018-09-13] MEDS ORDERED: INSULIN (NOVOLOG) ASPART 100 UNITS/ML 10ML VIAL ONE (17:51)
--- NOTE | 2018-09-13 17:58 | PN ---
Progress Note (short form) - Note Progress Note: Patient seen in follow up. No new complaints. Inpatient Meds reviewed. Current Medications Generic Name Dose Route Start Last Admin Trade Name Freq PRN Reason Stop Dose Admin Acetaminophen 650 mg 08/23/18 14:35 09/12/18 17:36 Tylenol - PO 650 mg Q6H PRN Administration FEVER Carvedilol 12.5 mg 08/16/18 22:00 09/13/18 09:18 Coreg - PO 12.5 mg BID AJ Administration Docusate Sodium 100 mg 08/16/18 22:00 09/13/18 13:40 Colace - PO Not Given TID AJ IV Flush 10 ml 08/18/18 22:39 09/02/18 06:16 Vu-Cath Flush IVPUSH 10 ml PRN PRN Administration protocol, patency maintenance IV Flush 10 ml 08/22/18 13:46 09/02/18 18:50 Vu-Cath Flush IVPUSH 10 ml PRN PRN Administration FLUSH Metronidazole 500 mg in 100 mls @ 100 mls/hr 08/27/18 18:00 09/13/18 17:21 Flagyl 500mg Premixed Ivpb - IVPB 100 mls/hr Q8H-IV AJ Administration Ceftriaxone Sodium 1 gm/ 50 mls @ 200 mls/hr 09/04/18 10:00 09/13/18 09:18 Dextrose IVPB 200 mls/hr DAILY AJ Administration Protocol Sodium Chloride 1,000 mls @ 60 mls/hr 09/12/18 08:45 09/13/18 09:19 Normal Saline - IV 60 mls/hr ASDIR AJ Administration Miscellaneous 1 each 08/26/18 18:51 Duragesic Patch Waste TD PRN PRN PAIN Morphine Sulfate 2 mg 09/13/18 12:12 09/13/18 13:45 Morphine Sulfate IVPUSH 2 mg Q8H PRN Administration PAIN LEVEL 7 - 10 Pantoprazole Sodium 40 mg 08/17/18 10:00 09/13/18 09:18 Protonix - PO 40 mg DAILY AJ Administration Polyethylene Glycol 17 gm 08/19/18 10:00 09/13/18 09:19 Miralax (For Daily Use) - PO Not Given DAILY AJ On Examination: Last Vital Signs Temp Pulse Resp BP Pulse Ox 98.2 F 69 20 132/69 98 09/13/18 17:13 09/13/18 17:13 09/13/18 17:13 09/13/18 17:13 09/13/18 09:00 General: In no acute distress, lying comfortably in bed. Extremities: No pallor or icterus. No palpable lymphadenopathy. LLE compression dressing - edema distal to dressing. CVS: S1, S2, regular, no gallop or murmur. Chest: good air entry bilaterally, clear Abdomen: Non-distended, non-tender, no palpable organomegaly. Neuro: Alert, oriented, non-focal. Labs: CBC, BMP 09/13/18 06:00 09/13/18 06:00 Assessment. 48 y/o with metastatic rectal cancer BRAF mutated/KRAS wild type/ MSI stable, with liver/lung mets, s/p surgery, ON FOLFOX/avastin, recent oxaliplatin neuropathy and had been on 5-FU/leucovorin/avastin, with progression Recurrent 6 cm pelvic mass encroaching sciatic foramen, with severe pain s/p RT to pelvic mass, with improvement in pain Has begun single agent irinotecan.
[2018-09-14] MEDS: DOCUSATE SODIUM 100 MG CAPSULE (FP) PO SCH ×3 (06:16→22:54)
[2018-09-14 08:02] LABS: BASO % 0.1 % (0-2.0); HEMATOCRIT 21.4 % (35.4-49); HEMOGLOBIN 7.3 GM/dL (11.7-16.9); MCH 28.7 pg (25.7-33.7); MCHC 34.3 g/dl (32.0-35.9); MEAN CELL VOLUME 83.7 fl (80-96); MEAN PLT VOLUME 8.4 fl (7.5-11.1); MONO % 6.3 % (3.8-10.2); NEUT % 90.6 % (42.8-82.8); PLATELET COUNT 260 K/MM3 (134-434); RBC 2.56 M/mm3 (4.00-5.60); WHITE BLOOD COUNT 9.2 K/mm3 (4.0-10.0)
[2018-09-14 08:06] LABS: ALK PHOS 981 U/L (45-117); ANION GAP 8 MMOL/L (8-16); BILIRUBIN,TOTAL 0.7 mg/dL (0.2-1); BLOOD UREA NITROGEN 34 mg/dL (7-18); CALCIUM 7.1 mg/dL (8.5-10.1); CHLORIDE 106 mmol/L (98-107); CO2 25 mmol/L (21-32); CREATININE 1.2 mg/dL (0.55-1.3); GLUCOSE,RANDOM 79 mg/dL (74-106); POTASSIUM 3.9 mmol/L (3.5-5.1); SGOT/AST 107 U/L (15-37); SGPT/ALT 23 U/L (13-61); SODIUM 139 mmol/L (136-145); TOT PROT 4.4 g/dl (6.4-8.2)
[2018-09-14] MEDS ORDERED: cefTRIAXone SODIUM 1 GM VIAL ONE (09:08)
[2018-09-14] MEDS ORDERED: DEXTROSE 5%-WATER - 50 ML IVPB ONE (09:08)
[2018-09-14] MEDS: CEFTRIAXONE 1 GM in DEXTROSE 5%-WATER - 50 ML IVPB SCH (09:20)
[2018-09-14] MEDS: PANTOPRAZOLE 40 MG TABLET (FP) PO SCH (09:20)
[2018-09-14] MEDS: ACETAMINOPHEN 325 MG TABLET (FP) PO PRN (09:20)
[2018-09-14] MEDS: CARVEDILOL 12.5 MG TABLET (FP) PO SCH ×2 (09:20→22:53)
[2018-09-14] MEDS: POLYETHYLENE GLYCOL 3350 119 GM BTL PO SCH (09:21)
[2018-09-14] MEDS: SODIUM CHLORIDE 1,000 ML IV SCH (09:21)
--- NOTE | 2018-09-14 10:00 | PN ---
Progress Note (short form) - Note Progress Note: Renal follow up for ISMAEL Pt seen and examined at the bedside awake and alert no acute complaints Vital Signs Temperature 98.4 F 09/13/18 22:00 Pulse Rate 65 09/13/18 22:00 Respiratory Rate 20 09/13/18 22:00 Blood Pressure 135/90 09/13/18 22:00 O2 Sat by Pulse Oximetry (%) 98 09/13/18 20:23 NAD awake and alert neck supple no JVD trace edema in Le 09/14/18 06:15 09/14/18 06:15 Current Medications Acetaminophen (Tylenol -) 650 mg PO Q6H PRN PRN Reason: FEVER Last Admin: 09/14/18 09:20 Dose: 650 mg Carvedilol (Coreg -) 12.5 mg PO BID AJ Last Admin: 09/14/18 09:20 Dose: 12.5 mg Docusate Sodium (Colace -) 100 mg PO TID AJ Last Admin: 09/14/18 06:16 Dose: Not Given IV Flush (Vu-Cath Flush) 10 ml IVPUSH PRN PRN PRN Reason: protocol, patency maintenance Last Admin: 09/02/18 06:16 Dose: 10 ml IV Flush (Vu-Cath Flush) 10 ml IVPUSH PRN PRN PRN Reason: FLUSH Last Admin: 09/02/18 18:50 Dose: 10 ml Metronidazole (Flagyl 500mg Premixed Ivpb -) 500 mg in 100 mls @ 100 mls/hr IVPB Q8H-IV AJ Last Admin: 09/14/18 09:20 Dose: 100 mls/hr Ceftriaxone Sodium 1 gm/ (Dextrose) 50 mls @ 200 mls/hr IVPB DAILY AJ; Protocol Last Admin: 09/14/18 09:20 Dose: 200 mls/hr Sodium Chloride (Normal Saline -) 1,000 mls @ 60 mls/hr IV ASDIR AJ Last Admin: 09/14/18 09:21 Dose: Not Given Miscellaneous (Duragesic Patch Waste) 1 each TD PRN PRN PRN Reason: PAIN Morphine Sulfate (Morphine Sulfate) 2 mg IVPUSH Q8H PRN PRN Reason: PAIN LEVEL 7 - 10 Last Admin: 09/13/18 21:17 Dose: 2 mg Pantoprazole Sodium (Protonix -) 40 mg PO DAILY [facility] Last Admin: 09/14/18 09:20 Dose: 40 mg Polyethylene Glycol (Miralax (For Daily Use) -) 17 gm PO DAILY [facility] Last Admin: 09/14/18 09:21 Dose: Not Given 48 year old gentleman with hx of Colon Ca on Chemo, Hypertension, CVA who presented with severe back pain and noted to develop ISMAEL during the hospital course. #Progressive worsening of renal function with decreasing urine output in setting of gram negative bactermiea/sepsis (urine Na very low indicating preserved tubular function, Urine Eos pending, no hydronephrosis seen on US) requiring HD #Anion gap metabolic acidosis #Gram negative bacteremia #Metastatic colon Ca Renal function remains stable pt is non-oliguric and edema in resolving can discontinue IVF if pt is tolerating an oral diet trend renal function and electrolytes daily continue abx as per DIVINA Pulido DO
--- NOTE | 2018-09-14 13:59 | PN ---
Progress Note (short form) - Note Progress Note: pt seen/ examined. comfortable denies pain family at bedside feels weak , otherwise ok in good spirits Vital Signs Temp 98.2 F 09/14/18 13:20 Pulse 83 09/14/18 13:20 Resp 20 09/14/18 13:20 BP 125/96 09/14/18 13:20 Pulse Ox 98 09/13/18 20:23 Intake & Output 09/13/18 09/14/18 09/14/18 23:59 11:59 23:59 Intake Total 1560 730 Output Total 950 200 Balance 610 530 Intake: IV 960 480 Normal Saline - 1,000 ml 720 @ 60 mls/hr IV ASDIR AJ Rx#:[id number] saline lock 240 480 IVPB 150 100 Oral 450 150 Output: Urine 950 200 Void 950 200 Other: Voiding Method Urinal Urinal Bowel Movement Yes Active Medications Acetaminophen (Tylenol -) 650 mg PO Q6H PRN PRN Reason: FEVER Last Admin: 09/14/18 09:20 Dose: 650 mg Carvedilol (Coreg -) 12.5 mg PO BID [facility] Last Admin: 09/14/18 09:20 Dose: 12.5 mg Docusate Sodium (Colace -) 100 mg PO TID AJ Last Admin: 09/14/18 13:31 Dose: Not Given Furosemide (Lasix Injection -) 20 mg IVPUSH ONCE ONE Stop: 09/14/18 13:59 IV Flush (Vu-Cath Flush) 10 ml IVPUSH PRN PRN PRN Reason: protocol, patency maintenance Last Admin: 09/02/18 06:16 Dose: 10 ml IV Flush (Vu-Cath Flush) 10 ml IVPUSH PRN PRN PRN Reason: FLUSH Last Admin: 09/02/18 18:50 Dose: 10 ml Metronidazole (Flagyl 500mg Premixed Ivpb -) 500 mg in 100 mls @ 100 mls/hr IVPB Q8H-IV AJ Last Admin: 09/14/18 09:20 Dose: 100 mls/hr Ceftriaxone Sodium 1 gm/ (Dextrose) 50 mls @ 200 mls/hr IVPB DAILY AJ; Protocol Last Admin: 09/14/18 09:20 Dose: 200 mls/hr Sodium Chloride (Normal Saline -) 1,000 mls @ 60 mls/hr IV ASDIR [facility] Last Admin: 09/14/18 09:21 Dose: Not Given Miscellaneous (Duragesic Patch Waste) 1 each TD PRN PRN PRN Reason: PAIN Morphine Sulfate (Morphine Sulfate) 2 mg IVPUSH Q8H PRN PRN Reason: PAIN LEVEL 7 - 10 Last Admin: 09/13/18 21:17 Dose: 2 mg Pantoprazole Sodium (Protonix -) 40 mg PO DAILY [facility] Last Admin: 09/14/18 09:20 Dose: 40 mg Polyethylene Glycol (Miralax (For Daily Use) -) 17 gm PO DAILY [facility] Last Admin: 09/14/18 09:21 Dose: Not Given CBC, BMP 09/14/18 06:15 09/14/18 06:15 Physical Exam Awake/ comfortable. S1 S2 RRR Lungs decreased at bases . Abd - soft, NT, Colostomy functioning Ext- left lower extremity - dressing + PLAN stable continue present care abx per i/d off dialysis now RT finished PT- daily oob - chair transfuse today will follow discussed with nursing staff also today. Problem List - Problems (1) Neuropathy Code(s): G62.9 - POLYNEUROPATHY, UNSPECIFIED (2) Sciatica of left side Code(s): M54.32 - SCIATICA, LEFT SIDE (3) Adenocarcinoma Code(s): C80.1 - MALIGNANT (PRIMARY) NEOPLASM, UNSPECIFIED (4) Hypertension Code(s): I10 - ESSENTIAL (PRIMARY) HYPERTENSION (5) Old cerebrovascular accident (CVA) without late effect Code(s): Z86.73 - PRSNL HX OF TIA (TIA), AND CEREB INFRC W/O RESID DEFICITS
--- NOTE | 2018-09-14 16:13 | PN ---
Progress Note (short form) - Note Progress Note: Patient seen in follow up. No new complaints. L leg redressed - feels better. Inpatient Meds reviewed. Current Medications Acetaminophen (Tylenol -) 650 mg PO Q6H PRN PRN Reason: FEVER Last Admin: 09/14/18 09:20 Dose: 650 mg Carvedilol (Coreg -) 12.5 mg PO BID [facility] Last Admin: 09/14/18 09:20 Dose: 12.5 mg Docusate Sodium (Colace -) 100 mg PO TID [facility] Last Admin: 09/14/18 13:31 Dose: Not Given Furosemide (Lasix Injection -) 20 mg IVPUSH ONCE ONE Stop: 09/14/18 13:59 IV Flush (Vu-Cath Flush) 10 ml IVPUSH PRN PRN PRN Reason: protocol, patency maintenance Last Admin: 09/02/18 06:16 Dose: 10 ml IV Flush (Vu-Cath Flush) 10 ml IVPUSH PRN PRN PRN Reason: FLUSH Last Admin: 09/02/18 18:50 Dose: 10 ml Metronidazole (Flagyl 500mg Premixed Ivpb -) 500 mg in 100 mls @ 100 mls/hr IVPB Q8H-IV AJ Last Admin: 09/14/18 09:20 Dose: 100 mls/hr Ceftriaxone Sodium 1 gm/ (Dextrose) 50 mls @ 200 mls/hr IVPB DAILY AJ; Protocol Last Admin: 09/14/18 09:20 Dose: 200 mls/hr Sodium Chloride (Normal Saline -) 1,000 mls @ 60 mls/hr IV ASDIR AJ Last Admin: 09/14/18 09:21 Dose: Not Given Miscellaneous (Duragesic Patch Waste) 1 each TD PRN PRN PRN Reason: PAIN Morphine Sulfate (Morphine Sulfate) 2 mg IVPUSH Q8H PRN PRN Reason: PAIN LEVEL 7 - 10 Last Admin: 09/13/18 21:17 Dose: 2 mg Pantoprazole Sodium (Protonix -) 40 mg PO DAILY [facility] Last Admin: 09/14/18 09:20 Dose: 40 mg Polyethylene Glycol (Miralax (For Daily Use) -) 17 gm PO DAILY [facility] Last Admin: 09/14/18 09:21 Dose: Not Given On examination: Last Vital Signs Temp Pulse Resp BP Pulse Ox 98.2 F 83 20 125/96 98 09/14/18 13:20 09/14/18 13:20 09/14/18 13:20 09/14/18 13:20 09/13/18 20:23 General: In no acute distress, lying comfortably in bed. Extremities: No pallor or icterus. No palpable lymphadenopathy. LLE dressing - edema distal to dressing improved compared to yesterday CVS: S1, S2, regular, no gallop or murmur. Chest: good air entry bilaterally, clear Abdomen: Non-distended, non-tender, no palpable organomegaly. Neuro: Alert, oriented, non-focal. Labs: CBC, BMP 09/14/18 06:15 09/14/18 06:15 Assessment. 48 y/o with metastatic rectal cancer BRAF mutated/KRAS wild type/ MSI stable, with liver/lung mets, s/p surgery, ON FOLFOX/avastin, recent oxaliplatin neuropathy and had been on 5-FU/leucovorin/avastin, with progression Recurrent 6 cm pelvic mass encroaching sciatic foramen, with severe pain s/p RT to pelvic mass, with improvement in pain Has begun single agent irinotecan.
[2018-09-15] MEDS ORDERED: FUROSEMIDE 40 MG/4 ML INJECTABLE VIAL IVPUSH ONE (02:30)
[2018-09-15] MEDS: DOCUSATE SODIUM 100 MG CAPSULE (FP) PO SCH ×4 (06:10→21:48)
[2018-09-15 07:10] LABS: BASO % 0.1 % (0-2.0); EOS % 0.1 % (0-4.5); HEMATOCRIT 24.8 % (35.4-49); HEMOGLOBIN 8.2 GM/dL (11.7-16.9); LYMPH % 2.5 % (8-40); MCH 27.4 pg (25.7-33.7); MCHC 32.8 g/dl (32.0-35.9); MEAN CELL VOLUME 83.4 fl (80-96); MONO % 2.5 % (3.8-10.2); NEUT % 94.8 % (42.8-82.8); PLATELET COUNT 202 K/MM3 (134-434); RBC 2.98 M/mm3 (4.00-5.60); RDW 18.3 % (11.9-15.9); WHITE BLOOD COUNT 9.3 K/mm3 (4.0-10.0)
[2018-09-15 08:08] LABS: ALK PHOS 1029 U/L (45-117); ANION GAP 7 MMOL/L (8-16); BLOOD UREA NITROGEN 32 mg/dL (7-18); CALCIUM 7.1 mg/dL (8.5-10.1); CHLORIDE 105 mmol/L (98-107); CO2 24 mmol/L (21-32); CREATININE 1.1 mg/dL (0.55-1.3); GLUCOSE,RANDOM 85 mg/dL (74-106); SGOT/AST 120 U/L (15-37); SGPT/ALT 30 U/L (13-61); SODIUM 137 mmol/L (136-145); TOT PROT 4.5 g/dl (6.4-8.2)
[2018-09-15] MEDS ORDERED: DEXTROSE 5%-WATER - 50 ML IVPB ONE (09:03)
[2018-09-15] MEDS ORDERED: cefTRIAXone SODIUM 1 GM VIAL ONE (09:03)
[2018-09-15] MEDS: CARVEDILOL 12.5 MG TABLET (FP) PO SCH ×2 (09:11→21:42)
[2018-09-15] MEDS: CEFTRIAXONE 1 GM in DEXTROSE 5%-WATER - 50 ML IVPB SCH (09:11)
[2018-09-15] MEDS: PANTOPRAZOLE 40 MG TABLET (FP) PO SCH (09:11)
[2018-09-15] MEDS: SODIUM CHLORIDE 1,000 ML IV SCH (09:18)
[2018-09-15] MEDS: POLYETHYLENE GLYCOL 3350 119 GM BTL PO SCH (09:18)
--- NOTE | 2018-09-15 11:27 | PN ---
Progress Note, Physician History of Present Illness: Awake and alert. Conversant. No complaints Afebrile WBC WNL Wound c/s E fergusonii - Current Medication List Current Medications: Active Medications Acetaminophen (Tylenol -) 650 mg PO Q6H PRN PRN Reason: FEVER Last Admin: 09/14/18 09:20 Dose: 650 mg Carvedilol (Coreg -) 12.5 mg PO BID [facility] Last Admin: 09/15/18 09:11 Dose: 12.5 mg Docusate Sodium (Colace -) 100 mg PO TID [facility] Last Admin: 09/15/18 06:10 Dose: Not Given IV Flush (Vu-Cath Flush) 10 ml IVPUSH PRN PRN PRN Reason: protocol, patency maintenance Last Admin: 09/02/18 06:16 Dose: 10 ml IV Flush (Vu-Cath Flush) 10 ml IVPUSH PRN PRN PRN Reason: FLUSH Last Admin: 09/02/18 18:50 Dose: 10 ml Metronidazole (Flagyl 500mg Premixed Ivpb -) 500 mg in 100 mls @ 100 mls/hr IVPB Q8H-IV AJ Last Admin: 09/15/18 10:17 Dose: 100 mls/hr Ceftriaxone Sodium 1 gm/ (Dextrose) 50 mls @ 200 mls/hr IVPB DAILY [facility]; Protocol Last Admin: 09/15/18 09:11 Dose: 200 mls/hr Sodium Chloride (Normal Saline -) 1,000 mls @ 60 mls/hr IV ASDIR [facility] Last Admin: 09/15/18 09:18 Dose: 60 mls/hr Miscellaneous (Duragesic Patch Waste) 1 each TD PRN PRN PRN Reason: PAIN Morphine Sulfate (Morphine Sulfate) 2 mg IVPUSH Q8H PRN PRN Reason: PAIN LEVEL 7 - 10 Last Admin: 09/13/18 21:17 Dose: 2 mg Pantoprazole Sodium (Protonix -) 40 mg PO DAILY [facility] Last Admin: 09/15/18 09:11 Dose: 40 mg Polyethylene Glycol (Miralax (For Daily Use) -) 17 gm PO DAILY [facility] Last Admin: 09/15/18 09:18 Dose: Not Given - Objective Vital Signs: Vital Signs Temperature 98.7 F 09/15/18 10:00 Pulse Rate 96 H 09/15/18 10:00 Respiratory Rate 20 09/15/18 10:00 Blood Pressure 136/95 09/15/18 10:00 O2 Sat by Pulse Oximetry (%) 96 09/15/18 09:00 Constitutional: Yes: No Distress Eyes: Yes: Conjunctiva Clear Cardiovascular: Yes: Regular Rate and Rhythm, S1, S2 Respiratory: Yes: CTA Bilaterally Gastrointestinal: Yes: Normal Bowel Sounds, Other (+ ostomy). No: Tenderness Extremities: Yes: Other (dressing in place L LE) Edema: Yes Integumentary: Yes: Other (port site no erythema/ tenderness) Labs: CBC, BMP 09/15/18 06:30 09/15/18 06:30 Assessment/Plan Soft tissue abscess L calf s/p I&D Anaerobic bactermia, likely GI source Recurrent fever resolved Metastatic ca Renal failure Substitute Augmentin 875mg po bid x 7d
--- NOTE | 2018-09-15 12:15 | DS ---
Physical Examination Vital Signs: Vital Signs Temperature 99 F 09/15/18 10:00 Pulse Rate 96 H 09/15/18 10:00 Respiratory Rate 20 09/15/18 10:00 Blood Pressure 136/95 09/15/18 10:00 O2 Sat by Pulse Oximetry (%) 96 09/15/18 09:00 Findings/Remarks: comfortable no complains Constitutional: Yes: No Distress, Calm Eyes: Yes: Conjunctiva Clear Neck: Yes: Supple Cardiovascular: Yes: Regular Rate and Rhythm Respiratory: Yes: CTA Bilaterally Gastrointestinal: Yes: Soft, Other (+ colostomy) Edema: No Wound/Incision: Yes: Dressing Dry and Intact Neurological: Yes: Alert Psychiatric: Yes: Alert Labs: CBC, BMP 09/15/18 06:30 09/15/18 06:30 Discharge Summary Reason For Visit: SCIATICA OF LEFT SIDE Current Active Problems Calf abscess (Acute) Fever (Acute) Intractable back pain (Acute) Metastatic colon cancer to liver (Acute) Neoplasm related pain (Acute) Neuropathy (Acute) Sciatica of left side (Acute) Hospital Course: admitted for left leg pain In Summary --As mentioned in oncology notes-- 48 y/o with metastatic rectal cancer BRAF mutated/KRAS wild type/ MSI stable, with liver/lung mets, s/p surgery, ON FOLFOX/avastin, recent oxaliplatin neuropathy and had been on 5-FU/leucovorin/avastin, with progression Recurrent 6 cm pelvic mass encroaching sciatic foramen, with severe pain s/p RT to pelvic mass, with improvement in pain . Has begun single agent irinotecan. also has left lower extremity abscess-- s/p i/d-- Viviane Mccullough Now stable and better was transfused yesterday will give another unit today overall stable now for str condition stable but gaurded . will d/c later today to custodial for str-- once cleared by oncology-- will be following later today discussed with nursing staff and pillowcase turner today meds reconcilled local care Augmentin x 7 days Discussed with i/d also f/u with oncology as advised Condition: Improved - Instructions Diet, Activity, Other Instructions: Postoperative instructions: You had a incision and drainage of left calf abscess on 09/05/[address] Frank Avila of [facility]. Dressing: Daily Dressing change Activity: Resume your usual activities gradually, but no heavy exertion or lifting more than 10-15 pounds for 4-6 weeks. Eat lightly at first, but advance to your usual diet as tolerated. Pain: For pain, you may use and alternate Tylenol (acetaminophen) 1-2 pills and/ or ibuprofen 200 mg (1-3 pills) every 6 hours each as needed; this means that you can take one OR the other at 3-hour intervals. If you are prescribed a Tylenol/narcotic combination for severe pain, use it instead of plain Tylenol as needed and switch back when your pain starts decreasing. Do not take more than 4000 mg of acetaminophen in a day. Take medications as prescribed or indicated on the labeling. Follow-up: Call Dr. Avila[facility] office at [facility] call [phone] to make your postop appointment (Saturday in approximately 2 weeks after surgery as advised). Clinic is held in the [facility] fifth floor ([address]) of [facility]. Call the office if you have: * increasing pain not responsive to pain medication * fever of 101F or higher * unusual or increasing bleeding or drainage from wounds * increasing redness or swelling at wound sites Also, see your primary medical doctor within 1-2 weeks. Disposition: LONGTERM FACILITY - Home Medications Comprehensive Discharge Medication List: Ambulatory Orders Carvedilol [Coreg -] 12.5 mg PO BID #28 tablet 09/18/16 Acetaminophen [Tylenol .Regular Strength -] 500 mg PO Q6H PRN #0 tablet Amox-Tr/K Cl [Augmentin - 875Mg Tablet] 1 tab PO BID 7 Days #14 tablet 09/15/18 Docusate Sodium [Colace -] 100 mg PO TID capsule 09/15/18 Fentanyl Patch Waste [Duragesic Patch Waste] 1 each TD PRN PRN each 09/15/18 Oxycodone HCl 10 mg PO BID PRN #30 tablet MDD 2 09/15/18 Pantoprazole Sodium [Protonix -] 40 mg PO DAILY tablet.ec 09/15/18 Vu-Cath Flush [Vu-Cath Flush -] 10 ml IVPUSH PRN PRN ml 09/15/18
[2018-09-15 12:25] LABS: ACANTHOCYTES 0; ANISOCYTOSIS 0; HELMET CELLS 0; HOWELL-JOLLY BODIES 0; MACROCYTOSIS 0; OVALOCYTE 0; PLATELET ESTIMATE NORMAL; ROULEAU 0; SICKELED CELLS 0; TARGET CELLS 0; TEAR DROP CELLS 0; TOXIC GRANULATION 0
--- NOTE | 2018-09-15 12:47 | PN ---
Progress Note (short form) - Note Progress Note: Renal follow up for ISMAEL Pt seen and examined at the bedside awake and alert no acute complaints tolerating diet, making urine Vital Signs Temperature 99 F 09/15/18 10:00 Pulse Rate 96 H 09/15/18 10:00 Respiratory Rate 20 09/15/18 10:00 Blood Pressure 136/95 09/15/18 10:00 O2 Sat by Pulse Oximetry (%) 96 09/15/18 09:00 NAD awake and alert neck supple no JVD trace edema in Le CBC, BMP 09/15/18 06:30 09/15/18 06:30 Current Medications Acetaminophen (Tylenol -) 650 mg PO Q6H PRN PRN Reason: FEVER Last Admin: 09/14/18 09:20 Dose: 650 mg Amlodipine Besylate (Norvasc -) 5 mg PO DAILY [facility] Carvedilol (Coreg -) 12.5 mg PO BID [facility] Last Admin: 09/15/18 09:11 Dose: 12.5 mg Docusate Sodium (Colace -) 100 mg PO TID [facility] Last Admin: 09/15/18 06:10 Dose: Not Given IV Flush (Vu-Cath Flush) 10 ml IVPUSH PRN PRN PRN Reason: protocol, patency maintenance Last Admin: 09/02/18 06:16 Dose: 10 ml IV Flush (Vu-Cath Flush) 10 ml IVPUSH PRN PRN PRN Reason: FLUSH Last Admin: 09/02/18 18:50 Dose: 10 ml Sodium Chloride (Normal Saline -) 1,000 mls @ 60 mls/hr IV ASDIR [facility] Last Admin: 09/15/18 09:18 Dose: 60 mls/hr Miscellaneous (Duragesic Patch Waste) 1 each TD PRN PRN PRN Reason: PAIN Morphine Sulfate (Morphine Sulfate) 2 mg IVPUSH Q8H PRN PRN Reason: PAIN LEVEL 7 - 10 Last Admin: 09/13/18 21:17 Dose: 2 mg Pantoprazole Sodium (Protonix -) 40 mg PO DAILY [facility] Last Admin: 09/15/18 09:11 Dose: 40 mg Polyethylene Glycol (Miralax (For Daily Use) -) 17 gm PO DAILY [facility] Last Admin: 09/15/18 09:18 Dose: Not Given 48 year old gentleman with hx of Colon Ca on Chemo, Hypertension, CVA who presented with severe back pain and noted to develop ISMAEL during the hospital course. #Progressive worsening of renal function with decreasing urine output in setting of gram negative bactermiea/sepsis (urine Na very low indicating preserved tubular function, Urine Eos pending, no hydronephrosis seen on US) requiring HD #Anion gap metabolic acidosis #Gram negative bacteremia #Metastatic colon Ca Renal function remains stable pt is non-oliguric and edema in resolving discontinue IVF if pt is tolerating an oral diet trend renal function and electrolytes daily Sami Pulido DO
[2018-09-15] MEDS: amLODIPine BESYLATE 5 MG TABLET (FP) PO SCH (12:53)
[2018-09-15] MEDS: MORPHINE SULFATE 2 MG/ML VIAL IVPUSH PRN (13:54)
[2018-09-15] MEDS ORDERED: TBO-FILGRASTIM 480 MCG/0.8 ML DISP.SYRIN SQ ONE (17:00)
--- NOTE | 2018-09-15 18:48 | PN ---
Progress Note (short form) - Note Progress Note: PAtient seen and examined Completed RT Feels Ok Denies any specific complaints AFVSS Cor: RSR, No murmurs, No gallops Lungs: Clear to P&A Abd: Soft, Normal bowel sounds, No organomegaly Ext:LLE edema/dressing scrotal edema Labs/meds reviewed A/P 48 y/o with metastatic rectal cancer BRAF mutated/KRAS wild type/ MSIstable, with liver/lung mets, s/p surgery, ON FOLFOX/avastin, recent oxaliplatin neuropathy and had been on 5-FU/leucovorin/avastin, recent scans on 08/07 showing progressive disease, comes in with left leg severe pain of 1 week duration. MRI T/L spine show no cord compression Recurrent 6 cm pelvic mass encroaching sciatic foramen,liver mets, lung mets s/p RT to pelvic mass s/p [id number] 1unit prbcs granix [facility]
[2018-09-15] MEDS ORDERED: MORPHINE SULFATE 2 MG/ML VIAL IVPUSH ONE (20:45)
[2018-09-16] MEDS: DOCUSATE SODIUM 100 MG CAPSULE (FP) PO SCH ×2 (05:17→13:33)
--- NOTE | 2018-09-16 09:16 | PN ---
Progress Note (short form) - Note Progress Note: feels well no new issues awaiting authorization from insurance for rehab Vital Signs Temp 99 F 09/16/18 05:46 Pulse 92 H 09/16/18 05:46 Resp 18 09/16/18 05:46 BP 143/99 09/16/18 05:46 Pulse Ox 96 09/15/18 21:00 Intake & Output 09/15/18 09/15/18 09/16/18 11:59 23:59 11:59 Intake Total 150 0 Output Total 600 400 800 Balance -450 -400 -800 Intake: Oral 150 0 Output: Urine 600 400 800 Void 600 400 800 Other: Voiding Method Urinal Urinal Urinal # Unmeasured Voids Void 1 Bowel Movement Yes # Bowel Movements 1 Active Medications Acetaminophen (Tylenol -) 650 mg PO Q6H PRN PRN Reason: FEVER Last Admin: 09/14/18 09:20 Dose: 650 mg Amlodipine Besylate (Norvasc -) 5 mg PO DAILY [facility] Last Admin: 09/15/18 12:53 Dose: 5 mg Carvedilol (Coreg -) 12.5 mg PO BID [facility] Last Admin: 09/15/18 21:42 Dose: 12.5 mg Docusate Sodium (Colace -) 100 mg PO TID [facility] Last Admin: 09/16/18 05:17 Dose: Not Given IV Flush (Vu-Cath Flush) 10 ml IVPUSH PRN PRN PRN Reason: protocol, patency maintenance Last Admin: 09/02/18 06:16 Dose: 10 ml IV Flush (Vu-Cath Flush) 10 ml IVPUSH PRN PRN PRN Reason: FLUSH Last Admin: 09/02/18 18:50 Dose: 10 ml Miscellaneous (Duragesic Patch Waste) 1 each TD PRN PRN PRN Reason: PAIN Morphine Sulfate (Morphine Sulfate) 2 mg IVPUSH Q8H PRN PRN Reason: PAIN LEVEL 7 - 10 Last Admin: 09/15/18 13:54 Dose: 2 mg Pantoprazole Sodium (Protonix -) 40 mg PO DAILY [facility] Last Admin: 09/15/18 09:11 Dose: 40 mg Polyethylene Glycol (Miralax (For Daily Use) -) 17 gm PO DAILY [facility] Last Admin: 09/15/18 09:18 Dose: Not Given Tbo-Filgrastim (Granix -) 480 mcg SQ ONCE ONE Stop: 09/16/18 10:01 CBC, BMP 09/15/18 06:30 09/15/18 06:30 Physical Exam Constitutional: Yes: No Distress, Calm Eyes: Yes: Conjunctiva Clear Neck: Yes: Supple Cardiovascular: Yes: Regular Rate and Rhythm Respiratory: Yes: CTA Bilaterally Gastrointestinal: Yes: Soft, Other (+ colostomy) Edema: No Wound/Incision: Yes: Dressing Dry and Intact Neurological: Yes: Alert Psychiatric: Yes: Alert/ awake a/p stable anticipate d/c today see discharge summary of yesterday Problem List - Problems (1) Neuropathy Code(s): G62.9 - POLYNEUROPATHY, UNSPECIFIED (2) Sciatica of left side Code(s): M54.32 - SCIATICA, LEFT SIDE (3) Adenocarcinoma Code(s): C80.1 - MALIGNANT (PRIMARY) NEOPLASM, UNSPECIFIED (4) Hypertension Code(s): I10 - ESSENTIAL (PRIMARY) HYPERTENSION (5) Old cerebrovascular accident (CVA) without late effect Code(s): Z86.73 - PRSNL HX OF TIA (TIA), AND CEREB INFRC W/O RESID DEFICITS
[2018-09-16] MEDS: POLYETHYLENE GLYCOL 3350 119 GM BTL PO SCH (09:36)
[2018-09-16] MEDS: PANTOPRAZOLE 40 MG TABLET (FP) PO SCH (09:36)
[2018-09-16] MEDS: CARVEDILOL 12.5 MG TABLET (FP) PO SCH (09:36)
[2018-09-16] MEDS: amLODIPine BESYLATE 5 MG TABLET (FP) PO SCH (09:36)
[2018-09-16] MEDS ORDERED: TBO-FILGRASTIM 480 MCG/0.8 ML DISP.SYRIN SQ ONE (10:00)
[2018-09-16] MEDS: MORPHINE SULFATE 2 MG/ML VIAL IVPUSH PRN (13:33)
[2018-09-16 14:26] VITALS: PULSE 93
--- NOTE | 2018-09-16 15:56 | PN ---
Progress Note (short form) - Note Progress Note: Patient seen and examined Offers few complaints Last Vital Signs Temp Pulse Resp BP Pulse Ox 98.5 F 93 H 18 132/89 96 09/16/18 14:58 09/16/18 14:25 09/16/18 14:25 09/16/18 14:25 09/16/18 09:00 HEENT: EZEQUIEL, EOM Intact Oropharynx: No thrush, No mucositis Cor: RSR, No murmurs, No gallops Lungs: Clear to P&A Abd: Soft, Normal bowel sounds, No organomegaly functioning colostomy Ext:LE edema Skin: No rashes, Integument intact CBC, BMP 09/15/18 06:30 09/15/18 06:30 Current Medications Generic Name Dose Route Start Last Admin Trade Name Freq PRN Reason Stop Dose Admin Acetaminophen 650 mg 08/23/18 14:35 09/14/18 09:20 Tylenol - PO 650 mg Q6H PRN Administration FEVER Amlodipine Besylate 5 mg 09/15/18 12:30 09/16/18 09:36 Norvasc - PO 5 mg DAILY AJ Administration Carvedilol 12.5 mg 08/16/18 22:00 09/16/18 09:36 Coreg - PO 12.5 mg BID AJ Administration Docusate Sodium 100 mg 08/16/18 22:00 09/16/18 13:33 Colace - PO 100 mg TID AJ Administration IV Flush 10 ml 08/18/18 22:39 09/02/18 06:16 Vu-Cath Flush IVPUSH 10 ml PRN PRN Administration protocol, patency maintenance IV Flush 10 ml 08/22/18 13:46 09/02/18 18:50 Vu-Cath Flush IVPUSH 10 ml PRN PRN Administration FLUSH Miscellaneous 1 each 08/26/18 18:51 Duragesic Patch Waste TD PRN PRN PAIN Morphine Sulfate 2 mg 09/13/18 12:12 09/16/18 13:33 Morphine Sulfate IVPUSH 2 mg Q8H PRN Administration PAIN LEVEL 7 - 10 Pantoprazole Sodium 40 mg 08/17/18 10:00 09/16/18 09:36 Protonix - PO 40 mg DAILY AJ Administration Polyethylene Glycol 17 gm 08/19/18 10:00 09/16/18 09:36 Miralax (For Daily Use) - PO Not Given DAILY AJ Impression: Metastatic colon ca Chemotherapy - currently irionotecan Anemia Sacral mass - s/p RT Plan : Rehab Outpatient irinotecan if feasible.
[2018-09-16 16:37] VITALS: BP 144/93; TEMP 99.5
== END 2018-09-16 16:45 | DRG 551 ==
LOC: JER 04:58 → JERBED 13:38 → J8W 18:42 → J7W 08-18 18:56
PROVIDERS: ADMIT Internal Medicine; ATTEND Internal Medicine
PROC: 30233N1 Transfusion of Nonautologous Red Blood Cells into Peripheral Vein, Percutaneous Approach (ICD-10-PCS; principal; 2018-08-23)
PROC: 5A1D70Z Performance of Urinary Filtration, Intermittent, Less than 6 Hours Per Day (ICD-10-PCS; 2018-08-29)
PROC: 5A1D70Z Performance of Urinary Filtration, Intermittent, Less than 6 Hours Per Day (ICD-10-PCS; 2018-08-30)
PROC: 5A1D70Z Performance of Urinary Filtration, Intermittent, Less than 6 Hours Per Day (ICD-10-PCS; 2018-09-01)
PROC: 5A1D70Z Performance of Urinary Filtration, Intermittent, Less than 6 Hours Per Day (ICD-10-PCS; 2018-09-02)
PROC: 0Y9J0ZX Drainage of Left Lower Leg, Open Approach, Diagnostic (ICD-10-PCS; 2018-09-05)
DX: M54.32 Sciatica, left side (principal); A41.4 Sepsis due to anaerobes; C20 Malignant neoplasm of rectum; C78.7 Secondary malignant neoplasm of liver and intrahepatic bile duct; C78.00 Secondary malignant neoplasm of unspecified lung; N17.9 Acute kidney failure, unspecified; E87.2 Acidosis; L02.419 Cutaneous abscess of limb, unspecified; M53.3 Sacrococcygeal disorders, not elsewhere classified; I10 Essential (primary) hypertension; E78.5 Hyperlipidemia, unspecified; K59.00 Constipation, unspecified; R63.4 Abnormal weight loss; Z68.26 Body mass index [BMI] 26.0-26.9, adult; I12.9 Hypertensive chronic kidney disease with stage 1 through stage 4 chronic kidney disease, or unspecified chronic kidney disease; N18.9 Chronic kidney disease, unspecified; G62.9 Polyneuropathy, unspecified; M54.9 Dorsalgia, unspecified; M54.16 Radiculopathy, lumbar region; R63.0 Anorexia; R50.9 Fever, unspecified; D50.0 Iron deficiency anemia secondary to blood loss (chronic); R45.1 Restlessness and agitation; G89.3 Neoplasm related pain (acute) (chronic); D63.8 Anemia in other chronic diseases classified elsewhere; S80.822A Blister (nonthermal), left lower leg, initial encounter; Z86.73 Personal history of transient ischemic attack (TIA), and cerebral infarction without residual deficits
CPT/HCPCS: 36415; 36430; 36511; 70450-TC; 71045-TC-FY; 72131-TC; 72146-TC; 72148-TC; 72195-TC; 73700-TC-RT; 74176-TC; 76775-TC; 76870-TC; 80048; 80053; 80074; 81003; 81015; 82140; 82272; 82570; 83516; 83520; 83605; 83735; 84100; 84155; 84156; 84165; 84300; 84540; 85025; 85027; 86038; 86162; 86256; 86593; 86803; 86850; 86900; 86901; 86922; 87040; 87070; 87086; 87186; 87205; 93970-TC; 93971; 93971-TC; 97162-GP; 99282-25; G0480; J0131; J1447; J1644; J2469; J7030; J9206; P9038; P9047; P9058

== ENCOUNTER 2018-10-01 10:08 | Inpatient (IN) | payer BC, OTHER ==
--- NOTE | 2018-10-01 10:11 | PDOC ---
Attending Attestation - Medical Decision Making 10/01/18 14:01 Documentation prepared by Shara Farias, acting as medical laboratory technician for Maria E Ortiz MD 10/01/18 14:01 Dr. Cecile Harris was paged at the office at this time requesting a call back. <Shara Farias - Last Filed: 10/01/18 14:00> - Resident Resident Name: Robert Hurley - ED Attending Attestation I have performed the following: I have examined & evaluated the patient, The case was reviewed & discussed with the resident, I agree w/resident's findings & plan, Exceptions are as noted - HPI HPI: 10/01/18 10:14 Mr Varghese is a 48 yo M, currently at [facility] who presents to the ER via EMS for evaluation Briefly, he has a h/o metastatic rectal cancer with liver/lung mets, s/p surgery previously on several regimens (FOLFOX/avastin complicated by oxaliplatin neuropathy, 5-FU/leucovorin/avastin with progression) now with recurrent 6 cm pelvic mass encroaching sciatic foramen with severe pain s/p RT to pelvic mass with improvement in pain. Pt has now been started on irinotecan. He was sent to the ER for evaluation of - Physicial Exam PE: 10/01/18 10:19 AFVSS, pale appearing Cor: RSR, No murmurs, No gallops Lungs: CTA, no wheezing, no rales Abd: Soft, Normal bowel sounds, ostomy in place, pink and patent, scant stool in ostomy bag Ext: LLE pitting edema - Medical Decision Making 10/01/18 10:18 Will do: Labs, cultures, lactate EKG CXR Will Admit 10/01/18 10:27 EKG - NSR rate of 99 bpm, axis nml, intervals nml, no st elevation, t waves upright 10/01/18 11:33 Laboratory Tests 10/01/18 11:00 WBC 5.9 Hgb 10.1 L MCV 84.9 Plt Count 339 D 10/01/18 13:01 Laboratory Tests 09/15/18 10/01/18 06:30 11:00 Sodium 137 Potassium 4.1 Chloride 105 Carbon Dioxide 25 BUN 32 H 20 H Creatinine 1.1 1.6 H Random Glucose 85 81 LLE DVT Heparin started Admitted to hospitalist <Maria E Ortiz - Last Filed: 10/03/18 07:40>
--- NOTE | 2018-10-01 10:12 | PDOC ---
History of Present Illness - General Stated Complaint: SENT BY PCP FOR CHEMO Time Seen by Provider: 10/01/18 10:12 - History of Present Illness Initial Comments: 10/01/18 10:43 The patient is a 48 year old male with a history of HTN, Metastatic Colon Cancer with lung mets s/p colectomy and colostomy who is sent in by his oncologist for chemotherapy. The patient has been managed on an outpatient basis for his metastatic colon cancer with multiple rounds of different chemotherapies. He notes that he had a wound infection as well and has been feeling more fatigued lately as well. He otherwise denies fevers, chills, SOB, chest, pain, nausea, vomiting, abdominal pain, or changes with urination or bowel movements. Past History - Past Medical History Allergies/Adverse Reactions: Allergies Allergy/AdvReac Type Severity Reaction Status Date / Time shellfish derived Allergy Verified 10/01/18 10:22 Home Medications: Ambulatory Orders Amlodipine Besylate [Norvasc -] 5 mg PO DAILY 10/01/18 Carvedilol [Coreg -] 12.5 mg PO BID 10/01/18 Docusate Sodium [Colace -] 100 mg PO HS 10/01/18 FENTANYL 25mcg PATCH [DURAGESIC 25mcg PATCH -] 1 each TD Q72H 10/01/18 Oxycodone HCl [Oxycodone HCl ER] 10 mg PO BID PRN 10/01/18 Pantoprazole Sodium 40 mg PO DAILY 10/01/18 Anemia: No Asthma: No Cancer: Yes (colon ca with colostomy) Cardiac Disorders: No CVA: No COPD: No CHF: No Dementia: No Diabetes: No GI Disorders: No Disorders: No HTN: Yes Hypercholesterolemia: No Liver Disease: No Seizures: No Thyroid Disease: No - Surgical History Abdominal Surgery: Yes (colon resection with colostomy 2017) Appendectomy: No Cardiac Surgery: No Cholecystectomy: No Lung Surgery: No Neurologic Surgery: No Orthopedic Surgery: Yes (rotater cuff 2016) - Immunization History Immunization Up to Date: Yes - Suicide/Smoking/Psychosocial Hx Smoking History: Never smoked Have you smoked in the past 12 months: No Hx Alcohol Use: No Drug/Substance Use Hx: Yes (Stopped smoking marijuanna about a year ago) Substance Use Type: Marijuana Hx Substance Use Treatment: No Review of Systems - Review of Systems Comments:: 10/01/18 10:48 Constitutional: Fatigue. No fevers, chills, malaise HEENT: No Rhinorrhea, nasal congestion, visual changes Cardiovascular: No chest pain, syncope, palpitations, lightheadedness Respiratory: No Cough, SOB, Hemoptysis, Gastrointestinal: No Abdominal pain, Nausea, Vomiting, Constipation, Diarrhea, Melena Genitourinary: No Dysuria, Frequency, Urgency, Hesitancy, Hematuria, Flank pain Musculoskeletal: No Myalgia, arthralgia Skin: No rashes, itching, bruising, pallor Neurologic: No Headache, Dizziness, Numbness, Weakness, or Tingling Psychiatric: No Hallucinations. No SI or HI *Physical Exam - Physical Exam Comments: 10/01/18 10:48 General Appearance: Nourished. No Apparent Distress HEENT: No Pharyngeal Erythema, Tonsillar Exudate, Tonsillar Erythema Neck: No Cervical Lymphadenopathy Respiratory/Chest: Lungs Clear, Normal Breath Sounds. No Crackles, Rales, Rhonchi, Wheezing Cardiovascular: Regular Rhythm, Regular Rate. No Murmur, Gallops, Rubs Gastrointestinal/Abdominal: Normal Bowel Sounds, Soft. Colostomy in place. No Guarding, Rebound, Tenderness Musculoskeletal: No CVA Tenderness Extremity: 2+ edema noted to the left lower extremity. Normal Capillary Refill Integumentary: Normal Color, Dry, Warm Neurologic: Fully Oriented, Alert, Normal Mood/Affect, Normal Response, Heart Score/ECG Review #1 10/01/18 10:48 Normal sinus Rhythm Prolonged QT QTc 479 HR 99 No Acute Ischemic Changes ED Treatment Course - LABORATORY CBC & Chemistry Diagram: 10/01/18 11:00 10/01/18 11:00 Medical Decision Making - Medical Decision Making 10/01/18 10:49 The patient is a 48 year old male with a history of HTN, Metastatic Colon Cancer with lung mets s/p colectomy and colostomy who is sent in by his oncologist for chemotherapy. Given the patient's history and physical exam, we will obtain a cbc, cmp, blood cultures, ua, lactate, chest plain film, ekg to evaluate further. We will continue to monitor and reassess while here in the ED. 10/01/18 16:31 CBC is unremarkable. CMP demonstrates an elevated alk phos. UA is unremarkable. Chest plain film is unchanged. DVT US of the left lower extremity is positive for DVT as read by our radiologist. We discussed the case with the admitting team who accepted the patient for admission. 10/01/18 18:[address] was obtained to rule out intracranial process and it was unremarkable as read by our radiologist. We will start the patient on a heparin drip for the patient's DVT. *DC/Admit/Observation/Transfer Diagnosis at time of Disposition: Metastatic colon cancer to liver DVT (deep venous thrombosis) Qualifiers: DVT location: lower extremity Affected thrombotic vein of extremity: unspecified vein of extremity Chronicity: unspecified Laterality: unspecified laterality Qualified Code(s): I82.409 - Acute embolism and thrombosis of unspecified deep veins of unspecified lower extremity - Discharge Dispostion Condition at time of disposition: Stable Decision to Admit order: Yes - Referrals - Patient Instructions - Post Discharge Activity
[2018-10-01 11:12] LABS: BASO % 0.8 % (0-2.0); EOS % 0.7 % (0-4.5); HEMATOCRIT 28.9 % (35.4-49); HEMOGLOBIN 10.1 GM/dL (11.7-16.9); LYMPH % 15.5 % (8-40); MCH 29.6 pg (25.7-33.7); MCHC 34.9 g/dl (32.0-35.9); MEAN CELL VOLUME 84.9 fl (80-96); MEAN PLT VOLUME 8.2 fl (7.5-11.1); MONO % 11.9 % (3.8-10.2); NEUT % 71.1 % (42.8-82.8); PLATELET COUNT 339 K/MM3 (134-434); RBC 3.41 M/mm3 (4.00-5.60); WHITE BLOOD COUNT 5.9 K/mm3 (4.0-10.0)
--- NOTE | 2018-10-01 11:42 | EKG ---
Test Reason : Blood Pressure : / mmHG Vent. Rate : 099 BPM Atrial Rate : 099 BPM P-R Int : 140 ms QRS Dur : 082 ms QT Int : 374 ms P-R-T Axes : 022 041 037 degrees QTc Int : 479 ms NORMAL SINUS RHYTHM NONSPECIFIC T WAVE ABNORMALITY PROLONGED QT ABNORMAL ECG WHEN COMPARED WITH ECG OF 08-OCT-2017 01:43, NO SIGNIFICANT CHANGE WAS FOUND Confirmed by TULIO WILKINS MD ([id number]) on 10/01/2018 11:41:43 AM Referred By: Confirmed By:TULIO WILKINS MD
[2018-10-01 12:55] LABS: ALK PHOS 1448 U/L (45-117); ANION GAP 7 MMOL/L (8-16); BILIRUBIN,TOTAL 0.9 mg/dL (0.2-1); BLOOD UREA NITROGEN 20 mg/dL (7-18); CALCIUM 7.3 mg/dL (8.5-10.1); CHLORIDE 105 mmol/L (98-107); CO2 25 mmol/L (21-32); CREATININE 1.6 mg/dL (0.55-1.3); GLUCOSE,RANDOM 81 mg/dL (74-106); POTASSIUM 4.1 mmol/L (3.5-5.1); SGOT/AST 71 U/L (15-37); SGPT/ALT 17 U/L (13-61); SODIUM 137 mmol/L (136-145)
[2018-10-01 15:48] LABS: INR 1.23 (0.83-1.09); PROTHROMBIN TIME (PATIENT) 14.5 SEC (9.7-13.0)
[2018-10-01 15:51] LABS: ACTIVATED PTT 35.4 SECONDS (25.2-36.5)
[2018-10-01] MEDS ORDERED: HEPARIN NA (PORCINE) 5,000 UNITS/ML 1ML VIAL IVPUSH PRN ×2 (18:11)
[2018-10-01] MEDS ORDERED: HEPARIN NA (PORCINE) 5,000 UNITS/ML 1ML VIAL ONE (19:06)
[2018-10-01] MEDS: HEPARIN - 25,000 UNIT in SODIUM CHLORIDE 495 ML IV SCH (19:07)
[2018-10-01] MEDS ORDERED: HEPARIN INFUSION - 25,000 UNITS/500 ML INFUS.BAG IVPB ONE (19:07)
[2018-10-01] MEDS ORDERED: oxyCODONE HCL 10 MG SUSTAINED ACTING TABLET PO PRN (19:21)
[2018-10-01] MEDS ORDERED: fentaNYL 25mcg/hr PATCH.TD72 TD SCH (19:30)
[2018-10-01] MEDS ORDERED: FENTANYL PATCH WASTE TD PRN (19:30)
[2018-10-01] MEDS: DOCUSATE SODIUM 100 MG CAPSULE (FP) PO SCH (22:27)
[2018-10-01] MEDS: CARVEDILOL 12.5 MG TABLET (FP) PO SCH (23:28)
[2018-10-02 06:34] LABS: BASO % 0.8 % (0-2.0); EOS % 0.9 % (0-4.5); HEMATOCRIT 27.2 % (35.4-49); HEMOGLOBIN 8.7 GM/dL (11.7-16.9); LYMPH % 19.4 % (8-40); MCH 27.8 pg (25.7-33.7); MCHC 32.2 g/dl (32.0-35.9); MEAN CELL VOLUME 86.4 fl (80-96); MEAN PLT VOLUME 8.5 fl (7.5-11.1); MONO % 12.3 % (3.8-10.2); NEUT % 66.6 % (42.8-82.8); PLATELET COUNT 277 K/MM3 (134-434); RBC 3.14 M/mm3 (4.00-5.60); RDW 16.9 % (11.9-15.9); WHITE BLOOD COUNT 6.7 K/mm3 (4.0-10.0)
[2018-10-02 06:57] LABS: ALK PHOS 1296 U/L (45-117); ANION GAP 10 MMOL/L (8-16); BILIRUBIN,TOTAL 0.5 mg/dL (0.2-1); BLOOD UREA NITROGEN 28 mg/dL (7-18); CHLORIDE 103 mmol/L (98-107); CO2 24 mmol/L (21-32); CREATININE 2.3 mg/dL (0.55-1.3); GLUCOSE,RANDOM 74 mg/dL (74-106); POTASSIUM 4.3 mmol/L (3.5-5.1); SGOT/AST 76 U/L (15-37); SGPT/ALT 17 U/L (13-61); SODIUM 137 mmol/L (136-145); TOT PROT 4.6 g/dl (6.4-8.2)
[2018-10-02 07:01] LABS: CALCIUM 6.9 mg/dL (8.5-10.1)
[2018-10-02] MEDS ORDERED: SODIUM CHLORIDE 1,000 ML IV SCH (09:30)
[2018-10-02] MEDS ORDERED: amLODIPine BESYLATE 5 MG TABLET (FP) PO SCH (10:00)
--- NOTE | 2018-10-02 10:32 | CONSULT ---
Consult Consult Specialty:: Hematology-Oncology Referred by:: Dr. Hurley Reason for Consultation:: Metastatic Colon Cancer - History of Present Illness Chief Complaint: referred for chemotherapy History of Present Illness: 48 yr old man with metastatic rectal cancer (BRAF mutated/KRAS wild type/ MSI stable, with liver/lung mets) s/p colectomy undergoing chemotherapy complicated by neuropathy and perirectal mass extending through sciatic notch and into piriformis muscle causing severe pain s/p palliative radiation to pelvic mass ( 08/2018) BIBEMS from [facility] for chemo therapy found to have ISMAEL and new left lower leg DVT. overall feels well, eating, drinking, urinating well. colostomy stoma patent. increased mobility of his lower legs since previous admission denies chest pain, fever, cough, shortness of breath, diarrhea, nausea, vomiting. 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: CVA (with dizziness and LLE paresis about 1 year ago which resolved at [facility]) Cardio/Vascular: Yes: HTN, Hyperlipdemia Gastrointestinal: Yes: Cancer, Constipation - Past Surgical History Past Surgical History: Yes: Colostomy - Alcohol/Substance Use Hx Alcohol Use: No History of Substance Use: reports: None - Smoking History Smoking history: Never smoked Have you smoked in the past 12 months: No If you are a former smoker, when did you quit?: 1997 - Social History Usual Living Arrangement: With Spouse ADL: Independent 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 History of Recent Travel: No Home Medications - Allergies Allergies/Adverse Reactions: Allergies Allergy/AdvReac Type Severity Reaction Status Date / Time shellfish derived Allergy Verified 10/01/18 10:22 - Home Medications Home Medications: Ambulatory Orders Amlodipine Besylate [Norvasc -] 5 mg PO DAILY 10/01/18 Carvedilol [Coreg -] 12.5 mg PO BID 10/01/18 Docusate Sodium [Colace -] 100 mg PO HS 10/01/18 FENTANYL 25mcg PATCH [DURAGESIC 25mcg PATCH -] 1 each TD Q72H 10/01/18 Oxycodone HCl [Oxycodone HCl ER] 10 mg PO BID PRN 10/01/18 Pantoprazole Sodium 40 mg PO DAILY 10/01/18 Family Disease History - Family Disease History Family Disease History: CA: Sister ( ovarian cancer in her 30s), Other: Father (CVA, HTN, colon polyps ), Mother (HTN, no polyps on colonoscopy) Review of Systems - Review of Systems Constitutional: denies: Fever, Lethargy Eyes: reports: No Symptoms HENT: reports: Other (dry mouth) Neck: reports: No Symptoms Cardiovascular: reports: No Symptoms Respiratory: reports: No Symptoms Gastrointestinal: reports: No Symptoms Genitourinary: reports: No Symptoms Integumentary: reports: Wound (left medial knee with healing ulceration, scant clear serous discharge, nontender, no erythema, no underlying fluctuance) Neurological: denies: Change in Speech, Confusion, Dizziness Hematology/Lymphatic: denies: Easily Bruised, Excessive Bleeding Physical Exam Vital Signs: Vital Signs Temperature 98.4 F 10/02/18 06:39 Pulse Rate 93 H 10/02/18 06:39 Respiratory Rate 18 10/02/18 06:39 Blood Pressure 85/65 L 10/02/18 06:39 O2 Sat by Pulse Oximetry (%) 100 10/01/18 20:11 Constitutional: Yes: No Distress, Calm Eyes: Yes: Conjunctiva Clear, EOM Intact HENT: Yes: Atraumatic, Normocephalic Neck: Yes: Supple, Trachea Midline. No: Lymphadenopathy Cardiovascular: Yes: Regular Rate and Rhythm, S1, S2 Respiratory: Yes: Regular, CTA Bilaterally Gastrointestinal: Yes: Normal Bowel Sounds, Soft, Other (colostomy intact with brown stool) Extremities: Yes: External Rotation (of left lower leg, 3+ pitting edema from foot to thigh) Edema: Yes Edema: LLE: 3+, RLE: Trace Peripheral Pulses WNL: Yes Neurological: Yes: Alert, Oriented ...Motor Strength: LLE (decr rom at knee/hip and ankle), RLE (wnl) Labs: CBC, BMP 10/02/18 05:00 10/02/18 05:00 Assessment/Plan Laboratory Tests 10/23/17 10/23/17 07:30 07:30 Iron 46 TIBC 137 L Iron Saturation 34 Ferritin 542.390 H 48 yr old man with HTN, metastatic rectal cancer found to have ISMAEL and left lower leg DVT. Problem List HTN - now with tachycardia and hypotension ISMAEL - consult Dr. Pulido, initiated IVF DVT anemia - likely anemia of chronic disease given iron studies in 09/2017 A/P nephrology evaluation of ISMAEL, continue IVF pt appears dry, likely pre-renal continue heparin drip for DVT with initial bridge to coumadin. to start coumadin tonight, goal INR 2-3. repeat INR ordered for the morning ideally would prefer lovenox in pt with malignancy, will need to confirm it will be available at the correction and that renal function will improve. monitor coagulation studies and h/h closely
[2018-10-02 10:56] LABS: INR 1.24 (0.83-1.09); PROTHROMBIN TIME (PATIENT) 14.7 SEC (9.7-13.0)
[2018-10-02] MEDS: CARVEDILOL 12.5 MG TABLET (FP) PO SCH ×2 (11:00→22:10)
--- NOTE | 2018-10-02 11:10 | HP ---
Admitting History and Physical - Primary Care Physician PCP: Sakina Elias - Admission Chief Complaint: DVT left leg History of Present Illness: ER ODETTE__ 10/01/18 10:43 The patient is a 48 year old male with a history of HTN, Metastatic Colon Cancer with lung mets s/p colectomy and colostomy who is sent in by his oncologist for chemotherapy. The patient has been managed on an outpatient basis for his metastatic colon cancer with multiple rounds of different chemotherapies. He notes that he had a wound infection as well and has been feeling more fatigued lately as well. He otherwise denies fevers, chills, SOB, chest, pain, nausea, vomiting, abdominal pain, or changes with urination or bowel movements. Pt examined by me ion the floors- Known to me from previous admission - 48 yrs old male admitted for left leg edema- found to have extensive DVT . Pt was sent here by [facility] for chemotherapy He is hypotensive- feels weak and dehydrated No chills, no abd pain , nausea, cough. 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: CVA (with dizziness and LLE paresis about 1 year ago which resolved at [facility]) Cardiovascular: Yes: HTN, Hyperlipdemia Gastrointestinal: Yes: Cancer, Constipation Heme/Onc: Yes: Current Chemotherapy, Current Radiation Therapy - Past Surgical History Past Surgical History: Yes: Colostomy - Smoking History Smoking history: Never smoked Have you smoked in the past 12 months: No If you are a former smoker, when did you quit?: 1997 - Alcohol/Substance Use Hx Alcohol Use: No History of Substance Use: reports: None - Social History ADL: Independent Occupation: [employer] History of Recent Travel: No Home Medications - Allergies Allergies/Adverse Reactions: Allergies Allergy/AdvReac Type Severity Reaction Status Date / Time shellfish derived Allergy Verified 10/01/18 10:22 - Home Medications Home Medications: Ambulatory Orders Amlodipine Besylate [Norvasc -] 5 mg PO DAILY 10/01/18 Carvedilol [Coreg -] 12.5 mg PO BID 10/01/18 Docusate Sodium [Colace -] 100 mg PO HS 10/01/18 FENTANYL 25mcg PATCH [DURAGESIC 25mcg PATCH -] 1 each TD Q72H 10/01/18 Oxycodone HCl [Oxycodone HCl ER] 10 mg PO BID PRN 10/01/18 Pantoprazole Sodium 40 mg PO DAILY 10/01/18 Family Disease History - Family Disease History Family Disease History: CA: Sister ( ovarian cancer in her 30s), Other: Father (CVA, HTN, colon polyps ), Mother (HTN, no polyps on colonoscopy) Review of Systems - Review of Systems Constitutional: reports: Weakness. denies: Chills, Fever Cardiovascular: denies: Chest Pain, Edema, Palpitations, Shortness of Breath Musculoskeletal: reports: Extremity Pain Physical Examination Vital Signs: Vital Signs Temperature 98.4 F 10/02/18 06:39 Pulse Rate 93 H 10/02/18 06:39 Respiratory Rate 18 10/02/18 06:39 Blood Pressure 85/65 L 10/02/18 06:39 O2 Sat by Pulse Oximetry (%) 100 10/01/18 20:11 Constitutional: Yes: No Distress, Calm, Other (oral mucosa dry) Cardiovascular: Yes: Regular Rate and Rhythm Respiratory: Yes: CTA Bilaterally Gastrointestinal: Yes: Normal Bowel Sounds, Soft, Other (colostomy- functioning) . No: Tenderness Labs: CBC, BMP 10/02/18 05:00 10/02/18 05:00 Imaging - Results Chest X-ray: Image Reviewed (no infiltrate) Cat Scan: Report Reviewed Ultrasound: Report Reviewed EKG: Image Reviewed (sinus) Problem List - Problems (1) DVT (deep venous thrombosis) Code(s): I82.409 - ACUTE EMBOLISM AND THOMBOS UNSP DEEP VN UNSP LOWER EXTREMITY Qualifiers: DVT location: lower extremity Affected thrombotic vein of extremity: unspecified vein of extremity Chronicity: unspecified Laterality: unspecified laterality Qualified Code(s): I82.409 - Acute embolism and thrombosis of unspecified deep veins of unspecified lower extremity (2) Metastatic colon cancer to liver Code(s): C18.9 - MALIGNANT NEOPLASM OF COLON, UNSPECIFIED; C78.7 - SECONDARY MALIG NEOPLASM OF LIVER AND INTRAHEPATIC BILE DUCT (3) Adenocarcinoma Code(s): C80.1 - MALIGNANT (PRIMARY) NEOPLASM, UNSPECIFIED (4) Anemia due to blood loss, chronic Code(s): D50.0 - IRON DEFICIENCY ANEMIA SECONDARY TO BLOOD LOSS (CHRONIC) Assessment/Plan PLAN DVT --On heparin drip at this time -- monitor CBC Colon CA with mets -- chemotherapy per Oncology -- s/p RT Hypotension -- r/o sepsis vs pre renal -- blood culture done -- check UA and urine cultrue -- iv fluids -- hold off Norvasc Acute on chronic CKD -- was on short term HD previous admission -- dehydrated -- iv fluids -- renal consult
[2018-10-02] MEDS: PANTOPRAZOLE 40 MG TABLET (FP) PO SCH (11:13)
--- NOTE | 2018-10-02 12:12 | CONSULT ---
Consult - text type - Consultation Consultation Note: Renal Consult for ISMAEL This is a 48 year old AA gentleman with hx of Metastatic Colon Ca s/p Colectomy , Hypertension, recent admission with ISMAEL requiring dialysis who presented from the [place] with swelling of his LE and found to have extrensive DVT with ISMAEL. Pt reports good urine output although it sometimes comes out slowly. Denies any flank pain, dysuria, hematuria. No NSAID use noted. No IV contrast exposure noted. No N/V. Appetite is good. No recent Abx use, no rash. on IV Heparin gtt. PMHx: as above Allergies: Shellfish Family Hx: NC Social Hx: No T/A/D ROS: As per HPI Home Medications Medication Instructions Recorded Amlodipine Besylate [Norvasc -] 5 mg PO DAILY 10/01/18 Carvedilol [Coreg -] 12.5 mg PO BID 10/01/18 Docusate Sodium [Colace -] 100 mg PO HS 10/01/18 FENTANYL 25mcg PATCH [DURAGESIC 1 each TD Q72H 10/01/18 25mcg PATCH -] Oxycodone HCl [Oxycodone HCl ER] 10 mg PO BID PRN 10/01/18 Pantoprazole Sodium 40 mg PO DAILY 10/01/18 Vital Signs Temperature 98.4 F 10/02/18 06:39 Pulse Rate 93 H 10/02/18 06:39 Respiratory Rate 18 10/02/18 06:39 Blood Pressure 85/65 L 10/02/18 06:39 O2 Sat by Pulse Oximetry (%) 100 10/01/18 20:11 Intake & Output 09/29/18 09/30/18 10/01/18 10/02/18 23:59 23:59 23:59 23:59 Intake Total 20 0 Balance 20 0 Weight 86.636 kg NAD awake and alert neck supple, no JVD RRR, CTA soft NT/ND + colostomy ++ edema in LE no overt bladder distension CBC, BMP 10/02/18 05:00 10/02/18 05:00 Current Medications Carvedilol (Coreg -) 12.5 mg PO BID AJ Docusate Sodium (Colace -) 100 mg PO HS [facility] Last Admin: 10/01/18 22:27 Dose: 100 mg Fentanyl (Duragesic 25mcg Patch -) 1 patch TD Q72H [facility] Last Admin: 10/01/18 23:16 Dose: Not Given Heparin Sodium (Porcine) (Heparin -) 1,000 unit IVPUSH PRN PRN PRN Reason: Heparin Heparin Sodium (Porcine) (Heparin -) 5,000 unit IVPUSH PRN PRN PRN Reason: Heparin Last Admin: 10/01/18 19:07 Dose: 5,000 unit Heparin Sodium (Porcine) 25, (000 unit/ Sodium Chloride) 500 mls @ 20 mls/hr IV TITR AJ; Protocol Last Admin: 10/01/18 19:07 Dose: 1,000 unit/hr, 20 mls/hr Sodium Chloride (Normal Saline -) 1,000 mls @ 125 mls/hr IV ASDIR AJ Miscellaneous (Duragesic Patch Waste) 1 each TD PRN PRN PRN Reason: WASTE Oxycodone HCl (Oxycontin -) 10 mg PO BID PRN PRN Reason: PAIN LEVEL 6-10 Pantoprazole Sodium (Protonix -) 40 mg PO DAILY AJ Last Admin: 10/02/18 11:13 Dose: 40 mg 48 year old AA gentleman with hx of Metastatic Colon Ca s/p Colectomy, Hypertension, recent admission with ISMAEL requiring dialysis who presented from the [place] with swelling of his LE and found to have extrensive DVT with ISMAEL. #ISMAEL likely due to hypovolemia (low BP) vs. ATN vs. Renal Vein thrombosis #LE DVT #Anemia #Metastatic Colon Ca Check urine studies for FeNa, UPCR Check Renal US as well as renal vein Doppler to r/o thrombosis Bladder scan to r/o retention no acute indication for [employer] continue aggressive volume repletion keep MAP > 65 Dose all meds for Cr Cl < 30 Continue heparin gtt for DVT Heme/Oncology following Supportive care Thank you Sami Pulido DO
[2018-10-02] MEDS: SODIUM CHLORIDE 1,000 ML IV SCH ×2 (13:00→22:14)
[2018-10-02] MEDS: HEPARIN - 25,000 UNIT in SODIUM CHLORIDE 495 ML IV SCH ×3 (13:44→22:13)
[2018-10-02] MEDS ORDERED: WARFARIN NA 7.5 MG TABLET (FP) PO ONE (19:00)
[2018-10-02 19:59] LABS: URINE APPEARANCE TURBID; URINE BILIRUBIN NEGATIVE (<2.0 mg/dL); URINE COLOR YELLOW; URINE GLUCOSE (UA) NEGATIVE (NEGATIVE); URINE KETONE NEGATIVE (NEGATIVE); URINE LEUK ESTERASE TRACE (NEGATIVE); URINE NITRITE NEGATIVE (NEGATIVE); URINE PROTEIN 3+ (NEGATIVE)
[2018-10-02 20:01] LABS: INR 1.22 (0.83-1.09); PROTHROMBIN TIME (PATIENT) 14.4 SEC (9.7-13.0)
[2018-10-02 20:05] LABS: EPI CELLS MODERATE /HPF (FEW); URINE BACTERIA RARE /hpf (NONE SEEN); URINE MUCUS FEW
--- NOTE | 2018-10-02 20:05 | PN ---
Teaching Attending Note Name of Resident: Farhana Telles ATTENDING PHYSICIAN STATEMENT I saw and evaluated the patient. I reviewed the resident's note and discussed the case with the resident. I agree with the resident's findings and plan as documented. ASSESSMENT AND PLAN: 48 y/o with metastatic rectal cancer with liver, lung mets, sacral mass, s/p FOLOX/avastin and more recently Rt to sacral mass, admitted with extensive LLE DVT On heparin --will bridge to coumadin---baseline INR 1.23/PTT 35 Also with ISMAEL --on iv fluids Plan on C2 irinotecan once renal function improves
[2018-10-02] MEDS: DOCUSATE SODIUM 100 MG CAPSULE (FP) PO SCH (22:10)
[2018-10-03] MEDS: SODIUM CHLORIDE 1,000 ML IV SCH ×3 (06:21→18:38)
[2018-10-03 06:53] LABS: BASO % 0.4 % (0-2.0); EOS % 0.3 % (0-4.5); HEMATOCRIT 25.9 % (35.4-49); HEMOGLOBIN 8.3 GM/dL (11.7-16.9); LYMPH % 14.4 % (8-40); MCH 27.8 pg (25.7-33.7); MCHC 32.1 g/dl (32.0-35.9); MEAN CELL VOLUME 86.7 fl (80-96); MONO % 14.2 % (3.8-10.2); NEUT % 70.7 % (42.8-82.8); PLATELET COUNT 246 K/MM3 (134-434); RBC 2.99 M/mm3 (4.00-5.60); RDW 17.6 % (11.9-15.9); WHITE BLOOD COUNT 6.4 K/mm3 (4.0-10.0)
[2018-10-03 07:14] LABS: INR 1.36 (0.83-1.09); PROTHROMBIN TIME (PATIENT) 16.1 SEC (9.7-13.0)
[2018-10-03 08:50] LABS: ALBUMIN 0.9 g/dl (3.4-5.0); ALK PHOS 1444 U/L (45-117); ANION GAP 9 MMOL/L (8-16); BILIRUBIN,TOTAL 0.6 mg/dL (0.2-1); BLOOD UREA NITROGEN 29 mg/dL (7-18); CHLORIDE 102 mmol/L (98-107); CO2 23 mmol/L (21-32); CREATININE 2.6 mg/dL (0.55-1.3); GLUCOSE,RANDOM 68 mg/dL (74-106); POTASSIUM 4.3 mmol/L (3.5-5.1); SGOT/AST 158 U/L (15-37); SGPT/ALT 26 U/L (13-61); SODIUM 134 mmol/L (136-145); TOT PROT 4.4 g/dl (6.4-8.2)
[2018-10-03 08:56] LABS: CALCIUM 6.5 mg/dL (8.5-10.1)
[2018-10-03] MEDS: CARVEDILOL 12.5 MG TABLET (FP) PO SCH (09:42)
[2018-10-03] MEDS: PANTOPRAZOLE 40 MG TABLET (FP) PO SCH (09:42)
--- NOTE | 2018-10-03 10:50 | PN ---
Progress Note (short form) - Note Progress Note: pt seen/ examined chart reviewed awake and comfortable Denies pain Vital Signs Temp 97.8 F 10/03/18 05:46 Pulse 105 H 10/03/18 05:46 Resp 18 10/03/18 05:46 BP 105/78 10/03/18 05:46 Pulse Ox 97 10/02/18 22:00 Intake & Output 10/02/18 10/02/18 10/03/18 11:59 23:59 11:59 Intake Total 0 1730 1041 Output Total 200 200 Balance 0 1530 841 Intake: IV 0 1730 1041 Heparin - 25,000 Unit In 0 230 216 Normal Saline - 495 ml @ 1,000 UNIT/HR 20 mls/hr IV TITR [facility] Rx#: [id number] Normal Saline - 1,000 ml 1500 825 @ 125 mls/hr IV ASDIR AJ Rx#:[id number] Output: Urine 200 200 Void 200 200 Other: Voiding Method Diaper Urinal # Unmeasured Voids Void 1 Bowel Movement No Active Medications Carvedilol (Coreg -) 12.5 mg PO BID AJ Last Admin: 10/03/18 09:42 Dose: 12.5 mg Docusate Sodium (Colace -) 100 mg PO HS AJ Last Admin: 10/02/18 22:10 Dose: Not Given Fentanyl (Duragesic 25mcg Patch -) 1 patch TD Q72H [facility] Last Admin: 10/01/18 23:16 Dose: Not Given Heparin Sodium (Porcine) (Heparin -) 1,000 unit IVPUSH PRN PRN PRN Reason: Heparin Heparin Sodium (Porcine) (Heparin -) 5,000 unit IVPUSH PRN PRN PRN Reason: Heparin Last Admin: 10/01/18 19:07 Dose: 5,000 unit Heparin Sodium (Porcine) 25, (000 unit/ Sodium Chloride) 500 mls @ 20 mls/hr IV TITR AJ; Protocol Last Admin: 10/02/18 22:13 Dose: 900 unit/hr, 18 mls/hr Sodium Chloride (Normal Saline -) 1,000 mls @ 125 mls/hr IV ASDIR AJ Last Admin: 10/03/18 09:42 Dose: Not Given Miscellaneous (Duragesic Patch Waste) 1 each TD PRN PRN PRN Reason: WASTE Oxycodone HCl (Oxycontin -) 10 mg PO BID PRN PRN Reason: PAIN LEVEL 6-10 Last Admin: 10/03/18 09:45 Dose: 10 mg Pantoprazole Sodium (Protonix -) 40 mg PO DAILY [facility] Last Admin: 10/03/18 09:42 Dose: 40 mg Warfarin Sodium (Coumadin -) 5 mg PO DAILY@1800 [facility] CBC, BMP 10/03/18 05:15 10/03/18 05:15 Microbiology 10/02/18 14:00 Urine Culture - Final Urine - Urine Clean Catch Contaminated: Please Repeat 10/01/18 10:45 Blood Culture - Preliminary Blood - Peripheral Venous NO GROWTH OBTAINED AFTER 24 HOURS, INCUBATION TO CONTINUE FOR 4 DAYS. 10/01/18 11:00 Blood Culture - Preliminary Blood - Peripheral Venous NO GROWTH OBTAINED AFTER 24 HOURS, INCUBATION TO CONTINUE FOR 4 DAYS. Physical Examination Constitutional: Yes: No Distress, Calm. Cardiovascular: Yes: Regular Rate and Rhythm Respiratory: Yes: CTA Bilaterally Gastrointestinal: Yes: Normal Bowel Sounds, Soft, Other (colostomy- functioning) . No: Tenderness Neuro--alert and awake Imaging - Results Chest X-ray: Image Reviewed (no infiltrate) Cat Scan: Report Reviewed Ultrasound: Report Reviewed EKG: Image Reviewed (sinus) Problem List - Problems (1) DVT (deep venous thrombosis) Code(s): I82.409 - ACUTE EMBOLISM AND THOMBOS UNSP DEEP VN UNSP LOWER EXTREMITY Qualifiers: DVT location: lower extremity Affected thrombotic vein of extremity: unspecified vein of extremity Chronicity: unspecified Laterality: unspecified laterality Qualified Code(s): I82.409 - Acute embolism and thrombosis of unspecified deep veins of unspecified lower extremity (2) Metastatic colon cancer to liver Code(s): C18.9 - MALIGNANT NEOPLASM OF COLON, UNSPECIFIED; C78.7 - SECONDARY MALIG NEOPLASM OF LIVER AND INTRAHEPATIC BILE DUCT (3) Adenocarcinoma Code(s): C80.1 - MALIGNANT (PRIMARY) NEOPLASM, UNSPECIFIED (4) Anemia due to blood loss, chronic Code(s): D50.0 - IRON DEFICIENCY ANEMIA SECONDARY TO BLOOD LOSS (CHRONIC) Assessment/Plan DVT --On heparin drip at this time ---bridge with Coumadin -- monitor CBC/ INR Colon CA with mets -- chemotherapy per Oncology -- s/p RT Hypotension---better -- r/o sepsis vs pre renal -- blood culture done -- check UA and urine cultrue -- iv fluids -- hold off Norvasc Acute on chronic CKD -- was on short term HD previous admission -- dehydrated -- iv fluids-- -- renal on case planner lites Overall condition--remains guarded Will follow Will discuss with oncology also
--- NOTE | 2018-10-03 12:58 | PN ---
Progress Note (short form) - Note Progress Note: Patient seen and examined Offers no specific complaints Discussed with renal For hydration and abdominal x-rays Last Vital Signs Temp Pulse Resp BP Pulse Ox 97.8 F 105 H 18 105/78 97 10/03/18 05:46 10/03/18 05:46 10/03/18 05:46 10/03/18 05:46 10/02/18 22:00 HEENT: EZEQUIEL, EOM Intact Oropharynx: No thrush, No mucositis Cor: RSR, No murmurs, No gallops Lungs: Clear to P&A Abd: Soft, Normal bowel sounds, No organomegaly Ext:No significant edema Skin: LLE distally dressed with blister CBC, BMP 10/03/18 05:15 10/03/18 05:15 Current Medications Generic Name Dose Route Start Last Admin Trade Name Freq PRN Reason Stop Dose Admin Carvedilol 12.5 mg 10/02/18 11:07 10/03/18 09:42 Coreg - PO 12.5 mg BID AJ Administration Docusate Sodium 100 mg 10/01/18 22:00 10/02/18 22:10 Colace - PO Not Given HS JA Fentanyl 1 patch 10/01/18 19:30 10/01/18 23:16 Duragesic 25mcg Patch - TD Not Given Q72H AJ Heparin Sodium (Porcine) 1,000 unit 10/01/18 18:11 Heparin - IVPUSH PRN PRN Heparin Heparin Sodium (Porcine) 5,000 unit 10/01/18 18:11 10/01/18 19:07 Heparin - IVPUSH 5,000 unit PRN PRN Administration Heparin Heparin Sodium (Porcine) 25, 500 mls @ 20 mls/hr 10/01/18 18:15 10/03/18 12: 55 000 unit/ Sodium Chloride IV 850 unit/hr TITR AJ 17 mls/hr Titration Protocol 1,000 UNIT/HR Sodium Chloride 1,000 mls @ 125 mls/hr 10/02/18 09:30 10/03/18 09:42 Normal Saline - IV Not Given ASDIR AJ Miscellaneous 1 each 10/01/18 19:30 Duragesic Patch Waste TD PRN PRN WASTE Oxycodone HCl 10 mg 10/01/18 19:21 10/03/18 09:45 Oxycontin - PO 10 mg BID PRN Administration PAIN LEVEL 6-10 Pantoprazole Sodium 40 mg 10/02/18 10:00 10/03/18 09:42 Protonix - PO 40 mg DAILY AJ Administration Warfarin Sodium 5 mg 10/03/18 18:00 Coumadin - PO DAILY@1800 [facility] 48 y/o with metastatic rectal cancer with liver, lung mets, sacral mass, s/p FOLOX/avastin S/P RT to sacral mass, LLE DVT On heparin -- bridge to coumadin--- Also with ISMAEL --on iv fluids- followed by nephrology. Plan on C2 irinotecan once renal function improves Receiving gentle hydration for ISMAEL To monitor anemia For KUB
--- NOTE | 2018-10-03 13:50 | PN ---
Progress Note (short form) - Note Progress Note: Renal follow up for ISMAEL Pt seen and examined at the bedside no acute complaints making urine denies any sob, cp, abd pain, fever or chills Vital Signs Temperature 97.8 F 10/03/18 05:46 Pulse Rate 105 H 10/03/18 05:46 Respiratory Rate 18 10/03/18 05:46 Blood Pressure 105/78 10/03/18 05:46 O2 Sat by Pulse Oximetry (%) 97 10/02/18 22:00 Intake & Output 09/30/18 10/01/18 10/02/18 10/03/18 23:59 23:59 23:59 23:59 Intake Total 20 1730 1191 Output Total 200 200 Balance 20 1530 991 Weight 86.636 kg NAD awake and alert neck supple, no JVD soft NT/ND Abd ++ edema in LE CBC, BMP 10/03/18 05:15 10/03/18 05:15 Current Medications Carvedilol (Coreg -) 12.5 mg PO BID AJ Last Admin: 10/03/18 09:42 Dose: 12.5 mg Docusate Sodium (Colace -) 100 mg PO HS AJ Last Admin: 10/02/18 22:10 Dose: Not Given Fentanyl (Duragesic 25mcg Patch -) 1 patch TD Q72H [facility] Last Admin: 10/01/18 23:16 Dose: Not Given Heparin Sodium (Porcine) (Heparin -) 1,000 unit IVPUSH PRN PRN PRN Reason: Heparin Heparin Sodium (Porcine) (Heparin -) 5,000 unit IVPUSH PRN PRN PRN Reason: Heparin Last Admin: 10/01/18 19:07 Dose: 5,000 unit Heparin Sodium (Porcine) 25, (000 unit/ Sodium Chloride) 500 mls @ 20 mls/hr IV TITR AJ; Protocol Last Titration: 10/03/18 12:55 Dose: 850 unit/hr, 17 mls/hr Sodium Chloride (Normal Saline -) 1,000 mls @ 125 mls/hr IV ASDIR AJ Last Admin: 10/03/18 09:42 Dose: Not Given Miscellaneous (Duragesic Patch Waste) 1 each TD PRN PRN PRN Reason: WASTE Oxycodone HCl (Oxycontin -) 10 mg PO BID PRN PRN Reason: PAIN LEVEL 6-10 Last Admin: 10/03/18 09:45 Dose: 10 mg Pantoprazole Sodium (Protonix -) 40 mg PO DAILY [facility] Last Admin: 10/03/18 09:42 Dose: 40 mg Warfarin Sodium (Coumadin -) 5 mg PO DAILY@1800 [facility] 48 year old AA gentleman with hx of Metastatic Colon Ca s/p Colectomy, Hypertension, recent admission with ISMAEL requiring dialysis who presented from the [place] with swelling of his LE and found to have extrensive DVT with ISMAEL. #ISMAEL likely due to hypovolemia (low BP) vs. ATN vs. Renal Vein thrombosis #LE DVT #Anemia #Metastatic Colon Ca Urine studies consistent with renal hypoprofuison with preserved tubular function pt with UPCR of ~6 this admission, was much lower previously, will repeat once renal function stabilized. Check Renal US as well as renal vein Doppler to r/o thrombosis Bladder scan showed no urinary retention no acute indication for [employer] continue aggressive volume repletion keep MAP > 65 Dose all meds for Cr Cl < 30 Continue heparin gtt for DVT Heme/Oncology following Thank you Sami Pulido DO
[2018-10-03] MEDS: fentaNYL 12mcg/hr PATCH.TD72 TD SCH (18:25)
[2018-10-03] MEDS: WARFARIN NA 5 MG TABLET (UD) PO SCH (18:25)
[2018-10-03] MEDS: HEPARIN - 25,000 UNIT in SODIUM CHLORIDE 495 ML IV SCH (18:26)
[2018-10-03] MEDS: FENTANYL PATCH WASTE TD PRN (18:30)
[2018-10-03] MEDS: DOCUSATE SODIUM 100 MG CAPSULE (FP) PO SCH (21:42)
[2018-10-04] MEDS: SODIUM CHLORIDE 1,000 ML IV SCH ×4 (02:05→21:41)
[2018-10-04 06:33] LABS: BASO % 0.5 % (0-2.0); EOS % 0.1 % (0-4.5); MCH 29.1 pg (25.7-33.7); MCHC 34.6 g/dl (32.0-35.9); MEAN CELL VOLUME 84.2 fl (80-96); MEAN PLT VOLUME 7.6 fl (7.5-11.1); MONO % 12.6 % (3.8-10.2); NEUT % 76.8 % (42.8-82.8); PLATELET COUNT 256 K/MM3 (134-434); RBC 2.73 M/mm3 (4.00-5.60); RDW 16.8 % (11.9-15.9); WHITE BLOOD COUNT 8.6 K/mm3 (4.0-10.0)
[2018-10-04 06:51] LABS: INR 2.83 (0.83-1.09); PROTHROMBIN TIME (PATIENT) 33.8 SEC (9.7-13.0)
[2018-10-04 09:21] LABS: ALBUMIN 0.9 g/dl (3.4-5.0); ALK PHOS 1209 U/L (45-117); ANION GAP 11 MMOL/L (8-16); BILIRUBIN,TOTAL 0.6 mg/dL (0.2-1); BLOOD UREA NITROGEN 32 mg/dL (7-18); CHLORIDE 106 mmol/L (98-107); CO2 19 mmol/L (21-32); CREATININE 2.7 mg/dL (0.55-1.3); GLUCOSE,RANDOM 80 mg/dL (74-106); POTASSIUM 4.1 mmol/L (3.5-5.1); SGOT/AST 76 U/L (15-37); SGPT/ALT 17 U/L (13-61); SODIUM 136 mmol/L (136-145); TOT PROT 4.2 g/dl (6.4-8.2)
[2018-10-04 09:22] LABS: MAGNESIUM 1.9 mg/dL (1.8-2.4)
[2018-10-04 09:25] LABS: CALCIUM 6.4 mg/dL (8.5-10.1)
[2018-10-04] MEDS: PANTOPRAZOLE 40 MG TABLET (FP) PO SCH (10:00)
--- NOTE | 2018-10-04 11:35 | PN ---
Progress Note (short form) - Note Progress Note: pt seen/ examined. awake/ comfortable denies pain alert/ awake Vital Signs Temp 98.2 F 10/04/18 07:00 Pulse 97 H 10/04/18 07:00 Resp 20 10/04/18 10:00 BP 95/73 10/04/18 07:00 Pulse Ox 97 10/04/18 10:00 Intake & Output 10/03/18 10/03/18 10/04/18 11:59 23:59 11:59 Intake Total 5728 443 7672 Output Total 200 200 Balance 439 885 2023 Weight 191 lb Intake: IV 1041 1579 Heparin - 25,000 Unit In 216 204 Normal Saline - 495 ml @ 1,000 UNIT/HR 20 mls/hr IV TITR [facility] Rx#: [id number] Normal Saline - 1,000 ml 825 1375 @ 125 mls/hr IV ASDIR [facility] Rx#:[id number] Oral 470 200 Output: Urine 200 200 Void 200 200 Other: Voiding Method Urinal Urinal Urinal # Unmeasured Voids Void 600 Bowel Movement No Height 5 ft 6 in Body Mass Index (BMI) 30.8 Active Medications Docusate Sodium (Colace -) 100 mg PO HS [facility] Last Admin: 10/03/18 21:42 Dose: 100 mg Fentanyl (Duragesic 12mcg Patch -) 1 patch TD Q72H [facility] Stop: 10/10/18 16:14 Last Admin: 10/03/18 18:25 Dose: 1 patch Heparin Sodium (Porcine) (Heparin -) 1,000 unit IVPUSH PRN PRN PRN Reason: Heparin Sodium Chloride (Normal Saline -) 1,000 mls @ 125 mls/hr IV ASDIR [facility] Last Admin: 10/04/18 09:58 Dose: Not Given Miscellaneous (Duragesic Patch Waste) 1 each TD PRN PRN PRN Reason: PAIN Last Admin: 10/03/18 18:30 Dose: 1 each Oxycodone HCl (Oxycontin -) 10 mg PO BID PRN PRN Reason: PAIN LEVEL 6-10 Last Admin: 10/03/18 09:45 Dose: 10 mg Pantoprazole Sodium (Protonix -) 40 mg PO DAILY [facility] Last Admin: 10/04/18 10:00 Dose: 40 mg Warfarin Sodium (Coumadin -) 5 mg PO DAILY@1800 [facility] Last Admin: 10/03/18 18:25 Dose: 5 mg CBC,CMP WBC 8.6 K/mm3 (4.0-10.0) 10/04/18 06:25 RBC 2.73 M/mm3 (4.00-5.60) L 10/04/18 06:25 Hgb 8.0 GM/dL (11.7-16.9) L 10/04/18 06:25 Hct 23.0 % (35.4-49) L 10/04/18 06:25 MCV 84.2 fl (80-96) 10/04/18 06:25 MCH 29.1 pg (25.7-33.7) 10/04/18 06:25 MCHC 34.6 g/dl (32.0-35.9) 10/04/18 06:25 RDW 16.8 % (11.9-15.9) H 10/04/18 06:25 Plt Count 256 K/MM3 (134-434) 10/04/18 06:25 MPV 7.6 fl (7.5-11.1) 10/04/18 06:25 Absolute Neuts (auto) 6.6 K/mm3 (1.5-8.0) 10/04/18 06:25 Neutrophils % 76.8 % (42.8-82.8) 10/04/18 06:25 Lymphocytes % 10.0 % (8-40) D 10/04/18 06:25 Monocytes % 12.6 % (3.8-10.2) H 10/04/18 06:25 Eosinophils % 0.1 % (0-4.5) 10/04/18 06:25 Basophils % 0.5 % (0-2.0) 10/04/18 06:25 Nucleated RBC % 0 % (0-0) 10/04/18 06:25 Sodium 136 mmol/L (136-145) 10/04/18 06:25 Potassium 4.1 mmol/L (3.5-5.1) 10/04/18 06:25 Chloride 106 mmol/L (98-107) 10/04/18 06:25 Carbon Dioxide 19 mmol/L (21-32) L 10/04/18 06:25 Anion Gap 11 MMOL/L (8-16) 10/04/18 06:25 BUN 32 mg/dL (7-18) H 10/04/18 06:25 Creatinine 2.7 mg/dL (0.55-1.3) H 10/04/18 06:25 Creat Clearance w eGFR 25.24 (>60) 10/04/18 06:25 Random Glucose 80 mg/dL (74-106) 10/04/18 06:25 Lactic Acid 1.1 mmol/L (0.4-2.0) 10/01/18 11:00 Calcium 6.4 mg/dL (8.5-10.1) L* 10/04/18 06:25 Magnesium 1.9 mg/dL (1.8-2.4) 10/04/18 06:25 Total Bilirubin 0.6 mg/dL (0.2-1) 10/04/18 06:25 AST 76 U/L (15-37) H 10/04/18 06:25 ALT 17 U/L (13-61) 10/04/18 06:25 Alkaline Phosphatase 1209 U/L (45-117) H 10/04/18 06:25 Total Protein 4.2 g/dl (6.4-8.2) L 10/04/18 06:25 Albumin 0.9 g/dl (3.4-5.0) L 10/04/18 06:25 CBC, BMP 10/04/18 06:25 10/04/18 06:25 INR, PTT INR 2.83 (0.83-1.09) H 10/04/18 06:25 Physical Examination Constitutional: Yes: No Distress, Calm. Cardiovascular: Yes: Regular Rate and Rhythm Respiratory: Yes: CTA Bilaterally Gastrointestinal: Yes: Normal Bowel Sounds, Soft, Other (colostomy- functioning) . No: Tenderness Neuro--alert and awake Imaging - Results Chest X-ray: Image Reviewed (no infiltrate) Cat Scan: Report Reviewed Ultrasound: Report Reviewed EKG: Image Reviewed (sinus) Problem List - Problems (1) DVT (deep venous thrombosis) Code(s): I82.409 - ACUTE EMBOLISM AND THOMBOS UNSP DEEP VN UNSP LOWER EXTREMITY Qualifiers: DVT location: lower extremity Affected thrombotic vein of extremity: unspecified vein of extremity Chronicity: unspecified Laterality: unspecified laterality Qualified Code(s): I82.409 - Acute embolism and thrombosis of unspecified deep veins of unspecified lower extremity (2) Metastatic colon cancer to liver Code(s): C18.9 - MALIGNANT NEOPLASM OF COLON, UNSPECIFIED; C78.7 - SECONDARY MALIG NEOPLASM OF LIVER AND INTRAHEPATIC BILE DUCT (3) Adenocarcinoma Code(s): C80.1 - MALIGNANT (PRIMARY) NEOPLASM, UNSPECIFIED (4) Anemia due to blood loss, chronic Code(s): D50.0 - IRON DEFICIENCY ANEMIA SECONDARY TO BLOOD LOSS (CHRONIC) Assessment/Plan Stable d/c heparin -- inr therapeutic albumin very low Add ensure continue other meds will follow
--- NOTE | 2018-10-04 13:55 | PN ---
Progress Note, Physician Chief Complaint: The patient seen in his bed. Seems comfortable. Oral intake poor. IV fluids infusing. History of Present Illness: This is a 48 year old gentleman with hx of Metastatic Colon Ca s/p Colectomy, Hypertension, recent admission with ISMAEL requiring dialysis who presented from the [place] with swelling of his LE and found to have extrensive DVT with ISMAEL. Pt reports good urine output although it sometimes comes out slowly. Denies any flank pain, dysuria, hematuria. - Current Medication List Current Medications: Active Medications Docusate Sodium (Colace -) 100 mg PO HS [facility] Last Admin: 10/03/18 21:42 Dose: 100 mg Fentanyl (Duragesic 12mcg Patch -) 1 patch TD Q72H [facility] Stop: 10/10/18 16:14 Last Admin: 10/03/18 18:25 Dose: 1 patch Heparin Sodium (Porcine) (Heparin -) 1,000 unit IVPUSH PRN PRN PRN Reason: Heparin Sodium Chloride (Normal Saline -) 1,000 mls @ 125 mls/hr IV ASDIR [facility] Last Admin: 10/04/18 13:09 Dose: 125 mls/hr Miscellaneous (Duragesic Patch Waste) 1 each TD PRN PRN PRN Reason: PAIN Last Admin: 10/03/18 18:30 Dose: 1 each Oxycodone HCl (Oxycontin -) 10 mg PO BID PRN PRN Reason: PAIN LEVEL 6-10 Last Admin: 10/03/18 09:45 Dose: 10 mg Pantoprazole Sodium (Protonix -) 40 mg PO DAILY [facility] Last Admin: 10/04/18 10:00 Dose: 40 mg Warfarin Sodium (Coumadin -) 5 mg PO DAILY@1800 [facility] Last Admin: 10/03/18 18:25 Dose: 5 mg - Objective Vital Signs: Vital Signs Temperature 98.2 F 10/04/18 09:00 Pulse Rate 97 H 10/04/18 09:00 Respiratory Rate 20 10/04/18 10:00 Blood Pressure 99/52 L 10/04/18 09:00 O2 Sat by Pulse Oximetry (%) 97 10/04/18 10:00 Constitutional: Yes: No Distress, Anxious, Pallor Eyes: Yes: Conjunctiva Clear HENT: Yes: Normocephalic Neck: Yes: Trachea Midline Respiratory: Yes: Diminished, Poor Air Entry Gastrointestinal: Yes: Normal Bowel Sounds, Soft Genitourinary: No: Bladder Distention, CVA Tenderness - Left, CVA Tenderness - Right Musculoskeletal: Yes: Back Pain Neurological: Yes: Alert, Oriented Labs: CBC, BMP 10/04/18 06:25 10/04/18 06:25 INR, PTT INR 2.83 (0.83-1.09) H 10/04/18 06:25 Problem List - Problems (1) ISMAEL (acute kidney injury) Code(s): N17.9 - ACUTE KIDNEY FAILURE, UNSPECIFIED (2) DVT (deep venous thrombosis) Code(s): I82.409 - ACUTE EMBOLISM AND THOMBOS UNSP DEEP VN UNSP LOWER EXTREMITY Qualifiers: DVT location: lower extremity Affected thrombotic vein of extremity: unspecified vein of extremity Chronicity: unspecified Laterality: unspecified laterality Qualified Code(s): I82.409 - Acute embolism and thrombosis of unspecified deep veins of unspecified lower extremity (3) Metastatic colon cancer to liver Code(s): C18.9 - MALIGNANT NEOPLASM OF COLON, UNSPECIFIED; C78.7 - SECONDARY MALIG NEOPLASM OF LIVER AND INTRAHEPATIC BILE DUCT (4) Adenocarcinoma Code(s): C80.1 - MALIGNANT (PRIMARY) NEOPLASM, UNSPECIFIED (5) Anemia due to blood loss, chronic Code(s): D50.0 - IRON DEFICIENCY ANEMIA SECONDARY TO BLOOD LOSS (CHRONIC) Assessment/Plan This is a 48 year old AA gentleman with hx of Metastatic Colon Ca s/p Colectomy , Hypertension, recent admission with ISMAEL requiring dialysis who presented from the [place] with swelling of his LE and found to have extrensive DVT with ISMAEL. Pt reports good urine output although it sometimes comes out slowly. ISMAEL. The renal functions show no signs of improvement. May be a reflection of renal hypoperfusion and Hemodynamic renal failure. Hypocalcemia. But corrected for the severe Hypoalbuminemia, the Serum Ca is in normal range. Will continue hydration. Agree with the current management. Thank you. Arlene Cintron MD
[2018-10-04] MEDS: WARFARIN NA 5 MG TABLET (UD) PO SCH (17:38)
[2018-10-04] MEDS: DOCUSATE SODIUM 100 MG CAPSULE (FP) PO SCH (21:44)
[2018-10-05] MEDS: PANTOPRAZOLE 40 MG TABLET (FP) PO SCH (09:54)
[2018-10-05] MEDS: SODIUM CHLORIDE 1,000 ML IV SCH ×2 (09:54→18:06)
--- NOTE | 2018-10-05 11:04 | PN ---
Progress Note, Physician Chief Complaint: The patient seen in his bed.Seems comfortable. IV fluids well tolerated. Oral intake poor. History of Present Illness: This is a 48 year old gentleman with hx of Metastatic Colon Ca s/p Colectomy, Hypertension, recent admission with ISMAEL requiring dialysis who presented from the [place] with swelling of his LE and found to have extrensive DVT with ISMAEL. Pt reports good urine output although it sometimes comes out slowly. Denies any flank pain, dysuria, hematuria. - Current Medication List Current Medications: Active Medications Docusate Sodium (Colace -) 100 mg PO HS [facility] Last Admin: 10/04/18 21:44 Dose: Not Given Fentanyl (Duragesic 12mcg Patch -) 1 patch TD Q72H [facility] Stop: 10/10/18 16:14 Last Admin: 10/03/18 18:25 Dose: 1 patch Heparin Sodium (Porcine) (Heparin -) 1,000 unit IVPUSH PRN PRN PRN Reason: Heparin Sodium Chloride (Normal Saline -) 1,000 mls @ 125 mls/hr IV ASDIR [facility] Last Admin: 10/05/18 09:54 Dose: 125 mls/hr Miscellaneous (Duragesic Patch Waste) 1 each TD PRN PRN PRN Reason: PAIN Last Admin: 10/03/18 18:30 Dose: 1 each Oxycodone HCl (Oxycontin -) 10 mg PO BID PRN PRN Reason: PAIN LEVEL 6-10 Last Admin: 10/03/18 09:45 Dose: 10 mg Pantoprazole Sodium (Protonix -) 40 mg PO DAILY [facility] Last Admin: 10/05/18 09:54 Dose: 40 mg Warfarin Sodium (Coumadin -) 5 mg PO DAILY@1800 [facility] Last Admin: 10/04/18 17:38 Dose: 5 mg - Objective Vital Signs: Vital Signs Temperature 97.9 F 10/05/18 10:00 Pulse Rate 102 H 10/05/18 10:00 Respiratory Rate 18 10/05/18 10:00 Blood Pressure 121/64 10/05/18 10:00 O2 Sat by Pulse Oximetry (%) 97 10/04/18 22:00 Constitutional: Yes: Anxious, Mild Distress HENT: Yes: Normocephalic Neck: Yes: Trachea Midline Cardiovascular: Yes: Tachycardia, S1, S2 Gastrointestinal: Yes: Normal Bowel Sounds, Soft Musculoskeletal: Yes: Back Pain, Joint Stiffness Neurological: Yes: Alert Psychiatric: Yes: Alert Labs: CBC, BMP 10/04/18 06:25 10/04/18 06:25 INR, PTT INR 2.83 (0.83-1.09) H 10/04/18 06:25 Problem List - Problems (1) ISMAEL (acute kidney injury) Code(s): N17.9 - ACUTE KIDNEY FAILURE, UNSPECIFIED (2) DVT (deep venous thrombosis) Code(s): I82.409 - ACUTE EMBOLISM AND THOMBOS UNSP DEEP VN UNSP LOWER EXTREMITY Qualifiers: DVT location: lower extremity Affected thrombotic vein of extremity: unspecified vein of extremity Chronicity: unspecified Laterality: unspecified laterality Qualified Code(s): I82.409 - Acute embolism and thrombosis of unspecified deep veins of unspecified lower extremity (3) Metastatic colon cancer to liver Code(s): C18.9 - MALIGNANT NEOPLASM OF COLON, UNSPECIFIED; C78.7 - SECONDARY MALIG NEOPLASM OF LIVER AND INTRAHEPATIC BILE DUCT (4) Adenocarcinoma Code(s): C80.1 - MALIGNANT (PRIMARY) NEOPLASM, UNSPECIFIED (5) Anemia due to blood loss, chronic Code(s): D50.0 - IRON DEFICIENCY ANEMIA SECONDARY TO BLOOD LOSS (CHRONIC) Assessment/Plan This is a 48 year old AA gentleman with hx of Metastatic Colon Ca s/p Colectomy , Hypertension, recent admission with ISMAEL requiring dialysis who presented from the [place] with swelling of his LE and found to have extrensive DVT with ISMAEL. Pt reports good urine output although it sometimes comes out slowly. ISMAEL. The renal functions show no signs of improvement. May be a reflection of renal hypoperfusion and Hemodynamic renal failure. Today's lab data not done. Hypocalcemia. But corrected for the severe Hypoalbuminemia, the Serum Ca is in normal range. Will continue hydration. Encourage oral intake. Agree with the current management. Thank you. Arlene Cintron MD
--- NOTE | 2018-10-05 11:15 | PN ---
Progress Note (short form) - Note Progress Note: pt seen/ examined awake/ comfortable denies pain aebrile no new issues Vital Signs Temp 97.9 F 10/05/18 10:00 Pulse 102 H 10/05/18 10:00 Resp 18 10/05/18 10:00 BP 121/64 10/05/18 10:00 Pulse Ox 97 10/04/18 22:00 Intake & Output 10/04/18 10/04/18 10/05/18 11:59 23:59 11:59 Intake Total 1779 1500 825 Output Total 200 600 Balance 1579 900 825 Intake: IV 1579 1500 825 Heparin - 25,000 Unit In 204 Normal Saline - 495 ml @ 1,000 UNIT/HR 20 mls/hr IV TITR [facility] Rx#: [id number] Normal Saline - 1,000 ml 1375 1500 825 @ 125 mls/hr IV ASDIR [facility] Rx#:[id number] Oral 200 Output: Urine 200 600 Void 200 600 Other: Voiding Method Urinal Urinal Urinal # Unmeasured Voids Void 600 Bowel Movement Yes: 1 Active Medications Docusate Sodium (Colace -) 100 mg PO HS [facility] Last Admin: 10/04/18 21:44 Dose: Not Given Fentanyl (Duragesic 12mcg Patch -) 1 patch TD Q72H [facility] Stop: 10/10/18 16:14 Last Admin: 10/03/18 18:25 Dose: 1 patch Heparin Sodium (Porcine) (Heparin -) 1,000 unit IVPUSH PRN PRN PRN Reason: Heparin Sodium Chloride (Normal Saline -) 1,000 mls @ 125 mls/hr IV ASDIR [facility] Last Admin: 10/05/18 09:54 Dose: 125 mls/hr Miscellaneous (Duragesic Patch Waste) 1 each TD PRN PRN PRN Reason: PAIN Last Admin: 10/03/18 18:30 Dose: 1 each Oxycodone HCl (Oxycontin -) 10 mg PO BID PRN PRN Reason: PAIN LEVEL 6-10 Last Admin: 10/03/18 09:45 Dose: 10 mg Pantoprazole Sodium (Protonix -) 40 mg PO DAILY [facility] Last Admin: 10/05/18 09:54 Dose: 40 mg Warfarin Sodium (Coumadin -) 5 mg PO DAILY@1800 [facility] Last Admin: 10/04/18 17:38 Dose: 5 mg CBC, BMP 10/04/18 06:25 10/04/18 06:25 Microbiology 10/01/18 10:45 Blood Culture - Preliminary Blood - Peripheral Venous NO GROWTH OBTAINED AFTER 96 HOURS, INCUBATION TO CONTINUE FOR 1 DAYS. 10/01/18 11:00 Blood Culture - Preliminary Blood - Peripheral Venous NO GROWTH OBTAINED AFTER 96 HOURS, INCUBATION TO CONTINUE FOR 1 DAYS. Physical Examination Constitutional: Yes: No Distress, Calm. Cardiovascular: Yes: Regular Rate and Rhythm Respiratory: Yes: CTA Bilaterally Gastrointestinal: Yes: Normal Bowel Sounds, Soft, Other (colostomy- functioning) . No: Tenderness Neuro--alert and awake Imaging - Results Chest X-ray: Image Reviewed (no infiltrate) Cat Scan: Report Reviewed Ultrasound: Report Reviewed EKG: Image Reviewed (sinus) Problem List - Problems (1) DVT (deep venous thrombosis) Code(s): I82.409 - ACUTE EMBOLISM AND THOMBOS UNSP DEEP VN UNSP LOWER EXTREMITY Qualifiers: DVT location: lower extremity Affected thrombotic vein of extremity: unspecified vein of extremity Chronicity: unspecified Laterality: unspecified laterality Qualified Code(s): I82.409 - Acute embolism and thrombosis of unspecified deep veins of unspecified lower extremity (2) Metastatic colon cancer to liver Code(s): C18.9 - MALIGNANT NEOPLASM OF COLON, UNSPECIFIED; C78.7 - SECONDARY MALIG NEOPLASM OF LIVER AND INTRAHEPATIC BILE DUCT (3) Adenocarcinoma Code(s): C80.1 - MALIGNANT (PRIMARY) NEOPLASM, UNSPECIFIED (4) Anemia due to blood loss, chronic Code(s): D50.0 - IRON DEFICIENCY ANEMIA SECONDARY TO BLOOD LOSS (CHRONIC) Assessment/Plan Stable off heparin -- inr therapeutic continue other meds encourge eating taking ensure also monitor labs/ inr oncology to follow. Renal following -- appreciated Will follow
[2018-10-05 18:14] LABS: PROTHROMBIN TIME (PATIENT) 51.7 SEC (9.7-13.0)
[2018-10-05 18:29] LABS: INR 4.32 (0.83-1.09)
[2018-10-05] MEDS: WARFARIN NA 5 MG TABLET (UD) PO SCH (18:43)
[2018-10-05] MEDS: DOCUSATE SODIUM 100 MG CAPSULE (FP) PO SCH (21:41)
[2018-10-06] MEDS: SODIUM CHLORIDE 1,000 ML IV SCH ×2 (02:05→10:24)
[2018-10-06 07:24] LABS: PROTHROMBIN TIME (PATIENT) 48.8 SEC (9.7-13.0)
[2018-10-06 08:06] LABS: ALBUMIN 0.8 g/dl (3.4-5.0); ALK PHOS 1116 U/L (45-117); ANION GAP 8 MMOL/L (8-16); BILIRUBIN,TOTAL 0.7 mg/dL (0.2-1); BLOOD UREA NITROGEN 34 mg/dL (7-18); CHLORIDE 111 mmol/L (98-107); CO2 21 mmol/L (21-32); CREATININE 2.5 mg/dL (0.55-1.3); GLUCOSE,RANDOM 72 mg/dL (74-106); POTASSIUM 3.7 mmol/L (3.5-5.1); SGOT/AST 43 U/L (15-37); SGPT/ALT 15 U/L (13-61); SODIUM 140 mmol/L (136-145); TOT PROT 4.2 g/dl (6.4-8.2)
[2018-10-06 08:08] LABS: CALCIUM 6.5 mg/dL (8.5-10.1)
[2018-10-06 08:29] LABS: BASO % 0.2 % (0-2.0); EOS % 0.2 % (0-4.5); HEMATOCRIT 23.1 % (35.4-49); LYMPH % 8.5 % (8-40); MCH 29.3 pg (25.7-33.7); MCHC 34.6 g/dl (32.0-35.9); MEAN CELL VOLUME 84.7 fl (80-96); MEAN PLT VOLUME 8.2 fl (7.5-11.1); MONO % 12.4 % (3.8-10.2); NEUT % 78.7 % (42.8-82.8); PLATELET COUNT 285 K/MM3 (134-434); RBC 2.73 M/mm3 (4.00-5.60); RDW 16.9 % (11.9-15.9); WHITE BLOOD COUNT 8.1 K/mm3 (4.0-10.0)
[2018-10-06 08:52] LABS: INR 4.08 (0.83-1.09)
[2018-10-06] MEDS: PANTOPRAZOLE 40 MG TABLET (FP) PO SCH (10:25)
--- NOTE | 2018-10-06 11:45 | PN ---
Progress Note (short form) - Note Progress Note: pt seen/ examined awake/ comfortable denies pain family at bedside Vital Signs Temp 97.6 F 10/06/18 06:00 Pulse 93 H 10/06/18 06:00 Resp 18 10/06/18 06:00 BP 115/87 10/06/18 06:00 Pulse Ox 95 10/05/18 22:00 Intake & Output 10/05/18 10/05/18 10/06/18 11:59 23:59 11:59 Intake Total 825 500 725 Output Total 500 Balance 825 500 225 Intake: IV 825 500 725 Normal Saline - 1,000 ml 825 500 725 @ 125 mls/hr IV ASDIR [facility] Rx#:[id number] Output: Urine 500 Void 500 Other: Voiding Method Urinal Urinal Urinal Bowel Movement Yes: 1 Active Medications Docusate Sodium (Colace -) 100 mg PO HS [facility] Last Admin: 10/05/18 21:41 Dose: Not Given Fentanyl (Duragesic 12mcg Patch -) 1 patch TD Q72H [facility] [place] Stop: 10/10/18 16:14 Last Admin: 10/03/18 18:25 Dose: 1 patch Sodium Chloride (Normal Saline -) 1,000 mls @ 125 mls/hr IV ASDIR [facility] [place] Last Admin: 10/06/18 10:24 Dose: 125 mls/hr Miscellaneous (Duragesic Patch Waste) 1 each TD PRN PRN PRN Reason: PAIN Last Admin: 10/03/18 18:30 Dose: 1 each Oxycodone HCl (Oxycontin -) 10 mg PO BID PRN PRN Reason: PAIN LEVEL 6-10 Last Admin: 10/03/18 09:45 Dose: 10 mg Pantoprazole Sodium (Protonix -) 40 mg PO DAILY [facility] [place] Last Admin: 10/06/18 10:25 Dose: 40 mg CBC, BMP 10/06/18 06:15 10/06/18 06:15 Microbiology 10/01/18 10:45 Blood Culture - Final Blood - Peripheral Venous NO GROWTH AFTER 5 DAYS INCUBATION 10/01/18 11:00 Blood Culture - Final Blood - Peripheral Venous NO GROWTH AFTER 5 DAYS INCUBATION INR, PTT INR 4.08 (0.83-1.09) H* 10/06/18 06:15 Physical Examination Constitutional: Yes: No Distress, Calm. Cardiovascular: Yes: Regular Rate and Rhythm Respiratory: Yes: CTA Bilaterally Gastrointestinal: Yes: Normal Bowel Sounds, Soft, Other (colostomy- functioning) . No: Tenderness Neuro--alert and awake + SCROTAL EDEMA Imaging - Results Chest X-ray: Image Reviewed (no infiltrate) Cat Scan: Report Reviewed Ultrasound: Report Reviewed EKG: Image Reviewed (sinus) Problem List - Problems (1) DVT (deep venous thrombosis) Code(s): I82.409 - ACUTE EMBOLISM AND THOMBOS UNSP DEEP VN UNSP LOWER EXTREMITY Qualifiers: DVT location: lower extremity Affected thrombotic vein of extremity: unspecified vein of extremity Chronicity: unspecified Laterality: unspecified laterality Qualified Code(s): I82.409 - Acute embolism and thrombosis of unspecified deep veins of unspecified lower extremity (2) Metastatic colon cancer to liver Code(s): C18.9 - MALIGNANT NEOPLASM OF COLON, UNSPECIFIED; C78.7 - SECONDARY MALIG NEOPLASM OF LIVER AND INTRAHEPATIC BILE DUCT (3) Adenocarcinoma Code(s): C80.1 - MALIGNANT (PRIMARY) NEOPLASM, UNSPECIFIED (4) Anemia due to blood loss, chronic Code(s): D50.0 - IRON DEFICIENCY ANEMIA SECONDARY TO BLOOD LOSS (CHRONIC) Assessment/Plan Stable hold coumadin -- inr supratherapeutic continue other meds encourge eating taking ensure also monitor labs/ inr oncology to follow. Renal following -- Will follow. Discussed with nursing staff also
--- NOTE | 2018-10-06 12:21 | PN ---
Progress Note (short form) - Note Progress Note: Renal follow up for ISMAEL Vital Signs Temperature 97.6 F 10/06/18 06:00 Pulse Rate 93 H 10/06/18 06:00 Respiratory Rate 18 10/06/18 06:00 Blood Pressure 115/87 10/06/18 06:00 O2 Sat by Pulse Oximetry (%) 95 10/05/18 22:00 Intake & Output 10/03/18 10/04/18 10/05/18 10/06/18 23:59 23:59 23:59 23:59 Intake Total 1511 3279 1325 725 Output Total 200 800 500 Balance 1311 2479 1325 225 Weight 86.636 kg CBC, BMP 10/06/18 06:15 10/06/18 06:15 Laboratory Tests 08/27/18 08/27/18 08/28/18 06:10 13:40 06:15 Calcium 6.8 L* 7.0 L Phosphorus 4.8 Magnesium 2.6 H Total Protein Albumin 0.8 L Urine Protein Urine Eosinophils Pending 08/28/18 09/01/18 09/02/18 06:15 06:50 06:15 Calcium 7.0 L 7.0 L Phosphorus 4.8 Magnesium Total Protein 4.0 L Albumin 0.9 L 1.0 L Urine Protein 2+ H Urine Eosinophils 09/10/18 10/02/18 10/06/18 11:30 05:00 06:15 Calcium 7.0 L 6.9 L* 6.5 L* Phosphorus Magnesium Total Protein Albumin 1.1 L 1.0 L 0.8 L Urine Protein Urine Eosinophils Renal US, no renal vein thrombosis, no hydronephrosis Current Medications Docusate Sodium (Colace -) 100 mg PO HS [facility] Last Admin: 10/05/18 21:41 Dose: Not Given Fentanyl (Duragesic 12mcg Patch -) 1 patch TD Q72H [facility] Stop: 10/10/18 16:14 Last Admin: 10/03/18 18:25 Dose: 1 patch Sodium Chloride (Normal Saline -) 1,000 mls @ 125 mls/hr IV ASDIR [facility] Last Admin: 10/06/18 10:24 Dose: 125 mls/hr Miscellaneous (Duragesic Patch Waste) 1 each TD PRN PRN PRN Reason: PAIN Last Admin: 10/03/18 18:30 Dose: 1 each Oxycodone HCl (Oxycontin -) 10 mg PO BID PRN PRN Reason: PAIN LEVEL 6-10 Last Admin: 10/03/18 09:45 Dose: 10 mg Pantoprazole Sodium (Protonix -) 40 mg PO DAILY [facility] Last Admin: 10/06/18 10:25 Dose: 40 mg 48 year old AA gentleman with hx of Metastatic Colon Ca s/p Colectomy, Hypertension, recent admission with ISMAEL requiring dialysis who presented from the [place] with swelling of his LE and found to have extrensive DVT with ISMAEL. #ISMAEL likely due to hypovolemia (low BP) vs. ATN vs. Renal Vein thrombosis #LE DVT #Anemia #Metastatic Colon Ca Thank you Sami Pulido DO
[2018-10-06 13:35] LABS: ANISOCYTOSIS 2+; MACROCYTOSIS 0; OVALOCYTE 1+; PLATELET ESTIMATE NORMAL; TARGET CELLS 1+
[2018-10-06] MEDS: fentaNYL 12mcg/hr PATCH.TD72 TD SCH (17:09)
[2018-10-06] MEDS: FENTANYL PATCH WASTE TD PRN (17:17)
--- NOTE | 2018-10-06 19:21 | PN ---
Progress Note (short form) - Note Progress Note: Renal follow up for ISMAEL Pt seen and examined at the bedside no acute complaints no sob, cp, abd pain making urine Vital Signs Temperature 97.6 F 10/06/18 06:00 Pulse Rate 93 H 10/06/18 06:00 Respiratory Rate 18 10/06/18 06:00 Blood Pressure 115/87 10/06/18 06:00 O2 Sat by Pulse Oximetry (%) 95 10/05/18 22:00 Intake & Output 10/03/18 10/04/18 10/05/18 10/06/18 23:59 23:59 23:59 23:59 Intake Total 1511 3279 1325 725 Output Total 200 800 500 Balance 1311 2479 1325 225 Weight 86.636 kg NAD awake and alert neck supple, no JVD dec BS at lung bases RRR ++ sacral and LE edema CBC, BMP 10/06/18 06:15 10/06/18 06:15 Laboratory Tests 08/27/18 08/27/18 08/28/18 06:10 13:40 06:15 Calcium 6.8 L* 7.0 L Phosphorus 4.8 Magnesium 2.6 H Total Protein Albumin 0.8 L Urine Protein Urine Eosinophils Pending 08/28/18 09/01/18 09/02/18 06:15 06:50 06:15 Calcium 7.0 L 7.0 L Phosphorus 4.8 Magnesium Total Protein 4.0 L Albumin 0.9 L 1.0 L Urine Protein 2+ H Urine Eosinophils 09/10/18 10/02/18 10/06/18 11:30 05:00 06:15 Calcium 7.0 L 6.9 L* 6.5 L* Phosphorus Magnesium Total Protein Albumin 1.1 L 1.0 L 0.8 L Urine Protein Urine Eosinophils Renal US, no renal vein thrombosis, no hydronephrosis Current Medications Docusate Sodium (Colace -) 100 mg PO HS [facility] Last Admin: 10/05/18 21:41 Dose: Not Given Fentanyl (Duragesic 12mcg Patch -) 1 patch TD Q72H [facility] Stop: 10/10/18 16:14 Last Admin: 10/03/18 18:25 Dose: 1 patch Sodium Chloride (Normal Saline -) 1,000 mls @ 125 mls/hr IV ASDIR [facility] Last Admin: 10/06/18 10:24 Dose: 125 mls/hr Miscellaneous (Duragesic Patch Waste) 1 each TD PRN PRN PRN Reason: PAIN Last Admin: 10/03/18 18:30 Dose: 1 each Oxycodone HCl (Oxycontin -) 10 mg PO BID PRN PRN Reason: PAIN LEVEL 6-10 Last Admin: 10/03/18 09:45 Dose: 10 mg Pantoprazole Sodium (Protonix -) 40 mg PO DAILY [facility] Last Admin: 10/06/18 10:25 Dose: 40 mg 48 year old AA gentleman with hx of Metastatic Colon Ca s/p Colectomy, Hypertension, recent admission with ISMAEL requiring dialysis who presented from the [place] with swelling of his LE and found to have extrensive DVT with ISMAEL. #ISMAEL likely due to hypovolemia (low BP) vs. ATN vs. Renal Vein thrombosis #LE DVT #Anemia #Metastatic Colon Ca Renal function essentially unchanged and pt is non-oliguric no indication for LOGISTICS MANAGEMENT SPECIALIST at the present time continue supportive care d/c IVF as pt is developing LE edema trend renal function and electrolytes Thank you Sami Pulido DO
[2018-10-06] MEDS: DOCUSATE SODIUM 100 MG CAPSULE (FP) PO SCH (22:10)
--- NOTE | 2018-10-06 23:19 | PN ---
Progress Note (short form) - Note Progress Note: Patient seen and examined More awake, alert No specific complaints Last Vital Signs Temp Pulse Resp BP Pulse Ox 98.4 F 101 H 18 118/88 97 10/06/18 18:00 10/06/18 18:00 10/06/18 21:09 10/06/18 18:00 10/06/18 21:09 Cor: RSR, No murmurs, No gallops Lungs: Clear to P&A Abd: Soft, Normal bowel sounds, No organomegaly Ext:No significant edema Abnormal Lab Results 10/06/18 10/06/18 10/06/18 06:15 06:15 06:15 RBC 2.73 L Hgb 8.0 L Hct 23.1 L RDW 16.9 H Neutrophils % (Manual) 83.0 H Lymphocytes % (Manual) 3.0 L D Monocytes % 12.4 H PT with INR 48.80 H INR 4.08 H* Chloride 111 H BUN 34 H Creatinine 2.5 H Random Glucose 72 L Calcium 6.5 L* AST 43 H Alkaline Phosphatase 1116 H Total Protein 4.2 L Albumin 0.8 L Active Medications Generic Name Dose Route Start Last Admin Trade Name Freq PRN Reason Stop Dose Admin Docusate Sodium 100 mg 10/01/18 22:00 10/06/18 22:10 Colace - PO 100 mg HS [facility] Administration Fentanyl 1 patch 10/03/18 16:15 10/06/18 17:09 Duragesic 12mcg Patch - TD 10/10/18 16:14 1 patch Q72H [facility] Administration IV Flush 10 ml 10/06/18 18:32 Vu-Cath Flush IVPUSH PRN PRN FLUSH Miscellaneous 1 each 10/03/18 15:37 10/06/18 17:17 Duragesic Patch Waste TD 1 each PRN PRN Administration PAIN Oxycodone HCl 10 mg 10/01/18 19:21 10/03/18 09:45 Oxycontin - PO 10 mg BID PRN Administration PAIN LEVEL 6-10 Pantoprazole Sodium 40 mg 10/02/18 10:00 10/06/18 10:25 Protonix - PO 40 mg DAILY [facility] Administration A/P 48 y/o patient with metastatic rectal cancer, s/p FOLFOX/avastin Now on irinotecan s/p RT to sacral mass ISMAEL -- ? hypotension Improving slowly Will await further imrovement Decreased pain meds stopped coreg DVT -- on coumadin. Holding coumadin due to supratherapeutic INR surgery f/u about wound
[2018-10-07 07:06] LABS: BASO % 0.5 % (0-2.0); EOS % 0.1 % (0-4.5); HEMATOCRIT 25.1 % (35.4-49); HEMOGLOBIN 8.1 GM/dL (11.7-16.9); LYMPH % 9.3 % (8-40); MCH 27.7 pg (25.7-33.7); MCHC 32.3 g/dl (32.0-35.9); MEAN PLT VOLUME 7.5 fl (7.5-11.1); MONO % 9.7 % (3.8-10.2); NEUT % 80.4 % (42.8-82.8); PLATELET COUNT 266 K/MM3 (134-434); RBC 2.91 M/mm3 (4.00-5.60); RDW 16.8 % (11.9-15.9)
--- NOTE | 2018-10-07 07:57 | CONSULT ---
Consult Consult Specialty:: general surgery Reason for Consultation:: leg wound - History of Present Illness Chief Complaint: leg wound History of Present Illness: 48 yo male PMH HTN, Metastatic Colon Cancer with lung mets s/p colectomy and colostomy who is sent in by his oncologist for chemotherapy. The patient has been managed on an outpatient basis for his metastatic colon cancer with multiple rounds of different chemotherapies. He notes that he had a wound infection as well and has been feeling more fatigued lately as well. He otherwise denies fevers, chills, SOB, chest, pain, nausea, vomiting, abdominal pain, or changes with urination or bowel movements. Left leg edema - found to have extensive DVT. We were called for recommendations. 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: Yes: CVA (with dizziness and LLE paresis about 1 year ago which resolved at [facility]) Cardio/Vascular: Yes: HTN, Hyperlipdemia Gastrointestinal: Yes: Cancer, Constipation - Past Surgical History Past Surgical History: Yes: Colostomy - Alcohol/Substance Use Hx Alcohol Use: No History of Substance Use: reports: None - Smoking History Smoking history: Never smoked Have you smoked in the past 12 months: No If you are a former smoker, when did you quit?: 1997 - Social History Usual Living Arrangement: With Spouse ADL: Independent 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 History of Recent Travel: No Home Medications - Allergies Allergies/Adverse Reactions: Allergies Allergy/AdvReac Type Severity Reaction Status Date / Time shellfish derived Allergy Verified 10/01/18 10:22 - Home Medications Home Medications: Ambulatory Orders Amlodipine Besylate [Norvasc -] 5 mg PO DAILY 10/01/18 Carvedilol [Coreg -] 12.5 mg PO BID 10/01/18 Docusate Sodium [Colace -] 100 mg PO HS 10/01/18 FENTANYL 25mcg PATCH [DURAGESIC 25mcg PATCH -] 1 each TD Q72H 10/01/18 Oxycodone HCl [Oxycodone HCl ER] 10 mg PO BID PRN 10/01/18 Pantoprazole Sodium 40 mg PO DAILY 10/01/18 Family Disease History - Family Disease History Family Disease History: CA: Sister ( ovarian cancer in her 30s), Other: Father (CVA, HTN, colon polyps ), Mother (HTN, no polyps on colonoscopy) Review of Systems - Review of Systems Constitutional: denies: Chills, Fever Eyes: denies: Blind Spots, Recent Change in Vision HENT: denies: Difficult Swallowing, Throat Pain Neck: denies: Decreased ROM, Pain on Movement, Stiffness Cardiovascular: denies: Chest Pain, Palpitations Respiratory: denies: Cough, SOB Gastrointestinal: denies: Abdominal Pain, Constipation, Diarrhea Genitourinary: denies: Burning, Discharge, Dysuria Breasts: reports: No Symptoms Reported. denies: Pain Musculoskeletal: denies: Back Pain, Muscle Pain, Muscle Cramps Integumentary: denies: Blister, Bruising, Lump, Rash Neurological: denies: Seizure, Syncope Endocrine: denies: Unexplained Weight Gain, Unexplained Weight Loss Hematology/Lymphatic: denies: Easily Bruised, Excessive Bleeding Psychiatric: denies: Anxiety, Depression Physical Exam Vital Signs: Vital Signs Temperature 97.4 F L 10/07/18 06:00 Pulse Rate 99 H 10/07/18 06:00 Respiratory Rate 20 10/07/18 06:00 Blood Pressure 125/89 10/07/18 06:00 O2 Sat by Pulse Oximetry (%) 97 10/06/18 21:09 Vital Signs Period Temp Pulse Resp BP Sys/Bal Pulse Ox Last 24 Hr 97.6 F-98.5 F 85-94 18-20 116-126/76-92 96-98 Constitutional: Yes: No Distress, Calm, Cachectic Eyes: Yes: Conjunctiva Clear, EOM Intact HENT: Yes: Atraumatic, Normocephalic Neck: Yes: Supple, Trachea Midline Cardiovascular: Yes: Regular Rate and Rhythm Respiratory: Yes: Regular, CTA Bilaterally Gastrointestinal: Yes: Normal Bowel Sounds, Soft. No: Tenderness ...Rectal Exam: Yes: Deferred Renal/: No: CVA Tenderness - Left, CVA Tenderness - Right Breast(s): Yes: Breast Implants Musculoskeletal: Yes: Back Pain, Joint Swelling, Muscle Weakness Extremities: No: Cool, Cyanosis Edema: Yes Edema: LUE: Trace, RUE: Trace, LLE: 3+, RLE: Trace Peripheral Pulses WNL: Yes Integumentary: Yes: Other (left calf wound). No: Erythema Wound/Incision: Yes: Clean/Dry, Unapproximated Neurological: Yes: Alert, Confusion, Loss of Sensation, Unsteady Gait. No: Oriented Psychiatric: Yes: Alert. No: Oriented Labs: CBC, BMP 10/07/18 06:30 Imaging - Results Chest X-ray: Report Reviewed, Image Reviewed Ultrasound: Report Reviewed (LLE DVT), Image Reviewed Problem List - Problems (1) Edema of left lower leg due to peripheral venous insufficiency Assessment/Plan: 48yo male with MMP presented with a LLE DVT, 3 to 4+ pitting edema and a chronic weeping calf wound after and I&D. no acute intervention needed. treat dvt/ medical management absorbant dry dressing by nurse prn LLE elevation above heart level pt evaluation Thank you for the opportunity to participate in the care of this patient. Code(s): I87.2 - VENOUS INSUFFICIENCY (CHRONIC) (PERIPHERAL); R60.0 - LOCALIZED EDEMA (2) Calf abscess Code(s): L02.419 - CUTANEOUS ABSCESS OF LIMB, UNSPECIFIED (3) ISMAEL (acute kidney injury) Code(s): N17.9 - ACUTE KIDNEY FAILURE, UNSPECIFIED (4) DVT (deep venous thrombosis) Code(s): I82.409 - ACUTE EMBOLISM AND THOMBOS UNSP DEEP VN UNSP LOWER EXTREMITY Qualifiers: DVT location: lower extremity Affected thrombotic vein of extremity: unspecified vein of extremity Chronicity: unspecified Laterality: unspecified laterality Qualified Code(s): I82.409 - Acute embolism and thrombosis of unspecified deep veins of unspecified lower extremity (5) Metastatic colon cancer to liver Code(s): C18.9 - MALIGNANT NEOPLASM OF COLON, UNSPECIFIED; C78.7 - SECONDARY MALIG NEOPLASM OF LIVER AND INTRAHEPATIC BILE DUCT (6) Adenocarcinoma Code(s): C80.1 - MALIGNANT (PRIMARY) NEOPLASM, UNSPECIFIED (7) Anemia due to blood loss, chronic Code(s): D50.0 - IRON DEFICIENCY ANEMIA SECONDARY TO BLOOD LOSS (CHRONIC) (8) Hypertension Code(s): I10 - ESSENTIAL (PRIMARY) HYPERTENSION Qualifiers: Hypertension type: essential hypertension Qualified Code(s): I10 - Essential (primary) hypertension
[2018-10-07 07:59] LABS: ALBUMIN 0.8 g/dl (3.4-5.0); ALK PHOS 1191 U/L (45-117); ANION GAP 8 MMOL/L (8-16); BILIRUBIN,TOTAL 0.9 mg/dL (0.2-1); BLOOD UREA NITROGEN 35 mg/dL (7-18); CHLORIDE 113 mmol/L (98-107); CO2 20 mmol/L (21-32); CREATININE 2.4 mg/dL (0.55-1.3); GLUCOSE,RANDOM 62 mg/dL (74-106); POTASSIUM 3.9 mmol/L (3.5-5.1); SGOT/AST 59 U/L (15-37); SGPT/ALT 16 U/L (13-61); SODIUM 141 mmol/L (136-145); TOT PROT 4.4 g/dl (6.4-8.2)
[2018-10-07 08:03] LABS: CALCIUM 6.8 mg/dL (8.5-10.1)
[2018-10-07 08:55] LABS: PROTHROMBIN TIME (PATIENT) 53.5 SEC (9.7-13.0)
[2018-10-07 09:16] LABS: INR 4.47 (0.83-1.09)
[2018-10-07] MEDS: PANTOPRAZOLE 40 MG TABLET (FP) PO SCH (09:54)
[2018-10-07] MEDS: PORTA CATH FLUSH 10 ML IVPUSH PRN (09:54)
--- NOTE | 2018-10-07 11:41 | PN ---
Progress Note (short form) - Note Progress Note: has pain in left leg- not so severe Can only sit at the side of bed during physical therapy No chest pain Vital Signs - 24 hr 10/06/18 10/06/18 10/06/18 14:36 18:00 21:09 Temperature 98.2 F 98.4 F Pulse Rate 99 H 101 H Respiratory 20 18 18 Rate Blood Pressure 114/84 118/88 O2 Sat by Pulse 97 Oximetry (%) 10/06/18 10/07/18 10/07/18 22:00 06:00 09:50 Temperature 98.9 F 97.4 F L 98.2 F Pulse Rate 97 H 99 H 101 H Respiratory 20 20 20 Rate Blood Pressure 123/89 125/89 128/99 O2 Sat by Pulse Oximetry (%) Current Medications Generic Name Dose Route Start Last Admin Trade Name Freq PRN Reason Stop Dose Admin Docusate Sodium 100 mg 10/01/18 22:00 10/06/18 22:10 Colace - PO 100 mg HS AJ Administration Fentanyl 1 patch 10/03/18 16:15 10/06/18 17:09 Duragesic 12mcg Patch - TD 10/10/18 16:14 1 patch Q72H AJ Administration IV Flush 10 ml 10/06/18 18:32 Vu-Cath Flush IVPUSH PRN PRN FLUSH Miscellaneous 1 each 10/03/18 15:37 10/06/18 17:17 Duragesic Patch Waste TD 1 each PRN PRN Administration PAIN Pantoprazole Sodium 40 mg 10/02/18 10:00 10/07/18 09:54 Protonix - PO 40 mg DAILY AJ Administration Laboratory Results - last 24 hr 10/06/18 10/07/18 10/07/18 06:15 06:30 06:30 WBC 9.0 RBC 2.91 L Hgb 8.1 L Hct 25.1 L MCV 86.0 MCH 27.7 MCHC 32.3 RDW 16.8 H Plt Count 266 MPV 7.5 Absolute Neuts (auto) 7.2 Neutrophils % 80.4 Neutrophils % (Manual) 83.0 H Band Neutrophils % 0.0 Lymphocytes % 9.3 Lymphocytes % (Manual) 3.0 L D Monocytes % 9.7 Monocytes % (Manual) 5 Eosinophils % 0.1 Eosinophils % (Manual) 1.0 D Basophils % 0.5 Basophils % (Manual) 2.0 D Myelocytes % (Man) 0 Promyelocytes % (Man) 0 Blast Cells % (Manual) 0 Nucleated RBC % 0 Metamyelocytes 1 D Hypochromia 1+ Platelet Estimate Normal Polychromasia 1+ Poikilocytosis 0 Anisocytosis 2+ Microcytosis 1+ Macrocytosis 0 Target Cells 1+ Ovalocytes 1+ Stomatocytes 1+ PT with INR 53.50 H INR 4.47 H* Sodium Potassium Chloride Carbon Dioxide Anion Gap BUN Creatinine Creat Clearance w eGFR Random Glucose Calcium Total Bilirubin AST ALT Alkaline Phosphatase Total Protein Albumin 10/07/18 06:30 WBC RBC Hgb Hct MCV MCH MCHC RDW Plt Count MPV Absolute Neuts (auto) Neutrophils % Neutrophils % (Manual) Band Neutrophils % Lymphocytes % Lymphocytes % (Manual) Monocytes % Monocytes % (Manual) Eosinophils % Eosinophils % (Manual) Basophils % Basophils % (Manual) Myelocytes % (Man) Promyelocytes % (Man) Blast Cells % (Manual) Nucleated RBC % Metamyelocytes Hypochromia Platelet Estimate Polychromasia Poikilocytosis Anisocytosis Microcytosis Macrocytosis Target Cells Ovalocytes Stomatocytes PT with INR INR Sodium 141 Potassium 3.9 Chloride 113 H Carbon Dioxide 20 L Anion Gap 8 BUN 35 H Creatinine 2.4 H Creat Clearance w eGFR 28.92 Random Glucose 62 L Calcium 6.8 L* Total Bilirubin 0.9 AST 59 H ALT 16 Alkaline Phosphatase 1191 H Total Protein 4.4 L Albumin 0.8 L S1 S 2 RRR Lungs clear Abd- soft, NT Edema+ A/P renal function about the same continue with meds Surgeon consulted unsure when pt may start chemo continue with physical therapy INR supratherapeutic-- hold Coumadin Problem List - Problems (1) DVT (deep venous thrombosis) Code(s): I82.409 - ACUTE EMBOLISM AND THOMBOS UNSP DEEP VN UNSP LOWER EXTREMITY Qualifiers: DVT location: lower extremity Affected thrombotic vein of extremity: unspecified vein of extremity Chronicity: unspecified Laterality: unspecified laterality Qualified Code(s): I82.409 - Acute embolism and thrombosis of unspecified deep veins of unspecified lower extremity (2) Metastatic colon cancer to liver Code(s): C18.9 - MALIGNANT NEOPLASM OF COLON, UNSPECIFIED; C78.7 - SECONDARY MALIG NEOPLASM OF LIVER AND INTRAHEPATIC BILE DUCT (3) Adenocarcinoma Code(s): C80.1 - MALIGNANT (PRIMARY) NEOPLASM, UNSPECIFIED (4) Anemia due to blood loss, chronic Code(s): D50.0 - IRON DEFICIENCY ANEMIA SECONDARY TO BLOOD LOSS (CHRONIC) (5) Hypoalbuminemia due to protein-calorie malnutrition Code(s): E46 - UNSPECIFIED PROTEIN-CALORIE MALNUTRITION
[2018-10-07 13:05] LABS: ANISOCYTOSIS 1+; MACROCYTOSIS 0; PLATELET ESTIMATE NORMAL
--- NOTE | 2018-10-07 20:50 | PN ---
Progress Note (short form) - Note Progress Note: Renal follow up for ISMAEL Pt seen and examined at the bedside denies any sob, cp, abd pain reports good oral intake no abd pain, diarrhea making urine off IVF Vital Signs Temperature 98.0 F 10/07/18 18:14 Pulse Rate 100 H 10/07/18 18:14 Respiratory Rate 20 10/07/18 18:14 Blood Pressure 119/81 10/07/18 18:14 O2 Sat by Pulse Oximetry (%) 97 10/07/18 10:00 NAD awake and alert neck supple, no JVD dec BS at lung bases RRR ++ sacral and LE edema CBC, BMP 10/07/18 06:30 10/07/18 06:30 Current Medications Docusate Sodium (Colace -) 100 mg PO HS AJ Last Admin: 10/06/18 22:10 Dose: 100 mg Fentanyl (Duragesic 12mcg Patch -) 1 patch TD Q72H AJ Stop: 10/10/18 16:14 Last Admin: 10/06/18 17:09 Dose: 1 patch IV Flush (Vu-Cath Flush) 10 ml IVPUSH PRN PRN PRN Reason: FLUSH Last Admin: 10/07/18 09:54 Dose: 10 ml Miscellaneous (Duragesic Patch Waste) 1 each TD PRN PRN PRN Reason: PAIN Last Admin: 10/06/18 17:17 Dose: 1 each Pantoprazole Sodium (Protonix -) 40 mg PO DAILY AJ Last Admin: 10/07/18 09:54 Dose: 40 mg 48 year old AA gentleman with hx of Metastatic Colon Ca s/p Colectomy, Hypertension, recent admission with ISMAEL requiring dialysis [facility] and found to have extrensive DVT with ISMAEL. #ISMAEL likely due to hypovolemia (low BP) vs. ATN vs. Renal Vein thrombosis #LE DVT #Anemia #Metastatic Colon Ca Renal function stable at this time off IVF would continue supportive care suspect pt may have hepatic dysfunction and possibly hepato-renal syndrome if renal function unchanged can consider trial of IV albumin and octreotide Thank you Sami Pitt
[2018-10-07] MEDS: DOCUSATE SODIUM 100 MG CAPSULE (FP) PO SCH (22:13)
[2018-10-08 08:20] LABS: ALBUMIN 0.8 g/dl (3.4-5.0); ALK PHOS 1171 U/L (45-117); ANION GAP 11 MMOL/L (8-16); BILIRUBIN,TOTAL 0.8 mg/dL (0.2-1); BLOOD UREA NITROGEN 39 mg/dL (7-18); CALCIUM 7.4 mg/dL (8.5-10.1); CHLORIDE 112 mmol/L (98-107); CO2 18 mmol/L (21-32); CREATININE 2.5 mg/dL (0.55-1.3); GLUCOSE,RANDOM 54 mg/dL (74-106); POTASSIUM 3.7 mmol/L (3.5-5.1); PROTHROMBIN TIME (PATIENT) 63.3 SEC (9.7-13.0); SGOT/AST 68 U/L (15-37); SGPT/ALT 17 U/L (13-61); SODIUM 141 mmol/L (136-145); TOT PROT 4.4 g/dl (6.4-8.2)
[2018-10-08 08:29] LABS: INR 5.28 (0.83-1.09)
[2018-10-08] MEDS: PANTOPRAZOLE 40 MG TABLET (FP) PO SCH (10:29)
--- NOTE | 2018-10-08 11:32 | PN ---
Progress Note (short form) - Note Progress Note: has pain in left leg- not so severe Can only sit at the side of bed during physical therapy No chest pain Vital Signs - 24 hr 10/07/18 10/07/18 10/07/18 13:39 18:14 21:00 Temperature 98.2 F 98.0 F Pulse Rate 100 H 100 H Respiratory 20 20 20 Rate Blood Pressure 119/99 119/81 O2 Sat by Pulse 97 Oximetry (%) 10/07/18 10/08/18 22:00 06:00 Temperature 98.1 F 97.8 F Pulse Rate 97 H 95 H Respiratory 20 20 Rate Blood Pressure 131/81 119/87 O2 Sat by Pulse Oximetry (%) Current Medications Generic Name Dose Route Start Last Admin Trade Name Freq PRN Reason Stop Dose Admin Albumin Human 25 gm 10/08/18 11:30 Albumin Human 25% IVPB 10/09/18 05:31 Q6H AJ Docusate Sodium 100 mg 10/01/18 22:00 10/07/18 22:13 Colace - PO 100 mg HS AJ Administration Fentanyl 1 patch 10/03/18 16:15 10/06/18 17:09 Duragesic 12mcg Patch - TD 10/10/18 16:14 1 patch Q72H AJ Administration IV Flush 10 ml 10/06/18 18:32 10/07/18 09:54 Vu-Cath Flush IVPUSH 10 ml PRN PRN Administration FLUSH Miscellaneous 1 each 10/03/18 15:37 10/06/18 17:17 Duragesic Patch Waste TD 1 each PRN PRN Administration PAIN Octreotide Acetate 100 mcg 10/08/18 14:00 Sandostatin - SQ TID AJ Pantoprazole Sodium 40 mg 10/02/18 10:00 10/08/18 10:29 Protonix - PO 40 mg DAILY AJ Administration Laboratory Results - last 24 hr 10/07/18 10/08/18 10/08/18 06:30 06:30 06:30 Neutrophils % (Manual) 81.8 Band Neutrophils % 2.0 Lymphocytes % (Manual) 10.1 D Monocytes % (Manual) 6 Eosinophils % (Manual) 0.0 D Basophils % (Manual) 0.0 Myelocytes % (Man) 0 Promyelocytes % (Man) 0 Blast Cells % (Manual) 0 Metamyelocytes 0 D Hypochromia 1+ Platelet Estimate Normal Polychromasia 0 Poikilocytosis 0 Anisocytosis 1+ Microcytosis 1+ Macrocytosis 0 PT with INR 63.30 H INR 5.28 H* Sodium 141 Potassium 3.7 Chloride 112 H Carbon Dioxide 18 L Anion Gap 11 BUN 39 H Creatinine 2.5 H Creat Clearance w eGFR 27.59 Random Glucose 54 L Calcium 7.4 L Total Bilirubin 0.8 AST 68 H ALT 17 Alkaline Phosphatase 1171 H Total Protein 4.4 L Albumin 0.8 L S1 S 2 RRR Lungs clear Abd- soft, NT Edema+ A/P renal function worse continue with meds Surgeon consulted INR elevated-- give Vit K ? unsure when pt may start chemo continue with physical therapy INR supratherapeutic-- hold Coumadin Problem List - Problems (1) DVT (deep venous thrombosis) Code(s): I82.409 - ACUTE EMBOLISM AND THOMBOS UNSP DEEP VN UNSP LOWER EXTREMITY Qualifiers: DVT location: lower extremity Affected thrombotic vein of extremity: unspecified vein of extremity Chronicity: unspecified Laterality: unspecified laterality Qualified Code(s): I82.409 - Acute embolism and thrombosis of unspecified deep veins of unspecified lower extremity (2) Metastatic colon cancer to liver Code(s): C18.9 - MALIGNANT NEOPLASM OF COLON, UNSPECIFIED; C78.7 - SECONDARY MALIG NEOPLASM OF LIVER AND INTRAHEPATIC BILE DUCT (3) Adenocarcinoma Code(s): C80.1 - MALIGNANT (PRIMARY) NEOPLASM, UNSPECIFIED (4) Anemia due to blood loss, chronic Code(s): D50.0 - IRON DEFICIENCY ANEMIA SECONDARY TO BLOOD LOSS (CHRONIC) (5) Hypoalbuminemia due to protein-calorie malnutrition Code(s): E46 - UNSPECIFIED PROTEIN-CALORIE MALNUTRITION
[2018-10-08] MEDS: ALBUMIN HUMAN 25% 12.5 GM/50 ML VIAL IVPB SCH ×3 (12:36→23:46)
[2018-10-08] MEDS: OCTREOTIDE ACETATE 100 MCG/1 ML SQ SCH ×2 (14:01→22:16)
--- NOTE | 2018-10-08 16:15 | PN ---
Progress Note (short form) - Note Progress Note: Renal follow up for ISMAEL Pt seen and examined at the bedside no acute complaints making urine denies any sob, cp, abd pain Vital Signs Temperature 98.4 F 10/08/18 14:06 Pulse Rate 96 H 10/08/18 14:06 Respiratory Rate 20 10/08/18 14:06 Blood Pressure 122/89 10/08/18 14:06 O2 Sat by Pulse Oximetry (%) 97 10/08/18 09:00 Intake & Output 10/05/18 10/06/18 10/07/18 10/08/18 23:59 23:59 23:59 23:59 Intake Total 1325 1025 1500 200 Output Total 900 700 Balance 1325 125 800 200 Weight 86.183 kg 85.82 kg NAD awake and alert neck supple, no JVD dec BS at lung bases RRR ++ sacral and LE edema CBC, BMP 10/07/18 06:30 10/08/18 06:30 Current Medications Albumin Human (Albumin Human 25%) 25 gm IVPB Q6H AJ Stop: 10/09/18 05:31 Last Admin: 10/08/18 12:36 Dose: 25 gm Docusate Sodium (Colace -) 100 mg PO HS AJ Last Admin: 10/07/18 22:13 Dose: 100 mg Fentanyl (Duragesic 12mcg Patch -) 1 patch TD Q72H AJ Stop: 10/10/18 16:14 Last Admin: 10/06/18 17:09 Dose: 1 patch IV Flush (Vu-Cath Flush) 10 ml IVPUSH PRN PRN PRN Reason: FLUSH Last Admin: 10/07/18 09:54 Dose: 10 ml Miscellaneous (Duragesic Patch Waste) 1 each TD PRN PRN PRN Reason: PAIN Last Admin: 10/06/18 17:17 Dose: 1 each Octreotide Acetate (Sandostatin -) 100 mcg SQ TID [facility] Last Admin: 10/08/18 14:01 Dose: 100 mcg Pantoprazole Sodium (Protonix -) 40 mg PO DAILY [facility] Last Admin: 10/08/18 10:29 Dose: 40 mg 48 year old AA gentleman with hx of Metastatic Colon Ca s/p Colectomy, Hypertension, recent admission with ISMAEL requiring dialysis who presented from the [place] with swelling of his LE and found to have extrensive DVT with ISMAEL. #ISMAEL r/o hepato-renal syndrome #LE DVT #Anemia #Metastatic Colon Ca Renal function unchanged will give trial of IV albumin 25g Q6h and octreotide IM for 24 hours with supicion of hepato-renal syndrome Thank you Sami Pitt
--- NOTE | 2018-10-08 17:00 | PN ---
Progress Note (short form) - Note Progress Note: Patient seen and examined Offers no specific complaints Last Vital Signs Temp Pulse Resp BP Pulse Ox 98.4 F 96 H 20 122/89 97 10/08/18 14:06 10/08/18 14:06 10/08/18 14:06 10/08/18 14:06 10/08/18 09:00 HEENT: EZEQUIEL, EOM Intact Oropharynx: No thrush, No mucositis, coated tongue Cor: RSR, No murmurs, No gallops Lungs: Clear to P&A Abd: Soft, Normal bowel sounds, No organomegaly, colostomy Ext: significant edema Skin: No rashes, Integument intact CBC, BMP 10/07/18 06:30 10/08/18 06:30 INR, PTT INR 5.28 (0.83-1.09) H* 10/08/18 06:30 Current Medications Generic Name Dose Route Start Last Admin Trade Name Freq PRN Reason Stop Dose Admin Albumin Human 25 gm 10/08/18 11:30 10/08/18 12:36 Albumin Human 25% IVPB 10/09/18 05:31 25 gm Q6H AJ Administration Docusate Sodium 100 mg 10/01/18 22:00 10/07/18 22:13 Colace - PO 100 mg HS AJ Administration Fentanyl 1 patch 10/03/18 16:15 10/06/18 17:09 Duragesic 12mcg Patch - TD 10/10/18 16:14 1 patch Q72H AJ Administration IV Flush 10 ml 10/06/18 18:32 10/07/18 09:54 Vu-Cath Flush IVPUSH 10 ml PRN PRN Administration FLUSH Miscellaneous 1 each 10/03/18 15:37 10/06/18 17:17 Duragesic Patch Waste TD 1 each PRN PRN Administration PAIN Octreotide Acetate 100 mcg 10/08/18 14:00 10/08/18 14:01 Sandostatin - SQ 100 mcg TID AJ Administration Pantoprazole Sodium 40 mg 10/02/18 10:00 10/08/18 10:29 Protonix - PO 40 mg DAILY AJ Administration Impression: Colon ca s/p FOLFOX, s/p RT to sacral mass, s/p cycle 2 of irinotecan ISMAEL LE edema Coagulopathy secondary coumadin Liver Mets LE DVT Plan: Continue to hold chemotherapy Trial of octreotide and albumin Holding a/c Daily monitoring of a/c - may need 1 mg sq of Vitamin K Ideally LMWH preferred to coumadin in malignancy related VTE.
[2018-10-08] MEDS ORDERED: PT OWN MED DRAWER 7, Y5N ONE ×2 (20:21→23:42)
[2018-10-08] MEDS: DOCUSATE SODIUM 100 MG CAPSULE (FP) PO SCH (22:16)
[2018-10-09] MEDS: PORTA CATH FLUSH 10 ML IVPUSH PRN ×2 (01:54→13:20)
[2018-10-09] MEDS ORDERED: PT OWN MED DRAWER 7, Y5N ONE (05:30)
[2018-10-09] MEDS: ALBUMIN HUMAN 25% 12.5 GM/50 ML VIAL IVPB SCH (05:32)
[2018-10-09] MEDS: OCTREOTIDE ACETATE 100 MCG/1 ML SQ SCH ×3 (06:05→22:46)
[2018-10-09 07:31] LABS: HEMATOCRIT 21.8 % (35.4-49); MCH 27.2 pg (25.7-33.7); MCHC 31.2 g/dl (32.0-35.9); MEAN CELL VOLUME 87.3 fl (80-96); MEAN PLT VOLUME 7.7 fl (7.5-11.1); PLATELET COUNT 200 K/MM3 (134-434); RBC 2.49 M/mm3 (4.00-5.60); RDW 17.5 % (11.9-15.9)
[2018-10-09 07:41] LABS: ANION GAP 14 MMOL/L (8-16); BLOOD UREA NITROGEN 40 mg/dL (7-18); CALCIUM 7.3 mg/dL (8.5-10.1); CHLORIDE 112 mmol/L (98-107); CO2 16 mmol/L (21-32); CREATININE 2.7 mg/dL (0.55-1.3); GLUCOSE,RANDOM 59 mg/dL (74-106); POTASSIUM 3.6 mmol/L (3.5-5.1); SODIUM 142 mmol/L (136-145)
[2018-10-09 08:06] LABS: HEMOGLOBIN 6.8 GM/dL (11.7-16.9); INR 7.88 (0.83-1.09)
[2018-10-09] MEDS: PANTOPRAZOLE 40 MG TABLET (FP) PO SCH (09:39)
[2018-10-09 11:10] LABS: HEMATOCRIT 22.5 % (35.4-49); HEMOGLOBIN 7.5 GM/dL (11.7-16.9); MCH 28.6 pg (25.7-33.7); MCHC 33.2 g/dl (32.0-35.9); MEAN CELL VOLUME 86.4 fl (80-96); MEAN PLT VOLUME 8.2 fl (7.5-11.1); PLATELET COUNT 236 K/MM3 (134-434); RDW 17.2 % (11.9-15.9); WHITE BLOOD COUNT 8.6 K/mm3 (4.0-10.0)
[2018-10-09] MEDS: SODIUM BICARBONATE 650 MG TABLET PO SCH ×2 (11:13→22:46)
[2018-10-09] MEDS ORDERED: PHYTONADIONE 10 MG/1 ML AMP SQ ONE ×2 (12:00→15:00)
--- NOTE | 2018-10-09 12:00 | PN ---
Progress Note (short form) - Note Progress Note: appears fatigued No bleeding episodes has serous drainage from left leg pain in left leg at times Vital Signs - 24 hr 10/08/18 10/08/18 10/08/18 14:06 18:40 21:00 Temperature 98.4 F 97.8 F Pulse Rate 96 H 94 H Respiratory 20 18 Rate Blood Pressure 122/89 116/88 O2 Sat by Pulse 98 Oximetry (%) 10/08/18 10/09/18 10/09/18 22:00 01:35 06:00 Temperature 97.6 F 98 F 98.5 F Pulse Rate 94 H 92 H 87 Respiratory 20 18 18 Rate Blood Pressure 118/91 123/76 125/91 O2 Sat by Pulse Oximetry (%) 10/09/18 08:38 Temperature 98.2 F Pulse Rate 88 Respiratory 18 Rate Blood Pressure 117/84 O2 Sat by Pulse Oximetry (%) Current Medications Generic Name Dose Route Start Last Admin Trade Name Freq PRN Reason Stop Dose Admin Docusate Sodium 100 mg 10/01/18 22:00 10/08/18 22:16 Colace - PO Not Given HS AJ Fentanyl 1 patch 10/03/18 16:15 10/06/18 17:09 Duragesic 12mcg Patch - TD 10/10/18 16:14 1 patch Q72H AJ Administration IV Flush 10 ml 10/06/18 18:32 10/09/18 01:54 Vu-Cath Flush IVPUSH 10 ml PRN PRN Administration FLUSH Miscellaneous 1 each 10/03/18 15:37 10/06/18 17:17 Duragesic Patch Waste TD 1 each PRN PRN Administration PAIN Octreotide Acetate 100 mcg 10/08/18 14:00 10/09/18 06:05 Sandostatin - SQ 100 mcg TID AJ Administration Pantoprazole Sodium 40 mg 10/02/18 10:00 10/09/18 09:39 Protonix - PO 40 mg DAILY AJ Administration Sodium Bicarbonate 650 mg 10/09/18 11:00 10/09/18 11:13 Sodium Bicarbonate - PO 650 mg BID AJ Administration Laboratory Results - last 24 hr 10/09/18 10/09/18 10/09/18 06:30 06:30 06:30 WBC 8.0 RBC 2.49 L Hgb 6.8 L* Hct 21.8 L MCV 87.3 MCH 27.2 MCHC 31.2 L RDW 17.5 H Plt Count 200 D MPV 7.7 PT with INR 95.00 H INR 7.88 H* Sodium 142 Potassium 3.6 Chloride 112 H Carbon Dioxide 16 L Anion Gap 14 BUN 40 H Creatinine 2.7 H Creat Clearance w eGFR 25.24 Random Glucose 59 L Lactic Acid Calcium 7.3 L 10/09/18 10/09/18 10:30 10:30 WBC 8.6 RBC 2.60 L Hgb 7.5 L Hct 22.5 L MCV 86.4 MCH 28.6 MCHC 33.2 RDW 17.2 H Plt Count 236 MPV 8.2 PT with INR INR Sodium Potassium Chloride Carbon Dioxide Anion Gap BUN Creatinine Creat Clearance w eGFR Random Glucose Lactic Acid 1.0 Calcium S1 S 2 RRR Lungs clear Abd- soft, NT Edema+ A/P renal function worse continue with meds transfusion ordered Vit K Coumadin on hold prognosis guarded Problem List - Problems (1) DVT (deep venous thrombosis) Code(s): I82.409 - ACUTE EMBOLISM AND THOMBOS UNSP DEEP VN UNSP LOWER EXTREMITY Qualifiers: DVT location: lower extremity Affected thrombotic vein of extremity: unspecified vein of extremity Chronicity: unspecified Laterality: unspecified laterality Qualified Code(s): I82.409 - Acute embolism and thrombosis of unspecified deep veins of unspecified lower extremity (2) Metastatic colon cancer to liver Code(s): C18.9 - MALIGNANT NEOPLASM OF COLON, UNSPECIFIED; C78.7 - SECONDARY MALIG NEOPLASM OF LIVER AND INTRAHEPATIC BILE DUCT (3) Adenocarcinoma Code(s): C80.1 - MALIGNANT (PRIMARY) NEOPLASM, UNSPECIFIED (4) Anemia due to blood loss, chronic Code(s): D50.0 - IRON DEFICIENCY ANEMIA SECONDARY TO BLOOD LOSS (CHRONIC) (5) Hypoalbuminemia due to protein-calorie malnutrition Code(s): E46 - UNSPECIFIED PROTEIN-CALORIE MALNUTRITION
[2018-10-09] MEDS: SODIUM CHLORIDE 1,000 ML IV SCH (14:15)
[2018-10-09] MEDS: fentaNYL 12mcg/hr PATCH.TD72 TD SCH (15:16)
[2018-10-09] MEDS: FENTANYL PATCH WASTE TD PRN (15:22)
--- NOTE | 2018-10-09 16:07 | PN ---
Progress Note (short form) - Note Progress Note: ID CONSULT DICTATED SEROUS DRAINAGE NOT GROSSLY PURULENT LIKELY REPRESENTS INTERSTITIAL FLUID FROM EDEMA AFEBRILE WITH NORMAL WBC OBSERVE OFF ANTIBIOTICS
--- NOTE | 2018-10-09 16:46 | PN ---
Progress Note (short form) - Note Progress Note: Renal follow up for ISMAEL Pt seen and examined at the bedside no complaints getting prbc transfusion making urine as per pt report no sob, cp, abd pain Vital Signs Temperature 97.9 F 10/09/18 13:52 Pulse Rate 85 10/09/18 13:52 Respiratory Rate 20 10/09/18 13:52 Blood Pressure 126/92 10/09/18 13:52 O2 Sat by Pulse Oximetry (%) 96 10/09/18 09:00 Intake & Output 10/06/18 10/07/18 10/08/18 10/09/18 23:59 23:59 23:59 23:59 Intake Total 1025 1500 450 400 Output Total 900 700 450 800 Balance 125 800 0 -400 Weight 86.183 kg 85.82 kg NAD awake and alert neck supple, no JVD dec BS at lung bases RRR ++ sacral and LE edema CBC, BMP 10/09/18 10:30 10/09/18 06:30 Current Medications Docusate Sodium (Colace -) 100 mg PO HS [facility] Last Admin: 10/08/18 22:16 Dose: Not Given Fentanyl (Duragesic 12mcg Patch -) 1 patch TD Q72H [facility] Stop: 10/10/18 16:14 Last Admin: 10/09/18 15:16 Dose: 1 patch IV Flush (Vu-Cath Flush) 10 ml IVPUSH PRN PRN PRN Reason: FLUSH Last Admin: 10/09/18 13:20 Dose: 10 ml Sodium Chloride (Normal Saline -) 1,000 mls @ 60 mls/hr IV [facility] Last Admin: 10/09/18 14:15 Dose: 60 mls/hr Miscellaneous (Duragesic Patch Waste) 1 each TD PRN PRN PRN Reason: PAIN Last Admin: 10/09/18 15:22 Dose: 1 each Octreotide Acetate (Sandostatin -) 100 mcg SQ TID [facility] Last Admin: 10/09/18 13:19 Dose: 100 mcg Pantoprazole Sodium (Protonix -) 40 mg PO DAILY [facility] Last Admin: 10/09/18 09:39 Dose: 40 mg Sodium Bicarbonate (Sodium Bicarbonate -) 650 mg PO BID [facility] Last Admin: 10/09/18 11:13 Dose: 650 mg 48 year old AA gentleman with hx of Metastatic Colon Ca s/p Colectomy, Hypertension, recent admission with ISMAEL requiring dialysis who presented from the [place] with swelling of his LE and found to have extrensive DVT with ISMAEL. 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
--- NOTE | 2018-10-09 19:23 | CONS ---
DATE OF CONSULTATION: 10/09/2018 HISTORY OF PRESENT ILLNESS: The patient is a 48-year-old male with a history of widely metastatic colorectal cancer, evaluated for serous drainage from the left lower extremity. On a recent admission, the patient developed spontaneous drainage of seropurulent fluid from the left calf area. At that time, he received a course of IV antibiotic therapy. Wound culture had grown Escherichia fergusonii. A previous CAT scan performed in August 2018 showed concentric subcutaneous edema and fluid. His hospital course has now been complicated by worsening renal function. An infectious disease consultation was requested for continued serous drainage from the left lower extremity. Nursing staff reports large amounts of clear, serous, non-malodorous fluid which intermittently drains from the proximal left calf. There is no bebe pus. The leg itself is edematous. There is no erythema or warmth. He has been afebrile with a normal white blood cell count. At the present time, he is awake and alert. He is not acutely toxic appearing. He appears chronically ill. PAST MEDICAL HISTORY: Positive for metastatic rectal cancer with liver and lung metastases, recurrent pelvic mass, hypertension. PAST SURGICAL HISTORY: Status post colectomy. ALLERGIES: No known drug allergies. LABORATORY DATA: White count 8.6. Hematocrit 22.5, platelet count 236, BUN 40, creatinine 2.7. Urinalysis showed 71 white cells. PHYSICAL EXAMINATION: General: The patient looks pale and chronically ill. Vital Signs: Temperature 97.9, pulse 85 and regular, blood pressure 126/92, respiratory rate 20 per minute. HEENT:: Sclerae anicteric. The port site with no erythema or tenderness. Heart: Heart sounds S1, S2. Lungs: Grossly clear. Abdomen: Soft and nontender. Colostomy is in place. Extremities: Positive for bilateral lower extremity edema. There is an ulceration present at the proximal aspect of the left calf from which serous fluid is noted to be weeping. It is not grossly purulent. The leg itself is not erythematous or warm. IMPRESSION/PLAN: Serous drainage from left lower extremity, not grossly purulent; likely represents interstitial fluid from edema. The patient is afebrile with a normal white blood cell count. Would observe off antibiotic therapy. Continue local wound care. Thank you for the kind referral. JOSE F SEVERINO M.D. [id number]
[2018-10-09] MEDS: DOCUSATE SODIUM 100 MG CAPSULE (FP) PO SCH (22:36)
--- NOTE | 2018-10-09 23:33 | PN ---
Progress Note (short form) - Note Progress Note: Patient seen and examined FAILURE TO THRIVE WEAK AFVSS Cor: RSR, No murmurs, No gallops Lungs: Clear to P&A Abd: Soft, Normal bowel sounds, No organomegaly lABS/MEDS REVIEWED A/P 48 y/o patient with metastatic rectal cancer, s/p FOLFOX/avastin Now on irinotecan s/p RT to sacral mass ISMAEL -- ? hypotension gentle hydration DVT -- supratherapeutic inr dose vitamin K F/U CULTURES discussed with patients mother overall status. discussed with patient
[2018-10-10] MEDS: OCTREOTIDE ACETATE 100 MCG/1 ML SQ SCH (06:27)
[2018-10-10 08:08] LABS: MAGNESIUM 1.9 mg/dL (1.8-2.4); PHOSPHOROUS 3.3 mg/dL (2.5-4.9); URIC ACID 12.5 mg/dL (2.6-7.2)
[2018-10-10 08:24] LABS: INR 1.6 (0.83-1.09)
[2018-10-10 08:27] LABS: ACTIVATED PTT 49.8 SECONDS (25.2-36.5)
[2018-10-10] MEDS: PANTOPRAZOLE 40 MG TABLET (FP) PO SCH (09:52)
[2018-10-10] MEDS: SODIUM BICARBONATE 650 MG TABLET PO SCH ×2 (09:52→22:00)
[2018-10-10 10:55] LABS: ALBUMIN 1.8 g/dl (3.4-5.0); ALK PHOS 1003 U/L (45-117); ANION GAP 13 MMOL/L (8-16); BILIRUBIN,TOTAL 1.7 mg/dL (0.2-1); BLOOD UREA NITROGEN 43 mg/dL (7-18); CALCIUM 7.5 mg/dL (8.5-10.1); CHLORIDE 114 mmol/L (98-107); CO2 17 mmol/L (21-32); CREATININE 2.7 mg/dL (0.55-1.3); GLUCOSE,RANDOM 64 mg/dL (74-106); POTASSIUM 3.7 mmol/L (3.5-5.1); SGOT/AST 79 U/L (15-37); SGPT/ALT 17 U/L (13-61); SODIUM 143 mmol/L (136-145); TOT PROT 4.8 g/dl (6.4-8.2)
[2018-10-10] MEDS: oxyCODONE HCL 5 MG TABLET PO PRN (11:53)
--- NOTE | 2018-10-10 12:03 | PN ---
Progress Note, Physician History of Present Illness: pt seen/ examined awake/ weak no distress alert/ awake denies pain inr came down no bleeding - Current Medication List Current Medications: Active Medications Docusate Sodium (Colace -) 100 mg PO HS [facility] Last Admin: 10/09/18 22:36 Dose: Not Given Fentanyl (Duragesic 12mcg Patch -) 1 patch TD Q72H [facility] Stop: 10/10/18 16:14 Last Admin: 10/09/18 15:16 Dose: 1 patch IV Flush (Vu-Cath Flush) 10 ml IVPUSH PRN PRN PRN Reason: FLUSH Last Admin: 10/09/18 13:20 Dose: 10 ml Sodium Chloride (Normal Saline -) 1,000 mls @ 60 mls/hr IV [facility] Last Admin: 10/09/18 14:15 Dose: 60 mls/hr Miscellaneous (Duragesic Patch Waste) 1 each TD PRN PRN PRN Reason: PAIN Last Admin: 10/09/18 15:22 Dose: 1 each Oxycodone HCl (Roxicodone -) 5 mg PO Q6H PRN PRN Reason: PAIN LEVEL 6-10 Last Admin: 10/10/18 11:53 Dose: 5 mg Pantoprazole Sodium (Protonix -) 40 mg PO DAILY [facility] Last Admin: 10/10/18 09:52 Dose: 40 mg Sodium Bicarbonate (Sodium Bicarbonate -) 650 mg PO BID [facility] Last Admin: 10/10/18 09:52 Dose: 650 mg - Objective Vital Signs: Vital Signs Temperature 98.6 F 10/10/18 10:00 Pulse Rate 89 10/10/18 10:00 Respiratory Rate 18 10/10/18 10:00 Blood Pressure 131/99 10/10/18 10:00 O2 Sat by Pulse Oximetry (%) 98 10/10/18 09:00 Constitutional: Yes: No Distress Eyes: Yes: Conjunctiva Clear Neck: Yes: Supple Cardiovascular: Yes: Regular Rate and Rhythm Respiratory: Yes: Diminished Gastrointestinal: Yes: Soft, Other (colostomy bag +) Genitourinary: Yes: Scrotal Edema Edema: Yes Edema: LLE: 1+, RLE: 1+ Wound/Incision: Yes: Dressing Dry and Intact Neurological: Yes: Alert Psychiatric: Yes: Alert Labs: CBC, BMP 10/09/18 10:30 10/10/18 07:00 INR, PTT INR 1.60 (0.83-1.09) H 10/10/18 06:10 Problem List - Problems (1) ISMAEL (acute kidney injury) Code(s): N17.9 - ACUTE KIDNEY FAILURE, UNSPECIFIED (2) DVT (deep venous thrombosis) Code(s): I82.409 - ACUTE EMBOLISM AND THOMBOS UNSP DEEP VN UNSP LOWER EXTREMITY Qualifiers: DVT location: lower extremity Affected thrombotic vein of extremity: unspecified vein of extremity Chronicity: unspecified Laterality: unspecified laterality Qualified Code(s): I82.409 - Acute embolism and thrombosis of unspecified deep veins of unspecified lower extremity (3) Hypoalbuminemia due to protein-calorie malnutrition Code(s): E46 - UNSPECIFIED PROTEIN-CALORIE MALNUTRITION (4) Metastatic colon cancer to liver Code(s): C18.9 - MALIGNANT NEOPLASM OF COLON, UNSPECIFIED; C78.7 - SECONDARY MALIG NEOPLASM OF LIVER AND INTRAHEPATIC BILE DUCT Assessment/Plan overall condition remains gaurded but stable meds reviewed oob - chair restart on coumadin f/u labs further plans per oncology will follow. discussed with continuous pillowcase cutter and nursing staff also.
[2018-10-10] MEDS: SODIUM CHLORIDE 1,000 ML IV SCH (15:31)
[2018-10-10] MEDS ORDERED: WARFARIN NA 2 MG TABLET (UD) PO ONE (18:00)
[2018-10-10] MEDS: PORTA CATH FLUSH 10 ML IVPUSH PRN (18:04)
--- NOTE | 2018-10-10 18:38 | PN ---
Progress Note (short form) - Note Progress Note: Renal follow up for ISMAEL Pt seen and examined at the bedside no complaints Vital Signs Temperature 97.4 F L 10/10/18 15:20 Pulse Rate 100 H 10/10/18 15:20 Respiratory Rate 20 10/10/18 15:20 Blood Pressure 118/87 10/10/18 15:20 O2 Sat by Pulse Oximetry (%) 98 10/10/18 09:00 NAD awake and alert neck supple, no JVD dec BS at lung bases RRR ++ sacral and LE edema CBC, BMP 10/09/18 10:30 10/10/18 07:00 Current Medications Docusate Sodium (Colace -) 100 mg PO HS [facility] Last Admin: 10/09/18 22:36 Dose: Not Given Fentanyl (Duragesic 12mcg Patch -) 1 patch TD Q72H [facility] Stop: 10/10/18 16:14 Last Admin: 10/09/18 15:16 Dose: 1 patch IV Flush (Vu-Cath Flush) 10 ml IVPUSH PRN PRN PRN Reason: FLUSH Last Admin: 10/10/18 18:04 Dose: 10 ml Sodium Chloride (Normal Saline -) 1,000 mls @ 60 mls/hr IV [facility] Last Admin: 10/10/18 15:31 Dose: 60 mls/hr Miscellaneous (Duragesic Patch Waste) 1 each TD PRN PRN PRN Reason: PAIN Last Admin: 10/09/18 15:22 Dose: 1 each Oxycodone HCl (Roxicodone -) 5 mg PO Q6H PRN PRN Reason: PAIN LEVEL 6-10 Last Admin: 10/10/18 11:53 Dose: 5 mg Pantoprazole Sodium (Protonix -) 40 mg PO DAILY [facility] Last Admin: 10/10/18 09:52 Dose: 40 mg Sodium Bicarbonate (Sodium Bicarbonate -) 650 mg PO BID [facility] Last Admin: 10/10/18 09:52 Dose: 650 mg 48 year old AA gentleman with hx of Metastatic Colon Ca s/p Colectomy, Hypertension, recent admission with ISMAEL requiring dialysis who presented from the [place] with swelling of his LE and found to have extrensive DVT with ISMAEL. 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
[2018-10-10] MEDS: DOCUSATE SODIUM 100 MG CAPSULE (FP) PO SCH (22:00)
--- NOTE | 2018-10-10 23:03 | PN ---
Progress Note (short form) - Note Progress Note: Patient seen and examined No specific complaints FAILURE TO THRIVE WEAK Last Vital Signs Temp Pulse Resp BP Pulse Ox 98.1 F 82 18 124/76 98 10/10/18 18:00 10/10/18 18:00 10/10/18 18:00 10/10/18 18:00 10/10/18 09:00 Cor: RSR, No murmurs, No gallops Lungs: Clear to P&A Abd: Soft, Normal bowel sounds, No organomegaly Ext:No significant edema lABS/MEDS REVIEWED A/P 48 y/o patient with metastatic rectal cancer, s/p FOLFOX/avastin Now on irinotecan s/p RT to sacral mass ISMAEL -- ? hypotension STABLE DVT -- on coumadin PER inr F/U CULTURES discussed with patients mother overall status. discussed with patient
[2018-10-11 07:39] LABS: INR 1.1 (0.83-1.09)
[2018-10-11 07:54] LABS: ALBUMIN 1.5 g/dl (3.4-5.0); ALK PHOS 927 U/L (45-117); ANION GAP 11 MMOL/L (8-16); BILIRUBIN,TOTAL 1.5 mg/dL (0.2-1); BLOOD UREA NITROGEN 41 mg/dL (7-18); CALCIUM 7.4 mg/dL (8.5-10.1); CHLORIDE 115 mmol/L (98-107); CO2 17 mmol/L (21-32); CREATININE 2.8 mg/dL (0.55-1.3); GLUCOSE,RANDOM 106 mg/dL (74-106); POTASSIUM 3.4 mmol/L (3.5-5.1); SGOT/AST 80 U/L (15-37); SGPT/ALT 20 U/L (13-61); SODIUM 143 mmol/L (136-145); TOT PROT 4.6 g/dl (6.4-8.2)
[2018-10-11 08:00] LABS: BASO % 0.1 % (0-2.0); HEMATOCRIT 32.4 % (35.4-49); HEMOGLOBIN 10.9 GM/dL (11.7-16.9); LYMPH % 4.8 % (8-40); MCH 28.9 pg (25.7-33.7); MCHC 33.6 g/dl (32.0-35.9); MEAN CELL VOLUME 86.1 fl (80-96); MEAN PLT VOLUME 8.6 fl (7.5-11.1); MONO % 5.3 % (3.8-10.2); NEUT % 89.8 % (42.8-82.8); PLATELET COUNT 240 K/MM3 (134-434); RBC 3.77 M/mm3 (4.00-5.60); RDW 16.9 % (11.9-15.9); WHITE BLOOD COUNT 11.8 K/mm3 (4.0-10.0)
--- NOTE | 2018-10-11 09:38 | PN ---
Progress Note (short form) - Note Progress Note: Renal follow up for ISMAEL Pt seen and examined at the bedside reports watery diarrhea since last night no abd pain no CP, SOB, N/V no fever or chills Vital Signs Temperature 97.5 F L 10/11/18 05:56 Pulse Rate 106 H 10/11/18 05:56 Respiratory Rate 20 10/11/18 05:56 Blood Pressure 131/81 10/11/18 05:56 O2 Sat by Pulse Oximetry (%) 95 10/10/18 21:00 Intake & Output 10/08/18 10/09/18 10/10/18 10/11/18 23:59 23:59 23:59 23:59 Intake Total 450 1140 1650 480 Output Total 450 800 Balance 0 340 1650 480 Weight 85.82 kg NAD awake and alert neck supple, no JVD dec BS at lung bases RRR ++ sacral and LE edema CBC, BMP 10/11/18 06:00 10/11/18 06:00 Current Medications Docusate Sodium (Colace -) 100 mg PO HS [facility] Last Admin: 10/10/18 22:00 Dose: Not Given Fentanyl (Duragesic 12mcg Patch -) 1 patch TD Q72H [facility] Stop: 10/10/18 16:14 Last Admin: 10/09/18 15:16 Dose: 1 patch IV Flush (Vu-Cath Flush) 10 ml IVPUSH PRN PRN PRN Reason: FLUSH Last Admin: 10/10/18 18:04 Dose: 10 ml Sodium Chloride (Normal Saline -) 1,000 mls @ 84 mls/hr IV ASDIR [facility] Stop: 10/12/18 09:31 Miscellaneous (Duragesic Patch Waste) 1 each TD PRN PRN PRN Reason: PAIN Last Admin: 10/09/18 15:22 Dose: 1 each Oxycodone HCl (Roxicodone -) 5 mg PO Q6H PRN PRN Reason: PAIN LEVEL 6-10 Last Admin: 10/10/18 11:53 Dose: 5 mg Pantoprazole Sodium (Protonix -) 40 mg PO DAILY [facility] Last Admin: 10/10/18 09:52 Dose: 40 mg Sodium Bicarbonate (Sodium Bicarbonate -) 650 mg PO BID [facility] Last Admin: 10/10/18 22:00 Dose: 650 mg 48 year old AA gentleman with hx of Metastatic Colon Ca s/p Colectomy, Hypertension, recent admission with ISMAEL requiring dialysis who presented from the [place] with swelling of his LE and found to have extrensive DVT with ISMAEL. #ISMAEL with nephrotic range proteinuria #LE DVT #Anemia #Metastatic Colon Ca #Diarrhea BUN/Cr slowly rising given diarrhea will increase IVF to 84cc per hour and continue for 24 hours urine studies show significant proteinuria serologic work up was done last admission including ALVERTO, ANCA, Anti-GBM Ab, SPEP and all were negative will repeat ALVERTO, RPR Continue sodium bicarb BID Check stool for C-diff given diarrhea (pt has been hospitalized for some time) supportive care prognosis is guarded Thank you Sami Pitt
[2018-10-11 10:25] LABS: ANISOCYTOSIS 1+; MACROCYTOSIS 0; PLATELET ESTIMATE NORMAL
--- NOTE | 2018-10-11 12:11 | PN ---
Progress Note (short form) - Note Progress Note: awake/ comfortable no distress weak/ chronic ill appearance Vital Signs Temp 97.5 F L 10/11/18 05:56 Pulse 106 H 10/11/18 05:56 Resp 20 10/11/18 05:56 BP 131/81 10/11/18 05:56 Pulse Ox 95 10/10/18 21:00 Intake & Output 10/10/18 10/11/18 10/11/18 23:59 11:59 23:59 Intake Total 1020 480 Balance 1020 480 Intake: IV 900 480 portacath 900 480 Oral 120 Other: Voiding Method Urinal Urinal Active Medications Docusate Sodium (Colace -) 100 mg PO HS [facility] Last Admin: 10/10/18 22:00 Dose: Not Given Fentanyl (Duragesic 12mcg Patch -) 1 patch TD Q72H [facility] Stop: 10/10/18 16:14 Last Admin: 10/09/18 15:16 Dose: 1 patch IV Flush (Vu-Cath Flush) 10 ml IVPUSH PRN PRN PRN Reason: FLUSH Last Admin: 10/10/18 18:04 Dose: 10 ml Sodium Chloride (Normal Saline -) 1,000 mls @ 84 mls/hr IV ASDIR [facility] Stop: 10/12/18 09:31 Miscellaneous (Duragesic Patch Waste) 1 each TD PRN PRN PRN Reason: PAIN Last Admin: 10/09/18 15:22 Dose: 1 each Oxycodone HCl (Roxicodone -) 5 mg PO Q6H PRN PRN Reason: PAIN LEVEL 6-10 Last Admin: 10/10/18 11:53 Dose: 5 mg Pantoprazole Sodium (Protonix -) 40 mg PO DAILY [facility] Last Admin: 10/10/18 09:52 Dose: 40 mg Sodium Bicarbonate (Sodium Bicarbonate -) 650 mg PO BID [facility] Last Admin: 10/10/18 22:00 Dose: 650 mg Warfarin Sodium (Coumadin -) 4 mg PO DAILY@1800 [facility] CBC, BMP 10/11/18 06:00 10/11/18 06:00 Microbiology 10/09/18 12:49 Blood Culture - Preliminary Blood - Peripheral Venous NO GROWTH OBTAINED AFTER 24 HOURS, INCUBATION TO CONTINUE FOR 4 DAYS. 10/09/18 12:45 Blood Culture - Preliminary Blood - Peripheral Venous NO GROWTH OBTAINED AFTER 24 HOURS, INCUBATION TO CONTINUE FOR 4 DAYS. 10/09/18 13:00 Urine Culture - Final Urine - Urine Clean Catch Physical Constitutional: Yes: No Distress but weak/ chronic ill appearance Eyes: Yes: Conjunctiva Clear Neck: Yes: Supple Cardiovascular: Yes: Regular Rate and Rhythm Respiratory: Yes: Diminished Gastrointestinal: Yes: Soft, Other (colostomy bag +) Genitourinary: Yes: Scrotal Edema Edema: Yes Edema: LLE: 1+, RLE: 1+ Wound/Incision: Yes: Dressing Dry and Intact Neurological: Yes: Alert Psychiatric: Yes: Alert Assessment/Plan overall condition remains gaurded/ same meds reviewed oob - chair restarted on coumadin-- per inr f/u labs-- reviewed further plans per oncology will follow. discussed with nursing staff also. Problem List - Problems (1) ISMAEL (acute kidney injury) Code(s): N17.9 - ACUTE KIDNEY FAILURE, UNSPECIFIED (2) DVT (deep venous thrombosis) Code(s): I82.409 - ACUTE EMBOLISM AND THOMBOS UNSP DEEP VN UNSP LOWER EXTREMITY Qualifiers: DVT location: lower extremity Affected thrombotic vein of extremity: unspecified vein of extremity Chronicity: unspecified Laterality: unspecified laterality Qualified Code(s): I82.409 - Acute embolism and thrombosis of unspecified deep veins of unspecified lower extremity (3) Hypoalbuminemia due to protein-calorie malnutrition Code(s): E46 - UNSPECIFIED PROTEIN-CALORIE MALNUTRITION (4) Metastatic colon cancer to liver Code(s): C18.9 - MALIGNANT NEOPLASM OF COLON, UNSPECIFIED; C78.7 - SECONDARY MALIG NEOPLASM OF LIVER AND INTRAHEPATIC BILE DUCT
[2018-10-11] MEDS: PANTOPRAZOLE 40 MG TABLET (FP) PO SCH (13:25)
[2018-10-11] MEDS: SODIUM BICARBONATE 650 MG TABLET PO SCH ×2 (13:25→23:24)
[2018-10-11] MEDS: SODIUM CHLORIDE 1,000 ML IV SCH ×2 (13:25→23:24)
[2018-10-11] MEDS: WARFARIN NA 2 MG TABLET (UD) PO SCH (17:56)
--- NOTE | 2018-10-11 19:38 | PN ---
Labs Lab Results: Feels a little better. CBC, BMP 10/11/18 06:00 10/11/18 06:00
--- NOTE | 2018-10-11 22:41 | PN ---
Progress Note, Physician Chief Complaint: DVT History of Present Illness: Pt denies leg pain, abdominal pain. Continues to have diarrhea. - Current Medication List Current Medications: Active Medications Docusate Sodium (Colace -) 100 mg PO HS [facility] Last Admin: 10/10/18 22:00 Dose: Not Given Fentanyl (Duragesic 12mcg Patch -) 1 patch TD Q72H [facility] Stop: 10/10/18 16:14 Last Admin: 10/09/18 15:16 Dose: 1 patch IV Flush (Vu-Cath Flush) 10 ml IVPUSH PRN PRN PRN Reason: FLUSH Last Admin: 10/10/18 18:04 Dose: 10 ml Sodium Chloride (Normal Saline -) 1,000 mls @ 84 mls/hr IV ASDIR [facility] Stop: 10/12/18 09:31 Last Admin: 10/11/18 13:25 Dose: 84 mls/hr Miscellaneous (Duragesic Patch Waste) 1 each TD PRN PRN PRN Reason: PAIN Last Admin: 10/09/18 15:22 Dose: 1 each Oxycodone HCl (Roxicodone -) 5 mg PO Q6H PRN PRN Reason: PAIN LEVEL 6-10 Last Admin: 10/10/18 11:53 Dose: 5 mg Pantoprazole Sodium (Protonix -) 40 mg PO DAILY [facility] Last Admin: 10/11/18 13:25 Dose: 40 mg Sodium Bicarbonate (Sodium Bicarbonate -) 650 mg PO BID [facility] Last Admin: 10/11/18 13:25 Dose: 650 mg Warfarin Sodium (Coumadin -) 4 mg PO DAILY@1800 [facility] Last Admin: 10/11/18 17:56 Dose: 4 mg - Objective Vital Signs: Vital Signs Temperature 97.3 F L 10/11/18 18:09 Pulse Rate 100 H 10/11/18 18:09 Respiratory Rate 20 10/11/18 18:09 Blood Pressure 122/96 10/11/18 18:09 O2 Sat by Pulse Oximetry (%) 95 10/10/18 21:00 Constitutional: Yes: Well Nourished, No Distress, Calm Eyes: Yes: Conjunctiva Clear Cardiovascular: Yes: Regular Rate and Rhythm Respiratory: Yes: Regular, CTA Bilaterally Gastrointestinal: Yes: Soft Edema: Yes Edema: LUE: 2+ Labs: CBC, BMP 10/11/18 06:00 10/11/18 06:00 INR, PTT INR 1.10 (0.83-1.09) H 10/11/18 06:00 Assessment/Plan 48M metastatic rectal cancer with liver, lung mets, sacral mass, s/p FOLOX/ avastin, with POD, now on irinotecan. admitted with extensive LLE DVT and ISMAEL. Was bridging to warfarin, was supratherapeutic, it was held, now subtherapeutic. Warfarin restarted tonight. Can also consider apixaban Agree with checking C. diff, would stop colace
[2018-10-11] MEDS: oxyCODONE HCL 5 MG TABLET PO PRN (23:23)
[2018-10-11] MEDS: DOCUSATE SODIUM 100 MG CAPSULE (FP) PO SCH (23:24)
[2018-10-12] MEDS: PORTA CATH FLUSH 10 ML IVPUSH PRN (06:50)
[2018-10-12 08:12] LABS: BASO % 0.1 % (0-2.0); EOS % 0.2 % (0-4.5); HEMATOCRIT 29.3 % (35.4-49); HEMOGLOBIN 9.8 GM/dL (11.7-16.9); LYMPH % 6.7 % (8-40); MCH 28.9 pg (25.7-33.7); MCHC 33.5 g/dl (32.0-35.9); MEAN CELL VOLUME 86.3 fl (80-96); MEAN PLT VOLUME 8.6 fl (7.5-11.1); MONO % 7.1 % (3.8-10.2); NEUT % 85.9 % (42.8-82.8); PLATELET COUNT 222 K/MM3 (134-434); RBC 3.39 M/mm3 (4.00-5.60); RDW 17.1 % (11.9-15.9); WHITE BLOOD COUNT 11.9 K/mm3 (4.0-10.0)
[2018-10-12 08:13] LABS: INR 1.12 (0.83-1.09); PROTHROMBIN TIME (PATIENT) 13.2 SEC (9.7-13.0)
[2018-10-12 08:28] LABS: ANION GAP 11 MMOL/L (8-16); BLOOD UREA NITROGEN 43 mg/dL (7-18); CALCIUM 7.3 mg/dL (8.5-10.1); CHLORIDE 115 mmol/L (98-107); CO2 18 mmol/L (21-32); CREATININE 2.6 mg/dL (0.55-1.3); GLUCOSE,RANDOM 88 mg/dL (74-106); MAGNESIUM 1.9 mg/dL (1.8-2.4); PHOSPHOROUS 3.2 mg/dL (2.5-4.9); POTASSIUM 3.2 mmol/L (3.5-5.1); SODIUM 144 mmol/L (136-145)
[2018-10-12] MEDS: SODIUM BICARBONATE 650 MG TABLET PO SCH ×2 (10:00→23:13)
[2018-10-12 10:15] LABS: ANISOCYTOSIS 1+; MACROCYTOSIS 1+; PLATELET ESTIMATE NORMAL
--- NOTE | 2018-10-12 10:27 | PN ---
Progress Note (short form) - Note Progress Note: Renal follow up for ISMAEL Pt seen and examined at the bedside diarrhea improving no sob, cp, abd pain making urine on IVF Vital Signs Temperature 98.2 F 10/12/18 06:19 Pulse Rate 100 H 10/12/18 06:19 Respiratory Rate 20 10/12/18 06:19 Blood Pressure 121/90 10/12/18 06:19 O2 Sat by Pulse Oximetry (%) 99 10/11/18 21:00 Intake & Output 10/09/18 10/10/18 10/11/18 10/12/18 23:59 23:59 23:59 23:59 Intake Total 1140 1650 2170 840 Output Total 800 200 Balance 340 1650 1970 840 NAD awake and alert neck supple, no JVD dec BS at lung bases RRR ++ sacral and LE edema CBC, BMP 10/12/18 06:45 10/12/18 06:45 Current Medications Docusate Sodium (Colace -) 100 mg PO HS [facility] Last Admin: 10/11/18 23:24 Dose: Not Given Fentanyl (Duragesic 12mcg Patch -) 1 patch TD Q72H [facility] Stop: 10/10/18 16:14 Last Admin: 10/09/18 15:16 Dose: 1 patch IV Flush (Vu-Cath Flush) 10 ml IVPUSH PRN PRN PRN Reason: FLUSH Last Admin: 10/12/18 06:50 Dose: 10 ml Miscellaneous (Duragesic Patch Waste) 1 each TD PRN PRN PRN Reason: PAIN Last Admin: 10/09/18 15:22 Dose: 1 each Oxycodone HCl (Roxicodone -) 5 mg PO Q6H PRN PRN Reason: PAIN LEVEL 6-10 Last Admin: 10/11/18 23:23 Dose: 5 mg Pantoprazole Sodium (Protonix -) 40 mg PO DAILY [facility] Last Admin: 10/11/18 13:25 Dose: 40 mg Sodium Bicarbonate (Sodium Bicarbonate -) 650 mg PO BID [facility] Last Admin: 10/11/18 23:24 Dose: 650 mg Warfarin Sodium (Coumadin -) 4 mg PO DAILY@1800 [facility] Last Admin: 10/11/18 17:56 Dose: 4 mg 48 year old AA gentleman with hx of Metastatic Colon Ca s/p Colectomy, Hypertension, recent admission with ISMAEL requiring dialysis who presented from the [place] with swelling of his LE and found to have extrensive DVT with ISMAEL. #ISMAEL with nephrotic range proteinuria #LE DVT #Anemia #Metastatic Colon Ca #Diarrhea Renal function stable, slight improvement in the lat 24 hours diarrhea improving can d/c IVF this evening urine studies show significant proteinuria serologic work up was done last admission including ALVERTO, ANCA, Anti-GBM Ab, SPEP and all were negative repeat ALVERTO, RPR pending Continue sodium bicarb BID Check stool for C-diff given diarrhea (pt has been hospitalized for some time) - collection pending supportive care prognosis is guarded Thank you Sami Pitt
[2018-10-12] MEDS: PANTOPRAZOLE 40 MG TABLET (FP) PO SCH (12:32)
[2018-10-12] MEDS ORDERED: POTASSIUM CHLORIDE ORAL LIQUID 20 MEQ/15 ML PO ONE (14:06)
--- NOTE | 2018-10-12 14:11 | PN ---
Progress Note (short form) - Note Progress Note: awake/ comfortable no new issues all f/u noted comfortable Vital Signs Temp 98.2 F 10/12/18 06:19 Pulse 100 H 10/12/18 06:19 Resp 20 10/12/18 06:19 BP 121/90 10/12/18 06:19 Pulse Ox 99 10/11/18 21:00 Intake & Output 10/11/18 10/12/18 10/12/18 23:59 11:59 23:59 Intake Total 300 840 Output Total 200 Balance 100 840 Intake: IV 840 Normal Saline - 1,000 ml 840 @ 84 mls/hr IV ASDIR [facility] Rx#:[id number] Oral 300 Output: Urine 200 Void 200 Other: Voiding Method Urinal Urinal Urinal Bowel Movement Yes No Active Medications Docusate Sodium (Colace -) 100 mg PO HS [facility] Last Admin: 10/11/18 23:24 Dose: Not Given Fentanyl (Duragesic 12mcg Patch -) 1 patch TD Q72H [facility] Stop: 10/10/18 16:14 Last Admin: 10/09/18 15:16 Dose: 1 patch IV Flush (Vu-Cath Flush) 10 ml IVPUSH PRN PRN PRN Reason: FLUSH Last Admin: 10/12/18 06:50 Dose: 10 ml Miscellaneous (Duragesic Patch Waste) 1 each TD PRN PRN PRN Reason: PAIN Last Admin: 10/09/18 15:22 Dose: 1 each Oxycodone HCl (Roxicodone -) 5 mg PO Q6H PRN PRN Reason: PAIN LEVEL 6-10 Last Admin: 10/11/18 23:23 Dose: 5 mg Pantoprazole Sodium (Protonix -) 40 mg PO DAILY [facility] Last Admin: 10/12/18 12:32 Dose: 40 mg Potassium Chloride (Potassium Chloride Oral Liquid) 20 meq PO ONCE ONE Stop: 10/12/18 14:07 Sodium Bicarbonate (Sodium Bicarbonate -) 650 mg PO BID [facility] Last Admin: 10/11/18 23:24 Dose: 650 mg Warfarin Sodium (Coumadin -) 4 mg PO DAILY@1800 [facility] Last Admin: 10/11/18 17:56 Dose: 4 mg Warfarin Sodium (Coumadin -) 2 mg PO ONCE@1800 ONE Stop: 01/13/19 18:01 CBC, BMP 10/12/18 06:45 10/12/18 06:45 Microbiology 10/09/18 12:49 Blood Culture - Preliminary Blood - Peripheral Venous NO GROWTH OBTAINED AFTER 72 HOURS, INCUBATION TO CONTINUE FOR 2 DAYS. 10/09/18 12:45 Blood Culture - Preliminary Blood - Peripheral Venous NO GROWTH OBTAINED AFTER 72 HOURS, INCUBATION TO CONTINUE FOR 2 DAYS. Physical Constitutional: Yes: No Distress but weak/ chronic ill appearance Eyes: Yes: Conjunctiva Clear Neck: Yes: Supple Cardiovascular: Yes: Regular Rate and Rhythm Respiratory: Yes: Diminished Gastrointestinal: Yes: Soft, Other (colostomy bag +) Genitourinary: Yes: Scrotal Edema Edema: Yes Edema: LLE: 1+, RLE: 1+ Wound/Incision: Yes: Dressing Dry and Intact Neurological: Yes: Alert Psychiatric: Yes: Alert Assessment/Plan overall condition remains gaurded/ same meds reviewed oob - chair restarted on coumadin-- per inr-- extra dose today f/u labs-- reviewed supplement k agree with d/c fluids monitor lytes further plans per oncology-- to follow will follow. discussed with nursing staff also. Problem List - Problems (1) ISMAEL (acute kidney injury) Code(s): N17.9 - ACUTE KIDNEY FAILURE, UNSPECIFIED (2) DVT (deep venous thrombosis) Code(s): I82.409 - ACUTE EMBOLISM AND THOMBOS UNSP DEEP VN UNSP LOWER EXTREMITY Qualifiers: DVT location: lower extremity Affected thrombotic vein of extremity: unspecified vein of extremity Chronicity: unspecified Laterality: unspecified laterality Qualified Code(s): I82.409 - Acute embolism and thrombosis of unspecified deep veins of unspecified lower extremity (3) Hypoalbuminemia due to protein-calorie malnutrition Code(s): E46 - UNSPECIFIED PROTEIN-CALORIE MALNUTRITION (4) Metastatic colon cancer to liver Code(s): C18.9 - MALIGNANT NEOPLASM OF COLON, UNSPECIFIED; C78.7 - SECONDARY MALIG NEOPLASM OF LIVER AND INTRAHEPATIC BILE DUCT
[2018-10-12] MEDS: WARFARIN NA 2 MG TABLET (UD) PO SCH ×2 (16:32→18:42)
[2018-10-12] MEDS: WARFARIN NA 2 MG TABLET (UD) PO ONE ×2 (16:33→18:42)
--- NOTE | 2018-10-12 19:18 | PN ---
Progress Note, Physician Chief Complaint: DVT History of Present Illness: Less diarrhea today - Current Medication List Current Medications: Active Medications Docusate Sodium (Colace -) 100 mg PO HS [facility] Last Admin: 10/11/18 23:24 Dose: Not Given Fentanyl (Duragesic 12mcg Patch -) 1 patch TD Q72H [facility] Stop: 10/10/18 16:14 Last Admin: 10/09/18 15:16 Dose: 1 patch IV Flush (Vu-Cath Flush) 10 ml IVPUSH PRN PRN PRN Reason: FLUSH Last Admin: 10/12/18 06:50 Dose: 10 ml Miscellaneous (Duragesic Patch Waste) 1 each TD PRN PRN PRN Reason: PAIN Last Admin: 10/09/18 15:22 Dose: 1 each Oxycodone HCl (Roxicodone -) 5 mg PO Q6H PRN PRN Reason: PAIN LEVEL 6-10 Last Admin: 10/11/18 23:23 Dose: 5 mg Pantoprazole Sodium (Protonix -) 40 mg PO DAILY [facility] Last Admin: 10/12/18 12:32 Dose: 40 mg Sodium Bicarbonate (Sodium Bicarbonate -) 650 mg PO BID [facility] Last Admin: 10/12/18 10:00 Dose: 650 mg Warfarin Sodium (Coumadin -) 4 mg PO DAILY@1800 [facility] Last Admin: 10/12/18 18:42 Dose: Not Given - Objective Vital Signs: Vital Signs Temperature 97.6 F 10/12/18 18:02 Pulse Rate 107 H 10/12/18 18:02 Respiratory Rate 20 10/12/18 18:02 Blood Pressure 127/92 10/12/18 18:02 O2 Sat by Pulse Oximetry (%) 99 10/11/18 21:00 Constitutional: Yes: No Distress, Calm Respiratory: Yes: Regular Edema: Yes Edema: LLE: 1+, RLE: 1+ Labs: CBC, BMP 10/12/18 06:45 10/12/18 06:45 INR, PTT INR 1.12 (0.83-1.09) H 10/12/18 06:45 Assessment/Plan 48M metastatic rectal cancer with liver, lung mets, sacral mass, s/p FOLOX/ avastin, with POD, now on irinotecan. admitted with extensive LLE DVT and ISMAEL. Was bridging to warfarin, was supratherapeutic, it was held, now subtherapeutic. Warfarin restarted, monitor INR. Consider bridging. Can also consider apixaban
[2018-10-12] MEDS: DOCUSATE SODIUM 100 MG CAPSULE (FP) PO SCH (23:13)
[2018-10-13] MEDS: PORTA CATH FLUSH 10 ML IVPUSH PRN (06:14)
[2018-10-13 07:04] LABS: INR 1.33 (0.83-1.09); PROTHROMBIN TIME (PATIENT) 15.7 SEC (9.7-13.0)
[2018-10-13 07:41] LABS: ANION GAP 12 MMOL/L (8-16); BLOOD UREA NITROGEN 42 mg/dL (7-18); CALCIUM 7.3 mg/dL (8.5-10.1); CHLORIDE 114 mmol/L (98-107); CO2 17 mmol/L (21-32); CREATININE 2.6 mg/dL (0.55-1.3); GLUCOSE,RANDOM 81 mg/dL (74-106); MAGNESIUM 1.9 mg/dL (1.8-2.4); PHOSPHOROUS 2.8 mg/dL (2.5-4.9); POTASSIUM 3.1 mmol/L (3.5-5.1); SODIUM 143 mmol/L (136-145)
[2018-10-13 07:50] LABS: HEMATOCRIT 30.4 % (35.4-49); HEMOGLOBIN 10.1 GM/dL (11.7-16.9); LYMPH % 6.8 % (8-40); MCH 28.8 pg (25.7-33.7); MCHC 33.2 g/dl (32.0-35.9); MEAN CELL VOLUME 86.6 fl (80-96); MEAN PLT VOLUME 9.1 fl (7.5-11.1); MONO % 5.7 % (3.8-10.2); NEUT % 87.5 % (42.8-82.8); PLATELET COUNT 224 K/MM3 (134-434); RBC 3.51 M/mm3 (4.00-5.60); RDW 17.3 % (11.9-15.9); WHITE BLOOD COUNT 15.4 K/mm3 (4.0-10.0)
[2018-10-13 09:20] LABS: ANISOCYTOSIS 2+; MACROCYTOSIS 1+; OVALOCYTE 1+; PLATELET ESTIMATE NORMAL
[2018-10-13] MEDS: SODIUM BICARBONATE 650 MG TABLET PO SCH ×2 (09:50→21:31)
[2018-10-13] MEDS: PANTOPRAZOLE 40 MG TABLET (FP) PO SCH (09:50)
--- NOTE | 2018-10-13 10:17 | PN ---
Progress Note, Physician Chief Complaint: left leg wound History of Present Illness: 48 yo male PMH HTN, Metastatic Colon Cancer with lung mets s/p colectomy and colostomy who is sent in by his oncologist for chemotherapy. has been stable since initial assessment. nurses have been caring for his chronic wound. - Current Medication List Current Medications: Active Medications Docusate Sodium (Colace -) 100 mg PO HS [facility] Last Admin: 10/12/18 23:13 Dose: Not Given Fentanyl (Duragesic 12mcg Patch -) 1 patch TD Q72H [facility] Stop: 10/10/18 16:14 Last Admin: 10/09/18 15:16 Dose: 1 patch IV Flush (Vu-Cath Flush) 10 ml IVPUSH PRN PRN PRN Reason: FLUSH Last Admin: 10/13/18 06:14 Dose: 10 ml Miscellaneous (Duragesic Patch Waste) 1 each TD PRN PRN PRN Reason: PAIN Last Admin: 10/09/18 15:22 Dose: 1 each Pantoprazole Sodium (Protonix -) 40 mg PO DAILY [facility] Last Admin: 10/13/18 09:50 Dose: 40 mg Sodium Bicarbonate (Sodium Bicarbonate -) 650 mg PO BID [facility] Last Admin: 10/13/18 09:50 Dose: 650 mg Warfarin Sodium (Coumadin -) 4 mg PO DAILY@1800 [facility] Last Admin: 10/12/18 18:42 Dose: Not Given - Objective Vital Signs: Vital Signs Temperature 97.6 F 10/13/18 05:41 Pulse Rate 102 H 10/13/18 05:41 Respiratory Rate 18 10/13/18 05:41 Blood Pressure 121/91 10/13/18 05:41 O2 Sat by Pulse Oximetry (%) 99 10/11/18 21:00 Constitutional: Yes: Well Nourished, No Distress, Calm Eyes: Yes: Conjunctiva Clear, EOM Intact HENT: Yes: Atraumatic, Normocephalic Neck: Yes: Supple, Trachea Midline Cardiovascular: Yes: Regular Rate and Rhythm, S1, S2 Respiratory: Yes: Regular, CTA Bilaterally Gastrointestinal: Yes: Normal Bowel Sounds, Soft. No: Tenderness ...Rectal Exam: Yes: Deferred Genitourinary: No: CVA Tenderness - Left, CVA Tenderness - Right Musculoskeletal: Yes: Back Pain, Joint Stiffness, Joint Swelling, Muscle Weakness Extremities: Yes: Calf Tenderness. No: Cool, Cyanosis Edema: Yes Edema: LUE: Trace, RUE: Trace, LLE: 4+, RLE: 2+ Peripheral Pulses WNL: Yes Peripheral Pulses: Left Radial: 2+, Right Radial: 2+, Left Doralis Pedis: 2+, Right Dorsalis Pedis: 2+, Left Femoral: 2+, Right Femoral: 2+ Integumentary: Yes: Incision. No: Erythema, Jaundice, Rash Wound/Incision: Yes: Clean/Dry, Open to air, Dressing Dry and Intact, Draining ( edema), Unapproximated Neurological: Yes: Alert, Oriented Psychiatric: Yes: Alert, Oriented Labs: CBC, BMP 10/13/18 06:00 10/13/18 06:00 INR, PTT INR 1.33 (0.83-1.09) H 10/13/18 06:00 Problem List - Problems (1) Edema of left lower leg due to peripheral venous insufficiency Assessment/Plan: 48yo male with MMP presented with a LLE DVT, 3 to 4+ pitting edema and a chronic weeping calf wound after and I&D. no acute intervention needed. treat dvt/ medical management absorbant dry dressing by nurse prn LLE elevation above heart level pt evaluation Code(s): I87.2 - VENOUS INSUFFICIENCY (CHRONIC) (PERIPHERAL); R60.0 - LOCALIZED EDEMA (2) Calf abscess Code(s): L02.419 - CUTANEOUS ABSCESS OF LIMB, UNSPECIFIED (3) ISMAEL (acute kidney injury) Code(s): N17.9 - ACUTE KIDNEY FAILURE, UNSPECIFIED (4) DVT (deep venous thrombosis) Code(s): I82.409 - ACUTE EMBOLISM AND THOMBOS UNSP DEEP VN UNSP LOWER EXTREMITY Qualifiers: DVT location: lower extremity Affected thrombotic vein of extremity: unspecified vein of extremity Chronicity: unspecified Laterality: unspecified laterality Qualified Code(s): I82.409 - Acute embolism and thrombosis of unspecified deep veins of unspecified lower extremity (5) Metastatic colon cancer to liver Code(s): C18.9 - MALIGNANT NEOPLASM OF COLON, UNSPECIFIED; C78.7 - SECONDARY MALIG NEOPLASM OF LIVER AND INTRAHEPATIC BILE DUCT (6) Adenocarcinoma Code(s): C80.1 - MALIGNANT (PRIMARY) NEOPLASM, UNSPECIFIED (7) Anemia due to blood loss, chronic Code(s): D50.0 - IRON DEFICIENCY ANEMIA SECONDARY TO BLOOD LOSS (CHRONIC) (8) Hypertension Code(s): I10 - ESSENTIAL (PRIMARY) HYPERTENSION Qualifiers: Hypertension type: essential hypertension Qualified Code(s): I10 - Essential (primary) hypertension
--- NOTE | 2018-10-13 12:11 | PN ---
Progress Note (short form) - Note Progress Note: pt seen/ examined overall same. awake Looks weak No distress Vital Signs Temp 97.3 F L 10/13/18 10:00 Pulse 100 H 10/13/18 10:00 Resp 18 10/13/18 10:00 BP 113/82 10/13/18 10:00 Pulse Ox 95 10/13/18 09:00 Intake & Output 10/12/18 10/13/18 10/13/18 23:59 11:59 23:59 Intake Total 336 Output Total 300 Balance 336 -300 Intake: IV 336 Normal Saline - 1,000 ml 336 @ 84 mls/hr IV ASDIR [facility] Rx#:[id number] Output: Urine 300 Void 300 Other: Voiding Method Urinal Urinal Bowel Movement No Active Medications Docusate Sodium (Colace -) 100 mg PO HS [facility] Last Admin: 10/12/18 23:13 Dose: Not Given Fentanyl (Duragesic 12mcg Patch -) 1 patch TD Q72H [facility] Stop: 10/10/18 16:14 Last Admin: 10/09/18 15:16 Dose: 1 patch IV Flush (Vu-Cath Flush) 10 ml IVPUSH PRN PRN PRN Reason: FLUSH Last Admin: 10/13/18 06:14 Dose: 10 ml Miscellaneous (Duragesic Patch Waste) 1 each TD PRN PRN PRN Reason: PAIN Last Admin: 10/09/18 15:22 Dose: 1 each Pantoprazole Sodium (Protonix -) 40 mg PO DAILY [facility] Last Admin: 10/13/18 09:50 Dose: 40 mg Potassium Chloride (Potassium Chloride Oral Liquid) 40 meq PO ONCE ONE Stop: 10/13/18 12:10 Sodium Bicarbonate (Sodium Bicarbonate -) 650 mg PO BID [facility] Last Admin: 10/13/18 09:50 Dose: 650 mg Warfarin Sodium (Coumadin -) 4 mg PO DAILY@1800 [facility] Last Admin: 10/12/18 18:42 Dose: Not Given Warfarin Sodium (Coumadin -) 2 mg PO ONCE@1800 [facility] Stop: 10/13/18 18:01 CBC, BMP 10/13/18 06:00 10/13/18 06:00 INR, PTT INR 1.33 (0.83-1.09) H 10/13/18 06:00 Microbiology 10/09/18 12:49 Blood Culture - Preliminary Blood - Peripheral Venous NO GROWTH OBTAINED AFTER 72 HOURS, INCUBATION TO CONTINUE FOR 2 DAYS. 10/09/18 12:45 Blood Culture - Preliminary Blood - Peripheral Venous NO GROWTH OBTAINED AFTER 72 HOURS, INCUBATION TO CONTINUE FOR 2 DAYS. Physical Constitutional: Yes: No Distress but weak/ chronic ill appearance Eyes: Yes: Conjunctiva Clear Neck: Yes: Supple Cardiovascular: Yes: Regular Rate and Rhythm Respiratory: Yes: Diminished Gastrointestinal: Yes: Soft, Other (colostomy bag +) Genitourinary: Yes: Scrotal Edema Edema: Yes Wound/Incision: Yes: Dressing Dry and Intact Neurological: Yes: Alert Psychiatric: Yes: Alert Assessment/Plan overall condition remains gaurded/ same meds reviewed oob - chair restarted on coumadin-- per inr-- extra dose again today f/u labs-- reviewed supplement k monitor lytes further plans per oncology-- will follow. discussed with nursing staff also. Problem List - Problems (1) ISMAEL (acute kidney injury) Code(s): N17.9 - ACUTE KIDNEY FAILURE, UNSPECIFIED (2) DVT (deep venous thrombosis) Code(s): I82.409 - ACUTE EMBOLISM AND THOMBOS UNSP DEEP VN UNSP LOWER EXTREMITY Qualifiers: DVT location: lower extremity Affected thrombotic vein of extremity: unspecified vein of extremity Chronicity: unspecified Laterality: unspecified laterality Qualified Code(s): I82.409 - Acute embolism and thrombosis of unspecified deep veins of unspecified lower extremity (3) Hypoalbuminemia due to protein-calorie malnutrition Code(s): E46 - UNSPECIFIED PROTEIN-CALORIE MALNUTRITION (4) Metastatic colon cancer to liver Code(s): C18.9 - MALIGNANT NEOPLASM OF COLON, UNSPECIFIED; C78.7 - SECONDARY MALIG NEOPLASM OF LIVER AND INTRAHEPATIC BILE DUCT
[2018-10-13] MEDS ORDERED: oxyCODONE HCL 5 MG TABLET PO PRN (12:49)
[2018-10-13] MEDS ORDERED: POTASSIUM CHLORIDE ORAL LIQUID 20 MEQ/15 ML PO ONE (13:00)
[2018-10-13] MEDS: SODIUM CHLORIDE 1,000 ML IV SCH (13:37)
--- NOTE | 2018-10-13 13:39 | PN ---
Progress Note (short form) - Note Progress Note: Renal follow up for ISMAEL Pt seen and examined at the bedside no acute complaints denies any sob, cp, abd pain reports making urine Vital Signs Temperature 97.3 F L 10/13/18 10:00 Pulse Rate 100 H 10/13/18 10:00 Respiratory Rate 18 10/13/18 10:00 Blood Pressure 113/82 10/13/18 10:00 O2 Sat by Pulse Oximetry (%) 95 10/13/18 09:00 Intake & Output 10/10/18 10/11/18 10/12/18 10/13/18 23:59 23:59 23:59 23:59 Intake Total 1650 2170 1176 Output Total 200 300 Balance 1650 1970 1176 -300 NAD awake and alert neck supple, no JVD dec BS at lung bases RRR ++ sacral and LE edema CBC, BMP 10/13/18 06:00 10/13/18 06:00 Current Medications Docusate Sodium (Colace -) 100 mg PO HS [facility] Last Admin: 10/12/18 23:13 Dose: Not Given Fentanyl (Duragesic 12mcg Patch -) 1 patch TD Q72H [facility] Stop: 10/10/18 16:14 Last Admin: 10/09/18 15:16 Dose: 1 patch IV Flush (Vu-Cath Flush) 10 ml IVPUSH PRN PRN PRN Reason: FLUSH Last Admin: 10/13/18 06:14 Dose: 10 ml Sodium Chloride (Normal Saline -) 1,000 mls @ 60 mls/hr IV ASDIR [facility] Miscellaneous (Duragesic Patch Waste) 1 each TD PRN PRN PRN Reason: PAIN Last Admin: 10/09/18 15:22 Dose: 1 each Oxycodone HCl (Roxicodone -) 5 mg PO Q6H PRN PRN Reason: PAIN SCALE 6-10 Pantoprazole Sodium (Protonix -) 40 mg PO DAILY [facility] Last Admin: 10/13/18 09:50 Dose: 40 mg Sodium Bicarbonate (Sodium Bicarbonate -) 650 mg PO BID [facility] Last Admin: 10/13/18 09:50 Dose: 650 mg Warfarin Sodium (Coumadin -) 4 mg PO DAILY@1800 [facility] Last Admin: 10/12/18 18:42 Dose: Not Given Warfarin Sodium (Coumadin -) 2 mg PO ONCE@1800 ONE Stop: 10/13/18 18:01 48 year old AA gentleman with hx of Metastatic Colon Ca s/p Colectomy, Hypertension, recent admission with ISMAEL requiring dialysis who presented from the [place] with swelling of his LE and found to have extrensive DVT with ISMAEL. #ISMAEL with nephrotic range proteinuria #LE DVT #Anemia #Metastatic Colon Ca #Diarrhea with positive C-diff antigen Renal function is stable but w/o improvement RPR is negative, ALVERTO pending Will check bladder scan to r/o urinary retention as pt is immobile and in bed Renal US done on 10/03 showed no signs of obstruction on A/c for DVT diarrhea improved to get oral KCL today prognosis is guarded Thank you Sami Pulido DO
[2018-10-13] MEDS: WARFARIN NA 2 MG TABLET (UD) PO SCH (17:07)
--- NOTE | 2018-10-13 17:53 | PN ---
Progress Note (short form) - Note Progress Note: awake and alert no complaints no fevers admitted with extensive LLE DVT Vital Signs Period Temp Pulse Resp BP Sys/Bal Pulse Ox Last 24 Hr 97.3 F-97.7 F 100-110 16-20 113-127/82-92 95 cor-rrr lungs decreased bs at bases abd soft, +colostomy ext +edema, no drainage CBC, BMP 10/13/18 06:00 10/13/18 06:00 Microbiology 10/13/18 06:15 Stool Clostridium difficile Antigen (JOSÉ MIGUEL) - Final-positive 10/13/18 06:15 Stool Clostridium difficile Toxin Assay - Final-negative 10/09/18 12:49 Blood - Peripheral Venous Blood Culture - Preliminary NO GROWTH OBTAINED AFTER 96 HOURS, INCUBATION TO CONTINUE FOR 1 DAYS. 10/09/18 12:45 Blood - Peripheral Venous Blood Culture - Preliminary NO GROWTH OBTAINED AFTER 96 HOURS, INCUBATION TO CONTINUE FOR 1 DAYS. 10/09/18 13:00 Urine - Urine Clean Catch Urine Culture - Final 10/01/18 10:45 Blood - Peripheral Venous Blood Culture - Final NO GROWTH AFTER 5 DAYS INCUBATION 10/01/18 11:00 Blood - Peripheral Venous Blood Culture - Final NO GROWTH AFTER 5 DAYS INCUBATION 10/02/18 14:00 Urine - Urine Clean Catch Urine Culture - Final Contaminated: Please Repeat a/p leukocytosis cdiff toxin negative, antigen positive nurse reports loose stools in colostomy bag colorectal cancer blood cultures cdiff pcr from colostomy po vancomycin d/w Dr Presley
[2018-10-13] MEDS ORDERED: WARFARIN NA 2 MG TABLET (UD) PO ONE (18:00)
[2018-10-13] MEDS: VANCOMYCIN 250 MG/5 ML ORAL SOLUTION PO SCH ×2 (18:36→23:31)
--- NOTE | 2018-10-13 20:55 | PN ---
Progress Note (short form) - Note Progress Note: Patient seen and examined FAILURE TO THRIVE WEAK Last Vital Signs Temp Pulse Resp BP Pulse Ox 97.7 F 110 H 18 126/84 95 10/13/18 15:03 10/13/18 15:03 10/13/18 15:03 10/13/18 15:03 10/13/18 09:00 Cor: RSR, No murmurs, No gallops Lungs: Clear to P&A Abd: Soft, Normal bowel sounds, No organomegaly ext. neg. LABS/MEDS REVIEWED A/P 48 y/o patient with metastatic rectal cancer, s/p FOLFOX/avastin Now on irinotecan s/p RT to sacral mass ISMAEL -- ? hypotension gentle hydration postvoid residual--76ml DVT -- subtherapeutic inr on coumadin--adjust per inr leukocytosis--check cx c.diff ag +---po rosa discussed with ID discussed with patient
[2018-10-13] MEDS: DOCUSATE SODIUM 100 MG CAPSULE (FP) PO SCH (21:31)
[2018-10-14] MEDS: VANCOMYCIN 250 MG/5 ML ORAL SOLUTION PO SCH ×3 (05:55→18:53)
[2018-10-14 08:05] LABS: BASO % 0.2 % (0-2.0); HEMATOCRIT 21.3 % (35.4-49); LYMPH % 6.1 % (8-40); MCH 28.9 pg (25.7-33.7); MCHC 33.2 g/dl (32.0-35.9); MEAN CELL VOLUME 87.2 fl (80-96); MEAN PLT VOLUME 8.9 fl (7.5-11.1); MONO % 5.9 % (3.8-10.2); NEUT % 87.8 % (42.8-82.8); PLATELET COUNT 152 K/MM3 (134-434); RBC 2.44 M/mm3 (4.00-5.60); WHITE BLOOD COUNT 11.9 K/mm3 (4.0-10.0)
[2018-10-14 08:07] LABS: ALBUMIN 1.2 g/dl (3.4-5.0); ALK PHOS 929 U/L (45-117); ANION GAP 11 MMOL/L (8-16); BILIRUBIN,TOTAL 2.1 mg/dL (0.2-1); BLOOD UREA NITROGEN 42 mg/dL (7-18); CHLORIDE 118 mmol/L (98-107); CO2 17 mmol/L (21-32); CREATININE 2.6 mg/dL (0.55-1.3); GLUCOSE,RANDOM 76 mg/dL (74-106); POTASSIUM 3.5 mmol/L (3.5-5.1); SGOT/AST 154 U/L (15-37); SGPT/ALT 32 U/L (13-61); SODIUM 147 mmol/L (136-145); TOT PROT 4.3 g/dl (6.4-8.2)
--- NOTE | 2018-10-14 09:17 | PN ---
Progress Note (short form) - Note Progress Note: appears fatigued No bleeding episodes cdiff Ag positive Vital Signs - 24 hr 10/13/18 10/13/18 10/13/18 10:00 15:03 21:00 Temperature 97.3 F L 97.7 F Pulse Rate 100 H 110 H Respiratory 18 18 Rate Blood Pressure 113/82 126/84 O2 Sat by Pulse 95 Oximetry (%) 10/13/18 10/14/18 22:00 05:47 Temperature 97.7 F 97.4 F L Pulse Rate 110 H 104 H Respiratory 18 18 Rate Blood Pressure 126/84 103/84 O2 Sat by Pulse Oximetry (%) Current Medications Generic Name Dose Route Start Last Admin Trade Name Freq PRN Reason Stop Dose Admin Docusate Sodium 100 mg 10/01/18 22:00 10/13/18 21:31 Colace - PO 100 mg HS AJ Administration Fentanyl 1 patch 10/03/18 16:15 10/09/18 15:16 Duragesic 12mcg Patch - TD 10/10/18 16:14 1 patch Q72H AJ Administration IV Flush 10 ml 10/06/18 18:32 10/13/18 06:14 Vu-Cath Flush IVPUSH 10 ml PRN PRN Administration FLUSH Sodium Chloride 1,000 mls @ 60 mls/hr 10/13/18 13:00 10/13/18 13:37 Normal Saline - IV 60 mls/hr ASDIR AJ Administration Miscellaneous 1 each 10/03/18 15:37 10/09/18 15:22 Duragesic Patch Waste TD 1 each PRN PRN Administration PAIN Oxycodone HCl 5 mg 10/13/18 12:49 Roxicodone - PO Q6H PRN PAIN SCALE 6-10 Pantoprazole Sodium 40 mg 10/02/18 10:00 10/13/18 09:50 Protonix - PO 40 mg DAILY AJ Administration Sodium Bicarbonate 650 mg 10/09/18 11:00 10/13/18 21:31 Sodium Bicarbonate - PO 650 mg BID AJ Administration Vancomycin HCl 125 mg 10/13/18 18:00 10/14/18 05:55 Vancomycin Oral Solution PO 125 mg Q6HPO AJ Administration Warfarin Sodium 4 mg 10/11/18 18:00 10/13/18 17:07 Coumadin - PO 4 mg DAILY@1800 AJ Administration Laboratory Results - last 24 hr 10/13/18 10/13/18 10/14/18 06:00 06:00 06:45 WBC 11.9 H RBC 2.44 L Hgb 7.0 L Hct 21.3 L D MCV 87.2 MCH 28.9 MCHC 33.2 RDW 17.0 H Plt Count 152 D MPV 8.9 Absolute Neuts (auto) 10.4 H Neutrophils % 87.8 H Neutrophils % (Manual) 89.9 H Band Neutrophils % 2.0 Lymphocytes % 6.1 L Lymphocytes % (Manual) 3.0 L Monocytes % 5.9 Monocytes % (Manual) 4 Eosinophils % 0.0 Eosinophils % (Manual) 0.0 Basophils % 0.2 D Basophils % (Manual) 0.0 Myelocytes % (Man) 0 Promyelocytes % (Man) 0 Blast Cells % (Manual) 0 Nucleated RBC % 0 Metamyelocytes 0 Hypochromia 0 Platelet Estimate Normal Platelet Comment Present Polychromasia 2+ Poikilocytosis 1+ Anisocytosis 2+ Microcytosis 0 Macrocytosis 1+ Ovalocytes 1+ Sodium Potassium Chloride Carbon Dioxide Anion Gap BUN Creatinine Creat Clearance w eGFR Random Glucose Calcium Total Bilirubin AST ALT Alkaline Phosphatase Total Protein Albumin RPR Titer Nonreactive 10/14/18 06:45 WBC RBC Hgb Hct MCV MCH MCHC RDW Plt Count MPV Absolute Neuts (auto) Neutrophils % Neutrophils % (Manual) Band Neutrophils % Lymphocytes % Lymphocytes % (Manual) Monocytes % Monocytes % (Manual) Eosinophils % Eosinophils % (Manual) Basophils % Basophils % (Manual) Myelocytes % (Man) Promyelocytes % (Man) Blast Cells % (Manual) Nucleated RBC % Metamyelocytes Hypochromia Platelet Estimate Platelet Comment Polychromasia Poikilocytosis Anisocytosis Microcytosis Macrocytosis Ovalocytes Sodium 147 H Potassium 3.5 Chloride 118 H Carbon Dioxide 17 L Anion Gap 11 BUN 42 H Creatinine 2.6 H Creat Clearance w eGFR 26.37 Random Glucose 76 Calcium 7.0 L Total Bilirubin 2.1 H AST 154 H ALT 32 Alkaline Phosphatase 929 H Total Protein 4.3 L Albumin 1.2 L RPR Titer S1 S 2 RRR Lungs clear Abd- soft, NT Edema+ A/P renal function same continue with meds transfusion ordered- 2 units on coumadin check stool guaic prognosis guarded Problem List - Problems (1) DVT (deep venous thrombosis) Code(s): I82.409 - ACUTE EMBOLISM AND THOMBOS UNSP DEEP VN UNSP LOWER EXTREMITY Qualifiers: DVT location: lower extremity Affected thrombotic vein of extremity: unspecified vein of extremity Chronicity: unspecified Laterality: unspecified laterality Qualified Code(s): I82.409 - Acute embolism and thrombosis of unspecified deep veins of unspecified lower extremity (2) Metastatic colon cancer to liver Code(s): C18.9 - MALIGNANT NEOPLASM OF COLON, UNSPECIFIED; C78.7 - SECONDARY MALIG NEOPLASM OF LIVER AND INTRAHEPATIC BILE DUCT (3) Adenocarcinoma Code(s): C80.1 - MALIGNANT (PRIMARY) NEOPLASM, UNSPECIFIED (4) Anemia due to blood loss, chronic Code(s): D50.0 - IRON DEFICIENCY ANEMIA SECONDARY TO BLOOD LOSS (CHRONIC) (5) Hypoalbuminemia due to protein-calorie malnutrition Code(s): E46 - UNSPECIFIED PROTEIN-CALORIE MALNUTRITION
[2018-10-14 11:08] LABS: ANISOCYTOSIS 1+; MACROCYTOSIS 1+
[2018-10-14 11:31] LABS: PLATELET ESTIMATE ADEQUATE
[2018-10-14] MEDS: PANTOPRAZOLE 40 MG TABLET (FP) PO SCH (11:51)
[2018-10-14] MEDS: SODIUM BICARBONATE 650 MG TABLET PO SCH ×2 (11:51→21:25)
[2018-10-14] MEDS: SODIUM CHLORIDE 1,000 ML IV SCH (14:46)
--- NOTE | 2018-10-14 15:00 | PN ---
Progress Note (short form) - Note Progress Note: awake and alert for transfusion today Vital Signs Period Temp Pulse Resp BP Sys/Bal Pulse Ox Last 24 Hr 97.4 F-98 F 99-110 18-18 103-126/84-90 95-100 cor-rrr lungs clear abd soft, watery stool in ostomy bag ext +edema +port CBC, BMP 10/14/18 06:45 10/14/18 06:45 Microbiology 10/09/18 12:49 Blood - Peripheral Venous Blood Culture - Final NO GROWTH AFTER 5 DAYS INCUBATION 10/09/18 12:45 Blood - Peripheral Venous Blood Culture - Final NO GROWTH AFTER 5 DAYS INCUBATION 10/13/18 18:05 Stool Clostridium difficile (PCR) - Preliminary 10/13/18 06:15 Stool Clostridium difficile Antigen (JOSÉ MIGUEL) - Final 10/13/18 06:15 Stool Clostridium difficile Toxin Assay - Final 10/09/18 13:00 Urine - Urine Clean Catch Urine Culture - Final 10/01/18 10:45 Blood - Peripheral Venous Blood Culture - Final NO GROWTH AFTER 5 DAYS INCUBATION 10/01/18 11:00 Blood - Peripheral Venous Blood Culture - Final NO GROWTH AFTER 5 DAYS INCUBATION 10/02/18 14:00 Urine - Urine Clean Catch Urine Culture - Final Contaminated: Please Repeat Current Medications Docusate Sodium (Colace -) 100 mg PO HS AJ Last Admin: 10/13/18 21:31 Dose: 100 mg Fentanyl (Duragesic 12mcg Patch -) 1 patch TD Q72H [facility] Stop: 10/10/18 16:14 Last Admin: 10/09/18 15:16 Dose: 1 patch IV Flush (Vu-Cath Flush) 10 ml IVPUSH PRN PRN PRN Reason: FLUSH Last Admin: 10/13/18 06:14 Dose: 10 ml Sodium Chloride (Normal Saline -) 1,000 mls @ 60 mls/hr IV ASDIR AJ Last Admin: 10/14/18 14:46 Dose: Not Given Miscellaneous (Duragesic Patch Waste) 1 each TD PRN PRN PRN Reason: PAIN Last Admin: 10/09/18 15:22 Dose: 1 each Oxycodone HCl (Roxicodone -) 5 mg PO Q6H PRN PRN Reason: PAIN SCALE 6-10 Pantoprazole Sodium (Protonix -) 40 mg PO DAILY [facility] Last Admin: 10/14/18 11:51 Dose: 40 mg Sodium Bicarbonate (Sodium Bicarbonate -) 650 mg PO BID [facility] Last Admin: 10/14/18 11:51 Dose: 650 mg Vancomycin HCl (Vancomycin Oral Solution) 125 mg PO Q6HPO [facility] Last Admin: 10/14/18 05:55 Dose: 125 mg Warfarin Sodium (Coumadin -) 4 mg PO DAILY@1800 [facility] Last Admin: 10/13/18 17:07 Dose: 4 mg a/p leukocytosis improved cdiff toxin negative, antigen positive nurse reports loose stools in colostomy bag colorectal cancer no drainage from LLE +LLE DVT blood cultures -pending cdiff pcr from colostomy pending po vancomycin day #1
--- NOTE | 2018-10-14 19:05 | PN ---
Progress Note (short form) - Note Progress Note: seen and examined Poor p.o intake Last Vital Signs Temp Pulse Resp BP Pulse Ox 97.6 F 97 H 18 132/82 100 10/14/18 18:50 10/14/18 18:50 10/14/18 18:50 10/14/18 18:50 10/14/18 09:00 Cor: RSR, No murmurs, No gallops Lungs: diminished breath sounds Abd: Soft, Normal bowel sounds, No organomegaly,functioning colostomy Ext: LE edema Skin: No rashes, Integument intact CBC, BMP 10/14/18 06:45 10/14/18 06:45 Current Medications Generic Name Dose Route Start Last Admin Trade Name Freq PRN Reason Stop Dose Admin Docusate Sodium 100 mg 10/01/18 22:00 10/13/18 21:31 Colace - PO 100 mg HS AJ Administration Fentanyl 1 patch 10/03/18 16:15 10/09/18 15:16 Duragesic 12mcg Patch - TD 10/10/18 16:14 1 patch Q72H AJ Administration IV Flush 10 ml 10/06/18 18:32 10/13/18 06:14 Vu-Cath Flush IVPUSH 10 ml PRN PRN Administration FLUSH Sodium Chloride 1,000 mls @ 60 mls/hr 10/13/18 13:00 10/14/18 14:46 Normal Saline - IV Not Given ASDIR AJ Miscellaneous 1 each 10/03/18 15:37 10/09/18 15:22 Duragesic Patch Waste TD 1 each PRN PRN Administration PAIN Oxycodone HCl 5 mg 10/13/18 12:49 Roxicodone - PO Q6H PRN PAIN SCALE 6-10 Pantoprazole Sodium 40 mg 10/02/18 10:00 10/14/18 11:51 Protonix - PO 40 mg DAILY AJ Administration Sodium Bicarbonate 650 mg 10/09/18 11:00 10/14/18 11:51 Sodium Bicarbonate - PO 650 mg BID AJ Administration Vancomycin HCl 125 mg 10/13/18 18:00 10/14/18 18:53 Vancomycin Oral Solution PO 125 mg Q6HPO AJ Administration Warfarin Sodium 4 mg 10/11/18 18:00 10/13/18 17:07 Coumadin - PO 4 mg DAILY@1800 AJ Administration Impression: Metastatic colon ca S/P chemotherapy sacral mass - s/p RT Anemia - for transfusion therapy CKD/ISMAEL DVT On p.o. vancomycin Awaiting c.diff -pcr transfusion of p.c.
[2018-10-14] MEDS: DOCUSATE SODIUM 100 MG CAPSULE (FP) PO SCH (21:25)
[2018-10-14 22:11] LABS: INR 2.14 (0.83-1.09); PROTHROMBIN TIME (PATIENT) 25.5 SEC (9.7-13.0)
[2018-10-15] MEDS: WARFARIN NA 2 MG TABLET (UD) PO SCH ×2 (00:34→18:08)
[2018-10-15] MEDS: VANCOMYCIN 250 MG/5 ML ORAL SOLUTION PO SCH ×4 (00:34→18:08)
[2018-10-15 07:12] LABS: BASO % 0.2 % (0-2.0); HEMATOCRIT 36.1 % (35.4-49); HEMOGLOBIN 12.1 GM/dL (11.7-16.9); LYMPH % 13.7 % (8-40); MCHC 33.6 g/dl (32.0-35.9); MEAN CELL VOLUME 89.4 fl (80-96); MEAN PLT VOLUME 8.9 fl (7.5-11.1); MONO % 5.9 % (3.8-10.2); NEUT % 80.2 % (42.8-82.8); PLATELET COUNT 161 K/MM3 (134-434); RBC 4.04 M/mm3 (4.00-5.60); RDW 16.9 % (11.9-15.9); WHITE BLOOD COUNT 14.6 K/mm3 (4.0-10.0)
[2018-10-15 08:16] LABS: ALBUMIN 0.9 g/dl (3.4-5.0); ALK PHOS 722 U/L (45-117); ANION GAP 11 MMOL/L (8-16); BILIRUBIN,TOTAL 1.8 mg/dL (0.2-1); BLOOD UREA NITROGEN 35 mg/dL (7-18); CHLORIDE 125 mmol/L (98-107); CO2 14 mmol/L (21-32); CREATININE 1.9 mg/dL (0.55-1.3); SGOT/AST 92 U/L (15-37); SGPT/ALT 20 U/L (13-61); SODIUM 149 mmol/L (136-145); TOT PROT 3.2 g/dl (6.4-8.2)
[2018-10-15 08:26] LABS: CALCIUM 5.5 mg/dL (8.5-10.1); GLUCOSE,RANDOM 48 mg/dL (74-106); POTASSIUM 2.5 mmol/L (3.5-5.1)
[2018-10-15] MEDS ORDERED: POTASSIUM CHLORIDE TABS 20 MEQ TABLET.ER (FP) PO ONE (08:45)
--- NOTE | 2018-10-15 08:54 | PN ---
Progress Note (short form) - Note Progress Note: awake and alert Vital Signs Period Temp Pulse Resp BP Sys/Bal Pulse Ox Last 24 Hr 97.4 F-98 F 96-103 18-20 119-138/82-99 100-100 cor-rrr lungs clear abd soft, +ostomy ext +edema RLE no drainage from the leg CBC, BMP 10/15/18 06:00 10/15/18 06:00 Microbiology 10/13/18 19:30 Blood - Peripheral Venous Blood Culture - Preliminary NO GROWTH OBTAINED AFTER 24 HOURS, INCUBATION TO CONTINUE FOR 4 DAYS. 10/13/18 18:05 Blood - Vu Cath Blood Culture - Preliminary NO GROWTH OBTAINED AFTER 24 HOURS, INCUBATION TO CONTINUE FOR 4 DAYS. 10/09/18 12:49 Blood - Peripheral Venous Blood Culture - Final NO GROWTH AFTER 5 DAYS INCUBATION 10/09/18 12:45 Blood - Peripheral Venous Blood Culture - Final NO GROWTH AFTER 5 DAYS INCUBATION 10/13/18 18:05 Stool Clostridium difficile (PCR) - Preliminary 10/13/18 06:15 Stool Clostridium difficile Antigen (JOSÉ MIGUEL) - Final 10/13/18 06:15 Stool Clostridium difficile Toxin Assay - Final 10/09/18 13:00 Urine - Urine Clean Catch Urine Culture - Final 10/01/18 10:45 Blood - Peripheral Venous Blood Culture - Final NO GROWTH AFTER 5 DAYS INCUBATION 10/01/18 11:00 Blood - Peripheral Venous Blood Culture - Final NO GROWTH AFTER 5 DAYS INCUBATION 10/02/18 14:00 Urine - Urine Clean Catch Urine Culture - Final Contaminated: Please Repeat a/p leukocytosis persists cdiff toxin negative, antigen positive nurse reports loose stools in colostomy bag colorectal cancer no drainage from LLE +LLE DVT blood cultures negative cdiff pcr from colostomy pending po vancomycin day #2 if leukocytosis persists consider reimaging of the LLE to r/o collection
[2018-10-15] MEDS: KCL 10 MEQ IVPB 10 MEQ/100 ML INFUS.BAG IVPB SCH ×3 (11:11→14:57)
[2018-10-15] MEDS: SODIUM CHLORIDE 1,000 ML IV SCH ×2 (11:11→14:57)
[2018-10-15] MEDS: SODIUM BICARBONATE 650 MG TABLET PO SCH ×2 (11:13→22:57)
[2018-10-15] MEDS: PANTOPRAZOLE 40 MG TABLET (FP) PO SCH (11:13)
[2018-10-15 11:29] LABS: ACANTHOCYTES 0; ANISOCYTOSIS 0; HELMET CELLS 0; HOWELL-JOLLY BODIES 0; MACROCYTOSIS 0; OVALOCYTE 0; PLATELET ESTIMATE NORMAL; ROULEAU 0; SICKELED CELLS 0; TARGET CELLS 0; TEAR DROP CELLS 0; TOXIC GRANULATION 0
--- NOTE | 2018-10-15 12:29 | PN ---
Progress Note (short form) - Note Progress Note: appears fatigued No bleeding episodes no loose stools Vital Signs - 24 hr 10/14/18 10/14/18 10/14/18 15:08 18:50 21:00 Temperature 97.6 F 97.6 F Pulse Rate 98 H 97 H Respiratory 18 18 Rate Blood Pressure 120/85 132/82 O2 Sat by Pulse 100 Oximetry (%) 10/15/18 10/15/18 04:00 06:24 Temperature 97.5 F L 97.4 F L Pulse Rate 103 H 96 H Respiratory 18 20 Rate Blood Pressure 129/95 138/99 O2 Sat by Pulse Oximetry (%) Current Medications Generic Name Dose Route Start Last Admin Trade Name Freq PRN Reason Stop Dose Admin Docusate Sodium 100 mg 10/01/18 22:00 10/14/18 21:25 Colace - PO Not Given HS AJ Fentanyl 1 patch 10/03/18 16:15 10/09/18 15:16 Duragesic 12mcg Patch - TD 10/10/18 16:14 1 patch Q72H AJ Administration IV Flush 10 ml 10/06/18 18:32 10/13/18 06:14 Vu-Cath Flush IVPUSH 10 ml PRN PRN Administration FLUSH Sodium Chloride 1,000 mls @ 60 mls/hr 10/13/18 13:00 10/15/18 11:11 Normal Saline - IV 60 mls/hr ASDIR AJ Administration Miscellaneous 1 each 10/03/18 15:37 10/09/18 15:22 Duragesic Patch Waste TD 1 each PRN PRN Administration PAIN Oxycodone HCl 5 mg 10/13/18 12:49 Roxicodone - PO Q6H PRN PAIN SCALE 6-10 Pantoprazole Sodium 40 mg 10/02/18 10:00 10/15/18 11:13 Protonix - PO 40 mg DAILY AJ Administration Sodium Bicarbonate 650 mg 10/09/18 11:00 10/15/18 11:13 Sodium Bicarbonate - PO 650 mg BID AJ Administration Vancomycin HCl 125 mg 10/13/18 18:00 10/15/18 06:51 Vancomycin Oral Solution PO 125 mg Q6HPO AJ Administration Warfarin Sodium 4 mg 10/11/18 18:00 10/15/18 00:34 Coumadin - PO 4 mg DAILY@1800 AJ Administration Laboratory Results - last 24 hr 10/13/18 10/14/18 10/14/18 06:00 10:50 21:45 WBC RBC Hgb Hct MCV MCH MCHC RDW Plt Count MPV Absolute Neuts (auto) Neutrophils % Neutrophils % (Manual) Band Neutrophils % Lymphocytes % Lymphocytes % (Manual) Monocytes % Monocytes % (Manual) Eosinophils % Eosinophils % (Manual) Basophils % Basophils % (Manual) Myelocytes % (Man) Promyelocytes % (Man) Blast Cells % (Manual) Nucleated RBC % Metamyelocytes Hypochromia Toxic Granulation Dohle Bodies Platelet Estimate Polychromasia Poikilocytosis Basophilic Stippling Anisocytosis Microcytosis Macrocytosis Spherocytes Sickle Cells Target Cells Tear Drop Cells Ovalocytes Stomatocytes Helmet Cells [place] Bodies [place] Rings [place] Cells Acanthocytes (Spur) Rouleaux Fragmented RBCs Schistocytes PT with INR 25.50 H INR 2.14 H Sodium Potassium Chloride Carbon Dioxide Anion Gap BUN Creatinine Creat Clearance w eGFR Random Glucose Calcium Total Bilirubin AST ALT Alkaline Phosphatase Total Protein Albumin ALVERTO Screen Negative Blood Type O POSITIVE Antibody Screen Negative Crossmatch See Detail 10/15/18 10/15/18 06:00 06:00 WBC 14.6 H RBC 4.04 Hgb 12.1 Hct 36.1 D MCV 89.4 MCH 30.0 MCHC 33.6 RDW 16.9 H Plt Count 161 MPV 8.9 Absolute Neuts (auto) 11.7 H Neutrophils % 80.2 Neutrophils % (Manual) 89.9 H Band Neutrophils % 1.0 Lymphocytes % 13.7 D Lymphocytes % (Manual) 4.1 L D Monocytes % 5.9 Monocytes % (Manual) 4 Eosinophils % 0.0 Eosinophils % (Manual) 0.0 Basophils % 0.2 Basophils % (Manual) 0.0 Myelocytes % (Man) 1 D Promyelocytes % (Man) 0 Blast Cells % (Manual) 0 Nucleated RBC % 0 Metamyelocytes 0 Hypochromia 0 Toxic Granulation 0 Dohle Bodies 0 Platelet Estimate Normal Polychromasia 0 Poikilocytosis 0 Basophilic Stippling 0 Anisocytosis 0 Microcytosis 0 Macrocytosis 0 Spherocytes 0 Sickle Cells 0 Target Cells 0 Tear Drop Cells 0 Ovalocytes 0 Stomatocytes 0 Helmet Cells 0 [place] Bodies 0 [place] Rings 0 [place] Cells 0 Acanthocytes (Spur) 0 Rouleaux 0 Fragmented RBCs 0 Schistocytes 0 PT with INR INR Sodium 149 H Potassium 2.5 L* Chloride 125 H Carbon Dioxide 14 L Anion Gap 11 BUN 35 H Creatinine 1.9 H Creat Clearance w eGFR 37.87 Random Glucose 48 L* Calcium 5.5 L* Total Bilirubin 1.8 H AST 92 H ALT 20 Alkaline Phosphatase 722 H Total Protein 3.2 L Albumin 0.9 L ALVERTO Screen Blood Type Antibody Screen Crossmatch S1 S 2 RRR Lungs clear Abd- soft, NT Edema+ A/P replace lytes continue with meds s/p PRBC on coumadin check stool guaic prognosis guarded ID follow up noted spoke with renal consider palliative care Problem List - Problems (1) DVT (deep venous thrombosis) Code(s): I82.409 - ACUTE EMBOLISM AND THOMBOS UNSP DEEP VN UNSP LOWER EXTREMITY Qualifiers: DVT location: lower extremity Affected thrombotic vein of extremity: unspecified vein of extremity Chronicity: unspecified Laterality: unspecified laterality Qualified Code(s): I82.409 - Acute embolism and thrombosis of unspecified deep veins of unspecified lower extremity (2) Metastatic colon cancer to liver Code(s): C18.9 - MALIGNANT NEOPLASM OF COLON, UNSPECIFIED; C78.7 - SECONDARY MALIG NEOPLASM OF LIVER AND INTRAHEPATIC BILE DUCT (3) Adenocarcinoma Code(s): C80.1 - MALIGNANT (PRIMARY) NEOPLASM, UNSPECIFIED (4) Anemia due to blood loss, chronic Code(s): D50.0 - IRON DEFICIENCY ANEMIA SECONDARY TO BLOOD LOSS (CHRONIC) (5) Hypoalbuminemia due to protein-calorie malnutrition Code(s): E46 - UNSPECIFIED PROTEIN-CALORIE MALNUTRITION
[2018-10-15 14:41] VITALS: BMI 30.4
--- NOTE | 2018-10-15 15:29 | PN ---
Progress Note (short form) - Note Progress Note: Renal follow up for ISMAEL Pt seen and examined at the bedside no acute complaints diarrhea resolved no sob, cp, abd pain, N/V/D Vital Signs Temperature 97.3 F L 10/15/18 14:59 Pulse Rate 100 H 10/15/18 14:59 Respiratory Rate 18 10/15/18 14:59 Blood Pressure 123/92 10/15/18 14:59 O2 Sat by Pulse Oximetry (%) 100 10/15/18 09:00 NAD awake and alert neck supple, no JVD dec BS at lung bases RRR ++ sacral and LE edema CBC, BMP 10/15/18 06:00 10/15/18 06:00 Current Medications Docusate Sodium (Colace -) [address] [facility] Last Admin: 10/14/18 21:25 Dose: Not Given Fentanyl (Duragesic 12mcg Patch -) [address] [facility] Stop: 10/10/18 16:14 Last Admin: 10/09/18 15:16 Dose: 1 patch IV Flush (Vu-Cath Flush) 10 ml IVPUSH PRN PRN PRN Reason: FLUSH Last Admin: 10/13/18 06:14 Dose: 10 ml Sodium Chloride (Normal Saline -) 1,000 mls @ 60 mls/hr IV ASDIR [facility] Last Admin: 10/15/18 14:57 Dose: Not Given Miscellaneous (Duragesic Patch Waste) 1 each TD PRN PRN PRN Reason: PAIN Last Admin: 10/09/18 15:22 Dose: 1 each Oxycodone HCl (Roxicodone -) 5 mg PO Q6H PRN PRN Reason: PAIN SCALE 6-10 Pantoprazole Sodium (Protonix -) [address] [facility] Last Admin: 10/15/18 11:13 Dose: 40 mg Sodium Bicarbonate (Sodium Bicarbonate -) [address] [facility] Last Admin: 10/15/18 11:13 Dose: 650 mg Vancomycin HCl (Vancomycin Oral Solution) [address] [facility] Last Admin: 10/15/18 13:00 Dose: 125 mg Warfarin Sodium (Coumadin -) 4 mg PO DAILY@1800 [facility] Last Admin: 10/15/18 00:34 Dose: 4 mg 48 year old AA gentleman with hx of Metastatic Colon Ca s/p Colectomy, Hypertension, recent admission with ISMAEL requiring dialysis who [place] with [place] of his LE and found to have extensive DVT with ISMAEL. #ISMAEL with nephrotic range proteinuria #LE DVT #Anemia #Metastatic Colon Ca #Diarrhea with positive C-diff antigen Renal function is stable but w/o improvement RPR is negative, ALVERTO negative supplement K with IV and PO with repeat BMP this afternoon on A/c for DVT diarrhea improved repeat BMP this evening prognosis is guarded consider palliative evaluation Thank you Sami Pulido DO
--- NOTE | 2018-10-15 17:15 | PN ---
Progress Note (short form) - Note Progress Note: Patient seen and examined S/P transfusion of packed cells Little change in clinical course Last Vital Signs Temp Pulse Resp BP Pulse Ox 97.3 F L 100 H 18 123/92 100 10/15/18 14:59 10/15/18 14:59 10/15/18 14:59 10/15/18 14:59 10/15/18 09:00 HEENT: EZEQUIEL, EOM Intact Oropharynx: No thrush, No mucositis Cor: RSR, No murmurs, No gallops Lungs: Clear to P&A Abd: ascites, colostomy Ext: significant edema Skin: No rashes, Integument intact CBC, BMP 10/15/18 06:00 10/15/18 06:00 Current Medications Generic Name Dose Route Start Last Admin Trade Name Freq PRN Reason Stop Dose Admin Docusate Sodium 100 mg 10/01/18 22:00 10/14/18 21:25 Colace - PO Not Given HS AJ Fentanyl 1 patch 10/03/18 16:15 10/09/18 15:16 Duragesic 12mcg Patch - TD 10/10/18 16:14 1 patch Q72H AJ Administration IV Flush 10 ml 10/06/18 18:32 10/13/18 06:14 Vu-Cath Flush IVPUSH 10 ml PRN PRN Administration FLUSH Sodium Chloride 1,000 mls @ 60 mls/hr 10/13/18 13:00 10/15/18 14:57 Normal Saline - IV Not Given ASDIR AJ Miscellaneous 1 each 10/03/18 15:37 10/09/18 15:22 Duragesic Patch Waste TD 1 each PRN PRN Administration PAIN Oxycodone HCl 5 mg 10/13/18 12:49 Roxicodone - PO Q6H PRN PAIN SCALE 6-10 Pantoprazole Sodium 40 mg 10/02/18 10:00 10/15/18 11:13 Protonix - PO 40 mg DAILY AJ Administration Sodium Bicarbonate 650 mg 10/09/18 11:00 10/15/18 11:13 Sodium Bicarbonate - PO 650 mg BID AJ Administration Vancomycin HCl 125 mg 10/13/18 18:00 10/15/18 13:00 Vancomycin Oral Solution PO 125 mg Q6HPO AJ Administration Warfarin Sodium 4 mg 10/11/18 18:00 10/15/18 00:34 Coumadin - PO 4 mg DAILY@1800 AJ Administration Impression: Metastatic colon cancer sacral mass -s/p RT CKD/ISMAEL Anemia- s/p transfusion therapy LE DVT Diarrhea Plan: GOC and ?? of continuation of treatment to be evaluated a/c for DVT monitoring chems and electrolyte adjustments
[2018-10-15 17:56] LABS: ANION GAP 12 MMOL/L (8-16); BLOOD UREA NITROGEN 43 mg/dL (7-18); CALCIUM 7.3 mg/dL (8.5-10.1); CHLORIDE 118 mmol/L (98-107); CO2 16 mmol/L (21-32); CREATININE 2.5 mg/dL (0.55-1.3); GLUCOSE,RANDOM 65 mg/dL (74-106); POTASSIUM 3.9 mmol/L (3.5-5.1); SODIUM 146 mmol/L (136-145)
[2018-10-15] MEDS: DOCUSATE SODIUM 100 MG CAPSULE (FP) PO SCH (22:57)
[2018-10-16] MEDS: VANCOMYCIN 250 MG/5 ML ORAL SOLUTION PO SCH ×5 (01:14→23:29)
[2018-10-16] MEDS: SODIUM CHLORIDE 1,000 ML IV SCH ×2 (06:27→18:46)
[2018-10-16 07:25] LABS: BASO % 0.5 % (0-2.0); EOS % 0.1 % (0-4.5); HEMATOCRIT 36.3 % (35.4-49); HEMOGLOBIN 12.2 GM/dL (11.7-16.9); LYMPH % 21.7 % (8-40); MCH 30.2 pg (25.7-33.7); MCHC 33.7 g/dl (32.0-35.9); MEAN CELL VOLUME 89.5 fl (80-96); MEAN PLT VOLUME 9.1 fl (7.5-11.1); MONO % 6.1 % (3.8-10.2); NEUT % 71.6 % (42.8-82.8); PLATELET COUNT 163 K/MM3 (134-434); RBC 4.05 M/mm3 (4.00-5.60); RDW 16.9 % (11.9-15.9); WHITE BLOOD COUNT 13.8 K/mm3 (4.0-10.0)
[2018-10-16 08:07] LABS: INR 3.8 (0.83-1.09); PROTHROMBIN TIME (PATIENT) 45.5 SEC (9.7-13.0)
[2018-10-16] MEDS: PANTOPRAZOLE 40 MG TABLET (FP) PO SCH (11:57)
[2018-10-16] MEDS: SODIUM BICARBONATE 650 MG TABLET PO SCH ×2 (11:57→22:40)
--- NOTE | 2018-10-16 11:57 | PN ---
Progress Note (short form) - Note Progress Note: appears fatigued No bleeding episodes loose stools++ Vital Signs - 24 hr 10/15/18 10/15/18 10/15/18 14:59 17:45 21:00 Temperature 97.3 F L 98.1 F Pulse Rate 100 H 96 H Respiratory 18 18 18 Rate Blood Pressure 123/92 115/84 10/15/18 10/16/18 22:00 05:59 Temperature 97.4 F L Pulse Rate 102 H Respiratory 18 20 Rate Blood Pressure 126/98 Current Medications Generic Name Dose Route Start Last Admin Trade Name Freq PRN Reason Stop Dose Admin Collagenase 1 applic 10/16/18 10:00 Santyl - TP DAILY AJ Protocol Docusate Sodium 100 mg 10/01/18 22:00 10/15/18 22:57 Colace - PO 100 mg HS AJ Administration Fentanyl 1 patch 10/03/18 16:15 10/09/18 15:16 Duragesic 12mcg Patch - TD 10/10/18 16:14 1 patch Q72H AJ Administration IV Flush 10 ml 10/06/18 18:32 10/13/18 06:14 Vu-Cath Flush IVPUSH 10 ml PRN PRN Administration FLUSH Sodium Chloride 1,000 mls @ 60 mls/hr 10/13/18 13:00 10/16/18 06:27 Normal Saline - IV 60 mls/hr ASDIR AJ Administration Miscellaneous 1 each 10/03/18 15:37 10/09/18 15:22 Duragesic Patch Waste TD 1 each PRN PRN Administration PAIN Oxycodone HCl 5 mg 10/13/18 12:49 Roxicodone - PO Q6H PRN PAIN SCALE 6-10 Pantoprazole Sodium 40 mg 10/02/18 10:00 10/15/18 11:13 Protonix - PO 40 mg DAILY AJ Administration Sodium Bicarbonate 1,300 mg 10/15/18 22:00 10/15/18 22:57 Sodium Bicarbonate - PO 1,300 mg BID AJ Administration Vancomycin HCl 125 mg 10/13/18 18:00 10/16/18 06:14 Vancomycin Oral Solution PO 125 mg Q6HPO AJ Administration Warfarin Sodium 4 mg 10/11/18 18:00 10/15/18 18:08 Coumadin - PO 4 mg DAILY@1800 AJ Administration Laboratory Results - last 24 hr 10/15/18 10/15/18 10/16/18 06:00 16:20 06:00 WBC 13.8 H RBC 4.05 Hgb 12.2 Hct 36.3 MCV 89.5 MCH 30.2 MCHC 33.7 RDW 16.9 H Plt Count 163 MPV 9.1 Absolute Neuts (auto) 9.9 H Neutrophils % 71.6 Neutrophils % (Manual) 89.9 H Band Neutrophils % 1.0 Lymphocytes % 21.7 D Lymphocytes % (Manual) 4.1 L D Monocytes % 6.1 Monocytes % (Manual) 4 Eosinophils % 0.1 D Eosinophils % (Manual) 0.0 Basophils % 0.5 Basophils % (Manual) 0.0 Myelocytes % (Man) 1 D Promyelocytes % (Man) 0 Blast Cells % (Manual) 0 Nucleated RBC % 0 Metamyelocytes 0 Hypochromia 0 Toxic Granulation 0 Dohle Bodies 0 Platelet Estimate Normal Polychromasia 0 Poikilocytosis 0 Basophilic Stippling 0 Anisocytosis 0 Microcytosis 0 Macrocytosis 0 Spherocytes 0 Sickle Cells 0 Target Cells 0 Tear Drop Cells 0 Ovalocytes 0 Stomatocytes 0 Helmet Cells 0 [place] Bodies 0 [place] Rings 0 [place] Cells 0 Acanthocytes (Spur) 0 Rouleaux 0 Fragmented RBCs 0 Schistocytes 0 PT with INR INR Sodium 146 H Potassium 3.9 Chloride 118 H Carbon Dioxide 16 L Anion Gap 12 BUN 43 H Creatinine 2.5 H Creat Clearance w eGFR 27.59 Random Glucose 65 L Calcium 7.3 L 10/16/18 06:00 WBC RBC Hgb Hct MCV MCH MCHC RDW Plt Count MPV Absolute Neuts (auto) Neutrophils % Neutrophils % (Manual) Band Neutrophils % Lymphocytes % Lymphocytes % (Manual) Monocytes % Monocytes % (Manual) Eosinophils % Eosinophils % (Manual) Basophils % Basophils % (Manual) Myelocytes % (Man) Promyelocytes % (Man) Blast Cells % (Manual) Nucleated RBC % Metamyelocytes Hypochromia Toxic Granulation Dohle Bodies Platelet Estimate Polychromasia Poikilocytosis Basophilic Stippling Anisocytosis Microcytosis Macrocytosis Spherocytes Sickle Cells Target Cells Tear Drop Cells Ovalocytes Stomatocytes Helmet Cells [place] Bodies [place] Rings [place] Cells Acanthocytes (Spur) Rouleaux Fragmented RBCs Schistocytes PT with INR 45.50 H INR 3.80 H Sodium Potassium Chloride Carbon Dioxide Anion Gap BUN Creatinine Creat Clearance w eGFR Random Glucose Calcium S1 S 2 RRR Lungs clear Abd- soft, NT Edema+ A/P on coumadin -- hold check stool guaic prognosis guarded supportive care has a new ulcer on left leg +- serous fluid drainage spoke with renal consider palliative care Problem List - Problems (1) DVT (deep venous thrombosis) Code(s): I82.409 - ACUTE EMBOLISM AND THOMBOS UNSP DEEP VN UNSP LOWER EXTREMITY Qualifiers: DVT location: lower extremity Affected thrombotic vein of extremity: unspecified vein of extremity Chronicity: unspecified Laterality: unspecified laterality Qualified Code(s): I82.409 - Acute embolism and thrombosis of unspecified deep veins of unspecified lower extremity (2) Metastatic colon cancer to liver Code(s): C18.9 - MALIGNANT NEOPLASM OF COLON, UNSPECIFIED; C78.7 - SECONDARY MALIG NEOPLASM OF LIVER AND INTRAHEPATIC BILE DUCT (3) Adenocarcinoma Code(s): C80.1 - MALIGNANT (PRIMARY) NEOPLASM, UNSPECIFIED (4) Anemia due to blood loss, chronic Code(s): D50.0 - IRON DEFICIENCY ANEMIA SECONDARY TO BLOOD LOSS (CHRONIC) (5) Hypoalbuminemia due to protein-calorie malnutrition Code(s): E46 - UNSPECIFIED PROTEIN-CALORIE MALNUTRITION
[2018-10-16 14:54] LABS: ACANTHOCYTES 0; ANISOCYTOSIS 0; HELMET CELLS 0; HOWELL-JOLLY BODIES 0; MACROCYTOSIS 0; OVALOCYTE 0; ROULEAU 0; SICKELED CELLS 0; TARGET CELLS 0; TEAR DROP CELLS 0; TOXIC GRANULATION 0
[2018-10-16 14:56] LABS: PLATELET ESTIMATE ADEQUATE
--- NOTE | 2018-10-16 18:28 | PN ---
Progress Note (short form) - Note Progress Note: Renal follow up for ISMAEL Pt seen and examined at the bedside no acute complaints nurse reports diarrhea no fever or abd pain Vital Signs Temperature 97.3 F L 10/16/18 17:54 Pulse Rate 105 H 10/16/18 17:54 Respiratory Rate 18 10/16/18 17:54 Blood Pressure 116/93 10/16/18 17:54 O2 Sat by Pulse Oximetry (%) 100 10/15/18 09:00 NAD awake and alert neck supple, no JVD dec BS at lung bases RRR ++ sacral and LE edema CBC, BMP 10/16/18 06:00 10/15/18 16:20 Current Medications Collagenase (Santyl -) 1 applic TP DAILY [facility]; Protocol Docusate Sodium (Colace -) 100 mg PO HS [facility] Last Admin: 10/15/18 22:57 Dose: 100 mg Fentanyl (Duragesic 12mcg Patch -) 1 patch TD Q72H AJ Stop: 10/10/18 16:14 Last Admin: 10/09/18 15:16 Dose: 1 patch IV Flush (Vu-Cath Flush) 10 ml IVPUSH PRN PRN PRN Reason: FLUSH Last Admin: 10/13/18 06:14 Dose: 10 ml Sodium Chloride (Normal Saline -) 1,000 mls @ 60 mls/hr IV ASDIR AJ Last Admin: 10/16/18 06:27 Dose: 60 mls/hr Miscellaneous (Duragesic Patch Waste) 1 each TD PRN PRN PRN Reason: PAIN Last Admin: 10/09/18 15:22 Dose: 1 each Oxycodone HCl (Roxicodone -) 5 mg PO Q6H PRN PRN Reason: PAIN SCALE 6-10 Pantoprazole Sodium (Protonix -) 40 mg PO DAILY [facility] Last Admin: 10/16/18 11:57 Dose: 40 mg Sodium Bicarbonate (Sodium Bicarbonate -) 1,300 mg PO BID [facility] Last Admin: 10/16/18 11:57 Dose: 1,300 mg Vancomycin HCl (Vancomycin Oral Solution) 125 mg PO Q6HPO [facility] Last Admin: 10/16/18 11:57 Dose: 125 mg 48 year old AA gentleman with hx of Metastatic Colon Ca s/p Colectomy, Hypertension, recent admission with ISMAEL requiring dialysis who presented [place] the [place] with swelling of his LE and found to have extensive DVT with ISMAEL. #ISMAEL with nephrotic range proteinuria #LE DVT #Anemia #Metastatic Colon Ca #Diarrhea with positive C-diff antigen no new labs today, will need BMP to ensure there is no hypokalemia given persistent diarrhea continue supportive care continue oral sodium bicarbonate PO vanco for C. diff prognosis is guarded consider palliative evaluation Thank you Sami Pulido DO
[2018-10-16] MEDS: COLLAGENASE CLOSTRIDIUM HIST. 30 GRAMS TUBE TP SCH (18:47)
[2018-10-16] MEDS ORDERED: INSULIN (NOVOLOG) ASPART 100 UNITS/ML 10ML VIAL ONE (20:51)
--- NOTE | 2018-10-16 22:33 | PN ---
Progress Note (short form) - Note Progress Note: Patient seen and examined FAILURE TO THRIVE WEAK AFVSS Cor: RSR, No murmurs, No gallops Lungs: Clear to P&A Abd: Soft, Normal bowel sounds, No organomegaly ext. neg. LABS/MEDS REVIEWED A/P 48 y/o patient with metastatic rectal cancer, s/p FOLFOX/avastin Now on irinotecan s/p RT to sacral mass DVT poor performance status discussed with patient will discuss with family
[2018-10-16] MEDS: DOCUSATE SODIUM 100 MG CAPSULE (FP) PO SCH (22:40)
[2018-10-16 23:44] LABS: ANION GAP 12 MMOL/L (8-16); BLOOD UREA NITROGEN 44 mg/dL (7-18); CALCIUM 7.4 mg/dL (8.5-10.1); CHLORIDE 120 mmol/L (98-107); CO2 16 mmol/L (21-32); CREATININE 2.6 mg/dL (0.55-1.3); GLUCOSE,RANDOM 56 mg/dL (74-106); POTASSIUM 3.8 mmol/L (3.5-5.1); SODIUM 147 mmol/L (136-145)
[2018-10-17] MEDS: VANCOMYCIN 250 MG/5 ML ORAL SOLUTION PO SCH ×4 (06:00→23:56)
[2018-10-17 07:17] LABS: HEMATOCRIT 35.4 % (35.4-49); MCH 30.2 pg (25.7-33.7); MCHC 33.8 g/dl (32.0-35.9); MEAN CELL VOLUME 89.4 fl (80-96); MEAN PLT VOLUME 8.9 fl (7.5-11.1); PLATELET COUNT 156 K/MM3 (134-434); RBC 3.95 M/mm3 (4.00-5.60); RDW 17.1 % (11.9-15.9); WHITE BLOOD COUNT 13.2 K/mm3 (4.0-10.0)
[2018-10-17 07:24] LABS: PROTHROMBIN TIME (PATIENT) 59.4 SEC (9.7-13.0)
[2018-10-17 07:54] LABS: ANION GAP 13 MMOL/L (8-16); BLOOD UREA NITROGEN 46 mg/dL (7-18); CALCIUM 7.4 mg/dL (8.5-10.1); CHLORIDE 119 mmol/L (98-107); CO2 15 mmol/L (21-32); CREATININE 2.6 mg/dL (0.55-1.3); POTASSIUM 3.8 mmol/L (3.5-5.1); SODIUM 147 mmol/L (136-145)
[2018-10-17 08:23] LABS: GLUCOSE,RANDOM 48 mg/dL (74-106)
[2018-10-17 08:29] LABS: INR 4.95 (0.83-1.09)
[2018-10-17 08:56] LABS: BASO % 0.4 % (0-2.0); EOS % 0.1 % (0-4.5); HEMATOCRIT 36.3 % (35.4-49); LYMPH % 33.3 % (8-40); MCHC 33.1 g/dl (32.0-35.9); MEAN CELL VOLUME 90.8 fl (80-96); MEAN PLT VOLUME 9.4 fl (7.5-11.1); MONO % 4.7 % (3.8-10.2); NEUT % 61.5 % (42.8-82.8); PLATELET COUNT 167 K/MM3 (134-434); RDW 17.4 % (11.9-15.9); WHITE BLOOD COUNT 13.3 K/mm3 (4.0-10.0)
[2018-10-17] MEDS ORDERED: PT OWN MED DRAWER 7, Y5N ONE (09:43)
[2018-10-17 09:44] LABS: ALBUMIN 1.3 g/dl (3.4-5.0); ALK PHOS 987 U/L (45-117); SGOT/AST 120 U/L (15-37); SGPT/ALT 27 U/L (13-61); TOT PROT 4.7 g/dl (6.4-8.2)
[2018-10-17] MEDS: PANTOPRAZOLE 40 MG TABLET (FP) PO SCH (10:02)
[2018-10-17] MEDS: COLLAGENASE CLOSTRIDIUM HIST. 30 GRAMS TUBE TP SCH (10:02)
[2018-10-17] MEDS: SODIUM BICARBONATE 650 MG TABLET PO SCH ×2 (10:02→22:41)
[2018-10-17 10:06] LABS: ANISOCYTOSIS 0; MACROCYTOSIS 0; PLATELET ESTIMATE NORMAL
--- NOTE | 2018-10-17 11:02 | PN ---
Progress Note (short form) - Note Progress Note: Patient seen and examined Poor p.o. intake Requires occasional pain breakthrough pain meds No further diarrhea as yet today Last Vital Signs Temp Pulse Resp BP Pulse Ox 97.3 F L 98 H 18 116/94 100 10/17/18 07:12 10/17/18 07:12 10/17/18 07:12 10/17/18 07:12 10/15/18 09:00 HEENT: EZEQUIEL, EOM Intact Oropharynx: No thrush, No mucositis, coated tongue Cor: RSR, No murmurs, No gallops Lungs: rhonchi and diminished breath sounds Abd: distended ,colostomy, Ext:LE edema bilateral , ulcer LLE sacral decubitus reported Skin: No rashes, Integument intact CBC, BMP 10/17/18 06:30 Current Medications Generic Name Dose Route Start Last Admin Trade Name Freq PRN Reason Stop Dose Admin Collagenase 1 applic 10/16/18 10:00 10/17/18 10:02 Santyl - TP 1 appful DAILY AJ Administration Protocol Docusate Sodium 100 mg 10/01/18 22:00 10/16/18 22:40 Colace - PO 100 mg HS AJ Administration IV Flush 10 ml 10/06/18 18:32 10/13/18 06:14 Vu-Cath Flush IVPUSH 10 ml PRN PRN Administration FLUSH Sodium Chloride 1,000 mls @ 60 mls/hr 10/13/18 13:00 10/16/18 18:46 Normal Saline - IV Not Given ASDIR AJ Miscellaneous 1 each 10/03/18 15:37 10/09/18 15:22 Duragesic Patch Waste TD 1 each PRN PRN Administration PAIN Oxycodone HCl 5 mg 10/13/18 12:49 10/17/18 10:01 Roxicodone - PO 5 mg Q6H PRN Administration PAIN SCALE 6-10 Pantoprazole Sodium 40 mg 10/02/18 10:00 10/17/18 10:02 Protonix - PO 40 mg DAILY AJ Administration Sodium Bicarbonate 1,300 mg 10/15/18 22:00 10/17/18 10:02 Sodium Bicarbonate - PO 1,300 mg BID AJ Administration Vancomycin HCl 125 mg 10/13/18 18:00 10/17/18 06:00 Vancomycin Oral Solution PO 125 mg Q6HPO AJ Administration Impression: Metastatic colon ca s/p FOLFOX, avastin S/P RT to sacral mass Irinotecan chemotherapy Plan: Diflucan Management and long range chemotherapy plans being addressed
--- NOTE | 2018-10-17 11:10 | PN ---
Progress Note (short form) - Note Progress Note: pt seen/ examined chart reviewed all f/u noted/ appreciated. Awake Looks weak but denies pain Afebrile Vital Signs Temp 97.3 F L 10/17/18 07:12 Pulse 98 H 10/17/18 07:12 Resp 18 10/17/18 07:12 BP 116/94 10/17/18 07:12 Pulse Ox 100 10/15/18 09:00 Intake & Output 10/16/18 10/16/18 10/17/18 11:59 23:59 11:59 Intake Total 720 540 620 Output Total 250 100 Balance 470 440 620 Intake: IV 720 240 420 Normal Saline - 1,000 ml 720 240 420 @ 60 mls/hr IV ASDIR [facility] Rx#:[id number] Oral 300 200 Output: Urine 250 100 Void 250 100 Other: Voiding Method Urinal Urinal Urinal # Unmeasured Voids Void 3 Bowel Movement Yes Active Medications Collagenase (Santyl -) 1 applic TP DAILY [facility]; Protocol Last Admin: 10/17/18 10:02 Dose: 1 appful Docusate Sodium (Colace -) 100 mg PO HS [facility] Last Admin: 10/16/18 22:40 Dose: 100 mg Fluconazole (Diflucan -) 100 mg PO DAILY [facility] IV Flush (Vu-Cath Flush) 10 ml IVPUSH PRN PRN PRN Reason: FLUSH Last Admin: 10/13/18 06:14 Dose: 10 ml Sodium Chloride (Normal Saline -) 1,000 mls @ 60 mls/hr IV ASDIR [facility] Last Admin: 10/16/18 18:46 Dose: Not Given Miscellaneous (Duragesic Patch Waste) 1 each TD PRN PRN PRN Reason: PAIN Last Admin: 10/09/18 15:22 Dose: 1 each Oxycodone HCl (Roxicodone -) 5 mg PO Q6H PRN PRN Reason: PAIN SCALE 6-10 Last Admin: 10/17/18 10:01 Dose: 5 mg Pantoprazole Sodium (Protonix -) 40 mg PO DAILY [facility] Last Admin: 10/17/18 10:02 Dose: 40 mg Sodium Bicarbonate (Sodium Bicarbonate -) 1,300 mg PO BID [facility] Last Admin: 10/17/18 10:02 Dose: 1,300 mg Vancomycin HCl (Vancomycin Oral Solution) 125 mg PO Q6HPO [facility] Last Admin: 10/17/18 06:00 Dose: 125 mg CBC, BMP 10/17/18 06:30 CMP Sodium 147 mmol/L (136-145) H 10/17/18 06:00 Potassium 3.8 mmol/L (3.5-5.1) 10/17/18 06:00 Chloride 119 mmol/L (98-107) H 10/17/18 06:00 Carbon Dioxide 15 mmol/L (21-32) L 10/17/18 06:00 Anion Gap 13 MMOL/L (8-16) 10/17/18 06:00 BUN 46 mg/dL (7-18) H 10/17/18 06:00 Creatinine 2.6 mg/dL (0.55-1.3) H 10/17/18 06:00 Creat Clearance w eGFR 26.37 (>60) 10/17/18 06:00 Random Glucose 48 mg/dL (74-106) L* 10/17/18 06:00 Lactic Acid 1.0 mmol/L (0.4-2.0) 10/09/18 10:30 Uric Acid 12.5 mg/dL (2.6-7.2) H 10/10/18 06:10 Calcium 7.4 mg/dL (8.5-10.1) L 10/17/18 06:00 Phosphorus 2.8 mg/dL (2.5-4.9) 10/13/18 06:00 Magnesium 1.9 mg/dL (1.8-2.4) 10/13/18 06:00 Total Bilirubin 2.0 mg/dL (0.2-1) H 10/17/18 06:00 AST 120 U/L (15-37) H 10/17/18 06:00 ALT 27 U/L (13-61) 10/17/18 06:00 Alkaline Phosphatase 987 U/L (45-117) H 10/17/18 06:00 Total Protein 4.7 g/dl (6.4-8.2) L 10/17/18 06:00 Albumin 1.3 g/dl (3.4-5.0) L 10/17/18 06:00 INR, PTT INR 4.95 (0.83-1.09) H* 10/17/18 06:00 Physical exam S1 S 2 RRR Lungs clear Abd- soft, NT Edema+ chronic ill appearance A/P on coumadin -- hold poor performance prognosis guarded supportive care continue present care Follow up INR Will follow Problem List - Problems (1) ISMAEL (acute kidney injury) Code(s): N17.9 - ACUTE KIDNEY FAILURE, UNSPECIFIED (2) DVT (deep venous thrombosis) Code(s): I82.409 - ACUTE EMBOLISM AND THOMBOS UNSP DEEP VN UNSP LOWER EXTREMITY Qualifiers: DVT location: lower extremity Affected thrombotic vein of extremity: unspecified vein of extremity Chronicity: unspecified Laterality: unspecified laterality Qualified Code(s): I82.409 - Acute embolism and thrombosis of unspecified deep veins of unspecified lower extremity (3) Hypoalbuminemia due to protein-calorie malnutrition Code(s): E46 - UNSPECIFIED PROTEIN-CALORIE MALNUTRITION (4) Metastatic colon cancer to liver Code(s): C18.9 - MALIGNANT NEOPLASM OF COLON, UNSPECIFIED; C78.7 - SECONDARY MALIG NEOPLASM OF LIVER AND INTRAHEPATIC BILE DUCT
[2018-10-17] MEDS: FLUCONAZOLE 100 MG TABLET (UD) PO SCH (11:37)
[2018-10-17] MEDS: SODIUM CHLORIDE 1,000 ML IV SCH (13:25)
--- NOTE | 2018-10-17 16:09 | PN ---
Progress Note (short form) - Note Progress Note: Discussed with patients mother over all poor prognosis.
[2018-10-17] MEDS: DRONABINOL 2.5 MG CAPSULE PO SCH (17:33)
[2018-10-17] MEDS ORDERED: FUROSEMIDE 40 MG/4 ML INJECTABLE VIAL IVPUSH ONE (18:04)
--- NOTE | 2018-10-17 18:07 | PN ---
Progress Note (short form) - Note Progress Note: Renal follow up for ISMAEL Pt seen and examined at the bedside no acute complaints on NC O2 no sob, cp making urine but output down as per nurse Vital Signs Temperature 97.4 F L 10/17/18 15:38 Pulse Rate 101 H 10/17/18 15:38 Respiratory Rate 20 10/17/18 15:38 Blood Pressure 114/91 10/17/18 15:38 O2 Sat by Pulse Oximetry (%) 100 10/15/18 09:00 Intake & Output 10/14/18 10/15/18 10/16/18 10/17/18 23:59 23:59 23:59 23:59 Intake Total 240 2040 1260 1190 Output Total 350 600 350 Balance -110 2254 359 9964 NAD awake and alert neck supple, no JVD dec BS at lung bases RRR ++ sacral and LE edema CBC, BMP 10/17/18 06:30 10/17/18 06:30 Current Medications Collagenase (Santyl -) 1 applic TP DAILY [facility]; Protocol Last Admin: 10/17/18 10:02 Dose: 1 appful Docusate Sodium (Colace -) 100 mg PO HS [facility] Last Admin: 10/16/18 22:40 Dose: 100 mg Dronabinol (Marinol -) 2.5 mg PO DAILY [facility] Last Admin: 10/17/18 17:33 Dose: 2.5 mg Fluconazole (Diflucan -) 100 mg PO DAILY [facility] Last Admin: 10/17/18 11:37 Dose: 100 mg IV Flush (Vu-Cath Flush) 10 ml IVPUSH PRN PRN PRN Reason: FLUSH Last Admin: 10/13/18 06:14 Dose: 10 ml Miscellaneous (Duragesic Patch Waste) 1 each TD PRN PRN PRN Reason: PAIN Last Admin: 10/09/18 15:22 Dose: 1 each Oxycodone HCl (Roxicodone -) 5 mg PO Q6H PRN PRN Reason: PAIN SCALE 6-10 Last Admin: 10/17/18 10:01 Dose: 5 mg Pantoprazole Sodium (Protonix -) 40 mg PO DAILY [facility] Last Admin: 10/17/18 10:02 Dose: 40 mg Sodium Bicarbonate (Sodium Bicarbonate -) 1,300 mg PO BID [facility] Last Admin: 10/17/18 10:02 Dose: 1,300 mg Vancomycin HCl (Vancomycin Oral Solution) 125 mg PO Q6HPO [facility] Last Admin: 10/17/18 17:33 Dose: 125 mg 48 year old AA gentleman with hx of Metastatic Colon Ca s/p Colectomy, Hypertension, recent admission with ISMAEL requiring dialysis who presented from the ID with swelling of his LE and found to have extensive DVT with ISMAEL. #ISMAEL with nephrotic range proteinuria #LE DVT #Anemia #Metastatic Colon Ca #Diarrhea with positive C-diff antigen Renal function stable will d/c IVF because of worsening edema will give Lasix 40mg IVP x 1 for decreasing urine output and edema management trend renal function and electrolytes prognosis is guarded consider palliative evaluation Thank you Sami Pulido DO
[2018-10-17] MEDS: DOCUSATE SODIUM 100 MG CAPSULE (FP) PO SCH (22:41)
[2018-10-18] MEDS: VANCOMYCIN 250 MG/5 ML ORAL SOLUTION PO SCH ×4 (05:51→23:27)
[2018-10-18 07:37] LABS: HEMATOCRIT 33.8 % (35.4-49); HEMOGLOBIN 11.2 GM/dL (11.7-16.9); MCH 29.9 pg (25.7-33.7); MCHC 33.3 g/dl (32.0-35.9); MEAN PLT VOLUME 9.3 fl (7.5-11.1); PLATELET COUNT 138 K/MM3 (134-434); RBC 3.76 M/mm3 (4.00-5.60); RDW 17.8 % (11.9-15.9); WHITE BLOOD COUNT 12.9 K/mm3 (4.0-10.0)
[2018-10-18 08:44] LABS: ALBUMIN 1.2 g/dl (3.4-5.0); ALK PHOS 1094 U/L (45-117); ANION GAP 12 MMOL/L (8-16); BILIRUBIN,TOTAL 1.9 mg/dL (0.2-1); BLOOD UREA NITROGEN 48 mg/dL (7-18); CALCIUM 7.5 mg/dL (8.5-10.1); CHLORIDE 118 mmol/L (98-107); CO2 17 mmol/L (21-32); CREATININE 2.7 mg/dL (0.55-1.3); GLUCOSE,RANDOM 81 mg/dL (74-106); POTASSIUM 3.8 mmol/L (3.5-5.1); SGOT/AST 153 U/L (15-37); SGPT/ALT 33 U/L (13-61); SODIUM 147 mmol/L (136-145); TOT PROT 4.6 g/dl (6.4-8.2)
[2018-10-18] MEDS: DRONABINOL 2.5 MG CAPSULE PO SCH (10:01)
[2018-10-18] MEDS: FLUCONAZOLE 100 MG TABLET (UD) PO SCH (10:01)
[2018-10-18] MEDS: SODIUM BICARBONATE 650 MG TABLET PO SCH ×2 (10:01→23:27)
[2018-10-18] MEDS: COLLAGENASE CLOSTRIDIUM HIST. 30 GRAMS TUBE TP SCH (10:01)
[2018-10-18] MEDS: PANTOPRAZOLE 40 MG TABLET (FP) PO SCH (10:01)
[2018-10-18 11:56] LABS: ANISOCYTOSIS 1+; MACROCYTOSIS 0; PLATELET ESTIMATE DECREASED
--- NOTE | 2018-10-18 12:34 | PN ---
Progress Note (short form) - Note Progress Note: appears fatigued No bleeding episodes Vital Signs - 24 hr 10/17/18 10/17/18 10/17/18 15:38 19:04 20:21 Temperature 97.4 F L Pulse Rate 101 H 101 H Respiratory 20 18 18 Rate Blood Pressure 114/91 118/97 O2 Sat by Pulse 98 Oximetry (%) 10/17/18 10/17/18 10/18/18 20:27 22:00 01:48 Temperature 98 F 97.4 F L Pulse Rate 104 H 100 H Respiratory 18 20 18 Rate Blood Pressure 118/93 116/84 O2 Sat by Pulse Oximetry (%) 10/18/18 06:47 Temperature 97.5 F L Pulse Rate 89 Respiratory 18 Rate Blood Pressure 125/91 O2 Sat by Pulse Oximetry (%) Current Medications Generic Name Dose Route Start Last Admin Trade Name Freq PRN Reason Stop Dose Admin Collagenase 1 applic 10/16/18 10:00 10/18/18 10:01 Santyl - TP 1 appful DAILY AJ Administration Protocol Docusate Sodium 100 mg 10/01/18 22:00 10/17/18 22:41 Colace - PO 100 mg HS AJ Administration Dronabinol 2.5 mg 10/17/18 16:45 10/18/18 10:01 Marinol - PO 2.5 mg DAILY AJ Administration Fluconazole 100 mg 10/17/18 11:15 10/18/18 10:01 Diflucan - PO 100 mg DAILY AJ Administration IV Flush 10 ml 10/06/18 18:32 10/13/18 06:14 Vu-Cath Flush IVPUSH 10 ml PRN PRN Administration FLUSH Miscellaneous 1 each 10/03/18 15:37 10/09/18 15:22 Duragesic Patch Waste TD 1 each PRN PRN Administration PAIN Oxycodone HCl 5 mg 10/13/18 12:49 10/17/18 10:01 Roxicodone - PO 5 mg Q6H PRN Administration PAIN SCALE 6-10 Pantoprazole Sodium 40 mg 10/02/18 10:00 10/18/18 10:01 Protonix - PO 40 mg DAILY AJ Administration Sodium Bicarbonate 1,300 mg 10/15/18 22:00 10/18/18 10:01 Sodium Bicarbonate - PO 1,300 mg BID AJ Administration Vancomycin HCl 125 mg 10/13/18 18:00 10/18/18 05:51 Vancomycin Oral Solution PO 125 mg Q6HPO AJ Administration Laboratory Results - last 24 hr 10/14/18 10/17/18 10/17/18 10:50 06:30 08:40 WBC RBC Hgb Hct MCV MCH MCHC RDW Plt Count MPV Absolute Neuts (auto) Neutrophils % Neutrophils % (Manual) Band Neutrophils % Lymphocytes % Lymphocytes % (Manual) Monocytes % (Manual) Eosinophils % (Manual) Basophils % (Manual) Myelocytes % (Man) Promyelocytes % (Man) Blast Cells % (Manual) Nucleated RBC % Metamyelocytes Hypochromia Platelet Estimate Polychromasia Poikilocytosis Anisocytosis Microcytosis Macrocytosis Sodium Cancelled Potassium Cancelled Chloride Cancelled Carbon Dioxide Cancelled Anion Gap Cancelled BUN Cancelled Creatinine Cancelled Creat Clearance w eGFR Cancelled POC Glucometer 64 Random Glucose Cancelled Calcium Cancelled Magnesium Total Bilirubin Cancelled AST Cancelled ALT Cancelled Alkaline Phosphatase Cancelled Total Protein Cancelled Albumin Cancelled Blood Type O POSITIVE Antibody Screen Negative Crossmatch See Detail 10/17/18 10/17/18 10/17/18 09:50 11:38 17:19 WBC RBC Hgb Hct MCV MCH MCHC RDW Plt Count MPV Absolute Neuts (auto) Neutrophils % Neutrophils % (Manual) Band Neutrophils % Lymphocytes % Lymphocytes % (Manual) Monocytes % (Manual) Eosinophils % (Manual) Basophils % (Manual) Myelocytes % (Man) Promyelocytes % (Man) Blast Cells % (Manual) Nucleated RBC % Metamyelocytes Hypochromia Platelet Estimate Polychromasia Poikilocytosis Anisocytosis Microcytosis Macrocytosis Sodium Potassium Chloride Carbon Dioxide Anion Gap BUN Creatinine Creat Clearance w eGFR POC Glucometer 69 81 114 Random Glucose Calcium Magnesium Total Bilirubin AST ALT Alkaline Phosphatase Total Protein Albumin Blood Type Antibody Screen Crossmatch 10/17/18 10/18/18 10/18/18 22:37 05:53 06:30 WBC 12.9 H RBC 3.76 L Hgb 11.2 L Hct 33.8 L MCV 90.0 MCH 29.9 MCHC 33.3 RDW 17.8 H Plt Count 138 MPV 9.3 Absolute Neuts (auto) 7.9 Neutrophils % No Result Required. Neutrophils % (Manual) 92.8 H Band Neutrophils % 0.0 Lymphocytes % No Result Required. Lymphocytes % (Manual) 4.1 L D Monocytes % (Manual) 3 L Eosinophils % (Manual) 0.0 D Basophils % (Manual) 0.0 Myelocytes % (Man) 0 D Promyelocytes % (Man) 0 Blast Cells % (Manual) 0 Nucleated RBC % 0 Metamyelocytes 0 Hypochromia 1+ Platelet Estimate Decreased Polychromasia 1+ Poikilocytosis 0 Anisocytosis 1+ Microcytosis 0 Macrocytosis 0 Sodium Potassium Chloride Carbon Dioxide Anion Gap BUN Creatinine Creat Clearance w eGFR POC Glucometer 80 92 Random Glucose Calcium Magnesium Total Bilirubin AST ALT Alkaline Phosphatase Total Protein Albumin Blood Type Antibody Screen Crossmatch 10/18/18 06:30 WBC RBC Hgb Hct MCV MCH MCHC RDW Plt Count MPV Absolute Neuts (auto) Neutrophils % Neutrophils % (Manual) Band Neutrophils % Lymphocytes % Lymphocytes % (Manual) Monocytes % (Manual) Eosinophils % (Manual) Basophils % (Manual) Myelocytes % (Man) Promyelocytes % (Man) Blast Cells % (Manual) Nucleated RBC % Metamyelocytes Hypochromia Platelet Estimate Polychromasia Poikilocytosis Anisocytosis Microcytosis Macrocytosis Sodium 147 H Potassium 3.8 Chloride 118 H Carbon Dioxide 17 L Anion Gap 12 BUN 48 H Creatinine 2.7 H Creat Clearance w eGFR 25.24 POC Glucometer Random Glucose 81 Calcium 7.5 L Magnesium 2.0 Total Bilirubin 1.9 H AST 153 H ALT 33 Alkaline Phosphatase 1094 H Total Protein 4.6 L Albumin 1.2 L Blood Type Antibody Screen Crossmatch S1 S 2 RRR Lungs clear Abd- soft, NT Edema+ A/P on coumadin -- hold check stool guaic supportive care has a new ulcer on left leg +- serous fluid drainage spoke with renal poor prognosis would do comfort care at this point Problem List - Problems (1) DVT (deep venous thrombosis) Code(s): I82.409 - ACUTE EMBOLISM AND THOMBOS UNSP DEEP VN UNSP LOWER EXTREMITY Qualifiers: DVT location: lower extremity Affected thrombotic vein of extremity: unspecified vein of extremity Chronicity: unspecified Laterality: unspecified laterality Qualified Code(s): I82.409 - Acute embolism and thrombosis of unspecified deep veins of unspecified lower extremity (2) Metastatic colon cancer to liver Code(s): C18.9 - MALIGNANT NEOPLASM OF COLON, UNSPECIFIED; C78.7 - SECONDARY MALIG NEOPLASM OF LIVER AND INTRAHEPATIC BILE DUCT (3) Adenocarcinoma Code(s): C80.1 - MALIGNANT (PRIMARY) NEOPLASM, UNSPECIFIED (4) Anemia due to blood loss, chronic Code(s): D50.0 - IRON DEFICIENCY ANEMIA SECONDARY TO BLOOD LOSS (CHRONIC) (5) Hypoalbuminemia due to protein-calorie malnutrition Code(s): E46 - UNSPECIFIED PROTEIN-CALORIE MALNUTRITION
[2018-10-18] MEDS ORDERED: clonazePAM 0.5 MG TABLET PO PRN (12:42)
[2018-10-18] MEDS ORDERED: oxyCODONE HCL 5 MG TABLET PO PRN (12:42)
--- NOTE | 2018-10-18 15:33 | PN ---
Progress Note (short form) - Note Progress Note: 48 year old AA gentleman with hx of Metastatic Colon Ca s/p Colectomy, Hypertension, s/p ISMAEL requiring dialysis admitted with swelling sunny LE found to have extensive DVT with ISMAEL. Current Medications Clonazepam (Klonopin -) 0.5 mg PO Q8H PRN PRN Reason: ANXIETY Collagenase (Santyl -) 1 applic TP DAILY [facility]; Protocol Last Admin: 10/18/18 10:01 Dose: 1 appful Docusate Sodium (Colace -) 100 mg PO HS [facility] Last Admin: 10/17/18 22:41 Dose: 100 mg Dronabinol (Marinol -) 2.5 mg PO DAILY [facility] Last Admin: 10/18/18 10:01 Dose: 2.5 mg Fluconazole (Diflucan -) 100 mg PO DAILY [facility] Last Admin: 10/18/18 10:01 Dose: 100 mg IV Flush (Vu-Cath Flush) 10 ml IVPUSH PRN PRN PRN Reason: FLUSH Last Admin: 10/13/18 06:14 Dose: 10 ml Miscellaneous (Duragesic Patch Waste) 1 each TD PRN PRN PRN Reason: PAIN Last Admin: 10/09/18 15:22 Dose: 1 each Oxycodone HCl (Roxicodone -) 5 mg PO Q6H PRN PRN Reason: PAIN LEVEL 6-10 Pantoprazole Sodium (Protonix -) 40 mg PO DAILY [facility] Last Admin: 10/18/18 10:01 Dose: 40 mg Sodium Bicarbonate (Sodium Bicarbonate -) 1,300 mg PO BID [facility] Last Admin: 10/18/18 10:01 Dose: 1,300 mg Vancomycin HCl (Vancomycin Oral Solution) 125 mg PO Q6HPO [facility] Last Admin: 10/18/18 14:33 Dose: 125 mg Last Vital Signs Temp Pulse Resp BP Pulse Ox 98.5 F 107 H 18 114/96 98 10/18/18 15:00 10/18/18 15:00 10/18/18 15:00 10/18/18 15:00 10/18/18 09:00 alert , no c/o poor appetite denies sob or cough but coughing during exam Lungs some rhonchi Heart reg Abd soft ext gen edema 3-4+ CBC, BMP 10/18/18 06:30 10/18/18 06:30 IMP -LFTs fluctuating -Hypernatremia -ISMAEL with nephrotic range proteinuria baseline creat 1.1 , chronic fluctions met acidosis -LE DVT -Anemia -Metastatic Colon Ca -Diarrhea with positive C-diff antigen
[2018-10-18] MEDS ORDERED: FUROSEMIDE 40 MG/4 ML INJECTABLE VIAL IVPUSH ONE (15:36)
--- NOTE | 2018-10-18 16:04 | PN ---
Progress Note (short form) - Note Progress Note: Patient seen in follow up. No new complaints. No significant events overnight. Inpatient Meds reviewed. Current Medications Generic Name Dose Route Start Last Admin Trade Name Freq PRN Reason Stop Dose Admin Clonazepam 0.5 mg 10/18/18 12:42 Klonopin - PO Q8H PRN ANXIETY Collagenase 1 applic 10/16/18 10:00 10/18/18 10:01 Santyl - TP 1 appful DAILY AJ Administration Protocol Docusate Sodium 100 mg 10/01/18 22:00 10/17/18 22:41 Colace - PO 100 mg HS AJ Administration Dronabinol 2.5 mg 10/17/18 16:45 10/18/18 10:01 Marinol - PO 2.5 mg DAILY AJ Administration Fluconazole 100 mg 10/17/18 11:15 10/18/18 10:01 Diflucan - PO 100 mg DAILY AJ Administration IV Flush 10 ml 10/06/18 18:32 10/13/18 06:14 Vu-Cath Flush IVPUSH 10 ml PRN PRN Administration FLUSH Miscellaneous 1 each 10/03/18 15:37 10/09/18 15:22 Duragesic Patch Waste TD 1 each PRN PRN Administration PAIN Oxycodone HCl 5 mg 10/18/18 12:42 Roxicodone - PO Q6H PRN PAIN LEVEL 6-10 Pantoprazole Sodium 40 mg 10/02/18 10:00 10/18/18 10:01 Protonix - PO 40 mg DAILY AJ Administration Sodium Bicarbonate 1,300 mg 10/15/18 22:00 10/18/18 10:01 Sodium Bicarbonate - PO 1,300 mg BID AJ Administration Vancomycin HCl 125 mg 10/13/18 18:00 10/18/18 14:33 Vancomycin Oral Solution PO 125 mg Q6HPO AJ Administration On Examination: Last Vital Signs Temp Pulse Resp BP Pulse Ox 98.5 F 107 H 18 114/96 98 10/18/18 15:00 10/18/18 15:00 10/18/18 15:00 10/18/18 15:00 10/18/18 09:00 General: In no acute distress, lying comfortably in bed, sleeping, easily rousable Extremities: No pallor or icterus. No palpable lymphadenopathy. CVS: S1, S2, regular, no gallop or murmur. Chest: good air entry bilaterally, clear Abdomen: Non-distended, non-tender, no palpable organomegaly. Neuro: Alert, non-focal. Labs: CBC, BMP 10/18/18 06:30 10/18/18 06:30 Assessment. Metastatic colon cancer, progression on FOLFOXb. S/P RT to sacral mass. Now on Irinotecan. Recent extensive venous thrombosis - on warfarin - held today supratherapeutic INR. Very poor performance status - Dr. Presley determining utility of administration of additional lines of chemotherapy.
[2018-10-18] MEDS: DOCUSATE SODIUM 100 MG CAPSULE (FP) PO SCH (23:26)
[2018-10-19] MEDS: VANCOMYCIN 250 MG/5 ML ORAL SOLUTION PO SCH ×4 (05:25→23:08)
[2018-10-19] MEDS: FENTANYL PATCH WASTE TD PRN (06:55)
[2018-10-19 06:56] LABS: HEMATOCRIT 34.7 % (35.4-49); HEMOGLOBIN 11.6 GM/dL (11.7-16.9); MCH 29.7 pg (25.7-33.7); MCHC 33.4 g/dl (32.0-35.9); MEAN PLT VOLUME 9.3 fl (7.5-11.1); PLATELET COUNT 134 K/MM3 (134-434); RDW 17.7 % (11.9-15.9); WHITE BLOOD COUNT 12.5 K/mm3 (4.0-10.0)
[2018-10-19 10:30] LABS: ANISOCYTOSIS 1+; MACROCYTOSIS 0; PLATELET ESTIMATE DECREASED
[2018-10-19] MEDS: DRONABINOL 2.5 MG CAPSULE PO SCH (10:31)
[2018-10-19] MEDS: PANTOPRAZOLE 40 MG TABLET (FP) PO SCH (10:31)
[2018-10-19] MEDS: FLUCONAZOLE 100 MG TABLET (UD) PO SCH (10:31)
[2018-10-19] MEDS: SODIUM BICARBONATE 650 MG TABLET PO SCH ×2 (10:32→22:34)
[2018-10-19] MEDS: COLLAGENASE CLOSTRIDIUM HIST. 30 GRAMS TUBE TP SCH (10:38)
--- NOTE | 2018-10-19 11:31 | PN ---
Progress Note (short form) - Note Progress Note: No bleeding episodes not eating very weak Vital Signs - 24 hr 10/18/18 10/18/18 10/18/18 15:00 21:00 22:00 Temperature 98.5 F 98.1 F Pulse Rate 107 H 102 H Respiratory 18 20 Rate Blood Pressure 114/96 119/88 O2 Sat by Pulse 98 Oximetry (%) 10/19/18 10/19/18 10/19/18 05:57 10:00 10:02 Temperature 98.1 F 97.5 F L Pulse Rate 103 H 106 H 106 H Respiratory 20 20 20 Rate Blood Pressure 124/85 120/91 132/58 L O2 Sat by Pulse Oximetry (%) Current Medications Generic Name Dose Route Start Last Admin Trade Name Freq PRN Reason Stop Dose Admin Clonazepam 0.5 mg 10/18/18 12:42 Klonopin - PO Q8H PRN ANXIETY Collagenase 1 applic 10/16/18 10:00 10/19/18 10:38 Santyl - TP 1 appful DAILY AJ Administration Protocol Docusate Sodium 100 mg 10/01/18 22:00 10/18/18 23:26 Colace - PO Not Given HS AJ Dronabinol 2.5 mg 10/17/18 16:45 10/19/18 10:31 Marinol - PO 2.5 mg DAILY AJ Administration Fluconazole 100 mg 10/17/18 11:15 10/19/18 10:31 Diflucan - PO 100 mg DAILY AJ Administration IV Flush 10 ml 10/06/18 18:32 10/13/18 06:14 Vu-Cath Flush IVPUSH 10 ml PRN PRN Administration FLUSH Miscellaneous 1 each 10/03/18 15:37 10/19/18 06:55 Duragesic Patch Waste TD 1 each PRN PRN Administration PAIN Oxycodone HCl 5 mg 10/18/18 12:42 10/19/18 06:12 Roxicodone - PO 5 mg Q6H PRN Administration PAIN LEVEL 6-10 Pantoprazole Sodium 40 mg 10/02/18 10:00 10/19/18 10:31 Protonix - PO 40 mg DAILY AJ Administration Sodium Bicarbonate 1,300 mg 10/15/18 22:00 10/19/18 10:32 Sodium Bicarbonate - PO 1,300 mg BID AJ Administration Vancomycin HCl 125 mg 10/13/18 18:00 10/19/18 05:25 Vancomycin Oral Solution PO 125 mg Q6HPO AJ Administration Laboratory Results - last 24 hr 10/18/18 10/18/18 10/18/18 06:30 16:41 23:44 WBC RBC Hgb Hct MCV MCH MCHC RDW Plt Count MPV Absolute Neuts (auto) Neutrophils % Neutrophils % (Manual) 92.8 H Band Neutrophils % 0.0 Lymphocytes % Lymphocytes % (Manual) 4.1 L D Monocytes % (Manual) 3 L Eosinophils % (Manual) 0.0 D Basophils % (Manual) 0.0 Myelocytes % (Man) 0 D Promyelocytes % (Man) 0 Blast Cells % (Manual) 0 Nucleated RBC % 0 Metamyelocytes 0 Hypochromia 1+ Platelet Estimate Decreased Polychromasia 1+ Poikilocytosis 0 Anisocytosis 1+ Microcytosis 0 Macrocytosis 0 POC Glucometer 90 75 10/19/18 06:30 WBC 12.5 H RBC 3.90 L Hgb 11.6 L Hct 34.7 L MCV 89.0 MCH 29.7 MCHC 33.4 RDW 17.7 H Plt Count 134 MPV 9.3 Absolute Neuts (auto) 9.1 H Neutrophils % No Result Required. Neutrophils % (Manual) 93.9 H Band Neutrophils % 1.0 Lymphocytes % No Result Required. Lymphocytes % (Manual) 1.0 L D Monocytes % (Manual) 3 L Eosinophils % (Manual) 0.0 Basophils % (Manual) 0.0 Myelocytes % (Man) 1 D Promyelocytes % (Man) 0 Blast Cells % (Manual) 0 Nucleated RBC % 0 Metamyelocytes 0 Hypochromia 0 Platelet Estimate Decreased Polychromasia 1+ Poikilocytosis 0 Anisocytosis 1+ Microcytosis 1+ Macrocytosis 0 POC Glucometer S1 S 2 RRR Lungs clear Abd- soft, NT Edema+ A/P on coumadin -- hold- check INR today has a new ulcer on left leg +- serous fluid drainage poor prognosis pain control, klonopin added to help anxiety would do comfort care at this point Problem List - Problems (1) DVT (deep venous thrombosis) Code(s): I82.409 - ACUTE EMBOLISM AND THOMBOS UNSP DEEP VN UNSP LOWER EXTREMITY Qualifiers: DVT location: lower extremity Affected thrombotic vein of extremity: unspecified vein of extremity Chronicity: unspecified Laterality: unspecified laterality Qualified Code(s): I82.409 - Acute embolism and thrombosis of unspecified deep veins of unspecified lower extremity (2) Metastatic colon cancer to liver Code(s): C18.9 - MALIGNANT NEOPLASM OF COLON, UNSPECIFIED; C78.7 - SECONDARY MALIG NEOPLASM OF LIVER AND INTRAHEPATIC BILE DUCT (3) Adenocarcinoma Code(s): C80.1 - MALIGNANT (PRIMARY) NEOPLASM, UNSPECIFIED (4) Anemia due to blood loss, chronic Code(s): D50.0 - IRON DEFICIENCY ANEMIA SECONDARY TO BLOOD LOSS (CHRONIC) (5) Hypoalbuminemia due to protein-calorie malnutrition Code(s): E46 - UNSPECIFIED PROTEIN-CALORIE MALNUTRITION
[2018-10-19 12:04] LABS: ALBUMIN 1.3 g/dl (3.4-5.0); ANION GAP 15 MMOL/L (8-16); BLOOD UREA NITROGEN 49 mg/dL (7-18); CALCIUM 7.4 mg/dL (8.5-10.1); CHLORIDE 123 mmol/L (98-107); CO2 16 mmol/L (21-32); GLUCOSE,RANDOM 68 mg/dL (74-106); POTASSIUM 3.7 mmol/L (3.5-5.1); SODIUM 155 mmol/L (136-145)
[2018-10-19 12:12] LABS: ALK PHOS 1202 U/L (45-117); BILIRUBIN,TOTAL 2.2 mg/dL (0.2-1); CREATININE 2.9 mg/dL (0.55-1.3); SGOT/AST 196 U/L (15-37); SGPT/ALT 40 U/L (13-61); TOT PROT 4.7 g/dl (6.4-8.2)
[2018-10-19 13:35] LABS: PROTHROMBIN TIME (PATIENT) 66.4 SEC (9.7-13.0)
[2018-10-19 14:35] LABS: INR 5.53 (0.83-1.09)
--- NOTE | 2018-10-19 17:28 | PN ---
Progress Note (short form) - Note Progress Note: 48 year old AA gentleman with hx of Metastatic Colon Ca s/p Colectomy, Hypertension, s/p ISMAEL requiring dialysis admitted with swelling sunny LE found to have extensive DVT with ISMAEL. Current Medications Clonazepam (Klonopin -) 0.5 mg PO Q8H PRN PRN Reason: ANXIETY Collagenase (Santyl -) 1 applic TP DAILY [facility]; Protocol Last Admin: 10/19/18 10:38 Dose: 1 appful Docusate Sodium (Colace -) 100 mg PO HS [facility] Last Admin: 10/18/18 23:26 Dose: Not Given Dronabinol (Marinol -) 2.5 mg PO DAILY [facility] Last Admin: 10/19/18 10:31 Dose: 2.5 mg Fluconazole (Diflucan -) 100 mg PO DAILY [facility] Last Admin: 10/19/18 10:31 Dose: 100 mg IV Flush (Vu-Cath Flush) 10 ml IVPUSH PRN PRN PRN Reason: FLUSH Last Admin: 10/13/18 06:14 Dose: 10 ml Miscellaneous (Duragesic Patch Waste) 1 each TD PRN PRN PRN Reason: PAIN Last Admin: 10/19/18 06:55 Dose: 1 each Oxycodone HCl (Roxicodone -) 5 mg PO Q6H PRN PRN Reason: PAIN LEVEL 6-10 Last Admin: 10/19/18 06:12 Dose: 5 mg Pantoprazole Sodium (Protonix -) 40 mg PO DAILY [facility] Last Admin: 10/19/18 10:31 Dose: 40 mg Sodium Bicarbonate (Sodium Bicarbonate -) 1,300 mg PO BID [facility] Last Admin: 10/19/18 10:32 Dose: 1,300 mg Vancomycin HCl (Vancomycin Oral Solution) 125 mg PO Q6HPO [facility] Last Admin: 10/19/18 15:27 Dose: Not Given Last Vital Signs Temp Pulse Resp BP Pulse Ox 98.0 F 112 H 20 117/84 98 10/19/18 15:41 10/19/18 15:41 10/19/18 15:41 10/19/18 15:41 10/18/18 21:00 alert , no c/o poor appetite denies sob or cough but coughing during exam Lungs some rhonchi Heart reg Abd soft ext gen edema 3-4+ CBC, BMP 10/19/18 06:30 10/19/18 10:30 CBC, BMP 10/18/18 06:30 10/18/18 06:30 IMP -LFTs fluctuating -Hypernatremia- worsening -ISMAEL with nephrotic range proteinuria baseline creat 1.1 , chronic fluctions met acidosis -LE DVT -Anemia -Metastatic Colon Ca -Diarrhea with positive C-diff antigen Plan- resume IVF D5W plus KCl monitor weights Daily lasix
[2018-10-19] MEDS: DEXTROSE 5%-WATER - 1,000 ML with POTASSIUM CHLORIDE 40 MEQ IV SCH (22:32)
[2018-10-19] MEDS: DOCUSATE SODIUM 100 MG CAPSULE (FP) PO SCH (22:34)
[2018-10-20] MEDS: VANCOMYCIN 250 MG/5 ML ORAL SOLUTION PO SCH ×3 (06:08→12:35)
[2018-10-20 08:00] LABS: PROTHROMBIN TIME (PATIENT) 65.6 SEC (9.7-13.0)
[2018-10-20 08:13] LABS: HEMATOCRIT 33.1 % (35.4-49); HEMOGLOBIN 11.1 GM/dL (11.7-16.9); MCHC 33.6 g/dl (32.0-35.9); MEAN CELL VOLUME 89.5 fl (80-96); MEAN PLT VOLUME 9.5 fl (7.5-11.1); PLATELET COUNT 121 K/MM3 (134-434); RDW 18.7 % (11.9-15.9)
[2018-10-20 08:25] LABS: INR 5.46 (0.83-1.09)
[2018-10-20 08:50] LABS: ALBUMIN 1.2 g/dl (3.4-5.0); ALK PHOS 1172 U/L (45-117); ANION GAP 13 MMOL/L (8-16); BILIRUBIN,TOTAL 2.2 mg/dL (0.2-1); BLOOD UREA NITROGEN 50 mg/dL (7-18); CALCIUM 7.4 mg/dL (8.5-10.1); CHLORIDE 118 mmol/L (98-107); CO2 18 mmol/L (21-32); CREATININE 3.2 mg/dL (0.55-1.3); GLUCOSE,RANDOM 94 mg/dL (74-106); POTASSIUM 3.6 mmol/L (3.5-5.1); SGOT/AST 150 U/L (15-37); SGPT/ALT 38 U/L (13-61); SODIUM 149 mmol/L (136-145); TOT PROT 4.7 g/dl (6.4-8.2)
[2018-10-20] MEDS: DEXTROSE 5%-WATER - 1,000 ML with POTASSIUM CHLORIDE 40 MEQ IV SCH (08:59)
[2018-10-20] MEDS: PANTOPRAZOLE 40 MG TABLET (FP) PO SCH (09:00)
[2018-10-20] MEDS: DRONABINOL 2.5 MG CAPSULE PO SCH (09:00)
[2018-10-20] MEDS: FLUCONAZOLE 100 MG TABLET (UD) PO SCH (09:01)
[2018-10-20] MEDS: COLLAGENASE CLOSTRIDIUM HIST. 30 GRAMS TUBE TP SCH (09:01)
[2018-10-20] MEDS: SODIUM BICARBONATE 650 MG TABLET PO SCH (09:01)
--- NOTE | 2018-10-20 10:45 | PN ---
Progress Note (short form) - Note Progress Note: Renal follow up for ISMAEL Pt seen and examined at the bedside appears lethargic on D5W reports making urine denies sob, cp, abd pain Vital Signs Temperature 98.3 F 10/20/18 06:00 Pulse Rate 100 H 10/20/18 06:00 Respiratory Rate 20 10/20/18 06:00 Blood Pressure 121/85 10/20/18 06:00 O2 Sat by Pulse Oximetry (%) 98 10/19/18 21:00 Intake & Output 10/17/18 10/18/18 10/19/18 10/20/18 23:59 23:59 23:59 23:59 Intake Total 1440 400 750 625 Output Total 100 950 100 300 Balance 1340 -550 650 325 NAD awake and alert neck supple, no JVD dec BS at lung bases RRR ++ sacral and LE edema CBC, BMP 10/20/18 07:00 10/20/18 07:00 Current Medications Clonazepam (Klonopin -) 0.5 mg PO Q8H PRN PRN Reason: ANXIETY Collagenase (Santyl -) 1 applic TP DAILY [facility]; Protocol Last Admin: 10/20/18 09:01 Dose: 1 appful Docusate Sodium (Colace -) 100 mg PO HS [facility] Last Admin: 10/19/18 22:34 Dose: Not Given Dronabinol (Marinol -) 2.5 mg PO DAILY [facility] Last Admin: 10/20/18 09:00 Dose: 2.5 mg Fluconazole (Diflucan -) 100 mg PO DAILY [facility] Last Admin: 10/20/18 09:01 Dose: 100 mg IV Flush (Vu-Cath Flush) 10 ml IVPUSH PRN PRN PRN Reason: FLUSH Last Admin: 10/13/18 06:14 Dose: 10 ml Potassium Chloride 40 meq/ (Dextrose) 1,020 mls @ 75 mls/hr IV Q13H [facility] Last Admin: 10/20/18 08:59 Dose: Not Given Miscellaneous (Duragesic Patch Waste) 1 each TD PRN PRN PRN Reason: PAIN Last Admin: 10/19/18 06:55 Dose: 1 each Oxycodone HCl (Roxicodone -) 5 mg PO Q6H PRN PRN Reason: PAIN LEVEL 6-10 Last Admin: 10/19/18 06:12 Dose: 5 mg Pantoprazole Sodium (Protonix -) 40 mg PO DAILY [facility] Last Admin: 10/20/18 09:00 Dose: 40 mg Sodium Bicarbonate (Sodium Bicarbonate -) 1,300 mg PO BID [facility] Last Admin: 10/20/18 09:01 Dose: 1,300 mg Vancomycin HCl (Vancomycin Oral Solution) 125 mg PO Q6HPO [facility] Last Admin: 10/20/18 06:21 Dose: Not Given 48 year old AA gentleman with hx of Metastatic Colon Ca s/p Colectomy, Hypertension, recent admission with ISMAEL requiring dialysis who presented from the [place] with swelling of his LE and found to have extensive DVT with ISMAEL. 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
[2018-10-20 11:02] LABS: ACANTHOCYTES 0; ANISOCYTOSIS 0; HELMET CELLS 0; HOWELL-JOLLY BODIES 0; MACROCYTOSIS 0; OVALOCYTE 0; PLATELET ESTIMATE DECREASED; ROULEAU 0; SICKELED CELLS 0; TARGET CELLS 0; TEAR DROP CELLS 0; TOXIC GRANULATION 0
--- NOTE | 2018-10-20 11:46 | PN ---
Progress Note (short form) - Note Progress Note: patient seen and examined sleepy--but arousable Weak all follow-ups noted Vital Signs Temp 97.6 F 10/20/18 10:00 Pulse 109 H 10/20/18 10:00 Resp 22 H 10/20/18 10:00 BP 128/91 10/20/18 10:00 Pulse Ox 99 10/20/18 09:00 Intake & Output 10/19/18 10/19/18 10/20/18 11:59 23:59 11:59 Intake Total 300 450 625 Output Total 100 300 Balance 300 350 325 Intake: IV 300 525 RCW PORT 300 525 IVPB 0 Oral 300 150 100 Output: Urine 100 300 External Catheter 300 Void 100 Other: Voiding Method Urinal External Catheter External Catheter Active Medications Clonazepam (Klonopin -) 0.5 mg PO Q8H PRN PRN Reason: ANXIETY Collagenase (Santyl -) 1 applic TP DAILY [facility]; Protocol Last Admin: 10/20/18 09:01 Dose: 1 appful Docusate Sodium (Colace -) 100 mg PO HS [facility] Last Admin: 10/19/18 22:34 Dose: Not Given Dronabinol (Marinol -) 2.5 mg PO DAILY [facility] Last Admin: 10/20/18 09:00 Dose: 2.5 mg Fluconazole (Diflucan -) 100 mg PO DAILY [facility] Last Admin: 10/20/18 09:01 Dose: 100 mg IV Flush (Vu-Cath Flush) 10 ml IVPUSH PRN PRN PRN Reason: FLUSH Last Admin: 10/13/18 06:14 Dose: 10 ml Potassium Chloride 40 meq/ (Dextrose) 1,020 mls @ 75 mls/hr IV Q13H [facility] Last Admin: 10/20/18 08:59 Dose: Not Given Miscellaneous (Duragesic Patch Waste) 1 each TD PRN PRN PRN Reason: PAIN Last Admin: 10/19/18 06:55 Dose: 1 each Oxycodone HCl (Roxicodone -) 5 mg PO Q6H PRN PRN Reason: PAIN LEVEL 6-10 Last Admin: 10/19/18 06:12 Dose: 5 mg Pantoprazole Sodium (Protonix -) 40 mg PO DAILY [facility] Last Admin: 10/20/18 09:00 Dose: 40 mg Sodium Bicarbonate (Sodium Bicarbonate -) 1,300 mg PO BID [facility] Last Admin: 10/20/18 09:01 Dose: 1,300 mg Vancomycin HCl (Vancomycin Oral Solution) 125 mg PO Q6HPO [facility] Last Admin: 10/20/18 06:21 Dose: Not Given CBC, BMP 10/20/18 07:00 10/20/18 07:00 INR, PTT INR 5.46 (0.83-1.09) H* 10/20/18 07:00 Physical exam S1 S 2 RRR Lungs clear Abd- soft, NT Edema+ week/chronic ill appearance A/P overall condition----very guarded continue present care Coumadin on hold poor prognosis discussed with Dr. Presley also today--- consider hospice evaluation Dr. Presley-- says --she is going to talk to patient's mother Will follow Discussed with nursing staff also Problem List - Problems (1) ISMAEL (acute kidney injury) Code(s): N17.9 - ACUTE KIDNEY FAILURE, UNSPECIFIED (2) DVT (deep venous thrombosis) Code(s): I82.409 - ACUTE EMBOLISM AND THOMBOS UNSP DEEP VN UNSP LOWER EXTREMITY Qualifiers: DVT location: lower extremity Affected thrombotic vein of extremity: unspecified vein of extremity Chronicity: unspecified Laterality: unspecified laterality Qualified Code(s): I82.409 - Acute embolism and thrombosis of unspecified deep veins of unspecified lower extremity (3) Hypoalbuminemia due to protein-calorie malnutrition Code(s): E46 - UNSPECIFIED PROTEIN-CALORIE MALNUTRITION (4) Metastatic colon cancer to liver Code(s): C18.9 - MALIGNANT NEOPLASM OF COLON, UNSPECIFIED; C78.7 - SECONDARY MALIG NEOPLASM OF LIVER AND INTRAHEPATIC BILE DUCT
--- NOTE | 2018-10-20 16:05 | PN ---
Progress Note (short form) - Note Progress Note: Patient seen and exmined WEak poor appetite lethargic but arousable and answering questions appropriately Last Vital Signs Temp Pulse Resp BP Pulse Ox 98 F 102 H 20 116/83 99 10/20/18 13:56 10/20/18 13:56 10/20/18 13:56 10/20/18 13:56 10/20/18 09:00 Cor: RSR, No murmurs, No gallops Lungs: Clear to P&A Abd: Soft, Normal bowel sounds, No organomegaly Ext: 2+ edema b/l Abnormal Lab Results 10/20/18 10/20/18 10/20/18 07:00 07:00 07:00 WBC 13.0 H RBC 3.70 L Hgb 11.1 L Hct 33.1 L RDW 18.7 H Plt Count 121 L Neutrophils % (Manual) 93.9 H Lymphocytes % (Manual) 5.1 L D Monocytes % (Manual) 1 L PT with INR 65.60 H INR 5.46 H* Sodium 149 H Chloride 118 H Carbon Dioxide 18 L BUN 50 H Creatinine 3.2 H Calcium 7.4 L Total Bilirubin 2.2 H AST 150 H Alkaline Phosphatase 1172 H Total Protein 4.7 L Albumin 1.2 L Active Medications Generic Name Dose Route Start Last Admin Trade Name Freq PRN Reason Stop Dose Admin Clonazepam 0.5 mg 10/18/18 12:42 Klonopin - PO Q8H PRN ANXIETY Collagenase 1 applic 10/16/18 10:00 10/20/18 09:01 Santyl - TP 1 appful DAILY [facility] Administration Protocol Docusate Sodium 100 mg 10/01/18 22:00 10/19/18 22:34 Colace - PO Not Given HS AJ Dronabinol 2.5 mg 10/17/18 16:45 10/20/18 09:00 Marinol - PO 2.5 mg DAILY AJ Administration Fluconazole 100 mg 10/17/18 11:15 10/20/18 09:01 Diflucan - PO 100 mg DAILY AJ Administration IV Flush 10 ml 10/06/18 18:32 10/13/18 06:14 Vu-Cath Flush IVPUSH 10 ml PRN PRN Administration FLUSH Potassium Chloride 40 meq/ 1,020 mls @ 75 mls/hr 10/19/18 18:30 10/20/18 08: 59 Dextrose IV Not Given Q13H AJ Miscellaneous 1 each 10/03/18 15:37 10/19/18 06:55 Duragesic Patch Waste TD 1 each PRN PRN Administration PAIN Oxycodone HCl 5 mg 10/18/18 12:42 10/19/18 06:12 Roxicodone - PO 5 mg Q6H PRN Administration PAIN LEVEL 6-10 Pantoprazole Sodium 40 mg 10/02/18 10:00 10/20/18 09:00 Protonix - PO 40 mg DAILY AJ Administration Sodium Bicarbonate 1,300 mg 10/15/18 22:00 10/20/18 09:01 Sodium Bicarbonate - PO 1,300 mg BID AJ Administration Vancomycin HCl 125 mg 10/13/18 18:00 10/20/18 12:35 Vancomycin Oral Solution PO Not Given Q6HPO AJ A/P 48 y/o patient with metastatic rectal cancer, s/p FOLFOX/avastin Was on irinotecan s/p RT to sacral mass DVT-- on coumadin per INR poor performance status failure to thrive given PS will hold off palliative chemotherapy Discussed with patients mother over all poor prognosis. Discussed considering hospice care given worsening overall condition. They are yet to come to decisions reagaring code status. Supportive care ongoing discussions regarding goals of care Possible transfer to [facility] -- gentle hydration at longterm
[2018-10-21] MEDS ORDERED: PORTA CATH FLUSH 10 ML IVPUSH ONE (01:58)
[2018-10-21] MEDS: DEXTROSE 5%-WATER - 1,000 ML with POTASSIUM CHLORIDE 40 MEQ IV SCH ×2 (02:54→17:08)
[2018-10-21] MEDS: DOCUSATE SODIUM 100 MG CAPSULE (FP) PO SCH ×2 (02:55→22:00)
[2018-10-21] MEDS: SODIUM BICARBONATE 650 MG TABLET PO SCH ×4 (02:55→22:35)
[2018-10-21 08:16] LABS: ANION GAP 15 MMOL/L (8-16); BLOOD UREA NITROGEN 53 mg/dL (7-18); CALCIUM 7.7 mg/dL (8.5-10.1); CHLORIDE 118 mmol/L (98-107); CO2 16 mmol/L (21-32); CREATININE 3.3 mg/dL (0.55-1.3); GLUCOSE,RANDOM 81 mg/dL (74-106); MAGNESIUM 1.8 mg/dL (1.8-2.4); PHOSPHOROUS 2.5 mg/dL (2.5-4.9); POTASSIUM 3.9 mmol/L (3.5-5.1); SODIUM 148 mmol/L (136-145)
[2018-10-21] MEDS: PANTOPRAZOLE 40 MG TABLET (FP) PO SCH ×2 (13:17→13:37)
[2018-10-21] MEDS: FLUCONAZOLE 100 MG TABLET (UD) PO SCH ×2 (13:17→13:37)
[2018-10-21] MEDS: DRONABINOL 2.5 MG CAPSULE PO SCH (13:17)
[2018-10-21] MEDS: COLLAGENASE CLOSTRIDIUM HIST. 30 GRAMS TUBE TP SCH (13:17)
--- NOTE | 2018-10-21 13:46 | PN ---
Progress Note (short form) - Note Progress Note: No bleeding episodes not eating very weak Vital Signs - 24 hr 10/20/18 10/20/18 10/20/18 13:56 19:10 21:00 Temperature 98 F 98.2 F Pulse Rate 102 H 98 H Respiratory 20 20 18 Rate Blood Pressure 116/83 114/84 O2 Sat by Pulse 95 Oximetry (%) 10/20/18 10/21/18 22:00 06:44 Temperature 97.6 F 97.8 F Pulse Rate 98 H 104 H Respiratory 18 18 Rate Blood Pressure 114/59 L 123/98 O2 Sat by Pulse Oximetry (%) Current Medications Generic Name Dose Route Start Last Admin Trade Name Freq PRN Reason Stop Dose Admin Collagenase 1 applic 10/16/18 10:00 10/21/18 13:17 Santyl - TP 1 appful DAILY [facility] Administration Protocol Docusate Sodium 100 mg 10/01/18 22:00 10/21/18 02:55 Colace - PO Not Given HS AJ Dronabinol 2.5 mg 10/17/18 16:45 10/21/18 13:17 Marinol - PO 2.5 mg DAILY AJ Administration IV Flush 10 ml 10/06/18 18:32 10/13/18 06:14 Vu-Cath Flush IVPUSH 10 ml PRN PRN Administration FLUSH Potassium Chloride 40 meq/ 1,020 mls @ 75 mls/hr 10/19/18 18:30 10/21/18 02: 54 Dextrose IV 75 mls/hr Q13H AJ Administration Miscellaneous 1 each 10/03/18 15:37 10/19/18 06:55 Duragesic Patch Waste TD 1 each PRN PRN Administration PAIN Pantoprazole Sodium 40 mg 10/02/18 10:00 10/21/18 13:37 Protonix - PO Not Given DAILY AJ Sodium Bicarbonate 1,300 mg 10/15/18 22:00 10/21/18 13:36 Sodium Bicarbonate - PO Not Given BID AJ Laboratory Results - last 24 hr 10/21/18 10/21/18 06:30 06:30 Sodium 148 H Potassium 3.9 Chloride 118 H Carbon Dioxide 16 L Anion Gap 15 BUN 53 H Creatinine 3.3 H Creat Clearance w eGFR 20.03 Random Glucose 81 Calcium 7.7 L Phosphorus 2.5 Magnesium 1.8 Blood Type O POSITIVE Antibody Screen Negative S1 S 2 RRR Lungs clear Abd- soft, NT Edema+ purulent drainage from left leg-- 2 sites A/P on coumadin -- hold- check INR today poor prognosis renal function worsening pt refusing to eat pain control, klonopin added to help anxiety would do comfort care at this point Problem List - Problems (1) DVT (deep venous thrombosis) Code(s): I82.409 - ACUTE EMBOLISM AND THOMBOS UNSP DEEP VN UNSP LOWER EXTREMITY Qualifiers: DVT location: lower extremity Affected thrombotic vein of extremity: unspecified vein of extremity Chronicity: unspecified Laterality: unspecified laterality Qualified Code(s): I82.409 - Acute embolism and thrombosis of unspecified deep veins of unspecified lower extremity (2) Metastatic colon cancer to liver Code(s): C18.9 - MALIGNANT NEOPLASM OF COLON, UNSPECIFIED; C78.7 - SECONDARY MALIG NEOPLASM OF LIVER AND INTRAHEPATIC BILE DUCT (3) Adenocarcinoma Code(s): C80.1 - MALIGNANT (PRIMARY) NEOPLASM, UNSPECIFIED (4) Anemia due to blood loss, chronic Code(s): D50.0 - IRON DEFICIENCY ANEMIA SECONDARY TO BLOOD LOSS (CHRONIC) (5) Hypoalbuminemia due to protein-calorie malnutrition Code(s): E46 - UNSPECIFIED PROTEIN-CALORIE MALNUTRITION
[2018-10-21] MEDS ORDERED: clonazePAM 0.5 MG TABLET PO PRN (13:53)
--- NOTE | 2018-10-21 15:49 | PN ---
Progress Note (short form) - Note Progress Note: Patient seen and examined Bed ridden \ Responds appropriately to questioning Little p.o. Last Vital Signs Temp Pulse Resp BP Pulse Ox 97.3 F L 100 H 20 123/99 95 10/21/18 15:32 10/21/18 15:32 10/21/18 15:32 10/21/18 15:32 10/20/18 21:00 HEENT: EZEQUIEL, EOM Intact Cor: RSR, No murmurs, No gallops Lungs: diminished breath sounds Abd: colostomy , tympanitic Ext:LE edema Skin: breakdown left calf CBC, BMP 10/20/18 07:00 10/21/18 06:30 Current Medications Generic Name Dose Route Start Last Admin Trade Name Freq PRN Reason Stop Dose Admin Clonazepam 0.5 mg 10/21/18 13:53 Klonopin - PO Q8H PRN ANXIETY Collagenase 1 applic 10/16/18 10:00 10/21/18 13:17 Santyl - TP 1 appful DAILY AJ Administration Protocol Docusate Sodium 100 mg 10/01/18 22:00 10/21/18 02:55 Colace - PO Not Given HS AJ Dronabinol 2.5 mg 10/17/18 16:45 10/21/18 13:17 Marinol - PO 2.5 mg DAILY AJ Administration IV Flush 10 ml 10/06/18 18:32 10/13/18 06:14 Vu-Cath Flush IVPUSH 10 ml PRN PRN Administration FLUSH Potassium Chloride 40 meq/ 1,020 mls @ 75 mls/hr 10/19/18 18:30 10/21/18 02: 54 Dextrose IV 75 mls/hr Q13H AJ Administration Miscellaneous 1 each 10/03/18 15:37 10/19/18 06:55 Duragesic Patch Waste TD 1 each PRN PRN Administration PAIN Pantoprazole Sodium 40 mg 10/02/18 10:00 10/21/18 13:37 Protonix - PO Not Given DAILY AJ Sodium Bicarbonate 1,300 mg 10/15/18 22:00 10/21/18 13:36 Sodium Bicarbonate - PO Not Given BID AJ Impression: Metastatic colon ca S/P FOLFOX Sacral mass S/P RT S/p Irinotercan Poor performance status Does not seem suitable to continue with chemotherapy
[2018-10-21] MEDS: POTASSIUM CHLORIDE 40 MEQ in DEXTROSE 5%-WATER - 1,000 ML IVPB SCH (20:00)
--- NOTE | 2018-10-22 12:25 | PN ---
Progress Note (short form) - Note Progress Note: Renal follow up for ISMAEL Pt seen and examined at the bedside lethargic but awake no acute complaints very poor oral intake on IVF Vital Signs Temperature 97.8 F 10/22/18 06:20 Pulse Rate 80 10/22/18 06:20 Respiratory Rate 21 H 10/22/18 06:20 Blood Pressure 138/98 10/22/18 06:20 O2 Sat by Pulse Oximetry (%) 97 10/21/18 21:00 Intake & Output 10/19/18 10/20/18 10/21/18 10/22/18 23:59 23:59 23:59 23:59 Intake Total 750 1450 40 600 Output Total 100 400 200 Balance 650 1050 40 400 NAD awake and alert neck supple, no JVD dec BS at lung bases RRR ++ sacral and LE edema CBC, BMP 10/20/18 07:00 10/21/18 06:30 Current Medications Clonazepam (Klonopin -) 0.5 mg PO Q8H PRN PRN Reason: ANXIETY Collagenase (Santyl -) 1 applic TP DAILY [facility]; Protocol Last Admin: 10/21/18 13:17 Dose: 1 appful Docusate Sodium (Colace -) 100 mg PO HS AJ Last Admin: 10/21/18 22:00 Dose: Not Given Dronabinol (Marinol -) 2.5 mg PO DAILY [facility] Last Admin: 10/21/18 13:17 Dose: 2.5 mg IV Flush (Vu-Cath Flush) 10 ml IVPUSH PRN PRN PRN Reason: FLUSH Last Admin: 10/13/18 06:14 Dose: 10 ml Amino Acids (Clinimix -) 1,000 mls @ 42 mls/hr IV Q12H [facility] Miscellaneous (Duragesic Patch Waste) 1 each TD PRN PRN PRN Reason: PAIN Last Admin: 10/19/18 06:55 Dose: 1 each Pantoprazole Sodium (Protonix -) 40 mg PO DAILY [facility] Last Admin: 10/21/18 13:37 Dose: Not Given Sodium Bicarbonate (Sodium Bicarbonate -) 1,300 mg PO BID [facility] Last Admin: 10/21/18 22:35 Dose: Not Given 48 year old AA gentleman with hx of Metastatic Colon Ca s/p Colectomy, Hypertension, recent admission with ISMAEL requiring dialysis who presented from the [place] with swelling of his LE and found to have extensive DVT with ISMAEL. 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
[2018-10-22] MEDS: PANTOPRAZOLE 40 MG TABLET (FP) PO SCH (12:43)
[2018-10-22] MEDS: SODIUM BICARBONATE 650 MG TABLET PO SCH ×2 (12:46→22:09)
[2018-10-22] MEDS: COLLAGENASE CLOSTRIDIUM HIST. 30 GRAMS TUBE TP SCH (13:15)
[2018-10-22] MEDS ORDERED: FENTANYL PATCH WASTE MC PRN (14:46)
--- NOTE | 2018-10-22 14:46 | PN ---
Progress Note (short form) - Note Progress Note: No bleeding episodes not eating lethargic Vital Signs - 24 hr 10/21/18 10/21/18 10/21/18 15:32 18:06 21:00 Temperature 97.3 F L 97.4 F L Pulse Rate 100 H 101 H Respiratory 20 20 21 H Rate Blood Pressure 123/99 119/88 O2 Sat by Pulse 97 Oximetry (%) 10/21/18 10/22/18 22:00 06:20 Temperature 97.9 F 97.8 F Pulse Rate 96 H 80 Respiratory 21 H 21 H Rate Blood Pressure 120/82 138/98 O2 Sat by Pulse Oximetry (%) Current Medications Generic Name Dose Route Start Last Admin Trade Name Freq PRN Reason Stop Dose Admin Clonazepam 0.5 mg 10/21/18 13:53 Klonopin - PO Q8H PRN ANXIETY Collagenase 1 applic 10/16/18 10:00 10/21/18 13:17 Santyl - TP 1 appful DAILY AJ Administration Protocol Docusate Sodium 100 mg 10/01/18 22:00 10/21/18 22:00 Colace - PO Not Given HS AJ Dronabinol 2.5 mg 10/17/18 16:45 10/21/18 13:17 Marinol - PO 2.5 mg DAILY AJ Administration IV Flush 10 ml 10/06/18 18:32 10/13/18 06:14 Vu-Cath Flush IVPUSH 10 ml PRN PRN Administration FLUSH Amino Acids 1,000 mls @ 42 mls/hr 10/22/18 12:30 Clinimix - IV Q12H AJ Miscellaneous 1 each 10/03/18 15:37 10/19/18 06:55 Duragesic Patch Waste TD 1 each PRN PRN Administration PAIN Pantoprazole Sodium 40 mg 10/02/18 10:00 10/22/18 12:43 Protonix - PO Not Given DAILY AJ Sodium Bicarbonate 1,300 mg 10/15/18 22:00 10/22/18 12:46 Sodium Bicarbonate - PO Not Given BID AJ S1 S 2 RRR Lungs clear Abd- soft, NT Edema+ purulent drainage from left leg-- 2 sites A/P pt is now DNR/DNI agreeable to [facility] he was coherent yesterday and decision was made by him and his mother yesterday poor prognosis pt refusing to eat pain control, klonopin added to help anxiety would do comfort care at this point- hospice Problem List - Problems (1) DVT (deep venous thrombosis) Code(s): I82.409 - ACUTE EMBOLISM AND THOMBOS UNSP DEEP VN UNSP LOWER EXTREMITY Qualifiers: DVT location: lower extremity Affected thrombotic vein of extremity: unspecified vein of extremity Chronicity: unspecified Laterality: unspecified laterality Qualified Code(s): I82.409 - Acute embolism and thrombosis of unspecified deep veins of unspecified lower extremity (2) Metastatic colon cancer to liver Code(s): C18.9 - MALIGNANT NEOPLASM OF COLON, UNSPECIFIED; C78.7 - SECONDARY MALIG NEOPLASM OF LIVER AND INTRAHEPATIC BILE DUCT (3) Adenocarcinoma Code(s): C80.1 - MALIGNANT (PRIMARY) NEOPLASM, UNSPECIFIED (4) Anemia due to blood loss, chronic Code(s): D50.0 - IRON DEFICIENCY ANEMIA SECONDARY TO BLOOD LOSS (CHRONIC) (5) Hypoalbuminemia due to protein-calorie malnutrition Code(s): E46 - UNSPECIFIED PROTEIN-CALORIE MALNUTRITION
[2018-10-22] MEDS ORDERED: fentaNYL 12mcg/hr PATCH.TD72 TD SCH (15:00)
[2018-10-22] MEDS: AMINO ACIDS 4.25%/D5W 1,000 ML IV SCH (15:15)
[2018-10-22] MEDS: DRONABINOL 2.5 MG CAPSULE PO SCH (15:16)
[2018-10-22] MEDS: LORazepam 2 MG/ML SDV VIAL IVPUSH PRN (18:33)
--- NOTE | 2018-10-22 18:34 | PN ---
Progress Note (short form) - Note Progress Note: Discuused with mother/health care proxy and recommended hospice placement due to worsening clinical status
[2018-10-22] MEDS: DOCUSATE SODIUM 100 MG CAPSULE (FP) PO SCH (22:09)
[2018-10-23] MEDS: POTASSIUM CHLORIDE 40 MEQ in DEXTROSE 5%-WATER - 1,000 ML IVPB SCH (08:51)
[2018-10-23] MEDS: PANTOPRAZOLE 40 MG TABLET (FP) PO SCH (09:06)
[2018-10-23] MEDS: DRONABINOL 2.5 MG CAPSULE PO SCH (09:06)
[2018-10-23] MEDS: SODIUM BICARBONATE 650 MG TABLET PO SCH (09:06)
[2018-10-23] MEDS: LORazepam 2 MG/ML SDV VIAL IVPUSH PRN (09:07)
[2018-10-23] MEDS: COLLAGENASE CLOSTRIDIUM HIST. 30 GRAMS TUBE TP SCH ×2 (09:07→09:41)
[2018-10-23] MEDS ORDERED: MORPHINE SULFATE 2 MG/ML VIAL IVPUSH PRN ×2 (09:27→16:39)
--- NOTE | 2018-10-23 09:27 | PN ---
Progress Note (short form) - Note Progress Note: Patient seen and examined Sedated Last Vital Signs Temp Pulse Resp BP Pulse Ox 97.6 F 101 H 18 101/67 97 10/23/18 05:08 10/23/18 05:08 10/23/18 05:08 10/23/18 05:08 10/22/18 21:00 Cor: RSR, No murmurs, No gallops Lungs: Clear to P&A Abd: Soft, Normal bowel sounds, No organomegaly Ext:No significant edema Labs/MEds reviewed A/P 48 y/o patient with metastatic rectal cancer, liver/lung mets , now with worsening renal failure Worsening functional status Discussed with health care proxy, mother --who is in agreement with hospice Patient just received ativan and is sedated morphine SC prn Informed mother of overall worsening condition
[2018-10-23] MEDS ORDERED: MORPHINE 100 MG in SODIUM CHLORIDE 98 ML IVPB SCH (09:30)
--- NOTE | 2018-10-23 10:12 | PN ---
Progress Note (short form) - Note Progress Note: pt seen/ examined chart reviewed. discussed with Dr. Presley Comfort care Drowsy/ sleeping Comfortable CBC, BMP 10/20/18 07:00 10/21/18 06:30 Active Medications Collagenase (Santyl -) 1 applic TP DAILY [facility]; Protocol Last Admin: 10/23/18 09:41 Dose: 1 appful Docusate Sodium (Colace -) 100 mg PO HS [facility] Last Admin: 10/22/18 22:09 Dose: Not Given Dronabinol (Marinol -) 2.5 mg PO DAILY [facility] Last Admin: 10/23/18 09:06 Dose: Not Given Fentanyl (Duragesic 12mcg Patch -) 1 patch TD Q72H [facility] Stop: 10/29/18 14:46 Last Admin: 10/22/18 15:16 Dose: 1 patch IV Flush (Vu-Cath Flush) 10 ml IVPUSH PRN PRN PRN Reason: FLUSH Last Admin: 10/13/18 06:14 Dose: 10 ml Amino Acids (Clinimix -) 1,000 mls @ 42 mls/hr IV Q12H [facility] Last Admin: 10/23/18 00:00 Dose: 42 mls/hr Lorazepam (Ativan Injection -) 0.5 mg IVPUSH Q6H PRN PRN Reason: ANXIETY Last Admin: 10/23/18 09:07 Dose: 0.5 mg Miscellaneous (Duragesic Patch Waste) 1 each TD PRN PRN PRN Reason: PAIN Last Admin: 10/19/18 06:55 Dose: 1 each Miscellaneous (Duragesic Patch Waste) 1 each MC PRN PRN PRN Reason: PAIN Morphine Sulfate (Morphine Sulfate) 1 mg IVPUSH Q6H PRN PRN Reason: PAIN LEVEL 1-5 Pantoprazole Sodium (Protonix -) 40 mg PO DAILY [facility] Last Admin: 10/23/18 09:06 Dose: Not Given Sodium Bicarbonate (Sodium Bicarbonate -) 1,300 mg PO BID [facility] Last Admin: 10/23/18 09:06 Dose: Not Given CBC, BMP 10/20/18 07:00 10/21/18 06:30 Vital Signs Temp 97.6 F 10/23/18 05:08 Pulse 101 H 10/23/18 05:08 Resp 18 10/23/18 05:08 BP 101/67 10/23/18 05:08 Pulse Ox 97 10/22/18 21:00 Intake & Output 10/22/18 10/22/18 10/23/18 11:59 23:59 11:59 Intake Total 600 336 Output Total 200 250 200 Balance 400 -250 136 Intake: IV 600 336 RCW PORT 600 336 Output: Urine 200 250 200 External Catheter 200 150 200 Void 100 Other: Voiding Method External Catheter External Catheter Bowel Movement Yes physical exam chronic ill appearance Week S1 S 2 RRR Lungs clear Abd- soft, NT Edema+ purulent drainage from left leg-- 2 sites A/P I agree with comfort care pt is DNR/DNI pain control would do comfort care at this point- hospice Will follow Discussed with nursing Staff also Problem List - Problems (1) ISMAEL (acute kidney injury) Code(s): N17.9 - ACUTE KIDNEY FAILURE, UNSPECIFIED (2) DVT (deep venous thrombosis) Code(s): I82.409 - ACUTE EMBOLISM AND THOMBOS UNSP DEEP VN UNSP LOWER EXTREMITY Qualifiers: DVT location: lower extremity Affected thrombotic vein of extremity: unspecified vein of extremity Chronicity: unspecified Laterality: unspecified laterality Qualified Code(s): I82.409 - Acute embolism and thrombosis of unspecified deep veins of unspecified lower extremity (3) Hypoalbuminemia due to protein-calorie malnutrition Code(s): E46 - UNSPECIFIED PROTEIN-CALORIE MALNUTRITION (4) Metastatic colon cancer to liver Code(s): C18.9 - MALIGNANT NEOPLASM OF COLON, UNSPECIFIED; C78.7 - SECONDARY MALIG NEOPLASM OF LIVER AND INTRAHEPATIC BILE DUCT
[2018-10-23] MEDS: AMINO ACIDS 4.25%/D5W 1,000 ML IV SCH ×2 (11:45)
[2018-10-23] MEDS: MORPHINE SULFATE 2 MG/ML VIAL IVPUSH PRN (17:48)
[2018-10-24] MEDS: MORPHINE SULFATE 2 MG/ML VIAL IVPUSH PRN ×6 (00:19→21:40)
[2018-10-24] MEDS: DOCUSATE SODIUM 100 MG CAPSULE (FP) PO SCH ×2 (00:20→22:17)
[2018-10-24] MEDS: SODIUM BICARBONATE 650 MG TABLET PO SCH ×3 (00:20→22:17)
[2018-10-24] MEDS ORDERED: PORTA CATH FLUSH 10 ML IVPUSH ONE (01:30)
[2018-10-24] MEDS: COLLAGENASE CLOSTRIDIUM HIST. 30 GRAMS TUBE TP SCH (09:23)
[2018-10-24] MEDS: PANTOPRAZOLE 40 MG TABLET (FP) PO SCH (09:23)
[2018-10-24] MEDS: DRONABINOL 2.5 MG CAPSULE PO SCH (09:23)
[2018-10-24] MEDS: AMINO ACIDS 4.25%/D5W 1,000 ML IV SCH (11:02)
--- NOTE | 2018-10-24 12:10 | PN ---
Progress Note (short form) - Note Progress Note: pt seen/ examined poorly responsive comfortable Vital Signs Temp 97.7 F 10/24/18 05:30 Pulse 83 10/24/18 05:30 Resp 16 10/24/18 05:30 BP 77/53 L 10/24/18 05:30 Pulse Ox 95 10/23/18 21:00 Intake & Output 10/23/18 10/24/18 10/24/18 23:59 11:59 23:59 Intake Total 336 462 Output Total 100 Balance 236 462 Intake: IV 336 462 RCW PORT 336 462 Oral 0 Output: Urine 100 Void 100 Other: Voiding Method External Catheter External Catheter Bowel Movement No Active Medications Collagenase (Santyl -) 1 applic TP DAILY [facility]; Protocol Last Admin: 10/24/18 09:23 Dose: 1 appful Docusate Sodium (Colace -) 100 mg PO HS [facility] Last Admin: 10/24/18 00:20 Dose: Not Given Dronabinol (Marinol -) 2.5 mg PO DAILY [facility] Last Admin: 10/24/18 09:23 Dose: Not Given IV Flush (Vu-Cath Flush) 10 ml IVPUSH PRN PRN PRN Reason: FLUSH Last Admin: 10/13/18 06:14 Dose: 10 ml Amino Acids (Clinimix -) 1,000 mls @ 42 mls/hr IV Q24H [facility] Last Admin: 10/24/18 11:02 Dose: 42 mls/hr Morphine Sulfate (Morphine Sulfate) 1.5 mg IVPUSH Q3H PRN PRN Reason: PAIN LEVEL 1-5 Last Admin: 10/24/18 09:24 Dose: 1.5 mg Pantoprazole Sodium (Protonix -) 40 mg PO DAILY [facility] Last Admin: 10/24/18 09:23 Dose: Not Given Sodium Bicarbonate (Sodium Bicarbonate -) 1,300 mg PO BID [facility] Last Admin: 10/24/18 09:24 Dose: Not Given CBC, BMP 10/20/18 07:00 10/21/18 06:30 physical exam poorly responsive S1 S 2 RRR Lungs clear Abd- soft, NT Edema+ A/P comfort care pt is DNR/DNI pain control - hospice Will follow Discussed with nursing Staff also as well as with hospice nurse prognosis poor Problem List - Problems (1) ISMAEL (acute kidney injury) Code(s): N17.9 - ACUTE KIDNEY FAILURE, UNSPECIFIED (2) DVT (deep venous thrombosis) Code(s): I82.409 - ACUTE EMBOLISM AND THOMBOS UNSP DEEP VN UNSP LOWER EXTREMITY Qualifiers: DVT location: lower extremity Affected thrombotic vein of extremity: unspecified vein of extremity Chronicity: unspecified Laterality: unspecified laterality Qualified Code(s): I82.409 - Acute embolism and thrombosis of unspecified deep veins of unspecified lower extremity (3) Hypoalbuminemia due to protein-calorie malnutrition Code(s): E46 - UNSPECIFIED PROTEIN-CALORIE MALNUTRITION (4) Metastatic colon cancer to liver Code(s): C18.9 - MALIGNANT NEOPLASM OF COLON, UNSPECIFIED; C78.7 - SECONDARY MALIG NEOPLASM OF LIVER AND INTRAHEPATIC BILE DUCT
--- NOTE | 2018-10-24 16:18 | PN ---
Progress Note (short form) - Note Progress Note: Pt is comfort care at this time. No further aggressive measures needed. No labs to be drawn. Will sign off case at this time Sami Pulido DO
[2018-10-25] MEDS: MORPHINE SULFATE 2 MG/ML VIAL IVPUSH PRN (00:50)
[2018-10-25 02:42] VITALS: BP 74/52; PULSE 68; TEMP 97
--- NOTE | 2018-10-25 05:11 | PN ---
Progress Note (short form) - Note Progress Note: Briefly, pt is 48yo M with metastatic liver cancer who was recently made comfort care and accepted to inpatient hospice 10/24/18. Paged by nursing staff earlier due to pt found to be unresponsive and without a pulse on nursing rounds. Attended to patient and found unresponsive even to sternal rub. Pupils are fixed and nonreactive. Pt has no spontaneous breathing, heart or breath sounds to auscultation. No carotid or femoral pulses are present. Pt's brainstem reflexes are completely absent. Time of 0420 on 10/25/18. Pt's family to be notified Pt's primary care physician to be notified. Grievance services to be offered to family Body to be released to home of family's choice.
== END 2018-10-25 11:05 | disposition expired | DRG 374 ==
LOC: JER 10:08 → JERBED 10:59 → J7W 19:40 → OBSVTOIN 10-02 11:07
PROVIDERS: ADMIT Internal Medicine; ATTEND Internal Medicine
PROC: 30233N1 Transfusion of Nonautologous Red Blood Cells into Peripheral Vein, Percutaneous Approach (ICD-10-PCS; principal; 2018-10-09)
DX: C18.9 Malignant neoplasm of colon, unspecified (principal); E43 Unspecified severe protein-calorie malnutrition; C78.7 Secondary malignant neoplasm of liver and intrahepatic bile duct; N17.9 Acute kidney failure, unspecified; I82.409 Acute embolism and thrombosis of unspecified deep veins of unspecified lower extremity; A04.72 Enterocolitis due to Clostridium difficile, not specified as recurrent; E87.2 Acidosis; E87.0 Hyperosmolality and hypernatremia; D68.9 Coagulation defect, unspecified; R64 Cachexia; C78.00 Secondary malignant neoplasm of unspecified lung; D50.0 Iron deficiency anemia secondary to blood loss (chronic); I12.9 Hypertensive chronic kidney disease with stage 1 through stage 4 chronic kidney disease, or unspecified chronic kidney disease; N18.9 Chronic kidney disease, unspecified; D72.829 Elevated white blood cell count, unspecified; Z68.30 Body mass index [BMI] 30.0-30.9, adult; E86.1 Hypovolemia; E83.51 Hypocalcemia; I95.9 Hypotension, unspecified; R62.7 Adult failure to thrive; E88.09 Other disorders of plasma-protein metabolism, not elsewhere classified
CPT/HCPCS: 36415; 36430; 36511; 70450-TC; 71045-TC-FY; 76775-TC; 80048; 80053; 81003; 81015; 82570; 82962; 83605; 83735; 84100; 84156; 84300; 84550; 85025; 85027; 85610; 85730; 86038; 86593; 86850; 86900; 86901; 86922; 87040; 87086; 87324; 87449; 87493; 93005; 93010; 93971-TC; 93976; 97116-GP; 97162-GP; 99284-25; G0378; J1644; J7030; P9038; P9047; P9058